=== PATIENT | female | born 2000 | race Caucasian/White ===

== ENCOUNTER 2024-07-01 18:38 | Emergency (ER) | payer SELFPAY ==
[2024-07-01 18:44] VITALS: BP 146/86; PULSE 109; TEMP 38.1; O2SAT 99; BMI 25.6
[2024-07-01 19:16] LABS: Internal Control Within Normal Limits; Strep A Antigen Screen Negative
[2024-07-01 19:18] LABS: Influenza Virus A Antigen Negative; Influenza Virus B Antigen Negative; Internal Control Within Normal Limits; SARS-CoV-2 Ag NEGATIVE (NEGATIVE)
--- NOTE | 2024-07-01 19:43 | ED_ITS ---
HPI HPI - General Adult General Chief complaint: Upper Respiratory Infection Stated complaint: sore throat Time Seen by Provider: 07/01/24 19:16 Source: patient and friend Mode of arrival: walk-in Limitations: no limitations History of Present Illness HPI narrative: Patient is a 24-year-old female who presents to the emergency department for evaluation of multiple complaints. She states her primary concern is a sore throat for the last 2 days associated with nasal congestion, cough and low-grade fevers. She further complains of vaginal lesions and rectal pain. She was seen at the [facility] emergency department 2 days ago when the lesions started and states that she had swabs performed to be checked for STDs, she also had her urine specimen checked. She states that she was not prescribed any medication for the lesions on the vagina states she also has sharp rectal pain. She has a history of constipation and takes MiraLAX infrequently although she has not had any significant abdominal pain or vomiting. No concern for . Related Data Previous Rx's ?Medication ?Instructions ?Recorded acyclovir 400 mg tablet 400 mg PO Q8H 10 days #30 tabs 07/01/24 nqrwflkyndcutva-ivlszrmrmwakdjf-RX 10 ml PO Q6H PRN cold symptoms 07/01/24 2 mg-30 mg-10 mg/5 mL oral syrup #200 mL (Bromfed DM) hydrocodone 5 mg-acetaminophen 325 1 tab PO Q6H PRN pain 3 days #12 07/01/24 mg tablet tabs ketorolac 10 mg tablet 10 mg PO TID PRN pain #10 tabs 07/01/24 lidocaine 5 % topical cream 1 applic topical QID PRN pain #30 07/01/24 grams ondansetron 4 mg disintegrating 4 mg PO Q6H PRN nausea and 07/01/24 tablet vomiting #12 tabs polyethylene glycol 3350 17 17 g PO DAILY #238 grams 07/01/24 gram/dose oral powder (Miralax) Allergies Allergy/AdvReac Type Severity Reaction Status Date / Time No Known Drug Allergies Allergy Verified 07/01/24 18:49 Opioid HPI Opioid Management Most Recent Opioid Data: No Data to Display Review of Systems ROS Constitutional Reports: fever; Denies: chills Ears, nose, mouth, and throat Reports: throat pain and nasal congestion Cardiovascular Denies: chest pain Respiratory Reports: cough; Denies: shortness of breath Gastrointestinal Reports: nausea and constipation; Denies: abdominal pain, vomiting or diarrhea Genitourinary Reports: painful urination and genital lesion Musculoskeletal Denies: back pain Integumentary/Breast Reports: rash, skin pain, sores and new lesion Hematologic/Lymphatic Denies: easy bruising or easy bleeding [facility] Social History Little interest or pleasure in doing things: not at all Feeling down, depressed, or hopeless: not at all Exam Narrative Exam Narrative: Gen.: Awake, alert, in no distress Head: Normocephalic, atraumatic ENT: Moist mucous membranes, pharyngeal erythema with no tonsillar edema or exudate. Uvula midline. Clear speech. No trismus or drooling. Right TM is mildly erythematous and injected, bulging, left TM is also bulging Respiratory: No respiratory distress, lungs clear bilaterally, no wheezing or rhonchi Cardio: Regular rate and rhythm Gastrointestinal: Abdomen is soft, nondistended and nontender to palpation : exam performed with Kelin Betancourt RN at bedside throughout the duration of the exam. Patient is noted to have multiple ulcerated lesions to the labia as well as less ulcerated lesions to the rectum. No noted hemorrhoids or rectal bleeding. No purulence noted. Extremities: Moves extremities equally Psych: Normal mood and affect Neuro: No focal neuro deficit Skin: Warm, dry, intact Constitutional Vital Signs, click to edit/add: Last Vital Signs Temp 100.5 F H 07/01/24 18:44 Pulse 109 H 07/01/24 18:44 Resp 18 07/01/24 18:44 BP 146/86 H 07/01/24 18:44 Pulse Ox 99 07/01/24 18:44 O2 Del Method Room Air 07/01/24 18:44 Course Vital Signs Vital signs: Vital Signs Temperature 100.5 F H 07/01/24 18:44 Pulse Rate 109 H 07/01/24 18:44 Respiratory Rate 18 07/01/24 18:44 Blood Pressure 146/86 H 07/01/24 18:44 Pulse Oximetry 99 07/01/24 18:44 Oxygen Delivery Method Room Air 07/01/24 18:44 Temperature 100.5 F H 07/01/24 18:44 Pulse Rate 109 H 07/01/24 18:44 Respiratory Rate 18 07/01/24 18:44 Blood Pressure 146/86 H 07/01/24 18:44 Pulse Oximetry 99 07/01/24 18:44 Oxygen Delivery Method Room Air 07/01/24 18:44 Medical Decision Making MDM Narrative Medical decision making narrative: Physical exam is consistent with upper respiratory infection, right otitis media. Patient was negative for COVID, influenza and strep. She was given Decadron and will be started on antibiotics and Bromfed for her upper respiratory symptoms. Her exam is consistent with genital herpes. She was placed on a stool softener for constipation as well as started on acyclovir, topical analgesia, NSAIDs and a short course of analgesics. She was referred to gynecology and were instructed to return to the ER if symptoms change or worsen. SUPERVISED APC VISIT, PHYSICIAN ATTESTATION: Based on the medical record the care appears appropriate. ? Medical Records Medical records reviewed: Yes I reviewed the patient's medical records Lab Data Lab results reviewed: Yes I reviewed the patient's lab results Labs: Lab Results 07/01/24 Range/Units 18:54 Influenza Type A Ag Negative Influenza Type B Ag Negative SARS-CoV-2 Ag (CV2AG) Negative (NEGATIVE) Streptococcus Screen Negative Discharge Plan Discharge Chief Complaint: Upper Respiratory Infection Clinical Impression: Upper respiratory infection, Pharyngitis, Acute right otitis media, Genital herpes Patient Disposition: Home, Self-Care Time of Disposition Decision: 19:39 Condition: Good Prescriptions / Home Meds: New acyclovir 400 mg tablet 400 mg PO Q8H 10 Days Qty: 30 0RF hydrocodone-acetaminophen 5-325 mg tablet 1 tab PO Q6H PRN (Reason: pain) 3 Days Qty: 12 0RF Rx Instructions: DX: R10.9 ketorolac 10 mg tablet 10 mg PO TID PRN (Reason: pain) Qty: 10 0RF gwrlwibngtkjkof-xvolxovmf-RS [Bromfed DM] 2-30-10 mg/5 mL syrup 10 ml PO Q6H PRN (Reason: cold symptoms) Qty: 200 0RF ondansetron 4 mg tablet,disintegrating 4 mg PO Q6H PRN (Reason: nausea and vomiting) Qty: 12 0RF polyethylene glycol 3350 [Miralax] 17 gram/dose powder 17 g PO DAILY Qty: 238 0RF lidocaine 5 % cream 1 applic topical QID PRN (Reason: pain) Qty: 30 0RF Print Language: Tanzanian Instructions: Genital Herpes Infection (ED), Ear Infection (ED), Upper Respiratory Infection (ED) Referrals: RUDY ANTHONY [Physician] - As soon as possible AUSTYN URBAN [Primary Care Provider] - 1 week
[2024-07-01] MEDS: ACETAMINOPHEN 325 MG TABLET 650 MG PO (19:59)
[2024-07-01] MEDS: LIDOCAINE 2% JELLY 20 ML UR (20:00)
[2024-07-01] MEDS: ACYCLOVIR 200 MG CAPSULE 400 MG PO (20:00)
[2024-07-01] MEDS: DEXAMETHASONE SOD PHOS 10 MG/ML VIAL PO (20:00)
== END 2024-07-01 20:06 | disposition home or self-care (01) ==
PROVIDERS: Emergency Medicine; Emergency Provider Emergency Medicine; Family Provider Family Medicine; PCP Family Medicine
DX: J06.9 Acute upper respiratory infection, unspecified (principal); J02.9 Acute pharyngitis, unspecified; H66.91 Otitis media, unspecified, right ear; B00.9 Herpesviral infection, unspecified; Z20.822 Contact with and (suspected) exposure to COVID-19
CPT/HCPCS: 87070; 87804; 87811; 87880; 99285; J1100

== ENCOUNTER 2024-07-13 16:33 | Emergency (ER) | payer OTHER, SELFPAY ==
[2024-07-13 16:36] VITALS: BP 126/82; PULSE 104; TEMP 37.4; O2SAT 100; BMI 25.6
--- NOTE | 2024-07-13 16:53 | ED.SKABFB1 ---
HPI - Skin/Abscess/Foreign Bdy General Chief complaint: Skin/Abscess/Foreign Body Stated complaint: HARD LUMPS ON LEG, SWELLING Time Seen by Provider: 07/13/24 16:34 Source: patient Mode of arrival: walk-in Limitations: no limitations History of Present Illness HPI narrative: 24-year-old female presents to the emergency department for painful raised red areas on both lower extremities. Its between her ankles and her knees and is not elsewhere on her body. Her sleeping partner does not have anything like this. She was on Macrobid about a week ago and about 2 weeks ago she had a viral illness. Related Data Previous Rx's ?Medication ?Instructions ?Recorded acyclovir 400 mg tablet 400 mg PO Q8H 10 days #30 tabs 07/01/24 onalowtumewruhf-yqyamjbhxpiycal-CC 10 ml PO Q6H PRN cold symptoms 07/01/24 2 mg-30 mg-10 mg/5 mL oral syrup #200 mL (Bromfed DM) hydrocodone 5 mg-acetaminophen 325 1 tab PO Q6H PRN pain 3 days #12 07/01/24 mg tablet tabs ketorolac 10 mg tablet 10 mg PO TID PRN pain #10 tabs 07/01/24 lidocaine 5 % topical cream 1 applic topical QID PRN pain #30 07/01/24 grams ondansetron 4 mg disintegrating 4 mg PO Q6H PRN nausea and 07/01/24 tablet vomiting #12 tabs polyethylene glycol 3350 17 17 g PO DAILY #238 grams 07/01/24 gram/dose oral powder (Miralax) acetaminophen 300 mg-codeine 30 mg 1 tab PO Q6H PRN pain 5 days #20 07/13/24 tablet tabs prednisone 10 mg tablet See Rx Instructions .Route 07/13/24 .COMPLEX #30 tabs Allergies Allergy/AdvReac Type Severity Reaction Status Date / Time No Known Drug Allergies Allergy Verified 07/01/24 18:49 Review of Systems ROS Narrative A ten point review of systems is negative except as noted above. PFSH PFSH Social History Little interest or pleasure in doing things: not at all Feeling down, depressed, or hopeless: not at all Exam Narrative Exam Narrative: Nurses note and vital signs reviewed and patient is not hypoxic. General: The patient appears well and in no apparent distress. Patient is resting comfortably on cart. Skin: Warm, dry, no pallor noted. There are numerous erythematous round to oval raised areas on both lower extremities, only between the knees and ankles. Head: Normocephalic, atraumatic Eye: Normal conjunctiva, no drainage Ears, Nose, Mouth, and Throat: oral mucosa is moist. Nares patent. Cardiovascular: Regular Rate and Rhythm Respiratory: Patient is in no distress, no accessory muscle use, lungs are clear to auscultation, no wheezing, rales or rhonchi Back: non-tender GI: Soft and nontender Musculoskeletal: No joint swelling Neurological: A&O, normal speech Psychiatric: Cooperative Constitutional Vital Signs, click to edit/add: Last Vital Signs Temp 99.4 F 07/13/24 16:36 Pulse 104 H 07/13/24 16:36 Resp 18 07/13/24 16:36 BP 126/82 07/13/24 16:36 Pulse Ox 100 07/13/24 16:36 O2 Del Method Room Air 07/13/24 16:36 Course Vital Signs Vital signs: Vital Signs Temperature 99.4 F 07/13/24 16:36 Pulse Rate 104 H 07/13/24 16:36 Respiratory Rate 18 07/13/24 16:36 Blood Pressure 126/82 07/13/24 16:36 Pulse Oximetry 100 07/13/24 16:36 Oxygen Delivery Method Room Air 07/13/24 16:36 Temperature 99.4 F 07/13/24 16:36 Pulse Rate 104 H 07/13/24 16:36 Respiratory Rate 18 07/13/24 16:36 Blood Pressure 126/82 07/13/24 16:36 Pulse Oximetry 100 07/13/24 16:36 Oxygen Delivery Method Room Air 07/13/24 16:36 MDM - Skin/Abscess/Foreign Bdy MDM Narrative Medical decision making narrative: Her workup is negative. My clinical impression is that she has erythema nodosum. The cause is uncertain. She was recently on Macrobid and recently had a viral illness. It could also be idiopathic. Findings are discussed with the patient and her family and she is prescribed prednisone. Treatment diagnosis and follow-up were discussed with the patient and her family. Differential Diagnosis Differential diagnosis: Likely viral exanthem, urticaria, cellulitis, insect bites, contact dermatitis and other (Erythema nodosum) Lab Data Attestation: I reviewed the patient's lab results. Labs: Lab Results 07/13/24 Range/Units 16:52 WBC 16.5 H (4.0-11.0) 10^3/uL RBC 4.41 (4.20-5.40) 10^6/uL Hgb 12.4 (12.0-16.0) g/dL Hct 38.5 (36.0-48.0) % MCV 87.3 (81.0-99.0) fL MCH 28.1 (26.7-34.0) pg MCHC 32.2 (29.9-35.2) g/dL RDW 12.9 (11.0-15.0) % Plt Count 369 (150-450) 10^3/uL MPV 9.9 (9.5-13.5) fL Neut % (Auto) 78.3 H (43.0-75.0) % Lymph % (Auto) 14.8 L (20.5-60.0) % [place] % (Auto) 5.4 (1.7-12.0) % Eos % (Auto) 0.7 L (0.9-7.0) % Baso % (Auto) 0.4 (0.2-2.0) % Neut # (Auto) 13.0 H (1.4-6.5) 10^3/uL Lymph # (Auto) 2.4 (1.2-3.8) 10^3/uL [place] # (Auto) 0.9 H (0.3-0.8) 10^3/uL Eos # (Auto) 0.1 (0.0-0.7) 10^3/uL Baso # (Auto) 0.1 (0.0-0.1) 10^3/uL Abs Immat Gran (auto) 0.06 H (0.00-0.03) 10^3/uL Imm/Tot Granulo (auto) 0.4 (0.0-0.5) % Sodium 140 (136-145) mmol/L Potassium 3.8 (3.5-5.1) mmol/L Chloride 103 (98-107) mmol/L Carbon Dioxide 25.7 (21.0-32.0) mmol/L Anion Gap 15.1 BUN 13.0 (7.0-18.0) mg/dL Creatinine 0.91 (0.55-1.02) mg/dL Est GFR ( Amer) >60 (>=60 mL/min/1.73m^2) Est GFR (Non-Af Amer) >60 (>=60 mL/min/1.73m^2) BUN/Creatinine Ratio 14.3 Glucose 98 (74-106) mg/dL Calcium 9.2 (8.5-10.1) mg/dL Serum HCG, Qual Negative (NEGATIVE) Discharge Plan Discharge Chief Complaint: Skin/Abscess/Foreign Body Clinical Impression: Erythema nodosum Patient Disposition: Home, Self-Care Time of Disposition Decision: 17:17 Condition: Good Mode of Transportation: Private Vehicle Prescriptions / Home Meds: New acetaminophen-codeine 300-30 mg tablet 1 tab PO Q6H PRN (Reason: pain) 5 Days Qty: 20 0RF prednisone 10 mg tablet See Rx Instructions .ROUTE .COMPLEX Qty: 30 0RF Rx Instructions: 4 by mouth daily for three days then 3 by mouth daily for three days then 2 by mouth daily for three days then 1 by mouth daily for three days No Action acyclovir 400 mg tablet 400 mg PO Q8H 10 Days Qty: 30 0RF hydrocodone-acetaminophen 5-325 mg tablet 1 tab PO Q6H PRN (Reason: pain) 3 Days Qty: 12 0RF Rx Instructions: DX: R10.9 ketorolac 10 mg tablet 10 mg PO TID PRN (Reason: pain) Qty: 10 0RF idwdaiwhdhxadqv-dnmwqonaw-DL [Bromfed DM] 2-30-10 mg/5 mL syrup 10 ml PO Q6H PRN (Reason: cold symptoms) Qty: 200 0RF ondansetron 4 mg tablet,disintegrating 4 mg PO Q6H PRN (Reason: nausea and vomiting) Qty: 12 0RF polyethylene glycol 3350 [Miralax] 17 gram/dose powder 17 g PO DAILY Qty: 238 0RF lidocaine 5 % cream 1 applic topical QID PRN (Reason: pain) Qty: 30 0RF Print Language: Macedonian Instructions: Acute Rash (ED) Referrals: AUSTYN URBAN [Primary Care Provider] - 1 week
[2024-07-13 16:57] LABS: Basophils Absolute Auto 0.1 10^3/uL (0.0-0.1); Basophils Percent Auto 0.4 % (0.2-2.0); Eosinophils Absolute Auto 0.1 10^3/uL (0.0-0.7); Eosinophils Percent Auto 0.7 % (0.9-7.0); Hematocrit 38.5 % (36.0-48.0); Hemoglobin 12.4 g/dL (12.0-16.0); Immature Granulocytes Abs Auto 0.06 10^3/uL (0.00-0.03); Immature Granulocytes Pct Auto 0.4 % (0.0-0.5); Lymphocytes Absolute Auto 2.4 10^3/uL (1.2-3.8); Lymphocytes Percent Auto 14.8 % (20.5-60.0); Mean Corpuscular HGB Conc 32.2 g/dL (29.9-35.2); Mean Corpuscular Hemoglobin 28.1 pg (26.7-34.0); Mean Corpuscular Volume 87.3 fL (81.0-99.0); Mean Platelet Volume 9.9 fL (9.5-13.5); Monocytes Absolute Auto 0.9 10^3/uL (0.3-0.8); Monocytes Percent Auto 5.4 % (1.7-12.0); Neutrophils Percent Auto 78.3 % (43.0-75.0); Platelet Count 369 10^3/uL (150-450); Red Blood Count 4.41 10^6/uL (4.20-5.40); Red Cell Distribution Width 12.9 % (11.0-15.0); White Blood Count 16.5 10^3/uL (4.0-11.0)
--- OUTSIDE RECORDS SUMMARY | 2024-07-13 16:58 | XMS_ITS | CCD ---
Author Organization [facility] Care Team Providers Care Sprayer Hand Name Role Phone Jenn Urban Primary Care Physician DR MARTELL WEEKS Attending Unavailable DESI, DR MARTELL Cordero Admitting Unavailable MISC, DR CANAS Primary Care Unavailable DESI, DR MARTELL Cordero Consulting Unavailable PAY ., DR ABARCA Attending Unavailable PAY ., DR ABARCA Admitting Unavailable PAY ., DR ABARCA Consulting Unavailable MISC, DR CANAS Primary Care Unavailable MISC, DR CANAS Primary Care Unavailable DIAB ., VINCE Attending Unavailable DIAB ., VINCE Admitting Unavailable DIAB ., VINCE Consulting Unavailable WILMAR, DR ZAMAN Consulting Unavailable Unavailable Primary Care Provider UnavailJenn Hinton MD Primary Care Provider Jenn Urban MD Unavailable Jenn Urban MD Primary Care Provider Luís Greenfield Attending Unavailable Jose Wilkinson Attending Unavailable Jose Wilkinson Attending Unavailable PASTORA OH Attending Unavailable PASTORA OH Referring Unavailable PASTORA OH Admitting Unavailable NATA MEDINA Attending Unavailable Nathaniel Weeks Attending Unavaila Luís Downey Attending Unavailable Luís Perla Admitting Unavailable Luís Perla Attending Unavailable Luís Perla Referring Unavailable Yoli Rahman Admitting Unavailable Yoli Rahman Attending Unavailable Yoli Rahman Referring Unavailable Luís Greenfield Attending Unavailable Luís Greenfield Attending Unavailable Luís Greenfield Attending Unavailable Ole Escalante Attending Unavailable Ole Escalante Admitting Unavailable JENN URBAN Primary Care Unavailable LEVI JOHNSON Attending Unavailable JENN URBAN Primary Care Unavailable LEONIE TIWARI Attending Unavailable PASTORA OH Attending Unavailable JENN URBAN Primary Care Unavailable ABNER ALMAZAN Referring Unavailable MAGO URBAN Attending Unavailable JENN URBAN Primary Care Unavailable ABNER ALMAZAN Referring Unavailable JENN URBAN Primary Care Unavailable ABNER ALMAZAN Attending Unavailable LEVI JOHNSON Referring Unavailable Allergies Allergy Classification Reported Allergen(s) Allergy Type Date of Onset Reaction(s) Facility (10 sources) Loperamide; Translations: [loperamide] Drug Allergy 08-11-2023 [facility] Medications Current Medications Medication Drug Class(es) Dates Sig (Normalized) Sig (Original) acetaminophen 325 mg / HYDROcodone bitartrate 5 mg oral tablet (1 source) Opioid Agonist Start: 04-12-2023 End: 04-15-2023 [place] 325 mg-5 mg oral tablet 1 tab(s), Oral, q6hr for pain for 3 day(s), 10 tab(s), Refill(s) 0, [facility]/pharmacy #[id number], 157.4, cm, 04/12/23 2:00:00 EDT, Height/Length Dosing, 56, kg, 04/12/23 2:00:00 EDT, Weight Dosing Start Date: 04/12/23 Stop Date: 04/15/23 Status: Ordered amoxicillin 875 mg oral tablet (2 sources) Penicillin-class Antibacterial Start: 05-27-2024 End: 06-01-2024 take 1 tablet by mouth every twelve hours amoxicillin 875 mg Tab 875 mg = 1 tab(s), Oral, q12hr, X 5 day(s), # 10 tab(s), Refills(s) 0, Pharmacy: [facility]/pharmacy #[id number], 158, cm, 05/27/24 13:27:00 EDT, Height/Length Dosing, 64.8, kg, 05/27/24 13:27:00 EDT, Weight Dosing Start Date: 05/27/24 Stop Date: 06/01/24 Status: Ordered brompheniramine maleate 0.4 mg/ml / dextromethorphan hydrobromide 2 mg/ml / pseudoephedrine hydrochloride 6 mg/ml oral solution (1 source) alpha-Adrenergic Agonist, Uncompetitive Z-dlxvya-R-aspartat e Receptor Antagonist, Sigma-1 Agonist Start: 06-28-2022 End: 07-05-2022 take 10 mL by mouth four times daily for cough and congestion Bromfed DM oral syrup 10 mL, Oral, QID for cough and congestion for 7 day(s), 280 mL, Refill(s) 0, [facility]/pharmacy #[id number], 157, cm, 06/28/22 17:24:00 EDT, Height/Length Dosing, 56, kg, 06/28/22 17:24:00 EDT, Weight Dosing Start Date: 06/28/22 Stop Date: 07/05/22 Status: Ordered ciprofloxacin 3 mg/ml / dexamethasone 1 mg/ml otic suspension (2 sources) Corticosteroid, Quinolone Antimicrobial Start: 05-27-2024 End: 06-03-2024 Ciprodex 0.3%-0.1% Susp-Otic 4 drop(s), Otic, BID for 7 day(s), 7.5 mL, Refill(s) 0, BOTH ears shake well before using wash hands before applying, [facility]/pharmacy #[id number], 158, cm, 05/27/24 13:27:00 EDT, Height/Length Dosing, 64.8, kg, 05/27/24 13:27:00 EDT, Weight Dosing Start Date: 05/27/24 Stop Date: 06/03/24 Status: Ordered clindamycin 300 mg oral capsule (5 sources) Lincosamide Antibacterial Start: 09-16-2020 take 1 capsule by mouth every eight hours clindamycin 300 mg oral cap 300 mg = 1 cap(s), Oral, q8hr, # 24 cap(s), Refills(s) 0, Pharmacy: [facility]/pharmacy #[id number], 157, cm, 09/16/20 21:21:00 EST, Height/Length Dosing, 52, kg, 09/16/20 21:21:00 EST, Weight Dosing Start Date: 09/16/20 Status: Ordered cloNIDine hydrochloride 0.3 mg oral tablet (20 sources) Central alpha-2 Adrenergic Agonist Start: 05-23-2023 take 2 tablets by mouth once daily at bedtime, then take 2 tablets by mouth once daily at bedtime cloNIDine HCl (CATAPRES) 0.3 mg tablet Take 0.6 mg by mouth daily at bedtime. Take 0.6 mg by mouth daily at bedtime. 05/23/2023 Active Start: 05-18-2017 take 2 tablets by [facility] once daily at bedtime cloNIDine 0.2 mg Tab 0.4 mg = 2 tab(s), Oral, Once a day (at bedtime), Refills(s) 0 Start Date: 05/18/17 Status: Ordered Comment on above: Take 0.6 mg by mouth daily at bedtime. Take 0.6 mg by mouth daily at bedtime. dicyclomine hydrochloride 10 mg oral capsule (4 sources) Anticholinergic Start: 03-19-20 take 1 capsule by mouth four times daily as needed Bentyl 10 mg Cap 10 mg = 1 cap(s), Oral, QID, PRN Other (see comment), For abdominal cramping, # 12 cap(s), Refills(s) 0, Pharmacy: [facility]/pharmacy #[id number], 157, cm, 03/19/23 6:49:00 EDT, Height/Length Dosing, 56, kg, 03/19/23 6:49:00 EDT, Weight Dosing Start Date: 03/19/23 Status: Ordered Start: 11-11-2022 End: 11-18-2022 take 1 capsule by mouth four times daily Bentyl 10 mg Cap 10 mg = 1 cap(s), Oral, QID, X 7 day(s), # 28 cap(s), Refills(s) 0, Pharmacy: [facility]/pharmacy #[id number], 158, cm, 11/11/22 15:01:00 EST, Height/Length Dosing, 57, kg, 11/11/22 15:01:00 EST, Weight Dosing Start Date: 11/11/22 Stop Date: 11/18/22 Status: Ordered enteric contrast (will be provided with radiology test) (1 source) Start: 06-21-2023 End: 06-22-2023 enteric contrast (will be provided with radiology test) For CT ABD/PEL W IVCON Routine order Administer, As Directed One Time Only, via Oral, Rectal, both Oral and Rectal, Enteric Tube, Stoma or Indwelling Catheter, Enteric Contrast as designated per enteric contrast guidelines 1 Each 0 06/21/2023 06/22/2023 Active Comment on above: For CT ABD/PEL W IVC ON Routine order Administer, As Directed One Time Only, via Oral, Rectal, both Oral and Rectal, Enteric Tube, Stoma or Indwelling Catheter, Enteric Contrast as designated per enteric contrast guidelines famotidine 20 mg oral tablet (2 sources) Histamine-2 Receptor Antagonist Start: 03-19-2023 take 1 tablet by mouth once daily Pepcid 20 mg Tab 20 mg = 1 tab(s), Oral, Daily, # 30 tab(s), Refills(s) 0, Pharmacy: [facility]/pharmacy #[id number], 157, cm, 03/19/23 6:49:00 EDT, Height/Length Dosing, 56, kg, 03/19/23 6:49:00 EDT, Weight Dosing Start Date: 03/19/23 Status: Ordered hydrOXYzine hydrochloride 25 mg oral tablet (7 sources) Antihistamine Start: 04-12-2023 hydrOXYzine HCl (ATARAX) 25 mg tablet 04/12/2023 Active ibuprofen 600 mg oral tablet (10 sources) Nonsteroidal Anti-inflammatory Drug Start: 05-18-2021 take 1 tablet by mouth every six hours at mealtime ibuprofen 600 mg Tab 600 mg = 1 tab(s), Oral, q6hr, with food or milk, # 40 tab(s), Refills(s) 0 Start Date: 05/18/21 Status: Ordered Start: 11-28-2018 take 1 tablet by tiffany th every eight hours ibuprofen 400 mg Tab 400 mg = 1 tab(s), Oral, q8hr, # 30 tab(s), Refills(s) 0 Start Date: 11/28/18 Status: Ordered iv contrast (will be provided with radiology test) (1 source) Start: 06-21-2023 End: 06-22-2023 iv contrast (will be provided with radiology test) CT ABD/PEL -Inject, intravenously, once for 1 dose.No IV access, insert saline lock prior to the beginning of sedation, infusion, injection of imaging exam. Discontinue saline lock post exam. If Pt. has a central line or IVAD, may access for administration according to line specific nursing protocol. Once exam is complete flush line and de-access according to line specific nursing protocol in the CT contrast administration guidelines link. 1 Each 0 06/21/2023 06/22/2023 Active Comment on above: CT ABD/PEL -Inject, intravenously, once for 1 dose.No IV access, insert saline lock prior to the beginning of sedation, infusion, injection of imaging exam. Discontinue saline lock post exam. If Pt. has a central line or IVAD, may access for administration according to line specific nursing protocol. Once exam is complete flush line and de-access according to line specific nursing protocol in the CT contrast administration guidelines link. lidocaine hydrochloride 0.02 mg/mg topical gel (2 sources) Antiarrhythmic, Amide Local Anesthetic Start: 06-28-2024 apply 0.1 g topically three times daily lidocaine Top 2% Gel 5 mL 0.1 gm, 5 mL, Topical, TID Pain, 30 mL, Refill(s) 0, [facility] #[id number], 158, cm, 06/28/24 14:54:00 EDT, Height/Length Dosing, 65.1, kg, 06/28/24 14:54:00 EDT, Weight Dosing Start Date: 06/28/24 Status: Ordered linaclotide 0.145 mg oral capsule (7 sources) Guanylate Cyclase-C Agonist Start: 06-12-2023 LINZESS 145 mcg capsule 06/12/2023 Active loratadine 10 mg oral tablet (7 sources) Start: 06-01-2023 take 1 tablet by mouth once loratadine (CLARITIN) 10 mg tablet Take 1 tablet by mouth every afternoon. 06/01/2023 Active Comment on above: Take 1 tablet by tiffany th every afternoon. magnesium citrate 58.2 mg/ml oral solution (3 sources) Start: 06-11-2024 take 8.725 g by mouth twice daily magnesium citrate 8.85% Oral Liq 296 mL 8.725 gram, 150 mL, Oral, BID, 300 mL, Refill(s) 0, may repeat in, [id number], 157.4, cm, 06/11/24 10:45:00 EDT, Height/Length Dosing, 65.8, kg, 06/11/24 10:45:00 EDT, Weight Dosing Start Date: 06/11/24 Status: Ordered bx rating 24 hr methylphenidate hydrochloride 54 mg extended release oral tablet (20 sources) Central Nervous System Stimulant Start: 05-27-2023 take 1 tablet by mouth once daily methylphenidate ER 54 mg biphasic tablet 1 TAB PO DAILY. FILL ON OR AFTER 05-23-23 05/27/2023 Active Start: 05-18-2017 take 1 tablet by tiffany th once daily in the morning methylphenidate 54 mg/24 hr oral tablet, extended release 54 mg = 1 tab(s), Oral, qAM, Refills(s) 0 Start Date: 05/18/17 Status: Ordered Comment on above: 1 TAB PO DAILY. FILL ON OR AFTER 05-23-23 nitrofurantoin, macrocrystals 25 mg / nitrofurantoin, monohydrate 75 mg oral capsule (3 sources) Nitrofuran Antibacterial Start: 4 End: take 1 capsule by mouth twice daily Macrobid 100 mg Cap 100 mg = 1 cap(s), Oral, BID, X 7 day(s), # 14 cap(s), Refills(s) 0, Pharmacy: [facility]/pharmacy #[id number], 158, cm, 06/28/24 14:54:00 EDT, Height/Length Dosing, 65.1, kg, 06/28/24 14:54:00 EDT, Weight Dosing Start Date: 06/28/24 Stop Date: 07/05/24 Status: Ordered Start: 06-11-2024 End: 06-18-2024 take 1 capsule by mouth twice daily Macrobid 100 mg Cap 100 mg = 1 cap(s), Oral, BID, X 7 day(s), # 14 cap(s), Refills(s) 0, Pharmacy: [facility]/pharmacy #[id number], 157.4, cm, 06/11/24 10:45:00 EDT, Height/Length Dosing, 65.8, kg, 06/11/24 10:45:00 EDT, Weight Dosing Start Date: 06/11/24 Stop Date: 06/18/24 Status: Ordered penicillin v potassium 500 mg oral tablet (5 sources) Start: 09-29-2021 take 1 tablet by mouth every six hours penicillin V potassium 500 mg Tab 500 mg = 1 tab(s), Oral, q6hr, # 40 tab(s), Refills(s) 0, Pharmacy: [facility]/pharmacy #[id number], 157.5, cm, 09/29/21 1:19:00 EST, Height/Length Dosing, 56.1, kg, 09/29/21 1:19:00 EST, Weight Dosing Start Date: 09/29/21 Status: Ordered polyethylene glycol 3350 90778 mg powder for oral solution (7 sources) Osmotic Laxative Start: 06-11-2024 polyethylene glycol 3350 Oral Pwdr for Recon 17 gram, Oral, Daily, dissolve in water before taking, # 255 gram, Refills(s) 0, Pharmacy: [facility]/pharmacy #[id number], 157.4, cm, 06/11/24 10:45:00 EDT, Height/Length Dosing, 65.8, kg, 06/11/24 10:45:00 EDT, Weight Dosing Start Date: 06/11/24 Status: Ordered Start: 11-11-2022 polyethylene g lycol 3350 Oral Pwdr for Recon 17 gram, Oral, Daily, dissolve in water before taking, # 527 gram, Refills(s) 0, [id number], cm, 11/11/22 15:01:00 EST, Height/Length Dosing, 57, kg, 11/11/22 15:01:00 EST, Weight Dosing Start Date: 11/11/22 Status: Ordered polyethylene glycol 3350 163237 mg / potassium chloride 2970 mg / sodium bicarbonate 6740 mg / sodium chloride 5860 mg / sodium sulfate 48418 mg powder for oral solution (5 sources) Osmotic Laxative Start: 09-11-2023 peg 3350-Electrolytes (GOLYTELY) 236-22.74-6.74 -5.86 gram suspension Refer to printed patient instructions that will be mailed to you. 4000 mL 09/11/2023 Active Comment on above: Refer to printed pat ient instructions that will be mailed to you. sertraline 50 mg oral tablet (16 sources) Serotonin Reuptake Inhibitor Start: 07-14-2023 take 1 tablet by mouth once daily sertraline 50 mg Tab 50 mg = 1 tab(s), Oral, Daily, Refills(s) 0 Start Date: 07/14/23 Status: Ordered Start: 05-23-2023 sertraline (ZO LOFT) 100 mg tablet Take 50 mg by mouth every afternoon. 05/23/2023 Active Start: 05-23-2023 take 1 tablet by mouth once se rtraline (ZOLOFT) 100 mg tablet Take 1 tablet by mouth every afternoon. 0 05/23/2023 Active Comment on above: Take 1 tablet by tiffany th every afternoon. Take 50 mg by mouth every afternoon. sodium picosulfate-magnesium oxide-citric acid (CLENPIQ) 10 mg-3.5 gram- 12 gram/175 mL oral solution (1 source) Start: 4 End: 4 sodium picosulfate-magnesiu m oxide-citric acid (CLENPIQ) 10 mg-3.5 gram- 12 gram/175 mL oral solution Refer to instructions given by your provider 350 mL 0 02/16/2024 02/18/2024 Active tamsulosin hydrochloride 0.4 mg oral capsule (1 source) alpha-Adrenergic Keely Start: 3 take 1 capsule by mouth once daily Flomax 0.4 mg Cap 0.4 mg = 1 cap(s), Oral, Daily, # 10 cap(s), Refills(s) 0, Pharmacy: [facility]/pharmacy #[id number], 157.4, cm, 04/12/23 2:00:00 EDT, Height/Length Dosing, 56, kg, 04/12/23 2:00:00 EDT, Weight Dosing Start Date: 04/12/23 Status: Ordered Zofran ODT 4 mg Tab-Dis (5 sources) Start: 3 take 1 tablet by mouth every eight hours Zofran ODT 4 mg Tab-Dis 4 mg = 1 tab(s), Oral, q8hr, # 12 tab(s), Refills(s) 0, Pharmacy: [facility]/pharmacy #[id number], 157.4, cm, 04/12/23 2:00:00 EDT, Height/Length Dosing, 56, kg, 04/12/23 2:00:00 EDT, Weight Dosing Start Date: 04/12/23 Status: Ordered Start: 03-19-2023 take 1 tablet by tiffany th every eight hours as needed for nausea Zofran ODT 4 mg Tab-Dis 4 mg = 1 tab(s), Oral, q8hr, PRN Nausea/Vomiting, # 12 tab(s), Refills(s) 0, Pharmacy: [facility]/pharmacy #[id number], 157, cm, 03/19/23 6:49:00 EDT, Height/Length Dosing, 56, kg, 03/19/23 6:49:00 EDT, Weight Dosing Start Date: 03/19/23 Status: Ordered Start: 01-24-2023 take 1 tablet by tiffany th every eight hours as needed for nausea Zofran ODT 4 mg Tab-Dis 4 mg = 1 tab(s), Oral, q8hr, PRN Nausea/Vomiting, # 20 tab(s), Refills(s) 0, Pharmacy: [facility]/pharmacy #[id number], 158, cm, 01/23/23 22:00:00 EDT, Height/Length Dosing, 57, kg, 01/23/23 22:00:00 EDT, Weight Dosing Start Date: 01/24/23 Status: Ordered Completed/Discontinued Medications Medication Drug Class(es) Dates Sig (Normalized) Sig (Original) {24 (drospirenone 3 MG / Ethinyl Estradiol 0.02 MG Oral Tablet) / 4 (Inert Ingredients 1 MG Oral Tablet) } Pack [Vestura] (12 sources) Progestin, Estrogen Start: 12-01-2023 Vestura 3 mg-0.02 mg oral tablet Refill(s) 0 Start Date: 12/01/23 Status: Ordered Start: 08-11-2023 take 1 tablet by tiffany th once daily Drospirenone-Ethinyl Estradiol (YOLIS, Isacc,) 3-0.02 mg per tablet Indications: Encounter for initial prescription of contraceptive pills Take 1 tablet by mouth once daily. 56 tablet 5 08/11/2023 Active Comment on above: Take 1 tablet by tiffany th once daily. 1 ml medroxyPROGESTERone acetate 150 mg/ml prefilled syringe (9 sources) Progestin Start: 3 medroxyPROGESTERone (DEPO-PROVERA) 150 mg/mL 150 MG EVERY 10 WEEKS 0 06/09/2023 Active Start: 11-28-2018 Depo Provera R efills(s) 0 Start Date: 11/28/18 Status: Ordered Comment on above: 150 MG EVERY 10 WEEK S Vitamin D3 50,000 intl units oral capsule (5 sources) Start: 05-18-2017 Vitamin D3 50,000 intl units oral capsule 50,000 International_Unit = 1 cap(s), Oral, Refills(s) 0 Start Date: 05/18/17 Status: Ordered Problems Active Problems Problem Classification Problem Date Documented Da te Episodic/Chronic Alcohol-related disorders (1 source) Alcoholic gastritis; 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-2023 Chronic Attention-deficit, conduct, and disruptive behavior disorders (15 sources) Attention deficit hyperactivity disorder; Translations: [Attention-deficit hyperactivity disorder, unspecified type] 05-07-2012 Chronic Bacterial infection; unspecified site (1 source) Bacterial infectious disease; Translations: [Bacterial infection, unspecified] Onset: 06-28-2024 Episodic Calculus of urinary tract (1 source) Renal colic; Translations: [Unspecified renal colic] Onset: 04-12-2023 Episodic Nausea and vomiting (4 sources) Nausea; Translations: [Nausea] Onset: 10-05-2022 Episodic Noninfectious gastroenteritis (1 source) Noninfective gastroenteritis and colitis, unspecified; Translations: [NONINFECTIVE GE AND COLITIS UNS] Onset: 10-06-2022 Episodic Other aftercare (1 source) Long-term current use of drug therapy; Translations: [Other predatory animal exterminator (current) drug therapy] Episodic Other ear and sense organ disorders (3 sources) Otitis externa of bilateral ears; Translations: [Unspecified otitis externa, bilateral] Onset: 05-27-2024 Chronic Other gastrointestinal disorders (4 sources) Constipation, unspecified; Translations: [Constipation, unspecified] Onset: 11-11-2022 Episodic Other gastrointestinal disorders (1 source) Constipation; Translations: [Other constipation] 10-23-2023 Episodic Other gastrointestinal disorders (1 source) Esophageal dysphagia; Translations: [Other dysphagia] 10-23-2023 Episodic Other lower respiratory disease (1 source) Cough; Translations: [Cough, unspecified] Onset: 06-28-2022 Episodic Other nutritional; endocrine; and metabolic disorders (1 source) Overweight in adulthood with body mass index of 25 or more but less than 30; Translations: [Body mass index (BMI) 25.0-25.9, adult] Onset: 05-27-2024 Episodic Other screening for suspected conditions (not mental disorders or infectious disease) (9 sources) CT of abdomen abnormal; Translations: [Abnormal findings on diagnostic imaging of other abdominal regions, including retroperitoneum] Onset: 12-01-2023 06-22-2023 Episodic Other skin disorders (1 source) Eruption; Translations: [Rash and other nonspecific skin eruption] Onset: 06-28-2024 Episodic Otitis media and related conditions (1 source) Otitis media; Translations: [Otitis media, unspecified, left ear] Onset: 05-27-2024 Episodic Residual codes; unclassified (8 sources) Family history of breast cancer; Translations: [Family history of malignant neoplasm of breast] Onset: 12-01-2023 Episodic Residual codes; unclassified (1 source) Patient encounter status; Translations: [Other specified health status] Onset: 05-27-2024 Episodic Substance-related disorders (1 source) Nicotine dependence, cigarettes, uncomplicated; Translations: [NICOTINE DEPEND CIGARETTES UNCOMP] Onset: 08-10-2022 Chronic Unclassified (1 source) CONTACT W/AND (SUSP) EXPOS COVID-19; Translations: [CONTACT W/AND (SUSP) EXPOS COVID-19] Onset: 10-06-2022 Urinary tract infections (2 sources) Urinary tract infectious disease; Translations: [Urinary tract infection, site not specified] Onset: 06-11-2024 Episodic Past or Other Problems Problem Classification Problem Date Documented Da te Episodic/Chronic Abdominal pain (4 sources) Abdominal pain; Translations: [Unspecified abdominal pain] Onset: 11-11-2022 Episodic Fever of unknown origin (3 sources) Fever, unspecified; Translations: [FEVER UNSPECIFIED] Onset: 08-08-2022 Episodic Influenza (1 source) Influenza due to other identified influenza virus with other respiratory manifestations; Translations: [FLU D/T OTH ID FLU VIR OTH RSP MANF] Onset: 08-10-2022 Episodic Other gastrointestinal disorders (1 source) Other constipation; Translations: [Other constipation] Onset: 10-23-2023 Episodic Other gastrointestinal disorders (1 source) Other dysphagia; Translations: [Esophageal dysphagia] Onset: 10-23-2023 Episodic Other upper respiratory infections (5 sources) Acute upper respiratory infection; Translations: [Acute upper respiratory infection, unspecified] Onset: 06-28-2022 Episodic Peritonitis and intestinal abscess (3 sources) Infectious disease of abdomen; Translations: [Peritonitis, unspecified] Onset: 10-23-2023 06-22-2023 Episodic Viral infection (2 sources) Disease caused by 2019-nCoV; Translations: [COVID-19] Onset: 07-14-2023 Results Test Name Value Interpretation Reference Range Alisha Cooper 07-11-2024 ANNEN Telephone (GASTPR) BELKYSSHERIE ([id number]) 02 F Date Time Provider Department 07/11/24 SARITA RESENDIZ [facility] During your visit today, we recorded the following information about you: Sarita Resendiz RN 07/11/2024 12:26 PM Signed GI Pre-Procedure Spoke with patient: Yes Confirmed date scheduled and patient report time: Yes Procedure Planned:Colonoscopy with or without biopsies based on clinical findings Is the patient on blood thinners?no Procedure Instructions given to patient: Yes, and they verbalized their understanding of instructions given Patient instructed to take prescribed preparation prior to procedure:Yes, and they verbalized their understanding of instructions given Patient instructed to have family/friend present for procedure transport 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 and They verbalized their understanding and agree to have a responsible adult accompany the patient to their procedure and remain in the endoscopy area. 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 Type of instruction given: Verbal by telephone contact. Sarita Resendiz RN Allergies As of Date: 07/11/2024 (No Active Allergies) Date Reviewed: 10/23/2023 Reviewed by: Kim Bourne RN - Fully Assessed Reason for Visit: Appointment [[id number]] Cmt: Pre-procedure instructions. Prescriptions as of 07/11/2024 - peg 3350-Electrolytes (GOLYTELY) 236-22.74-6.74 -5.86 gram suspension Refer to printed patient instructions that will be mailed to you. - Drospirenone-Ethinyl Estradiol (YOLIS, Isacc,) 3-0.02 mg per tablet Take 1 tablet by mouth once daily. - LINZESS 145 mcg capsule - loratadine (CLARITIN) 10 mg tablet Take 1 tablet by mouth every afternoon. - methylphenidate ER 54 mg biphasic tablet 1 TAB PO DAILY. FILL ON OR AFTER 05-23-23 - sertraline (ZOLOFT) 100 mg tablet Take 50 mg by mouth every afternoon. - cloNIDine HCl (CATAPRES) 0.3 mg tablet Take 0.6 mg by mouth daily at bedtime. Take 0.6 mg by mouth daily at bedtime. 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 Typing was confirmed by monoclonal antibody microscopic immunofluorescence. 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 Typing was confirmed by monoclonal antibody microscopic immunofluorescence. Performed at: [facility] [id number] PhD Yo Zamora Performed By: #### 1 [id number] #### [facility] [address] [place] [address] Chlam/GC/Trich,NAAon 024 C. trachomatis rRNA JERMAINE+probe Ql (Unsp spec) Negative Invalid Interpretation Code Negative [facility] Comment on above: Performed By: #### 1 [id number] #### [facility] [address] [place] [address] N. gonorrhoeae rRNA JERMAINE+probe Ql (Unsp spec) Negative Invalid Interpretation Code Negative [facility] Comment on above: Performed By: #### 1 [id number] #### [facility] [address] [place] [address] T. vaginalis rRNA JERMAINE+probe Ql (Unsp spec) Negative Invalid Interpretation Code Negative [facility] Comment on above: Result Comment: Perf ormed at: =G [facility] [address] BRENT Ayala [id number] MD Marck Barakat Performed By: #### 1 [id number] #### [facility] [address] [place] [address] C Urineon 06-30-2024 Bacteria identified Cx Nom (U) Microbiology PROCEDURE: Urine Culture [R1] SOURCE: U CleanCatch BODY SITE: COLLECTED DATE/TIME: 06/28/2024 15:08 EDT RECEIVED DATE/TIME: 06/28/2024 16:16 EDT START DATE/TIME: 06/28/2024 16:16 EDT FREE TEXT SOURCE: Toan Santo PA-C, PA-C, Toan FINAL REPORTS Final Report [] Verified Date/Time: 06/30/2024 09:37 EDT <10,000 cfu/ml Mixed skin contaminants Performing Locations R1: [facility], [address] [place] [address], [phone] , , Normal [facility] Comment on above: Performed By: #### 2 [id number] #### [facility] [address] [place] [id number] ED Note-Physicianon 06-29-20 ED Note-Physician ED Note-Physician Basic Information Time Seen: Toan Santo PA-C 06/28/2024 15:00 Chief Complaint pt states UTI s/s for 2-3 wks, finished ABX for UTI within last 2 weeks. noticed genital rash 2 days ago, open sores. white vaginal discharge. denies hx of std. denies chance of preg History of Present Illness 24-year-old female comes to the ED with concerns for STD. She states she was treated for urinary tract infection a few weeks ago with antibiotics with improvement. She now has had a reoccurrence of dysuria and urinary frequency. She also has noted a rash to the groin area with some itching and white discharge. No known STD exposure but she is concerned for this. No concern for with a Depo-Provera shot. No fever, chills, nausea or vomiting. Review of Systems A 10 point review of systems is negative except as noted above. Medical and Surgical History: Reviewed and noted Social history: Lives at home Tobacco: Denies Physical Exam Vitals & Measurements T: 37.2 ???C(Oral) HR: 102(Peripheral) RR: 16 BP: 123/91 SpO2: 100% HT: 158 cm WT: 65.1 kg BMI: 26.08 Nurses notes and vital signs reviewed and patient is not hypoxic. General: The patient appears well, resting comfortably. Skin: Warm, dry. Head: Atraumatic. Neck: No JVD. Eye: Normal conjunctiva. Ears, Nose, Mouth, and Throat: Moist mucous membranes. Cardiovascular: Strong distal pulses. Chest wall: Respiratory: Respirations are nonlabored. Back: Normal range of motion. Musculoskeletal: Normal ROM with no gross deformity. Gastrointestinal: Urological: External genitalia examination performed with female nurse, Pastora, at bedside. There is a vesicular blistery rash along the labia bilaterally suggestive of herpes. Neurological: Awake and alert. No focal deficits. Follows commands. Psychiatric: Cooperative. Medical Decision Making Patient has lesions concerning for herpetic etiology. Viral culture was obtained. Urinalysis does show evidence of infection. She is treated with topical lidocaine, Macrobid, discharged home with PCP follow-up with STD and viral cultures pending. Patient was encouraged to return to the ED if symptoms worsen or change. Assessment/Plan 1. UTI (urinary tract infection), bacterial (N39.0: Urinary tract infection, site not specified) Bacterial infection, unspecified (A49.9: Bacterial infection, unspecified) Vulvovaginal rash (R21: Rash and other nonspecific skin eruption) Orders: lidocaine topical, 0.1 gm, 5 mL, Topical, TID Pain, 30 mL, Refill(s) 0, [facility]/pharmacy #[id number], 158, cm, 06/28/24 14:54:00 EDT, Height/Length Dosing, 65.1, kg, 06/28/24 14:54:00 EDT, Weight Dosing nitrofurantoin, 100 mg = 1 cap(s), Oral, BID, X 7 day(s), # 14 cap(s), Refills(s) 0, Pharmacy: [facility]/pharmacy #[id number], 158, cm, 06/28/24 14:54:00 EDT, Height/Length Dosing, 65.1, kg, 06/28/24 14:54:00 EDT, Weight Dosing Chlam/GC/Trich,JERMAINE U Beta Hcg Qual UA with Cult Rflx Urine Culture Viral Cult, General Disposition Plan Patient Discharge Condition Disposition: Discharged home Condition: Improved and stable Counseled: Patient and/or family were counseled to workup, results, treatment plan and follow-up recommendations Discharge Prescription List Prescriptions lidocaine Top 2% Gel 5 mL, 0.1 gm= 5 mL, Topical, TID, PRN Macrobid 100 mg Cap, 100 mg= 1 cap(s), Oral, BID Follow-up With When Contact Information Jenn Urban In 3 days 07/01/2024 EDT [address] [place] [id number] Business (1) Additional Instructions: Patient Education Urinary Tract Infection, Adult Problem List/Past Medical History Ongoing ADHD - Attention deficit disorder with hyperactivity Dense breasts Family history of breast cancer in female Historical No qualifying data Procedure/Surgical History Denies. Medications Inpatient No active inpatient medications Home cloNIDine 0.2 mg Tab, 0.4 mg= 2 tab(s), Oral, Once a day (at bedtime) magnesium citrate 8.85% Oral Liq 296 mL, 8.725 gm= 150 mL, Oral, BID methylphenidate 54 mg/24 hr oral tablet, extended release, 54 mg= 1 tab(s), Oral, qAM polyethylene glycol 3350 Oral Pwdr for Recon, 17 gm, Oral, Daily sertraline 50 mg Tab, 50 mg= 1 tab(s), Oral, Daily Vestura 3 mg-0.02 mg oral tablet Allergies No Known Allergies Social History Alcohol - Denies Alcohol Use, 05/07/2012 Current, 08/21/2018 Substance Abuse - Denies Substance Abuse, 05/07/2012 Current, 08/21/2018 Tobacco - Denies Tobacco Use, 05/07/2012 Never (less than 100 in lifetime) Tobacco Use:. Never Smokeless Tobacco Use:. Household tobacco concerns: Yes., 05/27/2024 Never (less than 100 in lifetime) Tobacco Use:., 12/01/2023 Family History Breast cancer: Grandparent. Lab Results UA Spec Desc: Clean Catch (06/28/24 15:08:00) UA Color: Yellow (06/28/24 15:08:00) UA Clarity: Turbid Abnormal (06/28/24 15:08:00) UA Spec Grav: 1.026 (06/28/24 15:08:00) UA pH: 6.0 (06/28/24 15:08:00 (more content not included)... Normal [facility] Comment on above: Result Comment: Elec tronically Signed By: Toan Santo PA-C\.br\Date and Time Signed: 06/28/24 17:19 EDT\.br\Electronically Co-Signed By: Luís Greenfield DO\.br\Date and Time Co-Signed: 06/29/24 07:13 EDT ED Clinical Summaryon 2023 ED Clinical Summary ED Clinical Summary [place] [id number] ED Clinical Summary Person Information Name: SHERIE RIZVI [place] Age: 24 Years : 2000 Sex: Female Language: Belgian PCP: Jenn Urban MD Marital Status: Single MRN: Visit Id: Visit Reason: Urinary frequency; Vaginal discharge; Rash; POS UTI Speciality: Acuity: 4 Enc Type: Emergency Med Service: Emergency Arrival: 06/28/2024 14:46:44 Discharge: 06/28/2024 17:14:35 LOS: 000 02:28 Checkin: 06/28/2024 14:46:44 Checkout: 06/28/2024 17:14:35 Dispo Type: Home (Routine DC) EVENTS: Event Name Event Status Request Date/Time Start Date/Time Complete Date/Time Arrive Complete 06/28/2024 14:46:44 06/28/2024 14:46:44 06/28/2024 14:46:44 Document Home Meds Request 06/28/2024 14:46:44 Triage Complete 06/28/2024 14:46:44 06/28/2024 14:54:49 06/28/2024 14:54:49 Registration Complete 06/28/2024 14:48:08 06/28/2024 14:48:08 06/28/2024 14:48:08 Reg Complete Request 06/28/2024 14:48:08 Reg Bed Request Complete 06/28/2024 14:48:08 06/28/2024 14:48:08 06/28/2024 14:48:08 Bed Assign Complete 06/28/2024 14:54:55 06/28/2024 14:54:55 06/28/2024 14:54:55 Dr Exam Complete 06/28/2024 14:54:55 06/28/2024 15:00:38 06/28/2024 15:00:38 RN Exam Complete 06/28/2024 14:54:55 06/28/2024 16:04:35 06/28/2024 16:04:35 Registration Request 06/28/2024 15:00:38 Dr Exam Complete 06/28/2024 15:00:42 06/28/2024 15:00:42 06/28/2024 15:00:42 Pending Labs Collected 06/28/2024 15:02:15 Lab Complete 06/28/2024 15:02:15 06/28/2024 15:28:08 Urine Collect Complete 06/28/2024 15:02:15 06/28/2024 15:28:08 Pending Labs Inlab 06/28/2024 15:58:04 06/28/2024 15:58:04 Lab Inlab 06/28/2024 15:58:04 06/28/2024 15:58:04 Pending Labs Collected 06/28/2024 16:21:55 Discharge Complete 06/28/2024 16:50:54 06/28/2024 17:23:49 06/28/2024 17:23:49 Transfer Complete 06/28/2024 17:23:49 06/28/2024 17:23:49 06/28/2024 17:23:49 ADDRESS: [address] [id number] PHYS DOC NOTES: MEDICAL INFORMATION: Prescriptions Given: New Medications [id number], [address] [place], [place] [id number], [phone] lidocaine topical (lidocaine Top 2% Gel 5 mL) 5 Milliliter Topical 3 times a day as needed Pain. Refills: 0. nitrofurantoin (Macrobid 100 mg Cap) 1 Capsules By Mouth 2 times a day for 7 Days. Refills: 0. Medications to Continue with No Changes Other Medications clonidine (cloNIDine 0.2 mg Tab) 2 Tablets By Mouth once a day (at bedtime). drospirenone-ethinyl estradiol (Vestura 3 mg-0.02 mg oral tablet) magnesium citrate (magnesium citrate 8.85% Oral Liq 296 mL) 150 Milliliter By Mouth 2 times a day for 2 Doses. may repeat in. Refills: 0. methylphenidate (methylphenidate 54 mg/24 hr oral tablet, extended release) 1 Tablets By Mouth once a day (in the morning). polyethylene glycol 3350 (polyethylene glycol 3350 Oral Pwdr for Recon) 17 Gram By Mouth every day. dissolve in water before taking. Refills: 0. sertraline (sertraline 50 mg Tab) 1 Tablets By Mouth every day. PATIENT EDUCATION INFORMATION: Instructions: Urinary Tract Infection, Adult Follow up: With: Address: When: Jenn Urban [address] [place] [address], [address] [place] [address] Business (1) In 3 days 07/01/2024 DIAGNOSIS: 1:UTI (urinary tract infection), bacterial; Bacterial infection, unspecified; Vulvovaginal rash Normal [facility] ED Patient Summaryon ED Patient Summary ED Patient Summary [address] [address] Patient Discharge Instructions Person Information Name: SHERIE RIZVI Age: 24 Years Arrival Date: 06/28/2024 14:46:44 Discharge Diagnosis: 1:UTI (urinary tract infection), bacterial; Bacterial infection, unspecified; Vulvovaginal rash Primary Care Physician: Jenn Urban MD Provider Information Primary Provider: Luís Greenfield DO Advanced Transportation Program Director:Toan Santo PA-C The exam and treatment you received in the Emergency Department were for an urgent problem and are not intended as complete care. It is important that you follow up with a doctor, nurse practitioner, or physician???s assistant account manager for ongoing care. If your symptoms become worse or you do not improve as expected and you are unable to reach your usual health care provider, you should return to the Emergency Department. We are available 24 hours a day. SHERIE RIZVI has been given the following list of patient education materials, prescriptions and follow-up instructions: Follow-up Instructions: With: Address: When: Jenn Urban [address] [facility] [place] [phone] Business (1) In 3 days 07/01/2024 In the event that this physician does not participate in your insurance network, please consult with your insurance company to find a nearby participating provider. Patient Education Materials: Urinary Tract Infection, Adult A MESSAGE TO ALL PATIENTS REGARDING OPIOIDS PRESCRIPTION OPIOIDS: WHAT YOU NEED TO KNOW Prescription opioids can be used to help relieve abqbbmgk-jr-ayghbc pain and are often prescribed following a surgery or injury, or for certain health conditions. These medications can be an important part of the treatment but also come with serious risks. It is important to work with your healthcare provider to make sure you are getting the safest, most effective care. WHAT ARE THE RISKS AND SIDE EFFECTS OF OPIOID USE? Prescription opioids carry serious risks of addiction and overdose, especially with prolonged use. An opioid overdose, often marked by slowed breathing, can cause sudden . The use of prescription opioids can have a number of side effects as well, even when taken as directed: ??? Tolerance???meaning you might need to take more of the medication for the same pain relief ??? Physical dependence???meaning you have symptoms of withdrawal when a medication is stopped ??? Increased sensitivity to pain ??? Constipation ??? Nausea, vomiting, and dry mouth ??? Sleepiness and dizziness ??? Confusion ??? Depression ??? Low levels of testosterone that can result in lower sex drive, energy, and strength ??? Itching and sweating RISKS ARE GREATER WITH: ??? History of drug misuse, substance use disorder, or overdose ??? Mental health conditions (such as depression or anxiety) ??? Sleep apnea ??? Older age (65 years and older) ??? Avoid alcohol while taking prescription opioids. Also, unless specifically advised by your health care provider, medications to avoid include: ??? Benzodiazepines (such as Xanax or Valium) ??? Muscle relaxants (such as Soma or Flexeril) ??? Hypnotics (such as Ambien or Lunesta) ??? Other prescription opioids KNOW YOUR OPTIONS Talk to your health care provider about ways to manage your pain that don???t involve prescription opioids. Some of these options may actually work better and have fewer risks and side effects. Options may include: ??? Pain relievers such as acetaminophen, ibuprofen, and naproxen ??? Some medication that are also used for depression or seizures ??? Physical therapy and exercise ??? Cognitive behavioral therapy, a psychological, goal-directed approach, in which patients learn how to modify physical, behavioral, and emotional triggers of pain and stress. IF YOU ARE PRESCRIBED OPIOIDS FOR PAIN: ??? Never take opioids in greater amounts or more often than prescribed. ??? Follow up with your primary health care provider. o Work together to create a plan on how to manage your pain. o Talk about ways to help manage your pain that don???t involve prescription opioids. o Talk about any and all concerns and side effects. ??? Help prevent misuse and abuse o Never sell or share prescription opioids. o Never use another person???s prescription opioids. ??? Store prescription opioids in a secure place and out of reach of others (this may include visitors, children, friends, and family). ??? Safely dispose of unused prescription opioids: Find your community drug take-back program or your pharmacy mail-back program, or flush them down the toilet, following guidance from the Food and Drug Administration (www.fda.gov/Drugs/Res ourcesForYou). ??? Visit www.cdc.gov/drugoverdo se to learn about the risks of opioids abuse and overdose (more content not included)... Normal [facility] Reference Laboratory Testing Ordered By: Toan Santo on 06-28-2024 Viral Cult Spec Source Vaginal Invalid Interpretation Code [facility] [employer] Work Phone: SEROLOGYOrdered By: Jalyn sosa on 06-28-2024 HCG.beta subunit (U) [Moles/Vol] Negative Normal [facility] Man Sero U BetaHcg Qualon 06-28-2024 HCG.beta subunit (U) [Moles/Vol] Negative Normal [facility] Comment on above: Performed By: #### 2 [id number] #### [facility] [address] [place] [address] UA with Cult Rflxon 06-28-20 24 Bacteria Auto Ql (U) Trace Normal Trace Fish [facility] Comment on above: Performed By: #### 4 [id number] #### [facility] [address] [place] [address] Bilirubin Ql (U) Negative Normal Negative [facility] Comment on above: Performed By: #### 4 [id number] #### [facility] [address] [place] [address] Clarity (U) Turbid Abnormal Clear [facility] Comment on above: Performed By: #### 4 [id number] #### [facility] [address] [place] [address] Color (U) Yellow Normal Yellow [facility] Comment on above: Result Comment: Micr oscopic readings are only performed on those samples that meet specific criteria set forth by [facility]. Performed By: #### 4 [id number] #### [facility] [address] [place] [address] Epithelial cells.squamous Auto (Urine sed) [#/Area] >10 Invalid Interpretation Code [facility] Comment on above: Performed By: #### 4 [id number] #### [facility] [address] [place] [address] Glucose Ql (U) Negative Normal Negative [facility] Comment on above: Performed By: #### 4 [id number] #### [facility] [address] [place] [address] Hemoglobin Auto test strip (U) [Mass/Vol] 1+ mg/dL Abnormal Negative [facility] Comment on above: Performed By: #### 4 [id number] #### [facility] [address] [place] [address] Ketones Auto test strip Ql (U) Negative Normal Negative [facility] Comment on above: Performed By: #### 4 [id number] #### [facility] [address] [place] [address] Leukocyte esterase Auto test strip Ql (U) 250 Shaylee/uL Abnormal Negative [facility] Comment on above: Performed By: #### 4 [id number] #### [facility] [address] [place] [address] Mucus Auto Ql (U) Trace Normal Negative [facility] Comment on above: Performed By: #### 4 [id number] #### [facility] [address] [place] [address] Nitrite Auto test strip Ql (U) Negative Normal Negative [facility] Comment on above: Performed By: #### 4 [id number] #### [facility] [address] [place] [address] pH (U) 6.0 [pH] Invalid Interpretation Code 5.0-9.0 [facility] Comment on above: Performed By: #### 4 [id number] #### [facility] [address] [place] [address] Protein Ql (U) Trace Abnormal Negative [facility] Comment on above: Performed By: #### 4 [id number] #### [facility] [address] [place] [address] RBC Ql (U) 4-20 Abnormal 0-3 [facility] Comment on above: Performed By: #### 4 [id number] #### [facility] [address] [place] [address] Specific gravity (U) [Rel density] 1.026 Invalid Interpretation Code 1.005-1.030 [facility] Comment on above: Performed By: #### 4 [id number] #### [facility] [address] [place] [address] Urobilinogen (U) [Mass/Vol] Negative Normal Negative [facility] Comment on above: Performed By: #### 4 [id number] #### [facility] [address] [place] [address] WBC Auto (Urine sed) [#/Area] 16-25 Abnormal 0-5 [facility] Comment on above: Performed By: #### 4 [id number] #### [facility] [address] [place] [address] Type of Urine collection method Clean Catch Normal [facility] Comment on above: Performed By: #### 4 [id number] #### [facility] [address] [place] [address] URINALYSISOrdered By: SYSTEM SYSTEM on 06-28-2024 Bacteria Auto Ql (U) Trace /HPF Normal Trace/HPF [facility] UA Auto SS Bilirubin Ql (U) Negative Normal Negativemg/dL [facility] UA Auto SS Clarity (U) Turbid *ABN* (06/28/24 3:08 PM) Invalid Interpretation Code Clear [facility] UA Auto SS Color (U) Yellow 1 (06/28/24 3:08 PM) Normal Yellow [facility] UA Auto SS Comment on above: Interpretive Data: M icroscopic readings are only performed on those samples that meet specific criteria set forth by [facility]. Epithelial cells.squamous Auto (Urine sed) [#/Area] >10 graded/HPF Invalid Interpretation Code [facility] UA Auto SS Glucose Ql (U) Negative Normal Negativemg/dL [facility] UA Auto SS Hemoglobin Auto test strip (U) [Mass/Vol] 1+ mg/dL Invalid Interpretation Code Negativemg/dL [facility] UA Auto SS Ketones Auto test strip Ql (U) Negative Normal Negativemg/dL [facility] UA Auto SS Leukocyte esterase Auto test strip Ql (U) 250 Shaylee/uL Shaylee/uL Invalid Interpretation Code NegativeLeu/uL [facility] UA Auto SS Mucus Auto Ql (U) Trace graded/LPF Normal Negati vegraded/ LPF [facility] UA Auto SS Nitrite Auto test strip Ql (U) Negative Normal Negativemg/dL [facility] UA Auto SS pH (U) 6.0 *NA* (06/28/24 3:08 PM) Invalid Interpretation Code 5.0 - 9.0 [facility] UA Auto SS Protein Ql (U) Trace mg/dL Invalid Interpretation Code Negativemg/dL [facility] UA Auto SS RBC Ql (U) 4-20 graded/HPF Invalid Interpretation Code 0-3graded/HPF [facility] UA Auto SS Specific gravity (U) [Rel density] 1.026 *NA* (06/28/24 3:08 PM) Invalid Interpretation Code 1.005 - 1.030 [facility] UA Auto SS Urobilinogen (U) [Mass/Vol] Negative Normal Negativemg/dL [facility] UA Auto SS WBC Auto (Urine sed) [#/Area] 16-25 graded/HPF Invalid Interpretation Code 0-5graded/HPF [facility] UA Auto SS URINALYSISOrdered By: Toan Santo on 06-28-2024 UA Spec Desc Clean Catch (06/28/24 3:08 PM) Normal [facility] UA Auto SS Work Phone: Viral Cult, Generalon 2023 Viral Cult Spec Source Vaginal Invalid Interpretation Code [facility] Comment on above: Performed By: #### 1 [id number] #### [facility] [address] [place] [address] ED Note-Physicianon 06-17-20 ED Note-Physician ED Note-Physician Basic Information Time Seen: Toan Santo PA-C 06/11/2024 10:41 Chief Complaint abd pain. pressure in bladder. constipated for a few weeks. History of Present Illness 23-year-old female comes into the ED for evaluation abdominal pain. States over the last couple of weeks she has had proper constipation now is developed tenderness along the lower abdomen with pressure in the bladder. She has developed some associated dysuria. No fever, chills, nausea or vomiting. She tried ozlw-tcb-wggnoty Gas-X and Tums without much relief. No concern for . No other complaints or concerns. Review of Systems A 10 point review of systems is negative except as noted above. Medical and Surgical History: Reviewed and noted Social history: Lives at home Tobacco: Denies Physical Exam Vitals & Measurements T: 36.5 ?C(Oral) HR: 84(Monitored) RR: 16 BP: 105/72 SpO2: 99% HT: 157.4 cm WT: 65.8 kg BMI: 26.56 Nurses notes and vital signs reviewed and patient is not hypoxic. General: The patient appears well, resting comfortably. Skin: Warm, dry. Head: Atraumatic. Neck: No JVD. Eye: Normal conjunctiva. Ears, Nose, Mouth, and Throat: Moist mucous membranes. Cardiovascular: Strong distal pulses. Chest wall: Respiratory: Respirations are nonlabored. Back: Normal range of motion. Musculoskeletal: Normal ROM with no gross deformity. Gastrointestinal: Abdomen is soft throughout. No guarding rebound or rigidity. No distention Urological: Neurological: Awake and alert. No focal deficits. Follows commands. Psychiatric: Cooperative. Medical Decision Making Patient overall well-appearing examination. Urinalysis does show evidence of infection. She does have symptoms with this. X-ray consistent with constipation as well. She started on MiraLAX, magnesium citrate and Macrobid. She is discharged home to follow-up with PCP. Patient was encouraged to return to the ED if symptoms worsen or change. Assessment/Plan Constipation (K59.00: Constipation, unspecified) UTI (urinary tract infection) (N39.0: Urinary tract infection, site not specified) Orders: magnesium citrate, 8.725 gram, 150 mL, Oral, BID, 300 mL, Refill(s) 0, may repeat in, [facility]/pharmacy #[id number], 157.4, cm, 06/11/24 10:45:00 EDT, Height/Length Dosing, 65.8, kg, 06/11/24 10:45:00 EDT, Weight Dosing nitrofurantoin, 100 mg = 1 cap(s), Oral, BID, X 7 day(s), # 14 cap(s), Refills(s) 0, Pharmacy: [facility]/pharmacy #[id number], 157.4, cm, 06/11/24 10:45:00 EDT, Height/Length Dosing, 65.8, kg, 06/11/24 10:45:00 EDT, Weight Dosing polyethylene glycol 3350, 17 gram, Oral, Daily, dissolve in water before taking, # 255 gram, Refills(s) 0, Pharmacy: [facility]/pharmacy #[id number], 157.4, cm, 06/11/24 10:45:00 EDT, Height/Length Dosing, 65.8, kg, 06/11/24 10:45:00 EDT, Weight Dosing U Beta Hcg Qual UA with Cult Rflx Urine Culture XR Abdomen 1 View Disposition Plan Patient Discharge Condition Disposition: Admitted to the hospital Condition: Improved and stable Counseled: Patient and/or family were counseled to workup, results, treatment plan and follow-up recommendations Discharge Prescription List Prescriptions Macrobid 100 mg Cap, 100 mg= 1 cap(s), Oral, BID magnesium citrate 8.85% Oral Liq 296 mL, 8.725 gm= 150 mL, Oral, BID polyethylene glycol 3350 Oral Pwdr for Recon, 17 gm, Oral, Daily Follow-up With When Contact Information Jenn Wilmar In 3 days 06/14/2024 EDT [address] [place] [phone]- Business (1) Additional Instructions: Patient Education Urinary Tract Infection, Adult Constipation, Adult Attestation I performed a substantive part of the MDM during the patient?s E/M visit. I personally made or approved the documented management plan and acknowledge its risk of complications. (Independent Interpretation) My (EKG/X-Ray/US/CT) interpretation as above. (Discussion) Management/test interpretation discussed with APC. This report was transcribed using voice recognition software. Every effort was made to ensure accuracy, however, inadvertently computerized school standards coach mistakes may be present. Appropriate healthcare PPE was used in evaluating this patient. Problem List/Past Medical History Ongoing ADHD - Attention deficit disorder with hyperactivity Dense breasts Family history of breast cancer in female Historical No qualifying data Procedure/Surgical History Denies. Medications Inpatient No active inpatient medications Home cloNIDine 0.2 mg Tab, 0.4 mg= 2 tab(s), Oral, Once a day (at bedtime) Macrobid 100 mg Cap, 100 mg= 1 cap(s), Oral, BID magnesium citrate 8.85% Oral Liq 296 mL, 8.725 gm= 150 mL, Oral, BID methylphenidate 54 mg/24 hr oral tablet, extended release, 54 mg= 1 tab(s), Oral, qAM polyethylene glycol 3350 Oral Pwdr for Recon, 17 gm, Oral, Daily sertraline 50 mg Tab, 50 mg= 1 tab(s), Oral, Daily Vestura 3 mg-0.02 mg oral tablet Allergies No Known Allergies Social His (more content not included)... Normal [facility] Comment on above: Result Comment: Elec tronically Signed By: Toan Santo PA-C\.br\Date and Time Signed: 06/11/24 13:25 EDT\.br\Electronically Co-Signed By: Luís Greenfield DO\.br\Date and Time Co-Signed: 06/17/24 07:37 EDT C Urineon 06-13-2024 Bacteria identified Cx Nom (U) Microbiology PROCEDURE: Urine Culture [R1] SOURCE: U CleanCatch BODY SITE: COLLECTED DATE/TIME: 06/11/2024 10:51 EDT RECEIVED DATE/TIME: 06/11/2024 12:31 EDT START DATE/TIME: 06/11/2024 12:31 EDT FREE TEXT SOURCE: Toan Santo PA-C, PA-C, Jansen FINAL REPORTS Final Report [] Verified Date/Time: 06/13/2024 10:42 EDT >100,000 cfu/ml Klebsiella pneumoniae SUSCEPTIBILITY RESULTS __ LEGEND: S=Susceptible, N/R=Not Reported, Blank=Data not available, or drug not advisable or tested, I=Intermediate, ESBL=Extended spectrum beta-lactamase, R=Resistant, TFG=Thymidine-dependen t strain, АНДРЕЙ=Beta-lactamase positive, ÁLVARO=mcg/m;(mg/L), S*=Predicted susceptible interp, R*=Predicted resistant interp Klepne Antibiotic ÁLVARO Dilutn ÁLVARO Interp Ampicillin >16 R Ampicillin/ <=8/4 S Sulbactam Aztreonam <=4 S Cefazolin <=2 S Cefepime <=2 S Ceftazidime <=1 S Ceftazidime/ <=8 S Avibactam Ceftriaxone <=1 S Cefuroxime <=4 S Ciprofloxacin <=0.25 S Ertapenem <=0.5 S Gentamicin <=2 S Levofloxacin <=0.5 S Meropenem <=1 S Nitrofurantoin 64 I Piperacillin/ <=8 S Tazobactam Tetracycline <=4 S Tobramycin <=2 S Trimethoprim/ <=2/38 S Sulfa Performing Locations R1: This test was performed at: [facility], [address] [place] [address], [facility] , , [facility] Comment on above: Performed By: #### 2 [id number] #### [facility] [address] [place] [address] ED Clinical Summaryon 2023 ED Clinical Summary ED Clinical Summary [address] [address] ED Clinical Summary Person Information Name: SHERIE RIZVI/[place]Getachew Age: 23 Years : 2000 Sex: Female Language: Belgian PCP: Jenn Urban MD Marital Status: Single MRN: Visit Id: Visit Reason: Constipation; Abdominal pain; ABD PAIN Speciality: Acuity: 3 Enc Type: Emergency Med Service: Emergency Arrival: 06/11/2024 10:35:30 Discharge: 06/11/2024 12:20:02 LOS: 000 01:45 Checkin: 06/11/2024 10:35:30 Checkout: 06/11/2024 12:20:02 Dispo Type: Home (Routine DC) EVENTS: Event Name Event Status Request Date/Time Start Date/Time Complete Date/Time Arrive Complete 06/11/2024 10:35:30 06/11/2024 10:35:30 06/11/2024 10:35:30 Document Home Meds Request 06/11/2024 10:35:30 Triage Complete 06/11/2024 10:35:30 06/11/2024 10:45:22 06/11/2024 10:45:22 Bed Assign Complete 06/11/2024 10:39:05 06/11/2024 10:39:05 06/11/2024 10:39:05 Dr Exam Complete 06/11/2024 10:39:05 06/11/2024 10:41:58 06/11/2024 10:41:58 RN Exam Complete 06/11/2024 10:39:05 06/11/2024 10:49:03 06/11/2024 10:49:03 Registration Complete 06/11/2024 10:41:58 06/11/2024 10:45:32 06/11/2024 11:09:57 Pending Labs Complete 06/11/2024 10:49:52 06/11/2024 11:12:03 Dr Exam Complete 06/11/2024 10:50:24 06/11/2024 10:50:24 06/11/2024 10:50:24 X-Ray Complete 06/11/2024 10:59:57 06/11/2024 11:29:06 06/11/2024 11:44:55 Pending Labs Complete 06/11/2024 11:00:19 06/11/2024 11:24:50 Lab Complete 06/11/2024 11:00:19 06/11/2024 11:24:50 Urine Collect Complete 06/11/2024 11:00:19 06/11/2024 11:24:50 Reg Complete Request 06/11/2024 11:09:57 Reg Bed Request Complete 06/11/2024 11:09:57 06/11/2024 11:09:57 06/11/2024 11:09:57 Pending Labs Collected 06/11/2024 11:12:04 06/11/2024 11:12:04 Lab Collected 06/11/2024 11:12:04 06/11/2024 11:12:04 Wet Read Complete 06/11/2024 11:44:55 06/11/2024 11:53:13 06/11/2024 11:53:13 Discharge Complete 06/11/2024 12:17:26 06/11/2024 12:23:12 06/11/2024 12:23:12 Transfer Complete 06/11/2024 12:23:12 06/11/2024 12:23:12 06/11/2024 12:23:12 ADDRESS: [address] [id number] PHYS DOC NOTES: MEDICAL INFORMATION: Prescriptions Given: New Medications [id number], [address] [place], [place] [phone], [phone] magnesium citrate (magnesium citrate 8.85% Oral Liq 296 mL) 150 Milliliter By Mouth 2 times a day for 2 Doses. may repeat in. Refills: 0. nitrofurantoin (Macrobid 100 mg Cap) 1 Capsules By Mouth 2 times a day for 7 Days. Refills: 0. polyethylene glycol 3350 (polyethylene glycol 3350 Oral Pwdr for Recon) 17 Gram By Mouth every day. dissolve in water before taking. Refills: 0. Medications to Continue with No Changes Other Medications clonidine (cloNIDine 0.2 mg Tab) 2 Tablets By Mouth once a day (at bedtime). drospirenone-ethinyl estradiol (Vestura 3 mg-0.02 mg oral tablet) methylphenidate (methylphenidate 54 mg/24 hr oral tablet, extended release) 1 Tablets By Mouth once a day (in the morning). sertraline (sertraline 50 mg Tab) 1 Tablets By Mouth every day. PATIENT EDUCATION INFORMATION: Instructions: Urinary Tract Infection, Adult; Constipation, Adult Follow up: With: Address: When: Jenn Urban [address] , [address] [place], [place] [phone] Business (1) In 3 days 06/14/2024 DIAGNOSIS: Constipation; UTI (urinary tract infection) Normal [facility] ED Patient Summaryon ED Patient Summary ED Patient Summary [address] [address] Patient Discharge Instructions Person Information Name: SHERIE RIZVI Age: 23 Years Arrival Date: 06/11/2024 10:35:30 Discharge Diagnosis: Constipation; UTI (urinary tract infection) Primary Care Physician: Jenn Urban MD Provider Information Primary Provider: Luís Greenfield DO Advanced Transportation Program Director:Toan Santo PA-C The exam and treatment you received in the Emergency Department were for an urgent problem and are not intended as complete care. It is important that you follow up with a doctor, nurse practitioner, or physician?s assistant account manager for ongoing care. If your symptoms become worse or you do not improve as expected and you are unable to reach your usual health care provider, you should return to the Emergency Department. We are available 24 hours a day. SHERIE RIZVI has been given the following list of patient education materials, prescriptions and follow-up instructions: Follow-up Instructions: With: Address: When: Jenn Urban [address] [place] [address]., [address] [place] [phone] Business (1) In 3 days 06/14/2024 In the event that this physician does not participate in your insurance network, please consult with your insurance company to find a nearby participating provider. Patient Education Materials: Urinary Tract Infection, Adult; Constipation, Adult A MESSAGE TO ALL PATIENTS REGARDING OPIOIDS PRESCRIPTION OPIOIDS: WHAT YOU NEED TO KNOW Prescription opioids can be used to help relieve ynvrrydi-on-ncmokn pain and are often prescribed following a surgery or injury, or for certain health conditions. These medications can be an important part of the treatment but also come with serious risks. It is important to work with your healthcare provider to make sure you are getting the safest, most effective care. WHAT ARE THE RISKS AND SIDE EFFECTS OF OPIOID USE? Prescription opioids carry serious risks of addiction and overdose, especially with prolonged use. An opioid overdose, often marked by slowed breathing, can cause sudden . The use of prescription opioids can have a number of side effects as well, even when taken as directed: ? Tolerance?meaning you might need to take more of the medication for the same pain relief ? Physical dependence?meaning you have symptoms of withdrawal when a medication is stopped ? Increased sensitivity to pain ? Constipation ? Nausea, vomiting, and dry mouth ? Sleepiness and dizziness ? Confusion ? Depression ? Low levels of testosterone that can result in lower sex drive, energy, and strength ? Itching and sweating RISKS ARE GREATER WITH: ? History of drug misuse, substance use disorder, or overdose ? Mental health conditions (such as depression or anxiety) ? Sleep apnea ? Older age (65 years and older) ? Avoid alcohol while taking prescription opioids. Also, unless specifically advised by your health care provider, medications to avoid include: ? Benzodiazepines (such as Xanax or Valium) ? Muscle relaxants (such as Soma or Flexeril) ? Hypnotics (such as Ambien or Lunesta) ? Other prescription opioids KNOW YOUR OPTIONS Talk to your health care provider about ways to manage your pain that don?t involve prescription opioids. Some of these options may actually work better and have fewer risks and side effects. Options may include: ? Pain relievers such as acetaminophen, ibuprofen, and naproxen ? Some medication that are also used for depression or seizures ? Physical therapy and exercise ? Cognitive behavioral therapy, a psychological, goal-directed approach, in which patients learn how to modify physical, behavioral, and emotional triggers of pain and stress. IF YOU ARE PRESCRIBED OPIOIDS FOR PAIN: ? Never take opioids in greater amounts or more often than prescribed. ? Follow up with your primary health care provider. o Work together to create a plan on how to manage your pain. o Talk about ways to help manage your pain that don?t involve prescription opioids. o Talk about any and all concerns and side effects. ? Help prevent misuse and abuse o Never sell or share prescription opioids. o Never use another person?s prescription opioids. ? Store prescription opioids in a secure place and out of reach of others (this may include visitors, children, friends, and family). ? Safely dispose of unused prescription opioids: Find your community drug take-back program or your pharmacy mail-back program, or flush them down the toilet, following guidance from the Food and Drug Administration (www.fda.gov/Drugs/Res ourcesForYou). ? Visit www.cdc.gov/drugoverdo se to learn about the risks of opioids abuse and overdose. ? If you believe you may be struggling with addiction, tell your health healthcare educator and ask (more content not included)... Normal [facility] SEROLOGYOrdered By: Lili Guerrero on 06-11-2024 HCG.beta subunit (U) [Moles/Vol] Negative Normal [facility] Sero U BetaHcg Qualon 06-11-2024 HCG.beta subunit (U) [Moles/Vol] Negative Normal [facility] Comment on above: Performed By: #### 2 [id number] #### [facility] [address] [place] [address] UA with Cult Rflxon 06-11-20 24 Bacteria Auto Ql (U) Trace Normal Trace Fish er [facility] Comment on above: Performed By: #### 4 [id number] #### [facility] [address] [place] [address] Bilirubin Ql (U) Negative Normal Negative [facility] Comment on above: Performed By: #### 4 [id number] #### [facility] [address] [place] [address] Clarity (U) Clear Normal Clear [facility] Comment on above: Performed By: #### 4 [id number] #### [facility] [address] [place] [address] Color (U) Light-Yellow Normal Yellow [facility] Comment on above: Result Comment: Micr oscopic readings are only performed on those samples that meet specific criteria set forth by [facility]. Performed By: #### 4 [id number] #### [facility] [address] [place] [address] Epithelial cells.squamous Auto (Urine sed) [#/Area] 5-8 Invalid Interpretation Code [facility] Comment on above: Performed By: #### 4 [id number] #### [facility] [address] [place] [address] Glucose Ql (U) Negative Normal Negative [facility] Comment on above: Performed By: #### 4 [id number] #### [facility] [address] [place] [address] Hemoglobin Auto test strip (U) [Mass/Vol] Negative Normal Negative [facility] Comment on above: Performed By: #### 4 [id number] #### [facility] [address] [place] [address] Ketones Auto test strip Ql (U) Negative Normal Negative [facility] Comment on above: Performed By: #### 4 [id number] #### [facility] [address] [place] [address] Leukocyte esterase Auto test strip Ql (U) 25 Shaylee/uL Normal Negative [facility] Comment on above: Performed By: #### 4 [id number] #### [facility] [address] [place] [address] Mucus Auto Ql (U) Negative Normal Negative [facility] Comment on above: Performed By: #### 4 [id number] #### [facility] [address] [place] [address] Nitrite Auto test strip Ql (U) Negative Normal Negative [facility] Comment on above: Performed By: #### 4 [id number] #### [facility] [address] [place] [address] pH (U) 6.5 [pH] Invalid Interpretation Code 5.0-9.0 [facility] Comment on above: Performed By: #### 4 [id number] #### [facility] [address] [place] [address] Protein Ql (U) Negative Normal Negative [facility] Comment on above: Performed By: #### 4 [id number] #### [facility] [address] [place] [address] RBC Ql (U) 0-3 Normal 0-3 [facility] Comment on above: Performed By: #### 4 [id number] #### [facility] [address] [place] [address] Specific gravity (U) [Rel density] 1.014 Invalid Interpretation Code 1.005-1.030 [facility] Comment on above: Performed By: #### 4 [id number] #### [facility] [address] [place] [address] Urobilinogen (U) [Mass/Vol] Negative Normal Negative [facility] Comment on above: Performed By: #### 4 [id number] #### [facility] [address] [place] [address] WBC Auto (Urine sed) [#/Area] 6-15 Abnormal 0-5 [facility] Comment on above: Performed By: #### 4 [id number] #### [facility] [address] [place] [address] Type of Urine collection method Clean Catch Normal [facility] Comment on above: Performed By: #### 4 [id number] #### [facility] [address] [place] [id number] URINALYSISOrdered By: SYSTEM SYSTEM on 06-11-2024 Bacteria Auto Ql (U) Trace /HPF Normal Trace/HPF [facility] UA Auto SS Bilirubin Ql (U) Negative Normal Negativemg/dL [facility] UA Auto SS Clarity (U) Clear (06/11/24 10:51 AM) Normal Clear FT UA Auto SS Color (U) Light-Yellow 1 (06/11/24 10:51 AM) Normal Yellow [facility] UA Auto SS Comment on above: Interpretive Data: M icroscopic readings are only performed on those samples that meet specific criteria set forth by [facility]. Epithelial cells.squamous Auto (Urine sed) [#/Area] 5-8 graded/HPF Invalid Interpretation Code [facility] UA Auto SS Glucose Ql (U) Negative Normal Negativemg/dL [facility] UA Auto SS Hemoglobin Auto test strip (U) [Mass/Vol] Negative Normal Negativemg/dL [facility] UA Aut o SS Ketones Auto test strip Ql (U) Negative Normal Negativemg/dL [facility] UA Auto SS Leukocyte esterase Auto test strip Ql (U) 25 Shaylee/uL Shaylee/uL Normal NegativeLeu/uL [facility] UA Auto SS Mucus Auto Ql (U) Negative Normal Negativegr aded/ LPF [facility] UA Auto SS Nitrite Auto test strip Ql (U) Negative Normal Negativemg/dL [facility] UA Auto SS pH (U) 6.5 *NA* (06/11/24 10:51 AM) Invalid Interpretation Code 5.0 - 9.0 [facility] UA Auto SS Protein Ql (U) Negative Normal Negativemg/dL [facility] UA Auto SS RBC Ql (U) 0-3 graded/HPF Normal 0-3graded/HPF [facility] UA Auto SS Specific gravity (U) [Rel density] 1.014 *NA* (06/11/24 10:51 AM) Invalid Interpretation Code 1.005 - 1.030 [facility] UA Auto SS Urobilinogen (U) [Mass/Vol] Negative Normal Negativemg/dL [facility] UA Auto SS WBC Auto (Urine sed) [#/Area] 6-15 graded/HPF Invalid Interpretation Code 0-5graded/HPF [facility] UA Auto SS URINALYSISOrdered By: Toan Santo on 06-11-2024 UA Spec Desc Clean Catch (06/11/24 10:51 AM) Normal [facility] UA Auto SS Work Phone: XR Abdomen 1 Viewon 06-11-20 XR Abdomen 1 View Exam Date/Time: 06/11/2024 11:44 EDT Reason for Exam: Constipation Report IMPRESSION: NONOBSTRUCTIVE BOWEL GAS PATTERN. STOOL THROUGHOUT THE COLON MAY REPRESENT CONSTIPATION. EXAMINATION: XR Abdomen 1 View HISTORY: Constipation. Lower abdominal pain. TECHNIQUE: Frontal view of the abdomen and pelvis COMPARISON: 04/28/2023 FINDINGS: No calcifications identified over the bilateral renal shadows or expected course of the ureters. Pelvic phleboliths are again identified. Nonobstructive bowel gas pattern. Stool is present throughout the colon. No evidence of free air. No acute osseous abnormality. Ordering Provider: Toan Santo FINAL REPORT Dictated: 06/11/2024 12:04 pm Syed Briones DO Signed (Electronic Signature): 06/11/2024 12:04 pm Signed by: Syed Briones DO Transcribed by: VALERIE Technologist: HOLDEN Technical Comments Radiation Dose: Ka,r in mGy = na DAP = na Normal [facility] ED Clinical Summaryon 2023 ED Clinical Summary ED Clinical Summary [address] [address] ED Clinical Summary Person Information Name: SHERIE RIZVI/[place] Age: 23 Years : 2000 Sex: Female Language: Belgian PCP: Jenn Urban MD Marital Status: Single Visit Id: Visit Reason: Jaw pain; Ear pain; EAR PAIN Speciality: Acuity: 4 Enc Type: Emergency Med Service: Emergency Arrival: 05/29/2024 01:47:05 Discharge: 05/29/2024 03:04:59 LOS: 000 01:17 Checkin: 05/29/2024 01:47:05 Checkout: 05/29/2024 03:04:59 Dispo Type: Home (Routine DC) EVENTS: Event Name Event Status Request Date/Time Start Date/Time Complete Date/Time Arrive Complete 05/29/2024 01:47:05 05/29/2024 01:47:05 05/29/2024 01:47:05 Document Home Meds Request 05/29/2024 01:47:05 Triage Complete 05/29/2024 01:47:05 05/29/2024 02:19:49 05/29/2024 02:19:49 Registration Complete 05/29/2024 01:50:19 05/29/2024 01:50:19 05/29/2024 01:50:19 Reg Complete Request 05/29/2024 01:50:19 Reg Bed Request Complete 05/29/2024 01:50:19 05/29/2024 01:50:19 05/29/2024 01:50:19 Bed Assign Complete 05/29/2024 02:20:20 05/29/2024 02:20:20 05/29/2024 02:20:20 Dr Exam Complete 05/29/2024 02:20:20 05/29/2024 02:22:25 05/29/2024 02:22:25 RN Exam Complete 05/29/2024 02:20:20 05/29/2024 02:35:37 05/29/2024 02:35:37 Registration Request 05/29/2024 02:22:25 Meds Admin Complete 05/29/2024 02:42:03 05/29/2024 02:59:35 Discharge Complete 05/29/2024 02:42:48 05/29/2024 03:05:04 05/29/2024 03:05:04 Transfer Complete 05/29/2024 03:05:04 05/29/2024 03:05:04 05/29/2024 03:05:04 ADDRESS: [address] [id number] PHYS DOC NOTES: MEDICAL INFORMATION: Prescriptions Given: Medications to Continue with No Changes Other Medications amoxicillin (amoxicillin 875 mg Tab) 1 Tablets By Mouth every 12 hours for 5 Days. Refills: 0. ciprofloxacin-dexameth asone otic (Ciprodex 0.3%-0.1% Susp-Otic) 4 Drops Otic 2 times a day for 7 Days. BOTH ears shake well before using wash hands before applying. Refills: 0. clonidine (cloNIDine 0.2 mg Tab) 2 Tablets By Mouth once a day (at bedtime). drospirenone-ethinyl estradiol (Vestura 3 mg-0.02 mg oral tablet) methylphenidate (methylphenidate 54 mg/24 hr oral tablet, extended release) 1 Tablets By Mouth once a day (in the morning). sertraline (sertraline 50 mg Tab) 1 Tablets By Mouth every day. PATIENT EDUCATION INFORMATION: Instructions: Otitis Externa Follow up: With: Address: When: Jennkiah Urban [address] [place] [address], [address] [place], [place] [phone] Business (1) In 3 days DIAGNOSIS: Otitis externa of both ears Normal [facility] ED Note-Physicianon 05-29-20 ED Note-Physician ED Note-Physician Basic Information Time Seen: Jose Wilkinson DO 05/29/2024 02:22 Chief Complaint Bilateral ear pain with radiation to jaw and neck and worsening. Seen at urgent care on Monday and started on antibiotics. Motrin not helping with pain. Dark yellow drainage on Monday. History of Present Illness HPI: Patient is a 23-year-old female with past medical history of ADHD who presents the ED for bilateral ear pain. She states that over the weekend she had gone swimming and shortly after developed pain and drainage bilateral ears. She was seen in urgent care on Monday and started on pulse oral amoxicillin as well as Ciprodex topical drops. She states that she is continue to have pain and swelling and does not feel that the drops are penetrating all the way into the ear. ROS: Pertinent review of systems conducted and is negative except as noted above. Physical exam: General: nontoxic appearing and in no distress HEENT: Mucous membranes moist. Middle ears with trace swelling of the ear canal with some purulent drainage. TMs are clear. Neuro: awake and alert Neck: supple, trachea midline Card: Heart regular rate and rhythm no murmur Resp: Lungs clear to auscultation no wheeze or rhonchi Physical Exam Vitals & Measurements T: 36.8 ?C(Oral) HR: 99(Peripheral) RR: 16 BP: 134/86 SpO2: 97% HT: 157.4 cm WT: 66.5 kg BMI: 26.84 Medical Decision Making MEDICAL DECISION MAKING Number and Complexity of Problems Differential Diagnosis: [] [facility] Data External documents reviewed: N/A My EKG interpretation: Noted in chart if applicable My CT interpretation: N/A My X-ray interpretation: Noted in chart if applicable My Ultrasound interpretation: N/A Decision rules/scores evaluated: N/A Discussed with: N/A Treatment and Disposition ED Course: Patient is nontoxic-appearing no distress. She does have an exam concerning for otitis externa. We will switch her eardrops to Polytrim and we will place a wick so that the medicine gets all the way into the ear canal. She continue uxea-anb-eteuzmu pain medications and follow-up with her primary care physician. Shared decision making: As above Code status: N/A Assessment/Plan Otitis externa of both ears (H60.93: Unspecified otitis externa, bilateral) Orders: polymyxin B-trimethoprim ophthalmic, 4 drop(s), Soln-Opth, Ear-Both, Once, Stop date 05/29/24 2:41:00 EDT, STAT, Start date 05/29/24 2:41:00 EDT Disposition Plan Discharge Prescription List Prescriptions No active prescription medications Follow-up With When Contact Information Jenn Urban In 3 days [address] [place] [phone]- Business (1) Additional Instructions: Patient Education Otitis Externa Problem List/Past Medical History Ongoing ADHD - Attention deficit disorder with hyperactivity Dense breasts Family history of breast cancer in female Historical No qualifying data Procedure/Surgical History Denies. Medications Inpatient polymyxin B-trimethoprim Opth Consuelo, 4 drop(s), Ear-Both, Once Home amoxicillin 875 mg Tab, 875 mg= 1 tab(s), Oral, q12hr Ciprodex 0.3%-0.1% Susp-Otic, 4 drop(s), Otic, BID cloNIDine 0.2 mg Tab, 0.4 mg= 2 tab(s), Oral, Once a day (at bedtime) methylphenidate 54 mg/24 hr oral tablet, extended release, 54 mg= 1 tab(s), Oral, qAM sertraline 50 mg Tab, 50 mg= 1 tab(s), Oral, Daily Vestura 3 mg-0.02 mg oral tablet Allergies No Known Allergies Social History Alcohol - Denies Alcohol Use, 05/07/2012 Current, 08/21/2018 Substance Abuse - Denies Substance Abuse, 05/07/2012 Current, 08/21/2018 Tobacco - Denies Tobacco Use, 05/07/2012 Never (less than 100 in lifetime) Tobacco Use:. Never Smokeless Tobacco Use:. Household tobacco concerns: Yes., 05/27/2024 Never (less than 100 in lifetime) Tobacco Use:., 12/01/2023 Family History Breast cancer: Grandparent. Lab Results No qualifying data available. Diagnostic Results No qualifying data available. Normal [facility] Comment on above: Result Comment: Elec tronically Signed By: Jose Wilkinson DO\.br\Date and Time Signed: 05/29/24 02:44 EDT ED Patient Summaryon 024 ED Patient Summary ED Patient Summary [place] [id number] Patient Discharge Instructions Person Information Name: SHERIE RIZVI Age: 23 Years Arrival Date: 05/29/2024 01:47:05 Discharge Diagnosis: Otitis externa of both ears Primary Care Physician: Jenn Urban MD Provider Information Primary Provider: Jose Wilkinson DO Advanced Transportation Program Director:None The exam and treatment you received in the Emergency Department were for an urgent problem and are not intended as complete care. It is important that you follow up with a doctor, nurse practitioner, or physician?s assistant account manager for ongoing care. If your symptoms become worse or you do not improve as expected and you are unable to reach your usual health care provider, you should return to the Emergency Department. We are available 24 hours a day. SHERIE RIZVI has been given the following list of patient education materials, prescriptions and follow-up instructions: Follow-up Instructions: With: Address: When: Jenn Urban [address] [place], [place] [address]., [address] [place] [phone] Business (1) In 3 days In the event that this physician does not participate in your insurance network, please consult with your insurance company to find a nearby participating provider. Patient Education Materials: Otitis Externa A MESSAGE TO ALL PATIENTS REGARDING OPIOIDS PRESCRIPTION OPIOIDS: WHAT YOU NEED TO KNOW Prescription opioids can be used to help relieve bumesmay-ne-xjmkhw pain and are often prescribed following a surgery or injury, or for certain health conditions. These medications can be an important part of the treatment but also come with serious risks. It is important to work with your healthcare provider to make sure you are getting the safest, most effective care. WHAT ARE THE RISKS AND SIDE EFFECTS OF OPIOID USE? Prescription opioids carry serious risks of addiction and overdose, especially with prolonged use. An opioid overdose, often marked by slowed breathing, can cause sudden . The use of prescription opioids can have a number of side effects as well, even when taken as directed: ? Tolerance?meaning you might need to take more of the medication for the same pain relief ? Physical dependence?meaning you have symptoms of withdrawal when a medication is stopped ? Increased sensitivity to pain ? Constipation ? Nausea, vomiting, and dry mouth ? Sleepiness and dizziness ? Confusion ? Depression ? Low levels of testosterone that can result in lower sex drive, energy, and strength ? Itching and sweating RISKS ARE GREATER WITH: ? History of drug misuse, substance use disorder, or overdose ? Mental health conditions (such as depression or anxiety) ? Sleep apnea ? Older age (65 years and older) ? Avoid alcohol while taking prescription opioids. Also, unless specifically advised by your health care provider, medications to avoid include: ? Benzodiazepines (such as Xanax or Valium) ? Muscle relaxants (such as Soma or Flexeril) ? Hypnotics (such as Ambien or Lunesta) ? Other prescription opioids KNOW YOUR OPTIONS Talk to your health care provider about ways to manage your pain that don?t involve prescription opioids. Some of these options may actually work better and have fewer risks and side effects. Options may include: ? Pain relievers such as acetaminophen, ibuprofen, and naproxen ? Some medication that are also used for depression or seizures ? Physical therapy and exercise ? Cognitive behavioral therapy, a psychological, goal-directed approach, in which patients learn how to modify physical, behavioral, and emotional triggers of pain and stress. IF YOU ARE PRESCRIBED OPIOIDS FOR PAIN: ? Never take opioids in greater amounts or more often than prescribed. ? Follow up with your primary health care provider. o Work together to create a plan on how to manage your pain. o Talk about ways to help manage your pain that don?t involve prescription opioids. o Talk about any and all concerns and side effects. ? Help prevent misuse and abuse o Never sell or share prescription opioids. o Never use another person?s prescription opioids. ? Store prescription opioids in a secure place and out of reach of others (this may include visitors, children, friends, and family). ? Safely dispose of unused prescription opioids: Find your community drug take-back program or your pharmacy mail-back program, or flush them down the toilet, following guidance from the Food and Drug Administration (www.fda.gov/Drugs/Res ourcesForYou). ? Visit www.cdc.gov/drugoverdo se to learn about the risks of opioids abuse and overdose. ? If you believe you may be struggling with addiction, tell your health healthcare educator and ask for guidance or call [facility]S National Helpline at 6-910-817-HELP. v Fátima (more content not included)... Normal [facility] Ambulatory Visit Summaryon 0 05-27-2024 Ambulatory Visit Summary Ambulatory Visit Summary BELKYS SHERIE M :2000 Visit Date:05/27/2024 Ambulatory Visit Instructions Your Diagnosis Otitis media of left ear Otitis externa of both ears, Otitis externa of both ears BMI 25.0-25.9,adult Nonsmoker Your Care Team Attending Physician - ADAM MAXWELL, NATA Primary Care Physician - Jenn Urban MD This Is Your Medications List amoxicillin (amoxicillin 875 mg Tab) ciprofloxacin-dexameth asone otic (Ciprodex 0.3%-0.1% Susp-Otic) clonidine (cloNIDine 0.2 mg Tab) drospirenone-ethinyl estradiol (Vestura 3 mg-0.02 mg oral tablet) methylphenidate (methylphenidate 54 mg/24 hr oral tablet, extended release) sertraline (sertraline 50 mg Tab) Procedures Performed Denies. Discharge Vitals Temperature (Oral) 37.0 ?C Heart Rate (Peripheral) 107 Respiratory Rate 16 Blood Pressure 114/82 Height 158 cm Height 62 in Weight 64.8 kg Weight 142.56 lb BMI 25.96 Medications What How Much When Why Instructions New amoxicillin (amoxicillin 875 mg Tab) 1 Tablets By Mouth Every 12 hours Otitis media of left ear Otitis externa of both ears Duration: 5 Days Pickup at [facility]/pharmacy #[id number] New ciprofloxacin-dexameth asone otic (Ciprodex 0.3%-0.1% Susp-Otic) 4 Drops Otic 2 times a day Otitis media of left ear Otitis externa of both ears Duration: 7 Days BOTH ears shake well before using wash hands before applying Pickup at [facility]/pharmacy #[id number] Unchanged clonidine (cloNIDine 0.2 mg Tab) 2 Tablets By Mouth Once a day (at bedtime) Unchanged drospirenone-ethinyl estradiol (Vestura 3 mg-0.02 mg oral tablet) Unchanged methylphenidate (methylphenidate 54 mg/ 24 hr oral tablet, extended release) 1 Tablets By Mouth Once a day (in the morning) Unchanged sertraline (sertraline 50 mg Tab) 1 Tablets By Mouth Every day Pharmacy Information [facility]/pharmacy #[id number]: [address] [place] [address], [place] [id number] [phone] Allergies No Known Allergies Problems Ongoing - Any problem that you are currently receiving treatment for. ADHD - Attention deficit disorder with hyperactivity Dense breasts Family history of breast cancer in female Patient Survey You may receive a survey via text or e-mail asking about your office visit. Please share your experience with us by completing your survey. We appreciate your feedback and thank you for choosing us for your care. Normal [facility] Family Medicine Office/Clini c Noteon 05-27-2024 Family Medicine Office/Clinic Note Family Medicine Office/Clinic Note Chief Complaint bilateral ear pain HPI Staff 23 y/o female presents with complaints of possible bilateral ear infection, she was [place] and had pain prior, but now is having a brown colored discharge coming out of right ear OTC-Tylenol History of Present Illness I have reviewed and verified the staff HPI to be accurate for this encounter. Portions of this record have been created with voice recognition software. Occasional wrong-word or ?yjxgw-k-kzaw? substitutions may have occurred due to the inherent limitations of voice recognition software. 23-year-old female presents with complaint of possible bilateral ear infection. Patient states she already had some ear discomfort but was swimming in [facility] over the weekend and noticed increased pain. She also noted some discolored brown drainage out of her right ear. She has been using Tylenol and ibuprofen without much relief. She denies any fever or chills. She also denies any nasal drainage or cough. She did use some diluted peroxide in her right ear. She did call into work today due to the discomfort. Review of Systems PHQ Score Initial Depression Screen Score: 0 SCORE ROS negative unless otherwise stated in HPI. Physical Exam Vitals & Measurements T: 37.0 ?C(Oral) HR: 107(Peripheral) RR: 16 BP: 114/82 SpO2: 97% HT: 62 in HT: 158 cm WT: 64.8 kg WT: 142.56 lb BMI: 25.96 General: Well developed, well nourished, in no acute distress Eyes: Pupils equal, round, and reactive to light. Conjunctivae and sclerae normal, and extraocular movements intact Ears: not assessed Nose: No deformity, discharge, inflammation, or lesions Mouth: Mucous membranes moist. Normal oropharynx, and posterior pharynx without lesions or exudates. Tongue normal Neck: Palpable anterior cervical nodes bilaterally Lungs: clear to auscultation throughout, no wheezing, no rales. No respiratory distress Cardio: regular rate and rhythm, no murmur tachycardic at 107 Abdomen: not assessed Musculoskeletal: not assessed Extremity: not assessed Neurologic: Grossly normal Skin: not assessed Mental Status: Alert and oriented x3. Normal mood and affect Assessment/Plan Based on history of ear discomfort on top of swimming is likely she does have acute otitis externa. Upon exam of the ears the left ear appears just to have an otitis externa however the right ear drum is red and inflamed so we will treat that with an oral antibiotic. Is possible that the drainage she was receiving back with the peroxide flushes was wax. Will treat her with amoxicillin 875 mg 1 every 12 hours x 5 days as well as Ciprodex drops bilaterally for otitis externa twice daily x 7 days. She may continue Tylenol or ibuprofen for the discomfort or any fever. She does not have improvement of her symptoms in the next 2 to 3 days she should follow-up with her primary care. Patient verbalized understanding and agreement with this plan. 1. Otitis media of left ear (H66.92: Otitis media, unspecified, left ear) Will treat with amoxicillin 875 mg p.o. twice daily x 5 days. Finish course. Fluids/rest, PRN tylenol/ibuprofen for pain and/or fever encouraged. Discussed other cold symptoms remain viral in nature- typical duration 7-14 days. Encouraged to follow up with PCP for recheck in about 2-3 days to ensure infection resolving, especially if symptoms worsening or fevers. Patient and/or parent verbalized understanding of treatment plan. Ordered: amoxicillin, 875 mg = 1 tab(s), Oral, q12hr, X 5 day(s), # 10 tab(s), Refills(s) 0, Pharmacy: [facility]/pharmacy #[id number], 158, cm, 05/27/24 13:27:00 EDT, Height/Length Dosing, 64.8, kg, 05/27/24 13:27:00 EDT, Weight Dosing ciprofloxacin-dexameth asone otic, 4 drop(s), Otic, BID for 7 day(s), 7.5 mL, Refill(s) 0, BOTH ears shake well before using wash hands before applying, [facility]/pharmacy #[id number], 158, cm, 05/27/24 13:27:00 EDT, Height/Length Dosing, 64.8, kg, 05/27/24 13:27:00 EDT, Weight Dosing 2. Otitis externa of both ears, (H60.93: Unspecified otitis externa, bilateral)Otitis externa of both ears Ciprodex otic drops 4 drops in each ear twice a day for 7 days. Ordered: amoxicillin, 875 mg = 1 tab(s), Oral, q12hr, X 5 day(s), # 10 tab(s), Refills(s) 0, Pharmacy: [facility]/pharmacy #[id number], 158, cm, 05/27/24 13:27:00 EDT, Height/Length Dosing, 64.8, kg, 05/27/24 13:27:00 EDT, Weight Dosing ciprofloxacin-dexameth asone otic, 4 drop(s), Otic, BID for 7 day(s), 7.5 mL, Refill(s) 0, BOTH ears shake well before using wash hands before applying, [facility]/pharmacy #[id number], 158, cm, 05/27/24 13:27:00 EDT, Height/Length Dosing, 64.8, kg, 05/27/24 13:27:00 EDT, Weight Dosing BMI 25.0-25.9,adult (Z68.25: Body mass index [BMI] 25.0-25.9, adult) The standard range for ages 18 and older is >=18.5 and < 25 kg/m2. Your BMI today was above this range, this falls in the overweight to obese category and there are medical benefits to weight loss. We can offer counselling, (more content not included)... [facility] Comment on above: Result Comment: Elec tronically Signed By: Severino MARQUES, Lizet\.br\Date and Time Signed: 05/27/24 13:57 EDT Patient Letter [facility] Patient [place] [facility] Patient Letter [facility] [address] [facility] [address] [place] [phone] May 27, 2024 SHERIE RIZVI [address] [place] [address] : 2000 Please excuse SHERIE RIZVI from work . Date and/or Time of Absence: From: 05/27/24 To: 05/27/24 May return to work on: 05/28/24 Restrictions: None Comments: Please excuse due to an acute illness. Provider Signature: SHELLI Chatterjee Nurse Practitioner [facility] [address] [address] [facility] NURSING PROGon 04-01-2024 NURSING PROG HNO ID: [id number] Author: FABIANA GUEVARA RN Service: ? Author Type: Registered Nurse Type: Nursing Progress Note Filed: 04/01/2024 10:37 Note Text: GI Pre-Procedure Spoke with patient: Left message- Attempted to reach the patient at the contact number that they provided [phone] (home) . 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 Failure to have a responsible adult accompany the patient to their procedure appointment prevents the use of sedation or anesthesia for their procedure; and can result in cancellation of the procedure NPO instructions were reviewed. Clear liquids the day before the procedure, stop all liquids 4 hours before the procedure Instructions to contact their primary care provider regarding their medications and which medications to stop in preparation for their procedure Instructions to completely read and follow the written instructions that they recieved regarding their procedure. Number to call with questions or concerns [phone] Number to call to cancel their procedure [phone] Fabiana Guevara RN [facility] 02-13-2024 [facility] Telephone (GASTBD) SHERIE RIZVI ([id number]) 4 F Date Time Provider Department 02/13/24 ABNER ALMAZAN GASTBD During your visit today, we recorded the following information about you: Mirna Melendez 02/13/2024 9:14 AM Signed Sherie is calling Abner Almazan MD today to request order for another colonoscopy , as she was not able to complete the other one. Also asking for different prep, as she is tiny and could not drink all of the liquid required the last time. Please return call once entered. No chief complaint on file. Patient has been identified by name and birthdate. Duration of symptoms: N/A Person calling: self Call patient at: on cell [phone] (home) [phone] (cell) Was an appointment scheduled: No Closing statement: Symptom Call: Thank you for calling [facility], your call is very important. A nurse will call in approximately 2-4 hours during business hours. If this is an emergency, please contact 911. Ines Leal LPN 02/13/2024 9:[address] Almazan patient called into the office today and requesting a new order for a colonoscopy, due to her not being able to complete the last one. Patient also requesting a different prep she states that she could not drink all the liquid due to her being small. Please advise Ines Watts LPN February 13, 2024 9:34 AM Ines Watts LPN 02/16/2024 4:14 PM Signed Nurse called patient no answer message left to call office. Ines Watts LPN February 16, 2024 4:14 PM Allergies As of Date: 02/13/2024 (No Active Allergies) Date Reviewed: 10/23/2023 Reviewed by: Kim Bourne RN - Fully Assessed Reason for Visit: Orders [681] Prescriptions as of 02/19/2024 - peg 3350-Electrolytes (GOLYTELY) 236-22.74-6.74 -5.86 gram suspension Refer to printed patient instructions that will be mailed to you. - Drospirenone-Ethinyl Estradiol (YOLIS, 28,) 3-0.02 mg per tablet Take 1 tablet by mouth once daily. - LINZESS 145 mcg capsule - loratadine (CLARITIN) 10 mg tablet Take 1 tablet by mouth every afternoon. - methylphenidate ER 54 mg biphasic tablet 1 TAB PO DAILY. FILL ON OR AFTER 05-23-23 - sertraline (ZOLOFT) 100 mg tablet Take 50 mg by mouth every afternoon. - cloNIDine HCl (CATAPRES) 0.3 mg tablet Take 0.6 mg by mouth daily at bedtime. Take 0.6 mg by mouth daily at bedtime. - hydrOXYzine HCl (ATARAX) 25 mg tablet Problem List As Of Date: 02/13/2024 (None) Encounter Status:Closed by INES WATTS on 02/16/24 Normal [facility] MRI Breast w/o and w/ Contra Blanche kovacsfei 12-22-2023 MRI Breast w/o and w/ Contrast, Bilat Exam Date/Time: 12/19/2023 15:36 EDT Reason for Exam: Right breast mass findings discordant with imaging previously taken;Other (please specify) Report IMPRESSION: BIRADS 1 NEGATIVE, NORMAL INTERVAL FOLLOW-UP EXAM: MRI Breast w/o and w/ Contrast, Bilat DATE: 12/19/2023 12:46 PM CLINICAL HISTORY: Right breast mass findings discordant with imaging previously taken. COMPARISONS: Bilateral breast ultrasound 10/10/2023. TECHNIQUE: This study was performed on a 1.5 Mony magnet. A dedicated in vivo seven channel breast coil was used. T1 weighted images and fat sat T2 weighted images were initially obtained. Dynamic Breast MR imaging was then performed with fat sat pre and post-T1 weighted images after the patient received 20 cc of MultiHance gadolinium contrast. Multiplanar images of both breasts were displayed. Post-contrast MIP; time-signal intensity curves; angio-maps; and subtraction images were generated at the dedicated breast [employer] workstation FINDINGS: Both breasts are heterogeneously dense with moderate background parenchymal enhancement. There are no suspicious masses, areas of abnormal masslike enhancement, suspicious lymphadenopathy, or other findings of concern identified. CAD analysis was performed and used in the interpretation. Board Certified Radiologists. Accredited by the ACR and FDA. MAMMOGRAPHY IS VERY IMPORTANT TO YOUR HEALTH. THE CURRENT [place] [employer] GUIDELINES RECOMMENDS ANNUAL MAMMOGRAPHY BEGINNING AT AGE 40. THIS FACILITY UTILIZES A REMINDER SYSTEM TO ENSURE ALL PATIENTS RECEIVE REMINDER NOTIFICATIONS AT THE APPROPRIATE TIME BASED ON THE RECOMMENDATIONS OF THIS EXAM. Report \X09\ Ordering Provider: Luís Perla FINAL REPORT Dictated: 12/22/2023 1:03 pm Jean-Pierre Serrano MD Signed (Electronic Signature): 12/22/2023 1:03 pm Signed by: Jean-Pierre Serrano MD Transcribed by: VALERIE Technologist: TESS Assessment: BI-RADS Category 1-Negative Recommendation: Normal interval follow-up Technical Comments [employer] Contrast amount in ml's: 5.5 Normal [facility] Consent for Treatmenton 12-03 Consent for Treatment [id number]#[id number] 0TIFF Normal [facility] RAD - MISCon 12-19-2023 RAD - MISC [id number]#[id number] 0TIFF Normal [facility] RAD - MRI Screening Formon 0 12-19-2023 RAD - MRI Screening Form [id number] 0TIFF Normal [facility] Insurance Correspondenceon 0 12-11-2023 Insurance Correspondence [id number] 0TIFF Normal [facility] General Surgery Office/Clini c Noteon 12-04-2023 General Surgery Office/Clinic Note Chief Complaint [employer] Breast pain HPI Staff Sherie is a 23 y.o. female here for breast lumps Dr. Escalante referring US Breast done 10/10/2023 Today patient is accompanied by Mom. She states she has had symptoms for 2 months. She states she has pain and lumps that seem to be worsening. She has switched to pill form of control. She has menses every two months She has decreased caffeine intake. She is not a smoker. Paternal grandmother breast cancer History of Present Illness Sherie Rizvi is a 23-year-old female referred to us by Dr. Escalante for bilateral breast pain and concern for lumps. She had an ultrasound done of both breasts, which showed dense fibroglandular tissue of the right breast and dense fibroglandular tissue of the left breast with no cyst, mass, or suspicious lesions evident. The patient recently switched from an implanted control device to oral contraceptive pills. This coincides roughly with around the time the pain began. She has not yet had a period since making the transition to OCPs and so is uncertain whether or not the breast pain and lumps change in conjunction with her cycle. She denies any skin or nipple retraction, thickening, or peau d'orange. She also denies any nipple discharge. The patient has a family history of breast cancer in her maternal great grandmother as well as her paternal grandmother. She says she has a few relatives on her mother's side who had a history of uterine and ovarian cancer, but she cannot recall the number exactly. Review of Systems Constitutional: No fever, no sweats, no weight loss. Eyes: No glasses, no blurred vision, no visual loss. ENMT: No dentures, no hoarseness, no swallowing difficulties, no hearing loss, no ear infection(s), no nose bleeds. Cardiovascular: Normal blood pressure, no chest pain, regular heartbeat, no heart murmur. Respiratory: No shortness of breath, no cough, no wheezing, no asthma. Gastrointestinal: No nausea, no vomiting, no diarrhea, no constipation, no blood in stool, no change in bowel habits, no abdominal pain, no hepatitis. Genitourinary: No kidney stones, no urine infection, no difficulty passing urine. Musculoskeletal: No pain, no weakness. Skin: No changing moles, no rash, no skin lumps. Neurologic: No seizures, no epilepsy, no headache. Psychiatric: No emotional, no psychiatric problem. Endocrine: No thyroid, no diabetes. Heme/Lymph: No bleeding problems, no anemia, no blood clots, no transfusions. Allergy/Immunologic: No swollen lymph nodes/glands, no IV drug abuse. Other: Additional ROS info: Except as noted in the above Review of Systems and in the History of Present Illness, all other systems have been reviewed and are negative or noncontributory. Physical Exam Vitals & Measurements HR: 83(Peripheral) BP: 137/75 HT: 62 in HT: 157 cm WT: 58 kg WT: 127.6 lb BMI: 23.53 General: No acute distress Respiratory: Unlabored breathing on room air Cardiac: Regular rate and rhythm Abdomen: Soft nontender nondistended Breast: She has diffusely dense right breast tissue, although a mass may be palpable in the lateral retroareolar region. Left breast exam is also consistent with dense breast tissue, but is otherwise normal with no abnormalities in the nipple areolar complex noted nor any changes or abnormalities of the skin in the breast or dominant mass noted on the left side of the breast. Bilateral axillary exams are normal. Assessment/Plan 1. Family history of breast cancer in female (Z80.3: Family history of malignant neoplasm of breast) Given the patient's family history as well as findings which may be discordant with previously taken ultrasounds, we will obtain a bilateral breast MRI with and without contrast and call with results. 2. Dense breasts (R92.2: Inconclusive mammogram) Portions of this record may have been created with voice recognition artificial intelligence software, specifically [employer], Let[employer] and or 1calendar. Substitutions may have occurred voice recognition and artificial intelligence software. Documentation services were performed after patient or guardian consented to allow [employer] to record this visit. GENARO internal control specialist and provider reviewed before signing. GENARO: Freda Don Follow-up No qualifying data available Problem List/Past Medical History Ongoing ADHD - Attention deficit disorder with hyperactivity Dense breasts Family history of breast cancer in female Historical No qualifying data Procedure/Surgical History Denies. Medications cloNIDine 0.2 mg Tab, 0.4 mg= 2 tab(s), Oral, Once a day (at bedtime) methylphenidate 54 mg/24 hr oral tablet, extended release, 54 mg= 1 tab(s), Oral, qAM sertraline 50 mg Tab, 50 mg= 1 tab(s), Oral, Daily Vestura 3 mg-0.02 mg oral tablet Allergies No Known Allergies Social History Alcohol - Denies Alcohol Use, 05/07/2012 Current, 08/21/2018 Rice (more content not included)... Normal [facility] Comment on above: Result Comment: Elec tronically Signed By: Pan PIERCE, Luís Briggs\.br\Date and Time Signed: 12/04/23 08:32 EDT\.br\Electronically Co-Signed By: Freda Don\.br\Date and Time Co-Signed: 12/01/23 09:58 EDT Ambulatory Visit Summaryon 0 12-01-2023 Ambulatory Visit Summary BELKYSSHEREI Singh :2000 Visit Date:12/01/2023 Ambulatory Visit Instructions Your Diagnosis Family history of breast cancer in female Dense breasts Your Care Team Attending Physician - Pan PIERCE, Luís Briggs Primary Care Physician - Wilmar PIERCE, Jenn Mcnamara This Is Your Medications List clonidine (cloNIDine 0.2 mg Tab) drospirenone-ethinyl estradiol (Vestura 3 mg-0.02 mg oral tablet) methylphenidate (methylphenidate 54 mg/24 hr oral tablet, extended release) sertraline (sertraline 50 mg Tab) Procedures Performed Denies. Discharge Vitals Heart Rate (Peripheral) 83 Blood Pressure 137/75 Height 157 cm Height 62 in Weight 58 kg Weight 127.6 lb BMI 23.53 What to do next You Need to Complete the Following MRI Breast w/o and w/ Contrast, Bilat, 12/01/23, Routine, Order for Future Visit, Transport Mode: Ambulatory, Reason: Other (please specify), Reason: Right breast mass findings discordant with imaging previously taken, No, Yes, Family history of breast cancer in female Normal [facility] Physician Referralon 024 Physician Referral [id number] 0TIFF Normal [facility] CNCOon 10-27-2023 CNCO Letter Text Normal [facility] ANES POSTPROC EVALon 024 ANES POSTPROC EVAL HNO ID: [id number] Author: MARY JANE STEVEN MD Service: ? Author Type: Anesthesiologist Type: Anesthesia Postprocedure Evaluation Filed: 10/23/2023 15:26 Note Text: POST ANESTHESIA EVALUATION NOTE : 2000 Procedure Summary Date: 10/23/23 Room / Location: Gastroenterology Anesthesia Start: 1227 Anesthesia Stop: 1306 Procedures: COLONOSCOPY DIAGNOSTIC EGD - THERAPEUTIC, EUS, OR TUBE INTERVENTIONS Diagnosis: Generalized abdominal pain Other constipation Mesenteric panniculitis (HCC) Esophageal dysphagia (Generalized abdominal pain) (Dysphagia) Scheduled Providers: Gayle Arambula MD; Mary Jane Steven MD Responsible Provider: Mary Jane Steven MD Anesthesia Type: MAC ASA Status: 2 Anesthesia Type: MAC Last Vitals Vitals Value Taken Time BP 114/73 10/23/23 1330 Temp 36 ?C (96.8 ?F) 10/23/23 1306 HR SpO2 62 10/23/23 1330 Resp 16 10/23/23 1330 SpO2 100 % 10/23/23 1330 Post Anesthesia Patient Status Patient Evaluation: PACU. PACU/ICU Patient Condition: stable. Anticipated Disposition: phase 2 then home. Neurological Status: aware and responsive. Pulmonary Status: breathing comfortably on room air Airway Control: returned to baseline unsupported. Cardiovascular Status: stable. Pain Management: clinically adequate Postoperative Hydration: acceptable. Intraoperative Events: no significant anesthesia events Post Operative Nausea/Vomiting Status: no significant post operative nausea or vomiting Recommendation: continue current plan of care. Anesthesia Observations No Documentation SIGNATURE: Mary Jane Steven MD PATIENT NAME: Sherie Belkys DATE: October 23, 2023 TIME: 3:25 PM CSN: [id number] Normal [facility] ANES PRE-OPon 10-23-2023 ANES PRE-OP HNO ID: [id number] Author: MARY JANE STEVEN MD Service: ? Author Type: Anesthesiologist Type: Anesthesia Preprocedure Evaluation Filed: 10/23/2023 12:29 Note Text: ANESTHESIOLOGY DAY OF SURGERY NOTE : 2000 Procedure Information Anesthesia Start Date/Time: 10/23/23 1227 Scheduled providers: Gayle Arambula MD; Mago Urban APRN.HYDRAULIC LIFT OPERATOR; Mary Jane Steven MD Procedures: COLONOSCOPY DIAGNOSTIC EGD - THERAPEUTIC, EUS, OR TUBE INTERVENTIONS Location: Gastroenterology Estimated body mass index is 22.86 kg/m? as calculated from the following: Height as of 08/22/23: 157.5 cm (5' 2.01 ). Weight as of this encounter: 56.7 kg (125 lb). Most recent hematocrit and potassium results: Hematocrit 44.9 01/06/2023 Potassium 4.0 01/06/2023 Relevant Problems No relevant active problems I - PHYSICAL EVALUATION AIRWAY Patient intubated: No. Tracheostomy tube not present Mallampati: II. TM distance: >3 FB. Neck ROM: full ROM without neurological symptoms. Mouth opening: adequate. Short neck: no. Thick neck: no DENTAL Normal dental observations. II - ANESTHESIA PLAN ASA Score: 2 Anesthetic Plan: MAC The patient is not a current smoker. NPO Status: adequate Beta Keely Monitoring Plan Monitoring plan: standard ASA. Post Procedure Analgesic Plan Postoperative analgesic plan: parenteral or oral opioids. Informed Consent Anesthetic risks, benefits, alternatives, personnel and consent discussed: yes. Patient / Responsible Green Party agrees to proceed: yes Patient / Surrogate agrees to blood products: blood products not planned Significant changes in the patient condition since the History and Physical, not otherwise documented in primary service progress note: no. Potential Anesthesia issues that may suggest increased risk of complications or contraindication to planned procedure: none. Vitals Value Taken Time BP 105/60 10/23/23 1044 Pulse 65 10/23/23 1044 Resp 16 10/23/23 1044 Temp 36.1 ?C (97 ?F) 10/23/23 1044 SpO2 100 % 10/23/23 1044 Outpatient Medications as of 10/23/2023 Medication Sig - peg 3350-Electrolytes (GOLYTELY) 236-22.74-6.74 -5.86 gram suspension Refer to printed patient instructions that will be mailed to you. - Drospirenone-Ethinyl Estradiol (YOLIS, 28,) 3-0.02 mg per tablet Take 1 tablet by mouth once daily. - LINZESS 145 mcg capsule (Patient not taking: Reported on 09/08/2023) - loratadine (CLARITIN) 10 mg tablet Take 1 tablet by mouth every afternoon. - methylphenidate ER 54 mg biphasic tablet 1 TAB PO DAILY. FILL ON OR AFTER 05-23-23 - sertraline (ZOLOFT) 100 mg tablet Take 50 mg by mouth every afternoon. - cloNIDine HCl (CATAPRES) 0.3 mg tablet Take 0.6 mg by mouth daily at bedtime. Take 0.6 mg by mouth daily at bedtime. - hydrOXYzine HCl (ATARAX) 25 mg tablet No current facility-administered medications on file as of 10/23/2023. I have interviewed and examined the patient. I have reviewed the medical record and/or the pre-anesthesia evaluation, pertinent labs, and test results. This contains updated information obtained within 48 hours of Surgery/Procedure. SIGNATURE: Mary Jane Steven MD PATIENT NAME: Sherie Rizvi DATE: October 23, 2023 TIME: 12:28 PM CSN: [id number] Normal [facility] Colonoscopyon 10-23-2023 Colonoscopy Q3 Patient Name: Sherie Rizvi Procedure Date: 10/23/2023 12:16 PM Date of : 2000 Admit Type: Outpatient Age: 23 Gender: Female Note Status: Finalized Attending MD: Gayle Arambula MD, [id number] Procedure: Colonoscopy Indications: Generalized abdominal pain Providers: Gayle Arambula MD Patient Profile: Last Colonoscopy: date unknown. Referring Physician: Abner Almazan MD (Referring MD) Medicines: General Anesthesia Complications: No immediate complications. Requesting Provider: Procedure: Pre-Anesthesia Assessment: - ASA Grade Assessment: II - A patient with mild systemic disease. After I obtained informed consent, the scope was passed under direct vision. Throughout the procedure, the patient's blood pressure, pulse, and oxygen saturations were monitored continuously. The Colonoscope was introduced through the anus and advanced to 10 cm into the ileum. The colonoscopy was performed without difficulty. The patient tolerated the procedure well. The quality of the bowel preparation was poor. The rectum was photographed. Moderate Sedation: GEN Anesthesia Findings: The perianal and digital rectal examinations were normal. Copious quantities of semi-solid stool was found in the rectum, in the sigmoid colon and in the descending colon, precluding visualization. Impression: - Preparation of the colon was poor. - Stool in the rectum, in the sigmoid colon and in the descending colon. - No specimens collected. Estimated Blood Loss: Estimated blood loss: none. Recommendation: - Patient has a contact number available for emergencies. The signs and symptoms of potential delayed complications were discussed with the patient. Return to normal activities tomorrow. Written discharge instructions were provided to the patient. - Low fiber diet. - Continue present medications. - Repeat colonoscopy in 1 month for screening purposes. Procedure Code(s): --- Professional --- 18551 Diagnosis Code(s): --- Professional --- R10.84 CPT copyright 2020 [employer]. All rights reserved. Attending Participation: I personally performed the entire procedure. Scope In: 12:46:07 PM Scope Out: 12:48:28 PM MD Gayle Sher MD 10/23/2023 12:54:37 PM This report has been signed electronically by Gayle Arambula MD Number of Addenda: 0 Note Initiated On: 10/23/2023 12:16 PM Normal [facility] EGD Study observation Narrat iveon 10-23-2023 [facility] Flexible sigmoidoscopy study on 10-23-2023 [facility] NURSING PROGon 10-23-2023 NURSING PROG HNO ID: [id number] Author: GUNJAN REID RN Service: Nursing Author Type: Registered Nurse Type: Nursing Progress Note Filed: 10/23/2023 13:30 Note Text: AMBULATORY PATIENT EDUCATION NOTE TOPIC: GI PROCEDURES: Colonoscopy with or without biopsies based on clinical findings Esophagogastroduodenos copy(EGD) with or without biopies based on clinical findings, removal of polyps or lesions READINESS TO LEARN INSTRUCTION PROVIDED TO: Patient and family member COGNITIVE ABILITY: Alert and oriented PTED MOTIVATION TO LEARN: Interested FAMILY SUPPORT: High - Very involved in pt care IPATIENT LEARNS BEST BY: Individual Instruction Written Instruction - Hand-outs Verbal Instruction FACTORS AFFECTING LEARNING: None PHYSICAL LIMITATIONS AFFECTING LEARNING: None LEARNING RESPONSE METHOD OF INSTRUCTION: Individual instruction PATIENT / FAMILY RESPONSE: Verbalizes understanding of: WORSENING CONDITION-Signs and symptoms of a worsening condition that warrant a call to the physician FOLLOW-UP PLAN: Complete - No need for follow-up SUPPLEMENTAL MATERIAL: Procedure Discharge Instructions REFERRAL (RECOMMENDATION): None Electronically Signed By: Gunjan Reid RN Normal [facility] NURSING PROG HNO ID: [id number] Author: ELIZA ACOSTA RN Service: ? Author Type: Registered Nurse Type: Nursing Progress Note Filed: 10/23/2023 10:44 Note Text: PRE OP LEARNING ASSESSMENT PROCEDURE/SURGERY: GI PROCEDURES: Colonoscopy and EGD READINESS TO LEARN COGNITIVE ABILITY: Alert and oriented MOTIVATION TO LEARN: Eager FAMILY SUPPORT: High - Very involved in pt care PATIENT LEARNS BEST BY: Individual Instruction FACTORS AFFECTING LEARNING: None PHYSICAL LIMITATIONS AFFECTING LEARNING: None Electronically Signed By: Eliza Acosta RN In Department: GASTROENTEROLOGY Normal [facility] SURGICAL PATHOLOGYon 024 CASE REPORT Normal [facility] Comment on above: Order Comment: Speci men Type: TISSUE SPECIMENOrdering Facility: [facility] Address: [address] [place] [address] Result Comment: Surg [facility] Pathology Report Case: [id number] Authorizing Provider: Gayle Arambula MD Collected: 10/23/2023 12:37 PM Ordering Location: Gastroenterology Received: 10/23/2023 04:29 PM Pathologist: Carlos Schuster MD Specimens: A) - DUODENUM BIOPSY, Duodenum biopsy r/o celiac disease B) - STOMACH BIOPSY, stomach biopsy r/o H. Pylori C) - ESOPHAGUS LOWER BIOPSY, Lower esophagus biopsy r/o EOE D) - ESOPHAGUS MID BIOPSY, Mid esophagus biopsy r/o EOE Performed By: #### S ####[facility] LABCLIA [id number] [address] STATES OF [place] DIAGNOSIS COMMENT Normal [facility] Comment on above: Order Comment: Speci men Type: TISSUE SPECIMENOrdering Facility: [facility] Address: [address] [place] [address] Result Comment: A. T he finding of patchy intraepithelial lymphocytosis is not specific, and may be present in many conditions such as infection, drug reaction, celiac disease, non-gluten food sensitivity, autoimmune diseases, bacterial overgrowth, morbid obesity, immunodeficiency disorders, inflammatory bowel disease, and change secondary to local inflammation. Clinical correlation is necessary for a definitive diagnosis. B. Immunohistochemistry for gastrin highlights G cells in gastric antral mucosa. Laboratory Developed Test (LDT) Disclaimer: Performance characteristics of immunohistochemical, immunofluorescent and chromogenic in-situ hybridization tests have been determined by the performing laboratory within [facility] Medicine [place] ([facility], [facility], [facility], [facility], [facility], [facility], or [facility]) in a manner consistent with CLIA requirements. One or more of these tests have not been cleared or approved by the FDA. [facility] is regulated under CLIA as qualified to perform high-complexity testing. These tests are used for clinical purposes. They should not be regarded as investigational or for research. Positive and negative controls stain appropriately. Performed By: #### S ####[facility] LABCLIA [id number] [address] [place] FINAL DIAGNOSIS Normal [facility] Comment on above: Order Comment: Speci men Type: TISSUE SPECIMENOrdering Facility: [facility] Address: [address] [place] [address] Result Comment: A. D uodenum, biopsy: - Duodenal mucosa with patchy intraepithelial lymphocytosis. - No evidence of villous blunting. - See comment. B. Stomach, biopsy: - Chronic active antral gastritis. - Immunohistochemical stain for Helicobacter pylori is negative. C, D. Esophagus, lower and mid, biopsy: - Squamous epithelium with no significant diagnostic alteration. - No evidence of intraepithelial eosinophils. Performed By: #### S ####[facility] LABCLIA [id number] [address] OF [facility] FINAL PERFORMING LAB Normal [facility] Comment on above: Order Comment: Speci men Type: TISSUE SPECIMENOrdering Facility: [facility] Address: [address] [place] [address] Result Comment: Diag nostic interpretation performed at [facility], [address] [place] [address] CLIA# [id number] Dead Mail Checker: Patrick Ron M.D. Performed By: #### S ####[facility] LABCLIA [id number] [address] GROSS DESCRIPTION Normal [facility] Comment on above: Order Comment: Speci men Type: TISSUE SPECIMENOrdering Facility: [facility] Address: [address] [place] [address] Result Comment: A. D UODENUM BIOPSY Received in formalin are multiple pieces of chavez, soft tissue aggregating to 1.0 x 0.3 x 0.2 cm. Totally submitted in one cassette. B. STOMACH BIOPSY Received in formalin are multiple pieces of chavez, soft tissue aggregating to 0.8 x 0.3 x 0.2 cm. Totally submitted in one cassette. C. ESOPHAGUS LOWER BIOPSY Received in formalin are multiple pieces of chavez-white, soft tissue aggregating to 0.8 x 0.2 x 0.1 cm. Totally submitted in one cassette. D. ESOPHAGUS MID BIOPSY Received in formalin are multiple pieces of chavez-white, soft tissue aggregating to 1.4 x 0.3 x 0.2 cm. Totally submitted in one cassette. Gross examination performed at [facility], [address] [place] [address] MARK October 23, 2023 8:01 PM Performed By: #### S ####[facility] DELMI [id number] JODYRichard [place] [id number] [place] Allison 10-16-2023 CNPN Telephone (GASTPR) SHERIE RIZVI ([id number]) 4 F Date Time Provider Department 10/16/23 JUAN LUIS ONEIL [facility] During your visit today, we recorded the following information about you: Juan Luis Oneil RN 10/16/2023 12:10 PM Signed Attempted to reach the patient at the contact number that they provided [phone] (home) . 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 Failure to have a responsible adult accompany the patient to their procedure appointment prevents the use of sedation or anesthesia for their procedure; and can result in cancellation of the procedure NPO instructions were reviewed. Clear liquids the day before the procedure, stop all liquids 4 hours before the procedure Instructions to contact their primary care provider regarding their medications and which medications to stop in preparation for their procedure Instructions to completely read and follow the written instructions that they recieved regarding their procedure. Number to call with questions or concerns [phone] Number to call to cancel their procedure [phone] Juan Luis Oneil RN Allergies As of Date: 10/16/2023 (No Active Allergies) Date Reviewed: 09/08/2023 Reviewed by: Javid Dinero MA - Fully Assessed Prescriptions as of 10/16/2023 - peg 3350-Electrolytes (GOLYTELY) 236-22.74-6.74 -5.86 gram suspension Refer to printed patient instructions that will be mailed to you. - Drospirenone-Ethinyl Estradiol (YOLIS, 28,) 3-0.02 mg per tablet Take 1 tablet by mouth once daily. - LINZESS 145 mcg capsule - loratadine (CLARITIN) 10 mg tablet Take 1 tablet by mouth every afternoon. - methylphenidate ER 54 mg biphasic tablet 1 TAB PO DAILY. FILL ON OR AFTER 05-23-23 - sertraline (ZOLOFT) 100 mg tablet Take 50 mg by mouth every afternoon. - cloNIDine HCl (CATAPRES) 0.3 mg tablet Take 0.6 mg by mouth daily at bedtime. Take 0.6 mg by mouth daily at bedtime. - hydrOXYzine HCl (ATARAX) 25 mg tablet Problem List As Of Date: 10/16/2023 (None) Encounter Status:Closed by JUAN LUIS ONEIL on 10/16/23 Normal [facility] Consent for Treatmenton Consent for Treatment [id number] 0TIFF Normal [facility] US Breast Unilateral Lt Comp leteon 10-10-2023 US Breast Unilateral Lt Complete Exam Date/Time: 10/10/2023 14:20 EST Reason for Exam: N63.0 Report IMPRESSION: BI-RADS CATEGORY 1: NEGATIVE. CLINICAL MANAGEMENT OF CLINICALLY PALPABLE FINDINGS IS SUGGESTED. CLINICAL HISTORY: N63.0. COMMENT: An ultrasound was obtained at all clock face positions and in the central/ retroareolar region of the left breast. There are ultrasound findings consistent with dense fibroglandular tissue in the left breast. No mass, no cyst, nor suspicious lesion is evident. An ultrasound was obtained at all clock face positions and in the central/ retroareolar region of the right breast. There are ultrasound findings consistent with dense fibroglandular tissue in the right breast. No mass, no cyst, nor suspicious lesion is evident. Ordering Provider: Yoli Rahman FINAL REPORT Dictated: 10/10/2023 4:18 pm Jose Luis Peguero M.D. Signed (Electronic Signature): 10/10/2023 4:18 pm Signed by: Jose Luis Peguero M.D. Transcribed by: VALERIE Technologist: CARLOS Heard [facility] US Breast Unilateral Rt Comp leteon 10-10-2023 US Breast Unilateral Rt Complete Exam Date/Time: 10/10/2023 14:19 EST Reason for Exam: N63.0 Report PLEASE REFER TO THE ULTRASOUND BREAST UNILATERAL LEFT COMPLETE REPORT. Ordering Provider: Yoli Rahman FINAL REPORT Dictated: 10/10/2023 4:19 pm Jose Luis Peguero M.D. Signed (Electronic Signature): 10/10/2023 4:19 pm Signed by: Jose Luis Peguero M.D. Transcribed by: VALERIE Technologist: CARLOS Heard [facility] Physician Orderon 10-06-2023 Physician Order [id number]#1.0 0TIFF [facility] TSH SerPl-aCncon 09-20-2023 TSH Qn 1.880 m[IU]/L Normal 0.270-4.200 [facility] Comment on above: Order Comment: Speci men Type: BLOOD SPECIMENOrdering Facility: [facility] Address: [address] [place] [address] Result Comment: If t he patient is , TSH reference range varies by gestational period: First Trimester (weeks 9-12): 0.180-2.990 mIU/L Second Trimester: 0.110-3.980 mIU/L Third Trimester: 0.480-4.710 mIU/L Sivakumar Arnett et al. A Practical Approach for the Verifications and Determination of Site- and Trimester-Specific Reference Intervals for Thyroid Function tests in . Thyroid, 2019:29:3:412-420. Negrito Sosa, et al. 2017 Guidelines of the [place] [employer] for the Diagnosis and Management of Thyroid Disease during and the . Thyroid, 2017:27:3:315-389. Performed By: #### 3 016-3 ####[facility] LABCLIA [id number] [place] [address] [place] CNOVon 08-22-2023 CNOV Office Visit (GENBMI ) SHERIE RIZVI ([id number]) 4 F Date Time Provider Department 08/22/23 4:00 PM LEVI JOHNSON During your visit today, we recorded the following information about you: Pulse Blood pressure Weight Height 94/minute 142/88 57.5 kg 1.575 m Levi Johnson MD 08/23/2023 3:50 PM Signed GENERAL SURGERY NEW PATIENT CONSULTATION HISTORY AND PHYSICAL Date: August 22, 2023 Time: 4:18 PM Name: Sherie Rizvi Ms. Rizvi is here today for my opinion regarding recurrent abdominal pain My final recommendation will be communicated back to the requesting physician by way of shared medical record or letter. HPI: Sherie Rizvi is a 23 year old female with intermittent chronic abdominal pain. Patient has been experiencing abdominal pain that comes and goes. No noticeable triggers. Not associated with eating in particular. Feels constipated much of the time. Feels that stool is skinnier in caliber. Also has significant bloating. Pain is lower quadrants, or periumbilical. Pain is sometimes accompanied by flu-like symptoms, where pt states she has general malaise. No other PMH. Does have constipation at baseline PSH: none EtOH: none currently No smoking, vaping, drugs No previous EGD or colonoscopy PAST MEDICAL HISTORY: PAST MEDICAL HISTORY Diagnosis Date Acute alcoholic gastritis without hemorrhage 03/19/2023 PAST SURGICAL HISTORY: PAST SURGICAL HISTORY Procedure Laterality Date COLONOSCOPY SCREENING ~12 years old; inflammation found FAMILY HISTORY: No family history on file. SOCIAL HISTORY: Social History Tobacco Use Smoking status: Never Smokeless tobacco: Never Vaping Use Vaping Use: Never used Substance Use Topics Alcohol use: Not Currently Drug use: Never MEDICATIONS: Prior to Admission Medications: Drospirenone-Ethinyl Estradiol (YOLIS, 28,) 3-0.02 mg per tablet Take 1 tablet by mouth once daily. LINZESS 145 mcg capsule loratadine (CLARITIN) 10 mg tablet Take 1 tablet by mouth every afternoon. methylphenidate ER 54 mg biphasic tablet 1 TAB PO DAILY. FILL ON OR AFTER 05-23-23 cloNIDine HCl (CATAPRES) 0.3 mg tablet Take 0.6 mg by mouth daily at bedtime. Take 0.6 mg by mouth daily at bedtime. hydrOXYzine HCl (ATARAX) 25 mg tablet sertraline (ZOLOFT) 100 mg tablet Take 1 tablet by mouth every afternoon. No current facility-administered medications for this visit. ALLERGIES: ALLERGIES Allergen Reactions Loperamide Rash REVIEW OF SYSTEMS: GENERAL: no major changes in weight NECK: +LN in bneck RESPIRATORY: Negative for cough, wheezing or shortness of breath. CARDIOVASCULAR: Negative for chest pain, leg swelling or palpitations. GI: see HPI : No history of dysuria, hematuria. Haw had kidney stones before MUSCULOSKELETAL: +arthritis SKIN: Negative for lesions, rash, and itching. PSYCH: +medications for sleep ENDOCRINE: no DM, recent steroids PHYSICAL EXAM: BP 142/88 Pulse 94 Ht 157.5 cm (5' 2.01 ) Wt 57.5 kg (126 lb 11.2 oz) BMI 23.17 kg/m? General appearance: AO, NAD Skin: warm Lungs: bilateral chest rise Heart: RRR Abdomen: soft, +bloating, mild epigastric TTP, no guarding on exam Extremities: Normal exam of the extremities Notes reviewed: Kimberlyn Oh CT scans reviewed: mesenteric lymphadenopathy that appears grossly stable across two scans, small lymph nodes overall IMPRESSION: Patient is a 23yo F with no significant PMH who presents for second opinion regarding mesenteric lymphadenopathy and the need for biopsy. I discussed with her that these findings are nonspecific, and surgical biopsy is not indicated as it is unlikely to be diagnostic, especially in the absence of any other GI workup. Importantly, she has multiple GI complaints (primarily chronic constipation and ongoing bloating) that require further workup regardless. PLAN: Referral to GI, consult order placed Patient understands and agrees with plan Levi Johnson MD Advanced Laparoscopic and Bariatric Surgery cc: Referring provider No referring provider defined for this encounter. Medical Decision Making: Problems: Moderate: 1+ chronic illnesses with change Data: Unique source(s) for external note(s) reviewed: 2 Independent interpretation of test from other physician/QHCP Medical Decision Making Level: 4 - Moderate Allergies As of Date: 08/22/2023 Noted Allergy Reaction LOPERAMIDE 08/11/2023 2 - Rash Date Reviewed: 08/22/2023 Reviewed by: Olivia Shearer MA - Fully Assessed Reason for Visit: New Patient [172] Primary Visit Diagnosis:Generalized abdominal pain [R10.84] Order(s):CONSULT TO GASTROENTEROLOGY [1619] Order #: [id number]: 1 FUTURE Prescriptions as of 08/23/2023 - Drospirenone-Ethinyl Estradiol (YOLIS, 28,) 3-0.02 mg per tablet Take 1 tablet by mouth once daily. - LINZESS 145 mcg capsule - l (more content not included)... Normal [facility] C. trachomatis+N. gonorrhoea e DNA JERMAINE+probe Ql (Unsp spec)on 08-11-2023 C. trachomatis rRNA JERMAINE+probe Ql (Unsp spec) Negative Normal Negative for Chlamydia trachomatis by amplificaton [facility] Comment on above: Order Comment: Speci men Type: SWABOrdering Facility: [facility] Address: [address] [place] [address] Performed By: #### 3 6902-5 ####[facility] [id number] [address] [place] N. gonorrhoeae rRNA JERMAINE+probe Ql (Unsp spec) Negative Normal Negative for Neisseria gonorrhoeae by amplification [facility] Comment on above: Order Comment: Speci men Type: SWABOrdering Facility: [facility] Address: [address] [place] [address] Performed By: #### 3 6902-5 ####[facility] LABIA [id number] [place] [address] [place] CNOVon 08-11-2023 CNOV Office Visit (OBEM ) SHERIE RIVZI ([id number]) 4 F Date Time Provider Department 08/11/23 1:30 PM LEONIE TIWARI During your visit today, we recorded the following information about you: Blood pressure Weight 130/98 57.7 kg Leonie Tiwari MD 08/11/2023 6:08 PM Signed Sherie Belkys is a 23 year old female who presents for annual exam and pap smear. HPI: Pt has been on depo-Provera X 5 years. Not seeing any periods. Sexually active. No hx of STDs. She thinks that a CT scan has shown an ovarian cyst, but review of her multiple CT scans does not reveal any cysts. Had one HPV vaccination, but no further doses were given. OB History No obstetric history on file. 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 No pertinent family history. Social History Tobacco Use Smoking status: Never Smokeless tobacco: Never Vaping Use Vaping Use: Never used Substance Use Topics Alcohol use: Not Currently Drug use: Never Current Outpatient Medications Medication Sig Drospirenone-Ethinyl Estradiol (YOLIS, 28,) 3-0.02 mg per tablet Take 1 tablet by mouth once daily. LINZESS 145 mcg capsule loratadine (CLARITIN) 10 mg tablet Take 1 tablet by mouth every afternoon. methylphenidate ER 54 mg biphasic tablet 1 TAB PO DAILY. FILL ON OR AFTER 05-23-23 sertraline (ZOLOFT) 100 mg tablet Take 1 tablet by mouth every afternoon. cloNIDine HCl (CATAPRES) 0.3 mg tablet Take 0.6 mg by mouth daily at bedtime. Take 0.6 mg by mouth daily at bedtime. hydrOXYzine HCl (ATARAX) 25 mg tablet No current facility-administered medications for this visit. Allergies As of Date: 08/11/2023 Allergen Noted Reaction LOPERAMIDE 08/11/2023 Rash Fully Assessed 08/11/2023 REVIEW OF SYSTEMS Abdomen: No bloating, early satiety, indigestion, or increased flatulence. No abdominal pain, nausea, vomiting, diarrhea, or constipation. Bladder: No dysuria, gross hematuria, urinary frequency, urinary urgency, or incontinence. Breast: No breast lumps, nipple d/c, overlying skin changes, redness or skin retraction. Expanded ROS: N/A Allergies and current medication updated:Yes EXAM: BP 130/98 Wt 127 lb 3.3 oz (57.7kg) GENERAL: pleasant, female in no apparent distress HEENT: Normocephalic, atraumatic, mucus membranes moist, and no lesions NECK: Supple, full range of motion, no adenopathy, and thyroid normal DERMATOLOGY: Normal, without lesions, non-icteric, and non-hirsute BREAST: soft, non-tender, symmetric, no dominant mass, normal nipple-areolar complex, no lymphadenopathy, and no nipple discharge CHEST: Normal inspiratory effort ABDOMEN: soft, non-tender, and no masses PELVIC: external genitalia normal, normal Bartholin's glands, urethra, Verlot's glands, no vulvar lesions, no cervical lesions, good vaginal support, physiologic discharge present, normal appearing perineal body and perianal region NEURO: alert and oriented x3,exam grossly non-focal EXTREMITIES: normal ASSESSMENT AND PLAN: Encounter Diagnosis ICD-10-CM 1. Encounter for initial prescription of contraceptive pills Z30.011 Drospirenone-Ethinyl Estradiol (YOLIS, 28,) 3-0.02 mg per tablet 2. HPV vaccine counseling Z71.85 3. Cervical cancer screening Z12.4 PAP TEST 4. Screen for STD (sexually transmitted disease) Z11.3 GONORRHEA/CHLAMYDIA NAAT CANCELED: GONORRHEA/CHLAMYDIA NAAT 1- pap smear done 2- GC/Chlamydia swab done 3- Advised to stop depo-Provera due to its negative effect on bone mass in long-term use. Will start her on Yolis oral contraceptive pills with every two month menstruation. 4- HPV vaccine series initiated. Next in 2 mo and third in 6 months. 5- RTO in 6 mo to follow up on the pill use. I have spent 45 minutes with the patient during history taking, exam, review of chart, documentation in the chart, education, counselling and medical decision making. Leonie Tiwari MD Allergies As of Date: 08/11/2023 Noted Allergy Reaction LOPERAMIDE 08/11/2023 2 - Rash Date Reviewed: 08/11/2023 Reviewed by: Leonie Tiwari MD - Fully Assessed Reason for Visit: Well Woman [1463] Primary Visit Diagnosis:Encounter for initial prescription of contraceptive pills [Z30.011] Other Visit Diagnoses:HPV vaccine counseling [Z71.85] Cervical cancer screening [Z12.4] Screen for STD (sexually transmitted disease) [Z11.3] Order(s):Drospirenone- Ethinyl Estradiol (YOLIS, 28,) 3-0.02 mg per tabletTake 1 ta (more content not included)... Normal [facility] PAP TESTon 08-11-2023 ADEQUACY Normal [facility] Comment on above: Order Comment: Speci men Type: FLUID SPECIMENOrdering Facility: [facility] Address: [address] [place] [address] Result Comment: Sati sfactory for interpretation Excess blood Performed By: #### L [id number] ####[facility] LABCLIA [id number] [place] [address] [place] CASE REPORT Normal [facility] Comment on above: Order Comment: Speci men Type: FLUID SPECIMENOrdering Facility: [facility] Address: [address] [place] [address] Result Comment: Gyne cologic Cytology Report Case: [id number] Authorizing Provider: Leonie Tiwari MD Collected: 08/11/2023 03:24 PM Ordering Location: Obstetrics/Gynecology Received: 08/14/2023 07:54 AM First Screen: Abhishek Lee Tech Specimen: Pap Test, ThinPrep, Cervix Performed By: #### L [id number] ####[facility]CL[facility] [id number] [place] [address] [place] CLINICAL HISTORY, CYTOLOGY, PET TRAINING INSTRUCTOR Routine Exam Normal [facility] Comment on above: Order Comment: Speci men Type: FLUID SPECIMENOrdering Facility: [facility] Address: [address] [place] [address] Performed By: #### L [id number] ####[facility]CLIA [id number] [place] [address] [place] FINAL PERFORMING LAB Normal [facility] Comment on above: Order Comment: Speci men Type: FLUID SPECIMENOrdering Facility: [facility] Address: [address] [place] [address] Result Comment: Tech nical component, tech brazer tester screening performed at [facility], [address] [place] [address] CLIA# [id number] Diagnostic interpretation performed at [facility], [address] [place] [address] CLIA# [id number] Dead Mail Checker: Patrick Ron M.D. Performed By: #### L [id number] ####[facility]CLIA [id number] [place] [address] [place] GROSS DESCRIPTION A. Cervix Normal [facility] Comment on above: Order Comment: Speci men Type: FLUID SPECIMENOrdering Facility: [facility] Address: [address] [place] [address] Result Comment: Glac ial Acetic Acid added. Performed By: #### L [id number] ####[facility]CL[facility] [id number] [place] [address] [place] HPV REFLEX HPV if Atypical Normal [facility] Comment on above: Order Comment: Speci men Type: FLUID SPECIMENOrdering Facility: [facility] Address: [address] [place] [address] Performed By: #### L [id number] ####[facility]CLIA [id number] [place] [address] [place] INTERPRETATION, CYTOLOGY, PET TRAINING INSTRUCTOR Normal [facility] Comment on above: Order Comment: Speci men Type: FLUID SPECIMENOrdering Facility: [facility] Address: [address] [place] [address] Result Comment: Nega tive for intraepithelial lesion or malignancy. Performed By: #### L [id number] ####[facility]CL[facility] [id number] [place] [id number] [place] LMP 08/09/2023 Normal [facility] Comment on above: Order Comment: Speci men Type: FLUID SPECIMENOrdering Facility: [facility] Address: [address] [place] [address] Performed By: #### L [id number] ####[facility]CL[facility] [id number] [place] [address] [place] PAP DISCLAIMER COMMENT The Pap Smear is a screening test for cervical cancer. False negative results occur with all screening tests, emphasizing the need for rescreening at recommended intervals, and clinical correlation. Normal [facility] Comment on above: Order Comment: Speci men Type: FLUID SPECIMENOrdering Facility: [facility] Address: [address] [place] [address] Performed By: #### L [id number] ####[facility] LABIA [id number] [place] [address] [place] PAP ELECTRIC HOIST OPERATOR COMMENT This specimen has be en analyzed by the ThinPrep Imaging System, an automated imaging and review system, which assists the laboratory in evaluating cells on ThinPrep Pap tests. Following automated imaging, selected lamas from every slide are reviewed by a tech brazer tester. Normal [facility] Comment on above: Order Comment: Speci men Type: FLUID SPECIMENOrdering Facility: [facility] Address: [address] [place] [address] Performed By: #### L [id number] ####[facility] LABIA [id number] [place] [address] [place] Physician Referralon 023 Physician Referral [id number] 0TIFF Normal [facility] Physician Referral [id number] 0TIFF Normal [facility] CT Abdomen/Pelvis w/ Contras ton 07-18-2023 CT Abdomen/Pelvis w/ Contrast Exam Date/Time: 07/17/2023 07:38 EST Reason for Exam: K65.9 Peritonitis, unspecified Report IMPRESSION: PREVIOUSLY NOTED RIGHT HYDRONEPHROSIS AND DISTAL RIGHT URETER CALCULUS ARE NO LONGER EVIDENT. RETROPERITONEAL AND MESENTERIC LYMPH NODES NOTED ON PRIOR CT SCANS ARE STABLE IN APPEARANCE. THERE IS A SMALL AMOUNT OF FREE FLUID IN THE PELVIS, THAT IS NONSPECIFIC. THIS COULD BE PHYSIOLOGIC OR COULD BE DUE TO RUPTURED CYST. CLINICAL EVALUATION/MANAGEMENT IS SUGGESTED. CLINICAL HISTORY: K65.9 Peritonitis, unspecified. COMPARISON: 04/12/2023. COMMENT: Images were obtained following the administration of oral and intravenous contrast. The liver, spleen, pancreas, gallbladder, and adrenal glands appear normal. There is a 1 mm nonobstructing calculus in the inferior right kidney. Both kidneys are otherwise unremarkable in appearance. The renal collecting systems are not dilated. No definite ureteral calculus is demonstrated. There are small calcified phleboliths in the pelvis, including calcifications in proximity to distal ureters. There are multiple retroperitoneal and mesenteric lymph nodes, most are small and some are mildly prominent/enlarged, but with the lymph nodes stable in appearance. Mesenteric and retroperitoneal fatty tissues are unremarkable, without evidence of edema or inflammation or infiltration. The abdominal aorta is normal. No aneurysm is noted. Major venous structures are contrast opacified and unremarkable, without evidence of intraluminal filling defect. There is orally administered contrast in the stomach, small bowel, and colon. The bowel loops are not dilated, and there is no evidence of bowel obstruction. The appendix is normal. Fecal material in the colon limits evaluation. There is no evidence of diverticulitis. No abdominal inflammatory complex nor free air is noted. The uterus is retroverted. The urinary bladder is not fully distended with fluid, but is otherwise unremarkable. The uterus is retroverted on this study. There are small follicular ovarian cysts. There is a small amount of free fluid in the pelvis, this is nonspecific, and may be physiologic or due to ruptured cyst. No pelvic lymphadenopathy is evident. There are small nonspecific bilateral inguinal lymph nodes. The bony structures are unremarkable. All CT scans at this facility use dose modulation, iterative reconstruction, and/or Report weight based dosing when appropriate to reduce radiation dose to as low as reasonably achievable. Ordering Provider: PASTOR[place] FINAL REPORT Dictated: 07/18/2023 3:20 pm Jose Luis Peguero M.D. Signed (Electronic Signature): 07/18/2023 3:20 pm Signed by: Jose Luis Peguero M.D. Transcribed by: VALERIE Technologist: ROSA Technical Comments GFR (mL/min/1/73m2) na Contrast: Isovue 300 Contrast amount in ml's: 100 Rectal Contrast Given? No Oral contrast amount in ml's: 900 Normal [facility] Reportability Response - [facility] Health[facility] 07-18-2023 Reportability Response - Public Health {[id number]}XML Normal [facility] Consent for Treatmenton 07-05 Consent for Treatment [id number] 0TIFF Normal [facility] Consent for Treatmenton 07-05 Consent for Treatment [id number] 0TIFF [facility] Discharge Instructionson Discharge Instructions [id number]. 00TIFF [facility] ED Clinical Summaryon 2022 ED Clinical Summary [place] [id number] ED Clinical Summary Person Information Name: SHERIE RIZVI/Josh_Getachew Age: 23 Years : 2000 Sex: Female Language: Belgian PCP: Jenn Urban MD Marital Status: Single Phone: [phone] MRN: [id number] Visit Id: Visit Reason: Ear pain; Headache; Fever; FEVER Speciality: Acuity: 3 Enc Type: Emergency Med Service: Emergency Arrival: 07/14/2023 05:17:39 Discharge: 07/14/2023 06:36:54 LOS: 000 01:19 Checkin: 07/14/2023 05:17:39 Checkout: 07/14/2023 06:36:54 Dispo Type: Home (Routine DC) EVENTS: Event Name Event Status Request Date/Time Start Date/Time Complete Date/Time Arrive Complete 07/14/2023 05:17:39 07/14/2023 05:17:39 07/14/2023 05:17:39 Document Home Meds Request 07/14/2023 05:17:39 Triage Complete 07/14/2023 05:17:39 07/14/2023 05:25:50 07/14/2023 05:25:50 Dr Exam Complete 07/14/2023 05:19:28 07/14/2023 05:19:28 07/14/2023 05:19:28 Registration Complete 07/14/2023 05:19:28 07/14/2023 05:20:12 07/14/2023 05:20:12 Reg Complete Request 07/14/2023 05:20:12 Reg Bed Request Complete 07/14/2023 05:20:12 07/14/2023 05:20:12 07/14/2023 05:20:12 Bed Assign Complete 07/14/2023 05:26:01 07/14/2023 05:26:01 07/14/2023 05:26:01 RN Exam Complete 07/14/2023 05:26:01 07/14/2023 05:39:04 07/14/2023 05:39:04 Pending Labs Complete 07/14/2023 05:31:38 07/14/2023 06:33:16 Lab Complete 07/14/2023 05:31:38 07/14/2023 06:33:16 Swab Complete 07/14/2023 05:31:38 07/14/2023 06:18:48 Meds Admin Complete 07/14/2023 05:35:57 07/14/2023 05:46:28 Pending Labs Complete 07/14/2023 05:52:27 07/14/2023 05:52:27 07/14/2023 05:52:28 Discharge Complete 07/14/2023 06:22:08 07/14/2023 06:37:00 07/14/2023 06:37:00 Transfer Complete 07/14/2023 06:37:00 07/14/2023 06:37:00 07/14/2023 06:37:00 [facility] [id number] PHYS DOC NOTES: MEDICAL INFORMATION: Prescriptions Given: Medications to Continue with No Changes Other Medications clonidine (cloNIDine 0.2 mg Tab) 2 Tablets By Mouth once a day (at bedtime). medroxyPROGESTERone (Depo Provera) methylphenidate (methylphenidate 54 mg/24 hr oral tablet, extended release) 1 Tablets By Mouth once a day (in the morning). sertraline (sertraline 50 mg Tab) 1 Tablets By Mouth every day. PATIENT EDUCATION INFORMATION: Instructions: COVID-19 Follow up: With: Address: When: Jenn Urban [address] [place] [address] Ave[address] [place] [address] Business (1) In 3 days DIAGNOSIS: Acute COVID-19 Normal [facility] ED Note-Physicianon 07-14-20 23 ED Note-Physician Basic Information Time Seen: Minh Jose 07/14/2023 05:19 Chief Complaint Fever, headache, ear pain, swollen lymph nodes since yesterday afternoon. States concern with infection in body. Ibuprofen at 0200 History of Present Illness HPI: Patient is a 23-year-old female with past medical history of ADHD who presents the ED for fever. Patient states that since yesterday afternoon she has had fever and chills. She states that she has had some intermittent headaches as well as feeling of pressure and discomfort in her ears intermittently. She feels like she has some swollen lymph nodes. She denies any sore throat, cough, runny nose. She denies any nausea vomiting or diarrhea. She denies any urinary symptoms. She has been taking ibuprofen every few hours for this. ROS: Pertinent review of systems conducted and is negative except as noted above. Physical exam: General: nontoxic appearing and in no distress HEENT: Mucous membranes moist. Lungs are clear bilaterally. No tonsillar enlargement or exudate. Posterior pharynx is patent. Neuro: awake and alert Neck: supple, trachea midline Card: Heart regular rate and rhythm no murmur Resp: Lungs clear to auscultation no wheeze or rhonchi Ext: No gross deformity or edema Physical Exam Vitals & Measurements T: 37.5 ?C(Oral) HR: 93(Peripheral) RR: 16 BP: 115/82 SpO2: 98% HT: 157 cm WT: 57.5 kg BMI: 23.33 Medical Decision Making MEDICAL DECISION MAKING Number and Complexity of Problems Differential Diagnosis: [] [facility] Data External documents reviewed: N/A My EKG interpretation: Noted in chart if applicable My CT interpretation: N/A My X-ray interpretation: Noted in chart if applicable My Ultrasound interpretation: N/A Decision rules/scores evaluated: N/A Discussed with: N/A Treatment and Disposition ED Course: Out the ED the patient is well-appearing and in no distress. She is afebrile here in the ED. She has had some intermittent ear pressure and intermittent headaches as well as fever and chills. Ears are clear on my examination. We will obtain COVID and flu swab as well as a Monospot. Patient is positive for COVID-19. I discussed this with the patient at bedside. We discussed the plan of discharge with self-isolation and oral Tylenol and NSAIDs as needed. She will continue oral hydration at rest. She will follow-up with her primary care provider. Shared decision making: As above Code status: N/A Assessment/Plan Acute COVID-19 (U07.1: COVID-19) Orders: acetaminophen, 650 mg = 2 tab(s), Tab, Oral, Once, Stop date 07/14/23 5:35:00 EST, STAT, Start date 07/14/23 5:35:00 EST, 07/14/23 5:35:00 EST ondansetron, 4 mg = 1 tab(s), Oral, q8hr, PRN Nausea/Vomiting, # 20 tab(s), Refills(s) 0, Pharmacy: [facility] #[id number], 158, cm, 01/23/23 22:00:00 EDT, Height/Length Dosing, 57, kg, 01/23/23 22:00:00 EDT, Weight Dosing penicillin V potassium, 500 mg = 1 tab(s), Oral, q6hr, # 40 tab(s), Refills(s) 0, Pharmacy: [facility]/pharm[facility] #[id number], 157.5, cm, 09/29/21 1:19:00 EST, Height/Length Dosing, 56.1, kg, 09/29/21 1:19:00 EST, Weight Dosing Extra Green Li Tube Extra Lav Tube Influenza A&B Ag Mononucleosis Screen Rapid COVID Antigen [place] Medications Administered Given acetaminophen 325 mg Tab, 650 mg, Oral Disposition Plan Discharge Prescription List Prescriptions No active prescription medications Follow-up With When Contact Information Jenn Urban In 3 days [address] [facility]. [address] [place] [address]- [facility] (1) Additional Instructions: Patient Education COVID-19 Problem List/Past Medical History Ongoing ADHD - Attention deficit disorder with hyperactivity Historical No qualifying data Procedure/Surgical History Denies. Medications Inpatient No active inpatient medications Home Bentyl 10 mg Cap, 10 mg= 1 cap(s), Oral, QID, PRN clindamycin 300 mg oral cap, 300 mg= 1 cap(s), Oral, q8hr cloNIDine 0.2 mg Tab, 0.4 mg= 2 tab(s), Oral, Once a day (at bedtime) Depo Provera Flomax 0.4 mg Cap, 0.4 mg= 1 cap(s), Oral, Daily ibuprofen 400 mg Tab, 400 mg= 1 tab(s), Oral, q8hr ibuprofen 600 mg Tab, 600 mg= 1 tab(s), Oral, q6hr methylphenidate 54 mg/24 hr oral tablet, extended release, 54 mg= 1 tab(s), Oral, qAM penicillin V potassium 500 mg Tab, 500 mg= 1 tab(s), Oral, q6hr Pepcid 20 mg Tab, 20 mg= 1 tab(s), Oral, Daily polyethylene glycol 3350 Oral Pwdr for Recon, 17 gm, Oral, Daily Vitamin D3 50,000 intl units oral capsule, [address]63 International_Unit= 1 cap(s), Oral, Not taking Zofran ODT 4 mg Tab-Dis, 4 mg= 1 tab(s), Oral, q8hr, PRN Zofran ODT 4 mg Tab-Dis, 4 mg= 1 tab(s), Oral, q8hr, PRN Zofran ODT 4 mg Tab-Dis, 4 mg= 1 tab(s), Oral, q8hr Allergies No Known Allergies Social History Alcohol - Denies Alcohol Use, 05/07/2012 Current, 08/21/2018 Substance Abuse - Denies Substance Abuse, 05/07/2012 Current, 08/21/2018 Tobacco - Denies Tobacco Use, 05/07/2012 Never (less than 100 in lifetim (more content not included)... Normal [facility] Comment on above: Result Comment: Elec tronically Signed By: Jose Wilkinson DO\.br\Date and Time Signed: 07/14/23 06:22 EST ED Patient Summaryon 023 ED Patient Summary [address] [address] Patient Discharge Instructions Person Information Name: SHERIE RIZVI Age: 23 Years Arrival Date: 07/14/2023 05:17:39 Discharge Diagnosis: Acute COVID-19 Primary Care Physician: Jenn Urban MD Provider Information Primary Provider: Jose Wilkinson DO Advanced Transportation Program Director:None The exam and treatment you received in the Emergency Department were for an urgent problem and are not intended as complete care. It is important that you follow up with a doctor, nurse practitioner, or physician?s assistant account manager for ongoing care. If your symptoms become worse or you do not improve as expected and you are unable to reach your usual health care provider, you should return to the Emergency Department. We are available 24 hours a day. SHERIE RIZVI has been given the following list of patient education materials, prescriptions and follow-up instructions: Follow-up Instructions: With: Address: When: Jenn Urban [address] [place] [address] [address] [place] [phone] Business (1) In 3 days In the event that this physician does not participate in your insurance network, please consult with your insurance company to find a nearby participating provider. Patient Education Materials: COVID-19 A MESSAGE TO ALL PATIENTS REGARDING OPIOIDS PRESCRIPTION OPIOIDS: WHAT YOU NEED TO KNOW Prescription opioids can be used to help relieve tqqjpljb-no-bbqxju pain and are often prescribed following a surgery or injury, or for certain health conditions. These medications can be an important part of the treatment but also come with serious risks. It is important to work with your healthcare provider to make sure you are getting the safest, most effective care. WHAT ARE THE RISKS AND SIDE EFFECTS OF OPIOID USE? Prescription opioids carry serious risks of addiction and overdose, especially with prolonged use. An opioid overdose, often marked by slowed breathing, can cause sudden . The use of prescription opioids can have a number of side effects as well, even when taken as directed: ? Tolerance?meaning you might need to take more of the medication for the same pain relief ? Physical dependence?meaning you have symptoms of withdrawal when a medication is stopped ? Increased sensitivity to pain ? Constipation ? Nausea, vomiting, and dry mouth ? Sleepiness and dizziness ? Confusion ? Depression ? Low levels of testosterone that can result in lower sex drive, energy, and strength ? Itching and sweating RISKS ARE GREATER WITH: ? History of drug misuse, substance use disorder, or overdose ? Mental health conditions (such as depression or anxiety) ? Sleep apnea ? Older age (65 years and older) ? Avoid alcohol while taking prescription opioids. Also, unless specifically advised by your health care provider, medications to avoid include: ? Benzodiazepines (such as Xanax or Valium) ? Muscle relaxants (such as Soma or Flexeril) ? Hypnotics (such as Ambien or Lunesta) ? Other prescription opioids KNOW YOUR OPTIONS Talk to your health care provider about ways to manage your pain that don?t involve prescription opioids. Some of these options may actually work better and have fewer risks and side effects. Options may include: ? Pain relievers such as acetaminophen, ibuprofen, and naproxen ? Some medication that are also used for depression or seizures ? Physical therapy and exercise ? Cognitive behavioral therapy, a psychological, goal-directed approach, in which patients learn how to modify physical, behavioral, and emotional triggers of pain and stress. IF YOU ARE PRESCRIBED OPIOIDS FOR PAIN: ? Never take opioids in greater amounts or more often than prescribed. ? Follow up with your primary health care provider. o Work together to create a plan on how to manage your pain. o Talk about ways to help manage your pain that don?t involve prescription opioids. o Talk about any and all concerns and side effects. ? Help prevent misuse and abuse o Never sell or share prescription opioids. o Never use another person?s prescription opioids. ? Store prescription opioids in a secure place and out of reach of others (this may include visitors, children, friends, and family). ? Safely dispose of unused prescription opioids: Find your community drug take-back program or your pharmacy mail-back program, or flush them down the toilet, following guidance from the Food and Drug Administration (www.fda.gov/Drugs/Res ourcesForYou). ? Visit www.cdc.gov/drugoverdo se to learn about the risks of opioids abuse and overdose. ? If you believe you may be struggling with addiction, tell your health healthcare educator and ask for guidance or call [facility]S National Helpline at 2-040-008-PDUK. y Source: Department of Health and [facility] (more content not included)... Normal [facility] Influenza A&B Agon Influenzae A Ag Negative Normal Negative [facility] Comment on above: Performed By: #### 1 [id number], [id number] #### [facility] [address] [place] [address] Influenzae B Ag Negative Normal Negative [facility] Comment on above: Result Comment: Test sensitivity and specificity vary for age group, specimen type, antigen types, and prevalence of disease. Test results must be evaluated in conjunction with other clinical data available to the physician. Individuals who received nasally administered Influenza A vaccine may have positive test results up to 3 days after vaccination. Performed By: #### 1 [id number], [id number] #### [facility] [address] [place] [address] MICRO OTHER TESTSOrdered By: Yessy Guerrero on 07-14-2023 Influenzae A Ag Negative (07/14/23 5:47 AM) Normal Negative [facility] Influenzae B Ag Negative 1 (07/14/23 5:47 AM) Normal Negative [facility] Comment on above: Interpretive Data: T est sensitivity and specificity vary for age group, specimen type, antigen types, and prevalence of disease. Test results must be evaluated in conjunction with other clinical data available to the physician. Individuals who received nasally administered Influenza A vaccine may have positive test results up to 3 days after vaccination. Rapid COV Int NEG Ctl Pass (07/14/23 5:47 AM) Normal [facility] Rapid COV Int POS Ctl Pass (07/14/23 5:47 AM) Normal [facility] SARS-CoV+SARS-CoV-2 (COVID-19) Ag IA.rapid Ql (Resp) Detected 2 *ABN* (07/14/23 5:47 AM) Invalid Interpretation Code Not Detected [facility] Comment on above: Interpretive Data: Orquidea bentley [employer] Veritor System for Rapid Detection of SARS-CoV-2 is a chromatographic digital immunoassay intended for the direct and qualitative detection of SARS-CoV-2 nucleocapsid antigens in nasal swabs from individuals who are suspected of COVID-19 by their healthcare provider within the first five days of the onset of symptoms. Negative results should be treated as presumptive, do not rule out SARS-CoV-2 infection and should not be used as the sole basis for treatment or patient management decisions, including infection control decisions. Negative results should be considered in the context of a patient s recent exposures, history and the presence of clinical signs and symptoms consistent with COVID-19, and confirmed with a molecular assay, if necessary, for patient management. For in vitro diagnostic use. In the [place], only for use under an Emergency Use Authorization. In the [place], this test has not been FDA cleared or approved; this test has been authorized by FDA under an EUA for use by authorized laboratories; use by laboratories certified under the CLIA, 42 U.S.C. 263a, that meet requirements to perform moderate, high, or waived complexity tests and at the Point of Care (POC), i.e., in patient care settings operating under a CLIA Certificate of Waiver, Certificate of Compliance, or Certificate of Accreditation. This test has been authorized only for the detection of proteins from SARS-CoV-2, not for any other viruses or pathogens; and, in the [place], this test is only authorized for the duration of the declaration that circumstances exist justifying the authorization of emergency use of in vitro diagnostics for detection and/or diagnosis of the virus that causes COVID-19 under Section 564(b)(1) of the Act, 21 U.S.C. 360bbb-3(b)(1), unless the authorization is terminated or revoked sooner. [place] Screenon 07-14-2023 Heterophile Ab LA Ql (S) Negative Normal Negative [facility] Comment on above: Performed By: #### 2 [id number] ####[facility] [address] [place] [address] Prescriptions/Work Noteson 1 09-13-2022 Prescriptions/Work Notes [id number]#1. 00TIFF Normal [facility] Rapid COVID Antigen ([facility])on 07-14-2023 Rapid COV Int NEG Ctl Pass Normal [facility] Comment on above: Performed By: #### 1 [id number], [id number] #### [facility] [address] [place] [address] Rapid COV Int POS Ctl Pass Normal [facility] Comment on above: Performed By: #### 1 [id number], [id number] #### [facility] [address] [place] [address] SARS-CoV+SARS-CoV-2 (COVID-19) Ag IA.rapid Ql (Resp) Detected Abnormal Not Detected [facility] Comment on above: Result Comment: The [employer]? System for Rapid Detection of SARS-CoV-2 is a chromatographic digital immunoassay intended for the direct and qualitative detection of SARS-CoV-2 nucleocapsid antigens in nasal swabs from individuals who are suspected of COVID-19 by their healthcare provider within the first five days of the onset of symptoms. Negative results should be treated as presumptive, do not rule out SARS-CoV-2 infection and should not be used as the sole basis for treatment or patient management decisions, including infection control decisions. Negative results should be considered in the context of a patient?s recent exposures, history and the presence of clinical signs and symptoms consistent with COVID-19, and confirmed with a molecular assay, if necessary, for patient management. For in vitro diagnostic use. In the [place], only for use under an Emergency Use Authorization. In the [place], this test has not been FDA cleared or approved; this test has been authorized by FDA under an EUA for use by authorized laboratories; use by laboratories certified under the CLIA, 42 U.S.C. ?263a, that meet requirements to perform moderate, high, or waived complexity tests and at the Point of Care (POC), i.e., in patient care settings operating under a CLIA Certificate of Waiver, Certificate of Compliance, or Certificate of Accreditation. This test has been authorized only for the detection of proteins from SARS-CoV-2, not for any other viruses or pathogens; and, in the [place], this test is only authorized for the duration of the declaration that circumstances exist justifying the authorization of emergency use of in vitro diagnostics for detection and/or diagnosis of the virus that causes COVID-19 under Section 564(b)(1) of the Act, 21 U.S.C. ? 360bbb-3(b)(1), unless the authorization is terminated or revoked sooner. Performed By: #### 1 [id number], [id number] #### [facility] [address] [place] [id number] [facility] Reportability Response - Public Health {[id number]}XML Normal [facility] SEROLOGYOrdered By: Lili Guerrero on 07-14-2023 Heterophile Ab LA Ql (S) Negative (07/14/23 5:46 AM) Normal Negative [facility] Physician Orderon 07-11-2023 Physician Order [id number]#1.0 0TIFF Normal [facility] Insurance Correspondenceon 1 09-09-2022 Insurance Correspondence [id number]#1. 00TIFF Normal [facility] Physician Referralon 023 Physician Referral [id number]#1.0 0TIFF Normal [facility] CHEMISTRYOrdered By: SYSTEM SYSTEM on 04-12-2023 Anion gap [Moles/Vol] 13 mmol/L Normal 6 - 16 mEq/L [facility] Calcium [Mass/Vol] 8.8 mg/dL Low 8.9 - 11. 1 mg/dL [facility] Chloride [Moles/Vol] 106 mmol/L Normal 101 - 1 11 mmol/L [facility] CO2 [Moles/Vol] 24 mmol/L Normal 21 - 31 mmol/L [facility] Creatinine [Mass/Vol] 0.9 mg/dL Normal 0.5 - 1.3 mg/dL [facility] Remisol GFR/1.73 sq M.predicted among non-blacks MDRD (S/P/Bld) [Vol rate/Area] 94 mL/min/1.73 m2 Normal >=59mL/min/1.73 m2 [facility] Chem S Glucose [Mass/Vol] 109 mg/dL Normal 55 - 199 mg/dL [facility] Remisol Potassium [Moles/Vol] 3.6 mmol/L Normal 3.5 - 5.3 mmol/L [facility] Sodium [Moles/Vol] 139 mmol/L Normal 135 - 145 mmol/L [facility] Remisol Urea nitrogen [Mass/Vol] 16 mg/dL Normal 5 - 21 mg/dL [facility] Remisol Urea nitrogen/Creatinine [Mass ratio] 18 mg/mg Normal 10 - 20 [facility] HEMATOLOGYOrdered By: SYSTEM SYSTEM on 04-12-2023 Basophils/100 WBC (Bld) 0.4 % Normal 0.0 - 2.0 % [facility] Basophils/Leukocytes Auto (Bld) [Pure # fraction] 0.0 E9/L Normal 0.0 - 0.2 E9/L [facility] Eosinophils/100 WBC (Bld) 1.2 % Normal 0.0 - 8.0 % [facility] Eosinophils/Leukocyt es Auto (Bld) [Pure # fraction] 0.1 E9/L Normal 0.0 - 0.5 E9/L [facility] Lymphocytes/100 WBC (Bld) 31.9 % Normal 14.0 - 50.0 % [facility] Lymphocytes/Leukocyt es Auto (Bld) [Pure # fraction] 3.0 E9/L Normal 1.0 - 4.0 E9/L [facility] Monocytes/100 WBC (Bld) 5.8 % Normal 4.0 - 14.0 % [facility] Monocytes/Leukocytes Auto (Bld) [Pure # fraction] 0.5 E9/L Normal 0.2 - 1.0 E9/L [facility] Neutrophils/100 WBC (Bld) 60.7 % Normal 36.0 - 75.0 % [facility] Neutrophils/Leukocyt es Auto (Bld) [Pure # fraction] 5.7 E9/L Normal 2.0 - 7.5 E9/L [facility] HEMATOLOGYOrdered By: Shadi Pack on 04-12-2023 Erythrocyte distribution width (RBC) [Ratio] 13.1 % Normal 10.9 - 14.2 % [facility] Hematocrit (Bld) [Volume fraction] 36.0 % Normal 34.0 - 46.0 % [facility] Hemoglobin (Bld) [Mass/Vol] 12.1 g/dL Normal 12.0 - 16.0 gm/dL [facility] MCH (RBC) [Entitic mass] 28.3 pg Normal 27.0 - 34.0 pg [facility] MCHC (RBC) [Mass/Vol] 33.5 g/dL Normal 31.4 - 36.0 gm/dL [facility] MCV (RBC) [Entitic vol] 84.4 fL Normal 80.0 - 100.0 fL [facility] Platelet mean volume (Bld) [Entitic vol] 8.4 fL Normal 6.4 - 10.8 fL [facility] Platelets (Bld) [#/Vol] 271.0 E9/L Normal 150.0 - 500.0 E9/L [facility] RBC (Bld) [#/Vol] 4.3 E12/L Normal 4.3 - 5.9 E12/L [facility] WBC corrected for nucl RBC Auto (Bld) [#/Vol] 9.5 E9/L Normal 4.0 - 11.0 E9/L [facility] SEROLOGYOrdered By: Shadi mccord on 04-12-2023 HCG.beta subunit (U) [Moles/Vol] Negative Normal [facility] URINALYSISOrdered By: Shadi Pack on 04-12-2023 Bacteria LM Ql (Urine sed) Trace /HPF Normal Trace/HPF [facility] Auto SS Bilirubin Ql (U) Negative (04/12/23 2:05 AM) Normal Negative [facility] UA Auto SS Calcium oxalate crystals LM Ql (Urine sed) Present (04/12/23 2:05 AM) Normal [facility] UA Auto SS Clarity (U) Clear (04/12/23 2:05 AM) Normal Clear [facility] UA Auto SS Color (U) Yellow (04/12/23 2:05 AM) Normal Yellow [facility] UA Auto SS Epithelial cells.squamous LM.HPF (Urine sed) [#/Area] 3-4 /HPF Normal 0-2/HPF [facility] UA Auto SS Glucose Test strip (U) [Mass/Vol] Negative (04/12/23 2:05 AM) Normal Negative [facility] UA Auto SS Hemoglobin Ql (U) 2+ *ABN* (04/12/23 2:05 AM) Invalid Interpretation Code Negative [facility] UA Auto SS Ketones (U) [Mass/Vol] Negative (04/12/23 2:05 AM) Normal Negative [facility] UA Auto SS [place].plasma/Lithi um.RBC (Bld) [Mass ratio] 4-20 /HPF Normal 0-3/HPF [facility] UA Auto SS Mucus Ql (Urine sed) Trace (04/12/23 2:05 AM) Normal [facility] UA Auto SS Nitrite Ql (U) Negative (04/12/23 2:05 AM) Normal Negative [facility] UA Auto SS pH (U) 6.0 *NA* (04/12/23 2:05 AM) Invalid Interpretation Code 5.0 - 9.0 [facility] UA Auto SS Protein (U) [Mass/Vol] Trace *ABN* (04/12/23 2:05 AM) Invalid Interpretation Code Negative [facility] UA Auto SS Specific gravity (U) [Rel density] >=1.030 *NA* (04/12/23 2:05 AM) Invalid Interpretation Code 1.005 - 1.030 [facility] Auto SS UA Spec Desc Clean Catch (04/12/23 2:05 AM) Normal [facility] Auto SS Urobilinogen Qn (U) [id number] {Angelic'U}/dL Normal 0.0 - 1.0 EU/dL [facility] UA Auto SS WBC Auto Ql (U) Negative (04/12/23 2:05 AM) Normal Negative [facility] UA Auto SS WBC LM.HPF (Urine sed) [#/Area] 0-5 /HPF Normal 0-5/HPF [facility] UA Auto SS CHEMISTRYOrdered By: SYSTEM SYSTEM on 03-19-2023 Albumin [Mass/Vol] 3.7 g/dL Normal 3.3 - 5.0 gm/dL [facility] Remisol Albumin/Globulin [Mass ratio] 1.1 {ratio} Normal 1.1 - 2.2 [facility] ALP [Catalytic activity/Vol] 98 [iU]/d Normal 21 - 98 Int._Unit/L [facility] ALT No additional P-5'-P [Catalytic activity/Vol] 15 [iU]/d Normal 6 - 46 Int._Unit/L [facility] Anion gap [Moles/Vol] 11 mmol/L Normal 6 - 16 mEq/L [facility] AST [Catalytic activity/Vol] 21 [iU]/d Normal 5 - 43 Int._Unit/L [facility]isol Bilirubin [Mass/Vol] 0.8 mg/dL Normal 0.0 - 1.1 mg/dL [facility] Bilirubin.direct [Mass/Vol] 0.2 mg/dL Normal 0.1 - 0.4 mg/dL [facility]isol Bilirubin.indirect [Mass or moles/Vol] 0.6 mg/dL Normal 0.1 - 0.9 mg/dL [facility] Remisol Calcium [Mass/Vol] 9.1 mg/dL Normal 8.9 - 11. 1 mg/dL [facility] Chloride [Moles/Vol] 105 mmol/L Normal 101 - 1 11 mmol/L [facility] CO2 [Moles/Vol] 26 mmol/L Normal 21 - 31 mmol/L [facility] Rem[facility] Creatinine [Mass/Vol] 0.8 mg/dL Normal 0.5 - 1.3 mg/dL [facility]isol GFR/1.73 sq M.predicted among non-blacks MDRD (S/P/Bld) [Vol rate/Area] 108 mL/min/1.73 m2 Normal >=59mL/min/1.73 m2 FT Chem S Globulin (S) [Mass/Vol] 3.3 g/dL Normal 1.4 - 4.0 gm/dL [facility] Glucose [Mass/Vol] 99 mg/dL Normal 55 - 199 mg/dL [facility] Lipase [Catalytic activity/Vol] 30 U/L Normal 13 - 58 unit/L [facility] Potassium [Moles/Vol] 3.9 mmol/L Normal 3.5 - 5.3 mmol/L [facility] Protein [Mass/Vol] 7.0 g/dL Normal 6.0 - 7.8 gm/dL [facility] Remisol Sodium [Moles/Vol] 138 mmol/L Normal 135 - 145 mmol/L [facility] Urea nitrogen [Mass/Vol] 8 mg/dL Normal 5 - 21 mg/dL [facility] Urea nitrogen/Creatinine [Mass ratio] 10 mg/mg Normal 10 - 20 [facility] HEMATOLOGYOrdered By: SYSTEM SYSTEM on 03-19-2023 Basophils/100 WBC (Bld) 1.3 % Normal 0.0 - 2.0 % [facility] Basophils/Leukocytes Auto (Bld) [Pure # fraction] 0.1 E9/L Normal 0.0 - 0.2 E9/L [facility] Eosinophils/100 WBC (Bld) 1.3 % Normal 0.0 - 8.0 % [facility] Eosinophils/Leukocyt es Auto (Bld) [Pure # fraction] 0.1 E9/L Normal 0.0 - 0.5 E9/L [facility] Lymphocytes/100 WBC (Bld) 37.9 % Normal 14.0 - 50.0 % [facility] Lymphocytes/Leukocyt es Auto (Bld) [Pure # fraction] 3.2 E9/L Normal 1.0 - 4.0 E9/L [facility] Monocytes/100 WBC (Bld) 6.3 % Normal 4.0 - 14.0 % [facility] Monocytes/Leukocytes Auto (Bld) [Pure # fraction] 0.5 E9/L Normal 0.2 - 1.0 E9/L [facility] Neutrophils/100 WBC (Bld) 53.2 % Normal 36.0 - 75.0 % [facility] Neutrophils/Leukocyt es Auto (Bld) [Pure # fraction] 4.4 E9/L Normal 2.0 - 7.5 E9/L [facility] HEMATOLOGYOrdered By: Yuliet Marcos on 03-19-2023 Erythrocyte distribution width (RBC) [Ratio] 13.6 % Normal 10.9 - 14.2 % [facility] Hematocrit (Bld) [Volume fraction] 43.9 % Normal 34.0 - 46.0 % [facility] Hemoglobin (Bld) [Mass/Vol] 14.7 g/dL Normal 12.0 - 16.0 gm/dL [facility] MCH (RBC) [Entitic mass] 29.3 pg Normal 27.0 - 34.0 pg [facility] MCHC (RBC) [Mass/Vol] 33.6 g/dL Normal 31.4 - 36.0 gm/dL [facility] MCV (RBC) [Entitic vol] 87.3 fL Normal 80.0 - 100.0 fL [facility] Platelet mean volume (Bld) [Entitic vol] 8.4 fL Normal 6.4 - 10.8 fL [facility] Platelets (Bld) [#/Vol] 263.0 E9/L Normal 150.0 - 500.0 E9/L [facility] RBC (Bld) [#/Vol] 5.0 E12/L Normal 4.3 - 5.9 E12/L [facility] WBC corrected for nucl RBC Auto (Bld) [#/Vol] 8.3 E9/L Normal 4.0 - 11.0 E9/L [facility] SEROLOGYOrdered By: Lili Guerrero on 03-19-2023 Beta hCG Ql Negative (03/19/23 7:08 AM) Normal [facility] SEROLOGYOrdered By: Eddi null on 11-11-2022 HCG.beta subunit (U) [Moles/Vol] Negative Normal [facility] URINALYSISOrdered By: Eddi snowden on 11-11-2022 Bacteria LM Ql (Urine sed) 1+ /HPF Invalid Interpretation Code Trace/HPF [facility] UA Auto SS Bilirubin Ql (U) Negative (11/11/22 4:12 PM) Normal Negative [facility] UA Auto SS Clarity (U) Clear (11/11/22 4:12 PM) Normal Clear [facility] UA Auto SS Color (U) Yellow (11/11/22 4:12 PM) Normal Yellow [facility] UA Auto SS Crystals LM Ql (Urine sed) Present (11/11/22 4:12 PM) Normal [facility] UA Auto SS Epithelial cells.squamous LM.HPF (Urine sed) [#/Area] 5-8 /HPF Normal 0-2/HPF [facility] UA Auto SS Glucose Test strip (U) [Mass/Vol] Negative (11/11/22 4:12 PM) Normal Negative [facility] UA Auto SS Hemoglobin Ql (U) Trace *ABN* (11/11/22 4:12 PM) Invalid Interpretation Code Negative [facility] UA Auto SS Ketones (U) [Mass/Vol] Negative (11/11/22 4:12 PM) Normal Negative [facility] UA Auto SS [place].plasma/Lith[place] um.RBC (Bld) [Mass ratio] 0-3 /HPF Normal 0-3/HPF [facility] UA Auto SS Mucus Ql (Urine sed) Trace (11/11/22 4:12 PM) Normal [facility] UA Auto SS Nitrite Ql (U) Negative (11/11/22 4:12 PM) Normal Negative [facility] UA Auto SS pH (U) 6.0 *NA* (11/11/22 4:12 PM) Invalid Interpretation Code 5.0 - 9.0 [facility] UA Auto SS Protein (U) [Mass/Vol] Negative (11/11/22 4:12 PM) Normal Negative [facility] UA Auto SS Specific gravity (U) [Rel density] 1.015 *NA* (11/11/22 4:12 PM) Invalid Interpretation Code 1.005 - 1.030 [facility] UA Auto SS UA Spec Desc Clean Catch (11/11/22 4:12 PM) Normal [facility] UA Auto SS Urobilinogen Qn (U) 0.7360620 {Angelic'U}/dL Normal 0.0 - 1.0 EU/dL [facility] UA Auto SS WBC Auto Ql (U) Negative (11/11/22 4:12 PM) Normal Negative [facility] UA Auto SS WBC LM.HPF (Urine sed) [#/Area] 6-15 /HPF Invalid Interpretation Code 0-5/HPF [facility] UA Auto SS CARDIAC MARTELL ADMITon 023 CK [Catalytic activity/Vol] 88 U/L Normal 26-[address] [facility] Comment on above: Performed By: #### C KATRIN DEVLIN #### [facility] [address] [place], [place] [address] Dr. Diandra Mays CK.MB [Mass/Vol] ng/mL Normal <=3.60 [facility] Comment on above: Performed By: #### C KATRIN DEVLIN #### [facility] [address] [place] [address] Dr. Diandra Mays HSTROP <4.0 Normal 4.0-51.[address] [facility] Comment on above: Result Comment: CUT- OFF POINTS HAVE BEEN ESTABLISHED BASED ON THE FOURTH UNIVERSAL DEFINITIONS OF MYOCARDIAL INFARCTION. THE UPPER REFERENCE LIMIT (URL) OF TROPONIN, DEFINED THE 99TH PERCENTILE OF cTnI DISTRIBUTION IN A REFERENCE POPULATION, HAS BEEN CONFIRMED THE DECISION THRESHOLD FOR NC DIAGNOSIS. Performed By: #### C KATRIN DEVLIN #### [facility] [address] [place] [address] Dr. Diandra Mays ASTRID 21 ng/mL Normal 9-[address] [facility] Comment on above: Performed By: #### C KATRIN DEVLIN #### [facility] [address] [place] [address] Dr. Diandra Mays CBC AUTO DIFFon 10-05-2022 BASO # 0.1 103/ul Normal 0.0-0.1 [facility] Comment on above: Performed By: #### C BC #### [facility] [address] [place] [address] Dr. Diandra Mays Basophils/100 WBC (Bld) 0.6 % Normal 0.2-2.0 [facility] Comment on above: Performed By: #### C BC #### [facility] [address] [place] [address] Dr. Diandra Mays EO # 0.2 103/ul Normal 0.0-0.7 [facility] Comment on above: Performed By: #### C BC #### [facility] [address] [place] [address] Dr. Diandra Mays Eosinophils/100 WBC (Bld) 1.8 % Normal 0.9-7.[address] [facility] Comment on above: Performed By: #### C BC #### [facility] [address] [place] [address] Dr. Diandra Mays Erythrocyte distribution width (RBC) [Ratio] 14.4 % Normal 11.0-15.0 [facility] Comment on above: Performed By: #### C BC #### [facility] [address] [place] [address] Dr. Diandra Mays Hematocrit (Bld) [Volume fraction] 45.3 % Normal 36.0-48.0 [facility] Comment on above: Performed By: #### C BC #### [facility] [address] [place] [address] Dr. Diandra Mays Hemoglobin (Bld) [Mass/Vol] 14.8 g/dL Normal 12.0-16.0 [facility] Comment on above: Performed By: #### C BC #### [facility] [address] [place] [address] Dr. Diandra Mays IG # 0.03 10e3/ul Normal 0.00-0.03 [facility] Comment on above: Performed By: #### C BC #### [facility] [address] [place] [address] Dr. Diandra Mays IG % 0.3 % Normal 0.0-0.5 [facility] Comment on above: Performed By: #### C BC #### [facility] [address] [place] [address] Dr. Diandra Mays LYMPH # 3.8 103/ul Normal 1.2-3.8 [facility] Comment on above: Performed By: #### C BC #### [facility] [address] [place] [address] Dr. Diandra Mays Lymphocytes/100 WBC (Bld) 33.8 % Normal 20.5-60.0 [facility] Comment on above: Performed By: #### C BC #### [facility] [address] [place] [address] Dr. Diandra Mays MANUAL DIFF REQ NO Normal [facility] Comment on above: Performed By: #### C BC #### [facility] [address] [place] [address] Dr. Diandra Mays MCH (RBC) [Entitic mass] 29.4 pg Normal 26.7-34.0 [facility] Comment on above: Performed By: #### C BC #### [facility] [address] [place] [address] Dr. Diandra Mays MCHC (RBC) [Mass/Vol] 32.7 g/dL Normal 29.9-35.2 [facility] Comment on above: Performed By: #### C BC #### [facility] [address] [place] [address] Dr. Diandra Mays MCV (RBC) [Entitic vol] 90.1 fL Normal 81.0-99.0 [facility] Comment on above: Performed By: #### C BC #### [facility] [address] [place] [address] Dr. Diandra Mays MONO # 0.9 103/ul Critically high 0.3-0.8 [facility] Comment on above: Performed By: #### C BC #### [facility] [address] [place] [address] Dr. Diandra Mays Monocytes/100 WBC (Bld) 8.1 % Normal 1.7-12.0 [facility] Comment on above: Performed By: #### C BC #### [facility] [address] [place] [address] Dr. Diandra Mays NEUT # 6.2 103/ul Normal 1.4-6.5 [facility] Comment on above: Performed By: #### C BC #### [facility] [address] [place] [address] Dr. Diandra Mays Neutrophils/100 WBC (Bld) 55.4 % Normal 43.0-75.0 [facility] Comment on above: Performed By: #### C BC #### [facility] [address] [place] [address] Dr. Diandra Mays Platelet mean volume (Bld) [Entitic vol] 10.1 fL Normal 9.5-13.[address] [facility] Comment on above: Performed By: #### C BC #### [facility] [address] [place] [address] Dr. Diandra Mays PLT 331 103/ul Normal 150-[address] [facility] Comment on above: Performed By: #### C BC #### [facility] [address] [place] [address] Dr. Diandra Mays RBC 5.03 106/ul Normal 4.20-5.[address] [facility] Comment on above: Performed By: #### C BC #### [facility] [address] [place] [address] [address] Diandra Mays WBC 11.1 103/ul Critically high 4.0-11.0 [facility] Comment on above: Performed By: #### C BC #### [facility] [address] [place] [address] [address] Diandra Mays Covid-19 PCR ([facility])on SARS-CoV-2 (COVID-19) RNA JERMAINE+probe Ql (Unsp spec) Not detected Normal NOT DETECTED [facility] Comment on above: Result Comment: This test is not yet approved or cleared by the [place] FDA. When there are no FDA-approved or cleared tests available, and other criteria are met, FDA can make tests available under an emergency access mechanism called an Emergency Use Authorization (EUA). The EUA for this test is supported by the Manager Implementation of Health and Human Service's (HHS's) declaration that circumstances exist to justify the emergency use of in vitro diagnostics for the detection and/or diagnosis of the virus that causes COVID-19. This EUA will remain in effect (meaning this test can be used) for the duration of the COVID-19 declaration justifying emergency of IVDs, unless it is terminated or revoked by FDA (after which the test may no longer be used). When diagnostic testing is negative, the possibility of a false negative should be considered in the context of a patient's recent exposures and the presence of clinical signs and symptoms consistent with SARS-CoV-2. Performed By: #### I NFLUAB #### [facility] [address] [place], [place] [id number] Dr. Diandra Mays ER URINE PROFILEon 3 Bilirubin Ql (U) Negative Normal NEGATIVE [facility] Comment on above: Performed By: #### P MICHAEL CANNON UMICRO #### [facility] [address] [place] [address] [address] [address] Diandra Mays Clarity (U) CLEAR Normal CLEAR [facility] Comment on above: Performed By: #### P MICHAEL CANNON UMICRO #### [facility] [address] [place] [address] [address] Diandra Mays Color (U) YELLOW Normal YELLOW [facility] Comment on above: Performed By: #### P REGU, ERUR, UMICRO #### [facility] [address] [place] [address] [address] Diandra ROWELL A micrscopic examination will be performed if indicated. Normal [facility] Comment on above: Performed By: #### P REGU, ERUR, UMICRO #### [facility] [address] [place] [address] [address] Diandra Mays Glucose Ql (U) Negative Normal NEGATIVE [facility] Comment on above: Performed By: #### P REGU, ERUR, UMICRO #### [facility] [address] [place] [address] [address] Diandra Mays Hemoglobin Ql (U) LARGE Abnormal NEGATIVE [facility] Comment on above: Performed By: #### P REGU, ERUR, UMICRO #### [facility] [address] [place] [address] [address] Diandra Mays Ketones Ql (U) Negative Normal NEGATIVE [facility] Comment on above: Performed By: #### P REGU, ERUR, UMICRO #### [facility] [address] [place] [address] [address] Diandra Mays LEUKOCYTES Negative Normal NEGATIVE [facility] Comment on above: Performed By: #### P REGU, ERUR, UMICRO #### [facility] [address] [place] [place] [address] [address] Diandra Mays Nitrite Ql (U) Negative Normal NEGATIVE [facility] Comment on above: Performed By: #### P REGU, ERUR, UMICRO #### [facility] [address] [place] [address] [address] Diandra Mays pH (U) 6.0 [pH] Normal 5-[address] [facility] Comment on above: Performed By: #### P REGU, ERUR, UMICRO #### [facility] [address] [place] [address] [address] Diandra Mays SPEC GRAVITY >=1.030 Abnormal 1.005-<=1.025 [facility] Comment on above: Performed By: #### P MICHAEL CANNON UMICRO #### [facility] [address] [place] [address] Dr. Diandra Mays UA PROTEIN Negative Normal NEGATIVE/ TRACE [facility] Comment on above: Performed By: #### MICHAEL BIANCHI UMICRO #### [facility] [address] [place] [address] Dr. Diandra Mays UR MICRO IND INDICATED Normal [facility] Comment on above: Performed By: #### P MICHAEL CANNON UMICRO #### [facility] [address] [place] [address] Dr. Diandra Mays Urobilinogen Qn (U) 1.0 {Angelic'U}/dL Normal 0.2 - 1. 0 [facility] Comment on above: Performed By: #### MICHAEL BIANCHI UMICRO #### [facility] [address] [place] [address] Dr. Diandra Mays INFLUENZA A AND B AGon 10-05 INFLUENZA A AG Negative Normal NEGATIVE SEE COMMENT [facility] Comment on above: Performed By: #### I NFLUAB #### [facility] [address] [place] [address] Dr. Diandra Mays INFLUENZA B AG Negative Normal NEGATIVE SEE COMMENT [facility] Comment on above: Performed By: #### I NFLUAB #### [facility] [address] [place] [address] Dr. Diandra Mays URon 10-05-2022 , QUAL Negative Normal NEGATIVE [facility] Comment on above: Performed By: #### P MICHAEL CANNON UMICRO #### [facility] [address] [place] [address] Dr. Diandra Mays PROF 14(COMP METB)on 023 Albumin [Mass/Vol] 3.9 g/dL Normal 3.4-5.0 [facility] Comment on above: Performed By: #### C MP, CMADM #### [facility] [address] [place] [address] [address] Diandra Mays Albumin/Globulin [Mass ratio] 1.1 {ratio} Normal [facility] Comment on above: Performed By: #### C MP, CMADM #### [facility] [address] [place] [address] [address] Diandra Mays ALP [Catalytic activity/Vol] 86 U/L Normal 46-116 [facility] Comment on above: Performed By: #### C MP, CMADM #### [facility] [address] [place] [address] [address] Diandra Mays ALT [Catalytic activity/Vol] 14 U/L Normal 14-59 [facility] Comment on above: Performed By: #### C CLAUS, CMADM #### [facility] [address] [place] [address] [address] Diandra Mays Anion gap [Moles/Vol] 13.1 mmol/L Normal [facility] Comment on above: Performed By: #### C CLAUS, CMADM #### [facility] [address] [place] [address] [address] Diandra Mays AST [Catalytic activity/Vol] 18 U/L Normal 15-37 [facility] Comment on above: Performed By: #### C CLAUS, CMADM #### [facility] [address] [place] [address] [address] Diandra Mays Bilirubin [Mass/Vol] 1.0 mg/dL Normal 0.2-1.0 [facility] Comment on above: Performed By: #### C CLAUS, CMADM #### [facility] [address] [place] [place] [address] [address] Diandra Mays Calcium [Mass/Vol] 9.1 mg/dL Normal 8.5-10.1 [facility] Comment on above: Performed By: #### C CLAUS, CMADM #### [facility] [address] [place] [place] [address] [address] Diandar Mays Chloride [Moles/Vol] 103 mmol/L Normal 98-107 [facility] Comment on above: Performed By: #### C CLAUS, CMADM #### [facility] [address] [place] [address] [address] Diandra Mays CO2 [Moles/Vol] 26.3 mmol/L Normal 21.0-32.0 [facility] Comment on above: Performed By: #### C MP, CMADM #### [facility] [address] [place] [address] [address] Diandra Mays Creatinine [Mass/Vol] 0.74 mg/dL Normal 0.55-1.02 [facility] Comment on above: Performed By: #### C MP, CMADM #### [facility] [address] [place] [address] [address] Diandra Mays EGFR-AF JAMAICAN >60 Normal >=60 [facility] Comment on above: Performed By: #### C MP, CMADM #### [facility] [address] [place] [address] [address] Diandra Mays EGFR-NON AF J[place]ICAN >60 Normal >=60 [facility] Comment on above: Performed By: #### C MP, CMADM #### [facility] [address] [place] [address] [address] Diandra Mays Globulin (S) [Mass/Vol] 3.4 g/dL Normal [facility] Comment on above: Performed By: #### C MP, CMADM #### [facility] [address] [place] [address] [address] Diandra Mays Glucose [Mass/Vol] 91 mg/dL Normal 74-106 [facility] Comment on above: Performed By: #### C MP, CMADM #### [facility] [address] [place] [address] [address] Diandra Mays Potassium [Moles/Vol] 3.4 mmol/L Critically low 3.5-5.[address] [facility] Comment on above: Performed By: #### C MP, CMADM #### [facility] [address] [place] [address] [address] Diandra Mays Protein [Mass/Vol] 7.3 g/dL Normal 6.4-8.2 [facility] Comment on above: Performed By: #### C CLAUS, CMADM #### [facility] [address] [place] [address] [address] Diandra Mays Sodium [Moles/Vol] 139 mmol/L Normal 136-145 [facility] Comment on above: Performed By: #### C MP, CMADM #### [facility] [address] [place] [place] [address] [address] Diandra Mays Urea nitrogen [Mass/Vol] 13.0 mg/dL Normal 7.0-18.0 [facility] Comment on above: Performed By: #### C CLAUS, CMADM #### [facility] [address] [place] [address] [address] Diandra Mays Urea nitrogen/Creatinine [Mass ratio] 17.6 mg/mg Normal [facility] Comment on above: Performed By: #### C CLAUS, CMADM #### [facility] [address] [place] [address] Dr. Diandra Mays URINE MICROSCOPIC ONLYon BACTERIA NONE SEEN Normal NONE SEEN [facility] Comment on above: Performed By: #### P REGU, ERUR, UMICRO #### [facility] [address] [place] [address] [address] Diandra Mays Bacteria identified Cx Nom (U) NOT INDICATED Normal [facility] Comment on above: Performed By: #### P REGU, ERUR, UMICRO #### [facility] [address] [place] [address] [address] Diandra Mays CAST NONE SEEN Normal NONE SEEN [facility] Comment on above: Performed By: #### P REGU, ERUR, UMICRO #### [facility] [address] [place] [address] [address] Diandra Mays Crystals LM Nom (Urine sed) NONE SEEN Normal NONE SEEN [facility] Comment on above: Performed By: #### P REGU, ERUR, UMICRO #### [facility] [address] [place] [address] [address] Diandra Mays Epithelial cells LM Ql (Urine sed) FEW Abnormal NONE SEEN /RARE [facility] Comment on above: Performed By: #### P REGU, ERUR, UMICRO #### [facility] [address] [place] [address] [address] Diandra Mays MUCOUS NONE SEEN Normal NONE SEEN [facility] Comment on above: Performed By: #### P REGU, ERUR, UMICRO #### [facility] [address] [place] [address] [address] Diandra Mays RBC 20-50 Abnormal 0-[address] [facility] Comment on above: Performed By: #### P REGU, ERUR, UMICRO #### [facility] [address] [place] [address] [address] Diandra Mays WBC 2-5 Abnormal NONE SEEN [facility] Comment on above: Performed By: #### P REGU, ERUR, UMICRO #### [facility] [address] [place] [address] [address] Diandra Mays STREPT SCREENon 08-14-2022 STREP SCREEN A Positive Abnormal NEGATIVE [facility] Comment on above: Performed By: #### S SCRN #### [facility] [address] [place] [address] [address] Diandra [facility]on SARS-CoV-2 (COVID-19) RNA JERMAINE+probe Ql (Unsp spec) Not detected Normal NOT DETECTED [facility] Comment on above: Result Comment: When diagnostic testing is negative, the possibility of a false negative should be considered in the context of a patient's recent exposures and the presence of clinical signs and symptoms consistent with SARS-CoV-2. This test is not yet approved or cleared by the [place] FDA. When there are no FDA-approved or cleared tests available, and other criteria are met, FDA can make tests available under an emergency access mechanism called an Emergency Use Authorization (EUA). The EUA for this test is supported by the Manager Implementation of Health and Human Service's declaration that circumstances exist to justify the emergency use of in vitro diagnostics for the detection and/or diagnosis of the virus that causes COVID-19. This EUA will remain in effect for the duration of the COVID-19 declaration justifying emergency of IVDs, unless it is terminated or revoked by the FDA (after which the test may no longer be used). Performed By: #### C VDTB #### [facility] [address] [place] [address] Dr. Diandra Mays INFLUENZA A AND B AGon 08-08 INFLUBNEG SEE BELOW Normal [facility] Comment on above: Result Comment: Nega tive for Flu B protein antigen. Infection due to Flu B cannot be ruled out. Flu B antigen in the sample may be below the detection limit of the test. Performed By: #### I NFLUAB #### [facility] [address] [place] [address] Dr. Diandra Mays INFLUENZA A AG Positive Abnormal NEGATIVE SEE COMMENT [facility] Comment on above: Performed By: #### I NFLUAB #### [facility] [address] [place] [address] Dr. Diandra Mays INFLUENZA B AG Negative Normal NEGATIVE SEE COMMENT [facility] Comment on above: Performed By: #### I NFLUAB #### [facility] [address] [place] [address] Dr. Diandra Mays INFLUPOS SEE BELOW Normal [facility] Comment on above: Result Comment: NOTE : Live attenuated influenzae vaccine viruses can cause a positive result for a rapid influenza diagnostic test if administered up to 7 days prior to rapid testing. Performed By: #### I NFLUAB #### [facility] [address] [place] [address] Dr. Diandra Mays INTERNAL CONTROLS Within Normal Limits Normal Wi thin Normal Limits [facility] Comment on above: Performed By: #### I NFLUAB #### [facility] [address] [place] [address] Dr. Diandra Mays MICRO OTHER TESTSOrdered By: Rita Elena on 06-28-2022 S. pyogenes Ag IA.rapid Ql (Throat) Negative (06/28/22 6:21 PM) Normal Negative [facility] [place] [facility] Vital Signs Date Time Vital Sign Value Performing Clinician Facility 06-28-2024 14:53-0400 Body temperature 98.96 [degF] Luís Greenfield [facility] 06-28-2024 14:53-0400 Diastolic blood pressure 91 mm[Hg] Luís Gin [facility] 06-28-2024 14:53-0400 Heart rate 102 /min Luís Gin [facility] 06-28-2024 14:53-0400 Respiratory rate 16 /min Luís Gin [facility] 06-28-2024 14:53-0400 SaO2% (BldA) [Mass fraction] 100 % Luís Gin [facility] 06-28-2024 14:53-0400 Systolic blood pressure 123 mm[Hg] Luís Gin [facility] 06-11-2024 12:00-0400 Diastolic blood pressure 72 mm[Hg] Luís Gin [facility] 06-11-2024 12:00-0400 Heart rate 84 /min Luís Gin [facility] 06-11-2024 12:00-0400 SaO2% (BldA) [Mass fraction] 99 % Luís Gin [facility] 06-11-2024 12:00-0400 Systolic blood pressure 105 mm[Hg] Luís Gin [facility] 06-11-2024 11:30-0400 Diastolic blood pressure 71 mm[Hg] Luís Gin [facility] 06-11-2024 11:30-0400 Heart rate 83 /min Luís Gin [facility] 06-11-2024 11:30-0400 Mean blood pressure 83 mm[Hg] Luís Gin [facility] 06-11-2024 11:30-0400 Respiratory rate 16 /min Luís Gin [facility] 06-11-2024 11:30-0400 SaO2% (BldA) [Mass fraction] 98 % Luís Greenfield [facility] 06-11-2024 11:30-0400 Systolic blood pressure 106 mm[Hg] Luís [place] 06-11-2024 10:40-0400 Body temperature 97.7 [degF] Luís [facility] 06-11-2024 10:40-0400 Diastolic blood pressure 102 mm[Hg] Luís [facility] 06-11-2024 10:40-0400 Heart rate 88 /min Luís [facility] 06-11-2024 10:40-0400 Respiratory rate 18 /min Luís [facility] 06-11-2024 10:40-0400 SaO2% (BldA) [Mass fraction] 97 % Luís [facility] 06-11-2024 10:40-0400 Systolic blood pressure 133 mm[Hg] Luís [facility] 05-29-2024 02:03-0400 Body temperature 98.24 [degF] Jose Minh [facility] 05-29-2024 02:03-0400 Diastolic blood pressure 86 mm[Hg] Jose Minh [facility] 05-29-2024 02:03-0400 Heart rate 99 /min Jose Minh [facility] 05-29-2024 02:03-0400 Respiratory rate 16 /min Jose Minh [facility] 05-29-2024 02:03-0400 SaO2% (BldA) [Mass fraction] 97 % Jose Minh [facility] 05-29-2024 02:03-0400 Systolic blood pressure 134 mm[Hg] Jose Minh [facility] 05-27-2024 13:22-0400 Blood Pressure Location [facility] 05-27-2024 13:22-0400 Body temperature 98.6 [degF] [facility] 05-27-2024 13:22-0400 Diastolic blood pressure 82 mm[Hg] [facility] 05-27-2024 13:22-0400 Heart rate 107 /min [facility] 05-27-2024 13:22-0400 Respiratory rate 16 /min [facility] 05-27-2024 13:22-0400 SaO2% (BldA) [Mass fraction] 97 % [facility] 05-27-2024 13:22-0400 Systolic blood pressure 114 mm[Hg] [facility] 12-01-2023 08:47-0400 Blood Pressure Location Luís Perla [facility] 12-01-2023 08:47-0400 Diastolic blood pressure 75 mm[Hg] Luís Perla [facility] 12-01-2023 08:47-0400 Heart rate 83 /min Luís Perla [facility] 12-01-2023 08:47-0400 Systolic blood pressure 137 mm[Hg] Luís Perla [facility] [place] 10-23-2023 13:40-0500 Heart rate 59 /min Gayle Arambula MD Work Phone: [facility] 10-23-2023 13:40-0500 SaO2% (BldA) [Mass fraction] 100 % Gayle Arambula MD Work Phone: [facility] 10-23-2023 13:30-0500 Diastolic blood pressure 73 mm[Hg] Gayle Arambula MD Work Phone: [facility] 10-23-2023 13:30-0500 Respiratory rate 16 /min Gayle Arambula MD Work Phone: [facility] 10-23-2023 13:30-0500 Systolic blood pressure 114 mm[Hg] Gayle Arambula MD Work Phone: [facility] 10-23-2023 13:06-0500 Body temperature 96.8 [degF] Gayle Arambula MD Work Phone: [facility] 10-23-2023 10:47-0500 Body weight 56.7 kg Gayle Arambula MD Work Phone: [facility] 07-14-2023 06:30-0500 Body temperature 98.6 [degF] Jose Minh [facility] 07-14-2023 06:30-0500 Diastolic blood pressure 94 mm[Hg] Jose Minh [facility] 07-14-2023 06:30-0500 Heart rate 95 /min Jose Minh [facility] 07-14-2023 06:30-0500 Mean blood pressure 101 mm[Hg] Jose Minh [facility] 07-14-2023 06:30-0500 Respiratory rate 16 /min Jose Minh [facility] 07-14-2023 06:30-0500 SaO2% (BldA) [Mass fraction] 98 % Jose Minh [facility] 07-14-2023 06:30-0500 Systolic blood pressure 115 mm[Hg] Jose Minh [facility] 07-14-2023 06:00-0500 Heart rate 88 /min Jose Minh [facility] 07-14-2023 06:00-0500 Mean blood pressure 104 mm[Hg] Jose Minh [facility] 07-14-2023 06:00-0500 Respiratory rate 17 /min Jose Minh [facility] 07-14-2023 06:00-0500 SaO2% (BldA) [Mass fraction] 99 % Jose Minh [facility] 07-14-2023 05:31-0500 Body temperature 98.6 [degF] Jose Minh [facility] 07-14-2023 05:31-0500 Diastolic blood pressure 91 mm[Hg] Jose Minh [facility] 07-14-2023 05:31-0500 Heart rate 92 /min Jose Minh [facility] 07-14-2023 05:31-0500 Respiratory rate 16 /min Jose Minh [facility] 07-14-2023 05:31-0500 SaO2% (BldA) [Mass fraction] 98 % Jose Minh [facility] 07-14-2023 05:31-0500 Systolic blood pressure 129 mm[Hg] Jose Minh [facility] 07-14-2023 05:21-0500 Heart rate 93 /min Jose Minh [facility] 06-21-2023 14:09-0400 Body height 157.5 cm Pastora Oh MD Work Phone: [facility] 06-21-2023 14:09-0400 Body weight 54.43 kg Pastora Oh MD Work Phone: [facility] 06-21-2023 14:09-0400 Diastolic blood pressure 87 mm[Hg] Pastora Oh MD Work Phone: [facility] 06-21-2023 14:09-0400 Heart rate 78 /min Pastora Oh MD Work Phone: [facility] 06-21-2023 14:09-0400 Systolic blood pressure 142 mm[Hg] Pastora Oh MD Work Phone: [facility] 04-12-2023 03:40-0400 Body temperature 98.06 [degF] Kaylinn Dokken [facility] 04-12-2023 03:40-0400 Diastolic blood pressure 81 mm[Hg] Kaylinn Dokken [facility] 04-12-2023 03:40-0400 Heart rate 63 /min Kaylinn Dokken [facility] 04-12-2023 03:40-0400 Mean blood pressure 92 mm[Hg] Kaylinn Dokken [facility] 04-12-2023 03:40-0400 SaO2% (BldA) [Mass fraction] 99 % Kaylinn Dokken [facility] 04-12-2023 03:40-0400 Systolic blood pressure 115 mm[Hg] Kaylinn Dokken [facility] 04-12-2023 03:00-0400 Diastolic blood pressure 86 mm[Hg] Kaylinn Dokken [facility] 04-12-2023 03:00-0400 Heart rate 64 /min Kaylinn Dokken [facility] 04-12-2023 03:00-0400 Mean blood pressure 95 mm[Hg] Kaylinn Dokken [facility] 04-12-2023 03:00-0400 Systolic blood pressure 113 mm[Hg] Kaylinn Dokken [facility] 04-12-2023 01:56-0400 Body temperature 98.24 [degF] Kaylinn Dokken [facility] 04-12-2023 01:56-0400 Diastolic blood pressure 82 mm[Hg] Kaylinn Dokken [facility] 04-12-2023 01:56-0400 Heart rate 65 /min Kaylinn Dokken [facility] 04-12-2023 01:56-0400 Respiratory rate 20 /min Kaylinn Dokken [facility] 04-12-2023 01:56-0400 SaO2% (BldA) [Mass fraction] 99 % Kaylinn Dokken [facility] 04-12-2023 01:56-0400 Systolic blood pressure 118 mm[Hg] Kaylinn Dokken [facility] 03-19-2023 08:49-0400 Diastolic blood pressure 83 mm[Hg] Jose Wilkinson [facility] 03-19-2023 08:49-0400 Heart rate 86 /min Jose Minh [facility] 03-19-2023 08:49-0400 Mean blood pressure 97 mm[Hg] Jose Minh [facility] 03-19-2023 08:49-0400 SaO2% (BldA) [Mass fraction] 98 % Jose Minh [facility] 03-19-2023 08:49-0400 Systolic blood pressure 124 mm[Hg] Jose Minh [facility] 03-19-2023 06:46-0400 Body temperature 97.7 [degF] Jose Minh [facility] 03-19-2023 06:46-0400 Diastolic blood pressure 88 mm[Hg] Jose Minh [facility] 03-19-2023 06:46-0400 Heart rate 89 /min Jose Minh [facility] 03-19-2023 06:46-0400 Respiratory rate 18 /min Jose Minh [facility] 03-19-2023 06:46-0400 SaO2% (BldA) [Mass fraction] 97 % Jose Minh [facility] 03-19-2023 06:46-0400 Systolic blood pressure 130 mm[Hg] Jose Minh [facility] 11-11-2022 23:00-0500 Heart rate 72 /min Kaylinn Dokken [facility] 11-11-2022 23:00-0500 Mean blood pressure 97 mm[Hg] Kaylinn Dokken [facility] 11-11-2022 22:00-0500 Diastolic blood pressure 103 mm[Hg] Kaylinn Dokken [facility] 11-11-2022 22:00-0500 Heart rate 68 /min Kaylinn Dokken [facility] 11-11-2022 22:00-0500 Mean blood pressure 110 mm[Hg] Kaylinn Dokken [facility] 11-11-2022 20:57-0500 Body temperature 98.24 [degF] Kaylinn Dokken [facility] 11-11-2022 20:57-0500 Diastolic blood pressure 83 mm[Hg] Kaylinn Dokken [facility] 11-11-2022 20:57-0500 Heart rate 73 /min Kaylinn Dokken [facility] 11-11-2022 20:57-0500 Respiratory rate 16 /min Kaylinn Dokken [facility] 11-11-2022 20:57-0500 SaO2% (BldA) [Mass fraction] 100 % Kaylinn Dokken [facility] 11-11-2022 20:57-0500 Systolic blood pressure 124 mm[Hg] Kaylinn Dokken [facility] 11-11-2022 17:00-0500 Diastolic blood pressure 76 mm[Hg] Rey Bruce [facility] 11-11-2022 17:00-0500 Heart rate 87 /min Rey Bruce [facility] 11-11-2022 17:00-0500 Respiratory rate 18 /min Rey Barrera [facility] 11-11-2022 17:00-0500 SaO2% (BldA) [Mass fraction] 97 % Rey Barrera [facility] 11-11-2022 17:00-0500 Systolic blood pressure 134 mm[Hg] Rey Barrera [facility] 11-11-2022 14:59-0500 Body temperature 98.06 [degF] Rey Barrera [facility] 11-11-2022 14:59-0500 Diastolic blood pressure 83 mm[Hg] Rey Barrera [facility] 11-11-2022 14:59-0500 Heart rate 102 /min Rey Barrera [facility] 11-11-2022 14:59-0500 Respiratory rate 16 /min Rey Barrera [facility] 11-11-2022 14:59-0500 SaO2% (BldA) [Mass fraction] 99 % Rey Barrera [facility] 11-11-2022 14:59-0500 Systolic blood pressure 129 mm[Hg] Rey Barrera [facility] 06-28-2022 17:23-0400 Body temperature 98.42 [degF] Luís [facility] [facility] 06-28-2022 17:23-0400 Diastolic blood pressure 86 mm[Hg] Luís [place] [facility] 06-28-2022 17:23-0400 Heart rate 102 /min Luís [facility] [facility] 06-28-2022 17:23-0400 Respiratory rate 14 /min Luís [place] [facility] 06-28-2022 17:23-0400 Systolic blood pressure 123 mm[Hg] Luís [facility] Encounters Encounter Date Encounter Type Care Provider Facility Start: 07-11-2024 End: 07-11-2024 Telephone encounter Sarita Resendiz RNmachine sign writer Comment on above: Appointment (Pre-pro cedure instructions.) Start: 07-04-2024 End: 07-04-2024 ambulatory Ole Escalante [facility] Start: 07-04-2024 End: 07-04-2024 Lab Drop off Ole Escalante [facility] Start: 06-28-2024 End: 06-28-2024 Emergency department patient visit Luís Greenfield [facility] Start: 06-11-2024 End: 06-11-2024 Emergency department patient visit Luís Greenfield Facility[facility] Start: 05-29-2024 End: 05-29-2024 Emergency department patient visit Jose SStormy Wilkinson [facility] Start: 05-27-2024 End: 05-27-2024 ambulatory [facility] Facility:[facility] Start: 05-27-2024 End: 05-27-2024 Patient encounter procedure [facility] Start: 02-16-2024 Orders Only Abner Almazan MD Work Phone: Gastroenterology Comment on above: Generalized abdomina l pain (Primary Dx) Start: 02-13-2024 Telephone encounter Abner Gutierrez MD Work Phone: Gastroenterology Comment on above: Orders Start: 01-29-2024 ambulatory Luís Greenfield Facility: [facility] Start: 12-19-2023 End: 12-19-2023 ambulatory Luís SosaStormy Andersonlesley [facility] Start: 12-19-2023 End: 12-19-2023 Patient encounter procedure Luís Perla [facility] Start: 12-01-2023 End: 12-01-2023 ambulatory Luís Perla Facility:[facility] Start: 12-01-2023 End: 12-01-2023 Patient encounter procedure Luís Perla [facility] [place] Start: 10-23-2023 End: 10-23-2023 ambulatory JENN URBAN Facility:[facility] Start: 10-23-2023 End: 10-23-2023 Subsequent hospital visit by physician Gayle Arambula MD Work Phone: Gastroenterology Comment on above: Generalized abdomina l pain [R10.84] Start: 10-16-2023 Telephone encounter Juan Luis Oneil RNmachine sign writer Start: 10-10-2023 End: 10-10-2023 ambulatory Yoli Rahman [facility] Start: 10-02-2023 End: 10-02-2023 ambulatory Armstrong Trey Kirkpatrickbriani Facility:[facility] Start: 10-02-2023 End: 10-02-2023 Patient encounter procedure Armstrong Chavojose Kayabriani [facility] Start: 09-20-2023 End: 09-20-2023 ambulatory JENN F URBAN Facility:[facility] Start: 09-11-2023 End: 09-11-2023 ambulatory JENN F URBAN Facility:[facility] Start: 08-22-2023 End: 08-22-2023 ambulatory JENN F URBAN Facility:[facility] Start: 08-11-2023 End: 08-11-2023 ambulatory JENN F URBAN Facility:[facility] Start: 08-01-2023 End: 08-01-2023 ambulatory PASTORA [place] Facility:[facility] Start: 07-25-2023 ambulatory [facility] Facility:[facility] Start: 07-17-2023 End: 07-17-2023 ambulatory PASTORA HO Facility[facility] Start: 07-14-2023 End: 07-14-2023 Emergency department patient visit Jose Wilkinson [facility] Start: 06-22-2023 Telephone encounter Pastora Oh MD Work Phone: General Surgery Comment on above: Patient Update Start: 06-21-2023 End: 06-21-2023 Patient encounter procedure Pastora Oh MD Work Phone: General Surgery Comment on above: Abnormal CT of the a bdomen (Primary Dx); Infection in abdomen (HCC) Start: 06-19-2023 ambulatory Analilia cordero APRN.CNP Work Phone: Gastroenterology Start: 04-12-2023 End: 04-12-2023 Emergency department patient visit Desean Mayes [facility] Start: 03-19-2023 End: 03-19-2023 Emergency department patient visit Jose Wilkinson [facility] Start: 11-11-2022 End: 11-11-2022 Emergency department patient visit Desean Mayes [facility] Start: 11-11-2022 End: 11-11-2022 Emergency department patient visit Rey Barrera [facility] Start: 10-05-2022 End: 10-05-[address] [facility] [place]: Start: 08-14-2022 End: 08-14-[address] MARTELL WEEKS Facility:[facility] Start: 08-08-2022 End: 08-08-[address] RIMA Burrows Facility:[facility] Start: 06-28-2022 End: 06-28-2022 Emergency department patient visit Luís Greenfield [facility] Procedures Date Procedure Procedure Detail Performing Clinician Start: 10-23-2023 Esophagoscp rig drew soral hypopharynx crv esoph Abner Almazan MD Work Phone: Start: 10-23-2023 Colonoscopy flx dx w /collj spec when pfrmd Abner Almazan MD Work Phone: Denies Luís [facility]field Plan of Treatment Date Care Activity Detail Author Start: 08-11-2026 Screening for malignant neoplasm of cervix [facility] Start: 05-04-2025 Urine microalbumin profile [facility] Start: 08-11-2024 GC (Gonorrhea) Screening (18-24) GC (Gonorrhea) Screening (18-24) [facility] Start: 08-11-2024 Screening for Chlamydia trachomatis Chlamydia Screening (18) [facility] Start: 07-18-2024 End: 07-18-2024 Patient encounter procedure 07/18/2024 7:30 AM EST Appointment Gastroenterology [address] [place] [address] Gayle Arambula MD [address] [id number] Generalized abdominal pain [R10.84] Gastroenterology Comment on above: Generalized abdominal pain [R10.84] Start: 05-05-2024 Covid-19 Vaccine ( season) Covid-19 Vaccine ( season) [facility] Start: 05-05-2024 Influenza vaccination [facility] Start: 09-04-2023 Behavioral Health Screening Behavioral Health Screening [facility] Start: 09-04-2023 Depression Assessment Depression Assessment [facility] Start: 09-01-2023 Covid-19 Vaccine ( season) Covid-19 Vaccine ( season) [facility] Start: 05-05-2023 Influenza vaccination Influenza Vaccine (#1) [facility] Start: 09-04-2022 Depression Assessment Depression Assessment [facility] Start: 2021 Urine microalbumin profile DTaP,Tdap,Td Vaccine (1 - Tdap) [facility] Start: 2020 Anxiety Screening Anxiety Screening [facility] Start: 2020 Chlamydia Screening () Chlamydia Screening (-) [facility] Start: 2020 Depression Screening Depression Screening [facility] Start: 2020 GC (Gonorrhea) Screening () GC (Gonorrhea) Screening () [facility] Start: 2020 Hepatitis C Screening Hepatitis C Screening [facility] Start: 2020 Hepatitis C screening Hepatitis C Screening [facility] Start: 2020 HIV Screening HIV Screening [facility] Start: 2020 HIV screening HIV Screening [facility] Start: 2018 Meningococcal B Vaccine: Consider Based On Risk (1 of 2 - Patient Seeks Protection) Meningococcal B Vaccine: Consider Based On Risk (1 of 2 - Patient Seeks Protection) [facility] Start: 2016 Peds To Adult Transition Annual Assessment Peds To Adult Transition Annual Assessment [facility] Start: 11-02-2015 HPV Vaccine (2 - 2-dose series) HPV Vaccine (2 - 2-dose series) [facility] Start: 2014 Peds To Adult Transition Initial Discussion Peds To Adult Transition Initial Discussion [facility] Start: 2011 HPV Vaccine (1 - 2-dose series) HPV Vaccine (1 - 2-dose series) [facility] Start: 2002 Covid-19 Vaccine (#1) Covid-19 Vaccine (#1) [facility] Start: 2002 Hepatitis B Vaccine (1 of 3 - 3-dose series) Hepatitis B Vaccine (1 of 3 - 3-dose series) [facility] End: 07-20-2024 Ct abdomen & pelvis w/contrast material CT ABD/PEL W IVCON Radiology Routine Infection in abdomen (HCC) 1 Occurrences starting 06/21/2023 until 07/20/[address] [facility] Work Phone: Comment on above: 1 Occurrences starting 06/21/2023 until 07/20/2024 End: 02-15-2025 Flexible sigmoidoscopy study COLONOSCOPY DIAGNOSTIC Endoscopy Routine Generalized abdominal pain 1 Occurrences starting 02/16/2024 until 02/15/[address] [facility] Work Phone: Comment on above: 1 Occurrences starting 02/16/2024 until 02/15/[address] [facility] Work Phone: Comment on above: Release Upon Ordering for 1 Occurrences starting 10/23/2023, 1 completed [facility] Immunizations Immunization Date Immunization Notes Care Provider Flora masterson 08-11-2023 HPV, unspecified formulation Nathaniel Weeks [facility] 08-11-2023 Human Papillomavirus 9-valent vaccine Juan Luis Oneil RN [facility] 06-22-2020 meningococcal ACWY vaccine, unspecified formulation Jose Minh [facility] 05-04-2015 HPV, unspecified formulation Jose Minh [facility] 05-04-2015 meningococcal ACWY vaccine, unspecified formulation Jose Minh [facility] 05-04-2015 tetanus toxoid, redu natalie diphtheria toxoid, and acellular pertussis vaccine, adsorbed Jose Minh [facility] 05-23-2008 diphtheria, tetanus toxoids and acellular pertussis vaccine, unspecified formulation Juan Luis Oneil RN [facility] 05-23-2008 DTaP, unspecified formulation Jose Minh [facility] 05-23-2008 Hep A, unspecified formulation Jose Minh [facility] 05-23-2008 hepatitis A vaccine, unspecified formulation Juan Luis Oneil RN [facility] 05-23-2008 measles, mumps and rubella virus vaccine Jose Minh [facility] 05-23-2008 poliovirus vaccine, unspecified formulation Jose Minh [facility] 05-23-2008 varicella virus vaccine Jose Minh [facility] 01-04-2006 diphtheria, tetanus toxoids and acellular pertussis vaccine, unspecified formulation Juan Luis Oneil RN [facility] 01-04-2006 DTaP, unspecified formulation Jose Minh [facility] 09-29-2004 DTaP-hepatitis B and poliovirus vaccine Jose Minh [facility] 09-29-2004 haemophilus influenz ae type b vaccine, conjugate unspecified formulation Juan Luis Oneil RN [facility] 09-29-2004 Hib, unspecified formulation Jose Minh [facility] 09-29-2004 measles, mumps and rubella virus vaccine Jose Minh [facility] 09-29-2004 varicella virus vaccine Jose Minh [facility] 2002 diphtheria, tetanus toxoids and acellular pertussis vaccine, unspecified formulation Juan Luis Oneil RN [facility] 2002 DTaP, unspecified formulation Jose Minh [facility] 2002 haemophilus influenz ae type b vaccine, PRP-OMP conjugate Jose Minh [facility] 2002 poliovirus vaccine, unspecified formulation Jose Minh [facility] 2002 diphtheria, tetanus toxoids and acellular pertussis vaccine, unspecified formulation Juan Luis Oneil RN [facility] 2002 DTaP, unspecified formulation Jose Minh [facility] 2002 haemophilus influenz ae type b vaccine, PRP-OMP conjugate JoseMystery Sciencener [facility] 2002 hepatitis B vaccine, pediatric or pediatric/adolescent dosage JoseMystery Sciencener [facility] 2002 poliovirus vaccine, unspecified formulation [employer] [facility] 2002 hepatitis B vaccine, pediatric or pediatric/adolescent dosage JoseMystery Sciencener [facility] NEGATED: Highlighted row has not occurred!12-01-2023 influenza virus vaccine, unspecified formulation Luís Perla [facility] [place] Payers Date Payer Category Payer Medicaid [place] [employer] [facility] [place] [id number] 2022-Present [phone] [address] [address] [place] [address] Medicaid [id number] 2002 Unknown [id number] 2002 Unknown [id number] 2.16.840.1.759270.3.579.2.593 2002 Unknown [id number] 2.16.840.1.681370.3.579.2.593 2002 Unknown [id number] 2.16.840.1.280492.3.579.2.727 2002 Unknown [id number] 2.16.840.1.484802.3.579.2.727 2002 Unknown [id number] 2.16.840.1.053589.3.579.2.727 2002 Unknown [id number] 2.16.840.1.992306.3.579.2.727 2002 Unknown [id number] 2.16.840.1.452073.3.579.2.727 2002 Unknown [id number] 2.16.840.1.051610.3.579.2.727 2002 Unknown [id number] 2.16.840.1.221527.3.579.2.727 2002 Unknown [id number] 2.16.840.1.782309.3.579.2.727 2002 Unknown [id number] 2.16.840.1.181698.3.579.2.727 2002 Unknown [id number] 2.16.840.1.294546.3.579.2.727 2002 Unknown [id number] 2.16.840.1.460692.3.579.2.727 2002 Unknown [id number] 2.16.840.1.325976.3.579.2.727 2002 Unknown [id number] 2.16.840.1.284065.3.579.2.727 2002 Unknown [id number] [id number] 1959 Unknown [id number] Social History Date Type Detail Facility Start: 11-28-2018 End: 06-21-2023 Tobacco smoking status Never smoked tobacco (finding) [facility] Start: 01-07-2023 End: 08-22-2023 Sex Assigned At Female [facility] Tobacco smoking status NHIS Tobacco smoking consumption unknown [facility] Work Phone: Start: 01-07-2023 End: 08-22-2023 History of Social function [facility] National Score (1-100), lower number is lower risk 75 [facility] Start: 2002 Sex Assigned At Not on file [facility] Start: 06-21-2023 Tobacco use and exposure Smokeless tobacco non-user [facility] Start: 06-22-2023 End: 10-23-2023 Alcohol intake Ex-drinker (finding) [facility] Functional Status Date Assessment Result Facility 06-28-2024 Functional Status N/A [facility] 06-11-2024 Functional Status N/A [facility] 05-29-2024 Functional Status N/A [facility] 05-27-2024 Functional Status N/A [facility] 07-14-2023 Functional Status N/A [facility] 04-12-2023 Functional Status N/A [facility] 03-19-2023 Functional Status N/A [facility] 11-11-2022 Functional Status N/A [facility] 11-11-2022 Functional Status N/A [facility] 06-28-2022 Functional Status N/A [facility] Clinical Notes 06-28-2022 to 07-11-2024 Telephone Encounter - Sarita Resendiz RN - 07/11/2024 12:25 PM ESTTelephone Encounter - Sarita Resendiz RN - 07/11/2024 12:25 PM EST Note Date & Type Note Facility 07-11-2024 Telephone encount er Note GI Pre-Procedure Spoke with patient: Yes Confirmed date scheduled and patient report time: Yes Procedure Planned:Colonoscopy with or without biopsies based on clinical findings Is the patient on blood thinners?no Procedure Instructions given to patient: Yes, and they verbalized their understanding of instructions given Patient instructed to take prescribed preparation prior to procedure:Yes, and they verbalized their understanding of instructions given Patient instructed to have family/friend present for procedure transport 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 and They verbalized their understanding and agree to have a responsible adult accompany the patient to their procedure and remain in the endoscopy area. 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 Type of instruction given: Verbal by telephone contact. Sarita Resendiz RN [facility] 07-11-2024 Miscellaneous Notes Formattin g of this note might be different from the original. 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 and They verbalized their understanding and agree to have a responsible adult accompany the patient to their procedure and remain in the endoscopy area. 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 Type of instruction given: Verbal by telephone contact. Sarita Resendiz RN documented in this encounter [facility] 07-04-2024 Evaluation + Plan note Diagnostic Tests PendingHSV [facility] [employer] 07/04/24 [facility] 06-28-2024 Hospital Discharg e instructions Patient Education 06/28/2024 17:23:50 Urinary Tract Infection, Adult Urinary Tract Infection, Adult A urinary tract infection (UTI) is an infection of any part of the urinary tract. The urinary tract includes the kidneys, ureters, bladder, and urethra. These organs make, store, and get rid of urine in the body. An upper UTI affects the ureters and kidneys. A lower UTI affects the bladder and urethra. What are the causes? Most urinary tract infections are caused by bacteria in your genital area around your urethra, where urine leaves your body. These bacteria grow and cause inflammation of your urinary tract. What increases the risk? You are more likely to develop this condition if: You have a urinary catheter that stays in place. You are not able to control when you urinate or have a bowel movement (incontinence). You are female and you: ?Use a spermicide or diaphragm for control. ?Have low estrogen levels. ?Are . You have certain genes that increase your risk. You are sexually active. You take antibiotic medicines. You have a condition that causes your flow of urine to slow down, such as: ?An enlarged prostate, if you are male. ?Blockage in your urethra. ?A kidney stone. ?A nerve condition that affects your bladder control (neurogenic bladder). ?Not getting enough to drink, or not urinating often. You have certain medical conditions, such as: ?Diabetes. ?A weak disease-fighting system (immunesystem). ?Sickle cell disease. ?Gout. ?Spinal cord injury. What are the signs or symptoms? Symptoms of this condition include: Needing to urinate right away (urgency). Frequent urination. This may include small amounts of urine each time you urinate. Pain or burning with urination. Blood in the urine. Urine that smells bad or unusual. Trouble urinating. Cloudy urine. Vaginal discharge, if you are female. Pain in the abdomen or the lower back. You may also have: Vomiting or a decreased appetite. Confusion. Irritability or tiredness. A fever or chills. Diarrhea. The first symptom in older adults may be confusion. In some cases, they may not have any symptoms until the infection has worsened. How is this diagnosed? This condition is diagnosed based on your medical history and a physical exam. You may also have other tests, including: Urine tests. Blood tests. Tests for STIs (sexually transmitted infections). If you have had more than one UTI, a cystoscopy or imaging studies may be done to determine the cause of the infections. How is this treated? Treatment for this condition includes: Antibiotic medicine. Ysvm-fui-pzuqrzb medicines to treat discomfort. Drinking enough water to stay hydrated. If you have frequent infections or have other conditions such as a kidney stone, you may need to see a health care provider who specializes in the urinary tract (urologist). In rare cases, urinary tract infections can cause sepsis. Sepsis is a life-threatening condition that occurs when the body responds to an infection. Sepsis is treated in the hospital with IV antibiotics, fluids, and other medicines. Follow these instructions at home: Medicines Take vzoi-adx-fxdqync and prescription medicines only as told by your health care provider. If you were prescribed an antibiotic medicine, take it as told by your health care provider. Do not stop using the antibiotic even if you start to feel better. General instructions Make sure you: ?Empty your bladder often and completely. Do not hold urine for long periods of time. ?Empty your bladder after sex. ?Wipe from front to back after urinating or having a bowel movement if you are female. Use each tissue only one time when you wipe. Drink enough fluid to keep your urine pale yellow. Keep all follow-up visits. This is important. Contact a health care provider if: Your symptoms do not get better after 1 2 days. Your symptoms go away and then return. Get help right away if: You have severe pain in your back or your lower abdomen. You have a fever or chills. You have nausea or vomiting. Summary A urinary tract infection (UTI) is an infection of any part of the urinary tract, which includes the kidneys, ureters, bladder, and urethra. Most urinary tract infections are caused by bacteria in your genital area. Treatment for this condition often includes antibiotic medicines. If you were prescribed an antibiotic medicine, take it as told by your health care provider. Do not stop using the antibiotic even if you start to feel better. Keep all follow-up visits. This is important. This information is not intended to replace advice given to you by your health care provider. Make sure you discuss any questions you have with your health care provider. Document Revised: 03/28/2021 Document Reviewed: 04/02/2021 [employer] Patient Education 2023 [employer]. Follow Up Care 06/28/2024 14:47:32 With:Jenn Urban Address: [address] [place] [address]. [address] [place] [address]- Business (1) When:07/01/2024 16:50:51 [facility] 06-28-2024 Note ED Patient Education Note Obstetrics and Gynecology Urinary Tract Infection, Adult A urinary tract infection (UTI) is an infection of any part of the urinary tract. The urinary tract includes the kidneys, ureters, bladder, and urethra. These organs make, store, and get rid of urine in the body. An upper UTI affects the ureters and kidneys. A lower UTI affects the bladder and urethra. What are the causes? Most urinary tract infections are caused by bacteria in your genital area around your urethra, where urine leaves your body. These bacteria grow and cause inflammation of your urinary tract. What increases the risk? You are more likely to develop this condition if: ??? You have a urinary catheter that stays in place. ??? You are not able to control when you urinate or have a bowel movement (incontinence). ??? You are female and you: ? Use a spermicide or diaphragm for control. ? Have low estrogen levels. ? Are . ??? You have certain genes that increase your risk. ??? You are sexually active. ??? You take antibiotic medicines. ??? You have a condition that causes your flow of urine to slow down, such as: ? An enlarged prostate, if you are male. ? Blockage in your urethra. ? A kidney stone. ? A nerve condition that affects your bladder control (neurogenic bladder). ? Not getting enough to drink, or not urinating often. ??? You have certain medical conditions, such as: ? Diabetes. ? A weak disease-fighting system (immunesystem). ? Sickle cell disease. ? Gout. ? Spinal cord injury. What are the signs or symptoms? Symptoms of this condition include: ??? Needing to urinate right away (urgency). ??? Frequent urination. This may include small amounts of urine each time you urinate. ??? Pain or burning with urination. ??? Blood in the urine. ??? Urine that smells bad or unusual. ??? Trouble urinating. ??? Cloudy urine. ??? Vaginal discharge, if you are female. ??? Pain in the abdomen or the lower back. You may also have: ??? Vomiting or a decreased appetite. ??? Confusion. ??? Irritability or tiredness. ??? A fever or chills. ??? Diarrhea. The first symptom in older adults may be confusion. In some cases, they may not have any symptoms until the infection has worsened. How is this diagnosed? This condition is diagnosed based on your medical history and a physical exam. You may also have other tests, including: ??? Urine tests. ??? Blood tests. ??? Tests for STIs (sexually transmitted infections). If you have had more than one UTI, a cystoscopy or imaging studies may be done to determine the cause of the infections. How is this treated? Treatment for this condition includes: ??? Antibiotic medicine. ??? Rnst-vfd-mvscuoo medicines to treat discomfort. ??? Drinking enough water to stay hydrated. If you have frequent infections or have other conditions such as a kidney stone, you may need to see a health care provider who specializes in the urinary tract (urologist). In rare cases, urinary tract infections can cause sepsis. Sepsis is a life-threatening condition that occurs when the body responds to an infection. Sepsis is treated in the hospital with IV antibiotics, fluids, and other medicines. Follow these instructions at home: Medicines ??? Take lmxl-ysh-pkcplgb and prescription medicines only as told by your health care provider. ??? If you were prescribed an antibiotic medicine, take it as told by your health care provider. Do not stop using the antibiotic even if you start to feel better. General instructions ??? Make sure you: ? Empty your bladder often and completely. Do not hold urine for long periods of time. ? Empty your bladder after sex. ? Wipe from front to back after urinating or having a bowel movement if you are female. Use each tissue only one time when you wipe. ??? Drink enough fluid to keep your urine pale yellow. ??? Keep all follow-up visits. This is important. Contact a health care provider if: ??? Your symptoms do not get better after 1?2 days. ??? Your symptoms go away and then return. Get help right away if: ??? You have severe pain in your back or your lower abdomen. ??? You have a fever or chills. ??? You have nausea or vomiting. Summary ??? A urinary tract infection (UTI) is an infection of any part of the urinary tract, which includes the kidneys, ureters, bladder, and urethra. ??? Most urinary tract infections are caused by bacteria in your genital area. ??? Treatment for this condition often includes antibiotic medicines. ??? If you were prescribed an antibiotic medicine, take it as told by your health care provider. Do not stop using the antibiotic even if you start to feel better. ??? Keep all follow-up visits. This is important. This information is not intended to replace advice given to you by your health care provider. Make rasheeda (more content not included)... [facility] 06-28-2024 Evaluation + Plan note Diagnostic Tests PendingChlam/GC/Trich,JERMAINE 06/28/24Urine Culture 06/28/24 [facility] 06-11-2024 Hospital Discharg e instructions Patient Education 06/11/2024 12:23:12 Urinary Tract Infection, Adult Urinary Tract Infection, Adult A urinary tract infection (UTI) is an infection of any part of the urinary tract. The urinary tract includes the kidneys, ureters, bladder, and urethra. These organs make, store, and get rid of urine in the body. An upper UTI affects the ureters and kidneys. A lower UTI affects the bladder and urethra. What are the causes? Most urinary tract infections are caused by bacteria in your genital area around your urethra, where urine leaves your body. These bacteria grow and cause inflammation of your urinary tract. What increases the risk? You are more likely to develop this condition if: You have a urinary catheter that stays in place. You are not able to control when you urinate or have a bowel movement (incontinence). You are female and you: ?Use a spermicide or diaphragm for control. ?Have low estrogen levels. ?Are . You have certain genes that increase your risk. You are sexually active. You take antibiotic medicines. You have a condition that causes your flow of urine to slow down, such as: ?An enlarged prostate, if you are male. ?Blockage in your urethra. ?A kidney stone. ?A nerve condition that affects your bladder control (neurogenic bladder). ?Not getting enough to drink, or not urinating often. You have certain medical conditions, such as: ?Diabetes. ?A weak disease-fighting system (immunesystem). ?Sickle cell disease. ?Gout. ?Spinal cord injury. What are the signs or symptoms? Symptoms of this condition include: Needing to urinate right away (urgency). Frequent urination. This may include small amounts of urine each time you urinate. Pain or burning with urination. Blood in the urine. Urine that smells bad or unusual. Trouble urinating. Cloudy urine. Vaginal discharge, if you are female. Pain in the abdomen or the lower back. You may also have: Vomiting or a decreased appetite. Confusion. Irritability or tiredness. A fever or chills. Diarrhea. The first symptom in older adults may be confusion. In some cases, they may not have any symptoms until the infection has worsened. How is this diagnosed? This condition is diagnosed based on your medical history and a physical exam. You may also have other tests, including: Urine tests. Blood tests. Tests for STIs (sexually transmitted infections). If you have had more than one UTI, a cystoscopy or imaging studies may be done to determine the cause of the infections. How is this treated? Treatment for this condition includes: Antibiotic medicine. Nrmq-bjn-bjiqxtn medicines to treat discomfort. Drinking enough water to stay hydrated. If you have frequent infections or have other conditions such as a kidney stone, you may need to see a health care provider who specializes in the urinary tract (urologist). In rare cases, urinary tract infections can cause sepsis. Sepsis is a life-threatening condition that occurs when the body responds to an infection. Sepsis is treated in the hospital with IV antibiotics, fluids, and other medicines. Follow these instructions at home: Medicines Take yvke-rut-mtvsgup and prescription medicines only as told by your health care provider. If you were prescribed an antibiotic medicine, take it as told by your health care provider. Do not stop using the antibiotic even if you start to feel better. General instructions Make sure you: ?Empty your bladder often and completely. Do not hold urine for long periods of time. ?Empty your bladder after sex. ?Wipe from front to back after urinating or having a bowel movement if you are female. Use each tissue only one time when you wipe. Drink enough fluid to keep your urine pale yellow. Keep all follow-up visits. This is important. Contact a health care provider if: Your symptoms do not get better after 1 2 days. Your symptoms go away and then return. Get help right away if: You have severe pain in your back or your lower abdomen. You have a fever or chills. You have nausea or vomiting. Summary A urinary tract infection (UTI) is an infection of any part of the urinary tract, which includes the kidneys, ureters, bladder, and urethra. Most urinary tract infections are caused by bacteria in your genital area. Treatment for this condition often includes antibiotic medicines. If you were prescribed an antibiotic medicine, take it as told by your health care provider. Do not stop using the antibiotic even if you start to feel better. Keep all follow-up visits. This is important. This information is not intended to replace advice given to you by your health care provider. Make sure you discuss any questions you have with your health care provider. Document Revised: 03/28/2021 Document Reviewed: 04/02/2021 [employer] Patient Education 2023 [employer]. 06/11/2024 12:23:12 Constipation, Adult Constipation, Adult Constipation is when a person has fewer than three bowel movements in a week, has difficulty having a bowel movement, or has stools (feces) that are dry, hard, or larger than normal. Constipation may be caused by an underlying condition. It may become worse with age if a person takes certain medicines and does not take in enough fluids. Follow these instructions at home: Eating and drinking Eat foods that have a lot of fiber, such as beans, whole grains, and fresh fruits and vegetables. Limit foods that are low in fiber and high in fat and processed sugars, such as fried or sweet foods. These include wallisian fries, hamburgers, cookies, candies, and soda. Drink enough fluid to keep your urine pale yellow. General instructions Exercise regularly or as told by your health care provider. Try to do 150 minutes of moderate exercise each week. Use the bathroom when you have the urge to go. Do not hold it in. Take nsku-fkn-diundwo and prescription medicines only as told by your health care provider. This includes any fiber supplements. During bowel movements: ?Practice deep breathing while relaxing the lower abdomen. ?Practice pelvic floor relaxation. Watch your condition for any changes. Let your health care provider know about them. Keep all follow-up visits as told by your health care provider. This is important. Contact a health care provider if: You have pain that gets worse. You have a fever. You do not have a bowel movement after 4 days. You vomit. You are not hungry or you lose weight. You are bleeding from the opening between the buttocks (anus). You have thin, pencil-like stools. Get help right away if: You have a fever and your symptoms suddenly get worse. You leak stool or have blood in your stool. Your abdomen is bloated. You have severe pain in your abdomen. You feel dizzy or you faint. Summary Constipation is when a person has fewer than three bowel movements in a week, has difficulty having a bowel movement, or has stools (feces) that are dry, hard, or larger than normal. Eat foods that have a lot of fiber, such as beans, whole grains, and fresh fruits and vegetables. Drink enough fluid to keep your urine pale yellow. Take dmra-wzy-onuwgiu and prescription medicines only as told by your health care provider. This includes any fiber supplements. This information is not intended to replace advice given to you by your health care provider. Make sure you discuss any questions you have with your health care provider. Document Revised: 07/05/2023 Document Reviewed: 07/05/2023 [employer] Patient Education 2023 [employer]. Follow Up Care 06/11/2024 10:36:26 With:Jenn Urban Address: [address] [place] [address]. [place] [phone] Business (1) When:06/14/2024 12:17:21 [facility] 06-11-2024 Evaluation + Plan note Diagnostic Tests PendingUrine Culture 06/11/24 [facility] 06-11-2024 Note ED Patient Education Note Gastroenterology Constipation, Adult Constipation is when a person has fewer than three bowel movements in a week, has difficulty having a bowel movement, or has stools (feces) that are dry, hard, or larger than normal. Constipation may be caused by an underlying condition. It may become worse with age if a person takes certain medicines and does not take in enough fluids. Follow these instructions at home: Eating and drinking ? Eat foods that have a lot of fiber, such as beans, whole grains, and fresh fruits and vegetables. ? Limit foods that are low in fiber and high in fat and processed sugars, such as fried or sweet foods. These include wallisian fries, hamburgers, cookies, candies, and soda. ? Drink enough fluid to keep your urine pale yellow. General instructions ? Exercise regularly or as told by your health care provider. Try to do 150 minutes of moderate exercise each week. ? Use the bathroom when you have the urge to go. Do not hold it in. ? Take mzah-xko-sszhfgs and prescription medicines only as told by your health care provider. This includes any fiber supplements. ? During bowel movements: ? Practice deep breathing while relaxing the lower abdomen. ? Practice pelvic floor relaxation. ? Watch your condition for any changes. Let your health care provider know about them. ? Keep all follow-up visits as told by your health care provider. This is important. Contact a health care provider if: ? You have pain that gets worse. ? You have a fever. ? You do not have a bowel movement after 4 days. ? You vomit. ? You are not hungry or you lose weight. ? You are bleeding from the opening between the buttocks (anus). ? You have thin, pencil-like stools. Get help right away if: ? You have a fever and your symptoms suddenly get worse. ? You leak stool or have blood in your stool. ? Your abdomen is bloated. ? You have severe pain in your abdomen. ? You feel dizzy or you faint. Summary ? Constipation is when a person has fewer than three bowel movements in a week, has difficulty having a bowel movement, or has stools (feces) that are dry, hard, or larger than normal. ? Eat foods that have a lot of fiber, such as beans, whole grains, and fresh fruits and vegetables. ? Drink enough fluid to keep your urine pale yellow. ? Take alnj-cfg-sazoypq and prescription medicines only as told by your health care provider. This includes any fiber supplements. This information is not intended to replace advice given to you by your health care provider. Make sure you discuss any questions you have with your health care provider. Document Revised: 07/05/2023 Document Reviewed: 07/05/2023 Amanda Patient Education ? 2023 [employer]. Obstetrics and Gynecology Urinary Tract Infection, Adult A urinary tract infection (UTI) is an infection of any part of the urinary tract. The urinary tract includes the kidneys, ureters, bladder, and urethra. These organs make, store, and get rid of urine in the body. An upper UTI affects the ureters and kidneys. A lower UTI affects the bladder and urethra. What are the causes? Most urinary tract infections are caused by bacteria in your genital area around your urethra, where urine leaves your body. These bacteria grow and cause inflammation of your urinary tract. What increases the risk? You are more likely to develop this condition if: ? You have a urinary catheter that stays in place. ? You are not able to control when you urinate or have a bowel movement (incontinence). ? You are female and you: ? Use a spermicide or diaphragm for control. ? Have low estrogen levels. ? Are . ? You have certain genes that increase your risk. ? You are sexually active. ? You take antibiotic medicines. ? You have a condition that causes your flow of urine to slow down, such as: ? An enlarged prostate, if you are male. ? Blockage in your urethra. ? A kidney stone. ? A nerve condition that affects your bladder control (neurogenic bladder). ? Not getting enough to drink, or not urinating often. ? You have certain medical conditions, such as: ? Diabetes. ? A weak disease-fighting system (immunesystem). ? Sickle cell disease. ? Gout. ? Spinal cord injury. What are the signs or symptoms? Symptoms of this condition include: ? Needing to urinate right away (urgency). ? Frequent urination. This may include small amounts of urine each time you urinate. ? Pain or burning with urination. ? Blood in the urine. ? Urine that smells bad or unusual. ? Trouble urinating. ? Cloudy urine. ? Vaginal discharge, if you are female. ? Pain in the abdomen or the lower back. You may also have: ? Vomiting or a decreased appetite. ? Confusion. ? Irritability or tiredness. ? A fever or chills. ? Diarrhea. The first symptom in older adults may be confusion. In tanya (more content not included)... [facility] 05-29-2024 Evaluation + Plan note Extrac james from: Title:ED Note Author:Jose Wilkinson DO Date :05/29/24 Otitis externa of both ears (H60.93: Unspecified otitis externa, bilateral) Orders: polymyxin B-trimethoprim ophthalmic, 4 drop(s), Soln-Opth, Ear-Both, Once, Stop date 05/29/24 2:41:00 EDT, STAT, Start date 05/29/24 2:41:00 EDT [facility] 09-25-2024 Hospital Discharge instructions Patient Education 05/29/2024 03:05:04 Otitis Externa Otitis Externa Otitis externa is an infection of the outer ear canal. The outer ear canal is the area between the outside of the ear and the eardrum. Otitis externa is sometimes called swimmer's ear. What are the causes? Common causes of this condition include: Swimming in dirty water. Moisture in the ear. An injury to the inside of the ear. An object stuck in the ear. A cut or scrape on the outside of the ear or in the ear canal. What increases the risk? You are more likely to develop this condition if you go swimming often. What are the signs or symptoms? The first symptom of this condition is often itching in the ear. Later symptoms of the condition include: Swelling of the ear. Redness in the ear. Ear pain. The pain may get worse when you pull on your ear. Pus coming from the ear. How is this diagnosed? This condition may be diagnosed by examining the ear and testing fluid from the ear for bacteria and funguses. How is this treated? This condition may be treated with: Antibiotic ear drops. These are often given for 10 14 days. Medicines to reduce itching and swelling. Follow these instructions at home: If you were prescribed antibiotic ear drops, use them as told by your health care provider. Do not stop using the antibiotic even if you start to feel better. Take fpqy-ued-vcpfcfq and prescription medicines only as told by your health care provider. Avoid getting water in your ears as told by your health care provider. This may include avoiding swimming or water sports for a few days. Keep all follow-up visits. This is important. How is this prevented? Keep your ears dry. Use the corner of a towel to dry your ears after you swim or bathe. Avoid scratching or putting things in your ear. Doing these things can damage the ear canal or remove the protective wax that lines it, which makes it easier for bacteria and funguses to grow. Avoid swimming in lakes, polluted water, or swimming pools that may not have enough chlorine. Contact a health care provider if: You have a fever. Your ear is still red, swollen, painful, or draining pus after 3 days. Your redness, swelling, or pain gets worse. You have a severe headache. Get help right away if: You have redness, swelling, and pain or tenderness in the area behind your ear. Summary Otitis externa is an infection of the outer ear canal. Common causes include swimming in dirty water, moisture in the ear, or a cut or scrape in the ear. Symptoms include pain, redness, and swelling of the ear canal. If you were prescribed antibiotic ear drops, use them as told by your health care provider. Do not stop using the antibiotic even if you start to feel better. This information is not intended to replace advice given to you by your health care provider. Make sure you discuss any questions you have with your health care provider. Document Revised: 11/03/2021 Document Reviewed: 11/03/2021 [employer] Patient Education 2023 [employer]. Follow Up Care 05/29/2024 01:48:33 With:Jenn Urban Address: [address] [place] [address]. [address] [place], [place] [id number]- Business (1) When:Within 3 Day(s) [facility] 09-25-2024 NoteED Patient Education Note Infectious Disease Otitis Externa Otitis externa is an infection of the outer ear canal. The outer ear canal is the area between the outside of the ear and the eardrum. Otitis externa is sometimes called swimmer's ear. What are the causes? Common causes of this condition include: ? Swimming in dirty water. ? Moisture in the ear. ? An injury to the inside of the ear. ? An object stuck in the ear. ? A cut or scrape on the outside of the ear or in the ear canal. What increases the risk? You are more likely to develop this condition if you go swimming often. What are the signs or symptoms? The first symptom of this condition is often itching in the ear. Later symptoms of the condition include: ? Swelling of the ear. ? Redness in the ear. ? Ear pain. The pain may get worse when you pull on your ear. ? Pus coming from the ear. How is this diagnosed? This condition may be diagnosed by examining the ear and testing fluid from the ear for bacteria and funguses. How is this treated? This condition may be treated with: ? Antibiotic ear drops. These are often given for 10?14 days. ? Medicines to reduce itching and swelling. Follow these instructions at home: ? If you were prescribed antibiotic ear drops, use them as told by your health care provider. Do not stop using the antibiotic even if you start to feel better. ? Take lvjn-zfy-irzqplj and prescription medicines only as told by your health care provider. ? Avoid getting water in your ears as told by your health care provider. This may include avoiding swimming or water sports for a few days. ? Keep all follow-up visits. This is important. How is this prevented? ? Keep your ears dry. Use the corner of a towel to dry your ears after you swim or bathe. ? Avoid scratching or putting things in your ear. Doing these things can damage the ear canal or remove the protective wax that lines it, which makes it easier for bacteria and funguses to grow. ? Avoid swimming in lakes, polluted water, or swimming pools that may not have enough chlorine. Contact a health care provider if: ? You have a fever. ? Your ear is still red, swollen, painful, or draining pus after 3 days. ? Your redness, swelling, or pain gets worse. ? You have a severe headache. Get help right away if: ? You have redness, swelling, and pain or tenderness in the area behind your ear. Summary ? Otitis externa is an infection of the outer ear canal. ? Common causes include swimming in dirty water, moisture in the ear, or a cut or scrape in the ear. ? Symptoms include pain, redness, and swelling of the ear canal. ? If you were prescribed antibiotic ear drops, use them as told by your health care provider. Do not stop using the antibiotic even if you start to feel better. This information is not intended to replace advice given to you by your health care provider. Make sure you discuss any questions you have with your health care provider. Document Revised: 11/03/2021 Document Reviewed: 11/03/2021 [employer] Patient Education ? 2023 [employer].[facility] 05-27-2024 Hospital Discharge instructions Patient Education 05/27/2024 13:56:47 BMI for Adults BMI for Adults Body mass index (BMI) is a number found using a person's weight and height. BMI can help tell how much of a person's weight is made up of fat. BMI does not measure body fat directly. It is used instead of tests that directly measure body fat, which can be difficult and expensive. What are BMI measurements used for? BMI is useful to: Find out if your weight puts you at higher risk for medical problems. Help recommend changes, such as in diet and exercise. This can help you reach a healthy weight. BMIscreening can be done again to see if these changes are working. How is BMI calculated? Your height and weight are measured. The BMI is found from those numbers. This can be done with U.S. or metric measurements. Note that charts and online BMI calculators are available to help you findyour BMI quickly and easily without doing these calculations. To calculate your BMI in U.S. measurements: 1.Measure your weight in pounds (lb). 2.Multiply the number of pounds by 703. So, for an adult who weighs 150 lb, multiply that number by 703: 150 x 703, which equals 105,450. 3.Measure your height in inches. Then multiply that number by itself to get a measurement called inches squared. So, for an adult who is 70 inches tall, the inches squared measurement is 70 inches x 70 inches, which equals 4,900 inches squared. 4.Divide the total from step 2 (number of lb x 703) by the total from step 3 (inches squared): 105,450 4,900 = 21.5. This is your BMI. To calculate your BMI in metric measurements: 1.Measure your weight in kilograms (kg). For this example, the weight is 70 kg. 2.Measure your height in meters (m). Then multiply that number by itself to get a measurement called meters squared. So, for an adult who is 1.75 m tall, the meters squared measurement is 1.75 m x 1.75 m, which equals 3.1 meters squared. 3.Divide the number of kilograms (your weight) by the meters squared number. In this example: 70 3.1 = 22.6. This is your BMI. What do the results mean? BMI charts are used to see if you are underweight, normal weight, overweight, or obese. The following guidelines will be used: Underweight: BMI less than 18.5. Normal weight: BMI between 18.5 and 24.9. Overweight: BMI between 25 and 29.9. Obese: BMI of 30 or above. BMI is a tool and cannot diagnose a condition. Talk with your health care provider about what your BMI means for you. Keep these notes in mind: Weight includes fat and muscle. Someone with a muscular build, such as an athlete, may have a BMI that is higher than 24.9. In cases like these, BMI is not a correct measure of body fat. If you have a BMI of 25 or higher, your provider may need to do more testing to find out if excess body fat is the cause. BMI is measured the same way for males and females. Females usually have more body fat than males of the same height and weight. Where to find more information For more information about BMI, including tools to quickly find your BMI, go to: Centers for Disease Control and Prevention: cdc.gov [place] [employer]: heart.org National Heart, Lung, and Blood [place]: nhlbi.nih.gov This information is not intended to replace advice given to you by your health care provider. Make sure you discuss any questions you have with your health care provider. Document Revised: 05/11/2023 Document Reviewed: 05/04/2023 [employer] Patient Education 2023 [employer] 05/27/2024 13:56:37 Otitis Media, Adult, Iwqn-uz-Ogxk Otitis Media, Adult Otitis media is a condition in which the middle ear is red and swollen (inflamed) and full of fluid. The middle ear is the part of the ear that contains bones for hearing as well as air that helps send sounds to the brain. The condition usually goes away on its own. What are the causes? This condition is caused by a blockage in the eustachian tube. This tube connects the middle ear tothe back of the nose. It normally allows air into the middle ear. The blockage is caused by fluid or swelling. Problems that can cause blockage include: A cold or infection that affects the nose, mouth, or throat. Allergies. An irritant, such as tobacco smoke. Adenoids that have become large. The adenoids are soft tissue located in the back of the throat, behind the nose and the roof of the mouth. Growth or swelling in the upper part of the throat, just behind the nose (nasopharynx). Damage to the ear caused by a change in pressure. This is called barotrauma. What increases the risk? You are more likely to develop this condition if you: Smoke or are exposed to tobacco smoke. Have an opening in the roof of your mouth (cleft palate). Have acid reflux. Have problems in your body's defense system (immune system). What are the signs or symptoms? Symptoms of this condition include: Ear pain. Fever. Problems with hearing. Being tired. Fluid leaking from the ear. Ringing in the ear. How is this treated? This condition can go away on its own within 3 5 days. But if the condition is caused by germs (bacteria) and does not go away on its own, or if it keeps coming back, your doctor may: Give you antibiotic medicines. Give you medicines for pain. Follow these instructions at home: Take bpjp-rap-gwgwbju and prescription medicines only as told by your doctor. If you were prescribed an antibiotic medicine, take it as told by your doctor. Do not stop taking it even if you start to feel better. Keep all follow-up visits. Contact a doctor if: You have bleeding from your nose. There is a lump on your neck. You are not feeling better in 5 days. You feel worse instead of better. Get help right away if: You have pain that is not helped with medicine. You have swelling, redness, or pain around your ear. You get a stiff neck. You cannot move part of your face (paralysis). You notice that the bone behind your ear hurts when you touch it. You get a very bad headache. Summary Otitis media means that the middle ear is red, swollen, and full of fluid. This condition usually goes away on its own. If the problem does not go away, treatment may be needed. You may be given medicines to treat the infection or to treat your pain. If you were prescribed an antibiotic medicine, take it as told by your doctor. Do not stop taking it even if you start to feel better. Keep all follow-up visits. This information is not intended to replace advice given to you by your health care provider. Make sure you discuss any questions you have with your health care provider. Document Revised: 11/29/2021 Document Reviewed: 11/29/2021 [employer] Patient Education 2023 [employer]. 05/27/2024 13:56:30 Ear Drops, Adult, Ioso-vk-Rbau Ear Drops, Adult Your doctor has found that you have a condition that requires you to use ear drops. Ear drops are amedicine that is placed in the ear. You may need to use ear drops in one ear or both ears. The following information offers guidance on how to use your ear drops. Your doctor may also give you more instructions. Supplies needed: Cotton balls. Ear drops. How to put ear drops into your ear 1.Wash your hands with soap and water for at least 20 seconds. If you cannot use soap and water, use hand sharepoint administrator. 2.Make sure your ears are clean and dry. 3.If there is earwax or fluid at the outer part of the ear canal, wipe it out gently with a cotton-tipped swab. 4.Warm the medicine by holding it in your hand for a few minutes. 5.Shake the medicine gently to mix the ear drops. 6.Use the dropper to draw up the ear drops. You will need to squeeze the round part of the dropper to do this. 7.Put the drops in your ear as told. Hold the dropper above your ear. Do not let the dropper touch your ear. The medicine may go in more easily if you pull the flap of your ear up and back while you put the drops in. 8.To make sure your ear soaks up the medicine, do one of these things: Lie down for 10 minutes. The ear with the medicine in it should face up. This will cause the drops to stay in the ear canal and fill the canal. Put a cotton ball in your ear. Do not push it deeper into your ear. Take out the cotton ball when the drops have been soaked up or after 15 30 minutes have passed. 9.If you need to put drops in your other ear, repeat the same steps. Your doctor will tell you if you should put drops in both ears. 10.Wash your hands with soap and water for at least 20 seconds after using ear drops. If you cannotuse soap and water, use hand sharepoint administrator. Follow these instructions at home: Use the ear drops for as long as your doctor tells you to. Do not stop using them even if you startto feel better. Always wash your hands for at least 20 seconds before and after handling the ear drops. Keep the ear drops at room temperature. Do not wash out your ears unless told to by your doctor. Contact a doctor if: Your condition gets worse. Your pain or itching gets worse. Unusual fluid is coming from your ear, especially if the fluid smells bad. You have new trouble hearing. You get a rash around your ear. You have used the ear drops for the amount of time told by your doctor, but you do not feel better. Get help right away if: You feel like the room is spinning and you feel like you might vomit. This condition is called vertigo. The outside of your ear becomes red or swollen. You have a very bad headache with or without a stiff neck. This information is not intended to replace advice given to you by your health care provider. Make sure you discuss any questions you have with your health care provider. Document Revised: 01/24/2023 Document Reviewed: 01/02/2023 [employer] Patient Education 2023 [employer]. Follow Up Care 05/27/2024 12:39:57 With:Wilmar PIERCE, DIANA Alejandre Address:Unknown When: Unknown [facility] 09-23-2024 NotePatient Education Caregiving Ear Drops, Adult Your doctor has found that you have a condition that requires you to use ear drops. Ear drops are amedicine that is placed in the ear. You may need to use ear drops in one ear or both ears. The following information offers guidance on how to use your ear drops. Your doctor may also give you more instructions. Supplies needed: ? Cotton balls. ? Ear drops. How to put ear drops into your ear 1. Wash your hands with soap and water for at least 20 seconds. If you cannot use soap and water, use hand sharepoint administrator. 2. Make sure your ears are clean and dry. 3. If there is earwax or fluid at the outer part of the ear canal, wipe it out gently with a cotton-tipped swab. 4. Warm the medicine by holding it in your hand for a few minutes. 5. Shake the medicine gently to mix the ear drops. 6. Use the dropper to draw up the ear drops. You will need to squeeze the round part of the dropperto do this. 7. Put the drops in your ear as told. Hold the dropper above your ear. Do not let the dropper touchyour ear. The medicine may go in more easily if you pull the flap of your ear up and back while youput the drops in. 8. To make sure your ear soaks up the medicine, do one of these things: ? Lie down for 10 minutes. The ear with the medicine in it should face up. This will cause the drops to stay in the ear canal and fill the canal. ? Put a cotton ball in your ear. Do not push it deeper into your ear. Take out the cotton ball whenthe drops have been soaked up or after 15?30 minutes have passed. 9. If you need to put drops in your other ear, repeat the same steps. Your doctor will tell you if you should put drops in both ears. 10. Wash your hands with soap and water for at least 20 seconds after using ear drops. If you cannot use soap and water, use hand sharepoint administrator. Follow these instructions at home: ? Use the ear drops for as long as your doctor tells you to. Do not stop using them even if you start to feel better. ? Always wash your hands for at least 20 seconds before and after handling the ear drops. ? Keep the ear drops at room temperature. ? Do not wash out your ears unless told to by your doctor. Contact a doctor if: ? Your condition gets worse. ? Your pain or itching gets worse. ? Unusual fluid is coming from your ear, especially if the fluid smells bad. ? You have new trouble hearing. ? You get a rash around your ear. ? You have used the ear drops for the amount of time told by your doctor, but you do not feel better. Get help right away if: ? You feel like the room is spinning and you feel like you might vomit. This condition is called vertigo. ? The outside of your ear becomes red or swollen. ? You have a very bad headache with or without a stiff neck. This information is not intended to replace advice given to you by your health care provider. Make sure you discuss any questions you have with your health care provider. Document Revised: 01/24/2023 Document Reviewed: 01/02/2023 [employer] Patient Education ? 2023 [employer]. ENT Otitis Media, Adult Otitis media is a condition in which the middle ear is red and swollen (inflamed) and full of fluid. The middle ear is the part of the ear that contains bones for hearing as well as air that helps send sounds to the brain. The condition usually goes away on its own. What are the causes? This condition is caused by a blockage in the eustachian tube. This tube connects the middle ear tothe back of the nose. It normally allows air into the middle ear. The blockage is caused by fluid or swelling. Problems that can cause blockage include: ? A cold or infection that affects the nose, mouth, or throat. ? Allergies. ? An irritant, such as tobacco smoke. ? Adenoids that have become large. The adenoids are soft tissue located in the back of the throat, behind the nose and the roof of the mouth. ? Growth or swelling in the upper part of the throat, just behind the nose (nasopharynx). ? Damage to the ear caused by a change in pressure. This is called barotrauma. What increases the risk? You are more likely to develop this condition if you: ? Smoke or are exposed to tobacco smoke. ? Have an opening in the roof of your mouth (cleft palate). ? Have acid reflux. ? Have problems in your body's defense system (immune system). What are the signs or symptoms? Symptoms of this condition include: ? Ear pain. ? Fever. ? Problems with hearing. ? Being tired. ? Fluid leaking from the ear. ? Ringing in the ear. How is this treated? This condition can go away on its own within 3?5 days. But if the condition is caused by germs (bacteria) and does not go away on its own, or if it keeps coming back, your doctor may: ? Give you antibiotic medicines. ? Give you medicines for pain. Follow these instructions at home: (more content not included)...[facility]06-14-2024 Telephone encounter Note* Telephone Encounter - Ines Watts LPN - 02/16/2024 4:12 PM EDT Nurse called patient no answer message left to call office. Ines Watts LPN February 16, 2024 4:14 PM [facility]06-14-2024 Miscellaneous Notes* Telephone Encounter - Ines Watts LPN - 02/16/2024 4:12 PM EDT Nurse called patient no answer message left to call office. Ines Watts LPN February 16, 2024 4:14 PM * Telephone Encounter - Ines Watts LPN - 02/13/2024 9:[address] Almazan patient called into the office today and requesting a new order for a colonoscopy, due toher not being able to complete the last one. Patient also requesting a different prep she states that she could not drink all the liquid due to her being small. Please advise Ines Watts LPN February 13, 2024 9:34 AM * Telephone Encounter - Mirna Melendez - 02/13/2024 9:12 AM EDT Sherie is calling Abner Almazan MD today to request order for another colonoscopy , as she was not able to complete the other one. Also asking for different prep, as she is tiny and could not drink all of the liquid required the last time. Please return call once entered. No chief complaint on file. Patient has been identified by name and birthdate. Duration of symptoms: N/A Person calling: self Call patient at: on cell [phone] (home) [phone] (cell) Was an appointment scheduled: No Closing statement: Symptom Call: Thank you for calling [facility], your call is very important. A nurse will call in approximately 2-4 hours during business hours. If this is an emergency, please contact 911. Mirna Melendez [facility] Instructions* Patient Instructions* Abner Almazan MD - 02/16/2024 2:47 PM EDT Images from the original note were not included. Bowel Preparation Instructions for: CLENPIQ IF YOU DO NOT FOLLOW THESE DIRECTIONS, YOUR COLONOSCOPY WILL BE CANCELLED. Floyd Instructions: Your bowel must be empty so that your doctor can clearly view your colon. Follow all of the instructions in this handout EXACTLY as they are written. Do NOT eat any solid food the ENTIRE day before your colonoscopy. Buy your bowel preparation at least 5 days before your colonoscopy. TRANSPORTATION on the Day of Your Exam A responsible adult MUST be present with you at Check In prior to your colonoscopy and REMAIN in the endoscopy area until you are discharged. You are NOT ALLOWED to drive, take a taxi or bus, or leave the Endoscopy Center ALONE. If you do not have a responsible local city driver (family member or friend) withyou to take you home, your exam cannot be done with sedation and will be cancelled. Please bring a list of all of your current medications, including any Over-the Counter medications with you. Medications If you take insulin, diabetic medications or blood thinners such as Coumadin (warfarin), Plavix (clopidogrel), Ticlid (ticlopidine hydrochloride), Agrylin (anagrelide), Xarelto (Rivaroxaban), Pradaxa(Dabigatran), Eliquis (Apixaban), and Effient (Prasugrel). You MUST call the doctors who orders those medicines for instructions on altering the dosage before your colonoscopy. All other medications should be taken the day of the exam with a sip of water including ASPIRIN. Five (5) Days Before Your Colonoscopy Do NOT take medicines that stop diarrhea - such as Imodium, Kaopectate, or Pepto Bismol. Do NOT take fiber supplements - such as Metamucil, Citrucel, or Perdiem. Do NOT take products that contain iron - such as multi-vitamins (the label lists what is in the products). Three (3) Days Before Your Colonoscopy Do NOT eat high-fiber foods - such as popcorn, beans, seeds (flax, sunflower, quinoa), multigrain bread, nuts, salad/vegetables, or fresh and dried fruit. 1 08/2019 Bowel Preparation Instructions for: CLENPIQ One (1) Day Before Your Colonoscopy Only drink clear liquids the ENTIRE DAY before your colonoscopy. Do NOT eat any solid foods. Drink at least 8 ounces of clear liquids every hour after waking up. The clear liquids you can drink include: Clear Liquid (NO RED LIQUIDS) DO NOT DRINK Gatorade, Pedialyte or Powerade Clear broth or bouillon Coffee or tea (no milk or non-dairy creamer) Carbonated and non-carbonated soft drinks Simeon-Aid or other fruit flavored drinks Strained fruit juices (no pulp) Jell-O, popsicles, hard candy Water Alcohol Milk or non-dairy creamers Noodles or vegetables in soup Juice with pulp Liquid you cannot see through Do not use tobacco/vaping products The bowel preparation solution will be consumed in two parts. Part 1 6 PM - Evening before your colonoscopy Drink one bottle of CLENPIQ. Over the next 5 hours, drink at least 5 cups (8 oz. Each) of clear liquid, at your own pace. You may continue to drink clear liquids until midnight. Part 2 4 1/2 hours before your colonoscopy Drink the bottle of CLENPIQ, then drink one cup (8 oz. Each) of clear liquid, every 15 minutes for at least 4 cups. You may continue to drink clear liquids up to (three) 3 hours before your exam. 2 08/2019 [facility] Telephone encounter Note * Telephone Encounter - Ines Watts LPN - 02/13/2024 9:[address] Almazan patient called into the office today and requesting a new order for a colonoscopy, due toher not being able to complete the last one. Patient also requesting a different prep she states that she could not drink all the liquid due to her being small. Please advise Ines Watts LPN February 13, 2024 9:34 AM [facility]06-11-2024 Telephone encounter Note* Telephone Encounter - Mirna Melendez - 02/13/2024 9:12 AM EDT Sherie is calling Abner Almazan MD today to request order for another colonoscopy , as she was not able to complete the other one. Also asking for different prep, as she is tiny and could not drink all of the liquid required the last time. Please return call once entered. No chief complaint on file. Patient has been identified by name and birthdate. Duration of symptoms: N/A Person calling: self Call patient at: on cell [phone] (home) [phone] (cell) Was an appointment scheduled: No Closing statement: Symptom Call: Thank you for calling [facility], your call is very important. A nurse will call in approximately 2-4 hours during business hours. If this is an emergency, please contact 911. Mirna Melendez [facility]03-29-2024 Evaluation + Plan note Future Scheduled Tests Radiology* MRI Breast w/o and w/ Contrast, Bilat 12/01/23 [facility] General Surgery [place] [id number] Nurse Note* Gunjan Reid RN - 10/23/2023 1:29 PM EST AMBULATORY PATIENT EDUCATION NOTE TOPIC: GI PROCEDURES: Colonoscopy with or without biopsies based on clinical findings Esophagogastroduodenoscopy(EGD) with or without biopies based on clinical findings, removal of polyps or lesions READINESS TO LEARN INSTRUCTION PROVIDED TO: Patient and family member COGNITIVE ABILITY: Alert and oriented PTED MOTIVATION TO LEARN: Interested FAMILY SUPPORT: High - Very involved in pt care IPATIENT LEARNS BEST BY: Individual Instruction Written Instruction - Hand-outs Verbal Instruction FACTORS AFFECTING LEARNING: None PHYSICAL LIMITATIONS AFFECTING LEARNING: None LEARNING RESPONSE METHOD OF INSTRUCTION: Individual instruction PATIENT / FAMILY RESPONSE: Verbalizes understanding of: WORSENING CONDITION- Signs and symptoms of aworsening condition that warrant a call to the physician FOLLOW-UP PLAN: Complete - No need for follow-up SUPPLEMENTAL MATERIAL: Procedure Discharge Instructions REFERRAL (RECOMMENDATION): None * Eliza Acosta RN - 10/23/2023 10:43 AM EST PRE OP LEARNING ASSESSMENT PROCEDURE/SURGERY: GI PROCEDURES: Colonoscopy and EGD READINESS TO LEARN COGNITIVE ABILITY: Alert and oriented MOTIVATION TO LEARN: Eager FAMILY SUPPORT: High - Very involved in pt care PATIENT LEARNS BEST BY: Individual Instruction FACTORS AFFECTING LEARNING: None PHYSICAL LIMITATIONS AFFECTING LEARNING: None Electronically Signed By: Eliza Acosta RN In Department: GASTROENTEROLOGY documented in [facility] encounter[facility] NoteQ3 Patient Name: Sherie Rizvi Procedure Date: 10/23/2023 12:17 PM Date of : 2000 Admit Type: Outpatient Age: 23 Gender: Female Note Status: Finalized Attending MD: Gayle Arambula MD, [id number] Procedure: Upper GI endoscopy Indications: Dysphagia Providers: Gayle Arambula MD Referring Physician: Abner Almazan MD (Referring MD) Medicines: General Anesthesia Complications: No immediate complications. Requesting Provider: Procedure: Pre-Anesthesia Assessment: - ASA Grade Assessment: II - A patient with mild systemic disease. After obtaining informed consent, the endoscope was passed under direct vision. Throughout the procedure, the patient's blood pressure, pulse, and oxygen saturations were monitored continuously. The Endoscope was introduced through the mouth, and advanced to the second part of duodenum. The upper GI endoscopy was accomplished without difficulty. The patient tolerated the procedure well. Moderate Sedation: Gen anesthesia Findings: The examined esophagus was normal. This was biopsied with a cold forceps for evaluation of eosinophilic esophagitis. The entire examined stomach was normal. Biopsies were taken with a cold forceps for histology. The examined duodenum was normal. Biopsies for histology were taken with a cold forceps for evaluation of celiac disease. Impression: - Normal esophagus. Biopsied. - Normal stomach. Biopsied. - Normal examined duodenum. Biopsied. Estimated Blood Loss: Estimated blood loss: none. Recommendation: - Patient has a contact number available for emergencies. The signs and symptoms of potential delayed complications were discussed with the patient. Return to normal activities tomorrow. Written discharge instructions were provided to the patient. - Resume previous diet. - Continue present medications. - Await pathology results. Procedure Code(s): --- Professional --- 73715 Diagnosis Code(s): --- Professional --- R13.10 CPT copyright 2020 [employer]. All rights reserved. Attending Participation: I personally performed the entire procedure. Scope In: 12:35:35 PM Scope Out: 12:42:47 PM MD Gayle Sher MD 10/23/2023 12:56:10 PM This report has been signed electronically by Gayle Arambula MD Number of Addenda: 0 Note Initiated On: 10/23/2023 12:17 [facility]02-12-2024 Miscellaneous Notes* Telephone Encounter - Juan Luis Oneil RN - 10/16/2023 12:10 PM EST Attempted to reach the patient at the contact number that they provided [phone] (home) . 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 Failure to have a responsible adult accompany the patient to their procedure appointment prevents the useof sedation or anesthesia for their procedure; and can result in cancellation of the procedure NPO instructions were reviewed. Clear liquids the day before the procedure, stop all liquids 4 hours before the procedure Instructions to contact their primary care provider regarding their medications and which medications to stop in preparation for their procedure Instructions to completely read and follow the written instructions that they recieved regarding their procedure. Number to call with questions or concerns [phone] Number to call to cancel their procedure [phone] Juan Luis Oneil RN documented in [facility] encounter[facility]01-[facility]-2024 NoteHNO ID: [id number] Author: ABNER ALMAZAN MD Service: ? Author Type: Physician Type: Progress Notes Filed: 09/11/2023 12:06 Note Text: NAME: Sherie Rizvi New Patient Zoom Visit AGE: [age] year old I have communicated my name and active licensure. The patient's identity and physical location were verified at the time of this visit. Either the patient or their legal sales representative cash registers has been informed of the risks and benefits of -- and alternatives to -- treatment through a remote evaluation and consents to proceed with the evaluation remotely. Referred by: Levi Johnson MD [id number] [facility] [id number] Referred for: an opinion regarding abdominal pain, constipation, nausea, and vomitting and my final recommendations will be communicated back to the requesting physician by way of letter. GENERAL ROS: Colon polyps: No Colon cancer: No Other cancer: No Radiation / Chemotherapy: No Crohn's disease / Ulcerative colitis: No High cholesterol or triglycerides: No Ulcers: No Gallstones: No Hepatitis / jaundice: No Heart Disease: No Lung Disease: No Liver problems:No Thyroid disease: No Kidney stones: yes Pancreatitis: No Diabetes: No Arthritis: No Rheumatic fever:No Gastrointestinal bleeding: No Depression or other mental illness:Yes, Anxiety Other personal illness:No FAMILY HISTORY: Liver problems: No Colitis: No Colon cancer:No Other cancers: No PAST SURGICAL HISTORY Procedure Laterality Date COLONOSCOPY SCREENING ~12 years old; inflammation found GI SPECIFIC ROS: Difficulty swallowing / foods sticking in throat:Yes Heartburn:No Hoarseness: No Chronic cough: No Regurgitation: No Chest pain: {No Filling up quickly at meals: Yes Loss of appetite:Yes Nausea: No Vomiting: Yes Abdominal pain:Yes Recent change in bowel movements: Yes Bloody or black, bowel movements: No Constipation: Yes Diarrhea: {No Loss of control of bowel movements: No Night sweats, fever, chills: yes Thought or memory problems: No Fluid in abdomen (ascites):Yes Prominent leg swelling:No Vomiting blood: No Recent change in weight: No CURRENT MEDICATIONS: Current Outpatient Medications Medication Sig Drospirenone-Ethinyl Estradiol (YOLIS, 28,) 3-0.02 mg per tablet Take 1 tablet by mouth once daily. LINZESS 145 mcg capsule loratadine (CLARITIN) 10 mg tablet Take 1 tablet by mouth every afternoon. methylphenidate ER 54 mg biphasic tablet 1 TAB PO DAILY. FILL ON OR AFTER 05-23-23 sertraline (ZOLOFT) 100 mg tablet Take 1 tablet by mouth every afternoon. cloNIDine HCl (CATAPRES) 0.3 mg tablet Take 0.6 mg by mouth daily at bedtime. Take 0.6 mg by mouth daily at bedtime. hydrOXYzine HCl (ATARAX) 25 mg tablet No current facility-administered medications for this visit. ALLERGIES: Loperamide PERSONAL HABITS: Tobacco: No Alcohol: No Coffee: No The above documentation completed by Javid Dinero MA I agree with the Chief Complaint, ROS, and Past Histories independently gathered by the clinical operator command support systems and the remaining scribed note accurately describes my personal service to the patient. Abner Almazan MD ------ PRESENTING COMPLAINT AND HISTORY: New consult Abdominal pain History: Patient presents with a history of abdominal pain in March,. She was seen in her local emergency room. At that time she had nephrolithiasis however the CT scan showed haziness of the mesentery consistent with a diagnosis of mesenteric panniculitis. That time she was noted to have longstanding constipation and was prescribed Linzess. No CT scan performed 04/12/2023 was remarkable for: 3 mm distal right ureteral calculus with mild hydronephrosis. There is susi mesentery and multiple borderline mildly enlarged mesenteric and retroperitoneal lymph nodes. Follow-up CT abdomen pelvis performed 07/20/2023 was remarkable for apparent passage of the previously noted distal right ureteral calculus and resolution of previously noted hydronephrosis. Stable appearance of previously noted retroperitoneal mesenteric lymph nodes. There was small amount of free fluid in the pelvis. Of note, mesenteric retroperitoneal fatty tissues are unremarkable without evidence of edema or inflammation or infiltration. Appendix was found to be normal. There was no evidence for diverticulitis or inflammatory bowel disease. Patient en with chronic constipation and bloating with narrow caliber stools. Pain is lower quadrants, or periumbilical area Her appetite is good and her weight is stable. Patient with progressive solid food dysphagia. She requires water to advance food down her esophagus. No dysphagia to liquids. No early satiety. There is no history of nausea, vomiting, heartburn or hematemesis. There is no history of PUD, cholelithiasis, hepatic or pancreatic disease. BM frequen (more content not included)...[facility]12-19-[facility]23 NoteHNO ID: [id number] Author: Levi Johnson MD Service: ? Author Type: Physician Type: Progress Notes Filed: 08/23/2023 3:50 PM Note Text: GENERAL SURGERY NEW PATIENT CONSULTATION HISTORY AND PHYSICAL Date: August 22, 2023 Time: 4:18 PM Name: Sherie Rizvi Ms. Rizvi is here today for my opinion regarding recurrent abdominal pain My final recommendation will be communicated back to the requesting physician by way of shared medical record or letter. HPI: Sherie Rizvi is a 23 year old female with intermittent chronic abdominal pain. Patient has been experiencing abdominal pain that comes and goes. No noticeable triggers. Not associated with eating in particular. Feels constipated much of the time. Feels that stool is skinnier in caliber. Also has significant bloating. Pain is lower quadrants, or periumbilical. Pain is sometimes accompanied by flu-like symptoms, where pt states she has general malaise. No other PMH. Does have constipation at baseline PSH: none EtOH: none currently No smoking, vaping, drugs No previous EGD or colonoscopy PAST MEDICAL HISTORY: PAST MEDICAL HISTORY Diagnosis Date Acute alcoholic gastritis without hemorrhage 03/19/2023 PAST SURGICAL HISTORY: PAST SURGICAL HISTORY Procedure Laterality Date COLONOSCOPY SCREENING ~12 years old; inflammation found FAMILY HISTORY: No family history on file. SOCIAL HISTORY: Social History Tobacco Use Smoking status: Never Smokeless tobacco: Never Vaping Use Vaping Use: Never used Substance Use Topics Alcohol use: Not Currently Drug use: Never MEDICATIONS: Prior to Admission Medications: Drospirenone-Ethinyl Estradiol (YOLIS, 28,) 3-0.02 mg per tablet Take 1 tablet by mouth once daily. LINZESS 145 mcg capsule loratadine (CLARITIN) 10 mg tablet Take 1 tablet by mouth every afternoon. methylphenidate ER 54 mg biphasic tablet 1 TAB PO DAILY. FILL ON OR AFTER 05-23-23 cloNIDine HCl (CATAPRES) 0.3 mg tablet Take 0.6 mg by mouth daily at bedtime. Take 0.6 mg by mouth daily at bedtime. hydrOXYzine HCl (ATARAX) 25 mg tablet sertraline (ZOLOFT) 100 mg tablet Take 1 tablet by mouth every afternoon. No current facility-administered medications for this visit. ALLERGIES: ALLERGIES Allergen Reactions Loperamide Rash REVIEW OF SYSTEMS: GENERAL: no major changes in weight NECK: +LN in bneck RESPIRATORY: Negative for cough, wheezing or shortness of breath. CARDIOVASCULAR: Negative for chest pain, leg swelling or palpitations. GI: see HPI : No history of dysuria, hematuria. Haw had kidney stones before MUSCULOSKELETAL: +arthritis SKIN: Negative for lesions, rash, and itching. PSYCH: +medications for sleep ENDOCRINE: no DM, recent steroids PHYSICAL EXAM: BP 142/88 Pulse 94 Ht 157.5 cm (5' 2.01 ) Wt 57.5 kg (126 lb 11.2 oz) BMI 23.17 kg/m? General appearance: AO, NAD Skin: warm Lungs: bilateral chest rise Heart: RRR Abdomen: soft, +bloating, mild epigastric TTP, no guarding on exam Extremities: Normal exam of the extremities Notes reviewed: Kimberlyn Oh CT scans reviewed: mesenteric lymphadenopathy that appears grossly stable across two scans, small lymph nodes overall IMPRESSION: Patient is a 23yo F with no significant PMH who presents for second opinion regarding mesenteric lymphadenopathy and the need for biopsy. I discussed with her that these findings are nonspecific, and surgical biopsy is not indicated as it is unlikely to be diagnostic, especially in the absence of any other GI workup. Importantly, she has multiple GI complaints (primarily chronic constipation and ongoing bloating) that require further workup regardless. PLAN: Referral to GI, consult order placed Patient understands and agrees with plan Levi Johnson MD Advanced Laparoscopic and Bariatric Surgery cc: Referring provider No referring provider defined for this encounter. Medical Decision Making: Problems: Moderate: 1+ chronic illnesses with change Data: Unique source(s) for external note(s) reviewed: 2 Independent interpretation of test from other physician/QHCP Medical Decision Making Level: 4 - [facility] NoteHNO ID: [id number] Author: Leonie Tiwari MD Service: ? Author Type: Physician Type: Progress Notes Filed: 08/11/2023 6:08 PM Note Text: Sherie Rizvi is a 23 year old female who presents for annual exam and pap smear. HPI: Pt has been on depo-Provera X 5 years. Not seeing any periods. Sexually active. No hx of STDs. She thinks that a CT scan has shown an ovarian cyst, but review of her multiple CT scans does not reveal any cysts. Had one HPV vaccination, but no further doses were given. OB History No obstetric history on file. 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 No pertinent family history. Social History Tobacco Use Smoking status: Never Smokeless tobacco: Never Vaping Use Vaping Use: Never used Substance Use Topics Alcohol use: Not Currently Drug use: Never Current Outpatient Medications Medication Sig Drospirenone-Ethinyl Estradiol (YOLIS, 28,) 3-0.02 mg per tablet Take 1 tablet by mouth once daily. LINZESS 145 mcg capsule loratadine (CLARITIN) 10 mg tablet Take 1 tablet by mouth every afternoon. methylphenidate ER 54 mg biphasic tablet 1 TAB PO DAILY. FILL ON OR AFTER 05-23-23 sertraline (ZOLOFT) 100 mg tablet Take 1 tablet by mouth every afternoon. cloNIDine HCl (CATAPRES) 0.3 mg tablet Take 0.6 mg by mouth daily at bedtime. Take 0.6 mg by mouth daily at bedtime. hydrOXYzine HCl (ATARAX) 25 mg tablet No current facility-administered medications for this visit. Allergies As of Date: 08/11/2023 Allergen Noted Reaction LOPERAMIDE 08/11/2023 Rash Fully Assessed 08/11/2023 REVIEW OF SYSTEMS Abdomen: No bloating, early satiety, indigestion, or increased flatulence. No abdominal pain, nausea, vomiting, diarrhea, or constipation. Bladder: No dysuria, gross hematuria, urinary frequency, urinary urgency, or incontinence. Breast: No breast lumps, nipple d/c, overlying skin changes, redness or skin retraction. Expanded ROS: N/A Allergies and current medication updated:Yes EXAM: BP 130/98 Wt 127 lb 3.3 oz (57.7kg) GENERAL: pleasant, female in no apparent distress HEENT: Normocephalic, atraumatic, mucus membranes moist, and no lesions NECK: Supple, full range of motion, no adenopathy, and thyroid normal DERMATOLOGY: Normal, without lesions, non-icteric, and non-hirsute BREAST: soft, non-tender, symmetric, no dominant mass, normal nipple-areolar complex, no lymphadenopathy, and no nipple discharge CHEST: Normal inspiratory effort ABDOMEN: soft, non-tender, and no masses PELVIC: external genitalia normal, normal Bartholin's glands, urethra, Verlot's glands, no vulvar lesions, no cervical lesions, good vaginal support, physiologic discharge present, normal appearing perineal body and perianal region NEURO: alert and oriented x3,exam grossly non-focal EXTREMITIES: normal ASSESSMENT AND PLAN: Encounter Diagnosis ICD-10-CM 1. Encounter for initial prescription of contraceptive pills Z30.011 Drospirenone-Ethinyl Estradiol (YOLIS, 28,) 3-0.02 mg per tablet 2. HPV vaccine counseling Z71.85 3. Cervical cancer screening Z12.4 PAP TEST 4. Screen for STD (sexually transmitted disease) Z11.3 GONORRHEA/CHLAMYDIA NAAT CANCELED: GONORRHEA/CHLAMYDIA NAAT 1- pap smear done 2- GC/Chlamydia swab done 3- Advised to stop depo-Provera due to its negative effect on bone mass in long-term use. Will start her on Yolis oral contraceptive pills with every two month menstruation. 4- HPV vaccine series initiated. Next in 2 mo and third in 6 months. 5- RTO in 6 mo to follow up on the pill use. I have spent 45 minutes with the patient during history taking, exam, review of chart, documentation in the chart, education, counselling and medical decision making. Leonie Tiwari [facility]11-28-2023 NoteHNO ID: [id number] Author: Pastora Oh MD Service: ? Author Type: Physician Type: Progress Notes Filed: 08/01/2023 2:01 PM Note Text: VIRTUAL VISIT PROGRESS NOTE This is a virtual visit using [employer] [place] Video Visit. It required patient-provider interaction for the medical decision making as documented below. I have communicated my name and active licensure. The patient's identity and physical location were verified at the time of this visit. Either the patient or their legal sales representative cash registers has been informed of the risks and benefits of -- and alternatives to -- treatment through a remote evaluation and consents to proceed with the evaluation remotely. Sherie Rizvi is a 23 year old female seen for follow-up of abdominal CT scan. In April she had a CT of the abdomen which demonstrated haziness to the mesentery. There was also mildly prominent mesenteric lymph nodes. I had her obtain a repeat CT scan on July 17. Overall she is feeling a little better but continues to have abdominal pains. This is worse with activities. She reports flulike symptoms occasionally. She has been eating okay. She reports constipation. She has also noticed enlarged lymph nodes of her neck. Overall she is very concerned that there is something wrong. HISTORY REVIEWED (electronic chart updated): PAST MEDICAL HISTORY Diagnosis Date Acute alcoholic gastritis without hemorrhage 03/19/2023 PAST SURGICAL HISTORY Procedure Laterality Date COLONOSCOPY SCREENING ~12 years old; inflammation found History reviewed. No pertinent family history. Social History Tobacco Use Smoking status: Never Smokeless tobacco: Never Vaping Use Vaping Use: Never used Substance Use Topics Alcohol use: Not Currently Drug use: Never Current Outpatient Medications Medication Sig LINZESS 145 mcg capsule loratadine (CLARITIN) 10 mg tablet Take 1 tablet by mouth every afternoon. medroxyPROGESTERone (DEPO-PROVERA) 150 mg/mL 150 MG EVERY 10 WEEKS methylphenidate ER 54 mg biphasic tablet 1 TAB PO DAILY. FILL ON OR AFTER 05-23-23 sertraline (ZOLOFT) 100 mg tablet Take 1 tablet by mouth every afternoon. cloNIDine HCl (CATAPRES) 0.3 mg tablet Take 0.6 mg by mouth daily at bedtime. Take 0.6 mg by mouth daily at bedtime. hydrOXYzine HCl (ATARAX) 25 mg tablet No current facility-administered medications for this visit. ALLERGIES No Known Allergies PHYSICAL EXAMINATION: VIDEO EXAM: (if completed, performed via video enabled technology) Patient in no apparent distress. ASSESSMENT: (R59.1) Lymphadenopathy (primary encounter diagnosis) PLAN: Sherie presents through a virtual visit in follow-up of her abdominal CT scan. The report was reviewed with Sherie today. The previously seen haziness to the mesentery has resolved. There are small and mildly prominent/enlarged lymph nodes which are stable in appearance. I explained to Sherie that there is no evidence for intra-abdominal pathology that would require further workup or biopsy. She remains very concerned about her symptoms. She is now palpating enlarged lymph nodes of her neck. I have recommended that she follow-up with her primary care physician. I have also recommended she see gastroenterology for her chronic GI complaints. She can reach out to me through [place] if she has further questions or concerns. She is comfortable with this plan. There are no Patient Instructions on file for this visit. I spent a total of 15 minutes on the date of the service which included preparing to see the patient, apgy-cz-scur patient care, and completing clinical documentation Pastora Oh, [facility]11-10-2023 Evaluation + Plan note Extracted from: Title:ED Note Author:Jose Wilkinson DO Date :07/14/23 Acute COVID-19 (U07.1: COVID -19) Orders: acetaminophen, 650 mg = 2 tab(s), Tab, Oral, Once, Stop date 07/14/23 5:35:00 EST, STAT, Start date 07/14/23 5:35:00 EST, 07/14/23 5:35:00 EST ondansetron, 4 mg = 1 tab(s), Oral, q8hr, PRN Nausea/Vomiting, # 20 tab(s), Refills(s) 0, Pharmacy: [facility] #[id number], 158, cm, 01/23/23 22:00:00 EDT, Height/Length Dosing, 57, kg, 01/23/23 22:00:00 EDT, Weight Dosing penicillin V potassium, 500 mg = 1 tab(s), Oral, q6hr, # 40 tab(s), Refills(s) 0, Pharmacy: [facility]/pharm[facility] #[id number], 157.5, cm, 09/29/21 1:19:00 EST, Height/Length Dosing, 56.1, kg, 09/29/21 1:19:00 EST, Weight Dosing Extra Green Li Tube Extra Lav Tube Influenza A&B Ag Mononucleosis [place] [place] Future Appointments Appointment Date:07/17/2023 07:00:00 AM Scheduled Provider: Location:.[facility] Appointment Type:CT Abdomen/Pelvis Combo (FT) Future Scheduled Tests Radiology* CT Abdomen/Pelvis w/ Contrast 07/17/23 [facility]11-10-2023 Hospital Discharge instructions Patient Education 07/14/2023 06:37:01 COVID-19 COVID-19 COVID-19, or coronavirus disease 2019, is an infection that is caused by a new (novel) coronavirus called SARS-CoV-2. COVID-19 can cause many symptoms. In some people, the virus may not cause any symptoms. In others, it may cause mild or severe symptoms. Some people with severe infection develop severe disease. What are the causes? This illness is caused by a virus. The virus may be in the air as tiny specks of fluid (aerosols) or droplets, or it may be on surfaces. You may catch the virus by: Breathing in droplets from an infected person. Droplets can be spread by a person breathing, speaking, singing, coughing, or sneezing. Touching something, like a table or a doorknob, that has virus on it (is contaminated) and then touching your mouth, nose, or eyes. What increases the risk? Risk for infection: You are more likely to get infected with the COVID-19 virus if: You are within 6 ft (1.8 m) of a person with COVID-19 for 15 minutes or longer. You are providing care for a person who is infected with COVID-19. You are in close personal contact with other people. Close personal contact includes hugging, kissing, or sharing eating or drinking utensils. Risk for serious illness caused by COVID-19: You are more likely to get seriously ill from the COVID-19 virus if: You have cancer. You have a long-term (chronic) disease, such as: ?Chronic lung disease. This includes pulmonary embolism, chronic obstructive pulmonary disease, andcystic fibrosis. ?Long-term disease that lowers your body's ability to fight infection (immunocompromise). ?Serious cardiac conditions, such as heart failure, coronary artery disease, or cardiomyopathy. ?Diabetes. ?Chronic kidney disease. ?Liver diseases. These include cirrhosis, nonalcoholic fatty liver disease, alcoholic liver disease, or autoimmune hepatitis. You have obesity. You are or were recently . You have sickle cell disease. What are the signs or symptoms? Symptoms of this condition can range from mild to severe. Symptoms may appear any time from 2 to 14days after being exposed to the virus. They include: Fever or chills. Shortness of breath or trouble breathing. Feeling tired or very tired. Headaches, body aches, or muscle aches. Runny or stuffy nose, sneezing, coughing, or sore throat. New loss of taste or smell. This is rare. Some people may also have stomach problems, such as nausea, vomiting, or diarrhea. Other people may not have any symptoms of COVID-19. How is this diagnosed? This condition may be diagnosed by testing samples to check for the COVID-19 virus. The most commontests are the PCR test and the antigen test. Tests may be done in the lab or at home. They include: Using a swab to take a sample of fluid from the back of your nose and throat (nasopharyngeal fluid), from your nose, or from your throat. Testing a sample of saliva from your mouth. Testing a sample of coughed-up mucus from your lungs (sputum). How is this treated? Treatment for COVID-19 infection depends on the severity of the condition. Mild symptoms can be managed at home with rest, fluids, and arru-sto-mfjspfa medicines. Serious symptoms may be treated in a hospital intensive care unit (ICU). Treatment in the ICU may include: ?Supplemental oxygen. Extra oxygen is given through a tube in the nose, a face mask, or a henry. ?Medicines. These may include: ?Antivirals, such as monoclonal antibodies. These help your body fight off certain viruses that cancause disease. ?Anti-inflammatories, such as corticosteroids. These reduce inflammation and suppress the immune system. ?Antithrombotics. These prevent or treat blood clots, if they develop. ?Convalescent plasma. This helps boost your immune system, if you have an underlying immunosuppressive condition or are getting immunosuppressive treatments. ?Prone positioning. This means you will lie on your stomach. This helps oxygen to get into your lungs. ?Infection control measures. If you are at risk for more serious illness caused by COVID-19, your health care provider may prescribe two long-acting monoclonal antibodies, given together every 6 months. How is this prevented? To protect yourself: Use preventive medicine (pre-exposure prophylaxis). You may get pre-exposure prophylaxis if you have moderate or severe immunocompromise. Get vaccinated. Anyone 6 months old or older who meets guidelines can get a COVID-19 vaccine or vaccine series. This includes people who are or making breast milk (lactating). Get an added dose of COVID-19 vaccine after your first vaccine or vaccine series if you have moderate to severe immunocompromise. This applies if you have had a solid organ transplant or have been diagnosed with an immunocompromising condition. ?You should get the added dose 4 weeks after you got the first COVID-19 vaccine or vaccine series. ?If you get an mRNA vaccine, you will need a 3-dose primary series. ?If you get the J&J/Kandcae vaccine, you will need a 2-dose primary series, with the second dose being an mRNA vaccine. Talk to your health care provider about getting experimental monoclonal antibodies. This treatment is approved under emergency use authorization to prevent severe illness before or after being exposed to the COVID-19 virus. You may be given monoclonal antibodies if: ?You have moderate or severe immunocompromise. This includes treatments that lower your immune response. People with immunocompromise may not develop protection against COVID-19 when they are vaccinated. ?You cannot be vaccinated. You may not get a vaccine if you have a severe allergic reaction to the vaccine or its components. ?You are not fully vaccinated. ?You are in a facility where COVID-19 is present and: ?Are in close contact with a person who is infected with the COVID-19 virus. ?Are at high risk of being exposed to the COVID-19 virus. ?You are at risk of illness from new variants of the COVID-19 virus. To protect others: If you have symptoms of COVID-19, take steps to prevent the virus from spreading to others. Stay home. Leave your house only to get medical care. Do not use public transit, if possible. Do not travel while you are sick. Wash your hands often with soap and water for at least 20 seconds. If soap and water are not available, use alcohol-based hand sharepoint administrator. Make sure that all people in your household wash their hands well and often. Cough or sneeze into a tissue or your sleeve or elbow. Do not cough or sneeze into your hand or into the air. Where to find more information Centers for Disease Control and Prevention: www.cdc.gov/coronavirus World Health Organization: www.who.int/health-topics/coronavirus Get help right away if: You have trouble breathing. You have pain or pressure in your chest. You are confused. You have bluish lips and fingernails. You have trouble waking from sleep. You have symptoms that get worse. These symptoms may be an emergency. Get help right away. Call 911. Do not wait to see if the symptoms will go away. Do not drive yourself to the hospital. Summary COVID-19 is an infection that is caused by a new coronavirus. Sometimes, there are no symptoms. Other times, symptoms range from mild to severe. Some people witha severe COVID-19 infection develop severe disease. The virus that causes COVID-19 can spread from person to person through droplets or aerosols from breathing, speaking, singing, coughing, or sneezing. Mild symptoms of COVID-19 can be managed at home with rest, fluids, and vzak-vwl-spymcab medicines. This information is not intended to replace advice given to you by your health care provider. Make sure you discuss any questions you have with your health care provider. Document Revised: 08/11/2022 Document Reviewed: 08/11/2022 [employer] Patient Education 2022 [employer]. Follow Up Care 07/14/2023 05:18:44 With:Jenn Urban Address: [address] [place] [address]. [address] [address] Business (1) When:Within 3 Day(s) [facility]11-10-2023 NoteInfectious Disease COVID-19 COVID-19, or coronavirus disease 2019, is an infection that is caused by a new (novel) coronavirus called SARS-CoV-2. COVID-19 can cause many symptoms. In some people, the virus may not cause any symptoms. In others, it may cause mild or severe symptoms. Some people with severe infection develop severe disease. What are the causes? This illness is caused by a virus. The virus may be in the air as tiny specks of fluid (aerosols) or droplets, or it may be on surfaces. You may catch the virus by: ? Breathing in droplets from an infected person. Droplets can be spread by a person breathing, speaking, singing, coughing, or sneezing. ? Touching something, like a table or a doorknob, that has virus on it (is contaminated) and then touching your mouth, nose, or eyes. What increases the risk? Risk for infection: You are more likely to get infected with the COVID-19 virus if: ? You are within 6 ft (1.8 m) of a person with COVID-19 for 15 minutes or longer. ? You are providing care for a person who is infected with COVID-19. ? You are in close personal contact with other people. Close personal contact includes hugging, kissing, or sharing eating or drinking utensils. Risk for serious illness caused by COVID-19: You are more likely to get seriously ill from the COVID-19 virus if: ? You have cancer. ? You have a long-term (chronic) disease, such as: ? Chronic lung disease. This includes pulmonary embolism, chronic obstructive pulmonary disease, and cystic fibrosis. ? Long-term disease that lowers your body's ability to fight infection (immunocompromise). ? Serious cardiac conditions, such as heart failure, coronary artery disease, or cardiomyopathy. ? Diabetes. ? Chronic kidney disease. ? Liver diseases. These include cirrhosis, nonalcoholic fatty liver disease, alcoholic liver disease, or autoimmune hepatitis. ? You have obesity. ? You are or were recently . ? You have sickle cell disease. What are the signs or symptoms? Symptoms of this condition can range from mild to severe. Symptoms may appear any time from 2 to 14days after being exposed to the virus. They include: ? Fever or chills. ? Shortness of breath or trouble breathing. ? Feeling tired or very tired. ? Headaches, body aches, or muscle aches. ? Runny or stuffy nose, sneezing, coughing, or sore throat. ? New loss of taste or smell. This is rare. Some people may also have stomach problems, such as nausea, vomiting, or diarrhea. Other people may not have any symptoms of COVID-19. How is this diagnosed? This condition may be diagnosed by testing samples to check for the COVID-19 virus. The most commontests are the PCR test and the antigen test. Tests may be done in the lab or at home. They include: ? Using a swab to take a sample of fluid from the back of your nose and throat (nasopharyngeal fluid), from your nose, or from your throat. ? Testing a sample of saliva from your mouth. ? Testing a sample of coughed-up mucus from your lungs (sputum). How is this treated? Treatment for COVID-19 infection depends on the severity of the condition. ? Mild symptoms can be managed at home with rest, fluids, and prdr-wrd-eeltmnb medicines. ? Serious symptoms may be treated in a hospital intensive care unit (ICU). Treatment in the ICU mayinclude: ? Supplemental oxygen. Extra oxygen is given through a tube in the nose, a face mask, or a henry. ? Medicines. These may include: ? Antivirals, such as monoclonal antibodies. These help your body fight off certain viruses that can cause disease. ? Anti-inflammatories, such as corticosteroids. These reduce inflammation and suppress the immune system. ? Antithrombotics. These prevent or treat blood clots, if they develop. ? Convalescent plasma. This helps boost your immune system, if you have an underlying immunosuppressive condition or are getting immunosuppressive treatments. ? Prone positioning. This means you will lie on your stomach. This helps oxygen to get into your lungs. ? Infection control measures. If you are at risk for more serious illness caused by COVID-19, your health care provider may prescribe two long-acting monoclonal antibodies, given together every 6 months. How is this prevented? To protect yourself: ? Use preventive medicine (pre-exposure prophylaxis). You may get pre-exposure prophylaxis if you have moderate or severe immunocompromise. ? Get vaccinated. Anyone 6 months old or older who meets guidelines can get a COVID-19 vaccine or vaccine series. This includes people who are or making breast milk (lactating). ? Get an added dose of COVID-19 vaccine after your first vaccine or vaccine series if you have moderate to severe immunocompromise. This applies if you have had a solid organ transplant or have been diagnosed with an immunocompromising condition. ? You should (more content not included)...[facility]10-19-2023 Miscellaneous Notes* Telephone Encounter - Jonna Montes RN - 06/22/2023 3:58 PM EDT Spoke with patient and advised of information per MD. Patient verbalized understanding. She states she is trying to get her CT authorized and is waiting for a call back from her insuranceto clear up some insurance issues first. Provided central scheduling phone number since she states she may have the CT done at a [facility] facility. No further questions at this time. Advised to call if any future problems or concerns. Encounter closed. * Telephone Encounter - Pastora Oh MD - 06/22/2023 3:52 PM EDT I still recommend a repeat CT scan to see if there is something that can be biopsied. * Telephone Encounter - Jonna Montes RN - 06/22/2023 1:36 PM EDT Call from patient. She was seen in office yesterday by Dr Oh for consult of abdominal pain/ abnormal CT. She states that she found some more information on her Mychart records from [facility] in [place]. She said she had a CT done in January 24 in 2022 done with IV contrast. She states that she had small non specific retroperitoneal/mesenteric lymph nodes noted at that time. She states that she did not know that this was found last January. She is wanted to let Dr Oh know and wondered if this would change her plan of care. hSerie says she is very worried about this and is so concerned about the way she is feeling withtiredness/ fatigue, stomach pain to lower abdomen both to right and left sides- feels pressure-liketight ness, nausea, aches and pains all over and chills. States I feel flu like all the time . States Something is not right . States her abdomen is so bloated and she gets constipated quite a bit. No mention of losing weight. She is wondering why she is not having biopsy done . She verbalizes concern because she has not been feeling well for so long. She is worried that nobody is taking me seriously . She verbalizes a lot of concern that this could potentially be cancer. Verbalizes that she would like to have a biopsy. She verbalized I felt I did not say what I really wanted to in the office yesterday and I felt afraid to speak up but I have been feeling so sick and this is really taking a toll on me and am a bitdisappointed having to wait She verbalizes that she is willing to travel further if needed to see someone like a specialist for a biopsy if I have to She states that this is also giving her a lot of mental anxiety as well as taking a physical toll Advised her to call Raulito Emmanuel to get her follow up CT scheduled for July recommended per Dr Oh yesterday. Patient verbalized that she will. Patient very pleasant but worried. Would like a call back for any further recommendation. [phone] (cell) [facility] History of Present illness Narrative* Pastora Oh MD - 06/22/2023 1:22 PM EDT General Surgery New Patient H&P PATIENT NAME: Sherie Rizvi Assessment ASSESSMENT/PLAN: (R93.5) Abnormal CT of the abdomen (primary encounter diagnosis) (K65.9) Infection in abdomen (HCC) Sherie presents with an abnormal CT scan. This demonstrates haziness to the mesentery. I discussed with Sherie and her friend these findings. Recommendation for management of mesenteric panniculitis is to repeat the CT scan in 3 months to see whether the haziness persists. There is a very low risk that this may be a malignancy. Our plan is for her to obtain the CT scan in July. We will follow-up through telephone/virtual visit. She is comfortable with this plan. I do not recommend surgical biopsy at this time without a repeat CT scan. Office Visit on 06/21/23 CT ABD/PEL W IVCON LINZESS 145 mcg capsule loratadine (CLARITIN) 10 mg tablet medroxyPROGESTERone (DEPO-PROVERA) 150 mg/mL methylphenidate ER 54 mg biphasic tablet sertraline (ZOLOFT) 100 mg tablet cloNIDine HCl (CATAPRES) 0.3 mg tablet hydrOXYzine HCl (ATARAX) 25 mg tablet iv contrast (will be provided with radiology test) enteric contrast (will be provided with radiology test) SUBJECTIVE CHIEF COMPLAINT: Patient presents with: Consult: Lower abdominal pains INTERVAL HISTORY OF PRESENT ILLNESS: Sherie is a 22-year-old female who 3 months ago presented tot ER with abdominal pain. This was thought to be due to kidney stones however CT scan showed haziness to the mesentery. 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 She was referred for surgical evaluation. She does report longstanding constipation for which she was recently prescribed Linzess.Recently she has been reporting flulike symptoms including achiness and hot/cold spells. This occurs 2-3 times per week and will last throughout the day. She reports nausea. She denies weight loss. The symptoms have been occurring over the past 1 or 2 months. HISTORIES: PAST MEDICAL HISTORY Diagnosis Date Acute alcoholic gastritis without hemorrhage 03/19/2023 PAST SURGICAL HISTORY Procedure Laterality Date COLONOSCOPY SCREENING ~12 years old; inflammation found ALLERGIES: Patient has no known allergies. MEDICATIONS: Current Outpatient Medications Medication Sig LINZESS 145 mcg capsule loratadine (CLARITIN) 10 mg tablet Take 1 tablet by mouth every afternoon. medroxyPROGESTERone (DEPO-PROVERA) 150 mg/mL 150 MG EVERY 10 WEEKS methylphenidate ER 54 mg biphasic tablet 1 TAB PO DAILY. FILL ON OR AFTER 05-23-23 sertraline (ZOLOFT) 100 mg tablet Take 1 tablet by mouth every afternoon. cloNIDine HCl (CATAPRES) 0.3 mg tablet Take 0.6 mg by mouth daily at bedtime. Take 0.6 mg by mouth daily at bedtime. hydrOXYzine HCl (ATARAX) 25 mg tablet iv contrast (will be provided with radiology test) CT ABD/PEL -Inject, intravenously, once for 1 dose.No IV access, insert saline lock prior to the beginning of sedation, infusion, injection of imaging exam. Discontinue saline lock post exam. If Pt. has a central line or IVAD, may access for administration according to line specific nursing protocol. Once exam is complete flush line and de-accessaccording to line specific nursing protocol in the CT contrast administration guidelines link. enteric contrast (will be provided with radiology test) For CT ABD/PEL W IVCON Routine order Administer, As Directed One Time Only, via Oral, Rectal, both Oral and Rectal, Enteric Tube, Stoma or Indwelling Catheter, Enteric Contrast as designated per enteric contrast guidelines No current facility-administered medications for this visit. History reviewed. No pertinent family history. Social History Tobacco Use Smoking status: Never Smokeless tobacco: Never Vaping Use Vaping Use: Never used Substance Use Topics Alcohol use: Not Currently Drug use: Never OBJECTIVE PHYSICAL EXAM: BP 142/87 Pulse 78 Ht 5' 2 (1.58m) Wt 120 lb (54.4kg) BMI 21.94 kg/(m^2). General: Well developed, well-nourished, in no distress HEENT: Normocephalic, atraumatic. Extraocular movements intact. Sclera are nonicteric. Heart: Regular rate and rhythm, no murmur Lungs: Clear to auscultation, without wheezes Abdomen: Soft, non tender, positive bowel sounds, no masses, no hernia Rectal: Not evaluated Extremities: No edema Neurologic: Alert, oriented, and appropriate. DATA: Diagnostic tests reviewed for today's visit: CT 04/12/2023 report reviewed: 3 mm distal right ureteral calculus with mild hydronephrosis. There is susi mesentery and multipleborderline mildly enlarged mesenteric and retroperitoneal lymph nodes. Pastora Oh MD [facility] Instructions* Patient Instructions* Pastora Oh MD - 06/21/2023 2:27 PM EDT Obtain the CT scan on or after 07/13. We will set up a Virtual Visit or Telephone follow up. [facility] History of Present illness Narrative* Analilia Bowman, JUAN.ANNE - 06/19/2023 11:00 AM EDT Scheduling: Clinical DDI Triage Patient Name: Sherie Rizvi Patient was verified by: Name/Date of Triage process was used for: patient complaint of RFV NOT LISTED Symptoms: RFV not listed; Consult to general surgery for susi mesentary noted on imaging. Pt states she has some recent nausea and worsening abdominal pain. Imaging not noted in her chart. After discussing with patient and chart review, the patient/project controls scheduler were instructed to schedule with General Surgery Appointment was scheduled with Dr. Adriano Bowman APRN.CNP June 19, 2023 11:00 AM [facility] Evaluation + Plan note Extracted from: Title:ED Note Author:Desean Mayes DO Date :04/12/23 Renal colic on right side (N 23: Unspecified renal colic) Orders: acetaminophen-hydrocodone, 1 EA, Tab, Oral, Once, Stop date 04/12/23 3:26:00 EDT, STAT, Start date 04/12/23 3:26:00 EDT acetaminophen-hydrocodone, 1 tab(s), Oral, q6hr for pain for 3 day(s), 10 tab(s), Refill(s) 0, [id number], 157.4, cm, 04/12/23 2:00:00 EDT, Height/Length Dosing, 56, kg, 04/12/23 2:00:00 EDT, Weight Dosing ondansetron, 4 mg = 1 tab(s), Oral, q8hr, # 12 tab(s), Refills(s) 0, Pharmacy: [id number], 157.4, cm, 04/12/23 2:00:00 EDT, Height/Length Dosing, 56, kg, 04/12/23 2:00:00 EDT, Weight Dosing orphenadrine, 60 mg = 2 mL, Injection, IV Push, Once, Stop date 04/12/23 2:05:00 EDT, STAT, Start date 04/12/23 2:05:00 EDT, 04/12/23 2:05:00 EDT tamsulosin, 0.4 mg = 1 cap(s), Oral, Daily, # 10 cap(s), Refills(s) 0, Pharmacy: [id number], 157.4, cm, 04/12/23 2:00:00 EDT, Height/Length Dosing, 56, kg, 04/12/23 2:00:00 EDT, Weight Dosing Automated Diff Basic Metabolic Panel CBC w/ Auto Diff CT Abdomen/Pelvis w/o Contrast eGFR U Beta Hcg Qual UA With Cult Reflex [facility]08-09-2023 Hospital Discharge instructions Patient Education 04/12/2023 04:17:58 Renal Colic, Qujk-wx-Tcns Renal Colic Renal colic is pain that is caused by a kidney stone. The pain can be sharp and very bad. It may befelt in the back, belly, side (flank), or groin. It can cause nausea. Renal colic can come and go. Follow these instructions at home: Medicines Take bejf-uqs-zmwnhvg and prescription medicines only as told by your doctor. Do not drive or use heavy machinery while taking prescription pain medicine. Eating and drinking Drink enough fluid to keep your pee (urine) pale yellow. You may be told to drink at least 8 10 glasses of water each day. Follow instructions from your doctor. If told, change your diet. This may include eating: ?Less salt (sodium). Eat less than 2 grams (2,000 mg) of salt per day. ?Less meat, poultry, fish, and eggs. ?More fruits and vegetables. ?Try not to eat spinach, rhubarb, sweet potatoes, or nuts. Follow instructions from your doctor about what foods and drinks to avoid. General instructions Keep all follow-up visits as told by your doctor. This is important. Collect pee samples as told by your doctor. Strain your pee every time you pee, as told by your doctor. Use the strainer that your doctor recommends. Do not throw out the kidney stone after passing it. Keep the stone so it can be tested by your doctor. Contact a doctor if: You have a fever or chills. Your pee smells bad or looks cloudy. You have pain or burning when you pee. Get help right away if: The pain in your side (flank) or your groin suddenly gets worse. You get confused. You pass out. Summary Renal colic is pain that is caused by a kidney stone. Take tsui-yot-zxknqer and prescription medicines only as told by your doctor. Drink enough fluid to keep your pee pale yellow. You may be told to drink at least 8 10 glasses of water each day. Follow instructions from your doctor. Strain your pee every time you pee, as told by your doctor. Use the strainer that your doctor recommends. Do not throw out the kidney stone after passing it. Keep the stone so it can be tested by your doctor. This information is not intended to replace advice given to you by your health care provider. Make sure you discuss any questions you have with your health care provider. Document Revised: 04/25/2022 Document Reviewed: 04/25/2022 [employer] Patient Education 2022 [employer]. Follow Up Care 04/12/2023 01:50:41 With:Ky CONNELLY Address: [facility] [address], [place] [address]- Business (1) When:04/15/2023 Comments:Take the Flomax once daily until you have completed the course. You can use the pain medication, nausea medication as prescribed as needed for pain. Please follow-up with your primary care doctor in addition to urology for further evaluation and management. Please return to the ED for any new or wor sening symptoms or With:Jenn Urban Address: [address] [place] [address]. [address] [place] [address]- Business (1) When:04/15/2023 [facility]07-16-2023 Evaluation + Plan noteExtracted from: Title:ED Note Author:Rey Barrera DO Date: Acute alcoholic gastritis (K 29.20: Alcoholic gastritis without bleeding) Orders: famotidine, 20 mg = 2 mL, Soln-IV, IV Push, Once, Stop date 03/19/23 6:56:00 EDT, STAT, Start date 03/19/23 6:56:00 EDT, 03/19/23 6:56:00 EDT ondansetron, 4 mg = 2 mL, Injection, IV Push, Once, Stop date 03/19/23 6:56:00 EDT, STAT, Start date 03/19/23 6:56:00 EDT, 03/19/23 6:56:00 EDT Sodium Chloride 0.9% intravenous solution, 1,000 mL, Soln-IV, IV, Once, Stop date 03/19/23 6:56:00 EDT, STAT, Start date 03/19/23 6:56:00 EDT, Infuse over 61, minute(s) Basic Metabolic Panel Beta hCG Qual CBC w/ Auto Diff ED Cardiac Monitoring Hepatic Function Panel Lipase Level Saline Lock Insert UA With Cult Reflex [facility]07-16-2023 Hospital Discharge instructions Patient Education 03/19/2023 08:36:32 Gastritis, Adult Gastritis, Adult Gastritis is inflammation of the stomach. There are two kinds of gastritis: Acute gastritis. This kind develops suddenly. Chronic gastritis. This kind is much more common. It develops slowly and lasts for a long time. Gastritis happens when the lining of the stomach becomes weak or gets damaged. Without treatment, gastritis can lead to stomach bleeding and ulcers. What are the causes? This condition may be caused by: An infection. Drinking too much alcohol. Certain medicines. These include steroids, antibiotics, and some cupl-anm-golgryd medicines, such as aspirin or ibuprofen. Having too much acid in the stomach. Having a disease of the stomach. Other causes may include: An allergic reaction. Some cancer treatments (radiation). Smoking cigarettes or the use of products that contain nicotine or tobacco. In some cases, the cause of this condition is not known. What increases the risk? Having a disease of the intestines. Having a disease in which the body's immune system attacks the body (autoimmune disease), such as Crohn's disease. Using aspirin or ibuprofen and other NSAIDs to treat other conditions, such as heart disease or chronic pain. Stress. What are the signs or symptoms? Symptoms of this condition include: Pain or a burning sensation in the upper abdomen. Nausea. Vomiting. An uncomfortable feeling of fullness after eating. Weight loss. Bad breath. Blood in your vomit or stool (feces). In some cases, there are no symptoms. How is this diagnosed? This condition may be diagnosed based on your medical history, a physical exam, and tests. Tests may include: Your medical history and a description of your symptoms. A physical exam. Tests. These can include: ?Blood tests. ?Stool tests. ?A test in which a thin, flexible instrument with a light and a camera is passed down the esophagusand into the stomach (upper endoscopy). ?A test in which a tissue sample is removed to look at it under a microscope (biopsy). How is this treated? This condition may be treated with medicines. The medicines that are used vary depending on the cause of the gastritis. If the condition is caused by a bacterial infection, you may be given antibiotic medicines. If the condition is caused by too much acid in the stomach, you may be given medicines called H2 blockers, proton pump inhibitors, or antacids. Treatment may also involve stopping the use of certain medicines such as aspirin or ibuprofen and other NSAIDs. Follow these instructions at home: Medicines Take kgyb-tmh-xxmovod and prescription medicines only as told by your health care provider. If you were prescribed an antibiotic medicine, take it as told by your health care provider. Do notstop taking the antibiotic even if you start to feel better. Alcohol use Do not drink alcohol if: ?Your health care provider tells you not to drink. ?You are , may be , or are planning to become . If you drink alcohol: ?Limit your use to: ?0 1 drink a day for women. ?0 2 drinks a day for men. ?Know how much alcohol is in your drink. In the [place] one drink equals one 12 oz bottle of beer (355 mL), one 5 oz glass of wine (148 mL), or one 1 oz glass of hard liquor (44 mL). General instructions Eat small, frequent meals instead of large meals. Avoid foods and drinks that make your symptoms worse. Talk with your health care provider about ways to manage stress, such as getting regular exercise or practicing deep breathing, meditation, or yoga. Do not use any products that contain nicotine or tobacco. These products include cigarettes, chewing tobacco, and vaping devices, such as e-cigarettes. If you need help quitting, ask your health careprovider. Drink enough fluid to keep your urine pale yellow. Keep all follow-up visits. This is important. Contact a health care provider if: Your symptoms get worse. Your abdominal pain gets worse. Your symptoms return after treatment. You have a fever. Get help right away if: You vomit blood or a substance that looks like coffee grounds. You have black or dark red stools. You are unable to keep fluids down. These symptoms may represent a serious problem that is an emergency. Do not wait to see if the symptoms will go away. Get medical help right away. Call your local emergency services (911 in the [place] Do not drive yourself to the hospital. Summary Gastritis is inflammation of the lining of the stomach that can occur suddenly (acute) or develop slowly over time (chronic). This condition is diagnosed with a medical history, a physical exam, or tests. This condition may be treated with medicines to treat infection or medicines to reduce the amount of acid in your stomach. Follow your health care provider's instructions about taking medicines, making changes to your diet, and knowing when to call for help. This information is not intended to replace advice given to you by your health care provider. Make sure you discuss any questions you have with your health care provider. Document Revised: 12/25/2021 Document Reviewed: 12/25/2021 [employer] Patient Education 2022 [employer] Follow Up Care 03/19/2023 06:39:46 With:Jenn Urban Address: [address] [place] [address]. [address] [place] [id number] [facility] (1) When:03/22/2023 08:34:35 Comments:Call the office of your primary care doctor to arrange for follow-up within the above-stated timeframe. Follow-up with your primary care doctor about this ED visit. You should review your labs, imaging, and diagnoses from this ED visit with your primary care physician. There are occasionally non-emergent findings that require additional follow-up after your ED visit. If you were prescribed medications you should discuss possible side-effects and drug interactions with your pharmacist. Call 911 or go to the nearest Emergency Department if you develop any new or worsening symptoms.Seek immediate medical attention if you develop:worsening abdominal pain, new or worsening nausea, new or worsening vomiting, new or worsening diarrhea, chest pain, shortness of breath, pain with urination, problems urinating, fever, chills, weakness, or any new or worsening symptoms. [facility]03-11-2023 Hospital Discharge instructions Patient Education 11/11/2022 22:54:11 Constipation, Adult, Muxs-vc-Doiu Constipation, Adult Constipation is when a person: Poops (has a bowel movement) fewer times in a week than normal. Has a hard time pooping. Has poop that is dry, hard, or bigger than normal. Follow these instructions at home: Eating and drinking Eat foods that have a lot of fiber, such as: ?Fresh fruits and vegetables. ?Whole grains. ?Beans. Eat less of foods that are high in fat, low in fiber, or overly processed, such as: ?Spanish fries. ?Hamburgers. ?Cookies. ?Candy. ?Soda. Drink enough fluid to keep your pee (urine) clear or pale yellow. General instructions Exercise regularly or as told by your doctor. Go to the restroom when you feel like you need to poop. Do not hold it in. Take hdqy-gfa-pdtcltj and prescription medicines only as told by your doctor. These include any fiber supplements. Do pelvic floor retraining exercises, such as: ?Doing deep breathing while relaxing your lower belly (abdomen). ?Relaxing your pelvic floor while pooping. Watch your condition for any changes. Keep all follow-up visits as told by your doctor. This is important. Contact a doctor if: You have pain that gets worse. You have a fever. You have not pooped for 4 days. You throw up (vomit). You are not hungry. You lose weight. You are bleeding from the anus. You have thin, pencil-like poop (stool). Get help right away if: You have a fever, and your symptoms suddenly get worse. You leak poop or have blood in your poop. Your belly feels hard or bigger than normal (is bloated). You have very bad belly pain. You feel dizzy or you faint. This information is not intended to replace advice given to you by your health care provider. Make sure you discuss any questions you have with your health care provider. Document Released: 02/06/2009 Document Revised: 08/03/2018 Document Reviewed: 02/08/2017 [employer] Patient Education 2020 [employer]. Follow Up Care 11/11/2022 20:55:30 With:Jenn Urban Address: [address] [place] [address] [address] [place] [address] Business (1) When:11/14/2022 Comments:Follow-up with your primary care provider in 3 to 5 days. If symptoms worsen, do not improve, or new symptoms arise please report back to emergency department for further evaluation. [facility]03-10-2023 Hospital Discharge instructions Patient Education 11/11/2022 17:32:24 Kidney Stones, Twao-dd-Buys Kidney Stones Kidney stones are rock-like masses that form inside of the kidneys. Kidneys are organs that make pee (urine). A kidney stone may move into other parts of the urinary tract, including: The tubes that connect the kidneys to the bladder (ureters). The bladder. The tube that carries urine out of the body (urethra). Kidney stones can cause very bad pain and can block the flow of pee. The stone usually leaves your body (passes) through your pee. You may need to have a doctor take out the stone. What are the causes? Kidney stones may be caused by: A condition in which certain glands make too much parathyroid hormone (primary hyperparathyroidism). A buildup of a type of crystals in the bladder made of a chemical called uric acid. The body makes uric acid when you eat certain foods. Narrowing (stricture) of one or both of the ureters. A kidney blockage that you were born with. Past surgery on the kidney or the ureters, such as gastric bypass surgery. What increases the risk? You are more likely to develop this condition if: You have had a kidney stone in the past. You have a family history of kidney stones. You do not drink enough water. You eat a diet that is high in protein, salt (sodium), or sugar. You are overweight or very overweight (obese). What are the signs or symptoms? Symptoms of a kidney stone may include: Pain in the side of the belly, right below the ribs (flank pain). Pain usually spreads (radiates) to the groin. Needing to pee often or right away (urgently). Pain when going pee (urinating). Blood in your pee (hematuria). Feeling like you may vomit (nauseous). Vomiting. Fever and chills. How is this treated? Treatment depends on the size, location, and makeup of the kidney stones. The stones will often pass out of the body through peeing. You may need to: Drink more fluid to help pass the stone. In some cases, you may be given fluids through an IV tube put into one of your veins at the hospital. Take medicine for pain. Make changes in your diet to help keep kidney stones from coming back. Sometimes, medical procedures are needed to remove a kidney stone. This may involve: A procedure to break up kidney stones using a beam of light (laser) or shock waves. Surgery to remove the kidney stones. Follow these instructions at home: Medicines Take kdod-cmg-swgheue and prescription medicines only as told by your doctor. Ask your doctor if the medicine prescribed to you requires you to avoid driving or using heavy machinery. Eating and drinking Drink enough fluid to keep your pee pale yellow. You may be told to drink at least 8 10 glasses of water each day. This will help you pass the stone. If told by your doctor, change your diet. This may include: ?Limiting how much salt you eat. ?Eating more fruits and vegetables. ?Limiting how much meat, poultry, fish, and eggs you eat. Follow instructions from your doctor about eating or drinking restrictions. General instructions Collect pee samples as told by your doctor. You may need to collect a pee sample: ?24 hours after a stone comes out. ?8 12 weeks after a stone comes out, and every 6 12 months after that. Strain your pee every time you pee (urinate), for as long as told. Use the strainer that your doctor recommends. Do not throw out the stone. Keep it so that it can be tested by your doctor. Keep all follow-up visits as told by your doctor. This is important. You may need follow-up tests. How is this prevented? To prevent another kidney stone: Drink enough fluid to keep your pee pale yellow. This is the best way to prevent kidney stones. Eat healthy foods. Avoid certain foods as told by your doctor. You may be told to eat less protein. Stay at a healthy weight. Where to find more information National Kidney Foundation (NKF): www.kidney.org [employer] (UCF): www.urologyhealth.org Contact a doctor if: You have pain that gets worse or does not get better with medicine. Get help right away if: You have a fever or chills. You get very bad pain. You get new pain in your belly (abdomen). You pass out (faint). You cannot pee. Summary Kidney stones are rock-like masses that form inside of the kidneys. Kidney stones can cause very bad pain and can block the flow of pee. The stones will often pass out of the body through peeing. Drink enough fluid to keep your pee pale yellow. This information is not intended to replace advice given to you by your health care provider. Make sure you discuss any questions you have with your health care provider. Document Released: 02/06/2009 Document Revised: 01/07/2020 Document Reviewed: 01/07/2020 [employer] Patient Education 2020 [employer]. 11/11/2022 17:32:24 Constipation, Adult, Nhah-kw-Tfhm Constipation, Adult Constipation is when a person: Poops (has a bowel movement) fewer times in a week than normal. Has a hard time pooping. Has poop that is dry, hard, or bigger than normal. Follow these instructions at home: Eating and drinking Eat foods that have a lot of fiber, such as: ?Fresh fruits and vegetables. ?Whole grains. ?Beans. Eat less of foods that are high in fat, low in fiber, or overly processed, such as: ?Spanish fries. ?Hamburgers. ?Cookies. ?Candy. ?Soda. Drink enough fluid to keep your pee (urine) clear or pale yellow. General instructions Exercise regularly or as told by your doctor. Go to the restroom when you feel like you need to poop. Do not hold it in. Take rxdu-nyp-euherba and prescription medicines only as told by your doctor. These include any fiber supplements. Do pelvic floor retraining exercises, such as: ?Doing deep breathing while relaxing your lower belly (abdomen). ?Relaxing your pelvic floor while pooping. Watch your condition for any changes. Keep all follow-up visits as told by your doctor. This is important. Contact a doctor if: You have pain that gets worse. You have a fever. You have not pooped for 4 days. You throw up (vomit). You are not hungry. You lose weight. You are bleeding from the anus. You have thin, pencil-like poop (stool). Get help right away if: You have a fever, and your symptoms suddenly get worse. You leak poop or have blood in your poop. Your belly feels hard or bigger than normal (is bloated). You have very bad belly pain. You feel dizzy or you faint. This information is not intended to replace advice given to you by your health care provider. Make sure you discuss any questions you have with your health care provider. Document Released: 02/06/2009 Document Revised: 08/03/2018 Document Reviewed: 02/08/2017 [employer] Patient Education 2020 [employer]. Follow Up Care 11/11/2022 14:54:15 With:Jenn Urban Address: [address] [place] [address]. [address] [place] [address]- Business (1) When:11/14/2022 17:11:36 Comments:Follow-up with your primary care provider in 3 to 5 days. If symptoms worsen, do not improve, or new symptoms arise please report back to emergency department for further evaluation. [facility]03-10-2023 Evaluation + Plan noteExtracted from: Title:ED Note Author:Joon Pennington PA-C te:11/11/22 Abdominal pain (R10.9: Unspe cified abdominal pain) Constipation (K59.00: Constipation, unspecified) Orders: dicyclomine, 10 mg = 1 cap(s), Oral, QID, X 7 day(s), # 28 cap(s), Refills(s) 0, Pharmacy: [facility]/pharmacy #[id number], 158, cm, 11/11/22 15:01:00 EST, Height/Length Dosing, 57, kg, 11/11/22 15:01:00 EST, Weight Dosing magnesium citrate, 8.725 gm, 150 mL, Oral, Once, 300 mL, Refill(s) 0, [facility]acy #[id number], 158, cm, 11/11/22 15:01:00 EST, Height/Length Dosing, 57, kg, 11/11/22 15:01:00 EST, Weight Dosing mineral oil, 133 mL, Rectal, Once for constipation, 133 mL, Refill(s) 0, [facility]/pharmacy #[id number], 158, cm, 11/11/22 15:01:00 EST, Height/Length Dosing, 57, kg, 11/11/22 15:01:00 EST, Weight Dosing polyethylene glycol 3350, 17 gram, Oral, Daily, dissolve in water before taking, # 527 gram, Refills(s) 0, [id number] 158, cm, 11/11/22 15:01:00 EST, Height/Length Dosing, 57, kg, 11/11/22 15:01:00 EST, Weight Dosing U Beta Hcg Qual UA With Cult Reflex Urine Culture XR Abdomen 1 View Diagnostic Tests Pending * Urine Culture 11/11/22 [facility]03-10-2023 Evaluation + Plan noteExtracted from: Title:ED Note Author:Gorge MAXWELL, Joon Dang te:11/11/22 Constipation (K59.00: Consti pation, unspecified) Nausea (R11.0: Nausea) Orders: dicyclomine, 20 mg = 2 mL, Injection, IntraMuscular, Once, Stop date 11/11/22 21:57:00 EST, STAT, Start date 11/11/22 21:57:00 EST, 11/11/22 21:57:00 EST dicyclomine, 10 mg = 1 cap(s), Oral, QID, X 7 day(s), # 28 cap(s), Refills(s) 0, [id number] 158, cm, 11/11/22 15:01:00 EST, Height/Length Dosing, 57, kg, 11/11/22 15:01:00 EST, Weight Dosing dicyclomine, 20 mg = 1 tab(s), Tab, Oral, Once, Stop date 11/11/22 23:15:00 EST, STAT, Start date 11/11/22 23:15:00 EST, 11/11/22 23:15:00 EST hydrOXYzine, 25 mg = 1 tab(s), Tab, Oral, Once, Stop date 11/11/22 22:21:00 EST, STAT, Start date 11/11/22 22:21:00 EST, 11/11/22 22:21:00 EST magnesium citrate, 300 mL, Liquid, Oral, Once, Stop date 11/11/22 21:09:00 EST, STAT, Start date 11/11/22 21:09:00 EST magnesium citrate, 8.725 gm, 150 mL, Oral, Once, 300 mL, Refill(s) 0, [facility]/pharmacy #[id number], 158, cm, 11/11/22 15:01:00 EST, Height/Length Dosing, 57, kg, 11/11/22 15:01:00 EST, Weight Dosing mineral oil, 133 mL, Rectal, Once for constipation, 133 mL, Refill(s) 0, [facility]/pharmacy #[id number], 158, cm, 11/11/22 15:01:00 EST, Height/Length Dosing, 57, kg, 11/11/22 15:01:00 EST, Weight Dosing ondansetron, 4 mg = 1 tab(s), Tab-Dis, Oral, Once, Stop date 11/11/22 21:07:00 EST, STAT, Start date 11/11/22 21:07:00 EST, 11/11/22 21:07:00 EST polyethylene glycol 3350, 17 gram, Oral, Daily, dissolve in water before taking, # 527 gram, Refills(s) 0, Pharmacy: [facility]/pharmacy #[id number], 158, cm, 11/11/22 15:01:00 EST, Height/Length Dosing, 57, kg, 11/11/22 15:01:00 EST, Weight Dosing U Beta Hcg Qual UA With Cult Reflex Urine Culture XR Abdomen 1 View [facility]10-25-2022 Hospital Discharge instructions Patient Education 06/28/2022 19:00:07 Cough, Adult Cough, Adult Coughing is a reflex that clears your throat and your airways (respiratory system). Coughing helps to heal and protect your lungs. It is normal to cough occasionally, but a cough that happens with other symptoms or lasts a long time may be a sign of a condition that needs treatment. An acute cough may only last 2 3 weeks, while a chronic cough may last 8 or more weeks. Coughing is commonly caused by: Infection of the respiratory systemby viruses or bacteria. Breathing in substances that irritate your lungs. Allergies. Asthma. Mucus that runs down the back of your throat (postnasal drip). Smoking. Acid backing up from the stomach into the esophagus (gastroesophageal reflux). Certain medicines. Chronic lung problems. Other medical conditions such as heart failure or a blood clot in the lung (pulmonary embolism). Follow these instructions at home: Medicines Take fqdh-vhb-euyemcb and prescription medicines only as told by your health care provider. Talk with your health care provider before you take a cough suppressant medicine. Lifestyle Avoid cigarette smoke. Do not use any products that contain nicotine or tobacco, such as cigarettes, e-cigarettes, and chewing tobacco. If you need help quitting, ask your health care provider. Drink enough fluid to keep your urine pale yellow. Avoid caffeine. Do not drink alcohol if your health care provider tells you not to drink. General instructions Pay close attention to changes in your cough. Tell your health care provider about them. Always cover your mouth when you cough. Avoid things that make you cough, such as perfume, candles, cleaning products, or campfire or tobacco smoke. If the air is dry, use a cool mist vaporizer or humidifier in your bedroom or your home to help loosen secretions. If your cough is worse at night, try to sleep in a semi-upright position. Rest as needed. Keep all follow-up visits as told by your health care provider. This is important. Contact a health care provider if you: Have new symptoms. Cough up pus. Have a cough that does not get better after 2 3 weeks or gets worse. Cannot control your cough with cough suppressant medicines and you are losing sleep. Have pain that gets worse or pain that is not helped with medicine. Have a fever. Have unexplained weight loss. Have night sweats. Get help right away if: You cough up blood. You have difficulty breathing. Your heartbeat is very fast. These symptoms may represent a serious problem that is an emergency. Do not wait to see if the symptoms will go away. Get medical help right away. Call your local emergency services (911 in the [place] Do not drive yourself to the hospital. Summary Coughing is a reflex that clears your throat and your airways. It is normal to cough occasionally, but a cough that happens with other symptoms or lasts a long time may be a sign of a condition that needs treatment. Take qksq-ebn-fmortbd and prescription medicines only as told by your health care provider. Always cover your mouth when you cough. Contact a health care provider if you have new symptoms or a cough that does not get better after 23 weeks or gets worse. This information is not intended to replace advice given to you by your health care provider. Make sure you discuss any questions you have with your health care provider. Document Released: 02/17/2012 Document Revised: 09/09/2019 Document Reviewed: 09/09/2019 [employer] Patient Education 2019 [employer]. 06/28/2022 19:00:07 Upper Respiratory Infection, Adult Upper Respiratory Infection, Adult An upper respiratory infection (URI) is a common viral infection of the nose, throat, and upper airpassages that lead to the lungs. The most common type of URI is the common cold. URIs usually get better on their own, without medical treatment. What are the causes? A URI is caused by a virus. You may catch a virus by: Breathing in droplets from an infected person's cough or sneeze. Touching something that has been exposed to the virus (contaminated) and then touching your mouth, nose, or eyes. What increases the risk? You are more likely to get a URI if: You are very young or very old. It is keely or winter. You have close contact with others, such as at a daycare, school, or health care facility. You smoke. You have long-term (chronic) heart or lung disease. You have a weakened disease-fighting (immune) system. You have nasal allergies or asthma. You are experiencing a lot of stress. You work in an area that has poor air circulation. You have poor nutrition. What are the signs or symptoms? A URI usually involves some of the following symptoms: Runny or stuffy (congested) nose. Sneezing. Cough. Sore throat. Headache. Fatigue. Fever. Loss of appetite. Pain in your forehead, behind your eyes, and over your cheekbones (sinus pain). Muscle aches. Redness or irritation of the eyes. Pressure in the ears or face. How is this diagnosed? This condition may be diagnosed based on your medical history and symptoms, and a physical exam. Your health care provider may use a cotton swab to take a mucus sample from your nose (nasal swab). This sample can be tested to determine what virus is causing the illness. How is this treated? URIs usually get better on their own within 7 10 days. You can take steps at home to relieve your symptoms. Medicines cannot cure URIs, but your health care provider may recommend certain medicines to help relieve symptoms, such as: Quub-jcu-djqtvkb cold medicines. Cough suppressants. Coughing is a type of defense against infection that helps to clear the respiratory system, so take these medicines only as recommended by your health care provider. Fever-reducing medicines. Follow these instructions at home: Activity Rest as needed. If you have a fever, stay home from work or school until your fever is gone or until your health care provider says you are no longer contagious. Your health care provider may have you wear a face mask to prevent your infection from spreading. Relieving symptoms Gargle with a salt-water mixture 3 4 times a day or as needed. To make a salt- water mixture, completely dissolve 1 tsp of salt in 1 cup of warm water. Use a cool-mist humidifier to add moisture to the air. This can help you breathe more easily. Eating and drinking Drink enough fluid to keep your urine pale yellow. Eat soups and other clear broths. General instructions Take goci-kab-mbjkmld and prescription medicines only as told by your health care provider. These include cold medicines, fever reducers, and cough suppressants. Do not use any products that contain nicotine or tobacco, such as cigarettes and e-cigarettes. If you need help quitting, ask your health care provider. Stay away from secondhand smoke. Stay up to date on all immunizations, including the yearly (annual) flu vaccine. Keep all follow-up visits as told by your health care provider. This is important. How to prevent the spread of infection to others URIs can be passed from person to person (are contagious). To prevent the infection from spreading: ?Wash your hands often with soap and water. If soap and water are not available, use hand sharepoint administrator. ?Avoid touching your mouth, face, eyes, or nose. ?Cough or sneeze into a tissue or your sleeve or elbow instead of into your hand or into the air. Contact a health care provider if: You are getting worse instead of better. You have a fever or chills. Your mucus is brown or red. You have yellow or brown discharge coming from your nose. You have pain in your face, especially when you bend forward. You have swollen neck glands. You have pain while swallowing. You have white areas in the back of your throat. Get help right away if: You have shortness of breath that gets worse. You have severe or persistent: ?Headache. ?Ear pain. ?Sinus pain. ?Chest pain. You have chronic lung disease along with any of the following: ?Wheezing. ?Prolonged cough. ?Coughing up blood. ?A change in your usual mucus. You have a stiff neck. You have changes in your: ?Vision. ?Hearing. ?Thinking. ?Mood. Summary An upper respiratory infection (URI) is a common infection of the nose, throat, and upper air passages that lead to the lungs. A URI is caused by a virus. URIs usually get better on their own within 7 10 days. Medicines cannot cure URIs, but your health care provider may recommend certain medicines to help relieve symptoms. This information is not intended to replace advice given to you by your health care provider. Make sure you discuss any questions you have with your health care provider. Document Released: 2002 Document Revised: 08/29/2019 Document Reviewed: 04/06/2018 [employer] Patient Education [employer] Follow Up Care 06/28/2022 17:22:04 With:Jenn Urban Address: [address] [place] [address] [address] [place] [phone]- Business (1) When:07/01/2022 18:46:11 [facility]10-25-2022 Evaluation + Plan note Diagnostic Tests Pending * Group A Strep by PCR [facility] Diagnosis Abnormal CT of the abdomen- Primary Nonspecific (abnormal) findings on radiological and other examination of abdominal area, including retroperitoneum Infection in abdomen (HCC) Unspecified peritonitis [facility] Diagnosis Generalized abdominal pain Abdominal pain, generalized Other constipation Mesenteric panniculitis (HCC) Sclerosing mesenteritis Esophageal dysphagia Dysphagia, pharyngoesophageal phase [facility] Diagnosis Generalized abdominal pain- Primary Abdominal pain, generalized documented in [facility] course Narrative No data available for this section [facility] No data available for this section [facility] note No data available for this section [facility] Outpatient Procedure (Routine) - Closed Specialty Diagnoses / Procedures Referred By Stephen watson Referred To Contact [facility] Diagnoses Esophageal dysphagia Procedures EGD - THERAPEUTIC, EUS, OR TUBE INTERVENTIONS EGD BALLOON DILATION ESOPHAGUS <30 MM DIAM Abner Almazan MD [address] [place] [address] [place] [phone] Referral ID Status Reason Start Date Expiration Date V isits Requested Visits Authorized [id number] Closed Auto-Generate d Referral 09/11/2023 09/11/2024 1 1 * Outpatient Procedure (Routine) - Closed Specialty Diagnoses / Procedures Referred By Contac t Referred To Contact [facility] Diagnoses Generalized abdominal pain Other constipation Mesenteric panniculitis (HCC) Procedures COLONOSCOPY DIAGNOSTIC COLONOSCOPY FLX DX W/COLLJ SPEC WHEN Abner De La Torre MD [address] [place] [address] [place] [phone] Referral ID Status Reason Start Date Expiration Date V isits Requested Visits Authorized [id number] Closed Auto-Generate d Referral 09/11/2023 09/11/2024 1 1 [facility] for referral (narrative)* Outpatient Procedure (Routine) - Pending Review Specialty Diagnoses / Procedures Referred By Contac t Referred To Contact [facility] Diagnoses Generalized abdominal pain Procedures COLONOSCOPY DIAGNOSTIC COLONOSCOPY FLX DX W/COLLJ SPEC WHEN Abner De La Torre MD [address] [place] [address] [place] [phone] Referral ID Status Reason Start Date Expiration Date Visits Requested Visits Authorized [id number] Pending Review Auto-Generat ed Referral 02/16/2024 02/15/2025 1 1 [facility] for visit Narrative* Outpatient Procedure (Routine) - Closed Specialty Diagnoses / Procedures Referred By Contac t Referred To Contact [facility] Diagnoses Esophageal dysphagia Procedures EGD - THERAPEUTIC, EUS, OR TUBE INTERVENTIONS EGD BALLOON DILATION ESOPHAGUS <30 MM DIAM Abner Almazan MD [facility] [address] [place] [address] [facility] [place] [address] [place] [address] Referral ID Status Reason Start Date Expiration Date V isits Requested Visits Authorized [id number] Closed Auto-Generate d Referral 09/11/2023 09/11/2024 1 1 [facility] Summary Purpose Family History No Family History Records Found No data available for this section No data available for this section No data available for this section No data available for this section No data available for this section No data available for this section No Family History Records FoundNo Family History Records FoundNo Family History Records Found No data available for this section No data available for this section No Family History Records FoundNo Family History Records FoundNo Family History Records FoundNo Family History Records Found No data available for this section No Family History Records FoundNo Family History Records FoundNo Family History Records FoundNo Family History Records Found Advance Directives No Advanced Directives Records FoundNo Advanced Directives Records FoundNo Advanced Directives Records FoundNo Advanced Directives Records FoundNo Advanced Directives Records FoundNo Advanced Directives Records FoundNo Advanced Directives Records FoundNo Advanced Directives Records FoundNo Advanced Directives Records FoundNo Advanced Directives Records FoundNo Advanced Directives Records FoundNo Advanced Directives Records Found Reason for Referral Specialty Diagnoses / Procedures Referred By Contac t Referred To Contact CT [facility] Diagnoses Infection in abdomen (HCC) Procedures CT ABD/PEL W IVCON CT ABD & PELVIS W/CONTRAST Pastora Oh MD [address] [facility] [address] [place] [address] [place] [address] Referral ID Status Reason Start Date Expiration Date Visits Requested Visits Authorized [id number] Pending Review Auto-Generat ed Referral 3 07/20/2024 1 1 Additional Source Comments Patient Care team informatio n (unrecognized section and content) [facility] Relationship Specialty Start Date End Date Jenn Urban MD [address] [place] [address] PCP - General Family Medicine 08/03/23 Jenn Urban MD [address], [id number] Referring Family Medicine 08/12/23 Spr[facility] Relationship Specialty Start Date End Date Jenn Urban MD [address], [id number] PCP - General Family Medicine 08/03/23 Jenn Urban MD [address], [id number] Referring Family Medicine 08/12/23 Sprayer Hand Relationship Specialty Start Date End Date Jenn Urban MD [address], [id number] PCP - General Family Medicine 08/03/23 Jenn Urban MD [address] [place] [address] Referring Family Medicine 08/12/23 Sprayer Hand Relationship Specialty Start Date End Date Jenn Urban MD [address] [place] [address] PCP - General Family Medicine 08/03/23 Jenn Urban MD [address] [place] [address] Referring Family Medicine 08/12/23 INFORMATION SOURCE (unrecogn ized section and content) DATE CREATED AUTHOR 11/19/2022 [facility] DATE CREATED AUTHOR AUTHOR'S ORGANIZ ATION 06/12/2024 [facility] DATE CREATED AUTHOR AUTHOR'S ORGANIZ ATION 06/13/2024 [facility] DATE CREATED AUTHOR AUTHOR'S ORGANIZ ATION 06/30/2024 [facility] DATE CREATED AUTHOR AUTHOR'S ORGANIZ ATION 07/01/2024 [facility] DATE CREATED AUTHOR AUTHOR'S ORGANIZ ATION 07/06/2024 [facility] DATE CREATED AUTHOR AUTHOR'S ORGANIZ ATION 07/10/2024 [facility] DATE CREATED AUTHOR AUTHOR'S ORGANIZ ATION 07/12/2024 [facility] DATE CREATED AUTHOR AUTHOR'S ORGANIZ ATION 07/13/2024 [facility] Source Comments (unrecognize d section and content) In the event this informatio n is protected by the Federal Confidentiality of Alcohol and Drug Abuse Patient Records regulations: The Federal rules restrict any use of the information to criminally investigate or prosecute any alcohol or drug abuse patient.[facility] the event this information is protected by the Federal Confidentiality of Alcohol and Drug Abuse Patient Records regulations: The Federal rules restrict any use of the information to criminally investigate or prosecute any alcohol or drug abuse patient.[facility] the event this information is protected by the Federal Confidentiality of Alcohol and Drug Abuse Patient Records regulations: The Federal rules restrict any use of the information to criminally investigate or prosecute any alcohol or drug abuse patient.[facility] the event this information is protected by the Federal Confidentiality of Alcohol and Drug Abuse Patient Records regulations: The Federal rules restrict any use of the information to criminally investigate or prosecute any alcohol or drug abuse patient.[facility] the event this information is protected by the Federal Confidentiality of Alcohol and Drug Abuse Patient Records regulations: The Federal rules restrict any use of the information to criminally investigate or prosecute any alcohol or drug abuse patient.[facility] the event this information is protected by the Federal Confidentiality of Alcohol and Drug Abuse Patient Records regulations: The Federal rules restrict any use of the information to criminally investigate or prosecute any alcohol or drug abuse patient.[facility] the event this information is protected by the Federal Confidentiality of Alcohol and Drug Abuse Patient Records regulations: The Federal rules restrict any use of the information to criminally investigate or prosecute any alcohol or drug abuse patient.[facility] the event this information is protected by the Federal Confidentiality of Alcohol and Drug Abuse Patient Records regulations: The Federal rules restrict any use of the information to criminally investigate or prosecute any alcohol or drug abuse patient.[facility] Reason for Visit (unrecogniz ed section and content) Reason Comments Consult Lower abdominal pain s Reason Comments Patient Update Reason Comments Orders Reason Comments Appointment Pre-procedure instru ctions. FOR RECORDS PERTAINING TO PATIENTS WHO ARE OR HAVE BEEN ENROLLED IN A CHEMICAL DEPENDENCY/SUBSTANCEABUSE PROGRAM, SOME INFORMATION MAY BE OMITTED. This clinical summary was aggregated from multiple sources. Caution should be exercised in using it in the provision of clinical care. This summary normalizes information from multiple sources, and as a consequence, information in this document may materially change the coding, format and clinical context of patient data. In addition, data may be omitted in some cases. CLINICAL DECISIONS SHOULD BE BASED ON THE PRIMARY CLINICAL RECORDS. [facility]. provides no warranty or guarantee of the accuracy or completeness of information in this document.
[2024-07-13 17:07] LABS: Anion Gap 15.1; BUN Creatinine Ratio 14.3; Calcium 9.2 mg/dL (8.5-10.1); Carbon Dioxide 25.7 mmol/L (21.0-32.0); Chloride 103 mmol/L (98-107); Estimated GFR (African America >60 (>=60 mL/min/1.73m^2); Estimated GFR (Non-African Ame >60 (>=60 mL/min/1.73m^2); Glucose 98 mg/dL (74-106); Potassium 3.8 mmol/L (3.5-5.1); Sodium 140 mmol/L (136-145)
[2024-07-13 17:09] LABS: HCG Qualitative NEGATIVE (NEGATIVE); Internal Control Within Normal Limits
== END 2024-07-13 17:32 | disposition home or self-care (01) ==
PROVIDERS: Emergency Provider Emergency Medicine; Family Provider Family Medicine; PCP Family Medicine
DX: L52 Erythema nodosum (principal)
CPT/HCPCS: 36415; 80048; 84703; 85025; 99283

== ENCOUNTER 2024-11-20 22:43 | Emergency (ER) | payer OTHER, SELFPAY ==
[2024-11-20 22:49] VITALS: BP 130/94; PULSE 92; TEMP 36.9; O2SAT 98; BMI 26.5
--- OUTSIDE RECORDS SUMMARY | 2024-11-20 22:50 | XMS_ITS | CCD ---
Author Organization [facility] Care Team Providers Care Head Waitress Name Role Phone Jenn Urban Primary Care Physician DESI, DR MARTELL Cordero Attending Unavailable DESI, DR MARTELL Cordero Admitting [...] Provider UnavailJenn Hinton MD Primary Care Provider [phone] Jenn Urban MD Unavailable Jenn Urban MD Primary Care Provider Luís Greenfield Attending Unavailable Luís Greenfield Attending Unavailable Luís Greenfield Attending Unavailable lOe Escalante Attending Unavailable Ole Escalante Admitting Unavailable [...] ALMAZAN Attending Unavailable LEVI JOHNSON Referring Unavailable Jose Wilkinson Attending Unavailable Yessy Guerrero Attending Unavailable Yessy Guerrero Admitting Unavailable Jose Wilkinson Attending Unavailable Yessy Guerrero Attending Unavailable Yessy Guerrero Admitting Unavailable Yessy Guerrero Attending Unavailable Luís Perla Attending Unavailable Luís Perla Admitting Unavailable Luís Perla Attending Unavailable Luís Perla Referring Unavailable Luís Greenfield Attending Unavailable Jose Wilkinson Attending Unavailable NATA MEDINA Attending Unavailable Rey Barrera Attending Unavailable Rey Barrera Attending Unavailable Allergies Allergy Classification Reported Allergen(s) Allergy Type Date of Onset Reaction(s) Facility (13 sources) Loperamide; Translations: [loperamide] Drug Allergy 08-11-2023 [facility] Medications Current Medications Medication Drug Class(es) Dates Sig (Normalized) Sig (Original) acetaminophen 325 mg / HYDROcodone bitartrate 5 mg oral tablet (1 source) Opioid Agonist Start: 04-12-2023 End: 04-15-2023 [place] 325 mg-5 mg oral tablet 1 tab(s), Oral, q6hr for pain for 3 day(s), 10 tab(s), Refill(s) 0, [facility]/pharmacy #[id number], 157.4, cm, 04/12/23 2:00:00 EDT, Height/Length [...] day(s), # 10 tab(s), Refills(s) 0, Pharmacy: [facility]/pharmacy #[id number], 158, cm, 05/27/24 13:27:00 EDT, Height/Length Dosing, 64.8, kg, 05/27/24 13:27:00 EDT, Weight Dosing Start Date: 05/27/24 Stop Date: 06/01/24 Status: Ordered brompheniramine maleate 0.4 mg/ml / dextromethorphan hydrobromide 2 mg/ml / pseudoephedrine hydrochloride 6 mg/ml oral solution (1 source) alpha-Adrenergic Agonist, Uncompetitive G-[id number]-U-aspart[place] te Receptor Antagonist, Sigma-1 Agonist Start: 06-28-2022 End: 07-05-2022 take 10 mL by mouth four times daily for cough and congestion Bromfed DM oral syrup 10 mL, Oral, QID for cough and congestion for 7 day(s), 280 mL, Refill(s) 0, [facility]/pharmacy #[id number], 157, cm, 06/28/22 17:24:00 EDT, Height/Length Dosing, 56, kg, 06/28/22 17:24:00 EDT, Weight Dosing Start Date: 06/28/22 Stop Date: 07/05/22 Status: Ordered cephalexin 500 mg oral capsule (1 source) Cephalosporin Antibacterial Start: 10-28-2024 End: 11-04-2024 take 1 capsule by mouth every twelve hours cephalexin 500 mg Cap 500 mg = 1 cap(s), Oral, q12hr, X 7 day(s), # 14 cap(s), Refills(s) 0, Pharmacy: [facility]/pharmacy #[id number], 158, cm, 10/28/24 6:50:00 EST, Height/Length Dosing, 64, kg, 10/28/24 6:50:00 EST, Weight Dosing Start Date: 10/28/24 Stop Date: 11/04/24 Status: Ordered ciprofloxacin 500 mg oral tablet (2 sources) Quinolone Antimicrobial Start: 10-10-2024 End: 10-20-2024 take 1 tablet by mouth every twelve hours ciprofloxacin 500 mg Tab 500 mg = 1 tab(s), Oral, q12hr, X 10 day(s), # 20 tab(s), Refills(s) 0, Pharmacy: [facility]/pharmacy #[id number], 158, cm, 10/10/24 13:53:00 EST, Height/Length Dosing, 63.1, kg, 10/10/24 13:53:00 EST, Weight Dosing Start Date: 10/10/24 Stop Date: 10/20/24 Status: Ordered ciprofloxacin 3 mg/ml / dexamethasone 1 mg/ml otic suspension (2 sources) Corticosteroid, Quinolone Antimicrobial Start: 05-27-2024 End: 06-03-2024 Ciprodex 0.3%-0.1% Susp-Otic 4 drop(s), Otic, BID for 7 day(s), 7.5 mL, Refill(s) 0, BOTH ears shake well before using wash hands before applying, [facility]/pharmacy #[id number], 158, cm, 05/27/24 13:27:00 EDT, Height/Length Dosing, 64.8, kg, 05/27/24 13:27:00 EDT, Weight Dosing Start Date: 05/27/24 Stop Date: 06/03/24 Status: Ordered clindamycin 300 mg oral capsule (5 sources) Lincosamide Antibacterial Start: 09-16-2020 take 1 capsule by mouth every eight hours clindamycin 300 mg oral cap 300 mg = 1 cap(s), Oral, q8hr, # 24 cap(s), Refills(s) 0, [id number] 157, cm, 09/16/20 21:21:00 EST, Height/Length [...] Active Start: 05-18-2017 take 2 tablets by [facility] once daily at bedtime cloNIDine 0.2 mg [...] cramping, # 12 cap(s), Refills(s) 0, [id number], 157, cm, 03/19/23 6:49:00 EDT, Height/Length Dosing, 56, kg, 03/19/23 6:49:00 EDT, Weight Dosing Start Date: 03/19/23 Status: Ordered Start: 11-11-2022 End: 11-18-2022 take 1 capsule by mouth four times daily Bentyl 10 mg Cap 10 mg = 1 cap(s), Oral, QID, X 7 day(s), # 28 cap(s), Refills(s) 0, Pharmacy: [facility]/pharmacy #[id number], 158, cm, 11/11/22 15:01:00 EST, Height/Length Dosing, 57, kg, 11/11/22 15:01:00 EST, Weight Dosing Start Date: 11/11/22 Stop Date: 11/18/22 Status: Ordered docusate sodium 100 mg oral capsule (3 sources) Start: 10-10-2024 take 1 capsule by mouth once daily as needed for constipation Colace 100 mg Cap 100 mg = 1 cap(s), Oral, Daily, PRN for constipation, # 100 cap(s), Refills(s) 0, [id number], 158, cm, 10/10/24 13:53:00 EST, Height/Length Dosing, 63.1, kg, 10/10/24 13:53:00 EST, Weight Dosing Start Date: 10/10/24 Status: Ordered enteric contrast (will be provided [...] Daily, # 30 tab(s), Refills(s) 0, Pharmacy: [facility]/pharmacy #[id number], 157, cm, 03/19/23 6:49:00 EDT, Height/Length [...] link. lidocaine hydrochloride 0.02 mg/mg topical gel (5 sources) Antiarrhythmic, Amide Local Anesthetic Start: 06-28-2024 [...] afternoon. magnesium citrate 58.2 mg/ml oral solution (6 sources) Start: 06-11-2024 take 8.725 g by [...] PO DAILY. FILL ON OR AFTER 05-23-23 naproxen 500 mg oral tablet (1 source) Nonsteroidal Anti-inflammatory Drug Start: 5 End: 5 take 1 tablet by mouth twice daily naproxen 500 mg Tab 500 mg = 1 tab(s), Oral, BID, X 10 day(s), # 20 tab(s), Refills(s) 0, Pharmacy: [facility]/pharmacy #[id number], 158, cm, 10/28/24 6:50:00 EST, Height/Length Dosing, 64, kg, 10/28/24 6:50:00 EST, Weight Dosing Start Date: 10/28/24 Stop Date: 11/07/24 Status: Ordered nitrofurantoin, macrocrystals 25 mg / nitrofurantoin, monohydrate 75 mg oral capsule (3 sources) Nitrofuran Antibacterial Start: 4 End: 4 take 1 capsule by mouth twice daily Macrobid 100 mg Cap 100 mg = 1 cap(s), Oral, BID, X 7 day(s), # 14 cap(s), Refills(s) 0, Pharmacy: [facility]/pharmacy #[id number], 158, cm, 06/28/24 14:54:00 EDT, Height/Length Dosing, 65.1, kg, 06/28/24 14:54:00 EDT, Weight Dosing Start Date: 06/28/24 Stop Date: 07/05/24 Status: Ordered Start: 06-11-2024 End: 06-18-2024 take 1 capsule by mouth twice daily Macrobid 100 mg Cap 100 mg = 1 cap(s), Oral, BID, X 7 day(s), # 14 cap(s), Refills(s) 0, Pharmacy: [facility]/pharmacy #[id number], 157.4, cm, 06/11/24 10:45:00 EDT, Height/Length Dosing, 65.8, kg, 06/11/24 10:45:00 EDT, Weight Dosing Start Date: 06/11/24 Stop Date: 06/18/24 Status: Ordered ondansetron 4 mg disintegrating oral tablet (1 source) Serotonin-3 Receptor Antagonist Start: 10-28-2024 take 1 tablet by mouth every six hours as needed for nausea ondansetron 4 mg Dis Tab 4 mg = 1 tab(s), Oral, q6hr, PRN Nausea/Vomiting, # 15 tab(s), Refills(s) 0, Pharmacy: [facility]/pharmacy #[id number], 158, cm, 10/28/24 6:50:00 EST, Height/Length Dosing, 64, kg, 10/28/24 6:50:00 EST, Weight Dosing Start Date: 10/28/24 Status: Ordered pantoprazole 20 mg delayed release oral tablet (1 source) Proton Pump Inhibitor Start: 07-29-2024 End: 08-12-2024 take 1 tablet by mouth once daily Pantoprazole [address] Tab 20 mg = 1 tab(s), Oral, Daily, X 14 day(s), # 14 tab(s), Refills(s) 0, [id number] 158, cm, 07/29/24 6:03:00 EST, Height/Length Dosing, 64.6, kg, 07/29/24 6:03:00 EST, Weight Dosing Start Date: 07/29/24 Stop Date: 08/12/24 Status: Ordered penicillin v potassium 500 mg oral tablet (5 sources) Start: 09-29-2021 take 1 tablet by mouth every six hours penicillin V potassium 500 mg Tab 500 mg = 1 tab(s), Oral, q6hr, # 40 tab(s), Refills(s) 0, [id number], 157.5, cm, 09/29/21 1:19:00 EST, Height/Length Dosing, 56.1, kg, 09/29/21 1:19:00 EST, Weight Dosing Start Date: 09/29/21 Status: Ordered phenazopyridine hydrochloride 100 mg oral tablet (3 sources) Start: 10-28-2024 End: 10-31-2024 take 1 tablet by mouth three times daily Pyridium 100 mg Tab 100 mg = 1 tab(s), Oral, TID, X 3 day(s), # 9 tab(s), Refills(s) 0, [id number], 158, cm, 10/28/24 6:50:00 EST, Height/Length Dosing, 64, kg, 10/28/24 6:50:00 EST, Weight Dosing Start Date: 10/28/24 Stop Date: 10/31/24 Status: Ordered Start: 10-10-2024 End: 10-16-2024 take 1 tablet by mouth three times daily as needed for pain Pyridium 200 mg Tab 200 mg = 1 tab(s), Oral, TID, PRN urinary pain, X 3 day(s), # 9 tab(s), Refills(s) 1, Pharmacy: [facility]/pharmacy #[id number], 158, cm, 10/10/24 13:53:00 EST, Height/Length Dosing, 63.1, kg, 10/10/24 13:53:00 EST, Weight Dosing Start Date: 10/10/24 Stop Date: 10/16/24 Status: Ordered polyethylene glycol 3350 51838 mg powder for oral solution (13 sources) Osmotic Laxative Start: 06-11-2024 take 17 g by mouth once daily Miralax 3350 17 gram packet 17 gm, Oral, Daily, # 255 gm, Refills(s) 1, Pharmacy: [facility]/pharmacy #[id number], 158, cm, 10/10/24 13:53:00 EST, Height/Length Dosing, 63.1, kg, 10/10/24 13:53:00 EST, Weight Dosing Start Date: 10/10/24 Status: Ordered Start: 11-11-2022 polyethylene g lycol 3350 Oral Pwdr for Recon 17 gram, Oral, Daily, dissolve in water before taking, # 527 gram, Refills(s) 0, Pharmacy: [facility]/pharmacy #[id number], 158, cm, 11/11/22 15:01:00 EST, Height/Length Dosing, 57, kg, 11/11/22 15:01:00 EST, Weight Dosing Start Date: 11/11/22 Status: Ordered polyethylene glycol 3350 961700 mg / potassium chloride 2970 mg / sodium bicarbonate 6740 mg / sodium chloride 5860 mg / sodium sulfate 47289 mg powder for oral solution (5 sources) Osmotic Laxative Start: 09-11-2023 peg 3350-Electrolytes (GOLYTELY) 236-22.74-6.74 -5.86 gram suspension Refer to printed patient instructions that will be mailed to you. 4000 mL 09/11/2023 Active Comment on above: Refer to printed pat ient instructions that will be mailed to you. sertraline 50 mg oral tablet (19 sources) Serotonin Reuptake Inhibitor Start: 07-14-2023 take [...] gram/175 mL oral solution (1 source) Start: End: sodium picosulfate-magnesiu m oxide-citric acid (CLENPIQ) 10 mg-3.5 gram- 12 gram/175 mL oral solution Refer to instructions given by your provider 350 mL 0 02/16/2024 02/18/2024 Active sucralfate 1000 mg oral tablet (1 source) Aluminum Complex Start: End: take 1 tablet by mouth four times daily Carafate 1 gram Tab 1 gm = 1 tab(s), Oral, QID, X 10 day(s), # 40 tab(s), Refills(s) 0, Pharmacy: [facility]/pharmacy #[id number], 158, cm, 07/29/24 6:03:00 EST, Height/Length Dosing, 64.6, kg, 07/29/24 6:03:00 EST, Weight Dosing Start Date: 07/29/24 Stop Date: 08/08/24 Status: Ordered tamsulosin hydrochloride 0.4 mg oral capsule (2 sources) alpha-Adrenergic Keely Start: take 1 capsule by mouth once daily Flomax 0.4 mg Cap 0.4 mg = 1 cap(s), Oral, Daily, # 10 cap(s), Refills(s) 0, Pharmacy: [facility]/pharmacy #[id number], 158, cm, 10/28/24 6:50:00 EST, Height/Length Dosing, 64, kg, 10/28/24 6:50:00 EST, Weight Dosing Start Date: 10/28/24 Status: Ordered Start: 04-12-2023 take 1 capsule by mo uth once daily Flomax 0.4 mg Cap 0.4 mg = 1 cap(s), Oral, Daily, # 10 cap(s), Refills(s) 0, Pharmacy: [facility]/pharmacy #[id number], 157.4, cm, 04/12/23 2:00:00 EDT, Height/Length Dosing, 56, kg, 04/12/23 2:00:00 EDT, Weight Dosing Start Date: 04/12/23 Status: Ordered Zofran ODT 4 mg Tab-Dis (9 sources) Start: 07-29-2024 take 1 tablet by mouth every eight hours as needed for nausea Zofran ODT 4 mg Tab-Dis 4 mg = 1 tab(s), Oral, q8hr, PRN Nausea/Vomiting, # 16 tab(s), Refills(s) 0, Pharmacy: [facility]/pharmacy #[id number], 158, cm, 07/29/24 6:03:00 EST, Height/Length Dosing, 64.6, kg, 07/29/24 6:03:00 EST, Weight Dosing Start Date: 07/29/24 Status: Ordered Start: 04-12-2023 take 1 tablet by tiffany th every eight hours Zofran ODT 4 mg Tab-Dis 4 mg = 1 tab(s), Oral, q8hr, # 12 tab(s), Refills(s) 0, Pharmacy: [facility]/pharmacy #[id number], 157.4, cm, 04/12/23 2:00:00 EDT, Height/Length Dosing, 56, kg, 04/12/23 2:00:00 EDT, Weight Dosing Start Date: 04/12/23 Status: Ordered Start: 03-19-2023 take 1 tablet by tiffany th every eight hours as needed for nausea Zofran ODT 4 mg Tab-Dis 4 mg = 1 tab(s), Oral, q8hr, PRN Nausea/Vomiting, # 12 tab(s), Refills(s) 0, Pharmacy: [facility]/pharmacy #[id number], 157, cm, 03/19/23 6:49:00 EDT, Height/Length Dosing, 56, kg, 03/19/23 6:49:00 EDT, Weight Dosing Start Date: 03/19/23 Status: Ordered Start: 01-24-2023 take 1 tablet by tiffany th every eight hours as needed for nausea Zofran ODT 4 mg Tab-Dis 4 mg = 1 tab(s), Oral, q8hr, PRN Nausea/Vomiting, # 20 tab(s), Refills(s) 0, Pharmacy: [facility]/pharmacy #[id number], 158, cm, 01/23/23 22:00:00 EDT, Height/Length Dosing, 57, kg, 01/23/23 22:00:00 EDT, Weight Dosing Start Date: 01/24/23 Status: Ordered Completed/Discontinued Medications Medication Drug Class(es) Dates Sig (Normalized) Sig (Original) {24 (drospirenone 3 MG / Ethinyl Estradiol 0.02 MG Oral Tablet) / 4 (Inert Ingredients 1 MG Oral Tablet) } Pack [Vestura] (16 sources) Progestin, Estrogen Start: 12-01-2023 Vestura 3 [...] Date Documented Da te Episodic/Chronic Abdominal pain (5 sources) Abdominal pain; Translations: [Unspecified abdominal pain] Onset: 11-11-2022 Episodic Alcohol-related disorders (1 source) Alcoholic gastritis; 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-2023 Chronic Attention-deficit, conduct, and disruptive behavior disorders (19 sources) Attention deficit hyperactivity disorder; Translations: [Attention-deficit hyperactivity disorder, unspecified type] 05-07-2012 Chronic Bacterial infection; unspecified site (1 source) Bacterial infectious disease; Translations: [Bacterial infection, unspecified] Onset: 06-28-2024 Episodic Calculus of urinary tract (2 sources) Renal colic; Translations: [Unspecified renal colic] Onset: 04-12-2023 Episodic Diabetes mellitus without complication (4 sources) Glycosuria; Translations: [Glycosuria] Onset: 10-10-2024 Episodic Genitourinary symptoms and ill-defined conditions (3 sources) Urinary symptoms 10-10-2024 Episodic Nausea and vomiting (4 sources) Nausea; Translations: [Nausea] Onset: 10-05-2022 Episodic Noninfectious gastroenteritis (1 source) Noninfective gastroenteritis and colitis, unspecified; Translations: [NONINFECTIVE GE AND COLITIS UNS] Onset: 10-06-2022 Episodic Other aftercare (1 source) Long-term current use of drug therapy; Translations: [Other penitentiary (current) drug therapy] Episodic Other ear and [...] conditions (not mental disorders or infectious disease) (13 sources) CT of abdomen abnormal; Translations: [Abnormal findings on diagnostic imaging of other abdominal regions, including retroperitoneum] Onset: 12-01-2023 06-22-2023 Episodic Other skin disorders (1 source) Eruption; Translations: [Rash and other nonspecific skin eruption] Onset: 06-28-2024 Episodic Otitis media and related conditions (1 source) Otitis media; Translations: [Otitis media, unspecified, left ear] Onset: 05-27-2024 Episodic Residual codes; unclassified (12 sources) Family history of breast cancer; Translations: [...] EXPOS COVID-19] Onset: 10-06-2022 Urinary tract infections (11 sources) Urinary tract infectious disease; Translations: [Urinary tract infection, site not specified] Onset: 06-11-2024 Episodic Past or Other Problems Problem Classification Problem Date Documented Da te Episodic/Chronic Fever of unknown origin (3 sources) Fever, [...] Results Test Name Value Interpretation Reference Range Facil itlesley C Urineon 10-30-2024 Bacteria identified Cx Nom (U) Microbiology PROCEDURE: Urine Culture [R1] SOURCE: U CleanCatch BODY SITE: COLLECTED DATE/TIME: 10/28/2024 07:01 EST RECEIVED DATE/TIME: 10/28/2024 11:33 EST START DATE/TIME: 10/28/2024 11:33 EST FREE TEXT SOURCE: Rey Barrera DO, DO, Kevin M. FINAL REPORTS Final Report [] Verified Date/Time: 10/30/2024 09:27 EST <10,000 cfu/ml Mixed skin contaminants Performing Locations R1: This test was performed at: [facility], [address] [place] [address], [id number]- , , Normal [facility] Comment on above: Performed By: #### [id number] #### [facility] [address] [place] [address] ED Note-Physicianon 10-29-19 ED Note-Physician ED Note-Physician Basic Information Time Seen: Param Kingsley PA-C 10/28/2024 07:02 Chief Complaint right lower back pain starting this am. states nausea. states recently finished antibotic for uti. states having pain with urination. denies fever History of Present Illness Patient is a 24-year-old female with PMH of kidney stones and pyelonephritis that presents today for evaluation of her dysuria, urinary frequency nausea and back pain. Patient states that symptoms started this morning. She states that she was just treated for UTI and that her dysuria temporarily improved but has not returned. She never had full resolution of her urinary frequency as the symptoms remain despite antibiotic therapy. She denies any fevers but does note nausea. Denies any vomiting. She states that she feels some pressure in her lower abdomen but no true pain. Denies any cough or congestion or upper respiratory symptoms. She does state that this feels exactly like when she had a kidney stone in the past. Review of Systems A 10 point review of systems is negative except as noted above. Medical and Surgical History: Reviewed and noted Social history: Lives at home Tobacco: Denies Physical Exam Vitals & Measurements T: 36.8 ???C(Oral) HR: 81(Peripheral) RR: 16 BP: 129/85 SpO2: 100% HT: 158 cm WT: 64 kg BMI: 25.64 General: The patient appears well and in no apparent distress. Patient is resting comfortably on cart. Skin: Warm, dry, no pallor noted. Head: Normocephalic, atraumatic Neck: No JVD Eye: PERRLA, EOMI ENT: Moist mucus membranes Cardiovascular: Regular rate and rhythm. Normal peripheral perfusion Respiratory: CTA bilaterally. No respiratory distress no accessory muscle use no obvious audible wheezing Chest Wall: no deformity Musculoskeletal: normal ROM, no deformity, no swelling GI: Soft no obvious distention. No rebound or rigidity. No guarding. No tenderness. Right CVA tenderness. Neurological: A&O moves all extremities equal strength and symmetry Psychiatric: Cooperative and appropriate Medical Decision Making Patient is a 24-year-old female with PMH of kidney stones and pyelonephritis that presents today for evaluation of her dysuria, urinary frequency, nausea, back pain. Symptoms started this morning. She had a UTI a couple of weeks ago and took antibiotics but never truly fully improved. She had improvement of her dysuria but her urinary frequency continued. Is now having return of dysuria with these new associated symptoms. States that it feels exactly what given she had a kidney stone in the past. On exam the patient is afebrile nontoxic-appearing. She does have right-sided CVA tenderness. The remainder of the abdomen soft and nontender with no evidence of guarding or distention. Given patient's history of pyelonephritis as well as kidney stones we did obtain labs as well as CT. labs are WNL including WBC, BUN, creatinine. UA does demonstrate evidence of UTI with positive leuks, WBCs, bacteria and she does have blood present. CT of the abdomen and pelvis demonstrates moderately obstructing approximately 5 to 6 mm proximal right calculus moderate right hydronephrosis. Patient greatly improved with Toradol and Zofran and is pain-free. Patient will be started on Keflex, naproxen, Zofran, Flomax, Pyridium for her symptoms. Did provide her with a urine strainer. Given this is a second time she has had kidney stones and she is only 24 years old I will provide her with urology to follow-up with and provide her with Dr. Benito for this follow-up. We discussed if she has new or worsening symptoms she should promptly return to the ED for reevaluation. Return to ED precautions were reviewed with the patient at length. Assessment/Plan Kidney stone on right side (N20.0: Calculus of kidney) UTI (urinary tract infection) (N39.0: Urinary tract infection, site not specified) Orders: cephalexin, 500 mg = 1 cap(s), Oral, q12hr, X 7 day(s), # 14 cap(s), Refills(s) 0, Pharmacy: [facility]/pharmacy #[id number], 158, cm, 10/28/24 6:50:00 EST, Height/Length Dosing, 64, kg, 10/28/24 6:50:00 EST, Weight Dosing ketorolac, 30 mg = 1 mL, Injection, IV Push, Once, Stop date 10/28/24 7:12:00 EST, STAT, Start date 10/28/24 7:12:00 EST, 10/28/24 7:12:00 EST naproxen, 500 mg = 1 tab(s), Oral, BID, X 10 day(s), # 20 tab(s), Refills(s) 0, Pharmacy: [facility]/pharmacy #[id number], 158, cm, 10/28/24 6:50:00 EST, Height/Length Dosing, 64, kg, 10/28/24 6:50:00 EST, Weight Dosing ondansetron, 4 mg = 1 tab(s), Oral, q6hr, PRN Nausea/Vomiting, # 15 tab(s), Refills(s) 0, Pharmacy: [facility]/pharmacy #[id number], 158, cm, 10/28/24 6:50:00 EST, Height/Length Dosing, 64, kg, 10/28/24 6:50:00 EST, Weight Dosing ondansetron, 4 mg = 2 mL, Injection, IV Push, Once, Stop date 10/28/24 7:12:00 EST, STAT, Start date 10/28/24 7:12:00 EST, 10/28/24 7:12:00 EST phenazopyridine, 100 mg = 1 tab(s), Oral, TID, X 3 day(s), # 9 tab(s), Refills(s) 0, Pharmacy: [facility]/pharmacy #[id number], 158, cm, 10/28/24 6:50:00 EST, Height/Margaret (more content not included)... Normal [facility] Comment on above: Result Comment: Elec tronically Signed By: Param Kingsley PA-C\.br\Date and Time Signed: 10/28/24 14:05 EST\.br\Electronically Co-Signed By: Luís Greenfield DO\.br\Date and Time Co-Signed: 10/29/24 19:18 EST BMPon 10-28-2024 Anion gap [Moles/Vol] 10 mmol/L Normal 6-16 [facility] Comment on above: Performed By: #### [id number] #### [facility] [address] [place] [address] Calcium [Mass/Vol] 9.3 mg/dL Normal 8.9-11.1 [facility] Comment on above: Performed By: #### [id number] #### [facility] [address] [place] [address] Chloride [Moles/Vol] 106 mmol/L Normal 101-111 [facility] Comment on above: Performed By: #### [id number] #### [facility] [address] [place] [address] CO2 [Moles/Vol] 25 mmol/L Normal 21-31 [facility] Comment on above: Performed By: #### [id number] #### [facility] [address] [place] [address] Creatinine [Mass/Vol] 0.8 mg/dL Normal 0.5-1.3 [facility] Comment on above: Performed By: #### [id number] #### [facility] [address] [place] [address] Glucose [Mass/Vol] 110 mg/dL Normal 55-199 [facility] Comment on above: Performed By: #### [id number] #### [facility] [address] [place] [address] Potassium [Moles/Vol] 3.4 mmol/L Low 3.5-5.3 [facility] Comment on above: Performed By: #### [id number] #### [facility] [address] [place] [address] Sodium [Moles/Vol] 138 mmol/L Normal 135-145 [facility] Comment on above: Performed By: #### 2 [id number] #### [facility] Laboratory [address] [place] [address] Urea nitrogen [Mass/Vol] 14 mg/dL Normal 5-21 [facility] Comment on above: Performed By: #### 2 [id number] #### [facility] Laboratory [address] [place] [address] Urea nitrogen/Creatinine [Mass ratio] 18 No Units Normal 10-20 [facility] Comment on above: Performed By: #### 2 [id number] #### [facility] Laboratory [address] [place] [address] CBC w/ Auto Diffon 5 Basophils/100 WBC (Bld) 0.3 % Normal 0.0-2.0 [facility] Comment on above: Performed By: #### 2 [id number] #### [facility] Laboratory [address] [place] [address] Basophils/Leukocytes Auto (Bld) [Pure # fraction] 0.0 E9/L Normal 0.0-0.2 [facility] Comment on above: Performed By: #### 2 [id number] #### [facility] Laboratory [address] [place] [address] Eosinophils (Bld) [#/Vol] 0.1 E9/L Normal 0.0-0.5 [facility] Comment on above: Performed By: #### 2 [id number] #### [facility] Laboratory [address] [place] [address] Eosinophils/100 WBC (Bld) 1.2 % Normal 0.0-8.0 [facility] Comment on above: Performed By: #### 2 [id number] #### [facility] Laboratory [address] [place] [address] Erythrocyte distribution width (RBC) [Ratio] 13.8 % Normal 10.9-14.2 [facility] Comment on above: Performed By: #### 2 [id number] #### [facility] Laboratory [address] [place] [address] Hematocrit (Bld) [Volume fraction] 38.7 % Normal 34.0-46.0 [facility] Comment on above: Performed By: #### 2 [id number] #### [facility] Laboratory [address] [place] [address] Hemoglobin (Bld) [Mass/Vol] 13.1 g/dL Normal 12.0-16.0 [facility] Comment on above: Performed By: #### 2 [id number] #### [facility] Laboratory [address] [place] [address] Lymphocytes (Bld) [#/Vol] 2.3 E9/L Normal 1.0-4.0 [facility] Comment on above: Performed By: #### 2 [id number] #### [facility] Laboratory [address] [place] [address] Lymphocytes/100 WBC (Bld) 22.2 % Normal 14.0-50.0 [facility] Comment on above: Performed By: #### 2 [id number] #### [facility] Laboratory [address] [place] [address] MCH (RBC) [Entitic mass] 29.3 pg Normal 27.0-34.0 [facility] Comment on above: Performed By: #### 2 [id number] #### [facility] Laboratory [address] [place] [address] MCHC (RBC) [Mass/Vol] 33.8 g/dL Normal 31.4-36.0 [facility] Comment on above: Performed By: #### 2 [id number] #### [facility] Laboratory [address] [place] [address] MCV (RBC) [Entitic vol] 86.6 fL Normal 80.0-100.0 [facility] Comment on above: Performed By: #### 2 [id number] #### [facility] [address] [place] [address] Monocytes (Bld) [#/Vol] 0.6 E9/L Normal 0.2-1.0 [facility] Comment on above: Performed By: #### 2 [id number] #### [facility] Laboratory [address] [place] [address] Neutrophils (Bld) [#/Vol] 7.2 E9/L Normal 2.0-7.5 [facility] Comment on above: Performed By: #### 2 [id number] #### [facility] Laboratory [address] [place] [address] Neutrophils/100 WBC (Bld) 70.1 % Normal 36.0-75.0 [facility] Comment on above: Performed By: #### 2 [id number] #### [facility] Laboratory [address] [place] [address] Platelet mean volume (Bld) [Entitic vol] 8.3 fL Normal 6.4-10.8 [facility] Comment on above: Performed By: #### 2 [id number] #### [facility] [address] [place] [address] Platelets (Bld) [#/Vol] 303.0 E9/L Normal 150.0-500.0 [facility] Comment on above: Performed By: #### 2 [id number] #### [facility] Laboratory [address] [place] [address] RBC (Bld) [#/Vol] 4.5 E12/L Normal 4.3-5.9 [facility] Comment on above: Performed By: #### 2 [id number] #### [facility] Laboratory [address] [place] [address] WBC corrected for nucl RBC Auto (Bld) [#/Vol] 10.2 E9/L Normal 4.0-11.0 [facility] Comment on above: Performed By: #### 2 [id number] #### [facility] [address] [place] [address] CHEMISTRYOrdered By: SYSTEM SYSTEM on 10-28-2024 Albumin [Mass/Vol] 4.5 g/dL Normal 3.3 - 5.0 gm/dL R emisol Chem Albumin/Globulin [Mass ratio] 1.9 {ratio} Normal 1.1 - 2.2 Remisol Chem ALP [Catalytic activity/Vol] 63 [iU]/d Normal 21 - 98 Int._Unit/L Remisol Chem ALT No additional P-5'-P [Catalytic activity/Vol] 10 [iU]/d Normal 6 - 46 Int._Unit/L Remisol Chem Anion gap [Moles/Vol] 10 mmol/L Normal 6 - 16 mEq/L Remisol Chem AST [Catalytic activity/Vol] 14 [iU]/d Normal 5 - 43 Int._Unit/L Remisol Chem Bilirubin [Mass/Vol] 0.8 mg/dL Normal 0.0 - 1.1 mg/dL Remisol Chem Bilirubin.direct [Mass/Vol] 0.1 mg/dL Normal 0.0 - 0.4 mg/dL Remisol Chem Bilirubin.indirect [Mass or moles/Vol] 0.7 mg/dL Normal 0.1 - 0.9 mg/dL Remisol Chem Calcium [Mass/Vol] 9.3 mg/dL Normal 8.9 - 11. 1 mg/dL Remisol Chem Chloride [Moles/Vol] 106 mmol/L Normal 101 - 1 11 mmol/L Remisol Chem CO2 [Moles/Vol] 25 mmol/L Normal 21 - 31 mmol/L Remis ol Chem Creatinine [Mass/Vol] 0.8 mg/dL Normal 0.5 - 1.3 mg/dL Remisol Chem eGFR 107 mL/min/1.73 m2 Normal >=59mL/mi n/1.73 m2 Remisol Chem Globulin (S) [Mass/Vol] 2.4 g/dL Normal 1.4 - 4.0 gm/dL Remisol Chem Glucose [Mass/Vol] 110 mg/dL Normal 55 - 199 mg/dL Re misol Chem Lipase [Catalytic activity/Vol] 44 U/L Normal 13 - 58 unit/L Remisol Chem Potassium [Moles/Vol] 3.4 mmol/L Low 3.5 - 5.3 mmol/L Remisol Chem Protein [Mass/Vol] 6.9 g/dL Normal 6.0 - 7.8 gm/dL R emisol Chem Sodium [Moles/Vol] 138 mmol/L Normal 135 - 145 mmol/L Remisol Chem Urea nitrogen [Mass/Vol] 14 mg/dL Normal 5 - 21 mg/dL Remisol Chem Urea nitrogen/Creatinine [Mass ratio] 18 mg/mg Normal 10 - [address] Abdomen/Pelvis w/ Contras ton 10-28-2024 CT Abdomen/Pelvis w/ Contrast Exam Date/Time: 10/28/2024 08:22 EST Reason for Exam: ABDOMINAL PAIN, ACUTE, NONLOCALIZED;Other (please specify) Report IMPRESSION: MODERATELY OBSTRUCTING APPROXIMATELY 5 TO 6 MM PROXIMAL RIGHT URETERAL CALCULUS. THERE ARE SMALL VOLUME FREE FLUID IN THE PELVIS, WHICH IS PROBABLY PHYSIOLOGIC/REACTIVE. EXAM: CT Abdomen/Pelvis w/ Contrast DATE: 10/28/2024 8:01 AM CLINICAL HISTORY: ABDOMINAL PAIN, ACUTE, NONLOCALIZED. COMPARISON: 07/17/2023. TECHNIQUE: Spiral imaging was obtained of the abdomen and pelvis after the uneventful infusion of intravenous contrast. All CT scans at this facility use dose modulation, iterative reconstruction, and/or weight based dosing when appropriate to reduce radiation dose to as low as reasonably achievable. Unless otherwise stated, incidental findings identified in this report do not require routine follow-up imaging. FINDINGS: Liver: No enlargement, significant fatty infiltration, suspicious mass or lesion. Biliary: The gallbladder is unremarkable. No abnormal biliary ductal dilatation. Pancreas: No suspicious mass, organized fluid collection, surrounding inflammation, or abnormal pancreatic ductal dilatation. Spleen: Unremarkable. Adrenals: Unremarkable. Kidneys: Moderate right hydronephrosis secondary to an approximately 5 to 6 mm calculus (average Hounsfield units approximately 1000) within the proximal third of the right ureter approximately 17 cm superior to the right UVJ. Approximately 2 to 3 mm right upper pole renal calculus. No other significant urinary tract calculi, or suspicious mass. GI tract: No abnormal dilation, wall thickening, or suspicious mass. Normal appendix. Lymph nodes: No pathologically enlarged lymph nodes. Vasculature: No aneurysm or dissection. Mesentery/peritoneum/r etroperitoneum: Very small volume of low-density free fluid in the dependent pelvis. No organized fluid collection or suspicious mass. Pelvis: The urinary bladder, uterus, and adnexa appear within normal limits. Musculoskeletal: No acute osseous findings identified. Lower thorax: Noncontributory. Report Ordering Provider: Param Kingsley FINAL REPORT Dictated: 10/28/2024 8:56 am Jean-Pierre Serrano MD Signed (Electronic Signature): 10/28/2024 8:56 am Signed by: Jean-Pierre Serrano MD Transcribed by: VALERIE Technologist: HERIBERTO Heard [facility] ED Clinical Summaryon 2024 ED Clinical Summary ED Clinical Summary [place] [id number] ED Clinical Summary Person Information Name: SHERIE RIZVI [facility] Age: 24 Years : 2000 Sex: Female Language: Thai PCP: Jenn Urban MD Marital Status: Single Visit Id: Visit Reason: Nausea; Back pain; Dysuria; LOWER BACK PAIN Speciality: Acuity: 3 Enc Type: Emergency Med Service: Emergency Arrival: 10/28/2024 06:45:36 Discharge: 10/28/2024 09:29:05 LOS: 000 02:44 Checkin: 10/28/2024 06:45:36 Checkout: 10/28/2024 09:29:05 Dispo Type: Home (Routine DC) EVENTS: Event Name Event Status Request Date/Time Start Date/Time Complete Date/Time Arrive Complete 10/28/2024 06:45:36 10/28/2024 06:45:36 10/28/2024 06:45:36 Document Home Meds Request 10/28/2024 06:45:36 Triage Complete 10/28/2024 06:45:36 10/28/2024 06:50:28 10/28/2024 06:50:28 Registration Complete 10/28/2024 06:47:38 10/28/2024 06:47:38 10/28/2024 06:47:38 Reg Complete Request 10/28/2024 06:47:38 Reg Bed Request Complete 10/28/2024 06:47:39 10/28/2024 06:47:39 10/28/2024 06:47:39 Pending Labs Complete 10/28/2024 06:53:19 10/28/2024 07:36:28 Lab Complete 10/28/2024 06:53:19 10/28/2024 07:12:39 Urine Collect Complete 10/28/2024 06:53:19 10/28/2024 07:12:39 RN Exam Complete 10/28/2024 06:53:59 10/28/2024 06:53:59 10/28/2024 06:53:59 Bed Assign Complete 10/28/2024 06:54:06 10/28/2024 06:54:06 10/28/2024 06:54:06 Dr Exam Complete 10/28/2024 06:54:06 10/28/2024 07:02:35 10/28/2024 07:02:35 Registration Request 10/28/2024 07:02:35 Dr Exam Complete 10/28/2024 07:08:31 10/28/2024 07:08:31 10/28/2024 07:08:31 CT Complete 10/28/2024 07:12:47 10/28/2024 08:01:41 10/28/2024 08:22:16 Pending Labs Complete 10/28/2024 07:12:47 10/28/2024 07:55:28 Lab Complete 10/28/2024 07:12:47 10/28/2024 07:55:28 Meds Admin Complete 10/28/2024 07:12:47 10/28/2024 07:27:16 Pending Labs Complete 10/28/2024 07:32:20 10/28/2024 07:32:20 10/28/2024 07:55:28 Lab Complete 10/28/2024 07:32:20 10/28/2024 07:32:20 10/28/2024 07:55:28 Pending Labs Collected 10/28/2024 07:36:28 10/28/2024 07:36:28 Lab Collected 10/28/2024 07:36:28 10/28/2024 07:36:28 Pending Labs Complete 10/28/2024 07:37:15 10/28/2024 07:37:15 10/28/2024 07:37:15 Patient Care Complete 10/28/2024 09:11:25 10/28/2024 09:29:27 Discharge Complete 10/28/2024 09:14:41 10/28/2024 09:31:16 10/28/2024 09:31:16 Transfer Complete 10/28/2024 09:31:16 10/28/2024 09:31:16 10/28/2024 09:31:16 ADDRESS: [address] [place] [id number] PHYS DOC NOTES: MEDICAL INFORMATION: Prescriptions Given: New Medications [facility]/pharmacy #[id number], [address], [place] [id number], [phone] cephalexin (cephalexin 500 mg Cap) 1 Capsules By Mouth every 12 hours for 7 Days. Refills: 0. naproxen (naproxen 500 mg Tab) 1 Tablets By Mouth 2 times a day for 10 Days. Refills: 0. phenazopyridine (Pyridium 100 mg Tab) 1 Tablets By Mouth 3 times a day for 3 Days. Refills: 0. tamsulosin (Flomax 0.4 mg Cap) 1 Capsules By Mouth every day. Refills: 0. Medications to Continue Taking That Have Changed [facility]/pharmacy #[id number], [address], [place] [id number], [phone] START: ondansetron (ondansetron 4 mg Dis Tab) 1 Tablets By Mouth every 6 hours as needed Nausea/Vomiting. Refills: 0. Other Medications START: ondansetron (Zofran ODT 4 mg Tab-Dis) 1 Tablets By Mouth every 8 hours as needed Nausea/Vomiting. Refills: 0. Medications to Continue with No Changes Other Medications clonidine (cloNIDine 0.2 mg Tab) 2 Tablets By Mouth once a day (at bedtime). docusate (Colace 100 mg Cap) 1 Capsules By Mouth every day as needed for constipation. Refills: 0. drospirenone-ethinyl estradiol (Vestura 3 mg-0.02 mg oral tablet) polyethylene glycol 3350 (Miralax 3350 17 gram packet) 17 Gram By Mouth every day. Refills: 1. PATIENT EDUCATION INFORMATION: Instructions: Urinary Tract Infection, Adult; Kidney Stones Follow up: With: Address: When: BRIDGET BENITO In 3 days 10/31/2024 Comments: Please call urology office to set up close follow-up appointment. Take medications as directed. Strain all urine. Return to ED if symptoms worsen or new symptoms arise. With: Address: When: Jenn Urban [address] [place] [address], [address] [place] [phone] Business (1) In 3 days 10/31/2024 DIAGNOSIS: Kidney stone on right side; UTI (urinary tract infection) Normal [facility] ED Patient Summaryon 025 ED Patient Summary ED Patient Summary [address] [address] Patient Discharge Instructions Person Information Name: SHERIE RIZVI Age: 24 Years Arrival Date: 10/28/2024 06:45:36 Discharge Diagnosis: Kidney stone on right side; UTI (urinary tract infection) Primary Care Physician: Jenn Urban MD Provider Information Primary Provider: Luís Greenfield DO Advanced Senior Investment Manager:Param Kingsley PA-C The exam and treatment you received in the Emergency Department were for an urgent problem and are not intended as complete care. It is important that you follow up with a doctor, nurse practitioner, or physician???s legal administrative assistant for ongoing care. If your symptoms become worse or you do not improve as expected and you are unable to reach your usual health care provider, you should return to the Emergency Department. We are available 24 hours a day. SHERIE RIZVI has been given the following list of patient education materials, prescriptions and follow-up instructions: Follow-up Instructions: With: Address: When: BRIDGET NKSHAI In 3 days 10/31/2024 Comments: Please call urology office to set up close follow-up appointment. Take medications as directed. Strain all urine. Return to ED if symptoms worsen or new symptoms arise. With: Address: When: Jenn Urban [address] [place] [address] Business (1) In 3 days 10/31/2024 In the event that this physician does not participate in your insurance network, please consult with your insurance company to find a nearby participating provider. Patient Education Materials: Urinary Tract Infection, Adult; Kidney Stones A MESSAGE TO ALL PATIENTS REGARDING OPIOIDS PRESCRIPTION OPIOIDS: WHAT YOU NEED TO KNOW Prescription opioids can be used to help relieve nwjipvcz-zy-nfjkgi pain and are often prescribed following a [...] community drug take-back program or your pharmacy mail-jaci (more content not included)... Normal [facility] Extra Blueon 10-28-2024 Tube Collected Plasma Yes Invalid Interpretation Code [facility] Comment on above: Performed By: #### 1 [id number] #### [facility] Laboratory [address] [place] [address] HEMATOLOGYOrdered By: SYSTEM SYSTEM on 10-28-2024 Basophils/100 WBC (Bld) 0.3 % Normal 0.0 - 2.0 % Remisol Heme Basophils/Leukocytes Auto (Bld) [Pure # fraction] 0.0 E9/L Normal 0.0 - 0.2 E9/L Remisol Heme Eosinophils (Bld) [#/Vol] 0.1 E9/L Normal 0.0 - 0.5 E9/L Remisol Heme Eosinophils/100 WBC (Bld) 1.2 % Normal 0.0 - 8.0 % Remisol Heme Erythrocyte distribution width (RBC) [Ratio] 13.8 % Normal 10.9 - 14.2 % Remisol Heme Hematocrit (Bld) [Volume fraction] 38.7 % Normal 34.0 - 46.0 % Remisol Heme Hemoglobin (Bld) [Mass/Vol] 13.1 g/dL Normal 12.0 - 16.0 gm/dL Remisol Heme Lymphocytes (Bld) [#/Vol] 2.3 E9/L Normal 1.0 - 4.0 E9/L Remisol Heme Lymphocytes/100 WBC (Bld) 22.2 % Normal 14.0 - 50.0 % Remisol Heme MCH (RBC) [Entitic mass] 29.3 pg Normal 27.0 - 34.0 pg Remisol Heme MCHC (RBC) [Mass/Vol] 33.8 g/dL Normal 31.4 - 36.0 gm/dL Remisol Heme MCV (RBC) [Entitic vol] 86.6 fL Normal 80.0 - 100.0 fL Remisol Heme Monocytes (Bld) [#/Vol] 0.6 E9/L Normal 0.2 - 1.0 E9/L Remisol Heme Monocytes/100 WBC (Bld) 6.2 % Normal 4.0 - 14.0 % Remisol Heme Neutrophils (Bld) [#/Vol] 7.2 E9/L Normal 2.0 - 7.5 E9/L Remisol Heme Neutrophils/100 WBC (Bld) 70.1 % Normal 36.0 - 75.0 % Remisol Heme Platelet mean volume (Bld) [Entitic vol] 8.3 fL Normal 6.4 - 10.8 fL Remisol Heme Platelets (Bld) [#/Vol] 303.0 E9/L Normal 150.0 - 500.0 E9/L Remisol Heme RBC (Bld) [#/Vol] 4.5 E12/L Normal 4.3 - 5.9 E12/L Re misol Heme WBC corrected for nucl RBC Auto (Bld) [#/Vol] 10.2 E9/L Normal 4.0 - 11.0 E9/L Remisol Heme Hep Func Panelon 10-28-2024 Albumin [Mass/Vol] 4.5 g/dL Normal 3.3-5.0 [facility] Comment on above: Performed By: #### 2 [id number] #### [facility] Laboratory [address] [place] [address] Albumin/Globulin (S) [Mass conc ratio] 1.9 Normal 1.1-2.2 [facility] Comment on above: Performed By: #### 2 [id number] #### [facility] Laboratory [address] [place] [address] ALP [Catalytic activity/Vol] 63 Int._Unit/L Normal 21-98 [facility] Comment on above: Performed By: #### 2 [id number] #### [facility] Laboratory [address] [place] [address] ALT No additional P-5'-P [Catalytic activity/Vol] 10 Int._Unit/L Normal 6-46 [facility] Comment on above: Performed By: #### 2 [id number] #### [facility] Laboratory [address] [place] [address] AST [Catalytic activity/Vol] 14 Int._Unit/L Normal 5-43 [facility] Comment on above: Performed By: #### 2 [id number] #### [facility] Laboratory [address] [place] [address] Bilirubin [Mass/Vol] 0.8 mg/dL Normal 0.0-1.1 [facility] Comment on above: Performed By: #### 2 [id number] #### [facility] Laboratory [address] [place] [address] Bilirubin.direct [Mass/Vol] 0.1 mg/dL Normal 0.0-0.4 [facility] Comment on above: Performed By: #### 2 [id number] #### [facility] Laboratory [address] [place] [address] Bilirubin.indirect [Mass or moles/Vol] 0.7 mg/dL Normal 0.1-0.9 [facility] Comment on above: Performed By: #### 2 [id number] #### [facility] Laboratory [address] [place] [address] Globulin (S) [Mass/Vol] 2.4 g/dL Normal 1.4-4.0 [facility] Comment on above: Performed By: #### 2 [id number] #### [facility] Laboratory [address] [place] [address] Protein [Mass/Vol] 6.9 g/dL Normal 6.0-7.8 [facility] Comment on above: Performed By: #### 2 [id number] #### [facility] [address] [place] [address] Lipase Levelon 10-28-2024 Lipase [Catalytic activity/Vol] 44 U/L Normal 13-58 [facility] Comment on above: Performed By: #### 2 [id number] #### [facility] Laboratory [address] [place] [address] SEROLOGYOrdered By: Dionne peter on 10-28-2024 HCG.beta subunit (U) [Moles/Vol] Negative Normal [facility] Man Sero U BetaHcg Qualon 10-28-2024 HCG.beta subunit (U) [Moles/Vol] Negative Normal [facility] Comment on above: Performed By: #### 2 [id number] #### [facility] Laboratory [address] [place] [address] UA with Cult Rflxon 10-28-19 25 Bacteria Auto Ql (U) 1+ /HPF Abnormal Trace Fish [facility] Comment on above: Performed By: #### 4 [id number] #### [facility] [address] [place] [address] Bilirubin Ql (U) Negative Normal Negative [facility] Comment on above: Performed By: #### 4 [id number] #### [facility] [address] [place] [address] Calcium oxalate crystals Computer assisted Ql (U) Present Abnormal [facility] Comment on above: Performed By: #### 4 [id number] #### [facility] [address] [place] [address] Clarity (U) Turbid Abnormal Clear [facility] Comment on above: Performed By: #### 4 [id number] #### [facility] [address] [place] [address] Color (U) Yellow Normal Yellow [facility] Comment on above: Result Comment: Micr oscopic readings are only performed on those samples that meet specific criteria set forth by [facility] Laboratory. Performed By: #### 4 [id number] #### [facility] [address] [place] [address] Epithelial cells.squamous Auto (Urine sed) [#/Area] 0-2 Invalid Interpretation Code [facility] Comment on above: Performed By: #### 4 [id number] #### [facility] [address] [place] [address] Glucose Ql (U) Negative Normal Negative [facility] Comment on above: Performed By: #### 4 [id number] #### [facility] [address] [place] [address] Hemoglobin Auto test strip (U) [Mass/Vol] 3+ mg/dL Abnormal Negative [facility] Comment on above: Performed By: #### 4 [id number] #### [facility] [address] [place] [address] Ketones Auto test strip Ql (U) Negative Normal Negative [facility] Comment on above: Performed By: #### 4 [id number] #### [facility] [address] [place] [address] Leukocyte esterase Auto test strip Ql (U) 75 Shaylee/uL Abnormal Negative [facility] Comment on above: Performed By: #### 4 [id number] #### [facility] [address] [place] [address] Mucus Auto Ql (U) 1+ [id number] Abnormal Negative [facility] Comment on above: Performed By: #### 4 [id number] #### [facility] [address] [place] [address] Nitrite Auto test strip Ql (U) Negative Normal Negative [facility] Comment on above: Performed By: #### 4 [id number] #### [facility] Laboratory [address] [place], [place] [address] 15033 pH (U) 5.5 [pH] Invalid Interpretation Code 5.0-9.0 [facility] Comment on above: Performed By: #### 4 [id number] #### [facility] [address] [place] [address] 59091 Protein Ql (U) 1+ mg/dL Abnormal Negative [facility] Comment on above: Performed By: #### 4 [id number] #### [facility] [address] [place] [address] 62235 RBC Ql (U) >75 Abnormal 0-3 [facility] Comment on above: Performed By: #### 4 [id number] #### [facility] [address] [place] [address] 37742 Specific gravity (U) [Rel density] 1.030 Invalid Interpretation Code 1.005-1.030 [facility] Comment on above: Performed By: #### 4 [id number] #### [facility] [address] [place] [address] 84439 Urobilinogen (U) [Mass/Vol] Negative Normal Negative [facility] Comment on above: Performed By: #### 4 [id number] #### [facility] [address] [place] [address] 43027 WBC Auto (Urine sed) [#/Area] 16-25 Abnormal 0-5 [facility] Comment on above: Performed By: #### 4 [id number] #### [facility] [address] [place] [address] 82260 Type of Urine collection method Clean Catch Normal [facility] Comment on above: Performed By: #### 4 [id number] #### [facility] [address] [place] [address] 11508 URINALYSISOrdered By: SYSTEM SYSTEM on 10-28-2024 Bacteria Auto Ql (U) 1+ /HPF Invalid Interpretation Code Trace/HPF [facility] UA Auto SS Bilirubin Ql (U) Negative Normal Negativemg/dL [facility] UA Auto SS Calcium oxalate crystals Computer assisted Ql (U) Present graded/HPF Invalid Interpretation Code [facility] UA Auto SS Clarity (U) Turbid *ABN* (10/28/24 7:01 AM) Invalid Interpretation Code Clear [facility] UA Auto SS Color (U) Yellow 1 (10/28/24 7:01 AM) Normal Yellow [facility] UA Auto SS Comment on above: Interpretive Data: M icroscopic readings are only performed on those samples that meet specific criteria set forth by [facility]. Epithelial cells.squamous Auto (Urine sed) [#/Area] 0-2 graded/HPF Invalid Interpretation Code [facility] UA Auto SS Glucose Ql (U) Negative Normal Negativemg/dL [facility] UA Auto SS Hemoglobin Auto test strip (U) [Mass/Vol] 3+ mg/dL Invalid Interpretation Code Negativemg/dL [facility] UA Auto SS Ketones Auto test strip Ql (U) Negative Normal Negativemg/dL [facility] UA Auto SS Leukocyte esterase Auto test strip Ql (U) 75 Shaylee/uL Shaylee/uL Invalid Interpretation Code NegativeLeu/uL [facility] UA Auto SS Mucus Auto Ql (U) 1+ graded/LPF Invalid Interpretation Code Negativegraded/ LPF [facility] UA Auto SS Nitrite Auto test strip Ql (U) Negative Normal Negativemg/dL [facility] UA Auto SS pH (U) 5.5 *NA* (10/28/24 7:01 AM) Invalid Interpretation Code 5.0 - 9.0 [facility] UA Auto SS Protein Ql (U) 1+ mg/dL Invalid Interpretation Code Negativemg/dL [facility] UA Auto SS RBC Ql (U) >75 graded/HPF Invalid Interpretation Code 0-3graded/HPF [facility] UA Auto SS Specific gravity (U) [Rel density] 1.030 *NA* (10/28/24 7:01 AM) Invalid Interpretation Code 1.005 - 1.030 [facility] UA Auto SS Urobilinogen (U) [Mass/Vol] Negative Normal Negativemg/dL [facility] UA Auto SS WBC Auto (Urine sed) [#/Area] 16-25 graded/HPF Invalid Interpretation Code 0-5graded/HPF [facility] UA Auto SS URINALYSISOrdered By: Rey Barrera on 10-28-2024 UA Spec Desc Clean Catch (10/28/24 7:01 AM) Normal [facility] UA Auto SS Work Phone: eGFRon 10-28-2024 eGFR 107 mL/min/1.73 m2 Normal >=59 [facility] Comment on above: Performed By: #### 1 [id number] #### [facility] [address] [place] [address] MRI Breast w/o and w/ Contra st Bilaton 10-16-2024 MRI Breast w/o and w/ Contrast, Bilat Exam Date/Time: 12/19/2023 15:36 EDT Reason for Exam: Right breast mass findings discordant with imaging previously taken;Other (please specify) Addendum SYSTEM TYPOGRAPHICAL ERROR IN THE ORIGINAL REPORT TEMPLATE. Please disregard the sentence, Dynamic Breast MR imaging was then performed with fat sat pre and post-T1 weighted images after the patient received 20 cc of MultiHance gadolinium contrast. in the TECHNIQUE paragraph. The actual contrast and dose is included in the attached exam data. Ordering Provider: Luís Perla FINAL REPORT Dictated: 10/16/2024 3:17 pm Jean-Pierre Serrano MD Signed (Electronic Signature): 10/16/2024 3:17 pm Signed by: Jean-Pierre Serrano MD Transcribed by: VALERIE Technologist: TESS Assessment: BI-RADS Category 1-Negative Recommendation: Normal interval follow-up Report IMPRESSION: BIRADS 1 NEGATIVE, NORMAL INTERVAL [...] images were generated at the dedicated breast [employer] workstation FINDINGS: Report Both breasts are heterogeneously dense with moderate background parenchymal enhancement. There are no suspicious masses, areas of abnormal masslike enhancement, suspicious lymphadenopathy, or other findings of concern identified. CAD analysis was performed and used in the interpretation. Board Certified Radiologists. Accredited by the ACR and FDA. MAMMOGRAPHY IS VERY IMPORTANT TO YOUR HEALTH. THE CURRENT [employer] GUIDELINES RECOMMENDS ANNUAL MAMMOGRAPHY BEGINNING AT AGE 40. THIS FACILITY UTILIZES A REMINDER SYSTEM TO ENSURE ALL PATIENTS RECEIVE REMINDER NOTIFICATIONS AT THE APPROPRIATE TIME BASED ON THE RECOMMENDATIONS OF THIS EXAM. \X09\ Ordering Provider: Luís Perla FINAL REPORT Dictated: 12/22/2023 1:03 pm Jean-Pierre Serrano MD Signed (Electronic Signature): 12/22/2023 1:03 pm Signed by: Jean-Pierre Serrano MD Transcribed by: VALERIE Technologist: TESS Assessment: BI-RADS Category 1-Negative Recommendation: Normal interval follow-up Technical Comments [employer] Contrast amount in ml's: 5.5 Report last revised on 10/16/2024 15:17 EST by Jean-Pierre Serrano MD [facility] C Urineon 10-12-2024 Bacteria identified Cx Nom (U) Microbiology PROCEDURE: Urine Culture [R1] SOURCE: U CleanCatch BODY SITE: COLLECTED DATE/TIME: 10/10/2024 14:04 EST RECEIVED DATE/TIME: 10/10/2024 16:41 EST START DATE/TIME: 10/10/2024 16:41 EST FREE TEXT SOURCE: Yessy Feliciano Elizabeth L FINAL REPORTS Final Report [] Verified Date/Time: 10/12/2024 10:08 EST 75,000 cfu/ml Escherichia coli <10,000 cfu/ml Mixed skin contaminants SUSCEPTIBILITY RESULTS __ LEGEND: S=Susceptible, N/R=Not Reported, Blank=Data not available, or drug not advisable or tested, I=Intermediate, ESBL=Extended spectrum beta-lactamase, R=Resistant, TFG=Thymidine-dependen t strain, АНДРЕЙ=Beta-lactamase positive, ÁLVARO=mcg/m;(mg/L), S*=Predicted susceptible interp, R*=Predicted resistant interp EC Antibiotic ÁLVARO Dilutn ÁLVARO Interp Ampicillin <=8 S Ampicillin/ <=8/4 S Sulbactam Aztreonam <=4 S Cefazolin <=2 S Cefepime <=2 S Ceftazidime <=1 S Ceftazidime/ <=8 S Avibactam Ceftriaxone <=1 S Cefuroxime <=4 S Ciprofloxacin <=0.25 S Ertapenem <=0.5 S Gentamicin <=2 S Levofloxacin <=0.5 S Meropenem <=1 S Nitrofurantoin <=32 S Piperacillin/ <=8 S Tazobactam Tetracycline <=4 S Tobramycin <=2 S Trimethoprim/ >2/38 R Sulfa Performing Locations R1: This test was performed at: [facility], [address] [place] [address], [facility]- , , [facility] Comment on above: Performed By: #### 2 [id number] #### [facility] [address] [place] [address] Ambulatory Visit Summaryon 0 10-10-2024 Ambulatory Visit Summary Ambulatory Visit Summary SHERIE RIZVI :2000 Visit Date:10/10/2024 Ambulatory Visit Instructions Your Diagnosis Pyelonephritis Glucosuria UTI (urinary tract infection) Your Care Team Attending Physician - Cesar MARQUES, Yessy Arnett Primary Care Physician - Wilmar PIERCE, Jenn F This Is Your Medications List ciprofloxacin (ciprofloxacin 500 mg Tab) clonidine (cloNIDine 0.2 mg Tab) docusate (Colace 100 mg Cap) drospirenone-ethinyl estradiol (Vestura 3 mg-0.02 mg oral tablet) lidocaine topical (lidocaine Top 2% Gel 5 mL) magnesium citrate (magnesium citrate 8.85% Oral Liq 296 mL) methylphenidate (methylphenidate 54 mg/24 hr oral tablet, extended release) ondansetron (Zofran ODT 4 mg Tab-Dis) phenazopyridine (Pyridium 200 mg Tab) polyethylene glycol 3350 (Miralax 3350 17 gram packet) polyethylene glycol 3350 (polyethylene glycol 3350 Oral Pwdr for Recon) sertraline (sertraline 50 mg Tab) Procedures Performed Denies. Discharge Vitals Temperature (Oral) 36.9 ???C Heart Rate (Peripheral) 87 Respiratory Rate 18 Blood Pressure 108/80 Height 158 cm Height 62 in Weight 63.1 kg Weight 139.112 lb BMI 25.28 What to do next You Need to Schedule the Following Appointments Follow Up with JENN URBAN When: Where: Medications What How Much When Why Instructions New ciprofloxacin (ciprofloxacin 500 mg Tab) 1 Tablets By Mouth Every 12 hours Pyelonephritis Duration: 10 Days Pickup at [facility]/pharmacy #[id number] New docusate (Colace 100 mg Cap) 1 Capsules By Mouth Every day as needed for for constipation Pickup at [facility]/pharmacy #6173 New phenazopyridine (Pyridium 200 mg Tab) 1 Tablets By Mouth 3 times a day as needed for urinary pain Duration: 3 Days Refills: 1 Pickup at [facility]/pharmacy #6173 Changed polyethylene glycol 3350 (Miralax 3350 17 gram packet) 17 Gram By Mouth Every day Pickup at [facility]/pharmacy #6173 Changed polyethylene glycol 3350 (polyethylene glycol 3350 Oral Pwdr for Recon) 17 Gram By Mouth Every day dissolve in water before taking Unchanged clonidine (cloNIDine 0.2 mg Tab) 2 Tablets By Mouth Once a day (at bedtime) Unchanged drospirenone-ethinyl estradiol (Vestura 3 mg-0.02 mg oral tablet) Unchanged lidocaine topical (lidocaine Top 2% Gel 5 mL) 5 Milliliter Topical 3 times a day as needed for Pain Unchanged magnesium citrate (magnesium citrate 8.85% Oral Liq 296 mL) 150 Milliliter By Mouth 2 times a day Duration: 2 Doses may repeat in Unchanged methylphenidate (methylphenidate 54 mg/ 24 hr oral tablet, extended release) 1 Tablets By Mouth Once a day (in the morning) Unchanged ondansetron (Zofran ODT 4 mg Tab-Dis) 1 Tablets By Mouth Every 8 hours as needed for Nausea/Vomiting Unchanged sertraline (sertraline 50 mg Tab) 1 Tablets By Mouth Every day Pharmacy Information [facility]/pharmacy #[id number]: [address] [place], [place] [id number] [phone] Medications and Immunizations Administered Not Given influenza virus vaccine, inactivated, Patient Refuses Allergies No Known Allergies Problems Ongoing - Any problem that you are currently receiving treatment for. ADHD - Attention deficit disorder with hyperactivity Dense breasts Family history of breast cancer in female Glucosuria Pyelonephritis UTI (urinary tract infection) UTI symptoms Patient Survey You may receive a survey via text or e-mail asking about your office visit. Please share your experience with us by completing your survey. We appreciate your feedback and thank you for choosing us for your care. Education Materials Urinary Tract Infection, Adult A urinary tract [...] ? Not getting enough to drink, or n (more content not included)... Normal [facility] CBC w/ Auto Diffon 5 Basophils/100 WBC (Bld) 0.5 % Normal 0.0-2.0 [facility] Comment on above: Performed By: #### 2 [id number] #### [facility] [address] [place] [address] 79195 Basophils/Leukocytes Auto (Bld) [Pure # fraction] 0.1 E9/L Normal 0.0-0.2 [facility] Comment on above: Performed By: #### 2 [id number] #### [facility] [address] [place] [address] Eosinophils (Bld) [#/Vol] 0.2 E9/L Normal 0.0-0.5 [facility] Comment on above: Performed By: #### 2 [id number] #### [facility] [address] [place] [address] Eosinophils/100 WBC (Bld) 1.5 % Normal 0.0-8.0 [facility] Comment on above: Performed By: #### 2 [id number] #### [facility] [address] [place] [address] Erythrocyte distribution width (RBC) [Ratio] 14.0 % Normal 10.9-14.2 [facility] Comment on above: Performed By: #### 2 [id number] #### [facility] [address] [place] [address] Hematocrit (Bld) [Volume fraction] 41.6 % Normal 34.0-46.0 [facility] Comment on above: Performed By: #### 2 [id number] #### [facility] [address] [place] [address] Hemoglobin (Bld) [Mass/Vol] 13.8 g/dL Normal 12.0-16.0 [facility] Comment on above: Performed By: #### 2 [id number] #### [facility] [address] [place] [address] Lymphocytes (Bld) [#/Vol] 2.7 E9/L Normal 1.0-4.0 [facility] Comment on above: Performed By: #### 2 [id number] #### [facility] [address] [place] [address] Lymphocytes/100 WBC (Bld) 20.1 % Normal 14.0-50.0 [facility] Comment on above: Performed By: #### 2 [id number] #### [facility] [address] [place] [address] MCH (RBC) [Entitic mass] 28.8 pg Normal 27.0-34.0 [facility] Comment on above: Performed By: #### 2 [id number] #### [facility] [address] [place] [address] 98040 MCHC (RBC) [Mass/Vol] 33.3 g/dL Normal 31.4-36.0 [facility] Comment on above: Performed By: #### 2 [id number] #### [facility] [address] [place] [address] 91376 MCV (RBC) [Entitic vol] 86.6 fL Normal 80.0-100.0 [facility] Comment on above: Performed By: #### 2 [id number] #### [facility] [address] [place] [address] Monocytes (Bld) [#/Vol] 0.6 E9/L Normal 0.2-1.0 [facility] Comment on above: Performed By: #### 2 [id number] #### [facility] [address] [place] [address] Neutrophils (Bld) [#/Vol] 9.9 E9/L High 2.0-7.5 [facility] Comment on above: Performed By: #### 2 [id number] #### [facility] [address] [place] [address] Neutrophils/100 WBC (Bld) 73.6 % Normal 36.0-75.0 [facility] Comment on above: Performed By: #### 2 [id number] #### [facility] [address] [place] [address] Platelet 369.0 E9/L Normal 150.0-500.0 [facility] Comment on above: Performed By: #### 2 [id number] #### [facility] [address] [place] [address] Platelet mean volume (Bld) [Entitic vol] 8.6 fL Normal 6.4-10.8 [facility] Comment on above: Performed By: #### 2 [id number] #### [facility] [address] [place] [address] RBC (Bld) [#/Vol] 4.8 E12/L Normal 4.3-5.9 [facility] Comment on above: Performed By: #### 2 [id number] #### [facility] [address] [place] [address] WBC corrected for nucl RBC Auto (Bld) [#/Vol] 13.5 E9/L High 4.0-11.0 [facility] Comment on above: Performed By: #### 2 [id number] #### [facility] [address] [place] [address] CHEMISTRYOrdered By: SYSTEM SYSTEM on 10-10-2024 Albumin [Mass/Vol] 4.7 g/dL Normal 3.3 - 5.0 gm/dL R emisol Chem Albumin/Globulin [Mass ratio] 1.7 {ratio} Normal 1.1 - 2.2 Remisol Chem ALP [Catalytic activity/Vol] 68 [iU]/d Normal 21 - 98 Int._Unit/L Remisol Chem ALT No additional P-5'-P [Catalytic activity/Vol] 14 [iU]/d Normal 6 - 46 Int._Unit/L Remisol Chem Anion gap [Moles/Vol] 11 mmol/L Normal 6 - 16 mEq/L Remisol Chem AST [Catalytic activity/Vol] 16 [iU]/d Normal 5 - 43 Int._Unit/L Remisol Chem Bilirubin [Mass/Vol] 1.2 mg/dL High 0.0 - 1.1 mg/dL Remisol Chem Calcium [Mass/Vol] 9.9 mg/dL Normal 8.9 - 11. 1 mg/dL Remisol Chem Chloride [Moles/Vol] 105 mmol/L Normal 101 - 1 11 mmol/L Remisol Chem CO2 [Moles/Vol] 26 mmol/L Normal 21 - 31 mmol/L Remis ol Chem Creatinine [Mass/Vol] 0.8 mg/dL Normal 0.5 - 1.3 mg/dL Remisol Chem eGFR 107 mL/min/1.73 m2 Normal >=59mL/mi n/1.73 m2 Remisol Chem Globulin (S) [Mass/Vol] 2.8 g/dL Normal 1.4 - 4.0 gm/dL Remisol Chem Glucose [Mass/Vol] 95 mg/dL Normal 55 - 199 mg/dL Re misol Chem Potassium [Moles/Vol] 4.0 mmol/L Normal 3.5 - 5.3 mmol/L Remisol Chem Protein [Mass/Vol] 7.5 g/dL Normal 6.0 - 7.8 gm/dL R emisol Chem Sodium [Moles/Vol] 138 mmol/L Normal 135 - 145 mmol/L Remisol Chem Urea nitrogen [Mass/Vol] 12 mg/dL Normal 5 - 21 mg/dL Remisol Chem Urea nitrogen/Creatinine [Mass ratio] 15 mg/mg Normal 10 - 20 Remisol Chem CMPon 10-10-2024 Albumin [Mass/Vol] 4.7 g/dL Normal 3.3-5.0 [facility] Comment on above: Performed By: #### 2 [id number] #### [facility] [address] [place] [address] Albumin/Globulin (S) [Mass conc ratio] 1.7 Normal 1.1-2.2 [facility] Comment on above: Performed By: #### 2 [id number] #### [facility] [address] [place] [address] ALP [Catalytic activity/Vol] 68 Int._Unit/L Normal 21-98 [facility] Comment on above: Performed By: #### 2 [id number] #### [facility] [address] [place] [address] ALT No additional P-5'-P [Catalytic activity/Vol] 14 Int._Unit/L Normal 6-46 [facility] Comment on above: Performed By: #### 2 [id number] #### [facility] [address] [place] [address] Anion gap [Moles/Vol] 11 mmol/L Normal 6-16 [facility] Comment on above: Performed By: #### 2 [id number] #### [facility] [address] [place] [address] AST [Catalytic activity/Vol] 16 Int._Unit/L Normal 5-43 [facility] Comment on above: Performed By: #### 2 [id number] #### [facility] [address] [place] [address] Bilirubin [Mass/Vol] 1.2 mg/dL High 0.0-1.1 [facility] Comment on above: Performed By: #### 2 [id number] #### [facility] [address] [place] [address] Calcium [Mass/Vol] 9.9 mg/dL Normal 8.9-11.1 [facility] Comment on above: Performed By: #### 2 [id number] #### [facility] [address] [place] [address] Chloride [Moles/Vol] 105 mmol/L Normal 101-111 [facility] Comment on above: Performed By: #### 2 [id number] #### [facility] [address] [place] [address] CO2 [Moles/Vol] 26 mmol/L Normal 21-31 [facility] Comment on above: Performed By: #### 2 [id number] #### [facility] [address] [place] [address] Creatinine [Mass/Vol] 0.8 mg/dL Normal 0.5-1.3 [facility] Comment on above: Performed By: #### 2 [id number] #### [facility] [address] [place] [address] Globulin (S) [Mass/Vol] 2.8 g/dL Normal 1.4-4.0 [facility] Comment on above: Performed By: #### 2 [id number] #### [facility] [address] [place] [address] Glucose [Mass/Vol] 95 mg/dL Normal 55-199 [facility] Comment on above: Performed By: #### 2 [id number] #### [facility] [address] [place] [address] Potassium [Moles/Vol] 4.0 mmol/L Normal 3.5-5.3 [facility] Comment on above: Performed By: #### 2 [id number] #### [facility] [address] [place] [address] Protein [Mass/Vol] 7.5 g/dL Normal 6.0-7.8 [facility] Comment on above: Performed By: #### 2 [id number] #### [facility] [address] [place] [address] Sodium [Moles/Vol] 138 mmol/L Normal 135-145 [facility] Comment on above: Performed By: #### 2 [id number] #### [facility] [address] [place] [address] Urea nitrogen [Mass/Vol] 12 mg/dL Normal 5-21 [facility] Comment on above: Performed By: #### 2 [id number] #### [facility] [address] [place] [address] Urea nitrogen/Creatinine [Mass ratio] 15 No Units Normal 10-20 [facility] Comment on above: Performed By: #### 2 [id number] #### [facility] [address] [place] [address] Family Medicine Office/Clini c Noteon 10-10-2024 Family Medicine Office/Clinic Note Family Medicine Office/Clinic Note Chief Complaint uti symptoms, right ear pain HPI Staff 24 year old female presents with ear pain/uti symptoms, increased discharge and odor Frequency- yes Urgency- yes Small volume void- yes Dysuria- yes Pressure- yes Back pain- no Nocturia- no Fever/chills- no Nausea/vomiting- no UTI or other reason for antbx's last 30 days- no onset this morning OTC- Azo Fevers: no Sinus congestion: no Sneezing: no Ear pain: right ear Ear itching, popping, fullness, ringing, muffled hearing: muffled Ear drainage: yes Sore throat:no Ear pain worse with chewing: no DIfficulty hearing: muffled onset- 10 days History of Present Illness Patient goes to [facility]- Patient denies pain but she has UTIs so frequently. Patient denies any history of diabetes. She does report an occasional marijuana use. No recent vomiting. She reports mild right-sided back pain. She does have a history of kidney stones. Patient has been using Azo for a few days. A lot of bladder pressure reported this morning with no fever. Patient reports chronic constipation and GI issues. She is due for colonoscopy but she has already had an upper endoscopy done. She has been to the ER several times for abdominal pain and has had a CAT scan. 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 Review of Systems PHQ Score Initial Depression Screen Score: 0 SCORE Physical Exam Vitals & Measurements T: 36.9 ???C(Oral) HR: 87(Peripheral) RR: 18 BP: 108/80 SpO2: 94% HT: 62 in HT: 158 cm WT: 63.1 kg WT: 139.112 lb BMI: 25.28 General: alert, no acute distress, well appearing, _pleasant, young female room 2 Skin: warm, dry, intact Head: no trauma, normocephalic Neck: Trachea midline, no adenopathy, no tenderness Eye: normal conjunctiva, sclera clear, _PERRLA ENMT: TM's clear, ear canals with dry flaky patches of skin consistent with the eczema versus psoriasis type irritation, no drainage , no erythema or edema noted, TMs are normal oral mucosa moist, no pharyngeal erythema or exudate, normal dentition Cardiovascular: regular rate and rhythm, normal peripheral perfusion, no edema Respiratory: Lungs CTA, respirations non labored Chest wall: no deformity, non tender Gastrointestinal: soft, non distended, no guarding. Positive CVA tenderness on the right, mild lower suprapubic tenderness otherwise abdomen is soft with no rebound rigidity or guarding Back: No tenderness, Normal ROM, Normal alignment. Neurological: oriented x 4, LOC appropriate for age, CN II-XII intact, motor strength equal & normal bilaterally, sensation equal & normal bilaterally, speech normal Psychiatric: cooperative? , affect appropriate for age? , normal? judgement, normal? psychiatric thoughts. Assessment/Plan Urinalysis may be slightly abnormal due to Pyridium use but patient's urinalysis in office shows 250 glucose positive, greater than 300 protein, ketones were positive, positive for nitrates and leukocyte esterase, pH was 5.0, will treat for complicated UTI with Cipro at this time. Patient is on Depo for contraception. I strongly encouraged her to follow-up with PHARMACEUTICAL SCIENTIST. 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 Denies any outbreak today. Strongly encouraged proper hygiene and oral hydration with water. Encouraged following up with the glucose in the urine with her primary care provider. Encouraged low glucose fluid and avoiding juices and pop. Patient CBC and CMP was collected today will follow-up with patient possibly by the end of the day versus tomorrow with lab results. Culture will be sent. She will be started on Cipro due to the complexity of the UTI. Pyridium as needed for pain sent to the pharmacy as well, strongly encouraged following up with digestive health as well due to chronic constipation. MiraLAX and Colace daily encouraged. Patient was otherwise well-appearing and ambulatory at time of discharge. offered STD testing - she declined. 1. Pyelonephritis (N12: Tubulo-interstitial nephritis, not specified as acute or chronic) Ordered: ciprofloxacin, 500 mg = 1 tab(s), Oral, q12hr, X 10 day(s), # 20 tab(s), Refills(s) 0, Pharmacy: [facility]/pharmacy #[id number], 158, cm, 10/10/24 13:53:00 EST, Height/Length Dosing, 63.1, kg, 10/10/24 13:53:00 EST, Weight Dosing CBC w/ Auto Diff Comprehensive Metabolic Panel 2. Glucosuria (R81: Glycosuria) Ordered: CBC w/ Auto Diff Comprehensive Metabolic Panel 3. UTI (urinary tract infection) (N39.0: Urinary tract infection, site not specified) Ordered: CBC w/ Auto Diff Comprehensive Metabolic Panel Orders: docusate, 100 mg = 1 cap(s), Oral, Daily, PRN for constipation, # 100 cap(s), Refills(s) 0, Pharmacy: [facility]/pharmacy #[id number], 158, cm, 10/10/24 13:53:00 EST, Height/Length Dosing, 63.1, kg, 10/10/24 13:53:00 EST, Weight Dosing phenazopyridine, 200 mg = 1 tab(s), Oral, TID, PRN urinary pain, X 3 day(s), # 9 tab(s), Refills(s) 1, Pharmacy (more content not included)... Normal [facility] Comment on above: Result Comment: Elec tronically Signed By: Yessy Feliciano\.br\Date and Time Signed: 10/10/24 14:44 EST HEMATOLOGYOrdered By: SYSTEM SYSTEM on 10-10-2024 Basophils/100 WBC (Bld) 0.5 % Normal 0.0 - 2.0 % Remisol Heme Basophils/Leukocytes Auto (Bld) [Pure # fraction] 0.1 E9/L Normal 0.0 - 0.2 E9/L Remisol Heme Eosinophils (Bld) [#/Vol] 0.2 E9/L Normal 0.0 - 0.5 E9/L Remisol Heme Eosinophils/100 WBC (Bld) 1.5 % Normal 0.0 - 8.0 % Remisol Heme Erythrocyte distribution width (RBC) [Ratio] 14.0 % Normal 10.9 - 14.2 % Remisol Heme Hematocrit (Bld) [Volume fraction] 41.6 % Normal 34.0 - 46.0 % Remisol Heme Hemoglobin (Bld) [Mass/Vol] 13.8 g/dL Normal 12.0 - 16.0 gm/dL Remisol Heme Lymphocytes (Bld) [#/Vol] 2.7 E9/L Normal 1.0 - 4.0 E9/L Remisol Heme Lymphocytes/100 WBC (Bld) 20.1 % Normal 14.0 - 50.0 % Remisol Heme MCH (RBC) [Entitic mass] 28.8 pg Normal 27.0 - 34.0 pg Remisol Heme MCHC (RBC) [Mass/Vol] 33.3 g/dL Normal 31.4 - 36.0 gm/dL Remisol Heme MCV (RBC) [Entitic vol] 86.6 fL Normal 80.0 - 100.0 fL Remisol Heme Monocytes (Bld) [#/Vol] 0.6 E9/L Normal 0.2 - 1.0 E9/L Remisol Heme Monocytes/100 WBC (Bld) 4.3 % Normal 4.0 - 14.0 % Remisol Heme Neutrophils (Bld) [#/Vol] 9.9 E9/L High 2.0 - 7.5 E9/L Remisol Heme Neutrophils/100 WBC (Bld) 73.6 % Normal 36.0 - 75.0 % Remisol Heme Platelet 369.0 E9/L Normal 150.0 - 500.0 E9/L Remisol Heme Platelet mean volume (Bld) [Entitic vol] 8.6 fL Normal 6.4 - 10.8 fL Remisol Heme RBC (Bld) [#/Vol] 4.8 E12/L Normal 4.3 - 5.9 E12/L Re misol Heme WBC corrected for nucl RBC Auto (Bld) [#/Vol] 13.5 E9/L High 4.0 - 11.0 E9/L Remisol Heme eGFRon 10-10-2024 eGFR 107 mL/min/1.73 m2 Normal >=59 [facility] Comment on above: Performed By: #### 1 [id number] #### [facility] [address] [place] [address] BMPon 07-29-2024 Anion gap [Moles/Vol] 10 mmol/L Normal 6-16 [facility] Comment on above: Performed By: #### 2 [id number] #### [facility] [address] [place] [address] Calcium [Mass/Vol] 9.6 mg/dL Normal 8.9-11.1 [facility] Comment on above: Performed By: #### 2 [id number] #### [facility] [address] [place] [address] Chloride [Moles/Vol] 105 mmol/L Normal 101-111 [facility] Comment on above: Performed By: #### 2 [id number] #### [facility] [address] [place] [address] CO2 [Moles/Vol] 26 mmol/L Normal 21-31 [facility] Comment on above: Performed By: #### 2 [id number] #### [facility] [address] [place] [address] Creatinine [Mass/Vol] 0.9 mg/dL Normal 0.5-1.3 [facility] Comment on above: Performed By: #### 2 [id number] #### [facility] [address] [place] [address] Glucose [Mass/Vol] 114 mg/dL Normal 55-199 [facility] Comment on above: Performed By: #### 2 [id number] #### [facility] [address] [place] [address] Potassium [Moles/Vol] 3.9 mmol/L Normal 3.5-5.3 [facility] Comment on above: Performed By: #### 2 [id number] #### [facility] [address] [place] [address] Sodium [Moles/Vol] 137 mmol/L Normal 135-145 [facility] Comment on above: Performed By: #### 2 [id number] #### [facility] [address] [place] [address] Urea nitrogen [Mass/Vol] 15 mg/dL Normal 5-21 [facility] Comment on above: Performed By: #### 2 [id number] #### [facility] [address] [place] [address] Urea nitrogen/Creatinine [Mass ratio] 17 No Units Normal 10-20 [facility] Comment on above: Performed By: #### 2 [id number] #### [facility] [address] [place] [address] CBC w/ Auto Diffon 4 Basophils/100 WBC (Bld) 0.4 % Normal 0.0-2.0 [facility] Comment on above: Performed By: #### 2 [id number] #### [facility] [address] [place] [address] Basophils/Leukocytes Auto (Bld) [Pure # fraction] 0.1 E9/L Normal 0.0-0.2 [facility] Comment on above: Performed By: #### 2 [id number] #### [facility] [address] [place] [address] Eosinophils (Bld) [#/Vol] 0.1 E9/L Normal 0.0-0.5 [facility] Comment on above: Performed By: #### 2 [id number] #### [facility] [address] [place] [address] Eosinophils/100 WBC (Bld) 0.9 % Normal 0.0-8.0 [facility] Comment on above: Performed By: #### 2 [id number] #### [facility] [address] [place] [address] Erythrocyte distribution width (RBC) [Ratio] 14.6 % High 10.9-14.2 [facility] Comment on above: Performed By: #### 2 [id number] #### [facility] [address] [place] [address] Hematocrit (Bld) [Volume fraction] 40.2 % Normal 34.0-46.0 [facility] Comment on above: Performed By: #### 2 [id number] #### [facility] [address] [place] [address] Hemoglobin (Bld) [Mass/Vol] 13.4 g/dL Normal 12.0-16.0 [facility] Comment on above: Performed By: #### 2 [id number] #### [facility] [address] [place] [address] Lymphocytes (Bld) [#/Vol] 1.9 E9/L Normal 1.0-4.0 [facility] Comment on above: Performed By: #### 2 [id number] #### [facility] [address] [place] [address] Lymphocytes/100 WBC (Bld) 15.0 % Normal 14.0-50.0 [facility] Comment on above: Performed By: #### 2 [id number] #### [facility] [address] [place] [address] MCH (RBC) [Entitic mass] 28.5 pg Normal 27.0-34.0 [facility] Comment on above: Performed By: #### 2 [id number] #### [facility] [address] [place] [address] MCHC (RBC) [Mass/Vol] 33.3 g/dL Normal 31.4-36.0 [facility] Comment on above: Performed By: #### 2 [id number] #### [facility] [address] [place] [address] MCV (RBC) [Entitic vol] 85.5 fL Normal 80.0-100.0 [facility] Comment on above: Performed By: #### 2 [id number] #### [facility] [address] [place] [address] Monocytes (Bld) [#/Vol] 0.6 E9/L Normal 0.2-1.0 [facility] Comment on above: Performed By: #### 2 [id number] #### [facility] [address] [place] [address] Neutrophils (Bld) [#/Vol] 10.1 E9/L High 2.0-7.5 [facility] Comment on above: Performed By: #### 2 903204 #### [facility] [address] [place] [address] Neutrophils/100 WBC (Bld) 78.8 % High 36.0-75.0 [facility] Comment on above: Performed By: #### 2 [id number] #### [facility] [address] [place] [address] Platelet 335.0 E9/L Normal 150.0-500.0 [facility] Comment on above: Performed By: #### 2 [id number] #### [facility] [address] [place] [address] Platelet mean volume (Bld) [Entitic vol] 8.0 fL Normal 6.4-10.8 [facility] Comment on above: Performed By: #### 2 [id number] #### [facility] [address] [place] [address] RBC (Bld) [#/Vol] 4.7 E12/L Normal 4.3-5.9 [facility] Comment on above: Performed By: #### 2 [id number] #### [facility] [address] [place] [address] WBC corrected for nucl RBC Auto (Bld) [#/Vol] 12.9 E9/L High 4.0-11.0 [facility] Comment on above: Performed By: #### 2 [id number] #### [facility] [address] [place] [address] CHEMISTRYOrdered By: SYSTEM SYSTEM on 07-29-2024 Albumin [Mass/Vol] 4.3 g/dL Normal 3.3 - 5.0 gm/dL R emisol Chem Albumin/Globulin [Mass ratio] 1.4 {ratio} Normal 1.1 - 2.2 Remisol Chem ALP [Catalytic activity/Vol] 77 [iU]/d Normal 21 - 98 Int._Unit/L Remisol Chem ALT No additional P-5'-P [Catalytic activity/Vol] 9 [iU]/d Normal 6 - 46 Int._Unit/L Remisol Chem Anion gap [Moles/Vol] 10 mmol/L Normal 6 - 16 mEq/L Remisol Chem AST [Catalytic activity/Vol] 12 [iU]/d Normal 5 - 43 Int._Unit/L Remisol Chem Bilirubin [Mass/Vol] 1.0 mg/dL Normal 0.0 - 1.1 mg/dL Remisol Chem Bilirubin.direct [Mass/Vol] 0.2 mg/dL Normal 0.0 - 0.4 mg/dL Remisol Chem Bilirubin.indirect [Mass or moles/Vol] 0.8 mg/dL Normal 0.1 - 0.9 mg/dL Remisol Chem Calcium [Mass/Vol] 9.6 mg/dL Normal 8.9 - 11. 1 mg/dL Remisol Chem Chloride [Moles/Vol] 105 mmol/L Normal 101 - 1 11 mmol/L Remisol Chem CO2 [Moles/Vol] 26 mmol/L Normal 21 - 31 mmol/L Remis ol Chem Creatinine [Mass/Vol] 0.9 mg/dL Normal 0.5 - 1.3 mg/dL Remisol Chem eGFR 93 mL/min/1.73 m2 Normal >=59mL/min /1.73 m2 Remisol Chem Globulin (S) [Mass/Vol] 3.0 g/dL Normal 1.4 - 4.0 gm/dL Remisol Chem Glucose [Mass/Vol] 114 mg/dL Normal 55 - 199 mg/dL Re misol Chem Lipase [Catalytic activity/Vol] 48 U/L Normal 13 - 58 unit/L Remisol Chem Potassium [Moles/Vol] 3.9 mmol/L Normal 3.5 - 5.3 mmol/L Remisol Chem Protein [Mass/Vol] 7.3 g/dL Normal 6.0 - 7.8 gm/dL R emisol Chem Sodium [Moles/Vol] 137 mmol/L Normal 135 - 145 mmol/L Remisol Chem Urea nitrogen [Mass/Vol] 15 mg/dL Normal 5 - 21 mg/dL Remisol Chem Urea nitrogen/Creatinine [Mass ratio] 17 mg/mg Normal 10 - 20 Remisol Chem ED Clinical Summaryon 2023 ED Clinical Summary ED Clinical Summary [place] [id number] ED Clinical Summary Person Information Name: SHERIE RIZVI He/[facility] Age: 24 Years : 2000 Sex: Female Language: Thai PCP: Jenn Urban MD Marital Status: Single MRN: Visit Id: Visit Reason: Nausea; Abdominal pain; ABD PAIN Speciality: Acuity: 3 Enc Type: Emergency Med Service: Emergency Arrival: 07/29/2024 05:51:54 Discharge: 07/29/2024 06:56:03 LOS: 000 01:05 Checkin: 07/29/2024 05:51:54 Checkout: 07/29/2024 06:56:03 Dispo Type: Home (Routine DC) EVENTS: Event Name Event Status Request Date/Time Start Date/Time Complete Date/Time Arrive Complete 07/29/2024 05:51:54 07/29/2024 05:51:54 07/29/2024 05:51:54 Document Home Meds Request 07/29/2024 05:51:54 Triage Complete 07/29/2024 05:51:54 07/29/2024 06:03:23 07/29/2024 06:03:23 Registration Complete 07/29/2024 05:54:23 07/29/2024 05:54:23 07/29/2024 05:54:23 Reg Complete Request 07/29/2024 05:54:23 Reg Bed Request Complete 07/29/2024 05:54:23 07/29/2024 05:54:23 07/29/2024 05:54:23 Bed Assign Complete 07/29/2024 06:03:32 07/29/2024 06:03:32 07/29/2024 06:03:32 Dr Exam Complete 07/29/2024 06:03:32 07/29/2024 06:05:42 07/29/2024 06:05:42 RN Exam Complete 07/29/2024 06:03:32 07/29/2024 06:09:16 07/29/2024 06:09:16 Registration Request 07/29/2024 06:05:42 Pending Labs Complete 07/29/2024 06:06:42 07/29/2024 06:31:05 Pending Labs Complete 07/29/2024 06:09:28 07/29/2024 06:46:19 Lab Complete 07/29/2024 06:09:28 07/29/2024 06:46:19 Meds Admin Complete 07/29/2024 06:09:28 07/29/2024 06:15:15 Urine Collect Complete 07/29/2024 06:09:28 07/29/2024 06:20:36 Pending Labs Collected 07/29/2024 06:19:45 07/29/2024 06:19:45 Lab Collected 07/29/2024 06:19:45 07/29/2024 06:19:45 Urine Collect Collected 07/29/2024 06:19:45 07/29/2024 06:19:45 Pending Labs Complete 07/29/2024 06:22:56 07/29/2024 06:22:56 07/29/2024 06:46:19 Lab Complete 07/29/2024 06:22:56 07/29/2024 06:22:56 07/29/2024 06:46:19 Pending Labs Complete 07/29/2024 06:29:12 07/29/2024 06:29:12 07/29/2024 06:29:13 Discharge Complete 07/29/2024 06:51:02 07/29/2024 06:56:07 07/29/2024 06:56:07 Transfer Complete 07/29/2024 06:56:07 07/29/2024 06:56:07 07/29/2024 06:56:07 ADDRESS: [address] [id number] PHYS DOC NOTES: MEDICAL INFORMATION: Prescriptions Given: New Medications [facility]/pharmacy #[id number], [address], [place] [id number], [phone] ondansetron (Zofran ODT 4 mg Tab-Dis) 1 Tablets By Mouth every 8 hours as needed Nausea/Vomiting. Refills: 0. pantoprazole (Pantoprazole [address] Tab) 1 Tablets By Mouth every day for 14 Days. Refills: 0. sucralfate (Carafate 1 gram Tab) 1 Tablets By Mouth 4 times a day for 10 Days. Refills: 0. Medications to Continue with No Changes Other Medications clonidine (cloNIDine 0.2 mg Tab) 2 Tablets By Mouth once a day (at bedtime). lidocaine topical (lidocaine Top 2% Gel 5 mL) 5 Milliliter Topical 3 times a day as needed Pain. Refills: 0. magnesium citrate (magnesium citrate 8.85% Oral Liq [...] Mouth every day. PATIENT EDUCATION INFORMATION: Instructions: Abdominal Pain, Adult Follow up: With: Address: When: Jenn Urban [address] [place], [place] [id number] Business (1) In 3 days DIAGNOSIS: Epigastric abdominal pain Normal [facility] ED Note-Physicianon 07-29-20 ED Note-Physician ED Note-Physician Basic Information Time Seen: Jose Wilkinson DO 07/29/2024 06:05 Chief Complaint pt arrives for c/o abd pain x couple of days but worened this morning. pt states pain in the RUQ and LUQ. History of Present Illness HPI: Patient is a 24-year-old female with past medical history of ADHD who presents the ED for abdominal discomfort. Patient states that she has had some intermittent upper abdominal discomfort for the past couple of days but since she woke up this morning it has been constant. She states that it is all way across the upper abdomen but is worse in the epigastric region. She has some mild nausea but no vomiting. She states that she is chronically constipated and there is been no change in bowel movements for her. She denies any fever or chills. She denies any urinary symptoms. She tried oral Tylenol this morning with minimal relief. ROS: Pertinent review of systems conducted and is negative except as noted above. Physical exam: General: nontoxic appearing and in no distress HEENT: Mucous membranes moist Neuro: awake and alert Neck: supple, trachea midline Card: Heart regular rate and rhythm no murmur Resp: Lungs clear to auscultation no wheeze or rhonchi Abd: Soft and nondistended. Epigastric tenderness that rebound or guarding. No CVA tenderness. Ext: No gross deformity or edema Physical Exam Vitals & Measurements T: 36.9 ???C(Oral) HR: 92(Peripheral) RR: 17 BP: 115/77 SpO2: 97% HT: 158 cm WT: 64.6 kg BMI: 25.88 Medical Decision Making MEDICAL DECISION MAKING Number and Complexity of Problems Differential Diagnosis: [] [facility] Data External documents reviewed: N/A My EKG interpretation: Noted in chart if applicable My CT interpretation: N/A My X-ray interpretation: Noted in chart if applicable My Ultrasound interpretation: N/A Decision rules/scores evaluated: N/A Discussed with: N/A Treatment and Disposition ED Course: Patient is well-appearing in no distress. She is afebrile here in the ED. She has very mild tenderness that is worse in the epigastrium. She is nonperitoneal. We will obtain blood work and urinalysis here in the ED. Will give her an oral Zofran as well as a GI cocktail for her symptoms. Lab work shows mild leukocytosis but is otherwise reassuring. Urine shows no signs of infection. On reassessment she states that her nausea has significantly improved and her discomfort has slightly improved. I discussed with her the results of her lab work. I discussed that I felt due to the location and nature of her pain I suspect a possible gastritis. She states that she has had an endoscopy before where she was told the findings were consistent with a chronic gastritis. She does not currently take any medications for this. I discussed the plan of discharge with a prescription for Protonix and Carafate. We will also give her prescription for Zofran as needed. We discussed the need for close follow-up with her primary care physician as well as return precautions. Patient states understanding and agreement with this plan was discharged in stable condition. Shared decision making: As above Code status: N/A Assessment/Plan Epigastric abdominal pain (R10.13: Epigastric pain) Orders: Al hydroxide/Mg hydroxide/simethicone, 30 mL, Susp-Oral, Oral, Once, Stop date 07/29/24 6:09:00 EST, STAT, Start date 07/29/24 6:09:00 EST lidocaine topical, 200 mg, 10 mL, Soln-Oral, Oral, Once, Stop date 07/29/24 6:09:00 EST, STAT, Start date 07/29/24 6:09:00 EST ondansetron, 4 mg = 1 tab(s), Tab-Dis, Oral, Once, Stop date 07/29/24 6:09:00 EST, STAT, Start date 07/29/24 6:09:00 EST, 07/29/24 6:09:00 EST ondansetron, 4 mg = 1 tab(s), Oral, q8hr, PRN Nausea/Vomiting, # 16 tab(s), Refills(s) 0, Pharmacy: [facility]/pharmacy #[id number], 158, cm, 07/29/24 6:03:00 EST, Height/Length Dosing, 64.6, kg, 07/29/24 6:03:00 EST, Weight Dosing pantoprazole, 20 mg = 1 tab(s), Oral, Daily, X 14 day(s), # 14 tab(s), Refills(s) 0, [id number] 158, cm, 07/29/24 6:03:00 EST, Height/Length Dosing, 64.6, kg, 07/29/24 6:03:00 EST, Weight Dosing sucralfate, 1 gm = 1 tab(s), Oral, QID, X 10 day(s), # 40 tab(s), Refills(s) 0, [id number], 158, cm, 07/29/24 6:03:00 EST, Height/Length Dosing, 64.6, kg, 07/29/24 6:03:00 EST, Weight Dosing .UA With Cult Reflex Basic Metabolic Panel CBC w/ Auto Diff eGFR Extra Blue Tube Hepatic Function Panel Lipase Level U Beta Hcg Qual UA with Cult Rflx Medications Administered Given Al hydroxide/Mg hydroxide/simethicone 200 mg-200 mg-20 mg/5 mL oral suspension, 30 mL, Oral lidocaine Viscous Top 2% Consuelo, 200 mg, Oral ondansetron 4 mg Dis Tab, 4 mg, Oral Disposition Plan Discharge Prescription List Prescriptions Carafate 1 gram Tab, 1 gm= 1 tab(s), Oral, QID Pantoprazole [address] Tab, 20 mg= 1 tab(s), Oral, Daily Zofran ODT 4 mg Tab-Dis, 4 mg= 1 tab(s), Oral, q8hr, PRN Follow-up With When Contact Information Jenn Urban In 3 days (more content not included)... Normal [facility] Comment on above: Result Comment: Elec tronically Signed By: Jose Wilkinson DO\.br\Date and Time Signed: 07/29/24 06:52 EST ED Patient Summaryon 024 ED Patient Summary ED Patient Summary [place] [id number] Patient Discharge Instructions Person Information Name: BELKYSSHERIE Age: 24 Years [facility]: [id number] Arrival Date: 07/29/2024 05:51:54 Discharge Diagnosis: Epigastric abdominal pain Primary Care Physician: Jenn Urban MD Provider Information Primary Provider: Jose Wilkinson DO Advanced Senior Investment Manager:Padmini The exam and treatment you received in the Emergency Department were for an urgent problem and are not intended as complete care. It is important that you follow up with a doctor, nurse practitioner, or physician???s legal administrative assistant for ongoing care. If your symptoms become worse or you do not improve as expected and you are unable to reach your usual health care provider, you should return to the Emergency Department. We are available 24 hours a day. SHERIE RIZVI has been given the following list of patient education materials, prescriptions and follow-up instructions: Follow-up Instructions: With: Address: When: Jenn Urban [address] [place], [place] [address]., [address] [place] [phone] Business (1) In 3 days In the event that this physician does not participate in your insurance network, please consult with your insurance company to find a nearby participating provider. Patient Education Materials: Abdominal Pain, Adult A MESSAGE TO ALL PATIENTS REGARDING OPIOIDS PRESCRIPTION OPIOIDS: WHAT YOU NEED TO KNOW Prescription opioids can be used to help relieve [id number] pain and are often prescribed following a [...] the risks of opioids abuse and overdose. ??? If you believe you may be struggling with addiction, tell your health career and guidance counselor and ask (more content not included)... Normal [facility] Extra Blueon 07-29-2024 Tube Collected Plasma Yes Invalid Interpretation Code [facility] Comment on above: Performed By: #### 1 [id number] #### [facility] Laboratory [address] [place] [address] HEMATOLOGYOrdered By: SYSTEM SYSTEM on 07-29-2024 Basophils/100 WBC (Bld) 0.4 % Normal 0.0 - 2.0 % Remisol Heme Basophils/Leukocytes Auto (Bld) [Pure # fraction] 0.1 E9/L Normal 0.0 - 0.2 E9/L Remisol Heme Eosinophils (Bld) [#/Vol] 0.1 E9/L Normal 0.0 - 0.5 E9/L [facility] Heme Eosinophils/100 WBC (Bld) 0.9 % Normal 0.0 - 8.0 % [facility] Heme Erythrocyte distribution width (RBC) [Ratio] 14.6 % High 10.9 - 14.2 % [facility] Heme Hematocrit (Bld) [Volume fraction] 40.2 % Normal 34.0 - 46.0 % Rem[facility] Heme Hemoglobin (Bld) [Mass/Vol] 13.4 g/dL Normal 12.0 - 16.0 gm/dL [facility] Heme Lymphocytes (Bld) [#/Vol] 1.9 E9/L Normal 1.0 - 4.0 E9/L [facility] Heme Lymphocytes/100 WBC (Bld) 15.0 % Normal 14.0 - 50.0 % Remisol Heme MCH (RBC) [Entitic mass] 28.5 pg Normal 27.0 - 34.0 pg Remisol Heme MCHC (RBC) [Mass/Vol] 33.3 g/dL Normal 31.4 - 36.0 gm/dL [facility] Heme MCV (RBC) [Entitic vol] 85.5 fL Normal 80.0 - 100.0 fL Rem[facility] Heme Monocytes (Bld) [#/Vol] 0.6 E9/L Normal 0.2 - 1.0 E9/L Rem[facility] Heme Monocytes/100 WBC (Bld) 4.9 % Normal 4.0 - 14.0 % Remisol Heme Neutrophils (Bld) [#/Vol] 10.1 E9/L High 2.0 - 7.5 E9/L Rem[facility] Heme Neutrophils/100 WBC (Bld) 78.8 % High 36.0 - 75.0 % [facility] Heme Platelet 335.0 E9/L Normal 150.0 - 500.0 E9/L [facility] Heme Platelet mean volume (Bld) [Entitic vol] 8.0 fL Normal 6.4 - 10.8 fL Remisol Heme RBC (Bld) [#/Vol] 4.7 E12/L Normal 4.3 - 5.9 E12/L Re misol Heme WBC corrected for nucl RBC Auto (Bld) [#/Vol] 12.9 E9/L High 4.0 - 11.0 E9/L Remisol Heme Hep Func Panelon 07-29-2024 Albumin [Mass/Vol] 4.3 g/dL Normal 3.3-5.0 [facility] Comment on above: Performed By: #### 2 [id number] #### [facility] Laboratory [address] [place] [address] Albumin/Globulin (S) [Mass conc ratio] 1.4 Normal 1.1-2.2 [facility] Comment on above: Performed By: #### 2 [id number] #### [facility] Laboratory [address] [place] [address] ALP [Catalytic activity/Vol] 77 Int._Unit/L Normal 21-98 [facility] Comment on above: Performed By: #### 2 [id number] #### [facility] Laboratory [address] [place] [address] ALT No additional P-5'-P [Catalytic activity/Vol] 9 Int._Unit/L Normal 6-46 [facility] Comment on above: Performed By: #### 2 [id number] #### [facility] Laboratory [address] [place] [address] AST [Catalytic activity/Vol] 12 Int._Unit/L Normal 5-43 [facility] Comment on above: Performed By: #### 2 [id number] #### [facility] Laboratory [address] [place] [address] Bilirubin [Mass/Vol] 1.0 mg/dL Normal 0.0-1.1 [facility] Comment on above: Performed By: #### 2 [id number] #### [facility] Laboratory [address] [place] [address] Bilirubin.direct [Mass/Vol] 0.2 mg/dL Normal 0.0-0.4 [facility] Comment on above: Performed By: #### 2 [id number] #### [facility] Laboratory [address] [place] [address] Bilirubin.indirect [Mass or moles/Vol] 0.8 mg/dL Normal 0.1-0.9 [facility] Comment on above: Performed By: #### 2 [id number] #### [facility] Laboratory [address] [place] [address] Globulin (S) [Mass/Vol] 3.0 g/dL Normal 1.4-4.0 [facility] Comment on above: Performed By: #### 2 [id number] #### [facility] Laboratory [address] [place] [address] Protein [Mass/Vol] 7.3 g/dL Normal 6.0-7.8 [facility] Comment on above: Performed By: #### 2 [id number] #### [facility] Laboratory [address] [place] [address] Lipase Levelon 07-29-2024 Lipase [Catalytic activity/Vol] 48 U/L Normal 13-58 [facility] Comment on above: Performed By: #### 2 [id number] #### [facility] Laboratory [address] [place] [address] SEROLOGYOrdered By: Haley Cruz on 07-29-2024 HCG.beta subunit (U) [Moles/Vol] Negative Normal [facility] Man Sero U BetaHcg Qualon 07-29-2024 HCG.beta subunit (U) [Moles/Vol] Negative Normal [facility] Comment on above: Performed By: #### 2 [id number] #### [facility] Laboratory [address] [place] [address] UA with Cult Rflxon 07-29-20 24 Bilirubin Ql (U) 1+ mg/dL Abnormal Negative [facility] Comment on above: Performed By: #### 4 [id number] #### [facility] Laboratory [address] [place] [address] Clarity (U) SL CLOUDY Invalid Interpretation Code [facility] Comment on above: Performed By: #### 4 [id number] #### [facility] Laboratory [address] [place] [address] Color (U) YELLOW Normal Yellow [facility] Comment on above: Performed By: #### 4 [id number] #### [facility] Laboratory [address] [place] [address] Crystals.amorphous Computer assisted Ql (U) Present Abnormal [facility] Comment on above: Performed By: #### 4 [id number] #### [facility] Laboratory [address] [place] [address] Epithelial cells.squamous Auto (Urine sed) [#/Area] 0-2 Normal [facility] Comment on above: Performed By: #### 4 [id number] #### [facility] Laboratory [address] [place] [address] Glucose Ql (U) Negative Normal Negative [facility] Comment on above: Performed By: #### 4 [id number] #### [facility] Laboratory [address] [place] [address] Hemoglobin Auto test strip (U) [Mass/Vol] Negative Normal Negative [facility] Comment on above: Performed By: #### 4 [id number] #### [facility] Laboratory [address] [place] [address] Ketones Ql (U) TRACE Abnormal Negative [facility] Comment on above: Performed By: #### 4 [id number] #### [facility] Laboratory [address] [place] [address] Leukocyte esterase Auto test strip Ql (U) Negative Normal Negative [facility] Comment on above: Performed By: #### 4 [id number] #### [facility] Laboratory [address] [place] [address] Nitrite Auto test strip Ql (U) Negative Normal Negative [facility] Comment on above: Performed By: #### 4 [id number] #### [facility] Laboratory [address] [place] [address] pH (U) 6.0 [pH] Invalid Interpretation Code 5.0-9.0 [facility] Comment on above: Performed By: #### 4 [id number] #### [facility] Laboratory [address] [place] [address] Protein Ql (U) TRACE Abnormal Negative [facility] Comment on above: Performed By: #### 4 [id number] #### [facility] Laboratory [address] [place] [address] RBC Ql (U) 0-3 Normal 0-3 [facility] Comment on above: Performed By: #### 4 [id number] #### [facility] Laboratory [address] [place] [id number] Specific gravity (U) [Rel density] >=1.030 Invalid Interpretation Code 1.005-1.030 [facility] Comment on above: Performed By: #### 4 [id number] #### [facility] Laboratory [address] [place] [address] Urobilinogen Qn (U) 1.0 Normal 0.0-1.0 [facility] Comment on above: Performed By: #### 4 [id number] #### [facility] Laboratory [address] [place] [address] WBC Auto (Urine sed) [#/Area] 0-5 Normal 0-5 [facility] Comment on above: Performed By: #### 4 [id number] #### [facility] Laboratory [address] [place] [address] Type of Urine collection method Clean Catch Normal [facility] Comment on above: Performed By: #### 4 [id number] #### [facility] Laboratory [address] [place] [address] URINALYSISOrdered By: Lionel Cruz on 07-29-2024 Bilirubin Ql (U) 1+ mg/dL Invalid Interpretation Code Negativemg/dL [facility] UA Auto SS Clarity (U) SL CLOUDY Invalid Interpretation Code [facility] UA Auto SS Color (U) Yellow (07/29/24 6:08 AM) Normal Yellow [facility] UA Auto SS Crystals.amorphous Computer assisted Ql (U) Present graded/HPF Invalid Interpretation Code [facility] UA Auto SS Epithelial cells.squamous Auto (Urine sed) [#/Area] 0-2 graded/HPF Normal [facility] Aut o SS Glucose Ql (U) Negative (07/29/24 6:08 AM) Normal Negative [facility] UA Auto SS Hemoglobin Auto test strip (U) [Mass/Vol] Negative (07/29/24 6:08 AM) Normal Negative [facility] UA Auto SS Ketones Ql (U) Trace *ABN* (07/29/24 6:08 AM) Invalid Interpretation Code Negative [facility] UA Auto SS Leukocyte esterase Auto test strip Ql (U) Negative (07/29/24 6:08 AM) Normal Negative [facility] UA Auto SS Nitrite Auto test strip Ql (U) Negative (07/29/24 6:08 AM) Normal Negative [facility] UA Auto SS pH (U) 6.0 *NA* (07/29/24 6:08 AM) Invalid Interpretation Code 5.0 - 9.0 [facility] UA Auto SS Protein Ql (U) Trace *ABN* (07/29/24 6:08 AM) Invalid Interpretation Code Negative [facility] UA Auto SS RBC Ql (U) 0-3 graded/HPF Normal 0-3graded/HPF [facility] UA Auto SS Specific gravity (U) [Rel density] >=1.030 *NA* (07/29/24 6:08 AM) Invalid Interpretation Code 1.005 - 1.030 [facility] UA Auto SS Urobilinogen Qn (U) 1.0 (07/29/24 6:08 AM) Normal 0.0 - 1.0 [facility] UA Auto SS WBC Auto (Urine sed) [#/Area] 0-5 graded/HPF Normal 0-5graded/HPF [facility] UA Auto SS URINALYSISOrdered By: Michael Gunter on 07-29-2024 UA Spec Desc Clean Catch (07/29/24 6:08 AM) Normal [facility] Auto SS eGFRon 07-29-2024 eGFR 93 mL/min/1.73 m2 Normal >=59 [facility] Comment on above: Performed By: #### 1 [id number] #### [facility] [address] [place] [address] Allison 07-11-2024 TAMEKA Telephone (GASTPR) SHERIE RIZVI ([id number]) 4 F Date Time Provider Department 07/11/24 [...] have family/friend present for procedure transport home:Patient/patient u.s. representative was told that if they do not [...] area. 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 Typing was confirmed by monoclonal antibody microscopic immunofluorescence. 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 Typing was confirmed by monoclonal antibody microscopic immunofluorescence. Performed at: [facility] [id number] PhD Yo Zamora Performed By: #### 1 [id number] #### [facility] Laboratory [address] [place] [address] Chlam/GC/Trich,NAAon 024 C. trachomatis rRNA JERMAINE+probe Ql (Unsp spec) Negative Invalid Interpretation Code Negative [facility] Comment on above: Performed By: #### 1 [id number] #### [facility] Laboratory [address] [place] [address] N. gonorrhoeae rRNA JERMAINE+probe Ql (Unsp spec) Negative Invalid Interpretation Code Negative [facility] Comment on above: Performed By: #### 1 [id number] #### [facility] Laboratory [address] [place] [address] T. vaginalis rRNA JERMAINE+probe Ql (Unsp spec) Negative Invalid Interpretation Code Negative [facility] Comment on above: Result Comment: Perf ormed at: =G [facility] [address] [facility] [place] [id number] MD Marck Barakat Performed By: #### 1 [id number] #### [facility] Laboratory [address] [place] [address] C Urineon 06-30-2024 Bacteria identified Cx Nom [...] Locations R1: This test was performed at: [facility], [address] [place] [address], [id number]- , , Normal [facility] Comment on above: Performed By: #### 2 [id number] #### [facility] Laboratory [address] [place] [address] ED Note-Physicianon 06-29-20 ED Note-Physician ED Note-Physician [...] Topical, TID Pain, 30 mL, Refill(s) 0, [facility]/pharmacy #[id number], 158, cm, 06/28/24 14:54:00 EDT, Height/Length Dosing, 65.1, kg, 06/28/24 14:54:00 EDT, Weight Dosing nitrofurantoin, 100 mg = 1 cap(s), Oral, BID, X 7 day(s), # 14 cap(s), Refills(s) 0, Pharmacy: [facility]/pharmacy #[id number], 158, cm, 06/28/24 14:54:00 EDT, Height/Length [...] Urban In 3 days 07/01/2024 EDT [address] [place], [place] [address] (1) Additional Instructions: Patient Education Urinary Tract [...] (06/28/24 15:08:00 (more content not included)... Normal [facility] Comment on above: Result Comment: Elec tronically Signed By: Toan Satno PA-C\.br\Date and Time Signed: 06/28/24 17:19 EDT\.br\Electronically Co-Signed By: Luís Greenfield DO\.br\Date and Time Co-Signed: 06/29/24 07:13 EDT ED Clinical Summaryon 2023 ED Clinical Summary ED Clinical Summary [place] [address] ED Clinical Summary Person Information Name: SHERIE RIZVI/[facility] Age: 24 Years : 2000 Sex: Female Language: Thai PCP: Jenn Urban MD Marital Status: Single Visit Id: Visit Reason: Urinary frequency; Vaginal [...] 06/28/2024 17:23:49 06/28/2024 17:23:49 06/28/2024 17:23:49 ADDRESS: [address] [phone] PHYS DOC NOTES: MEDICAL INFORMATION: Prescriptions Given: New Medications [id number], [address] [place], [place] [id number], [phone] lidocaine topical (lidocaine Top 2% Gel 5 [...] Infection, Adult Follow up: With: Address: When: Jennkiah Urban [address] [place] [address], [address] [place] [address] Business (1) In 3 days 07/01/2024 DIAGNOSIS: 1:UTI (urinary tract infection), bacterial; Bacterial infection, unspecified; Vulvovaginal rash Normal [facility] ED Patient Summaryon ED Patient Summary ED Patient Summary [address] [address] Patient Discharge Instructions Person Information Name: BELKYS, SHERIE M Age: 24 Years Arrival Date: 06/28/2024 14:46:44 Discharge Diagnosis: 1:UTI (urinary tract infection), bacterial; Bacterial infection, unspecified; Vulvovaginal rash Primary Care Physician: Jenn Urban MD Provider Information Primary Provider: Luís Greenfield DO Advanced Senior Investment Manager:Toan Santo PA-C The exam and treatment you received in the Emergency Department were for an urgent problem and are not intended as complete care. It is important that you follow up with a doctor, nurse practitioner, or physician???s legal administrative assistant for ongoing care. If your symptoms become worse or you do not improve as expected and you are unable to reach your usual health care provider, you should return to the Emergency Department. We are available 24 hours a day. SHERIE RIZVI has been given the following list of patient education materials, prescriptions and follow-up instructions: Follow-up Instructions: With: Address: When: Jenn Urban [address] [place] [address]., [address] [place] [phone] Business (1) In 3 days 07/01/2024 In the event that this physician does not participate in your insurance network, please consult with your insurance company to find a nearby participating provider. Patient Education Materials: Urinary Tract Infection, Adult A MESSAGE TO ALL PATIENTS REGARDING OPIOIDS PRESCRIPTION OPIOIDS: WHAT YOU NEED TO KNOW Prescription opioids can be used to help relieve lsrbwvok-sf-expqpu pain and are often prescribed following a [...] and overdose (more content not included)... Normal [facility] Reference Laboratory Testing Ordered By: Toan Santo on 06-28-2024 Viral Cult Spec Source Vaginal Invalid Interpretation Code [facility] [employer] Work Phone: SEROLOGYOrdered By: Jalyn sosa on 06-28-2024 HCG.beta subunit (U) [Moles/Vol] Negative Normal [facility] Man Sero U BetaHcg Qualon 06-28-2024 HCG.beta subunit (U) [Moles/Vol] Negative Normal [facility] Comment on above: Performed By: #### 2 [id number] #### [facility] Laboratory [address] [place] [address] UA with Cult Rflxon 06-28-20 24 Bacteria Auto Ql (U) Trace Normal Trace [facility] Comment on above: Performed By: #### 4 [id number] #### [facility] Laboratory [address] [place] [address] Bilirubin Ql (U) Negative Normal Negative [facility] Comment on above: Performed By: #### 4 [id number] #### [facility] Laboratory [address] [place] [address] Clarity (U) Turbid Abnormal Clear [facility] Comment on above: Performed By: #### 4 [id number] #### [facility] Laboratory [address] [place] [address] Color (U) Yellow Normal Yellow [facility] Comment on above: Result Comment: Micr oscopic readings are only performed on those samples that meet specific criteria set forth by [facility] Laboratory. Performed By: #### 4 [id number] #### [facility] Laboratory [address] [place] [address] Epithelial cells.squamous Auto (Urine sed) [#/Area] >10 Invalid Interpretation Code [facility] Comment on above: Performed By: #### 4 [id number] #### [facility] Laboratory [address] [place] [address] Glucose Ql (U) Negative Normal Negative [facility] Comment on above: Performed By: #### 4 [id number] #### [facility] Laboratory [address] [place] [address] Hemoglobin Auto test strip (U) [Mass/Vol] 1+ mg/dL Abnormal Negative [facility] Comment on above: Performed By: #### 4 [id number] #### [facility] Laboratory [address] [place] [address] Ketones Auto test strip Ql (U) Negative Normal Negative [facility] Comment on above: Performed By: #### 4 [id number] #### [facility] Laboratory [address] [place] [address] Leukocyte esterase Auto test strip Ql (U) 250 Shaylee/uL Abnormal Negative [facility] Comment on above: Performed By: #### 4 [id number] #### [facility] Laboratory [address] [place] [address] Mucus Auto Ql (U) Trace Normal Negative [facility] Comment on above: Performed By: #### 4 [id number] #### [facility] Laboratory [address] [place] [address] Nitrite Auto test strip Ql (U) Negative Normal Negative [facility] Comment on above: Performed By: #### 4 [id number] #### [facility] Laboratory [address] [place] [address] pH (U) 6.0 [pH] Invalid Interpretation Code 5.0-9.0 [facility] Comment on above: Performed By: #### 4 [id number] #### [facility] Laboratory [address] [place] [address] Protein Ql (U) Trace Abnormal Negative [facility] Comment on above: Performed By: #### 4 [id number] #### [facility] Laboratory [address] [place] [address] RBC Ql (U) 4-20 Abnormal 0-3 [facility] Comment on above: Performed By: #### 4 [id number] #### [facility] Laboratory [address] [place] [address] Specific gravity (U) [Rel density] 1.026 Invalid Interpretation Code 1.005-1.030 [facility] Comment on above: Performed By: #### 4 [id number] #### [facility] Laboratory [address] [place] [address] Urobilinogen (U) [Mass/Vol] Negative Normal Negative [facility] Comment on above: Performed By: #### 4 [id number] #### [facility] Laboratory [address] [place] [id number] WBC Auto (Urine sed) [#/Area] 16-25 Abnormal 0-5 [facility] Comment on above: Performed By: #### 4 [id number] #### [facility] Laboratory [address] [place] [address] Type of Urine collection method Clean Catch Normal [facility] Comment on above: Performed By: #### 4 [id number] #### [facility] Laboratory [address] [place] [address] URINALYSISOrdered By: SYSTEM SYSTEM on 06-28-2024 Bacteria Auto Ql (U) Trace /HPF Normal Trace/HPF [facility] UA Auto SS Bilirubin Ql (U) Negative Normal Negativemg/dL [facility] UA Auto SS Clarity (U) Turbid *ABN* (06/28/24 3:08 PM) Invalid Interpretation Code Clear [facility] UA Auto SS Color (U) Yellow 1 (06/28/24 3:08 PM) Normal Yellow [facility] UA Auto SS Comment on above: Interpretive Data: M icroscopic readings are only performed on those samples that meet specific criteria set forth by [facility] Laboratory. Epithelial cells.squamous Auto (Urine sed) [#/Area] [...] (U) Trace graded/LPF Normal Negati vegraded/ LPF [facility] UA Auto SS Nitrite Auto test strip Ql (U) Negative Normal Negativemg/dL [facility] UA Auto SS pH (U) 6.0 *NA* (06/28/24 3:08 PM) Invalid Interpretation Code 5.0 - 9.0 [facility] UA Auto SS Protein Ql (U) Trace mg/dL Invalid Interpretation Code Negativemg/dL [facility] UA Auto SS RBC Ql (U) 4-20 graded/HPF Invalid Interpretation Code 0-3graded/HPF [facility] UA Auto SS Specific gravity (U) [Rel density] 1.026 *NA* (06/28/24 3:08 PM) Invalid Interpretation Code 1.005 - 1.030 [facility] UA Auto SS Urobilinogen (U) [Mass/Vol] Negative Normal Negativemg/dL [facility] UA Auto SS WBC Auto (Urine sed) [#/Area] 16-25 graded/HPF Invalid Interpretation Code 0-5graded/HPF [facility] UA Auto SS URINALYSISOrdered By: Toan Santo on 06-28-2024 UA Spec Desc Clean Catch (06/28/24 3:08 PM) Normal [facility] UA Auto SS Work Phone: Viral Cult, Generalon 2023 Viral Cult Spec Source Vaginal Invalid Interpretation Code [facility] Comment on above: Performed By: #### 1 [id number] #### [facility] Laboratory [address] [place] [address] ED Note-Physicianon 06-17-20 ED Note-Physician ED Note-Physician [...] fever, chills, nausea or vomiting. She tried nnyb-tvq-nzbrnfq Gas-X and Tums without much relief. No [...] 300 mL, Refill(s) 0, may repeat in, [facility]/pharmacy #[id number], 157.4, cm, 06/11/24 10:45:00 EDT, Height/Length Dosing, 65.8, kg, 06/11/24 10:45:00 EDT, Weight Dosing nitrofurantoin, 100 mg = 1 cap(s), Oral, BID, X 7 day(s), # 14 cap(s), Refills(s) 0, Pharmacy: [facility]/pharmacy #[id number], 157.4, cm, 06/11/24 10:45:00 EDT, Height/Length Dosing, 65.8, kg, 06/11/24 10:45:00 EDT, Weight Dosing polyethylene glycol 3350, 17 gram, Oral, Daily, dissolve in water before taking, # 255 gram, Refills(s) 0, Pharmacy: [facility]/pharmacy #[id number], 157.4, cm, 06/11/24 10:45:00 EDT, Height/Length [...] Wilmar In 3 days 06/14/2024 EDT [address] Business (1) Additional Instructions: Patient Education Urinary [...] made to ensure accuracy, however, inadvertently computerized machine driller mistakes may be present. Appropriate healthcare PPE [...] Social His (more content not included)... Normal [facility] Comment on above: Result Comment: Elec tronically [...] Locations R1: This test was performed at: [facility], [address] [place] [address], [facility] , , [facility] Comment on above: Performed By: #### 2 [id number] #### [facility] Laboratory [address] [place] [address] ED Clinical Summaryon 2023 ED Clinical Summary ED Clinical Summary [address] [address] ED Clinical Summary Person Information Name: PIPER RIZVIBrandi Hernandez He/[facility] Age: 23 Years : 2000 Sex: Female Language: Thai PCP: Jenn Urban MD Marital Status: Single [...] 06/11/2024 12:23:12 06/11/2024 12:23:12 06/11/2024 12:23:12 ADDRESS: [address] [id number] PHYS DOC NOTES: MEDICAL INFORMATION: Prescriptions Given: New Medications [facility]/pharmacy #[id number], [address], [place] [id number], [phone] magnesium citrate (magnesium citrate 8.85% Oral Liq [...] up: With: Address: When: Jenn Urban [address] [place], [place] [id number] Business (1) In 3 days 06/14/2024 DIAGNOSIS: Constipation; UTI (urinary tract infection) Normal [facility] ED Patient Summaryon 024 ED Patient Summary ED Patient Summary [address] [address] Patient Discharge Instructions Person Information Name: SHERIE RIZVI Age: 23 Years Arrival Date: 06/11/2024 10:35:30 Discharge Diagnosis: Constipation; UTI (urinary tract infection) Primary Care Physician: Jenn Urban MD Provider Information Primary Provider: Luís Greenfield DO Advanced Senior Investment Manager:Toan Santo PA-C The exam and treatment you received in the Emergency Department were for an urgent problem and are not intended as complete care. It is important that you follow up with a doctor, nurse practitioner, or physician?s legal administrative assistant for ongoing care. If your symptoms become worse or you do not improve as expected and you are unable to reach your usual health care provider, you should return to the Emergency Department. We are available 24 hours a day. SHERIE RIZVI has been given the following list of patient education materials, prescriptions and follow-up instructions: Follow-up Instructions: With: Address: When: Jenn Urban [address] [place] [address]., [address] [place] [address] Business (1) In 3 days 06/14/2024 In the event that this physician does not participate in your insurance network, please consult with your insurance company to find a nearby participating provider. Patient Education Materials: Urinary Tract Infection, Adult; Constipation, Adult A MESSAGE TO ALL PATIENTS REGARDING OPIOIDS PRESCRIPTION OPIOIDS: WHAT YOU NEED TO KNOW Prescription opioids can be used to help relieve agymkvje-kf-zcdhlp pain and are often prescribed following a [...] be struggling with addiction, tell your health career and guidance counselor and ask (more content not included)... Normal [facility] SEROLOGYOrdered By: Lili Guerrero on 06-11-2024 HCG.beta subunit (U) [Moles/Vol] Negative Normal [facility] Man Sero U BetaHcg Qualon 06-11-2024 HCG.beta subunit (U) [Moles/Vol] Negative Normal [facility] Comment on above: Performed By: #### 2 [id number] #### [facility] Laboratory [address] [place] [address] UA with Cult Rflxon 06-11-20 24 Bacteria Auto Ql (U) Trace Normal Trace Fish [facility] Comment on above: Performed By: #### 4 [id number] #### [facility] Laboratory [address] [place] [address] Bilirubin Ql (U) Negative Normal Negative [facility] Comment on above: Performed By: #### 4 [id number] #### [facility] Laboratory [address] [place] [address] Clarity (U) Clear Normal Clear [facility] Comment on above: Performed By: #### 4 [id number] #### [facility] Laboratory [address] [place] [address] Color (U) Light-Yellow Normal Yellow [facility] Comment on above: Result Comment: Micr oscopic readings are only performed on those samples that meet specific criteria set forth by [facility] Laboratory. Performed By: #### 4 [id number] #### [facility] Laboratory [address] [place] [address] Epithelial cells.squamous Auto (Urine sed) [#/Area] 5-8 Invalid Interpretation Code [facility] Comment on above: Performed By: #### 4 [id number] #### [facility] Laboratory [address] [place] [address] Glucose Ql (U) Negative Normal Negative [facility] Comment on above: Performed By: #### 4 [id number] #### [facility] Laboratory [address] [place] [address] Hemoglobin Auto test strip (U) [Mass/Vol] Negative Normal Negative [facility] Comment on above: Performed By: #### 4 [id number] #### [facility] [address] [place] [address] Ketones Auto test strip Ql (U) Negative Normal Negative [facility] Comment on above: Performed By: #### 4 [id number] #### [facility] [address] [place] [address] Leukocyte esterase Auto test strip Ql (U) 25 Shaylee/uL Normal Negative [facility] Comment on above: Performed By: #### 4 [id number] #### [facility] Laboratory [address] [place] [address] Mucus Auto Ql (U) Negative Normal Negative [facility] Comment on above: Performed By: #### 4 [id number] #### [facility] [address] [place] [address] Nitrite Auto test strip Ql (U) Negative Normal Negative [facility] Comment on above: Performed By: #### 4 [id number] #### [facility] [address] [place] [address] pH (U) 6.5 [pH] Invalid Interpretation Code 5.0-9.0 [facility] Comment on above: Performed By: #### 4 [id number] #### [facility] Laboratory [address] [place] [address] Protein Ql (U) Negative Normal Negative [facility] Comment on above: Performed By: #### 4 [id number] #### [facility] [address] [place] [address] RBC Ql (U) 0-3 Normal 0-3 [facility] Comment on above: Performed By: #### 4 [id number] #### [facility] Laboratory [address] [place] [address] Specific gravity (U) [Rel density] 1.014 Invalid Interpretation Code 1.005-1.030 [facility] Comment on above: Performed By: #### 4 [id number] #### [facility] Laboratory [address] [place] [address] Urobilinogen (U) [Mass/Vol] Negative Normal Negative [facility] Comment on above: Performed By: #### 4 [id number] #### [facility] [address] [place] [address] WBC Auto (Urine sed) [#/Area] 6-15 Abnormal 0-5 [facility] Comment on above: Performed By: #### 4 [id number] #### [facility] Laboratory [address] [place] [address] Type of Urine collection method Clean Catch Normal [facility] Comment on above: Performed By: #### 4 [id number] #### [facility] Laboratory [address] [place] [address] URINALYSISOrdered By: SYSTEM SYSTEM on 06-11-2024 Bacteria Auto Ql (U) Trace /HPF Normal Trace/HPF [facility]A Auto SS Bilirubin Ql (U) Negative Normal Negativemg/dL [facility] UA Auto SS Clarity (U) Clear (06/11/24 10:51 AM) Normal Clear [facility] UA Auto SS Color (U) Light-Yellow 1 (06/11/24 10:51 AM) Normal Yellow [facility] UA Auto SS Comment on above: Interpretive Data: M icroscopic readings are only performed on those samples that meet specific criteria set forth by [facility] Laboratory. Epithelial cells.squamous Auto (Urine sed) [#/Area] 5-8 graded/HPF Invalid Interpretation Code [facility] UA Auto SS Glucose Ql (U) Negative Normal Negativemg/dL [facility] UA Auto SS Hemoglobin Auto test strip (U) [Mass/Vol] Negative Normal Negativemg/dL [facility]A Aut o SS Ketones Auto test [...] AM) Invalid Interpretation Code 5.0 - 9.0 [facility] UA Auto SS Protein Ql (U) Negative Normal Negativemg/dL [facility] UA Auto SS RBC Ql (U) 0-3 graded/HPF Normal 0-3graded/HPF [facility]A Auto SS Specific gravity (U) [Rel density] 1.014 *NA* (06/11/24 10:51 AM) Invalid Interpretation Code 1.005 - 1.030 [facility] UA Auto SS Urobilinogen (U) [Mass/Vol] Negative Normal Negativemg/dL [facility] UA Auto SS WBC Auto (Urine sed) [#/Area] 6-15 graded/HPF Invalid Interpretation Code 0-5graded/HPF [facility] UA Auto SS URINALYSISOrdered By: Toan Santo on 06-11-2024 UA Spec Desc Clean Catch (06/11/24 10:51 AM) Normal [facility] UA Auto SS Work Phone: XR Abdomen [...] mGy = na DAP = na Normal [facility] ED Clinical Summaryon 2023 ED Clinical Summary ED Clinical Summary [address] [address] ED Clinical Summary Person Information Name: BELKYS, [facility]IE [facility] Age[facility] 23 Years : 2000 Sex: Female Language: Thai PCP: Jenn Urban MD Marital Status: Single MRN: Visit Id: Visit Reason: Jaw pain; Ear [...] 05/29/2024 03:05:04 05/29/2024 03:05:04 05/29/2024 03:05:04 ADDRESS: [address] [id number] PHYS DOC NOTES: MEDICAL INFORMATION: Prescriptions Given: [...] Otitis Externa Follow up: With: Address: When: Jenn Gibson [address] [place] [address], [address] [place] [address] Business (1) In 3 days DIAGNOSIS: Otitis externa of both ears Normal [facility] ED Note-Physicianon 05-29-20 ED Note-Physician ED Note-Physician [...] and Complexity of Problems Differential Diagnosis: [] [facility] Data External documents reviewed: N/A My [...] way into the ear canal. She continue knrk-qya-whmypdm pain medications and follow-up with her primary [...] Information Jenn Urban In 3 days [address] [place] [address] Business (1) Additional Instructions: Patient Education Otitis [...] Diagnostic Results No qualifying data available. Normal [facility] Comment on above: Result Comment: Elec tronically Signed By: Jose Wilkinson DO\.br\Date and Time Signed: 05/29/24 02:44 EDT ED Patient Summaryon 024 ED Patient Summary ED Patient Summary [place] [id number] Patient Discharge Instructions Person Information Name: SHERIE RIZVI Age: 23 Years Arrival Date: 05/29/2024 01:47:05 Discharge Diagnosis: Otitis externa of both ears Primary Care Physician: Jenn Urban MD Provider Information Primary Provider: Jose Wilkinson DO Advanced Senior Investment Manager:None The exam and treatment you received in the Emergency Department were for an urgent problem and are not intended as complete care. It is important that you follow up with a doctor, nurse practitioner, or physician?s legal administrative assistant for ongoing care. If your symptoms become worse or you do not improve as expected and you are unable to reach your usual health care provider, you should return to the Emergency Department. We are available 24 hours a day. SHERIE RIZVI has been given the following list of patient education materials, prescriptions and follow-up instructions: Follow-up Instructions: With: Address: When: Jenn Urban [address] [place] [address]., [address] [place] [address] Business (1) In 3 days In the event that this physician does not participate in your insurance network, please consult with your insurance company to find a nearby participating provider. Patient Education Materials: Otitis Externa A MESSAGE TO ALL PATIENTS REGARDING OPIOIDS PRESCRIPTION OPIOIDS: WHAT YOU NEED TO KNOW Prescription opioids can be used to help relieve jczjwqvo-wa-pxyshb pain and are often prescribed following a [...] be struggling with addiction, tell your health career and guidance counselor and ask for guidance or call [facility] National Helpline at 1-770-478-HELP. v Fátima (more content not included)... Normal [facility] Ambulatory Visit Summaryon 0 05-27-2024 Ambulatory Visit Summary Ambulatory Visit Summary SHERIE RIZVI :2000 Visit Date:05/27/2024 Ambulatory Visit Instructions Your [...] both ears Duration: 5 Days Pickup at [facility]/pharmacy #6173 New ciprofloxacin-dexameth asone otic (Ciprodex 0.3%-0.1% Susp-Otic) 4 Drops Otic 2 times a day Otitis media of left ear Otitis externa of both ears Duration: 7 Days BOTH ears shake well before using wash hands before applying Pickup at [facility]/pharmacy #6173 Unchanged clonidine (cloNIDine 0.2 mg Tab) 2 Tablets By Mouth Once a day (at bedtime) Unchanged drospirenone-ethinyl estradiol (Vestura 3 mg-0.02 mg oral tablet) Unchanged methylphenidate (methylphenidate 54 mg/ 24 hr oral tablet, extended release) 1 Tablets By Mouth Once a day (in the morning) Unchanged sertraline (sertraline 50 mg Tab) 1 Tablets By Mouth Every day Pharmacy Information [facility]/pharmacy #6173: [address], [place] [id number] [phone] Allergies No Known Allergies Problems Ongoing - [...] for choosing us for your care. Normal [facility] Office/Clini c Noteon 05-27-2024 Family [...] with voice recognition software. Occasional wrong-word or ?lojnj-f-cqtg? substitutions may have occurred due to the inherent limitations of voice recognition software. 23-year-old female presents with complaint of possible bilateral ear infection. Patient states she already had some ear discomfort but was swimming in [facility] over the weekend and noticed increased pain. [...] day(s), # 10 tab(s), Refills(s) 0, Pharmacy: [facility]/pharmacy #6173, 158, cm, 05/27/24 13:27:00 EDT, Height/Length Dosing, 64.8, kg, 05/27/24 13:27:00 EDT, Weight Dosing ciprofloxacin-dexameth asone otic, 4 drop(s), Otic, BID for 7 day(s), 7.5 mL, Refill(s) 0, BOTH ears shake well before using wash hands before applying, [facility]/pharmacy #6173, 158, cm, 05/27/24 13:27:00 EDT, Height/Length Dosing, 64.8, kg, 05/27/24 13:27:00 EDT, Weight Dosing 2. Otitis externa of both ears, (H60.93: Unspecified otitis externa, bilateral)Otitis externa of both ears Ciprodex otic drops 4 drops in each ear twice a day for 7 days. Ordered: amoxicillin, 875 mg = 1 tab(s), Oral, q12hr, X 5 day(s), # 10 tab(s), Refills(s) 0, [facility] 158, cm, 05/27/24 13:27:00 EDT, Height/Length Dosing, 64.8, kg, 05/27/24 13:27:00 EDT, Weight Dosing ciprofloxacin-dexameth asone otic, 4 drop(s), Otic, BID for 7 day(s), 7.5 mL, Refill(s) 0, BOTH ears shake well before using wash hands before applying, [facility]/pharmacy #6173, 158, cm, 05/27/24 13:27:00 EDT, Height/Length [...] can offer counselling, (more content not included)... Normal [facility] Comment on above: Result Comment: Elec tronically Signed By: Severino MARQUES, Lizet\.br\Date and Time Signed: 05/27/24 13:57 EDT [facility] Patient Letter [facility] [address] [place] [id number] May 27, 2024 SHERIE RIZVI [address] [place] [address] : 2000 Please excuse SHERIE RIZVI from work . Date and/or Time of Absence: From: 05/27/24 To: 05/27/24 May return to work on: 05/28/24 Restrictions: None Comments: Please excuse due to an acute illness. Provider Signature: SHELLI Chatterjee Nurse Practitioner [facility] Care [address] [place] [address] [facility] NURSING PROGon 04-01-2024 NURSING PROG HNO ID: [id number] Author: FABIANA GUEVARA RN Service: ? Author Type: Registered Nurse Type: Nursing Progress Note Filed: 04/01/2024 10:37 Note Text: GI Pre-Procedure Spoke with patient: Left message- Attempted to reach the patient at the contact number that they provided [phone] (home) . Unable to speak with patient so without identifying the patient the following information was left on their voice mail: Date of procedure, location and report time Prep instructions A message was left informing the patient/patient u.s. representative they must have a responsible adult accompany [...] Number to call with questions or concerns [phone] Number to call to cancel their procedure [phone] Fabiana Guevara RN [facility] Allison 02-13-2024 [facility] Telephone (GASTBD) SHERIE RIZVI ([id number]) 4 F Date Time Provider Department 02/13/24 ABNER ALMAZAN During your visit today, we recorded the [...] calling: self Call patient at: on cell [phone] (home) [phone] (cell) Was an appointment scheduled: No Closing statement: Symptom Call: Thank you for calling [facility], your call is very important. A [...] Allergies) Date Reviewed: 10/23/2023 Reviewed by: Kim Bourne, UMANG - Fully Assessed Reason for Visit: Orders [...] Status:Closed by INES WATTS on 02/16/24 Normal [facility] Consent for Treatmenton 12-03 Consent for Treatment [id number] 0TIFF Normal [facility] RAD - MISCon 12-19-2023 RAD - MISC [id number] 0TIFF Normal [facility] RAD - MRI Screening Formon 0 12-19-2023 RAD - MRI Screening Form [id number]#[id number] 0TIFF Normal [facility] Insurance Correspondenceon 0 12-11-2023 Insurance Correspondence [id number] 0TIFF Normal [facility] General Surgery Office/Clini c Noteon 12-04-2023 General Surgery Office/Clinic Note Chief Complaint PLAYER PIANO TECHNICIAN Breast pain HPI Staff Sherie is a [...] with voice recognition artificial intelligence software, specifically [employer], [employer] and or [employer]. Substitutions may have occurred voice recognition and artificial intelligence software. Documentation services were performed after patient or guardian consented to allow [employer] to record this visit. GENARO office support specialist and provider reviewed before signing. GENARO: [...] 08/21/2018 Rice (more content not included)... Normal [facility] Comment on above: Result Comment: Elec tronically Signed By: Luís Perla MD\.br\Date and Time Signed: 12/04/23 08:32 EDT\.br\Electronically Co-Signed By: Freda Don\.br\Date and Time Co-Signed: 12/01/23 09:58 EDT Ambulatory Visit Summaryon 0 12-01-2023 Ambulatory Visit Summary SHERIE RIZVI :2000 Visit Date:12/01/2023 Ambulatory Visit Instructions Your Diagnosis Family history of breast cancer in female Dense breasts Your Care Team Attending Physician - Luís Perla MD Primary Care Physician - Wilmar PIERCE, Jenn [...] history of breast cancer in female Normal [facility] Physician Referralon 024 Physician Referral [id number] 30 [id number] 0TIFF Normal [facility] CNCOon 10-27-2023 CNCO Letter Text Normal [facility] ANES POSTPROC EVALon 024 ANES POSTPROC EVAL HNO ID: [id number] Author: MARY JANE STEVEN MD Service: ? [...] October 23, 2023 TIME: 3:25 PM CSN: [id number] Normal [facility] ANES PRE-OPon 10-23-2023 ANES PRE-OP HNO ID: [id number] Author: MARY JANE STEVEN MD Service: ? Author Type: Anesthesiologist Type: Anesthesia Preprocedure Evaluation Filed: 10/23/2023 12:29 Note Text: ANESTHESIOLOGY DAY OF SURGERY NOTE : 2000 Procedure Information Anesthesia Start Date/Time: 10/23/23 1227 Scheduled providers: Gayle Arambula MD; Mago Urban APRN.DAG SPRAYER; Mary Jane Steven MD Procedures: COLONOSCOPY DIAGNOSTIC [...] and consent discussed: yes. Patient / Responsible Constitution Party agrees to proceed: yes Patient / [...] October 23, 2023 TIME: 12:28 PM CSN: [id number] Normal [facility] Colonoscopyon 10-23-2023 Colonoscopy Q3 Patient Name: Sherie Breauxn Procedure Date: 10/23/2023 12:16 PM Date of : 2000 Admit Type: Outpatient Age: 23 Gender: Female Note Status: Finalized Attending MD: Gayle Arambula MD, [id number] Procedure: Colonoscopy Indications: Generalized abdominal pain Providers: [...] screening purposes. Procedure Code(s): --- Professional --- 88794 Diagnosis Code(s): --- Professional --- R10.84 CPT copyright 2020 [employer]. All rights reserved. Attending Participation: I personally performed the entire procedure. Scope In: 12:46:07 PM Scope Out: 12:48:28 PM MD Gayle Sher MD 10/23/2023 12:54:37 PM This report has been signed electronically by Gayle Arambula MD Number of Addenda: 0 Note Initiated On: 10/23/2023 12:16 PM Normal [facility] EGD Study observation Narrat iveon 10-23-2023 [facility] Flexible sigmoidoscopy study on 10-23-2023 [facility] NURSING PROGon 10-23-2023 NURSING PROG HNO ID: [id number] Author: GUNJAN REID RN Service: Nursing Author [...] Electronically Signed By: Gunjan Reid RN Normal [facility] NURSING PROG HNO ID: [id number] Author: ELIZA ACOSTA RN Service: ? Author [...] Eliza Acosta RN In Department: GASTROENTEROLOGY Normal [facility] SURGICAL PATHOLOGYon 024 CASE REPORT Normal [facility] Comment on above: Order Comment: Speci men Type: TISSUE SPECIMENOrdering Facility: [facility] Address: [address] [place] [address] Result Comment: Surg ical Pathology Report Case: [id number] Authorizing Provider: Gayle Arambula MD Collected: 10/23/2023 12:37 PM Ordering Location: Gastroenterology Received: 10/23/2023 04:29 PM Pathologist: Carlos Schuster MD Specimens: A) - DUODENUM BIOPSY, Duodenum biopsy r/o celiac disease B) - STOMACH BIOPSY, stomach biopsy r/o H. Pylori C) - ESOPHAGUS LOWER BIOPSY, Lower esophagus biopsy r/o EOE D) - ESOPHAGUS MID BIOPSY, Mid esophagus biopsy r/o EOE Performed By: #### S ####[facility] LABCLIA [id number] [address] DIAGNOSIS COMMENT Normal [facility] Comment on above: Order Comment: Mariia kaplan Type: TISSUE SPECIMENOrdering Facility: [facility] Address: [address] [place] [address] Result Comment: A. T he finding of [...] been determined by the performing laboratory within [facility]???s Syed Pena [facility] Pathology and Laboratory Medicine [place] ([facility], [facility], [facility], [facility], [facility], [facility], or [facility]) in a manner consistent with CLIA requirements. One or more of these tests have not been cleared or approved by the FDA. [facility] is regulated under CLIA as qualified to perform high-complexity testing. These tests are used for clinical purposes. They should not be regarded as investigational or for research. Positive and negative controls stain appropriately. Performed By: #### S ####[facility] LABCLIA [id number] [address] FINAL DIAGNOSIS Normal [facility] Comment on above: Order Comment: Mariia kaplan Type: TISSUE SPECIMENOrdering Facility: [facility] Address: [address] [place] [address] Result Comment: A. D uodenum, biopsy: - Duodenal mucosa with patchy intraepithelial lymphocytosis. - No evidence of villous blunting. - See comment. B. Stomach, biopsy: - Chronic active antral gastritis. - Immunohistochemical stain for Helicobacter pylori is negative. C, D. Esophagus, lower and mid, biopsy: - Squamous epithelium with no significant diagnostic alteration. - No evidence of intraepithelial eosinophils. Performed By: #### S ####[facility] LABCLIA [id number] [place] [address] [place] [facility] FINAL PERFORMING LAB Normal [facility] Comment on above: Order Comment: Speci men Type: TISSUE SPECIMENOrdering Facility: [facility] Address: [address] [place] [address] Result Comment: Diag nostic interpretation performed at [facility], [address] [place] [address] CLIA# [id number] Special Crimes Investigator: Patrick Ron M.D. Performed By: #### S ####[facility] LABCLIA [id number] [address] STATES OF [facility] GROSS DESCRIPTION Normal [facility] Comment on above: Order Comment: Speci men Type: TISSUE SPECIMENOrdering Facility: [facility] Address: [address] [place] [address] Result Comment: A. D UODENUM BIOPSY Received [...] in one cassette. Gross examination performed at [facility], [address] [place] [id number] KK October 23, 2023 8:01 PM Performed By: #### S ####[facility] LABCLIA [id number] JODYRichard [place] [id number] [facility] CNPFrances 10-16-2023 CNPN Telephone (GASTPR) SHERIE RIZVI ([id number]) 4 F Date Time Provider Department 10/16/23 JUAN LUIS ONEIL [facility] During your visit today, we recorded the following information about you: Juan Luis Oneil RN 10/16/2023 12:10 PM Signed Attempted to reach the patient at the contact number that they provided [phone] (home) . Unable to speak with patient so without identifying the patient the following information was left on their voice mail: Date of procedure, location and report time Prep instructions A message was left informing the patient/patient u.s. representative they must have a responsible adult accompany [...] Number to call with questions or concerns [phone] Number to call to cancel their procedure [phone] Juan Luis Oneil RN Allergies As of [...] by JUAN LUIS ONEIL on 10/16/23 Normal [facility] TSH SerPl-aCncon 09-20-2023 TSH Qn 1.880 m[IU]/L Normal 0.270-4.200 [facility] Comment on above: Order Comment: Speci men Type: BLOOD SPECIMENOrdering Facility: [facility] Address: [address] [place], [place] [address] Result Comment: If t he patient is , TSH reference range varies by gestational period: First Trimester (weeks 9-12): 0.180-2.990 mIU/L Second Trimester: 0.110-3.980 mIU/L Third Trimester: 0.480-4.710 mIU/L Sivakumar Anrett et al. A Practical Approach for the Verifications and Determination of Site- and Trimester-Specific Reference Intervals for Thyroid Function tests in . Thyroid, 2019:29:3:412-420. Negrito Sosa et al. 2017 Guidelines of the [place] Thyroid Association for the Diagnosis and Management of Thyroid Disease during and the . Thyroid, 2017:27:3:315-389. Performed By: #### 3 016-3 ####[facility] LABCLIA [id number] JODYRichard [facility] [id number] [place], [place] [id number] [place] CNOVon 08-22-2023 CNOV Office Visit (GENBMI ) SHERIE RIZVI ([id number]) 4 F Date Time Provider Department 08/22/23 4:00 PM LEVI JOHNSONTimoteo During your visit today, we recorded the [...] 2 Independent interpretation of test [facility] Medical Decision Making Level: 4 - Moderate Allergies As of Date: 08/22/2023 Noted Allergy Reaction LOPERAMIDE 08/11/2023 2 - Rash Date Reviewed: 08/22/2023 Reviewed by: Olivia Shearer MA - Fully Assessed Reason for Visit: New Patient [172] Primary Visit Diagnosis:Generalized abdominal pain [R10.84] Order(s):CONSULT TO GASTROENTEROLOGY [9010] Order #: [id number]: 1 FUTURE Prescriptions as of 08/23/2023 - Drospirenone-Ethinyl Estradiol (YOLIS, 28,) 3-0.02 mg per tablet Take 1 tablet by mouth once daily. - LINZESS 145 mcg capsule - l (more content not included)... Normal [facility] C. trachomatis+N. gonorrhoea e DNA JERMAINE+probe Ql (Unsp spec)on 08-11-2023 C. trachomatis rRNA JERMAINE+probe Ql (Unsp spec) Negative Normal Negative for Chlamydia trachomatis by amplificaton [facility] Comment on above: Order Comment: Speci men Type: SWABOrdering Facility: [facility] Address: [address] [place] [address] Performed By: #### 3 6902-5 ####[facility] LABCLIA [id number] [address] STATES OF HE N. gonorrhoeae rRNA JERMAINE+probe Ql (Unsp spec) Negative Normal Negative for Neisseria gonorrhoeae by amplification [facility] Comment on above: Order Comment: Speci men Type: SWABOrdering Facility: [facility] Address: [address] [place] [address] Performed By: #### 3 6902-5 ####[facility] LABCLIA [id number] [place] [address] [place] CNOVon 08-11-2023 CNOV Office Visit (OBGMEM ) SHERIE RIZVI ([id number]) 4 F Date Time Provider Department 08/11/23 [...] OB History No obstetric history on file. Manager Language History LMP: Drug Induced Amenorrhea Age at Menarche: Age at First : Age at Menopause: Manager Language History Comments: Sexual Activity: No sexual activity [...] external genitalia normal, normal Bartholin's glands, urethra, Stonega's glands, no vulvar lesions, no cervical lesions, [...] 1 ta (more content not included)... Normal [facility] PAP TESTon 08-11-2023 ADEQUACY Normal [facility] Comment on above: Order Comment: Speci men Type: FLUID SPECIMENOrdering Facility: [facility] Address: [address] [place] [address] Result Comment: Sati sfactory for interpretation Excess blood Performed By: #### L [id number] ####[facility] LABCLIA [id number] [place] [address] [place] CASE REPORT Normal [facility] Comment on above: Order Comment: Speci men Type: FLUID SPECIMENOrdering Facility: [facility] Address: [address] [place] [address] Result Comment: Gyne cologic Cytology Report Case: [id number] Authorizing Provider: Leonie Tiwari MD Collected: 08/11/2023 03:24 PM Ordering Location: Obstetrics/Gynecology Received: 08/14/2023 07:54 AM First Screen: Abhishek Lee Tech Specimen: Pap Test, ThinPrep, Cervix Performed By: #### L [id number] ####[facility] LABCLIA [id number] [place] [address] [place] CLINICAL HISTORY, CYTOLOGY, PHARMACEUTICAL SCIENTIST Routine Exam Normal [facility] Comment on above: Order Comment: Speci men Type: FLUID SPECIMENOrdering Facility: [facility] Address: [address] [place] [address] Performed By: #### L [id number] ####[facility] LABCLIA [id number] [address] [address] [place] FINAL PERFORMING LAB Normal [facility] Comment on above: Order Comment: Speci men Type: FLUID SPECIMENOrdering Facility: [facility] Address: [address] [place] [id number] Result Comment: Tech nical component, physical therapy coordinator screening performed at [facility], [address] [place] [address] CLIA# [id number] Diagnostic interpretation performed at [facility], [address] [place] [address] CLIA# [id number] Special Crimes Investigator: Patrick Ron M.D. Performed By: #### L [id number] ####[facility] LABCLIA [id number] [address] [address] [place] GROSS DESCRIPTION A. Cervix Normal [facility] Comment on above: Order Comment: Speci men Type: FLUID SPECIMENOrdering Facility: [facility] Address: [address] [place] [address] Result Comment: Glac ial Acetic Acid added. Performed By: #### L [id number] ####[facility] LABCLIA [id number] [address] [address] [place] HPV REFLEX HPV if Atypical Normal [facility] Comment on above: Order Comment: Speci men Type: FLUID SPECIMENOrdering Facility: [facility] Address: [address] [place] [address] Performed By: #### L [id number] ####[facility] LABCLIA [id number] [address] [address] [place] INTERPRETATION, CYTOLOGY, PHARMACEUTICAL SCIENTIST Normal [facility] Comment on above: Order Comment: Speci men Type: FLUID SPECIMENOrdering Facility: [facility] Address: [address] [place] [address] Result Comment: Nega tive for intraepithelial lesion or malignancy. Performed By: #### L [id number] ####[facility] LABCLIA [id number] [address] [address] [place] [facility] 08/09/2023 Normal [facility] Comment on above: Order Comment: Speci men Type: FLUID SPECIMENOrdering Facility: [facility] Address: [address] [place] [address] Performed By: #### L [id number] ####[facility] LABCLIA [id number] [place] [address] [place] PAP DISCLAIMER COMMENT The Pap Smear is a screening test for cervical cancer. False negative results occur with all screening tests, emphasizing the need for rescreening at recommended intervals, and clinical correlation. Normal [facility] Comment on above: Order Comment: Speci men Type: FLUID SPECIMENOrdering Facility: [facility] Address: [address] [place] [address] Performed By: #### L [id number] ####[facility] LABCLIA [id number] [place] [address] [place] PAP INTRAMURAL DIRECTOR COMMENT This specimen has be en analyzed by the ThinPrep Imaging System, an automated imaging and review system, which assists the laboratory in evaluating cells on ThinPrep Pap tests. Following automated imaging, selected lamas from every slide are reviewed by a physical therapy coordinator. Normal [facility] Comment on above: Order Comment: Speci men Type: FLUID SPECIMENOrdering Facility: [facility] Address: [address] [place] [address] Performed By: #### L [id number] ####[facility] LABCLIA [id number] [place] [address] [place] MICRO OTHER TESTSOrdered By: Yessy Guerrero on 07-14-2023 Influenzae A Ag Negative (07/14/23 5:47 AM) Normal Negative [facility] Man Sero Influenzae B Ag Negative 1 (07/14/23 5:47 AM) Normal Negative [facility] Sero Comment on above: Interpretive Data: T [...] NEG Ctl Pass (07/14/23 5:47 AM) Normal [facility] Man Sero Rapid COV Int POS Ctl Pass (07/14/23 5:47 AM) Normal [facility] Sero SARS-CoV+SARS-CoV-2 (COVID-19) Ag IA.rapid Ql (Resp) Detected 2 *ABN* (07/14/23 5:47 AM) Invalid Interpretation Code Not Detected [facility] Sero Comment on above: Interpretive Data: T he [employer] Veritor System for Rapid Detection of SARS-CoV-2 [...] the authorization is terminated or revoked sooner. SEROLOGYOrdered By: Lili Guerrero on 07-14-2023 Heterophile Ab LA Ql (S) Negative (07/14/23 5:46 AM) Normal Negative [facility] Man Sero CHEMISTRYOrdered By: SYSTEM SYSTEM on 04-12-2023 Anion gap [Moles/Vol] 13 mmol/L Normal 6 - 16 mEq/L [facility] Calcium [Mass/Vol] 8.8 mg/dL Low 8.9 - 11. 1 mg/dL [facility] Chloride [Moles/Vol] 106 mmol/L Normal 101 - 1 11 mmol/L [facility] CO2 [Moles/Vol] 24 mmol/L Normal 21 - 31 mmol/L [facility] Creatinine [Mass/Vol] 0.9 mg/dL Normal 0.5 - 1.3 mg/dL [facility] GFR/1.73 sq M.predicted among non-blacks MDRD (S/P/Bld) [Vol rate/Area] 94 mL/min/1.73 m2 Normal >=59mL/min/1.73 m2 [facility] Chem S Glucose [Mass/Vol] 109 mg/dL Normal 55 - 199 mg/dL [facility] Potassium [Moles/Vol] 3.6 mmol/L Normal 3.5 - 5.3 mmol/L [facility] Sodium [Moles/Vol] 139 mmol/L Normal 135 - 145 mmol/L [facility] Urea nitrogen [Mass/Vol] 16 mg/dL Normal 5 - 21 mg/dL [facility] Urea nitrogen/Creatinine [Mass ratio] 18 mg/mg Normal 10 - 20 [facility] HEMATOLOGYOrdered By: SYSTEM SYSTEM on 04-12-2023 Basophils/100 WBC (Bld) 0.4 % Normal 0.0 - 2.0 % [facility] HemeAutoSS Basophils/Leukocytes Auto (Bld) [Pure # fraction] 0.0 E9/L Normal 0.0 - 0.2 E9/L [facility]eAutoSS Eosinophils/100 WBC (Bld) 1.2 % Normal 0.0 - 8.0 % [facility] [...] 60.7 % Normal 36.0 - 75.0 % [facility]AutoSS Neutrophils/Leukocyt es Auto (Bld) [Pure # fraction] 5.7 E9/L Normal 2.0 - 7.5 E9/L [facility]eAutoSS HEMATOLOGYOrdered By: Shadi Pack on 04-12-2023 Erythrocyte distribution width (RBC) [Ratio] 13.1 % Normal 10.9 - 14.2 % [facility] Hematocrit (Bld) [Volume fraction] 36.0 % Normal 34.0 - 46.0 % [facility] Hemoglobin (Bld) [Mass/Vol] 12.1 g/dL Normal 12.0 - 16.0 gm/dL [facility] MCH (RBC) [Entitic mass] 28.3 pg Normal 27.0 - 34.0 pg [facility] MCHC (RBC) [Mass/Vol] 33.5 g/dL Normal 31.4 - 36.0 gm/dL [facility] MCV (RBC) [Entitic vol] 84.4 fL Normal 80.0 - 100.0 fL [facility] Platelet mean volume (Bld) [Entitic vol] 8.4 fL Normal 6.4 - 10.8 fL [facility]eAutoSS Platelets (Bld) [#/Vol] 271.0 E9/L Normal 150.0 - 500.0 E9/L [facility] RBC (Bld) [#/Vol] 4.3 E12/L Normal 4.3 - 5.9 E12/L [facility]eAutoSS WBC corrected for nucl RBC Auto (Bld) [#/Vol] 9.5 E9/L Normal 4.0 - 11.0 E9/L [facility] HemeAutoSS SEROLOGYOrdered By: Shadi mccord on 04-12-2023 HCG.beta subunit (U) [Moles/Vol] Negative Normal [facility]ero URINALYSISOrdered By: Shadi Pack on 04-12-2023 Bacteria LM Ql (Urine sed) Trace /HPF Normal Trace/HPF [facility] UA Auto [...] AM) Normal Negative [facility] UA Auto SS [place].plasma/Lithi um.RBC (Bld) [Mass ratio] 4-20 /HPF Normal [...] AM) Invalid Interpretation Code 1.005 - 1.030 [facility] UA Auto SS UA Spec Desc Clean Catch (04/12/23 2:05 AM) Normal [facility] UA Auto SS Urobilinogen Qn (U) [id number] {Angelic'U}/dL Normal 0.0 - 1.0 EU/dL [facility] UA Auto SS WBC Auto Ql (U) Negative (04/12/23 2:05 AM) Normal Negative [facility] UA Auto SS WBC LM.HPF (Urine sed) [#/Area] 0-5 /HPF Normal 0-5/HPF [facility] UA Auto SS CHEMISTRYOrdered By: SYSTEM SYSTEM on 03-19-2023 Albumin [Mass/Vol] 3.7 g/dL Normal 3.3 - 5.0 gm/dL F [facility] Remisol Albumin/Globulin [Mass ratio] 1.1 {ratio} Normal [...] 30 U/L Normal 13 - 58 unit/L [facility] Potassium [Moles/Vol] 3.9 mmol/L Normal 3.5 - 5.3 mmol/L [facility] Protein [Mass/Vol] 7.0 g/dL Normal 6.0 - 7.8 gm/dL [facility] Remisol Sodium [Moles/Vol] 138 mmol/L Normal 135 [...] 37.9 % Normal 14.0 - 50.0 % [facility]eAutoSS Lymphocytes/Leukocyt es Auto (Bld) [Pure # fraction] 3.2 E9/L Normal 1.0 - 4.0 E9/L [facility] Monocytes/100 WBC (Bld) 6.3 % Normal 4.0 - 14.0 % [facility]eAutoSS Monocytes/Leukocytes Auto (Bld) [Pure # fraction] 0.5 E9/L Normal 0.2 - 1.0 E9/L [facility] Neutrophils/100 WBC (Bld) 53.2 % Normal 36.0 - 75.0 % [facility]eAutoSS Neutrophils/Leukocyt es Auto (Bld) [Pure # fraction] 4.4 E9/L Normal 2.0 - 7.5 E9/L [facility] HemeAutoSS HEMATOLOGYOrdered By: Yuliet Marcos on 03-19-2023 Erythrocyte distribution width (RBC) [Ratio] 13.6 % Normal 10.9 - 14.2 % [facility]eAutoSS Hematocrit (Bld) [Volume fraction] 43.9 % Normal 34.0 - 46.0 % [facility] Hemoglobin (Bld) [Mass/Vol] 14.7 g/dL Normal 12.0 - 16.0 gm/dL [facility] MCH (RBC) [Entitic mass] 29.3 pg Normal 27.0 - 34.0 pg [facility] MCHC (RBC) [Mass/Vol] 33.6 g/dL Normal 31.4 - 36.0 gm/dL [facility] MCV (RBC) [Entitic vol] 87.3 fL Normal 80.0 - 100.0 fL [facility] Platelet mean volume (Bld) [Entitic vol] 8.4 fL Normal 6.4 - 10.8 fL [facility] Platelets (Bld) [#/Vol] 263.0 E9/L Normal 150.0 - 500.0 E9/L [facility] RBC (Bld) [#/Vol] 5.0 E12/L Normal 4.3 - 5.9 E12/L [facility] WBC corrected for nucl RBC Auto (Bld) [#/Vol] 8.3 E9/L Normal 4.0 - 11.0 E9/L [facility] SEROLOGYOrdered By: Lili Guerreor on 03-19-2023 Beta hCG Ql Negative (03/19/23 7:08 AM) Normal [facility]ero SEROLOGYOrdered By: Eddi null on 11-11-2022 HCG.beta subunit (U) [Moles/Vol] Negative Normal [facility] URINALYSISOrdered By: Eddi snowden on [...] PM) Normal Negative [facility] UA Auto SS [place].plasma/Lithi um.RBC (Bld) [Mass ratio] 0-3 /HPF Normal [...] PM) Invalid Interpretation Code 1.005 - 1.030 [facility] UA Auto SS UA Spec Desc Clean Catch (11/11/22 4:12 PM) Normal [facility] UA Auto SS Urobilinogen Qn (U) [id number] {Angelic'U}/dL Normal 0.0 - 1.0 EU/dL [facility] UA Auto SS WBC Auto Ql (U) Negative (11/11/22 4:12 PM) Normal Negative [facility] UA Auto SS WBC LM.HPF (Urine sed) [#/Area] 6-15 /HPF Invalid Interpretation Code 0-5/HPF [facility] UA Auto SS CARDIAC MARTELL ADMITon 023 CK [Catalytic activity/Vol] 88 U/L Normal 26-192 [facility] Comment on above: Performed By: #### C KATRIN DEVLIN #### [facility] [address] [place] [address] Dr. Diandra Mays CK.MB [Mass/Vol] ng/mL Normal <=3.60 [facility] Comment on above: Performed By: #### C KATRIN DEVLIN #### [facility] [address] [place] [address] Dr. Diandra Mays HSTROP <4.0 Normal 4.0-51.3 [facility] Comment on above: Result Comment: CUT- OFF POINTS HAVE BEEN ESTABLISHED BASED ON THE FOURTH UNIVERSAL DEFINITIONS OF MYOCARDIAL INFARCTION. THE UPPER REFERENCE LIMIT (URL) OF TROPONIN, DEFINED THE 99TH PERCENTILE OF cTnI DISTRIBUTION IN A REFERENCE POPULATION, HAS BEEN CONFIRMED THE DECISION THRESHOLD FOR [place] DIAGNOSIS. Performed By: #### C KATRIN DEVLIN #### [facility] [address] [place] [address] Dr. Diandra Mays ASTRID 21 ng/mL Normal 9-82 [facility] Comment on above: Performed By: #### C KATRIN DEVLIN #### [facility] [address] [place] [address] Dr. Diandra Masy CBC AUTO DIFFon 10-05-2022 BASO # 0.1 103/ul Normal 0.0-0.1 [facility] Comment on above: Performed By: #### C BC #### [facility] [address] [place] [address] Dr. Diandra Mays Basophils/100 WBC (Bld) 0.6 % Normal 0.2-2.0 [facility] Comment on above: Performed By: #### C BC #### [facility] [address] [place] [address] Dr. Diandra Mays EO # 0.2 103/ul Normal 0.0-0.7 [facility] Comment on above: Performed By: #### C BC #### [facility] [address] [place] [address] Dr. Diandra Mays Eosinophils/100 WBC (Bld) 1.8 % Normal 0.9-7.0 [facility] Comment on above: Performed By: #### C BC #### [facility] [address] [place] [address] Dr. Diandra Mays Erythrocyte distribution width (RBC) [Ratio] 14.4 % Normal 11.0-15.0 [facility] Comment on above: Performed By: #### C BC #### [facility] [address] [place] [address] Dr. Diandra Mays Hematocrit (Bld) [Volume fraction] 45.3 % Normal 36.0-48.0 [facility] Comment on above: Performed By: #### C BC #### [facility] [address] [place] [address] Dr. Diandra Mays Hemoglobin (Bld) [Mass/Vol] 14.8 g/dL Normal 12.0-16.0 [facility] Comment on above: Performed By: #### C BC #### [facility] [address] [place] [address] Dr. Diandra Mays IG # 0.03 10e3/ul Normal 0.00-0.03 [facility] Comment on above: Performed By: #### C BC #### [facility] [address] [place] [address] Dr. Diandra Mays IG % 0.3 % Normal 0.0-0.5 [facility] Comment on above: Performed By: #### C BC #### [facility] [address] [place] [address] Dr. Diandra Mays LYMPH # 3.8 103/ul Normal 1.2-3.8 [facility] Comment on above: Performed By: #### C BC #### [facility] [address] [place] [address] Dr. Diandra Mays Lymphocytes/100 WBC (Bld) 33.8 % Normal 20.5-60.0 [facility] Comment on above: Performed By: #### C BC #### [facility] [address] [place] [address] Dr. Diandra Mays MANUAL DIFF REQ NO Normal [facility] Comment on above: Performed By: #### C BC #### [facility] [address] [place] [address] Dr. Diandra Mays MCH (RBC) [Entitic mass] 29.4 pg Normal 26.7-34.0 [facility] Comment on above: Performed By: #### C BC #### [facility] [address] [place] [address] Dr. Diandra Mays MCHC (RBC) [Mass/Vol] 32.7 g/dL Normal 29.9-35.2 [facility] Comment on above: Performed By: #### C BC #### [facility] [address] [place] [address] Dr. Diandra Mays MCV (RBC) [Entitic vol] 90.1 fL Normal 81.0-99.0 [facility] Comment on above: Performed By: #### C BC #### [facility] [address] [place] [address] Dr. Diandra Mays MONO # 0.9 103/ul Critically high 0.3-0.8 [facility] Comment on above: Performed By: #### C BC #### [facility] [address] [place] [address] Dr. Diandra Mays Monocytes/100 WBC (Bld) 8.1 % Normal 1.7-12.0 [facility] Comment on above: Performed By: #### C BC #### [facility] [address] [place] [address] Dr. Diandra Mays NEUT # 6.2 103/ul Normal 1.4-6.5 [facility] Comment on above: Performed By: #### C BC #### [facility] [address] [place] [address] Dr. Diandra Mays Neutrophils/100 WBC (Bld) 55.4 % Normal 43.0-75.0 [facility] Comment on above: Performed By: #### C BC #### [facility] [address] [place] [address] Dr. Diandra Mays Platelet mean volume (Bld) [Entitic vol] 10.1 fL Normal 9.5-13.5 [facility] Comment on above: Performed By: #### C BC #### [facility] [address] [place] [address] Dr. Diandra Mays PLT 331 103/ul Normal 150-450 [facility] Comment on above: Performed By: #### C BC #### [facility] [address] [place] [address] Dr. Diandra Mays RBC 5.03 106/ul Normal 4.20-5.40 [facility] Comment on above: Performed By: #### C BC #### [facility] [address] [place] [address] Dr. Diandra Mays WBC 11.1 103/ul Critically high 4.0-11.0 [facility] Comment on above: Performed By: #### C BC #### [facility] [address] [place] [address] Dr. Diandra Mays Covid-19 PCR (CVDTB)on SARS-CoV-2 (COVID-19) RNA JERMAINE+probe Ql (Unsp spec) Not detected Normal NOT DETECTED [facility] Comment on above: Result Comment: This test is not yet approved or cleared by the [place] FDA. When there are no FDA-approved or cleared tests available, and other criteria are met, FDA can make tests available under an emergency access mechanism called an Emergency Use Authorization (EUA). The EUA for this test is supported by the [place] of Health and Human Service's (HHS's) declaration [...] SARS-CoV-2. Performed By: #### I NFLUAB #### [facility] [address] [place] [address] Dr. Diandra Mays ER URINE PROFILEon 3 Bilirubin Ql (U) Negative Normal NEGATIVE [facility] Comment on above: Performed By: #### P REGU, ERUR, UMICRO #### [facility] [address] [place] [address] Dr. Diandra Mays Clarity (U) CLEAR Normal CLEAR [facility] Comment on above: Performed By: #### P REGU, ERUR, UMICRO #### [facility] [address] [place] [address] Dr. Diandra Mays Color (U) YELLOW Normal YELLOW [facility] Comment on above: Performed By: #### P REGU, ERUR, UMICRO #### [facility] [address] [place] [address] Dr. Diandra ROWELL A micrscopic examination will be performed if indicated. Normal [facility] Comment on above: Performed By: #### P REGU, ERUR, UMICRO #### [facility] [address] [place] [address] Dr. Diandra Mays Glucose Ql (U) Negative Normal NEGATIVE [facility] Comment on above: Performed By: #### P REGU, ERUR, UMICRO #### [facility] [address] [place] [address] Dr. Diandra Mays Hemoglobin Ql (U) LARGE Abnormal NEGATIVE [facility] Comment on above: Performed By: #### P REGU, ERUR, UMICRO #### [facility] [address] [address] [address] Diandra Mays Ketones Ql (U) Negative Normal NEGATIVE [facility] Comment on above: Performed By: #### P REGU, ERUR, UMICRO #### [facility] [address] [address] [address] Diandra Mays LEUKOCYTES Negative Normal NEGATIVE [facility] Comment on above: Performed By: #### P REGU, ERUR, UMICRO #### [facility] [address] [address] [address] Diandra Mays Nitrite Ql (U) Negative Normal NEGATIVE [facility] Comment on above: Performed By: #### P REGU, ERUR, UMICRO #### [facility] [address] [place] [address] Dr. Diandra Mays pH (U) 6.0 [pH] Normal 5-9 [facility] Comment on above: Performed By: #### P REGU, ERUR, UMICRO #### [facility] [address] [place] [address] Dr. Diandra Mays SPEC GRAVITY >=1.030 Abnormal 1.005-<=1.025 [facility] Comment on above: Performed By: #### P REGU ERUR, UMICRO #### [facility] [address] [place] [address] Dr. Diandra Mays UA PROTEIN Negative Normal NEGATIVE/ TRACE [facility] Comment on above: Performed By: #### P REGU, ERUR, UMICRO #### [facility] [address] [place] [address] Dr. Diandra Mays UR MICRO IND INDICATED Normal [facility] Comment on above: Performed By: #### P REGU ERUR, UMICRO #### [facility] [address] [place] [address] Dr. Diandra Mays Urobilinogen Qn (U) 1.0 {Angelic'U}/dL Normal 0.2 - 1. 0 [facility] Comment on above: Performed By: #### P REGU, ERUR, UMICRO #### [facility] [address] [address] [address] Diandra Mays INFLUENZA A AND B AGon 10-05 INFLUENZA A AG Negative Normal NEGATIVE SEE COMMENT [facility] Comment on above: Performed By: #### I NFLUAB #### [facility] [address] [address] [address] Diandra Mays INFLUENZA B AG Negative Normal NEGATIVE SEE COMMENT [facility] Comment on above: Performed By: #### I NFLUAB #### [facility] [address] [address] [address] Diadnra Mays URon 10-05-2022 , QUAL Negative Normal NEGATIVE [facility] Comment on above: Performed By: #### P MICHAEL CANNON ESPERANZARO #### [facility] [address] [address] [address] Diandra Mays PROF 14(COMP METB)on 023 Albumin [Mass/Vol] 3.9 g/dL Normal 3.4-5.0 [facility] Comment on above: Performed By: #### C CLAUS, CMADM #### [facility] [address] [address] [address] Diandra Mays Albumin/Globulin [Mass ratio] 1.1 {ratio} Normal [facility] Comment on above: Performed By: #### C CLAUS, CMADM #### [facility] [address] [address] [address] Diandra Mays ALP [Catalytic activity/Vol] 86 U/L Normal 46-116 [facility] Comment on above: Performed By: #### C CLAUS, CMADM #### [facility] [address] [address] [address] Diandra Mays ALT [Catalytic activity/Vol] 14 U/L Normal 14-59 [facility] Comment on above: Performed By: #### C CLAUS, CMADM #### [facility] [address] [address] [address] Diandra Mays Anion gap [Moles/Vol] 13.1 mmol/L Normal [facility] Comment on above: Performed By: #### C CLAUS, CMADM #### [facility] [address] [address] [address] Diandra Mays AST [Catalytic activity/Vol] 18 U/L Normal 15-37 [facility] Comment on above: Performed By: #### C MP, CMADM #### [facility] [address] [address] [address] Diandra Mays Bilirubin [Mass/Vol] 1.0 mg/dL Normal 0.2-1.0 [facility] Comment on above: Performed By: #### C MP, CMADM #### [facility] [address] [address] [address] Diandra Mays Calcium [Mass/Vol] 9.1 mg/dL Normal 8.5-10.1 [facility] Comment on above: Performed By: #### C MP, CMADM #### [facility] [address] [address] [address] Diandra Mays Chloride [Moles/Vol] 103 mmol/L Normal 98-107 [facility] Comment on above: Performed By: #### C MP, CMADM #### [facility] [address] [address] [address] Diandra Mays CO2 [Moles/Vol] 26.3 mmol/L Normal 21.0-32.0 [facility] Comment on above: Performed By: #### C MP, CMADM #### [facility] [address] [address] [address] Diandra Mays Creatinine [Mass/Vol] 0.74 mg/dL Normal 0.55-1.02 [facility] Comment on above: Performed By: #### C MP, CMADM #### [facility] [address] [address] [address] Diandra Mays EGFR-AF CANADIAN >60 Normal >=60 [facility] Comment on above: Performed By: #### C MP, CMADM #### [facility] [address] [address] [address] Diandra Mays EGFR-NON AF CANADIAN >60 Normal >=60 [facility] Comment on above: Performed By: #### C MP, CMADM #### [facility] [address] [address] [address] Diandra Mays Globulin (S) [Mass/Vol] 3.4 g/dL Normal [facility] Comment on above: Performed By: #### C MP, CMADM #### [facility] [address] [address] [address] Diandra Mays Glucose [Mass/Vol] 91 mg/dL Normal 74-106 [facility] Comment on above: Performed By: #### C MP, CMADM #### [facility] [address] [address] [address] Diandra Mays Potassium [Moles/Vol] 3.4 mmol/L Critically low 3.5-5.1 [facility] Comment on above: Performed By: #### C CLAUS, CMADM #### [facility] [address] [place] [address] Dr. Diandra Mays Protein [Mass/Vol] 7.3 g/dL Normal 6.4-8.2 [facility] Comment on above: Performed By: #### C CLAUS, CMADM #### [facility] [address] [address] [address] Diandra Mays Sodium [Moles/Vol] 139 mmol/L Normal 136-145 [facility] Comment on above: Performed By: #### C CLAUS, CMADM #### [facility] [address] [address] [address] Diandra Mays Urea nitrogen [Mass/Vol] 13.0 mg/dL Normal 7.0-18.0 [facility] Comment on above: Performed By: #### C CLAUS, CMADM #### [facility] [address] [address] [address] Diandra Mays Urea nitrogen/Creatinine [Mass ratio] 17.6 mg/mg Normal [facility] Comment on above: Performed By: #### C CLAUS, CMADM #### [facility] [address] [address] [address] Diandra Mays URINE MICROSCOPIC ONLYon BACTERIA NONE SEEN Normal NONE SEEN [facility] Comment on above: Performed By: #### P REGU, ERUR, UMICRO #### [facility] [address] [address] [address] Diandra Mays Bacteria identified Cx Nom (U) NOT INDICATED Normal [facility] Comment on above: Performed By: #### P REGU, ERUR, UMICRO #### [facility] [address] [address] [address] Diandra Mays CAST NONE SEEN Normal NONE SEEN [facility] Comment on above: Performed By: #### P REGU, ERUR, UMICRO #### [facility] [address] [address] [address] Diandra Mays Crystals LM Nom (Urine sed) NONE SEEN Normal NONE SEEN [facility] Comment on above: Performed By: #### P REGU, ERUR, UMICRO #### [facility] [address] [address] [address] Diandra Mays Epithelial cells LM Ql (Urine sed) FEW Abnormal NONE SEEN /RARE [facility] Comment on above: Performed By: #### P REGU, ERUR, UMICRO #### [facility] [address] [address] [address] Diandra Mays MUCOUS NONE SEEN Normal NONE SEEN [facility] Comment on above: Performed By: #### P REGU, ERUR, UMICRO #### [facility] [address] [address] [address] Diandra Mays RBC 20-50 Abnormal 0-2 [facility] Comment on above: Performed By: #### P REGU, ERUR, UMICRO #### [facility] [address] [address] [address] Diandra Mays WBC 2-5 Abnormal NONE SEEN [facility] Comment on above: Performed By: #### P REGU, ERUR, UMICRO #### [facility] [address] [address] [address] Diandra Mays STREPT SCREENon 08-14-2022 STREP SCREEN A Positive Abnormal NEGATIVE [facility] Comment on above: Performed By: #### S SCRN #### [facility] [address] [place] [address] Dr. Diandra Mays Covid-19 PCR ([facility])on SARS-CoV-2 (COVID-19) RNA JERMAINE+probe Ql (Unsp spec) Not detected Normal NOT DETECTED [facility] Comment on above: Result Comment: [...] for this test is supported by the [employer] Manager of Health and Human Service's declaration that [...] used). Performed By: #### C VDTB #### [facility] [address] [place] [address] Dr. Diandra Mays INFLUENZA A AND B AGon 08-08 [facility] SEE BELOW Normal [facility] Comment on above: Result Comment: Nega tive for Flu B protein antigen. Infection due to Flu B cannot be ruled out. Flu B antigen in the sample may be below the detection limit of the test. Performed By: #### I NFLUAB #### [facility] [address] [place] [address] Dr. Diandra Mays INFLUENZA A AG Positive Abnormal NEGATIVE SEE COMMENT [facility] Comment on above: Performed By: #### I NFLUAB #### [facility] [address] [place] [address] Dr. Diandra Mays INFLUENZA B AG Negative Normal NEGATIVE SEE COMMENT [facility] Comment on above: Performed By: #### I NFLUAB #### [facility] [address] [place], [place] [address] Dr. Diandra Mays INFLUPOSH SEE BELOW Normal [facility] Comment on above: Result Comment: NOTE : Live attenuated influenzae vaccine viruses can cause a positive result for a rapid influenza diagnostic test if administered up to 7 days prior to rapid testing. Performed By: #### I NFLUAB #### [facility] [address] [place], [place] [address] Dr. Diandra Mays INTERNAL CONTROLS Within Normal Limits Normal Wi thin Normal Limits [facility] Comment on above: Performed By: #### I NFLUAB #### [facility] [address] [place], [place] [address] Dr. Diandra Mays MICRO OTHER TESTSOrdered By: Rita Elena on 06-28-2022 S. pyogenes Ag IA.rapid Ql (Throat) Negative (06/28/22 6:21 PM) Normal Negative [facility] Man Sero Vital Signs Date Time Vital Sign Value Performing Clinician Facility 10-28-2024 09:00-0500 Diastolic blood pressure 82 mm[Hg] Rey Barrera [facility] 10-28-2024 09:00-0500 Heart rate 73 /min Rey Barrera [facility] 10-28-2024 09:00-0500 Mean blood pressure 92 mm[Hg] Rey Barrera [facility] 10-28-2024 09:00-0500 SaO2% (BldA) [Mass fraction] 97 % Rey Barrera [facility] 10-28-2024 09:00-0500 Systolic blood pressure 112 mm[Hg] Rey Barrera [facility] 10-28-2024 08:24-0500 Diastolic blood pressure 70 mm[Hg] Rey Barrera [facility] 10-28-2024 08:24-0500 Heart rate 79 /min Rey Barrera [facility] 10-28-2024 08:24-0500 Mean blood pressure 83 mm[Hg] Rey Barrera [facility] 10-28-2024 08:24-0500 Respiratory rate 16 /min Rey Barrera [facility] 10-28-2024 08:24-0500 SaO2% (BldA) [Mass fraction] 99 % Rey Barrera [facility] 10-28-2024 08:24-0500 Systolic blood pressure 109 mm[Hg] Rey Barrera [facility] 10-28-2024 07:42-0500 Diastolic blood pressure 107 mm[Hg] Rey Barrera [facility] 10-28-2024 07:42-0500 Heart rate 81 /min Rey Barrera [facility] 10-28-2024 07:42-0500 Mean blood pressure 119 mm[Hg] Rey Barrera [facility] 10-28-2024 07:42-0500 SaO2% (BldA) [Mass fraction] 99 % Rey Barrera [facility] 10-28-2024 07:42-0500 Systolic blood pressure 144 mm[Hg] Rey Barrera [facility] 10-28-2024 06:47-0500 Body temperature 98.24 [degF] Rey Barrera [facility] 10-28-2024 06:47-0500 Heart rate 81 /min Reyneda Barrera [facility] 10-10-2024 13:51-0500 Blood Pressure Location Yessy Guerrero [facility] 10-10-2024 13:51-0500 Body temperature 98.42 [degF] Yessy Guerrero [facility] 10-10-2024 13:51-0500 Diastolic blood pressure 80 mm[Hg] Yessy Guerrero [facility] 10-10-2024 13:51-0500 Heart rate 87 /min Yessy Guerrero [facility] 10-10-2024 13:51-0500 Respiratory rate 18 /min Yessy Guerrero [facility] 10-10-2024 13:51-0500 SaO2% (BldA) [Mass fraction] 94 % Yessy Guerrero [facility] 10-10-2024 13:51-0500 Systolic blood pressure 108 mm[Hg] Yessy Guerrero [facility] 07-29-2024 05:59-0500 Body temperature 98.42 [degF] Jose Minh [facility] 07-29-2024 05:59-0500 Diastolic blood pressure 77 mm[Hg] Jose Minh [facility] 07-29-2024 05:59-0500 Heart rate 92 /min Jose Minh [facility] 07-29-2024 05:59-0500 Respiratory rate 17 /min Jose Minh [facility] 07-29-2024 05:59-0500 SaO2% (BldA) [Mass fraction] 97 % Jose Minh [facility] 07-29-2024 05:59-0500 Systolic blood pressure 115 mm[Hg] Jose Minh [facility] 06-28-2024 14:53-0400 Body temperature 98.96 [degF] Luís Shannone [facility] 06-28-2024 14:53-0400 Diastolic blood pressure 91 mm[Hg] Luís Gin [facility] 06-28-2024 14:53-0400 Heart rate 102 /min Luís Gin [facility] 06-28-2024 14:53-0400 Respiratory rate 16 /min Luís Gin [facility] 06-28-2024 14:53-0400 SaO2% (BldA) [Mass fraction] 100 % Luís Gin [facility] 06-28-2024 14:53-0400 Systolic blood pressure 123 mm[Hg] Luís Gin [facility] 06-11-2024 12:00-0400 Diastolic blood pressure 72 mm[Hg] Luís Gin [facility] 06-11-2024 12:00-0400 Heart rate 84 /min Luís Gin [facility] 06-11-2024 12:00-0400 SaO2% (BldA) [Mass fraction] 99 % Luís Gin [facility] 06-11-2024 12:00-0400 Systolic blood pressure 105 mm[Hg] Luís Gin [facility] 06-11-2024 11:30-0400 Diastolic blood pressure 71 mm[Hg] Luís Gin [facility] 06-11-2024 11:30-0400 Heart rate 83 /min Luís Gin [facility] 06-11-2024 11:30-0400 Mean blood pressure 83 mm[Hg] Luís Gin [facility] 06-11-2024 11:30-0400 Respiratory rate 16 /min Luís Greenfield [facility] 06-11-2024 11:30-0400 SaO2% (BldA) [Mass fraction] 98 % Luís Greenfield [facility] 06-11-2024 11:30-0400 Systolic blood pressure 106 mm[Hg] Luís Shannone [facility] 06-11-2024 10:40-0400 Body temperature 97.7 [degF] Luís Greenfield [facility] 06-11-2024 10:40-0400 Diastolic blood pressure 102 mm[Hg] Luís Greenfield [facility] 06-11-2024 10:40-0400 Heart rate 88 /min Luís Greenfield [facility] 06-11-2024 10:40-0400 Respiratory rate 18 /min Luís Greenfield [facility] 06-11-2024 10:40-0400 SaO2% (BldA) [Mass fraction] 97 % Luís Greenfield [facility] 06-11-2024 10:40-0400 Systolic blood pressure 133 mm[Hg] Luís Greenfield [facility] 05-29-2024 02:03-0400 Body temperature 98.24 [degF] Jose Minh [facility] 05-29-2024 02:03-0400 Diastolic blood pressure 86 mm[Hg] Jose Minh [facility] 05-29-2024 02:03-0400 Heart rate 99 /min Jose Minh [facility] 05-29-2024 02:03-0400 Respiratory rate 16 /min Jose Minh [facility] 05-29-2024 02:03-0400 SaO2% (BldA) [Mass fraction] 97 % Jose Minh [facility] 05-29-2024 02:03-0400 Systolic blood pressure 134 mm[Hg] Jose Minh [facility] 05-27-2024 13:22-0400 Blood Pressure Location NATA MEDINA [facility] 05-27-2024 13:22-0400 Body temperature 98.6 [degF] WALDORF MEDINA [facility] 05-27-2024 13:22-0400 Diastolic blood pressure 82 mm[Hg] WALDORF MEDINA [facility] 05-27-2024 13:22-0400 Heart rate 107 /min WALDORF MEDINA [facility] 05-27-2024 13:22-0400 Respiratory rate 16 /min WALDORF MEDINA [facility] 05-27-2024 13:22-0400 SaO2% (BldA) [Mass fraction] 97 % WALDORF MEDINA [facility] 05-27-2024 13:22-0400 Systolic blood pressure 114 mm[Hg] WALDORF MEDNIA [facility] 12-01-2023 08:47-0400 Blood Pressure Location Luís Perla [facility] [place] 12-01-2023 08:47-0400 Diastolic blood pressure 75 mm[Hg] Luís Perla [facility] [place] 12-01-2023 08:47-0400 Heart rate 83 /min Luís Perla [facility] [place] 12-01-2023 08:47-0400 Systolic blood pressure 137 mm[Hg] Luís Perla [facility] 10-23-2023 13:40-0500 Heart rate 59 /min Gayle Arambula MD Work Phone: [facility] 10-23-2023 13:40-0500 SaO2% (BldA) [Mass fraction] 100 % Gayle Arambula MD Work Phone: [facility] 10-23-2023 13:30-0500 Diastolic blood pressure 73 mm[Hg] Gayle Arambula MD Work Phone: [facility] 10-23-2023 13:30-0500 Respiratory rate 16 /min Gayle Arambula MD Work Phone: [facility] 10-23-2023 13:30-0500 Systolic blood pressure 114 mm[Hg] Gayle Arambula MD Work Phone: [facility] 10-23-2023 13:06-0500 Body temperature 96.8 [degF] Gayle Arambula MD Work Phone: [facility] 10-23-2023 10:47-0500 Body weight 56.7 kg Gayle Arambula MD Work Phone: [facility] 07-14-2023 06:30-0500 Body temperature 98.6 [degF] Jose Minh [facility] 07-14-2023 06:30-0500 Diastolic blood pressure 94 mm[Hg] Jose Minh [facility] 07-14-2023 06:30-0500 Heart rate 95 /min Jose Minh [facility] 07-14-2023 06:30-0500 Mean blood pressure 101 mm[Hg] Jose Minh [facility] 07-14-2023 06:30-0500 Respiratory rate 16 /min Jose Minh [facility] 07-14-2023 06:30-0500 SaO2% (BldA) [Mass fraction] 98 % Jose Minh [facility] 07-14-2023 06:30-0500 Systolic blood pressure 115 mm[Hg] Jose Minh [facility] 07-14-2023 06:00-0500 Heart rate 88 /min Jose Minh [facility] 07-14-2023 06:00-0500 Mean blood pressure 104 mm[Hg] Jose Minh [facility] 07-14-2023 06:00-0500 Respiratory rate 17 /min Jose Minh [facility] 07-14-2023 06:00-0500 SaO2% (BldA) [Mass fraction] 99 % Jose Minh [facility] 07-14-2023 05:31-0500 Body temperature 98.6 [degF] Jose Mnih [facility] 07-14-2023 05:31-0500 Diastolic blood pressure 91 mm[Hg] Jose Minh [facility] 07-14-2023 05:31-0500 Heart rate 92 /min Jose Minh [facility] 07-14-2023 05:31-0500 Respiratory rate 16 /min Jose Minh [facility] 07-14-2023 05:31-0500 SaO2% (BldA) [Mass fraction] 98 % Jose Minh [facility] 07-14-2023 05:31-0500 Systolic blood pressure 129 mm[Hg] Jose Minh [facility] 07-14-2023 05:21-0500 Heart rate 93 /min Jose Wilkinson [facility] 06-21-2023 14:09-0400 Body height 157.5 cm Pastora Oh MD Work Phone: [facility] 06-21-2023 14:09-0400 Body weight 54.43 kg Pastora Oh MD Work Phone: [facility] 06-21-2023 14:09-0400 Diastolic blood pressure 87 mm[Hg] Pastora Oh MD Work Phone: [facility] 06-21-2023 14:09-0400 Heart rate 78 /min Pastora Oh MD Work Phone: [facility] 06-21-2023 14:09-0400 Systolic blood pressure 142 mm[Hg] Pastora Oh MD Work Phone: [facility] 04-12-2023 03:40-0400 Body temperature 98.06 [degF] Kaylinn Dokken [facility] 04-12-2023 03:40-0400 Diastolic blood pressure 81 mm[Hg] Kaylinn Dokken [facility] 04-12-2023 03:40-0400 Heart rate 63 /min Kaylinn Dokken [facility] 04-12-2023 03:40-0400 Mean blood pressure 92 mm[Hg] Kaylinn Dokken [facility] 04-12-2023 03:40-0400 SaO2% (BldA) [Mass fraction] 99 % Kaylinn Dokken [facility] 04-12-2023 03:40-0400 Systolic blood pressure 115 mm[Hg] Kaylinn Dokken [facility] 04-12-2023 03:00-0400 Diastolic blood pressure 86 mm[Hg] Kaylinn Dokken [facility] 04-12-2023 03:00-0400 Heart rate 64 /min Kaylinn Dokken [facility] 04-12-2023 03:00-0400 Mean blood pressure 95 mm[Hg] Kaylinn Dokken [facility] 04-12-2023 03:00-0400 Systolic blood pressure 113 mm[Hg] Kaylinn Dokken [facility] 04-12-2023 01:56-0400 Body temperature 98.24 [degF] Kaylinn Dokken [facility] 04-12-2023 01:56-0400 Diastolic blood pressure 82 mm[Hg] Kaylinn Dokken [facility] 04-12-2023 01:56-0400 Heart rate 65 /min Kaylinn Dokken [facility] 04-12-2023 01:56-0400 Respiratory rate 20 /min Kaylinn Dokken [facility] 04-12-2023 01:56-0400 SaO2% (BldA) [Mass fraction] 99 % Kaylinn Dokken [facility] 04-12-2023 01:56-0400 Systolic blood pressure 118 mm[Hg] Kaylinn Dokken [facility] 03-19-2023 08:49-0400 Diastolic blood pressure 83 mm[Hg] Jose Minh [facility] 03-19-2023 08:49-0400 Heart rate 86 /min Jose Minh [facility] 03-19-2023 08:49-0400 Mean blood pressure 97 mm[Hg] Jose Minh [facility] 03-19-2023 08:49-0400 SaO2% (BldA) [Mass fraction] 98 % Jose Minh [facility] 03-19-2023 08:49-0400 Systolic blood pressure 124 mm[Hg] Jose Minh [facility] 03-19-2023 06:46-0400 Body temperature 97.7 [degF] Jose Minh [facility] 03-19-2023 06:46-0400 Diastolic blood pressure 88 mm[Hg] Jose Minh [facility] 03-19-2023 06:46-0400 Heart rate 89 /min Jose Minh [facility] 03-19-2023 06:46-0400 Respiratory rate 18 /min Jose Minh [facility] 03-19-2023 06:46-0400 SaO2% (BldA) [Mass fraction] 97 % Jose Minh [facility] 03-19-2023 06:46-0400 Systolic blood pressure 130 mm[Hg] Jose Minh [facility] 11-11-2022 23:00-0500 Heart rate 72 /min Desean Villarrealen [facility] 11-11-2022 23:00-0500 Mean blood pressure 97 mm[Hg] Kaylinn Dokken [facility] 11-11-2022 22:00-0500 Diastolic blood pressure 103 mm[Hg] Kaylinn Dokken [facility] 11-11-2022 22:00-0500 Heart rate 68 /min Kaylinn Dokken [facility] 11-11-2022 22:00-0500 Mean blood pressure 110 mm[Hg] Kaylinn Dokken [facility] 11-11-2022 20:57-0500 Body temperature 98.24 [degF] Kaylinn Dokken [facility] 11-11-2022 20:57-0500 Diastolic blood pressure 83 mm[Hg] Kaylinn Dokken [facility] 11-11-2022 20:57-0500 Heart rate 73 /min Kaylinn Dokken [facility] 11-11-2022 20:57-0500 Respiratory rate 16 /min Kaylinn Dokken [facility] 11-11-2022 20:57-0500 SaO2% (BldA) [Mass fraction] 100 % Kaylinn Dokken [facility] 11-11-2022 20:57-0500 Systolic blood pressure 124 mm[Hg] Kaylinn Dokken [facility] 11-11-2022 17:00-0500 Diastolic blood pressure 76 mm[Hg] Rey Bruce [facility] 11-11-2022 17:00-0500 Heart rate 87 /min Rey Bruce [facility] 11-11-2022 17:00-0500 Respiratory rate 18 /min Rey Barrera [facility] 11-11-2022 17:00-0500 SaO2% (BldA) [Mass fraction] 97 % Rey Barrera [facility] 11-11-2022 17:00-0500 Systolic blood pressure 134 mm[Hg] Rey Barrera [facility] 11-11-2022 14:59-0500 Body temperature 98.06 [degF] Rey Barrera [facility] 11-11-2022 14:59-0500 Diastolic blood pressure 83 mm[Hg] Rey Barrera [facility] 11-11-2022 14:59-0500 Heart rate 102 /min Rey Barrera [facility] 11-11-2022 14:59-0500 Respiratory rate 16 /min Rey Barrera [facility] 11-11-2022 14:59-0500 SaO2% (BldA) [Mass fraction] 99 % Rey Barrera [facility] 11-11-2022 14:59-0500 Systolic blood pressure 129 mm[Hg] Rey Barrera [facility] 06-28-2022 17:23-0400 Body temperature 98.42 [degF] Luís Greenfield [facility] 06-28-2022 17:23-0400 Diastolic blood pressure 86 mm[Hg] Luís Greenfield [facility] 06-28-2022 17:23-0400 Heart rate 102 /min Luís Greenfield [facility] 06-28-2022 17:23-0400 Respiratory rate 14 /min Luís Greenfield [facility] 06-28-2022 17:23-0400 Systolic blood pressure 123 mm[Hg] Luís Greenfield [facility] Encounters Encounter Date Encounter Type Care Provider Facility Start: 10-28-2024 End: 10-28-2024 Emergency department patient visit Rey Barrera Facility:[facility] Start: 10-10-2024 End: 10-10-2024 Lab Drop off Yessy Guerrero [facility] Start: 10-10-2024 End: 10-10-2024 ambulatory Yessy Guerrero Facility: [place] Start: 10-10-2024 End: 10-10-2024 Patient encounter procedure Yessy Guerrero [facility] Start: 07-29-2024 End: 07-29-2024 Emergency department patient visit Jose Wilkinson [facility] Start: 07-11-2024 End: 07-11-2024 Telephone encounter 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 Comment on above: Appointment (Pre-pro cedure instructions.) Start: 07-04-2024 End: 07-04-2024 ambulatory Ole Escalante Facility:[facility] Start: 07-04-2024 End: 07-04-2024 Lab Drop off Ole Escalante [facility] Start: 06-28-2024 End: 06-28-2024 Emergency department patient visit Luís Greenfield [facility] Start: 06-11-2024 End: 06-11-2024 Emergency department patient visit Luís Gin Facility:[facility] Start: 05-29-2024 End: 05-29-2024 Emergency department patient visit Jose Wilkinson [facility] Start: 05-27-2024 End: 05-27-2024 ambulatory NATA MEDINA Facility:[facility] Start: 05-27-2024 End: 05-27-2024 Patient encounter procedure LOCATED WITHIN [facility] Start: 02-16-2024 Orders Only Abner Almazan MD Work Phone: Gastroenterology Comment on above: Generalized abdomina l pain (Primary Dx) Start: 02-13-2024 Telephone encounter Abner Gutierrez MD Work Phone: Gastroenterology Comment on above: Orders Start: 01-29-2024 ambulatory Luís Perla Facility:[facility] Start: 12-19-2023 End: 12-19-2023 ambulatory Luís Perla Facility:[facility] Start: 12-19-2023 End: 12-19-2023 Patient encounter procedure Luís Perla [facility] Start: 12-01-2023 End: 12-01-2023 ambulatory Luís Perla Facility:[facility] Start: 12-01-2023 End: 12-01-2023 Patient encounter procedure Luís Perla [facility] [place] Start: 10-23-2023 End: 10-23-2023 ambulatory JENN URBAN Facility:[facility] Start: 10-23-2023 End: 10-23-2023 Subsequent hospital visit by physician Gayle Arambula MD Work Phone: Gastroenterology Comment on above: Generalized abdomina l pain [R10.84] Start: 10-16-2023 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 Start: 10-02-2023 End: 10-02-2023 Patient encounter procedure Nathaniel Weeks [facility] Start: 09-20-2023 End: 09-20-2023 ambulatory JENN F URBAN Facility:[facility] Start: 09-11-2023 End: 09-11-2023 ambulatory JENN F URBAN Facility:[facility] Start: 08-22-2023 End: 08-22-2023 ambulatory JENN F URBAN Facility:[facility] Start: 08-11-2023 End: 08-11-2023 ambulatory JENN F URBAN Facility:[facility] Start: 08-01-2023 End: 08-01-2023 ambulatory PASTORA OH Facility:[facility] Start: 07-14-2023 End: 07-14-2023 Emergency department patient visit Jose Wilkinson [facility] Start: 06-22-2023 Telephone encounter Pastora Oh [...] department patient visit Desean Mayes [facility] Start: 03-19-2023 End: 03-19-2023 Emergency department patient visit Jose Wilkinson [facility] Start: 11-11-2022 End: 11-11-2022 Emergency department patient visit Desean Mayes [facility] Start: 11-11-2022 End: 11-11-2022 Emergency department patient visit Rey HernandezStormy Barrera [facility] Start: 10-05-2022 End: 10-05-[address] DOCTOR FUNG Facility:[facility] Start: 08-14-2022 End: 08-14-[address] MARTELL WEEKS Facility:[facility] Start: 08-08-2022 End: 08-08-[address] RIMA Burrows Facility:[facility] Start: 06-28-2022 End: 06-28-2022 Emergency department patient visit Luís Greenfield [facility] Procedures Date Procedure Procedure Detail Performing Clinician Start: 10-23-2023 Esophagoscp rig drew soral hypopharynx crv esoph Abner Almazan MD Work Phone: Start: 10-23-2023 Colonoscopy flx dx w /collj spec when pfrmd Abner Almazan MD Work Phone: Denies Luís Gin Plan of Treatment Date Care Activity Detail Author Start: 08-11-2026 Screening for malignant neoplasm of cervix [facility] Start: 05-04-2025 Urine microalbumin profile [facility] Start: 08-11-2024 GC (Gonorrhea) Screening (18-24) GC (Gonorrhea) Screening (18-24) [facility] Start: 08-11-2024 Screening for Chlamydia trachomatis Chlamydia Screening (18) [facility] Start: 07-18-2024 End: 07-18-2024 Patient encounter procedure 07/18/2024 7:30 AM EST Appointment Gastroenterology [address] [phone] Gayle Arambula MD [address] [phone] Generalized abdominal pain [R10.84] Gastroenterology Comment on above: Generalized abdominal pain [R10.84] Start: 05-05-2024 Covid-19 Vaccine ( season) Covid-19 Vaccine ( season) [facility] Start: 05-05-2024 Influenza vaccination [facility] Start: 09-04-2023 Behavioral Health Screening Behavioral Health Screening [facility] Start: 09-04-2023 Depression Assessment Depression Assessment [facility] Start: 05-05-2023 Covid-19 Vaccine ( season) Covid-19 Vaccine ( season) [facility] Start: 05-05-2023 Influenza vaccination Influenza Vaccine (#1) [facility] Start: 09-04-2022 Depression Assessment Depression Assessment [facility] Start: 2021 Urine microalbumin profile DTaP,Tdap,Td Vaccine (1 - Tdap) [facility] Start: 2020 Anxiety Screening Anxiety Screening [facility] Start: 2020 Chlamydia Screening (18-24) Chlamydia Screening (18-24) [facility] Start: 2020 Depression Screening Depression Screening [facility] Start: 2020 GC (Gonorrhea) Screening (18-24) GC (Gonorrhea) Screening (18-24) [facility] Start: 2020 Hepatitis C Screening Hepatitis C Screening [facility] Start: 2020 Hepatitis C screening Hepatitis C Screening [facility] Start: 2020 HIV Screening HIV Screening [facility] Start: 2020 HIV screening HIV Screening [facility] Start: 2018 Meningococcal B Vaccine: Consider Based On Risk (1 of 2 - Patient Seeks Protection) Meningococcal B Vaccine: Consider Based On Risk (1 of 2 - Patient Seeks Protection) [facility] Start: 2016 Peds To Adult Transition Annual Assessment Peds To Adult Transition Annual Assessment [facility] Start: 11-02-2015 HPV Vaccine (2 - 2-dose series) HPV Vaccine (2 - 2-dose series) [facility] Start: 2014 Peds To Adult Transition Initial Discussion Peds To Adult Transition Initial Discussion [facility] Start: 2011 HPV Vaccine (1 - 2-dose series) HPV Vaccine (1 - 2-dose series) [facility] Start: 2002 Covid-19 Vaccine (#1) Covid-19 Vaccine (#1) [facility] Start: 2002 Hepatitis B Vaccine (1 of 3 - 3-dose series) Hepatitis B Vaccine (1 of 3 - 3-dose series) [facility] End: 07-20-2024 Ct abdomen & pelvis w/contrast material CT ABD/PEL W IVCON Radiology Routine Infection in abdomen (HCC) 1 Occurrences starting 06/21/2023 until 07/20/2024 [facility] Work Phone: Comment on above: 1 Occurrences starting 06/21/2023 until 07/20/2024 End: 02-15-2025 Flexible sigmoidoscopy study COLONOSCOPY DIAGNOSTIC Endoscopy Routine Generalized abdominal pain 1 Occurrences starting 02/16/2024 until 02/15/2025 [facility] Work Phone: Comment on above: 1 Occurrences starting 02/16/2024 until 02/15/2025 SURGICAL PATHOLOGY [facility] Work Phone: Comment on above: Release Upon Ordering for 1 Occurrences starting 10/23/2023, 1 completed [facility] Immunizations Immunization Date Immunization Notes Care Provider [facility] 08-11-2023 HPV, unspecified formulation Armstrong Kayajeffry [facility] 08-11-2023 Human Papillomavirus 9-valent vaccine Juan Luis Oneil RN [facility] 06-22-2020 meningococcal ACWY vaccine, unspecified formulation Jose Minh [facility] 05-04-2015 HPV, unspecified formulation Jose Minh [facility] 05-04-2015 meningococcal ACWY vaccine, unspecified formulation Jose Minh [facility] 05-04-2015 tetanus toxoid, redu natalie diphtheria toxoid, and acellular pertussis vaccine, adsorbed Jose Minh [facility] 05-23-2008 diphtheria, tetanus toxoids and acellular pertussis vaccine, unspecified formulation Juan Luis Oneil RN [facility] 05-23-2008 DTaP, unspecified formulation Jose Minh [facility] 05-23-2008 Hep A, unspecified formulation Jose Minh [facility] 05-23-2008 hepatitis A vaccine, unspecified formulation Juan Luis Oneil RN [facility] 05-23-2008 measles, mumps and rubella virus vaccine Jose Minh [facility] 05-23-2008 poliovirus vaccine, unspecified formulation Jose Minh [facility] 05-23-2008 varicella virus vaccine Jose Minh [facility] 01-04-2006 diphtheria, tetanus toxoids and acellular pertussis vaccine, unspecified formulation Juan Luis Oneil RN [facility] 01-04-2006 DTaP, unspecified formulation Jose Minh [facility] 09-29-2004 DTaP-hepatitis B and poliovirus vaccine Jose Minh [facility] 09-29-2004 haemophilus influenz ae type b vaccine, conjugate unspecified formulation Juan Luis Oneil RN [facility] 09-29-2004 Hib, unspecified formulation Jose Minh [facility] 09-29-2004 measles, mumps and rubella virus vaccine Ojse Minh [facility] 09-29-2004 varicella virus vaccine Jose Minh [facility] 2002 diphtheria, tetanus toxoids and acellular pertussis vaccine, unspecified formulation Juan Luis Oneil RN [facility] 2002 DTaP, unspecified formulation Jose Minh [facility] 2002 haemophilus influenz ae type b vaccine, PRP-OMP conjugate Jose Minh [facility] 2002 poliovirus vaccine, unspecified formulation Jose Minh [facility] 2002 diphtheria, tetanus toxoids and acellular pertussis vaccine, unspecified formulation Juan Luis Oneil RN [facility] 2002 DTaP, unspecified formulation Jose Minh [facility] 2002 haemophilus influenz ae type b vaccine, PRP-OMP conjugate Jose Minh [facility] 2002 hepatitis B vaccine, pediatric or pediatric/adolescent dosage Jose Minh [facility] 2002 poliovirus vaccine, unspecified formulation Jose Minh [facility] 2002 hepatitis B vaccine, pediatric or pediatric/adolescent dosage Jose Minh [facility] NEGATED: Highlighted row has not occurred!10-10-2024 influenza virus vaccine, unspecified formulation Yessy Guerrero [facility] NEGATED: Highlighted row has not occurred!12-01-2023 influenza virus vaccine, unspecified formulation Luís Quentineric [facility] [place] Payers Date Payer Category Payer Medicaid [employer] [place] [id number] 2022-Present [phone] [address] [address] [place] [address] Medicaid [id number] 2002 Unknown [id number] 2002 Unknown [id number] 2002 Unknown [id number] [id number] 2002 Unknown [id number] [id number] 2002 Unknown [id number] [id number] 2002 Unknown [id number] [id number] 2002 Unknown [id number] [id number] 2002 Unknown [id number] [id number] 2002 Unknown [id number] [id number] 2002 Unknown [id number] [id number] 2002 Unknown [id number] [id number] 2002 Unknown [id number] [id number] 2002 Unknown [id number] [id number] 2002 Unknown [id number] [id number] 2002 Unknown [id number] [id number] 2002 Unknown [id number] [id number] 2002 Unknown [id number] [id number] 2002 Unknown [id number] 1959 Unknown [id number] Social History Date Type Detail Facility Start: 11-28-2018 End: 10-10-2024 Tobacco smoking status Never smoked tobacco (finding) [facility] Start: 01-07-2023 End: 08-22-2023 Sex Assigned At Female [facility] Tobacco smoking status NHIS Tobacco smoking consumption unknown [facility] Work Phone: Start: 01-07-2023 End: 08-22-2023 History of Social function [facility] National Score (1-100), lower number is lower risk [facility] Start: 2002 Sex Assigned At Not on file [facility] Start: 06-21-2023 Tobacco use and exposure Smokeless tobacco non-user [facility] Start: 06-22-2023 End: 10-23-2023 Alcohol intake Ex-drinker (finding) [facility] Functional Status Date Assessment Result Facility 10-28-2024 Functional Status N/A [facility] 10-10-2024 Functional Status N/A [facility] 07-29-2024 Functional Status N/A [facility] 06-28-2024 Functional Status N/A [facility] 06-11-2024 Functional Status N/A [facility] 05-29-2024 Functional Status N/A [facility] 05-27-2024 Functional Status N/A [facility] 07-14-2023 Functional Status N/A [facility] 04-12-2023 Functional Status N/A [facility] 03-19-2023 Functional Status N/A [facility] 11-11-2022 Functional Status N/A [facility] 11-11-2022 Functional Status N/A [facility] 06-28-2022 Functional Status N/A [facility] Clinical Notes 06-28-2022 to 10-28-2024 Note Date & Type Note Facility 10-28-2024 Evaluation + Plan note Diagnostic Tests PendingUrine Culture 10/28/24 [facility] 10-28-2024 Hospital Discharge instructions Patient Education 10/28/2024 09:31:17 Urinary Tract Infection, Adult Urinary Tract Infection, [...] Treatment for this condition includes: Antibiotic medicine. Aleq-ogg-odekahw medicines to treat discomfort. Drinking enough water [...] Follow these instructions at home: Medicines Take myzb-klp-dltdsbz and prescription medicines only as told by [...] provider. Document Revised: 03/28/2021 Document Reviewed: 04/02/2021 [employer] Patient Education 2023 [employer]. 10/28/2024 09:31:17 Kidney Stones Kidney Stones Kidney stones are solid, rock-like deposits that form inside of the kidneys. The kidneys are a pair of organs that make urine. A kidney stone may form in a kidney and move into other parts of the urinary tract, including the tubes that connect the kidneys to the bladder (ureters), the bladder, and the tube that carries urine out of the body (urethra). As the stone moves through these areas, it can cause intense pain and block the flow of urine. Kidney stones are created when high levels of certain minerals are found in the urine. The stones are usually passed out of the body through urination, but in some cases, medical treatment may be needed to remove them. What are the causes? Kidney stones may be caused by: A condition in which certain glands produce too much parathyroid hormone (primary hyperparathyroidism), which causes too much calcium buildup in the blood. A buildup of uric acid crystals in the bladder (hyperuricosuria). Uric acid is a chemical that the body produces when you eat certain foods. It usually leaves the body in the urine. Narrowing (stricture) of one or both of the ureters. A kidney blockage that is present at (congenital obstruction). Past surgery on the kidney or the ureters. What increases the risk? The following factors may make you more likely to develop this condition: Having had a kidney stone in the past. Having a family history of kidney stones. Not drinking enough water. Eating a diet that is high in protein, salt (sodium), or sugar. Being overweight or obese. What are the signs or symptoms? Symptoms of a kidney stone may include: Pain in the side of the abdomen, right below the ribs (flank pain). Pain usually spreads (radiates) to the groin. Needing to urinate often or urgently. Painful urination. Blood in the urine (hematuria). Nausea. Vomiting. Fever and chills. How is this diagnosed? This condition may be diagnosed based on: Your symptoms and medical history. A physical exam. Blood tests. Urine tests. These may be done before and after the stone passes out of your body through urination. Imaging tests, such as a CT scan, abdominal X-ray, or ultrasound. A procedure to examine the inside of the bladder (cystoscopy). How is this treated? Treatment for kidney stones depends on the size, location, and makeup of the stones. Kidney stones will often pass out of the body through urination. You may need to: Increase your fluid intake to help pass the stone. In some cases, you may be given fluids through an IV and may need to be monitored in the hospital. Take medicine for pain. Make changes in your diet to help prevent kidney stones from coming back. Sometimes, procedures are needed to remove a kidney stone. This may involve: A procedure to break up kidney stones using: ?A focused beam of light (laser therapy). ?Shock waves (extracorporeal shock wave lithotripsy). Surgery to remove kidney stones. This may be needed if you have severe pain or have stones that block your urinary tract. Follow these instructions at home: Medicines Take tbpy-int-jlirpmp and prescription medicines only as told by your health care provider. Ask your health care provider if the medicine prescribed to you requires you to avoid driving or using heavy machinery. Eating and drinking Drink enough fluid to keep your urine pale yellow. You may be instructed to drink at least 8 10 glasses of water each day. This will help you pass the kidney stone. If directed, change your diet. This may include: ?Limiting how much sodium you eat. ?Eating more fruits and vegetables. ?Limiting how much animal protein you eat. Animal proteins include red meat, poultry, fish, and eggs. ?Eating a normal amount of calcium (1,000 1,300 mg per day). Follow instructions from your health care provider about eating or drinking restrictions. General instructions Collect urine samples as told by your health care provider. You may need to collect a urine sample: ?24 hours after you pass the stone. ?8 12 weeks after you pass the kidney stone, and every 6 12 months after that. Strain your urine every time you urinate, for as long as directed. Use the strainer that your health care provider recommends. Do not throw out the kidney stone after passing it. Keep the stone so it can be tested by your health care provider. Testing the makeup of your kidney stone may help prevent you from getting kidney stones in the future. Keep all follow-up visits. You may need follow-up X-rays or ultrasounds to make sure that your stone has passed. How is this prevented? To prevent another kidney stone: Drink enough fluid to keep your urine pale yellow. This is the best way to prevent kidney stones. Eat a healthy diet. Follow recommendations from your health care provider about foods to avoid. Recommendations vary depending on the type of kidney stone that you have. You may be instructed to eat a low-protein diet. Maintain a healthy weight. Where to find more information National Kidney Foundation (NKF): www.kidney.org [facility] (UCF): www.urologyhealth.org Contact a health care provider if: You have pain that gets worse or does not get better with medicine. Get help right away if: You have a fever or chills. You develop severe pain. You develop new abdominal pain. You faint. You are unable to urinate. Summary Kidney stones are solid, rock-like deposits that form inside of the kidneys. Kidney stones can cause nausea, vomiting, blood in the urine, abdominal pain, and the urge to urinate often. Treatment for kidney stones depends on the size, location, and makeup of the stones. Kidney stones will often pass out of the body through urination. Kidney stones can be prevented by drinking enough fluids, eating a healthy diet, and maintaining a healthy weight. This information is not intended to replace advice given to you by your health care provider. Make sure you discuss any questions you have with your health care provider. Document Revised: 11/30/2022 Document Reviewed: 11/30/2022 [employer] Patient Education 2023 [employer]. Follow Up Care 10/28/2024 06:46:22 With:BRIDGET BENITO Address:Unknown When:10/31/2024 09:14:15 Comments:Please call urology office to set up close follow-up appointment. Take medications as directed. Strain all urine. Return to ED if symptoms worsen or new symptoms arise. With:Jenn Urban Address: [address] [place] [address]- Business (1) When:10/31/2024 09:14:15 [facility] 10-28-2024 Note ED Patient Education Note Obstetrics and [...] this condition includes: ??? Antibiotic medicine. ??? Ykyv-mwy-wdartvj medicines to treat discomfort. ??? Drinking enough [...] these instructions at home: Medicines ??? Take sevf-oey-ohvtwhz and prescription medicines only as told by [...] provider. Make rasheeda (more content not included)... [facility] 10-10-2024 Hospital Discharge instructions Patient Education 10/10/2024 14:41:48 Urinary Tract Infection, Adult Urinary Tract Infection, [...] Treatment for this condition includes: Antibiotic medicine. Jovh-bfy-ptdajcv medicines to treat discomfort. Drinking enough water [...] Follow these instructions at home: Medicines Take bahn-nda-apbcznw and prescription medicines only as told by [...] provider. Document Revised: 03/28/2021 Document Reviewed: 04/02/2021 [employer] Patient Education 2023 [employer]. 10/10/2024 14:41:37 Pyelonephritis, Adult Pyelonephritis, Adult Pyelonephritis is an infection that occurs in the kidney. The kidneys are the organs that filter the blood and move waste from the bloodstream to the urine. Urine passes out of the kidneys through tubes called ureters and goes into the bladder. There are two main types of this condition: Acute pyelonephritis. These are infections that come on quickly and without any warning. Chronic pyelonephritis. These infections last for a long time. In most cases, the infection clears up with treatment. In more severe cases, an infection can spread to the bloodstream or lead to other problems with the kidneys. What are the causes? This condition is often caused by bacteria. The bacteria may travel: From the bladder up to the kidney. This may happen after you have a bladder infection (cystitis) or urinary tract infection (UTI). From the bloodstream to the kidney. What increases the risk? You are more likely to develop this condition if: You are female. Your risk is even higher if you are . You are older. You have: ?Diabetes. ?Prostatitis. This is inflammation of the prostate gland. ?Kidney stones or bladder stones. ?Problems with your kidneys or ureters. ?Cancer. ?Spinal cord injury or nerve damage around the bladder. You have a soft tube (catheter) placed in your bladder. You are sexually active and use spermicides. You have or have had a UTI. What are the signs or symptoms? Symptoms of this condition include: An urge to urinate that is strong or does not go away. You may also urinate more often than normal. A burning or stinging feeling when you urinate. Pain. This may be in your abdomen, back, side, or groin. Fever or chills. Nausea or vomiting. Urine that is bloody, dark, cloudy, or smells bad. How is this diagnosed? This condition may be diagnosed based on your medical history and a physical exam. You may also have tests, such as: Urine tests. Blood tests. Imaging tests of the kidneys. These may include an ultrasound or CT scan. How is this treated? Treatment for this condition depends on the severity of the infection. If the infection is mild and found early, you may be given antibiotics to take by mouth. You will need to drink lots of fluids. If the infection is more severe, you may need to stay in the hospital and receive antibiotics through an IV. You may also get fluids through an IV. After you leave the hospital, you may need to take antibiotics by mouth. Other treatments may be needed. These will depend on the cause of the infection. Follow these instructions at home: Eating and drinking Drink enough fluid to keep your urine pale yellow. Avoid caffeine, tea, and carbonated drinks. These can irritate the bladder. General instructions Take zwaf-unz-xvnrxvf and prescription medicines as told by your health care provider. Finish your antibiotics even if you start to feel better. Urinate often. Avoid holding in urine for long periods of time. Urinate before and after sex. If you are female, cleanse from front to back after a bowel movement. Use each tissue only once. Keep all follow-up visits. Your health care provider will want to make sure your infection is gone. Contact a health care provider if: Your symptoms do not get better after 2 days of treatment. Your symptoms get worse. You have a fever or chills. You cannot take your antibiotics. Get help right away if: You vomit each time that you eat or drink. You have severe pain in your back or side. You are very weak, or you faint. This information is not intended to replace advice given to you by your health care provider. Make sure you discuss any questions you have with your health care provider. Document Revised: 03/13/2023 Document Reviewed: 03/13/2023 [employer] Patient Education 2023 [employer]. Follow Up Care 10/10/2024 11:53:54 With:JENN URBAN Address: When: Unknown [facility] 10-10-2024 Note Patient Education Nephrology Pyelonephritis, Adult Pyelonephritis is an infection that occurs in the kidney. The kidneys are the organs that filter the blood and move waste from the bloodstream to the urine. Urine passes out of the kidneys through tubes called ureters and goes into the bladder. There are two main types of this condition: ??? Acute pyelonephritis. These are infections that come on quickly and without any warning. ??? Chronic pyelonephritis. These infections last for a long time. In most cases, the infection clears up with treatment. In more severe cases, an infection can spread to the bloodstream or lead to other problems with the kidneys. What are the causes? This condition is often caused by bacteria. The bacteria may travel: ??? From the bladder up to the kidney. This may happen after you have a bladder infection (cystitis) or urinary tract infection (UTI). ??? From the bloodstream to the kidney. What increases the risk? You are more likely to develop this condition if: ??? You are female. Your risk is even higher if you are . ??? You are older. ??? You have: ? Diabetes. ? Prostatitis. This is inflammation of the prostate gland. ? Kidney stones or bladder stones. ? Problems with your kidneys or ureters. ? Cancer. ? Spinal cord injury or nerve damage around the bladder. ??? You have a soft tube (catheter) placed in your bladder. ??? You are sexually active and use spermicides. ??? You have or have had a UTI. What are the signs or symptoms? Symptoms of this condition include: ??? An urge to urinate that is strong or does not go away. You may also urinate more often than normal. ??? A burning or stinging feeling when you urinate. ??? Pain. This may be in your abdomen, back, side, or groin. ??? Fever or chills. ??? Nausea or vomiting. ??? Urine that is bloody, dark, cloudy, or smells bad. How is this diagnosed? This condition may be diagnosed based on your medical history and a physical exam. You may also have tests, such as: ??? Urine tests. ??? Blood tests. ??? Imaging tests of the kidneys. These may include an ultrasound or CT scan. How is this treated? Treatment for this condition depends on the severity of the infection. ??? If the infection is mild and found early, you may be given antibiotics to take by mouth. You will need to drink lots of fluids. ??? If the infection is more severe, you may need to stay in the hospital and receive antibiotics through an IV. You may also get fluids through an IV. After you leave the hospital, you may need to take antibiotics by mouth. Other treatments may be needed. These will depend on the cause of the infection. Follow these instructions at home: Eating and drinking ??? Drink enough fluid to keep your urine pale yellow. ??? Avoid caffeine, tea, and carbonated drinks. These can irritate the bladder. General instructions ??? Take jmxv-fie-kmpuwvx and prescription medicines as told by your health care provider. Finish your antibiotics even if you start to feel better. ??? Urinate often. Avoid holding in urine for long periods of time. ??? Urinate before and after sex. ??? If you are female, cleanse from front to back after a bowel movement. Use each tissue only once. ??? Keep all follow-up visits. Your health care provider will want to make sure your infection is gone. Contact a health care provider if: ??? Your symptoms do not get better after 2 days of treatment. ??? Your symptoms get worse. ??? You have a fever or chills. ??? You cannot take your antibiotics. Get help right away if: ??? You vomit each time that you eat or drink. ??? You have severe pain in your back or side. ??? You are very weak, or you faint. This information is not intended to replace advice given to you by your health care provider. Make sure you discuss any questions you have with your health care provider. Document Revised: 03/13/2023 Document Reviewed: 03/13/2023 [employer] Patient Education ? 2023 [employer]. Obstetrics and Gynecology Urinary Tract Infection, Adult [...] you: ? Use a spermicide or diaphragm f (more content not included)... [facility] 10-10-2024 Evaluation + Plan note Diagnostic Tests PendingUrine Culture 10/10/24 [facility] 07-29-2024 Evaluation + Plan note Extrac james from: Title:ED Note Author:Jose Wilkinson DO Date :07/29/24 Epigastric abdominal pain (R 10.13: Epigastric pain) Orders: Al hydroxide/Mg hydroxide/simethicone, 30 mL, Susp-Oral, Oral, Once, Stop date 07/29/24 6:09:00 EST, STAT, Start date 07/29/24 6:09:00 EST lidocaine topical, 200 mg, 10 mL, Soln-Oral, Oral, Once, Stop date 07/29/24 6:09:00 EST, STAT, Start date 07/29/24 6:09:00 EST ondansetron, 4 mg = 1 tab(s), Tab-Dis, Oral, Once, Stop date 07/29/24 6:09:00 EST, STAT, Start date 07/29/24 6:09:00 EST, 07/29/24 6:09:00 EST ondansetron, 4 mg = 1 tab(s), Oral, q8hr, PRN Nausea/Vomiting, # 16 tab(s), Refills(s) 0, [id number], 158, cm, 07/29/24 6:03:00 EST, Height/Length Dosing, 64.6, kg, 07/29/24 6:03:00 EST, Weight Dosing pantoprazole, 20 mg = 1 tab(s), Oral, Daily, X 14 day(s), # 14 tab(s), Refills(s) 0, [id number], 158, cm, 07/29/24 6:03:00 EST, Height/Length Dosing, 64.6, kg, 07/29/24 6:03:00 EST, Weight Dosing sucralfate, 1 gm = 1 tab(s), Oral, QID, X 10 day(s), # 40 tab(s), Refills(s) 0, [id number], 158, cm, 07/29/24 6:03:00 EST, Height/Length Dosing, 64.6, kg, 07/29/24 6:03:00 EST, Weight Dosing .UA With Cult Reflex Basic Metabolic Panel CBC w/ Auto Diff eGFR Extra Blue Tube Hepatic Function Panel Lipase Level U Beta Hcg Qual UA with Cult Rflx [facility] 11-25-2024 Hospital Discharge instructions Patient Education 07/29/2024 06:56:07 Abdominal Pain, Adult Abdominal Pain, Adult Pain in the abdomen (abdominal pain) can be caused by many things. In most cases, it gets better with no treatment or by being treated at home. But in some cases, it can be serious. Your health care provider will ask questions about your medical history and do a physical exam to try to figure out what is causing your pain. Follow these instructions at home: Medicines Take edzq-fri-vzzvqeg and prescription medicines only as told by your provider. Do not take medicines that help you poop (laxatives) unless told by your provider. General instructions Watch your condition for any changes. Drink enough fluid to keep your pee (urine) pale yellow. Contact a health care provider if: Your pain changes, gets worse, or lasts longer than expected. You have severe cramping or bloating in your abdomen, or you vomit. Your pain gets worse with meals, after eating, or with certain foods. You are constipated or have diarrhea for more than 2 3 days. You are not hungry, or you lose weight without trying. You have signs of dehydration. These may include: ?Dark pee, very little pee, or no pee. ?Cracked lips or dry mouth. ?Sleepiness or weakness. You have pain when you pee (urinate) or poop. Your abdominal pain wakes you up at night. You have blood in your pee. You have a fever. Get help right away if: You cannot stop vomiting. Your pain is only in one part of the abdomen. Pain on the right side could be caused by appendicitis. You have bloody or black poop (stool), or poop that looks like tar. You have trouble breathing. You have chest pain. These symptoms may be an emergency. Get help right away. Call 911. Do not wait to see if the symptoms will go away. Do not drive yourself to the hospital. This information is not intended to replace advice given to you by your health care provider. Make sure you discuss any questions you have with your health care provider. Document Revised: 06/07/2023 Document Reviewed: 06/07/2023 [employer] Patient Education 2023 [employer]. Follow Up Care 07/29/2024 05:52:33 With:Jenn Urban Address: [address] [place] [address]. [place] [address]- Business (1) When:Within 3 Day(s) [facility] 11-25-2024 NoteED Patient Education Note Gastroenterology Abdominal Pain, Adult Pain in the abdomen (abdominal pain) can be caused by many things. In most cases, it gets better with no treatment or by being treated at home. But in some cases, it can be serious. Your health care provider will ask questions about your medical history and do a physical exam to try to figure out what is causing your pain. Follow these instructions at home: Medicines ??? Take nxkt-vry-pawppnn and prescription medicines only as told by your provider. ??? Do not take medicines that help you poop (laxatives) unless told by your provider. General instructions ??? Watch your condition for any changes. ??? Drink enough fluid to keep your pee (urine) pale yellow. Contact a health care provider if: ??? Your pain changes, gets worse, or lasts longer than expected. ??? You have severe cramping or bloating in your abdomen, or you vomit. ??? Your pain gets worse with meals, after eating, or with certain foods. ??? You are constipated or have diarrhea for more than 2?3 days. ??? You are not hungry, or you lose weight without trying. ??? You have signs of dehydration. These may include: ? Dark pee, very little pee, or no pee. ? Cracked lips or dry mouth. ? Sleepiness or weakness. ??? You have pain when you pee (urinate) or poop. ??? Your abdominal pain wakes you up at night. ??? You have blood in your pee. ??? You have a fever. Get help right away if: ??? You cannot stop vomiting. ??? Your pain is only in one part of the abdomen. Pain on the right side could be caused by appendicitis. ??? You have bloody or black poop (stool), or poop that looks like tar. ??? You have trouble breathing. ??? You have chest pain. These symptoms may be an emergency. Get help right away. Call 911. ??? Do not wait to see if the symptoms will go away. ??? Do not drive yourself to the hospital. This information is not intended to replace advice given to you by your health care provider. Make sure you discuss any questions you have with your health care provider. Document Revised: 06/07/2023 Document Reviewed: 06/07/2023 [employer] Patient Education ? 2023 [employer] 07-11-2024 Telephone encounter Note* Telephone Encounter - Sarita Resendiz RN - 07/11/2024 12:25 PM EST GI Pre-Procedure Spoke with patient: Yes Confirmed date scheduled and patient report time: Yes Procedure Planned:Colonoscopy with or without biopsies based on clinical findings Is the patient on blood thinners?no Procedure Instructions given to patient: Yes, and they verbalized their understanding of instructions given Patient instructed to take prescribed preparation prior to procedure:Yes, and they verbalized theirunderstanding of instructions given Patient instructed to have family/friend present for procedure transport home:Patient/patient u.s. representative was told that if they do not have a responsible adult accompany them to their procedure; and remain in the endoscopy area until they are discharged; that their procedure cannot be done with s edation or anesthesia and may be cancelled. and They verbalized their understanding and agree to have a responsible adult accompany the patient to their procedure and remain in the endoscopy area. 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 Type of instruction given: Verbal by telephone contact. Sarita Resendiz RN [facility]11-07-2024 Miscellaneous Notes* Telephone Encounter - Sarita Resendiz RN - 07/11/2024 12:25 PM EST GI Pre-Procedure Spoke with patient: Yes Confirmed date scheduled and patient report time: Yes Procedure Planned:Colonoscopy with or without biopsies based on clinical findings Is the patient on blood thinners?no Procedure Instructions given to patient: Yes, and they verbalized their understanding of instructions given Patient instructed to take prescribed preparation prior to procedure:Yes, and they verbalized theirunderstanding of instructions given Patient instructed to have family/friend present for procedure transport home:Patient/patient u.s. representative was told that if they do not have a responsible adult accompany them to their procedure; and remain in the endoscopy area until they are discharged; that their procedure cannot be done with s edation or anesthesia and may be cancelled. and They verbalized their understanding and agree to have a responsible adult accompany the patient to their procedure and remain in the endoscopy area. 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 Type of instruction given: Verbal by telephone contact. Sarita Resendiz RN documented in [facility] Evaluation + Plan note Diagnostic Tests Pending * HSV Cult & Typing 07/04/24 [facility] 10-25-2024 Hospital Discharge instructions Patient Education 06/28/2024 17:23:50 Urinary Tract Infection, Adult Urinary Tract Infection, Adult A urinary tract infection (UTI) is an infection of any part of the urinary tract. The urinary tractincludes the kidneys, ureters, bladder, and urethra. These organs make, store, and get rid of urinein the body. An upper UTI affects the [...] Treatment for this condition includes: Antibiotic medicine. Zwlc-kig-plmzowx medicines to treat discomfort. Drinking enough water to stay hydrated. If you have frequent infections or have other conditions such as a kidney stone, you may need to see a health care provider who specializes in the urinary tract (urologist). In rare cases, urinary tract infections can cause sepsis. Sepsis is a life- threatening condition that occurs when the body responds to an infection. Sepsis is treated in the hospital with IV antibiotics, fluids, and other medicines. Follow these instructions at home: Medicines Take baln-mkk-edtswgc and prescription medicines only as told by your health care provider. If you were prescribed an antibiotic medicine, take it as told by your health care provider. Do notstop using the antibiotic even if you start [...] by your health care provider. Do notstop using the antibiotic even if you start to feel better. Keep all follow-up visits. This is important. This information is not intended to replace advice given to you by your health care provider. Make sure you discuss any questions you have with your health care provider. Document Revised: 03/28/2021 Document Reviewed: 04/02/2021 [employer] Patient Education 2023 [employer]. Follow Up Care 06/28/2024 14:47:32 With:Jenn Wilmar Address: [address] [place] [address]- Business (1) When:07/01/2024 16:50:51 [facility] 10-25-2024 NoteED Patient Education Note Obstetrics and Gynecology Urinary Tract Infection, Adult A urinary tract infection (UTI) is an infection of any part of the urinary tract. The urinary tractincludes the kidneys, ureters, bladder, and urethra. These organs make, store, and get rid of urinein the body. An upper UTI affects the [...] this condition includes: ??? Antibiotic medicine. ??? Ufff-sfv-sndgltn medicines to treat discomfort. ??? Drinking enough water to stay hydrated. If you have frequent infections or have other conditions such as a kidney stone, you may need to see a health care provider who specializes in the urinary tract (urologist). In rare cases, urinary tract infections can cause sepsis. Sepsis is a life- threatening condition that occurs when the body responds to an infection. Sepsis is treated in the hospital with IV antibiotics, fluids, and other medicines. Follow these instructions at home: Medicines ??? Take oemk-ema-fcmswbj and prescription medicines only as told by your health care provider. ??? If you were prescribed an antibiotic medicine, take it as told by your health care provider. Donot stop using the antibiotic even if you [...] as told by your health care provider. Donot stop using the antibiotic even if you start to feel better. ??? Keep all follow-up visits. This is important. This information is not intended to replace advice given to you by your health care provider. Make rasheeda (more content not included)...[facility]10[facility] Evaluation + Plan note Diagnostic Tests Pending * Chlam/GC/Trich,JERMAINE 06/28/24 * Urine Culture 06/28/24 [facility] [id number] Hospital Discharge instructions Patient Education 06/11/2024 12:23:12 Urinary Tract Infection, Adult Urinary Tract Infection, Adult A urinary tract infection (UTI) is an infection of any part of the urinary tract. The urinary tractincludes the kidneys, ureters, bladder, and urethra. These organs make, store, and get rid of urinein the body. An upper UTI affects the [...] Treatment for this condition includes: Antibiotic medicine. Pbbq-fqa-bfemdjk medicines to treat discomfort. Drinking enough water to stay hydrated. If you have frequent infections or have other conditions such as a kidney stone, you may need to see a health care provider who specializes in the urinary tract (urologist). In rare cases, urinary tract infections can cause sepsis. Sepsis is a life- threatening condition that occurs when the body responds to an infection. Sepsis is treated in the hospital with IV antibiotics, fluids, and other medicines. Follow these instructions at home: Medicines Take nimh-zzm-qrzxkzx and prescription medicines only as told by your health care provider. If you were prescribed an antibiotic medicine, take it as told by your health care provider. Do notstop using the antibiotic even if you start [...] by your health care provider. Do notstop using the antibiotic even if you start to feel better. Keep all follow-up visits. This is important. This information is not intended to replace advice given to you by your health care provider. Make sure you discuss any questions you have with your health care provider. Document Revised: 03/28/2021 Document Reviewed: 04/02/2021 [employer] Patient Education 2023 [employer]. 06/11/2024 12:23:12 Constipation, Adult Constipation, Adult Constipation is when a person has fewer than three bowel movements in a week, has difficulty havinga bowel movement, or has stools (feces) that are dry, hard, or larger than normal. Constipation maybe caused by an underlying condition. It may [...] as fried or sweet foods. These include indian fries, hamburgers, cookies, candies, and soda. Drink enough fluid to keep your urine pale yellow. General instructions Exercise regularly or as told by your health care provider. Try to do 150 minutes of moderate exercise each week. Use the bathroom when you have the urge to go. Do not hold it in. Take woym-kxz-inlihmq and prescription medicines only as told by [...] bowel movements in a week, has difficulty havinga bowel movement, or has stools (feces) that are dry, hard, or larger than normal. Eat foods that have a lot of fiber, such as beans, whole grains, and fresh fruits and vegetables. Drink enough fluid to keep your urine pale yellow. Take aeoj-mbg-eaxwslj and prescription medicines only as told by your health care provider. This includes any fiber supplements. This information is not intended to replace advice given to you by your health care provider. Make sure you discuss any questions you have with your health care provider. Document Revised: 07/05/2023 Document Reviewed: 07/05/2023 [employer] Patient Education 2023 [employer]. Follow Up Care 06/11/2024 10:36:26 With:Jenn Urban Address: [address] [place] [address]. [address] [place] [id number] Business (1) When:06/14/2024 12:17:21 [facility] 10-08-2024 Evaluation + Plan note Diagnostic Tests Pending * Urine Culture 06/11/24 [facility] 10-08-2024 NoteED Patient Education Note Gastroenterology Constipation, Adult Constipation is when a person has fewer than three bowel movements in a week, has difficulty havinga bowel movement, or has stools (feces) that are dry, hard, or larger than normal. Constipation maybe caused by an underlying condition. It may [...] as fried or sweet foods. These include indian fries, hamburgers, cookies, candies, and soda. ? Drink enough fluid to keep your urine pale yellow. General instructions ? Exercise regularly or as told by your health care provider. Try to do 150 minutes of moderate exercise each week. ? Use the bathroom when you have the urge to go. Do not hold it in. ? Take xyby-axq-iaiirrl and prescription medicines only as told by [...] keep your urine pale yellow. ? Take vgtl-qsh-bdhymzw and prescription medicines only as told by your health care provider. This includes any fiber supplements. This information is not intended to replace advice given to you by your health care provider. Make sure you discuss any questions you have with your health care provider. Document Revised: 07/05/2023 Document Reviewed: 07/05/2023 [employer] Patient Education ? 2023 [employer]. Obstetrics and Gynecology Urinary Tract Infection, Adult A urinary tract infection (UTI) is an infection of any part of the urinary tract. The urinary tractincludes the kidneys, ureters, bladder, and urethra. These organs make, store, and get rid of urinein the body. An upper UTI affects the [...] be confusion. In tanya (more content not included)...[facility]09-25-[facility] Evaluation + Plan note Extracted from: Title:ED Note Author:Minh Jose KOEHLERStormy Date :05/29/24 Otitis externa of both ears (H60.93: Unspecified otitis externa, bilateral) Orders: polymyxin B-trimethoprim ophthalmic, 4 drop(s), Soln-Opth, Ear-Both, Once, Stop date 05/29/24 2:41:00 EDT, STAT, Start date 05/29/24 2:41:00 EDT [facility] [id number] Hospital Discharge instructions Patient Education 05/29/2024 03:05:04 [...] if you start to feel better. Take jdae-hym-atxnzgf and prescription medicines only as told by [...] provider. Document Revised: 11/03/2021 Document Reviewed: 11/03/2021 [employer] Patient Education 2023 [employer]. Follow Up Care 05/29/2024 01:48:33 With:Jenn Urban Address: [address] [place] [address]. [address] [place], [place] [id number]- Business (1) When:Within 3 Day(s) [facility] 09-25-2024 NoteED Patient Education Note Infectious [...] you start to feel better. ? Take lhat-feo-ezdamoj and prescription medicines only as told by [...] provider. Document Revised: 11/03/2021 Document Reviewed: 11/03/2021 [employer] Patient Education ? 2023 [employer] VenitStormyC[facility] Hospital Discharge instructions Patient Education 05/27/2024 [...] Centers for Disease Control and Prevention: cdc.gov [place] [employer]: heart.org National Heart, Lung, and Blood [place]: nhlbi.nih.gov This information is not intended to replace advice given to you by your health care provider. Make sure you discuss any questions you have with your health care provider. Document Revised: 05/11/2023 Document Reviewed: 05/04/2023 [employer] Patient Education 2023 [employer] 05/27/2024 13:56:37 Otitis Media, Adult, Tsfe-nz-Whoj Otitis Media, Adult Otitis media is a [...] pain. Follow these instructions at home: Take rkyi-roa-vqkbbzz and prescription medicines only as told by [...] provider. Document Revised: 11/29/2021 Document Reviewed: 11/29/2021 [employer] Patient Education 2023 [employer]. 05/27/2024 13:56:30 Ear Drops, Adult, Iuod-si-Jzqr Ear Drops, Adult Your doctor has found [...] cannot use soap and water, use hand wool grower. 2.Make sure your ears are clean and [...] you cannotuse soap and water, use hand wool grower. Follow these instructions at home: Use the [...] provider. Document Revised: 01/24/2023 Document Reviewed: 01/02/2023 [employer] Patient Education 2023 [employer]. Follow Up Care 05/27/2024 12:39:57 With:Wilmar PIERCE, DIANA Alejandre Address:Unknown When: Unknown [facility] 09-23-2024 NotePatient Education Caregiving [...] cannot use soap and water, use hand wool grower. 2. Make sure your ears are clean [...] cannot use soap and water, use hand wool grower. Follow these instructions at home: ? Use [...] provider. Document Revised: 01/24/2023 Document Reviewed: 01/02/2023 [employer] Patient Education ? 2023 [employer]. ENT Otitis Media, Adult Otitis media is [...] these instructions at home: (more content not included)...[facility]06-14-[facility] Telephone encounter Note* Telephone Encounter - Ines Watts LPN - 02/16/2024 4:12 PM EDT Nurse called patient no answer message left to call office. Ines Watts LPN February 16, 2024 4:14 PM [facility]06-14-[facility]24 Miscellaneous Notes* Telephone Encounter - Ines [...] calling: self Call patient at: on cell [phone] (home) [phone] (cell) Was an appointment scheduled: No Closing statement: Symptom Call: Thank you for calling [facility], your call is very important. A nurse will call in approximately 2-4 hours during business hours. If this is an emergency, please contact 911. Mirna Melendez documented in this encounterC[facility]06-14-[facility]24 Instructions* Patient Instructions* Abner Almazan MD - 02/16/2024 2:47 PM EDT Images from the original note were not included. Bowel Preparation Instructions for: ARNULFO IF YOU DO NOT FOLLOW THESE DIRECTIONS, [...] If you do not have a responsible special needs bus driver (family member or friend) withyou to [...] nuts, salad/vegetables, or fresh and dried fruit. 08/2019 Bowel Preparation Instructions for: CLENPIQ One [...] your exam. 2 08/2019 documented in this encounterC[facility]06-11-2024 Telephone encounter Note * Telephone Encounter [...] Watts LPN February 13, 2024 9:34 AM [facility]06-11-2024 Telephone encounter Note* Telephone Encounter - [...] calling: self Call patient at: on cell [phone] (home) [phone] (cell) Was an appointment scheduled: No Closing statement: Symptom Call: Thank you for calling [facility], your call is very important. A nurse will call in approximately 2-4 hours during business hours. If this is an emergency, please contact 911. Mirna Melendez [facility]03-29-2024 Evaluation + Plan note Future Scheduled Tests Radiology* MRI Breast w/o and w/ Contrast, Bilat 12/01/23 [facility] General Surgery [place] [id number] Nurse Note* Gunjan Reid, RN - 10/23/2023 1:29 PM EST AMBULATORY [...] RN In Department: GASTROENTEROLOGY documented in this encounterCleveland [facility]02-19-2024 NoteQ3 Patient Name: Sherei Rizvi Procedure Date: 10/23/2023 12:17 PM Date of : 2000 Admit Type: Outpatient Age: 23 Gender: Female Note Status: Finalized Attending MD: Gayle Arambula MD, [id number] Procedure: Upper GI endoscopy Indications: Dysphagia Providers: [...] pathology results. Procedure Code(s): --- Professional --- 12213 Diagnosis Code(s): --- Professional --- R13.10 CPT copyright 2020 [employer]. All rights reserved. Attending Participation: I personally performed the entire procedure. Scope In: 12:35:35 PM Scope Out: 12:42:47 PM MD Gayle Sher MD 10/23/2023 12:56:10 PM This report has been signed electronically by Gayle Arambula MD Number of Addenda: 0 Note Initiated On: 10/23/2023 12:[address] [facility]02-12-2024 Miscellaneous Notes* Telephone Encounter - Juan Luis Oneil RN - 10/16/2023 12:10 PM EST Attempted to reach the patient at the contact number that they provided [phone] (home) . Unable to speak with patient so without identifying the patient the following information was left on their voice mail: Date of procedure, location and report time Prep instructions A message was left informing the patient/patient u.s. representative they must have a responsible adult accompany [...] Number to call with questions or concerns [phone] Number to call to cancel their procedure [phone] Juan Luis Oneil RN documented in this encounterC[facility]01-[facility]-2024 NoteHNO ID: [id number] Author: ABNER ALMAZAN MD Service: ? Author Type: Physician Type: Progress Notes Filed: 09/11/2023 12:06 Note Text: NAME: Sherie Rizvi New Patient Zoom Visit AGE: [age] year old I have communicated my name and active licensure. The patient's identity and physical location were verified at the time of this visit. Either the patient or their legal u.s. representative has been informed of the risks and benefits of -- and alternatives to -- treatment through a remote evaluation and consents to proceed with the evaluation remotely. Referred by: Levi Johnson MD [id number] [facility] [id number] Referred for: an opinion regarding abdominal pain, [...] Past Histories independently gathered by the clinical legal support analyst and the remaining scribed note accurately describes [...] pancreatic disease. BM frequen (more content not included)...[facility]12-19-2023 NoteHNO ID: [id number] Author: Levi Johnson MD Service: ? Author [...] physician/QHCP Medical Decision Making Level: 4 - ModerateMer[facility]12-08-2023 NoteHNO ID: [id number] Author: Leonie Tiwari MD Service: ? Author [...] OB History No obstetric history on file. Manager Language History LMP: Drug Induced Amenorrhea Age at Menarche: Age at First : Age at Menopause: Manager Language History Comments: Sexual Activity: No sexual activity [...] external genitalia normal, normal Bartholin's glands, urethra, Stonega's glands, no vulvar lesions, no cervical lesions, [...] education, counselling and medical decision making. Leonie Tiwari, [facility]11-28-2023 NoteHNO ID: [id number] Author: Pastora Oh MD Service: ? Author Type: Physician Type: Progress Notes Filed: 08/01/2023 2:01 PM Note Text: VIRTUAL VISIT PROGRESS NOTE This is a virtual visit using [employer] Zoom Video Visit. It required patient-provider interaction for the medical decision making as documented below. I have communicated my name and active licensure. The patient's identity and physical location were verified at the time of this visit. Either the patient or their legal u.s. representative has been informed of the risks and [...] She can reach out to me through [employer] if she has further questions or concerns. She is comfortable with this plan. There are no Patient Instructions on file for this visit. I spent a total of 15 minutes on the date of the service which included preparing to see the patient, xpjm-hd-lrbr patient care, and completing clinical documentation Pastora Oh, [facility]11-10-2023 Evaluation + Plan note Extracted from: Title:ED Note Author:Jose Wilkinson DO Date :07/14/23 Acute COVID-19 (U07.1: COVID -19) Orders: acetaminophen, 650 mg = 2 tab(s), Tab, Oral, Once, Stop date 07/14/23 5:35:00 EST, STAT, Start date 07/14/23 5:35:00 EST, 07/14/23 5:35:00 EST ondansetron, 4 mg = 1 tab(s), Oral, q8hr, PRN Nausea/Vomiting, # 20 tab(s), Refills(s) 0, Pharmacy: [facility]/pharmacy #[id number], 158, cm, 01/23/23 22:00:00 EDT, Height/Length Dosing, 57, kg, 01/23/23 22:00:00 EDT, Weight Dosing penicillin V potassium, 500 mg = 1 tab(s), Oral, q6hr, # 40 tab(s), Refills(s) 0, Pharmacy: [facility]/pharmacy #[id number], 157.5, cm, 09/29/21 1:19:00 EST, Height/Length Dosing, 56.1, kg, 09/29/21 1:19:00 EST, Weight Dosing Extra Green Li Tube Extra Lav Tube Influenza A&B Ag Mononucleosis Screen Rapid COVID Antigen ([facility]) Future Appointments Appointment Date:07/17/2023 07:00:00 AM Scheduled Provider: Location:.[facility] Appointment Type:CT Abdomen/Pelvis Combo (FT) Future Scheduled Tests Radiology* CT Abdomen/Pelvis w/ Contrast 07/17/23 [facility]11-10-2023 Hospital Discharge instructions Patient Education 07/14/2023 [...] managed at home with rest, fluids, and dcnx-crp-zzcokju medicines. Serious symptoms may be treated in [...] 3-dose primary series. ?If you get the J&J/Kandace vaccine, you will need a 2-dose primary [...] water are not available, use alcohol-based hand wool grower. Make sure that all people in your [...] managed at home with rest, fluids, and bxni-izg-eahuiky medicines. This information is not intended to replace advice given to you by your health care provider. Make sure you discuss any questions you have with your health care provider. Document Revised: 08/11/2022 Document Reviewed: 08/11/2022 [employer] Patient Education 2022 [employer]. Follow Up Care 07/14/2023 05:18:44 With:Jenn Urban Address: [address] [place] [address]. [address] [place] [address]- Business (1) When:Within 3 Day(s) [facility]10-19-2023 Miscellaneous Notes* Telephone Encounter - Jonna [...] may have the CT done at a [facility] facility. No further questions at this time. [...] more information on her Mychart records from [facility] in [place]. She said she had a CT done in January 24 in 2022 done with IV contrast. She states that she had small non specific retroperitoneal/mesenteric lymph nodes noted at that time. She states that she did not know that this was found last January. She is wanted to let Dr Oh know and wondered if this would change her plan of care. Sherie says she is very worried about this [...] a call back for any further recommendation. [phone] (cell) documented in this encounterC[facility]10-[facility] History of Present illness Narrative* Pastora [...] Visit on 06/21/23 CT ABD/PEL W IVCON REINIERS 145 mcg capsule loratadine (CLARITIN) 10 mg [...] nodes. Pastora Oh MD documented in this encounterC[facility]10-18-2023 Instructions* Patient Instructions* Pastora Oh MD - 06/21/2023 2:27 PM EDT Obtain the CT scan on or after 07/13. We will set up a Virtual Visit or Telephone follow up. documented in this encounterC[facility]10-16-2023 History of Present illness Narrative* Analilia Bowman APRN.ANNE - 06/19/2023 11:00 AM EDT Scheduling: Clinical [...] discussing with patient and chart review, the patient/pharmacy analyst were instructed to schedule with General Surgery Appointment was scheduled with Dr. Adriano Bowman APRN.CNP June 19, 2023 11:00 AM documented in this encounterCleveland Clinic [facility]08-09-2023 Evaluation + Plan note Extracted from: Title:ED Note Author:Desean Mayes DO Date :04/12/23 Renal colic on right side (N 23: Unspecified renal colic) Orders: acetaminophen-hydrocodone, 1 EA, Tab, Oral, Once, Stop date 04/12/23 3:26:00 EDT, STAT, Start date 04/12/23 3:26:00 EDT acetaminophen-hydrocodone, 1 tab(s), Oral, q6hr for pain for 3 day(s), 10 tab(s), Refill(s) 0, [facility]/pharmacy #[id number], 157.4, cm, 04/12/23 2:00:00 EDT, Height/Length Dosing, 56, kg, 04/12/23 2:00:00 EDT, Weight Dosing ondansetron, 4 mg = 1 tab(s), Oral, q8hr, # 12 tab(s), Refills(s) 0, Pharmacy: [facility]/pharmacy #[id number], 157.4, cm, 04/12/23 2:00:00 EDT, Height/Length Dosing, 56, kg, 04/12/23 2:00:00 EDT, Weight Dosing orphenadrine, 60 mg = 2 mL, Injection, IV Push, Once, Stop date 04/12/23 2:05:00 EDT, STAT, Start date 04/12/23 2:05:00 EDT, 04/12/23 2:05:00 EDT tamsulosin, 0.4 mg = 1 cap(s), Oral, Daily, # 10 cap(s), Refills(s) 0, Pharmacy: [facility]/pharmacy #[id number], 157.4, cm, 04/12/23 2:00:00 EDT, Height/Length Dosing, 56, kg, 04/12/23 2:00:00 EDT, Weight Dosing Automated Diff Basic Metabolic Panel CBC w/ Auto Diff CT Abdomen/Pelvis w/o Contrast eGFR U Beta Hcg Qual UA With Cult Reflex [facility]08-09-2023 Hospital Discharge instructions Patient Education 04/12/2023 04:17:58 Renal Colic, Iqeo-ns-Otag Renal Colic Renal colic is pain that is caused by a kidney stone. The pain can be sharp and very bad. It may befelt in the back, belly, side (flank), or groin. It can cause nausea. Renal colic can come and go. Follow these instructions at home: Medicines Take zzze-mqb-rqzenqi and prescription medicines only as told by [...] is caused by a kidney stone. Take eajp-jcn-egiicab and prescription medicines only as told by [...] provider. Document Revised: 04/25/2022 Document Reviewed: 04/25/2022 [employer] Patient Education 2022 [employer]. Follow Up Care 04/12/2023 01:50:41 With:Ky CONNELLY Address: [facility] [address] [place] [address]- Business (1) When:04/15/2023 Comments:Take the Flomax once daily until you have completed the course. You can use the pain medication, nausea medication as prescribed as needed for pain. Please follow-up with your primary care doctor in addition to urology for further evaluation and management. Please return to the ED for any new or wor sening symptoms or With:Jenn Urban Address: [address] [place] [address]. [address] [place] [address]- Business (1) When:04/15/2023 [facility]07-16-2023 Evaluation + Plan noteExtracted from: Title:ED [...] Insert UA With Cult Reflex [facility]07-16-2023 Hospital Discharge instructions Patient Education 03/19/2023 [...] medicines. These include steroids, antibiotics, and some dqpq-dab-pyspqvf medicines, such as aspirin or ibuprofen. Having [...] Follow these instructions at home: Medicines Take lggq-wzz-adaxmjg and prescription medicines only as told by [...] your local emergency services (911 in the .[place] Do not drive yourself to the hospital. [...] provider. Document Revised: 12/25/2021 Document Reviewed: 12/25/2021 [employer] Patient Education 2022 [employer]. Follow Up Care 03/19/2023 06:39:46 With:Jenn Urban Address: [address] [place] [address]. [place] [id number] [facility] (1) When:03/22/2023 08:34:35 Comments:Call the office of [...] any new or worsening symptoms. [facility]03-11-2023 Hospital Discharge instructions Patient Education 11/11/2022 22:54:11 Constipation, Adult, Zxwc-wn-Uvwg Constipation, Adult Constipation is when a person: [...] in fiber, or overly processed, such as: ?Romanian fries. ?Hamburgers. ?Cookies. ?Candy. ?Soda. Drink enough fluid to keep your pee (urine) clear or pale yellow. General instructions Exercise regularly or as told by your doctor. Go to the restroom when you feel like you need to poop. Do not hold it in. Take wlfn-rll-qomshvb and prescription medicines only as told by [...] 02/06/2009 Document Revised: 08/03/2018 Document Reviewed: 02/08/2017 [employer] Patient Education 2020 [employer]. Follow Up Care 11/11/2022 20:55:30 With:Jenn Urban Address: [address] [place], [place] [address]. [address] [place] [address]- Business (1) When:11/14/2022 Comments:Follow-up with your primary care provider in 3 to 5 days. If symptoms worsen, do not improve, or new symptoms arise please report back to emergency department for further evaluation. [facility]03-10-2023 Hospital Discharge instructions Patient Education 11/11/2022 17:32:24 Kidney Stones, Hufe-ov-Gwwx Kidney Stones Kidney stones are rock-like masses [...] Follow these instructions at home: Medicines Take udqm-xcp-xpntpxh and prescription medicines only as told by [...] 02/06/2009 Document Revised: 01/07/2020 Document Reviewed: 01/07/2020 [employer] Patient Education 2020 [employer]. 11/11/2022 17:32:24 Constipation, Adult, Ehoq-bg-Rybo Constipation, Adult Constipation is when a person: [...] in fiber, or overly processed, such as: ?Romanian fries. ?Hamburgers. ?Cookies. ?Candy. ?Soda. Drink enough fluid to keep your pee (urine) clear or pale yellow. General instructions Exercise regularly or as told by your doctor. Go to the restroom when you feel like you need to poop. Do not hold it in. Take iolu-anx-qquwzjq and prescription medicines only as told by [...] 02/06/2009 Document Revised: 08/03/2018 Document Reviewed: 02/08/2017 [employer] Patient Education 2020 [employer]. Follow Up Care 11/11/2022 14:54:15 With:Jenn Urban Address: [address]. [address] [place] [address]- Business (1) When:11/14/2022 17:11:36 Comments:Follow-up with your primary care provider in 3 to 5 days. If symptoms worsen, do not improve, or new symptoms arise please report back to emergency department for further evaluation. [facility]03-10-2023 Evaluation + Plan noteExtracted from: Title:ED Note Author:Jono Pennington PA-C te:11/11/22 Abdominal pain (R10.9: Unspe cified abdominal pain) Constipation (K59.00: Constipation, unspecified) Orders: dicyclomine, 10 mg = 1 cap(s), Oral, QID, X 7 day(s), # 28 cap(s), Refills(s) 0, Pharmacy: [facility]/pharmacy #[id number], 158, cm, 11/11/22 15:01:00 EST, Height/Length Dosing, 57, kg, 11/11/22 15:01:00 EST, Weight Dosing magnesium citrate, 8.725 gm, 150 mL, Oral, Once, 300 mL, Refill(s) 0, [id number], 158, cm, 11/11/22 15:01:00 EST, Height/Length Dosing, 57, kg, 11/11/22 15:01:00 EST, Weight Dosing mineral oil, 133 mL, Rectal, Once for constipation, 133 mL, Refill(s) 0, [id number], 158, cm, 11/11/22 15:01:00 EST, Height/Length Dosing, 57, kg, 11/11/22 15:01:00 EST, Weight Dosing polyethylene glycol 3350, 17 gram, Oral, Daily, dissolve in water before taking, # 527 gram, Refills(s) 0, Pharmacy: [facility]/pharmacy #[id number], 158, cm, 11/11/22 15:01:00 EST, Height/Length Dosing, 57, kg, 11/11/22 15:01:00 EST, Weight Dosing U Beta Hcg Qual UA With Cult Reflex Urine Culture XR Abdomen 1 View Diagnostic Tests Pending * Urine Culture 11/11/22 [facility]03-10-2023 Evaluation + Plan noteExtracted from: Title:ED Note Author:Gorge MAXWELL, Joon Dang te:11/11/22 Constipation (K59.00: Consti pation, unspecified) Nausea (R11.0: Nausea) Orders: dicyclomine, 20 mg = 2 mL, Injection, IntraMuscular, Once, Stop date 11/11/22 21:57:00 EST, STAT, Start date 11/11/22 21:57:00 EST, 11/11/22 21:57:00 EST dicyclomine, 10 mg = 1 cap(s), Oral, QID, X 7 day(s), # 28 cap(s), Refills(s) 0, Pharmacy: [facility]/pharmacy #[id number], 158, cm, 11/11/22 15:01:00 EST, Height/Length [...] Once for constipation, 133 mL, Refill(s) 0, [id number], 158, cm, 11/11/22 15:01:00 EST, Height/Length Dosing, 57, kg, 11/11/22 15:01:00 EST, Weight Dosing ondansetron, 4 mg = 1 tab(s), Tab-Dis, Oral, Once, Stop date 11/11/22 21:07:00 EST, STAT, Start date 11/11/22 21:07:00 EST, 11/11/22 21:07:00 EST polyethylene glycol 3350, 17 gram, Oral, Daily, dissolve in water before taking, # 527 gram, Refills(s) 0, Pharmacy: [facility]/pharmacy #[id number], 158, cm, 11/11/22 15:01:00 EST, Height/Length Dosing, 57, kg, 11/11/22 15:01:00 EST, Weight Dosing U Beta Hcg Qual UA With Cult Reflex Urine Culture XR Abdomen 1 View [facility]10-25-2022 Hospital Discharge instructions Patient Education 06/28/2022 [...] Follow these instructions at home: Medicines Take bjwh-nmm-yozuaak and prescription medicines only as told by [...] of a condition that needs treatment. Take kqis-sll-weotxpb and prescription medicines only as told by [...] 02/17/2012 Document Revised: 09/09/2019 Document Reviewed: 09/09/2019 [employer] Patient Education 2020 [employer]. 06/28/2022 19:00:07 Upper Respiratory Infection, Adult Upper [...] medicines to help relieve symptoms, such as: Urrm-slg-hoayrcz cold medicines. Cough suppressants. Coughing is a [...] and other clear broths. General instructions Take pgln-uoy-syxbkqf and prescription medicines only as told by [...] and water are not available, use hand wool grower. ?Avoid touching your mouth, face, eyes, or [...] 2002 Document Revised: 08/29/2019 Document Reviewed: 04/06/2018 [employer] Patient Education Ecelles Carson Follow Up Care 06/28/2022 17:22:04 With:Jenn Meltonson Address: [address] [place] [address]. [address] [place] [phone]- Business (1) When:07/01/2022 18:46:11 [facility]10-25-2022 Evaluation + Plan note Diagnostic Tests Pending * Group A Strep by PCR [facility] Diagnosis Abnormal CT of the abdomen- Primary Nonspecific (abnormal) findings on radiological and other examination of abdominal area, including retroperitoneum Infection in abdomen (HCC) Unspecified peritonitis documented in this encounter [facility] Diagnosis Generalized abdominal pain Abdominal pain, generalized Other constipation Mesenteric panniculitis (HCC) Sclerosing mesenteritis Esophageal dysphagia Dysphagia, pharyngoesophageal phase documented in this encounter [facility]* Diagnosis Generalized abdominal pain- Primary Abdominal pain, generalized [facility] Narrative No data available for this section [facility] No data available for this section [facility] note No data available for this section [facility])* Outpatient Procedure (Routine) - Closed Specialty Diagnoses / Procedures Referred By Stephen t Referred To Contact [facility] Diagnoses Esophageal dysphagia Procedures EGD - THERAPEUTIC, EUS, OR TUBE INTERVENTIONS EGD BALLOON DILATION ESOPHAGUS <30 MM DIAM Abner Almazan MD [facility] [address] [place] [address] [address] Referral ID Status Reason Start Date Expiration Date V isits Requested Visits Authorized [id number] Closed Auto-Generate d Referral 09/11/2023 09/11/2024 1 1 * Outpatient Procedure (Routine) - Closed Specialty Diagnoses / Procedures Referred By Contac t Referred To Contact [facility] Diagnoses Generalized abdominal pain Other constipation Mesenteric panniculitis (HCC) Procedures COLONOSCOPY DIAGNOSTIC COLONOSCOPY FLX DX W/COLLJ SPEC WHEN Abner De La Torre MD [facility] [employer] [address] [place] [address] [address] Referral ID Status Reason Start Date Expiration Date V isits Requested Visits Authorized [id number] Closed Auto-Generate d Referral 09/11/2023 09/11/2024 1 1 [facility] for referral (narrative)* Outpatient Procedure (Routine) - Pending Review Specialty Diagnoses / Procedures Referred By Contac t Referred To Contact [facility] Diagnoses Generalized abdominal pain Procedures COLONOSCOPY DIAGNOSTIC COLONOSCOPY FLX DX W/COLLJ SPEC WHEN Abner De La Torre MD [employer] [address] [place], [place] [id number] [place] [id number] Referral ID Status Reason Start Date Expiration Date Visits Requested Visits Authorized [id number] Pending Review Auto-Generat ed Referral 02/16/2024 02/15/2025 1 1 [facility] for visit Narrative* Outpatient Procedure (Routine) - Closed Specialty Diagnoses / Procedures Referred By Contac t Referred To Contact [facility] Diagnoses Esophageal dysphagia Procedures EGD - THERAPEUTIC, EUS, OR TUBE INTERVENTIONS EGD BALLOON DILATION ESOPHAGUS <30 MM DIAM Abner Almazan MD [employer] [address] [place] [address] [facility] [place] [place] [address] [place] [address] Referral ID Status Reason Start Date Expiration Date V isits Requested Visits Authorized [id number] Closed Auto-Generate d Referral 09/11/2023 09/11/2024 1 1 [facility] Summary Purpose Family History No Family [...] Records FoundNo Advanced Directives Records FoundNo Advanced Directiv es Records FoundNo Advanced Directives Records FoundNo Advanced Directives Records FoundNo AdvancedDirectives Records Found Reason for Referral Specialty Diagnoses / Procedures Referred By Stephen t Referred To Contact [facility] Diagnoses Infection in abdomen (HCC) Procedures CT ABD/PEL W IVCON CT ABD & PELVIS W/CONTRAST Pastora Oh MD [address] [address] [place] [address] Referral ID Status Reason Start Date Expiration Date Visits Requested Visits Authorized [id number] Pending Review Auto-Generat ed Referral 3 07/20/2024 1 1 Additional Source Comments Patient Care team informatio n (unrecognized section and content) 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 Specialty Start Date End Date Jenn Urban MD [address] [place] [phone] PCP - General Family Medicine 08/03/23 Jenn Urban MD [address] [phone] Referring Family Medicine 08/12/23 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 Specialty Start Date End Date Jenn Urban MD [address] [address] PCP - General Family Medicine 08/03/23 Jenn Urban MD [address] [phone] Referring Family Medicine 08/12/23 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 Specialty Start Date End Date Jenn Urban MD [address] [phone] PCP - General Family Medicine 08/03/23 Jenn Urban MD [address] [place] [address] [place] [phone] Referring Family Medicine 08/12/23 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 Specialty Start Date End Date Jenn Urban MD [address] [place] [address] PCP - General Family Medicine 08/03/23 Jenn Urban MD [address] [phone] Referring Family Medicine 08/12/23 INFORMATION SOURCE (unrecogn ized section and content) DATE CREATED AUTHOR 11/19/2022 [facility] DATE CREATED AUTHOR AUTHOR'S ORGANIZ ATION 06/13/2024 [facility] DATE CREATED AUTHOR AUTHOR'S ORGANIZ ATION 06/30/2024 [facility] DATE CREATED AUTHOR AUTHOR'S ORGANIZ ATION 07/01/2024 [facility] DATE CREATED AUTHOR AUTHOR'S ORGANIZ ATION 07/06/2024 [facility] DATE CREATED AUTHOR AUTHOR'S ORGANIZ ATION 07/10/2024 [facility] DATE CREATED AUTHOR AUTHOR'S ORGANIZ ATION 07/13/2024 [facility] DATE CREATED AUTHOR AUTHOR'S ORGANIZ ATION 07/30/2024 [facility] DATE CREATED AUTHOR AUTHOR'S ORGANIZ ATION 07/31/2024 [facility] DATE CREATED AUTHOR AUTHOR'S ORGANIZ ATION 10/12/2024 [facility] DATE CREATED AUTHOR AUTHOR'S ORGANIZ ATION 10/13/2024 [facility] DATE CREATED AUTHOR AUTHOR'S ORGANIZ ATION 10/14/2024 [facility] DATE CREATED AUTHOR AUTHOR'S ORGANIZ ATION 10/18/2024 [facility] DATE CREATED AUTHOR AUTHOR'S ORGANIZ ATION 10/28/2024 [facility] DATE CREATED AUTHOR AUTHOR'S ORGANIZ ATION 10/29/2024 [facility] DATE CREATED AUTHOR AUTHOR'S ORGANIZ ATION 10/31/2024 [facility] DATE CREATED AUTHOR AUTHOR'S ORGANIZ ATION 11/01/2024 [facility] Source Comments (unrecognize d section and content) In the event this informatio n is protected by the Federal Confidentiality of Alcohol and Drug Abuse Patient Records regulations: The Federal rules restrict any use of the information to criminally investigate or prosecute any alcohol or drug abuse patient.[facility] the event this information is protected by the Federal Confidentiality of Alcohol and Drug Abuse Patient Records regulations: The Federal rules restrict any use of the information to criminally investigate or prosecute any alcohol or drug abuse patient.[facility] the event this information is protected by the Federal Confidentiality of Alcohol and Drug Abuse Patient Records regulations: The Federal rules restrict any use of the information to criminally investigate or prosecute any alcohol or drug abuse patient.[facility] the event this information is protected by the Federal Confidentiality of Alcohol and Drug Abuse Patient Records regulations: The Federal rules restrict any use of the information to criminally investigate or prosecute any alcohol or drug abuse patient.[facility] the event this information is protected by the Federal Confidentiality of Alcohol and Drug Abuse Patient Records regulations: The Federal rules restrict any use of the information to criminally investigate or prosecute any alcohol or drug abuse patient.[facility] the event this information is protected by the Federal Confidentiality of Alcohol and Drug Abuse Patient Records regulations: The Federal rules restrict any use of the information to criminally investigate or prosecute any alcohol or drug abuse patient.[facility] the event this information is protected by the Federal Confidentiality of Alcohol and Drug Abuse Patient Records regulations: The Federal rules restrict any use of the information to criminally investigate or prosecute any alcohol or drug abuse patient.[facility] the event this information is protected by the Federal Confidentiality of Alcohol and Drug Abuse Patient Records regulations: The Federal rules restrict any use of the information to criminally investigate or prosecute any alcohol or drug abuse patient.[facility] Reason for Visit (unrecogniz ed section [...] BE BASED ON THE PRIMARY CLINICAL RECORDS. [employer] provides no warranty or guarantee of the accuracy or completeness of information in this document.
--- NOTE | 2024-11-20 22:56 | ED_ITS ---
HPI HPI - General Adult General Chief complaint: Back Pain/Injury Stated complaint: KIDNEY STONES Time Seen by Provider: 11/20/24 22:44 Source: patient Mode of arrival: walk-in Limitations: no limitations History of Present Illness HPI narrative: 24-year-old female presents for right flank pain. It started about 2 hours ago and she was not doing anything in particular. There is no injury. She has had kidney stones before and it feels similar. No gross hematuria or fever. She has been nauseous but not vomiting. Related Data Previous Rx's ?Medication ?Instructions ?Recorded hydrocodone 5 mg-acetaminophen 325 1 tab PO Q6H PRN pain 3 days #12 07/01/24 mg tablet tabs ketorolac 10 mg tablet 10 mg PO TID PRN pain #10 tabs 07/01/24 lidocaine 5 % topical cream 1 applic topical QID PRN pain #30 07/01/24 grams ondansetron 4 mg disintegrating 4 mg PO Q6H PRN nausea and 07/01/24 tablet vomiting #12 tabs polyethylene glycol 3350 17 17 g PO DAILY #238 grams 07/01/24 gram/dose oral powder (Miralax) prednisone 10 mg tablet See Rx Instructions .Route 07/13/24 .COMPLEX #30 tabs ondansetron 4 mg disintegrating 4 mg PO Q6H PRN nausea and 11/21/24 tablet vomiting #20 tabs oxycodone-acetaminophen 5 mg-325 1 tab PO Q6H PRN pain 5 days #20 11/21/24 mg tablet (Percocet) tabs tamsulosin 0.4 mg capsule (Flomax) 0.4 mg PO DAILY #7 caps 11/21/24 Allergies Allergy/AdvReac Type Severity Reaction Status Date / Time No Known Drug Allergies Allergy Verified 11/20/24 22:55 Opioid HPI Opioid Management Most Recent Opioid Data: Last Pain Scale 9 11/20/24 23:13 11/20/24 Last ED Pain Assessment 11/20/24 22:49 Review of Systems ROS Narrative A ten point review of systems is negative except as noted above. PFSH PFSH Social History Little interest or pleasure in doing things: not at all Feeling down, depressed, or hopeless: not at all Exam Narrative Exam Narrative: Nurses note and vital signs reviewed and patient is not hypoxic. General: The patient appears uncomfortable. Skin: Warm, dry, no pallor noted. There is no rash noted. Head: Normocephalic, atraumatic Eye: Normal conjunctiva, no drainage Ears, Nose, Mouth, and Throat: oral mucosa is moist. Nares patent. Cardiovascular: Regular Rate and Rhythm Respiratory: Patient is in no distress, no accessory muscle use, lungs are clear to auscultation, no wheezing, rales or rhonchi Back: non-tender, no CVA tenderness bilaterally to percussion. No bruise or rash present. GI: Soft and nontender Musculoskeletal: The patient has no evidence of calf tenderness, no pitting edema, symmetrical pulses noted bilaterally Neurological: A&O, normal speech Psychiatric: Cooperative Constitutional Vital Signs, click to edit/add: Last Vital Signs Temp 98.5 F 11/20/24 22:49 Pulse 92 H 11/20/24 22:49 Resp 16 11/20/24 22:49 BP 130/94 H 11/20/24 22:49 Pulse Ox 98 11/20/24 22:49 O2 Del Method Room Air 11/20/24 22:49 Course Vital Signs Vital signs: Vital Signs Temperature 98.5 F 11/20/24 22:49 Pulse Rate 92 H 11/20/24 22:49 Respiratory Rate 16 11/20/24 22:49 Blood Pressure 130/94 H 11/20/24 22:49 Pulse Oximetry 98 11/20/24 22:49 Oxygen Delivery Method Room Air 11/20/24 22:49 Temperature 98.5 F 11/20/24 22:49 Pulse Rate 92 H 11/20/24 22:49 Respiratory Rate 16 11/20/24 22:49 Blood Pressure 130/94 H 11/20/24 22:49 Pulse Oximetry 98 11/20/24 22:49 Oxygen Delivery Method Room Air 11/20/24 22:49 Medical Decision Making MDM Narrative Medical decision making narrative: 7.1 mm distal right ureteral stone is found on CAT scan. She is feeling improved and was given morphine and Toradol here as well as a Percocet to take home. She was prescribed Percocet, Zofran, and Flomax and was referred to urology. She was instructed to call them in the morning for follow-up. Treatment diagnosis and follow-up were discussed with the patient. Lab Data Lab results reviewed: Yes I reviewed the patient's lab results Labs: Lab Results 11/20/24 11/20/24 Range/Units 22:50 23:00 WBC 15.5 H (4.0-11.0) 10^3/uL RBC 4.30 (4.20-5.40) 10^6/uL Hgb 12.4 (12.0-16.0) g/dL Hct 37.7 (36.0-48.0) % MCV 87.7 (81.0-99.0) fL MCH 28.8 (26.7-34.0) pg MCHC 32.9 (29.9-35.2) g/dL RDW 12.8 (11.0-15.0) % Plt Count 347 (150-450) 10^3/uL MPV 10.3 (9.5-13.5) fL Neut % (Auto) 83.0 H (43.0-75.0) % Lymph % (Auto) 10.6 L (20.5-60.0) % Darke % (Auto) 5.0 (1.7-12.0) % Eos % (Auto) 0.8 L (0.9-7.0) % Baso % (Auto) 0.3 (0.2-2.0) % Neut # (Auto) 12.9 H (1.4-6.5) 10^3/uL Lymph # (Auto) 1.6 (1.2-3.8) 10^3/uL Darke # (Auto) 0.8 (0.3-0.8) 10^3/uL Eos # (Auto) 0.1 (0.0-0.7) 10^3/uL Baso # (Auto) 0.1 (0.0-0.1) 10^3/uL Abs Immat Gran (auto) 0.04 H (0.00-0.03) 10^3/uL Imm/Tot Granulo (auto) 0.3 (0.0-0.5) % Sodium 140 (136-145) mmol/L Potassium 3.6 (3.5-5.1) mmol/L Chloride 103 (98-107) mmol/L Carbon Dioxide 26.7 (21.0-32.0) mmol/L Anion Gap 13.9 BUN 19.0 H (7.0-18.0) mg/dL Creatinine 1.18 H (0.55-1.02) mg/dL Est GFR ( Amer) >60 (>=60 mL/min/1.73m^2) Est GFR (Non-Af Amer) 57 L (>=60 mL/min/1.73m^2) BUN/Creatinine Ratio 16.1 Glucose 107 H (74-106) mg/dL Calcium 9.2 (8.5-10.1) mg/dL Serum HCG, Qual Negative (NEGATIVE) Urine Color Dk. orange (YELLOW) Urine Clarity Clear (CLEAR) Urine pH Color interference A (5.0-9.0) Ur Specific [place] 1.025 (1.005-1.025) Urine Protein Color interference A (NEG/TRACE) mg/dL Urine Glucose (UA) Color interference A (NEGATIVE) mg/dL Urine Ketones Color interference A (NEGATIVE) mg/dL Urine Occult Blood Color interference A (NEGATIVE) Urine Nitrite Color interference A (NEGATIVE) Urine Bilirubin Color interference A (NEGATIVE) Urine Urobilinogen Color interference A (0.2-1.0) EU/dL Ur Leukocyte Esterase Color interference A (NEGATIVE) Urine RBC 0-2 (0-2) #/HPF Urine WBC 0-2 A (NONE SEEN) #/HPF Ur Squamous Epith Cells Moderate A (NONE/RARE) #/LPF Urine Crystals Seen A (None Seen) #/HPF Calcium Oxalate Crystal Many Urine Bacteria None seen (NONE SEEN) #/HPF Urine Casts None seen (NONE SEEN) #/LPF Urine Mucus None seen (NONE SEEN) Ur Culture Indicated? No Urine HCG, Qual Negative (NEGATIVE) Imaging Data CT scan - abdomen: Radiologist's impression: 7.1 mm stone in the distal right ureter with associated partial right renal obstruction, bilateral nephrolithiasis, right greater than left. Right hydronephrosis. Discharge Plan Discharge Chief Complaint: Back Pain/Injury Clinical Impression: Kidney stone Patient Disposition: Home, Self-Care Time of Disposition Decision: 00:33 Condition: Good Mode of Transportation: Private Vehicle Prescriptions / Home Meds: New oxycodone-acetaminophen [Percocet] 5-325 mg tablet 1 tab PO Q6H PRN (Reason: pain) 5 Days Qty: 20 0RF tamsulosin [Flomax] 0.4 mg capsule 0.4 mg PO DAILY Qty: 7 0RF ondansetron 4 mg tablet,disintegrating 4 mg PO Q6H PRN (Reason: nausea and vomiting) Qty: 20 0RF No Action hydrocodone-acetaminophen 5-325 mg tablet 1 tab PO Q6H PRN (Reason: pain) 3 Days Qty: 12 0RF Rx Instructions: DX: R10.9 ketorolac 10 mg tablet 10 mg PO TID PRN (Reason: pain) Qty: 10 0RF ondansetron 4 mg tablet,disintegrating 4 mg PO Q6H PRN (Reason: nausea and vomiting) Qty: 12 0RF polyethylene glycol 3350 [Miralax] 17 gram/dose powder 17 g PO DAILY Qty: 238 0RF lidocaine 5 % cream 1 applic topical QID PRN (Reason: pain) Qty: 30 0RF prednisone 10 mg tablet See Rx Instructions .ROUTE .COMPLEX Qty: 30 0RF Rx Instructions: 4 by mouth daily for three days then 3 by mouth daily for three days then 2 by mouth daily for three days then 1 by mouth daily for three days Print Language: Nigerien Instructions: Kidney Stones (ED), How to Strain Your Urine (ED) Additional Instructions: Call Dr. Duncan' office in the morning. Referrals: Ky Duncan MD [Physician] - AUSTYN URBAN [Primary Care Provider] - 1 week
[2024-11-20] MEDS: ONDANSETRON PF 4 MG/2 ML VIAL IV (23:04)
[2024-11-20] MEDS: MORPHINE SULFATE 4 MG/ML VIAL IV (23:04)
[2024-11-20 23:09] LABS: Basophils Absolute Auto 0.1 10^3/uL (0.0-0.1); Basophils Percent Auto 0.3 % (0.2-2.0); Eosinophils Absolute Auto 0.1 10^3/uL (0.0-0.7); Eosinophils Percent Auto 0.8 % (0.9-7.0); Hematocrit 37.7 % (36.0-48.0); Hemoglobin 12.4 g/dL (12.0-16.0); Immature Granulocytes Abs Auto 0.04 10^3/uL (0.00-0.03); Immature Granulocytes Pct Auto 0.3 % (0.0-0.5); Lymphocytes Absolute Auto 1.6 10^3/uL (1.2-3.8); Lymphocytes Percent Auto 10.6 % (20.5-60.0); Mean Corpuscular HGB Conc 32.9 g/dL (29.9-35.2); Mean Corpuscular Hemoglobin 28.8 pg (26.7-34.0); Mean Corpuscular Volume 87.7 fL (81.0-99.0); Mean Platelet Volume 10.3 fL (9.5-13.5); Monocytes Absolute Auto 0.8 10^3/uL (0.3-0.8); Neutrophils Absolute Auto 12.9 10^3/uL (1.4-6.5); Platelet Count 347 10^3/uL (150-450); Red Cell Distribution Width 12.8 % (11.0-15.0); White Blood Count 15.5 10^3/uL (4.0-11.0)
[2024-11-20 23:10] LABS: Clarity Urine CLEAR (CLEAR); Color Urine DK. ORANGE (YELLOW); Specific Gravity Urine 1.025 (1.005-1.025)
[2024-11-20 23:13] LABS: Bilirubin Urine COLOR INTERFERENCE (NEGATIVE); Blood Urine COLOR INTERFERENCE (NEGATIVE); Glucose Urine UA COLOR INTERFERENCE mg/dL (NEGATIVE); Ketones Urine COLOR INTERFERENCE mg/dL (NEGATIVE); Leukocyte Esterase Urine COLOR INTERFERENCE (NEGATIVE); Nitrite Urine COLOR INTERFERENCE (NEGATIVE); Protein Urine COLOR INTERFERENCE mg/dL (NEG/TRACE); Urobilinogen Urine COLOR INTERFERENCE EU/dL (0.2-1.0); pH Urine COLOR INTERFERENCE (5.0-9.0)
[2024-11-20 23:14] LABS: HCG Qualitative Urine* NEGATIVE (NEGATIVE); Internal Control Within Normal Limits
[2024-11-20 23:17] LABS: Bacteria Urine NONE SEEN #/HPF (NONE SEEN); Calcium Oxalate Crystals Urine MANY; Cast Seen? NONE SEEN #/LPF (NONE SEEN); Crystals Seen? Seen #/HPF (None Seen); Mucus Urine NONE SEEN (NONE SEEN); RBC Urine 0-2 #/HPF (0-2); Squamous Epithelial Cell Urine MODERATE #/LPF (NONE/RARE); Urine Culture Indicated NO; WBC Urine 0-2 #/HPF (NONE SEEN)
[2024-11-20 23:17] LABS: Anion Gap 13.9; BUN Creatinine Ratio 16.1; Calcium 9.2 mg/dL (8.5-10.1); Carbon Dioxide 26.7 mmol/L (21.0-32.0); Chloride 103 mmol/L (98-107); Estimated GFR (African America >60 (>=60 mL/min/1.73m^2); Estimated GFR (Non-African Ame 57 (>=60 mL/min/1.73m^2); Glucose 107 mg/dL (74-106); HCG Qualitative NEGATIVE (NEGATIVE); Internal Control Within Normal Limits; Potassium 3.6 mmol/L (3.5-5.1); Sodium 140 mmol/L (136-145)
[2024-11-21] MEDS: KETOROLAC TROMETHAMINE 30 MG/ML VIAL IVP (00:48)
[2024-11-21] MEDS: OXYCODONE HCL/ACETAMINOPHEN 5MG/325MG 1 TAB PO (00:48)
[2024-11-21 00:55] VITALS: BP 129/90; PULSE 85; O2SAT 97
== END 2024-11-21 00:55 | disposition home or self-care (01) ==
PROVIDERS: Emergency Provider Emergency Medicine; Family Provider Family Medicine; PCP Family Medicine
DX: N13.2 Hydronephrosis with renal and ureteral calculous obstruction (principal); Z87.442 Personal history of urinary calculi
CPT/HCPCS: 36415; 74176; 80048; 81001; 84703; 85025; 96374; 96375; 99285; J1885; J2270; J2405

== ENCOUNTER 2024-12-03 00:24 | Emergency (ER) | payer OTHER, SELFPAY ==
[2024-12-03 00:34] VITALS: BP 112/79; PULSE 108; TEMP 37.4; O2SAT 100; BMI 26.5
--- OUTSIDE RECORDS SUMMARY | 2024-12-03 00:53 | XMS_ITS | CCD ---
Author Organization [facility] Care Team Providers Care Merchandise Pickup/Receiving Associate Name Role Phone Jenn Urban Primary Care [...] Provider UnavailJenn Hinton MD Primary Care Provider [phone] Jenn Urban MD Unavailable Jenn Urban MD Primary Care Provider [phone] Luís Greenfield Attending Unavailable Luís Greenfield Attending [...] JOHNSON Referring Unavailable Jose Wilkinson Attending Unavailable Yesys Guerrero Attending Unavailable Yessy Guerrero Admitting Unavailable Jose Wilkinson Attending Unavailable Yessy Guerrero Attending Unavailable Yessy Guerrero Admitting Unavailable Yessy Guerrero Attending Unavailable Luís Perla Attending Unavailable Luís Perla Admitting Unavailable Luís Perla Attending Unavailable Luís Perla Referring Unavailable Luís Greenfield Attending Unavailable Jose Wilkinson Attending Unavailable NATA MEDINA Attending Unavailable Rey Barrera Attending Unavailable Rey Barrera Attending Unavailable Marybel Will Attending Unavailable Marybel Will MD Attending Provider [phone] Jenn Urban MD Primary Care Provider Jenn Urban Primary Care Unavailable Marybel Will Attending Unavailable Marybel Will Admitting Unavailable Allergies Allergy Classification Reported Allergen(s) Allergy Type Date of Onset Reaction(s) Facility (14 sources) Loperamide; Translations: [loperamide] Drug Allergy 08-11-2023 [facility] Medications Current Medications Medication Drug Class(es) Dates Sig (Normalized) Sig (Original) acetaminophen 325 mg / HYDROcodone bitartrate 5 mg oral tablet (1 source) Opioid Agonist Start: 04-12-2023 End: 04-15-2023 Allen 325 mg-5 mg oral tablet 1 tab(s), [...] day(s), # 10 tab(s), Refills(s) 0, Pharmacy: [facility]/pharmacy #[id number], 158, cm, 05/27/24 13:27:00 EDT, Height/Length Dosing, 64.8, kg, 05/27/24 13:27:00 EDT, Weight Dosing Start Date: 05/27/24 Stop Date: 06/01/24 Status: Ordered brompheniramine maleate 0.4 mg/ml / dextromethorphan hydrobromide 2 mg/ml / pseudoephedrine hydrochloride 6 mg/ml oral solution (1 source) alpha-Adrenergic Agonist, Uncompetitive Z-adgdlj-Q-asparta te Receptor Antagonist, Sigma-1 Agonist Start: 06-28-2022 End: 07-05-2022 take 10 mL by mouth four times daily for cough and congestion Bromfed DM oral syrup 10 mL, Oral, QID for cough and congestion for 7 day(s), 280 mL, Refill(s) 0, [facility]/pharmacy #[id number], 157, cm, 06/28/22 17:24:00 [...] day(s), # 14 cap(s), Refills(s) 0, Pharmacy: [facility]/pharmacy #[id number], 158, cm, 10/28/24 6:50:00 [...] day(s), # 20 tab(s), Refills(s) 0, Pharmacy: [facility]/pharmacy #[id number], 158, cm, 10/10/24 13:53:00 [...] well before using wash hands before applying, [facility]/pharmacy #[id number], 158, cm, 05/27/24 13:27:00 EDT, Height/Length Dosing, 64.8, kg, 05/27/24 13:27:00 EDT, Weight Dosing Start Date: 05/27/24 Stop Date: 06/03/24 Status: Ordered clindamycin 300 mg oral capsule (5 sources) Lincosamide Antibacterial Start: 09-16-2020 take 1 capsule by mouth every eight hours clindamycin 300 mg oral cap 300 mg = 1 cap(s), Oral, q8hr, # 24 cap(s), Refills(s) 0, [id number], cm, 09/16/20 21:21:00 EST, Height/Length Dosing, 52, kg, 09/16/20 21:21:00 EST, Weight Dosing Start Date: 09/16/20 Status: Ordered cloNIDine hydrochloride 0.3 mg oral tablet (20 sources) Central alpha-2 Adrenergic Agonist Start: 11-26-2024 take 1 tablet by mouth at bedtime Clonidine Hcl 0.3 mg tablet Active 0.3 MG PO Bedtime November 26, 2024 12:00am Start: 05-23-2023 take 2 tablets by [facility] once daily at bedtime, then take 2 tablets by mouth once daily at bedtime cloNIDine HCl (CATAPRES) 0.3 mg tablet Take 0.6 mg by mouth daily at bedtime. Take 0.6 mg by mouth daily at bedtime. 05/23/2023 Active Start: 05-18-2017 take 2 tablets by [facility] once daily at bedtime cloNIDine 0.2 mg [...] cramping, # 12 cap(s), Refills(s) 0, Pharmacy: [facility]/pharmacy #[id number], 157, cm, 03/19/23 6:49:00 EDT, Height/Length Dosing, 56, kg, 03/19/23 6:49:00 EDT, Weight Dosing Start Date: 03/19/23 Status: Ordered Start: 11-11-2022 End: 11-18-2022 take 1 capsule by mouth four times daily Bentyl 10 mg Cap 10 mg = 1 cap(s), Oral, QID, X 7 day(s), # 28 cap(s), Refills(s) 0, Pharmacy: [facility]/pharmacy #[id number], 158, cm, 11/11/22 15:01:00 [...] constipation, # 100 cap(s), Refills(s) 0, Pharmacy: [facility]/pharmacy #[id number], 158, cm, 10/10/24 13:53:00 [...] Daily, # 30 tab(s), Refills(s) 0, Pharmacy: [facility]/pharmacy #[id number], 157, cm, 03/19/23 6:49:00 [...] Topical, TID Pain, 30 mL, Refill(s) 0, [facility]/pharmacy #[id number], 158, cm, 06/28/24 14:54:00 EDT, Height/Length [...] day(s), # 20 tab(s), Refills(s) 0, Pharmacy: [facility]/pharmacy #[id number], 158, cm, 10/28/24 6:50:00 [...] day(s), # 14 cap(s), Refills(s) 0, Pharmacy: [facility]/pharmacy #[id number], 158, cm, 06/28/24 14:54:00 EDT, Height/Length Dosing, 65.1, kg, 06/28/24 14:54:00 EDT, Weight Dosing Start Date: 06/28/24 Stop Date: 07/05/24 Status: Ordered Start: 06-11-2024 End: 06-18-2024 take 1 capsule by mouth twice daily Macrobid 100 mg Cap 100 mg = 1 cap(s), Oral, BID, X 7 day(s), # 14 cap(s), Refills(s) 0, Pharmacy: [facility]/pharmacy #[id number], 157.4, cm, 06/11/24 10:45:00 EDT, [...] Nausea/Vomiting, # 15 tab(s), Refills(s) 0, [id number], cm, 10/28/24 6:50:00 EST, Height/Length Dosing, 64, kg, 10/28/24 6:50:00 EST, Weight Dosing Start Date: 10/28/24 Status: Ordered oxybutynin chloride 5 mg oral tablet (1 source) Cholinergic Muscarinic Antagonist Start: 11-26-2024 Oxybutynin Chloride 5 mg tablet Active 5 MG PO 2-3 TIMES PER DAY as needed for bladder spasms November 26, 2024 12:00am pantoprazole 20 mg delayed release oral tablet (1 source) Proton Pump Inhibitor Start: 07-29-2024 End: 08-12-2024 take 1 tablet by mouth once daily Pantoprazole [address] Tab 20 mg = 1 tab(s), Oral, Daily, X 14 day(s), # 14 tab(s), Refills(s) 0, [id number] 158, cm, 07/29/24 6:03:00 EST, Height/Length Dosing, 64.6, kg, 07/29/24 6:03:00 EST, Weight Dosing Start Date: 07/29/24 Stop Date: 08/12/24 Status: Ordered penicillin v potassium 500 mg oral tablet (5 sources) Start: 09-29-2021 take 1 tablet by mouth every six hours penicillin V potassium 500 mg Tab 500 mg = 1 tab(s), Oral, q6hr, # 40 tab(s), Refills(s) 0, Pharmacy: [facility]/pharmacy #[id number], 157.5, cm, 09/29/21 1:19:00 EST, Height/Length Dosing, 56.1, kg, 09/29/21 1:19:00 EST, Weight Dosing Start Date: 09/29/21 Status: Ordered phenazopyridine hydrochloride 100 mg oral tablet (3 sources) Start: 10-28-2024 End: 10-31-2024 take 1 tablet by mouth three times daily Pyridium 100 mg Tab 100 mg = 1 tab(s), Oral, TID, X 3 day(s), # 9 tab(s), Refills(s) 0, Pharmacy: [facility]/pharmacy #[id number], 158, cm, 10/28/24 6:50:00 [...] day(s), # 9 tab(s), Refills(s) 1, Pharmacy: [facility]/pharmacy #[id number], 158, cm, 10/10/24 13:53:00 EST, Height/Length Dosing, 63.1, kg, 10/10/24 13:53:00 EST, Weight Dosing Start Date: 10/10/24 Stop Date: 10/16/24 Status: Ordered polyethylene glycol 3350 58977 mg powder for oral solution (13 sources) Osmotic Laxative Start: 06-11-2024 take 17 g by mouth once daily Miralax 3350 17 gram packet 17 gm, Oral, Daily, # 255 gm, Refills(s) 1, Pharmacy: [facility]/pharmacy #[id number], 158, cm, 10/10/24 13:53:00 EST, Height/Length Dosing, 63.1, kg, 10/10/24 13:53:00 EST, Weight Dosing Start Date: 10/10/24 Status: Ordered Start: 11-11-2022 polyethylene g lycol 3350 Oral Pwdr for Recon 17 gram, Oral, Daily, dissolve in water before taking, # 527 gram, Refills(s) 0, Pharmacy: [facility]/pharmacy #[id number], 158, cm, 11/11/22 15:01:00 EST, Height/Length Dosing, 57, kg, 11/11/22 15:01:00 EST, Weight Dosing Start Date: 11/11/22 Status: Ordered polyethylene glycol 3350 287251 mg / potassium chloride 2970 mg / sodium bicarbonate 6740 mg / sodium chloride 5860 mg / sodium sulfate 07112 mg powder for oral solution (5 sources) [...] oral solution (1 source) Start: End: sodium picosulfate-magnesi um oxide-citric acid (CLENPIQ) 10 mg-3.5 gram- 12 gram/175 mL oral solution Refer to instructions given by your provider 350 mL 0 02/16/2024 02/18/2024 Active sucralfate 1000 mg oral tablet (1 source) Aluminum Complex Start: End: take 1 tablet by mouth four times daily Carafate 1 gram Tab 1 gm = 1 tab(s), Oral, QID, X 10 day(s), # 40 tab(s), Refills(s) 0, Pharmacy: [facility]/pharmacy #[id number], 158, cm, 07/29/24 6:03:00 EST, Height/Length Dosing, 64.6, kg, 07/29/24 6:03:00 EST, Weight Dosing Start Date: 07/29/24 Stop Date: 08/08/24 Status: Ordered sulfamethoxazole 800 mg / trimethoprim 160 mg oral tablet (1 source) Dihydrofolate Reductase Inhibitor Antibacterial, Sulfonamide Antimicrobial Start: take 1 tablet by mouth every twelve hours Sulfamethoxazole-Tr imethoprim (Bactrim Ds) 800-160 mg tablet Active 1 TAB PO Every 12 hours November 26, 2024 12:00am tamsulosin hydrochloride 0.4 mg oral capsule (3 sources) alpha-Adrenergic Keely Start: take 1 capsule by mouth once daily as needed for pain Tamsulosin 0.4 mg capsule Active 0.4 MG PO Daily as needed for stent pain November 26, 2024 4:06pm Start: 10-28-2024 take 1 capsule by [facility] once daily Flomax 0.4 mg Cap 0.4 mg = 1 cap(s), Oral, Daily, # 10 cap(s), Refills(s) 0, Pharmacy: [facility]/pharmacy #[id number], 158, cm, 10/28/24 6:50:00 EST, Height/Length Dosing, 64, kg, 10/28/24 6:50:00 EST, Weight Dosing Start Date: 10/28/24 Status: Ordered Start: 04-12-2023 take 1 capsule by [facility] once daily Flomax 0.4 mg Cap 0.4 mg = 1 cap(s), Oral, Daily, # 10 cap(s), Refills(s) 0, Pharmacy: [facility]/pharmacy #[id number], 157.4, cm, 04/12/23 2:00:00 EDT, Height/Length Dosing, 56, kg, 04/12/23 2:00:00 EDT, Weight Dosing Start Date: 04/12/23 Status: Ordered Zofran ODT 4 mg Tab-Dis (9 sources) Start: 07-29-2024 take 1 tablet by mouth every eight hours as needed for nausea Zofran ODT 4 mg Tab-Dis 4 mg = 1 tab(s), Oral, q8hr, PRN Nausea/Vomiting, # 16 tab(s), Refills(s) 0, Pharmacy: [facility]/pharmacy #[id number], 158, cm, 07/29/24 6:03:00 EST, Height/Length Dosing, 64.6, kg, 07/29/24 6:03:00 EST, Weight Dosing Start Date: 07/29/24 Status: Ordered Start: 04-12-2023 take 1 tablet by tiffany every eight hours Zofran ODT 4 mg Tab-Dis 4 mg = 1 tab(s), Oral, q8hr, # 12 tab(s), Refills(s) 0, Pharmacy: [facility]/pharmacy #[id number], 157.4, cm, 04/12/23 2:00:00 EDT, Height/Length Dosing, 56, kg, 04/12/23 2:00:00 EDT, Weight Dosing Start Date: 04/12/23 Status: Ordered Start: 03-19-2023 take 1 tablet by tiffany every eight hours as needed for nausea Zofran ODT 4 mg Tab-Dis 4 mg = 1 tab(s), Oral, q8hr, PRN Nausea/Vomiting, # 12 tab(s), Refills(s) 0, Pharmacy: [facility]/pharmacy #[id number], 157, cm, 03/19/23 6:49:00 EDT, Height/Length Dosing, 56, kg, 03/19/23 6:49:00 EDT, Weight Dosing Start Date: 03/19/23 Status: Ordered Start: 01-24-2023 take 1 tablet by tiffany every eight hours as needed for nausea Zofran ODT 4 mg Tab-Dis 4 mg = 1 tab(s), Oral, q8hr, PRN Nausea/Vomiting, # 20 tab(s), Refills(s) 0, Pharmacy: [facility]/pharmacy #[id number], 158, cm, 01/23/23 22:00:00 [...] mg/ml prefilled syringe (9 sources) Progestin Start: medroxyPROGESTERone (DEPO-PROVERA) 150 mg/mL 150 MG EVERY [...] current use of drug therapy; Translations: [Other alf (current) drug therapy] Episodic Other ear and [...] Test Name Value Interpretation Reference Range Facil ity [place] urethrocystogram retroon 11-26-2024 [place] urethrocystogram retro [facility] [place] [address] Fluoroscopy Report Signed Patient: Sherie Rizvi MR#: [id number] 0 : 2000 Acct:[id number] Age/Sex: 24 / F ADM Date: 11/26/24 Loc: [place] Room: Type: [facility] Attending Dr: Marybel Will MD Copies to: Marybel Will MD Ordering Provider: Marybel Will MD Date of Service: 11/26/24 FL/FL urethrocystogram retro: RT LITHO Intraoperative study. Reason for exam: Right stent placement. Stone extraction. Findings: 10 images were obtained intraoperatively. Contrast is seen within the right collecting system with stent placement Cumulative Air Kerma in mGy: 2 mGy FL/FL urethrocystogram retro Impression: Intraoperative study. Impression dictated by: Benson Stevenson Jr., Valeria11/26/2024 6:23 PM Dictation Location: RADIO-PC-18 Transcribed By: PWS 11/26/241822 Dictated By: Benson Stevenson Jr, DO 11/26/241821 Signed By: 11/26/241822 Normal [facility] HCG ( test) IA.anniei d Ql (U)Ordered By: Billy Hernandez on 11-26-2024 HCG ( test) Ql (U) Urine human chorionic gonadotropin (hCG) detection by immunoassay [facility] HCG,Urineon 11-26-2024 Beta HCG ( test) Ql (U) Negative Normal [facility] Comment on above: Result Comment: PERF ORMED BY: [place] [address] PATHOLOGIST AIRLINE CUSTOMER SERVICE AGENT SENDY CHIU M.D. Performed By: #### U HCG #### [address] 11-26-2024 L -- ---- Specimen: [id number] Received: 11/27/24 Status: HARRIET Nuno Num: [id number] Spec Type: Surgical Subm Dr: Marybel Will MD Tissues: A Gross Only (URETERAL STONE) Procedures: Level 1 Gross ---- Age/ Patient Sex Location Account Attending Physician ---- Sherie Rizvi [place] [id number] Marybel Will MD ---- SPEC NUM: [id number] RECD: 11/27/24 STATUS: HARRIET NUNO NUM: [id number] CATALINA: 11/26/24-[address]: Marybel Will MD ENTERED: 11/27/[address] [facility] [address]: NIKITA TYPE: Surgical DEPT: S ENTERED BY: [id number] RECV BY: [id number] ORDERED: Level 1 Gross ORDERED: Level 1 Gross Pathological Diagnosis Right ureteral stone, evacuation and retrieving -3 ramirez chavez calculi for gross only examination, pending further chemical analysis to follow Clinical Information R ureteral stone with hydronephrosis Gross Description Part A is received fresh labeled with the patients name, date of , and R ureteral stone are 3 chavez-ramirez, granular, 0.2, 0.3 and 0.4 cm in greatest dimension calculi. [facility] GROSS ONLY-JG Microscopic Description Not provided CPT Codes 87578 ---- ---- Specimen: [id number] Received: 11/27/24 Status: HARRIET Nuno Num: [id number] Spec Type: Surgical Subm Dr: Marybel Will MD Tissues: A Gross Only (URETERAL STONE) Procedures: Level 1 Gross ---- Patient: Sherie Rizvi [id number] (Continued) ---- Signed (signature on file) Ziggy Mays MD 11/28/24 1500 Normal [facility] Ambulatory Visit Summaryon 0 11-25-2024 Ambulatory Visit Summary Ambulatory Visit Summary SHERIE RIZVI :2000 Visit Date:11/25/2024 Ambulatory Visit Instructions Your Diagnosis Ureteral stone with hydronephrosis Kidney stone History of UTI Your Care Team Attending Physician - Suman PIERCE, Marybel Fitzgerald Primary Care Physician - Jenn Urban MD This Is Your Medications List Contact prescribing physician if questions or concerns clonidine (cloNIDine 0.2 mg Tab) docusate (Colace 100 mg Cap) drospirenone-ethinyl estradiol (Vestura 3 mg-0.02 mg oral tablet) ondansetron (Zofran ODT 4 mg Tab-Dis) ondansetron (ondansetron 4 mg Dis Tab) polyethylene glycol 3350 (Miralax 3350 17 gram packet) tamsulosin (Flomax 0.4 mg Cap) Procedures Performed Denies. Discharge Vitals Heart Rate (Peripheral) 84 Respiratory Rate 18 Blood Pressure 120/80 Height 158 cm Height 62 in Weight 64 kg Weight 141.096 lb BMI 25.64 What to do next You Need to Schedule the Following Appointments Follow Up with Suman PIERCE, Marybel Fitzgerald, URL, URO When: Where: Medications What How Much When Instructions Unchanged clonidine (cloNIDine 0.2 mg Tab) 2 Tablets By Mouth Once a day (at bedtime) Contact prescribing physician if questions or concerns Unchanged docusate (Colace 100 mg Cap) 1 Capsules By Mouth Every day as needed for for constipation Contact prescribing physician if questions or concerns Unchanged drospirenone-ethinyl estradiol (Vestura 3 mg-0.02 mg oral tablet) Contact prescribing physician if questions or concerns Unchanged ondansetron (ondansetron 4 mg Dis Tab) 1 Tablets By Mouth Every 6 hours as needed for Nausea/Vomiting Contact prescribing physician if questions or concerns Unchanged ondansetron (Zofran ODT 4 mg Tab-Dis) 1 Tablets By Mouth Every 8 hours as needed for Nausea/Vomiting Contact prescribing physician if questions or concerns Unchanged polyethylene glycol 3350 (Miralax 3350 17 gram packet) 17 Gram By Mouth Every day Contact prescribing physician if questions or concerns Unchanged tamsulosin (Flomax 0.4 mg Cap) 1 Capsules By Mouth Every day Contact prescribing physician if questions or concerns Allergies No Known Allergies Problems Ongoing - Any problem that you are currently receiving treatment for. ADHD - Attention deficit disorder with hyperactivity Dense breasts Family history of breast cancer in female Glucosuria History of UTI Kidney stone Pyelonephritis Ureteral stone with hydronephrosis UTI (urinary tract infection) UTI symptoms Patient Survey You may receive a survey via text or e-mail asking about your office visit. Please share your experience with us by completing your survey. We appreciate your feedback and thank you for choosing us for your care. Education Materials Dietary Guidelines to Help Prevent Kidney Stones Kidney stones are deposits of minerals and salts that form inside your kidneys. Your risk of developing kidney stones may be greater depending on your diet, your lifestyle, the medicines you take, and whether you have certain medical conditions. Most people can lower their risks of developing kidney stones by following these dietary guidelines. Your dietitian may give you more specific instructions depending on your overall health and the type of kidney stones you tend to develop. What are tips for following this plan? Reading food labels ??? Choose foods with no salt added or low-salt labels. Limit your salt (sodium) intake to less than 1,500 mg a day. ??? Choose foods with calcium for each meal and snack. Try to eat about 300 mg of calcium at each meal. Foods that contain 200???500 mg of calcium a serving include: ? 8 oz (237 mL) of milk, iduugej-kjtpwdbvrihu-e airy milk, and calcium-fortifiedfruit juice. Calcium-fortified means that calcium has been added to these drinks. ? 8 oz (237 mL) of kefir, yogurt, and soy yogurt. ? 4 oz (114 g) of tofu. ? 1 oz (28 g) of cheese. ? 1 cup (150 g) of dried figs. ? 1 cup (91 g) of cooked broccoli. ? One 3 oz (85 g) can of sardines or mackerel. Most people need 1,000???1,500 mg of calcium a day. Talk to your dietitian about how much calcium is recommended for you. Shopping ??? Buy plenty of fresh fruits and vegetables. Most people do not need to avoid fruits and vegetables, even if these foods contain nutrients that may contribute to kidney stones. ??? When shopping for convenience foods, choose: ? Whole pieces of fruit. ? Pre-made salads with dressing on the side. ? Low-fat fruit and yogurt smoothies. ??? Avoid buying frozen meals or prepared deli foods. These can be high in sodium. ??? Look for foods with live cultures, such as yogurt and kefir. ??? Choose high-fiber grains, such as whole-wheat breads, oat bran, and wheat cereals. Cooking ??? Do not add salt to food when cooking. Place a salt shaker on the table and allow each person to add their own sa (more content not included)... [facility] Urology Office/Clinic Noteon 11-25-2024 Urology Office/Clinic Note Urology Office/Clinic Note Chief Complaint New Pt. Hospital follow up HPI Staff 24 year old female here for F/U to ER due to Kidney stone 10/28/24' CT done showing MODERATELY OBSTRUCTING APPROXIMATELY 5 TO 6 MM PROXIMAL RIGHT URETERALCALCULUS. C&S 10/10/24 - 75,000 cfu/ml Escherichia coli <10,000 cfu/ml Mixed skin contaminants Pt took AZO last night Pt states she is having a lot of pressure and pain with urination, denies visible blood, feels nausea and flu like symptoms Denies any abdomen/flank pain History of Present Illness Tests reviewed: reviewed UA, external records: labs, UCx, CT, ER records. I have reviewed the previous health record information and history for this patient from external provider I have reviewed and verified the staff HPI to be accurate for this encounter. There have been no associated fever, chills, flank pain, or blood in the urine. Review of Systems PHQ Score Initial Depression Screen Score: 0 SCORE ROS - Provider Constitutional: denies weight loss, denies hot flashes. Eyes: denies eye problems. Gastrointestinal: moderate nausea, denies vomiting. Cardiovascular: denies chest pain or angina. Integumentary: no dryness Musculoskeletal: denies musculoskeletal symptoms. ENMT: denies otolaryngeal symptoms. Respiratory: no shortness of breath. Heme/Lymph: denies easy bleeding tendency, denies easy bruising tendency. Psychiatric: no confusion, no anxiety. Genitourinary: See HPI. Physical Exam Vitals & Measurements HR: 84(Peripheral) RR: 18 BP: 120/80 HT: 62 in HT: 158 cm WT: 141.096 lb WT: 64 kg BMI: 25.64 General Appearance: alert , no acute distress, well nourished, well developed female. Head: normocephalic . Eyes: normal orbit and globe. ENMT: normal examination of external ears. Genitourinary: bladder nonpalpable, no flank tenderness. RLQ mild TTP Psychiatric: cooperative, affect appropriate for age, normal judgement, euthymic mood. Assessment/Plan 24 yo female presents for recent [facility] ER visit x 2 for right ureteral stone. Denies diabetes, CVA, AR. Not on anticoagulation. BBSQ 12 1. Ureteral stone with hydronephrosis (N13.2: Hydronephrosis with renal and ureteral calculous obstruction) KUB 06/27/24 [facility] - neg for obvious stones however large stool burden. Pt presented to [facility] ER 10/28/24 due to dysuria, urinary frequency, nausea and back pain. CT AP w con 10/28/24 [facility] - Moderate right hydronephrosis secondary to an approximately 5 to 6 mm calculus (average Hounsfield units approximately 1000) within the proximal third of the right ureter approximately 17 cm superior to the right UVJ. Labs - Cr 0.8, eGFR 107 Neg UCx Pt later presented to [facility] ER 11/20/24. Labs - Cr 1.18, elevated WBC 15 UA negative for WBCs. No culture was sent. CT AP wo con - 7 mm R distal stone with partial obstruction. Mild R perinephric stranding. Has not passed stone. Denies gross hematuria. Experiencing nausea, similar to flu like symptoms. Pt states she has had a low-grade fever on and off. Pt reports abdominal pressure and painful urination. Pt states this is her 3rd or 4th stone. No prior surgical mgmt. Discussed management options including medical expulsive therapy x 4-6 week vs intervention including extracorporeal shockwave lithotripsy vs ureteroscopy with laser lithotripsy/stone basket extraction possible stent. Risks/benefits of each were discussed including but not limited to: MET- renal damage, pain or infection; ESWL- bleeding, hematoma, pain, infection, inability to break up the stone, ureteral obstruction, cardiac arrhythmias, damage to surrounding structures and need for additional procedures; ureteroscopy - bleeding, pain, infection, damage to surrounding structures, ureteral perforation, stricture, inability to treat the stone and need for additional procedures. If a stent is placed, pt understands this is not permanent and needs to be removed or exchanged within 3 months to prevent encrustation, infection, permanent renal damage and need for more invasive procedures. Pt wishes to proceed with surgical mgmt despite the risk of stone not being present -Schedule cysto, R RPG, R URS, R laser litho, R stent placement under general anesthesia for 11/26/24 -NPO after midnight tonight -Call to cancel if stone has passed visibly 2. Kidney stone (N20.0: Calculus of kidney) CT AP w con 10/28/24 [facility] - 2 to [address] AP wo con 11/20/24 [facility] - bilateral stones. -See #1 Increase fluids, consider met workup in future 3. History of UTI (Z87.440: Personal history of urinary (tract) infections) UCx 06/13/24 - >100k Klebsiella pneumoniae. R to Ampicillin 10/12/24 - 75k E Coli, <10k mixed skin, tx'd with Cipro through primary care UA today shows trace-intact blood, positive NIT and trace leuks (AZO). Risk of sepsis if she has untreated UTI/infected urine proximal to stone Follow-up With When Contact Information Marybel Will MD, URL, URO Additional Instr (more content not included)... [facility] Comment on above: Result Comment: Elec tronically Signed By: Marybel Will MD\.br\Date and Time Signed: 11/25/24 14:37 EDT\.br\Electronically Co-Signed By: Aniyah Ventura\.br\Date and Time Co-Signed: 11/25/24 14:28 EDT\.br\Electronically Co-Signed By: Aniyah Ventura\.br\Date and Time Co-Signed: 11/25/24 14:33 EDT C Urineon 10-30-2024 Bacteria identified Cx Nom (U) Microbiology PROCEDURE: Urine Culture [R1] SOURCE: U CleanCatch BODY SITE: COLLECTED DATE/TIME: 10/28/2024 07:01 EST RECEIVED DATE/TIME: 10/28/2024 11:33 EST START DATE/TIME: 10/28/2024 11:33 EST FREE TEXT SOURCE: Rey Barrera DO. Rey Barrera DO. FINAL REPORTS Final Report [] Verified Date/Time: 10/30/2024 09:27 EST <10,000 cfu/ml Mixed skin contaminants Performing Locations R1: This test was performed at: [facility], [address] [place] [address], [address]- , [place], Normal [facility] Comment on above: Performed By: #### 2 [id number] #### [facility] [address] [place] [address] ED Note-Physicianon 10-29-19 ED Note-Physician ED Note-Physician Basic Information Time Seen: Teetee MAXWELL, Param Feliciano 10/28/2024 07:02 Chief Complaint right lower back [...] day(s), # 14 cap(s), Refills(s) 0, [id number], 158, cm, 10/28/24 6:50:00 EST, Height/Length Dosing, 64, kg, 10/28/24 6:50:00 EST, Weight Dosing ketorolac, 30 mg = 1 mL, Injection, IV Push, Once, Stop date 10/28/24 7:12:00 EST, STAT, Start date 10/28/24 7:12:00 EST, 10/28/24 7:12:00 EST naproxen, 500 mg = 1 tab(s), Oral, BID, X 10 day(s), # 20 tab(s), Refills(s) 0, [id number], 158, cm, 10/28/24 6:50:00 EST, Height/Length Dosing, 64, kg, 10/28/24 6:50:00 EST, Weight Dosing ondansetron, 4 mg = 1 tab(s), Oral, q6hr, PRN Nausea/Vomiting, # 15 tab(s), Refills(s) 0, [id number], 158, cm, 10/28/24 6:50:00 EST, Height/Length Dosing, 64, kg, 10/28/24 6:50:00 EST, Weight Dosing ondansetron, 4 mg = 2 mL, Injection, IV Push, Once, Stop date 10/28/24 7:12:00 EST, STAT, Start date 10/28/24 7:12:00 EST, 10/28/24 7:12:00 EST phenazopyridine, 100 mg = 1 tab(s), Oral, TID, X 3 day(s), # 9 tab(s), Refills(s) 0, [id number], 158, cm, 10/28/24 6:50:00 EST, Height/Margaret (more content not included)... [facility] Comment on above: Result Comment: Elec tronically Signed By: Teetee MAXWELL, Param Feliciano\.br\Date and Time Signed: 10/28/24 14:05 EST\.br\Electronically Co-Signed By: Luís Greenfield DO\.br\Date and Time Co-Signed: 10/29/24 19:18 EST BMPon 10-28-2024 Anion gap [Moles/Vol] 10 mmol/L Normal 6-16 [facility] Comment on above: Performed By: #### 2 [id number] #### [facility] [address] [place] [address] Calcium [Mass/Vol] 9.3 mg/dL Normal 8.9-11.1 [facility] Comment on above: Performed By: #### 2 [id number] #### [facility] [address] [place] [address] Chloride [Moles/Vol] 106 mmol/L Normal 101-111 [facility] Comment on above: Performed By: #### 2 [id number] #### [facility] [address] [place] [address] CO2 [Moles/Vol] 25 mmol/L Normal 21-31 [facility] Comment on above: Performed By: #### 2 675708 #### [facility] [address] [place] [address] Creatinine [Mass/Vol] 0.8 mg/dL Normal 0.5-1.3 [facility] Comment on above: Performed By: #### 2 [id number] #### [facility] [address] [place] [address] Glucose [Mass/Vol] 110 mg/dL Normal 55-199 [facility] Comment on above: Performed By: #### 2 538888 #### [facility] [address] [place] [address] Potassium [Moles/Vol] 3.4 mmol/L Low 3.5-5.3 [facility] Comment on above: Performed By: #### 2 008821 #### [facility] [address] [place] [address] Sodium [Moles/Vol] 138 mmol/L Normal 135-145 [facility] Comment on above: Performed By: #### 2 466708 #### [facility] [address] [place] [address] Urea nitrogen [Mass/Vol] 14 mg/dL Normal 5-21 [facility] Comment on above: Performed By: #### 2 076145 #### [facility] [address] [place] [address] Urea nitrogen/Creatinine [Mass ratio] 18 No Units Normal 10-20 [facility] Comment on above: Performed By: #### 2 [id number] #### [facility] [address] [place] [address] CBC w/ Auto Diffon 5 Basophils/100 WBC (Bld) 0.3 % Normal 0.0-2.0 [facility] Comment on above: Performed By: #### 2 [id number] #### [facility] [address] [place] [address] Basophils/Leukocytes Auto (Bld) [Pure # fraction] 0.0 E9/L Normal 0.0-0.2 [facility] Comment on above: Performed By: #### 2 409415 #### [facility] [address] [place] [address] Eosinophils (Bld) [#/Vol] 0.1 E9/L Normal 0.0-0.5 [facility] Comment on above: Performed By: #### 2 995841 #### [facility] [address] [place] [address] Eosinophils/100 WBC (Bld) 1.2 % Normal 0.0-8.0 [facility] Comment on above: Performed By: #### 2 [id number] #### [facility] [address] [place] [address] Erythrocyte distribution width (RBC) [Ratio] 13.8 % Normal 10.9-14.2 [facility] Comment on above: Performed By: #### 2 130754 #### [facility] [address] [place] [address] Hematocrit (Bld) [Volume fraction] 38.7 % Normal 34.0-46.0 [facility] Comment on above: Performed By: #### 2 739149 #### [facility] [address] [place] [address] Hemoglobin (Bld) [Mass/Vol] 13.1 g/dL Normal 12.0-16.0 [facility] Comment on above: Performed By: #### 2 325112 #### [facility] [address] [place] [address] Lymphocytes (Bld) [#/Vol] 2.3 E9/L Normal 1.0-4.0 [facility] Comment on above: Performed By: #### 2 387405 #### [facility] [address] [place] [address] Lymphocytes/100 WBC (Bld) 22.2 % Normal 14.0-50.0 [facility] Comment on above: Performed By: #### 2 615090 #### [facility] [address] [place] [address] MCH (RBC) [Entitic mass] 29.3 pg Normal 27.0-34.0 [facility] Comment on above: Performed By: #### 2 929617 #### [facility] [address] [place] [address] MCHC (RBC) [Mass/Vol] 33.8 g/dL Normal 31.4-36.0 [facility] Comment on above: Performed By: #### 2 262338 #### [facility] [address] [place] [address] MCV (RBC) [Entitic vol] 86.6 fL Normal 80.0-100.0 [facility] Comment on above: Performed By: #### 2 895014 #### [facility] [address] [place] [address] Monocytes (Bld) [#/Vol] 0.6 E9/L Normal 0.2-1.0 [facility] Comment on above: Performed By: #### 2 395308 #### [facility] [address] [place] [address] Neutrophils (Bld) [#/Vol] 7.2 E9/L Normal 2.0-7.5 [facility] Comment on above: Performed By: #### 2 852167 #### [facility] [address] [place] [address] Neutrophils/100 WBC (Bld) 70.1 % Normal 36.0-75.0 [facility] Comment on above: Performed By: #### 2 626453 #### [facility] [address] [place] [address] Platelet mean volume (Bld) [Entitic vol] 8.3 fL Normal 6.4-10.8 [facility] Comment on above: Performed By: #### 2 140133 #### [facility] [address] [place] [address] Platelets (Bld) [#/Vol] 303.0 E9/L Normal 150.0-500.0 [facility] Comment on above: Performed By: #### 2 905233 #### [facility] [address] [place] [address] RBC (Bld) [#/Vol] 4.5 E12/L Normal 4.3-5.9 [facility] Comment on above: Performed By: #### 2 690068 #### [facility] [address] [place] [address] WBC corrected for nucl RBC Auto (Bld) [#/Vol] 10.2 E9/L Normal 4.0-11.0 [facility] Comment on above: Performed By: #### 2 536427 #### [facility] [address] [place] [address] CHEMISTRYOrdered By: SYSTEM SYSTEM on 10-28-2024 Albumin [...] Signed by: Jean-Pierre Serrano MD Transcribed by: DP Technologist: HERIBERTO Heard [facility] ED Clinical Summaryon 2024 ED Clinical Summary ED Clinical Summary [address] [address] ED Clinical Summary Person Information Name: SHERIE RIZVI[place] Age: 24 Years : 2000 Sex: Female Language: Comoran PCP: Jenn Urban MD Marital Status: Single MRN: Visit Id: Visit Reason: Nausea; Back pain; [...] 10/28/2024 09:31:16 10/28/2024 09:31:16 10/28/2024 09:31:16 ADDRESS: [address] [place] [id number] [facility] DOC NOTES: MEDICAL INFORMATION: Prescriptions Given: New Medications [facility]/pharmacy #[id number], [address] [place], [place] [id number], [phone] cephalexin (cephalexin 500 mg Cap) 1 Capsules [...] Medications to Continue Taking That Have Changed [facility]/pharmacy #[id number], [address] [place], [place] [id number], [phone] START: ondansetron (ondansetron 4 mg Dis Tab) [...] symptoms arise. With: Address: When: Jenn Urban [address] [place] [address] , [address] [place] [address] Business (1) In 3 days 10/31/2024 DIAGNOSIS: Kidney stone on right side; UTI (urinary tract infection) [facility] ED Patient Summaryon 025 ED Patient Summary ED Patient Summary [address] [address] Patient Discharge Instructions Person Information Name: SHERIE RIZVI Age: 24 Years Arrival Date: 10/28/2024 06:45:36 Discharge Diagnosis: Kidney stone on right side; UTI (urinary tract infection) Primary Care Physician: Jenn Urban MD Provider Information Primary Provider: Luís Greenfield DO [employer] Specialist:Param Kingsley PA-C. The exam and treatment you received in the Emergency Department were for an urgent problem and are not intended as complete care. It is important that you follow up with a doctor, nurse practitioner, or physician???s hospital clinic assistant for ongoing care. If your symptoms become worse or you do not improve as expected and you are unable to reach your usual health care provider, you should return to the Emergency Department. We are available 24 hours a day. SHERIE RIZVI has been given the following list of patient education materials, prescriptions and follow-up instructions: Follow-up Instructions: With: Address: When: BRIDGET BENITO In 3 days 10/31/2024 Comments: Please call urology office to set up close follow-up appointment. Take medications as directed. Strain all urine. Return to ED if symptoms worsen or new symptoms arise. With: Address: When: Jenn Urban [address] [place] [address] Business (1) In 3 days 10/31/2024 In the event that this physician does not participate in your insurance network, please consult with your insurance company to find a nearby participating provider. Patient Education Materials: Urinary Tract Infection, Adult; Kidney Stones A MESSAGE TO ALL PATIENTS REGARDING OPIOIDS PRESCRIPTION OPIOIDS: WHAT YOU NEED TO KNOW Prescription opioids can be used to help relieve kpjpsqlq-ee-awmbpc pain and are often prescribed following a [...] pharmacy mail-jaci (more content not included)... [facility] Extra Blueon 10-28-2024 Tube Collected Plasma Yes Invalid Interpretation Code [facility] Comment on above: Performed By: #### 1 [id number] #### [facility] [address] [place] [address] HEMATOLOGYOrdered By: SYSTEM SYSTEM on 10-28-2024 Basophils/100 [...] 10-28-2024 Albumin [Mass/Vol] 4.5 g/dL Normal 3.3-5.0 [facility] Comment on above: Performed By: #### 2 [id number] #### [facility] [address] [place] [address] Albumin/Globulin (S) [Mass conc ratio] 1.9 Normal 1.1-2.2 [facility] Comment on above: Performed By: #### 2 917554 #### [facility] [address] [place] [address] ALP [Catalytic activity/Vol] 63 Int._Unit/L Normal 21-98 [facility] Comment on above: Performed By: #### 2 187472 #### [facility] [address] [place] [address] ALT No additional P-5'-P [Catalytic activity/Vol] 10 Int._Unit/L Normal 6-46 [facility] Comment on above: Performed By: #### 2 727069 #### [facility] [address] [place] [address] AST [Catalytic activity/Vol] 14 Int._Unit/L Normal 5-43 [facility] Comment on above: Performed By: #### 2 696717 #### [facility] [address] [place] [address] Bilirubin [Mass/Vol] 0.8 mg/dL Normal 0.0-1.1 [facility] Comment on above: Performed By: #### 2 815945 #### [facility] [address] [place] [address] Bilirubin.direct [Mass/Vol] 0.1 mg/dL Normal 0.0-0.4 [facility] Comment on above: Performed By: #### 2 946139 #### [facility] [address] [place] [address] Bilirubin.indirect [Mass or moles/Vol] 0.7 mg/dL Normal 0.1-0.9 [facility] Comment on above: Performed By: #### 2 854147 #### [facility] [address] [place] [address] Globulin (S) [Mass/Vol] 2.4 g/dL Normal 1.4-4.0 [facility] Comment on above: Performed By: #### 2 968460 #### [facility] [address] [place] [address] Protein [Mass/Vol] 6.9 g/dL Normal 6.0-7.8 [facility] Comment on above: Performed By: #### 2 108333 #### [facility] [address] [place] [address] Lipase Levelon 10-28-2024 Lipase [Catalytic activity/Vol] 44 U/L Normal 13-58 [facility] Comment on above: Performed By: #### 2 243345 #### [facility] [address] [place] [address] SEROLOGYOrdered By: Dionne peter on 10-28-2024 HCG.beta subunit (U) [Moles/Vol] Negative Normal [facility] Man Sero U BetaHcg Qualon 10-28-2024 HCG.beta subunit (U) [Moles/Vol] Negative [facility] Comment on above: Performed By: #### 2 [id number] #### [facility] [address] [place] [address] UA with Cult Rflxon 10-28-19 25 Bacteria Auto Ql (U) 1+ /HPF Abnormal Trace [facility] Comment on above: Performed By: #### 4 [id number] #### [facility] [address] [place] [address] Bilirubin Ql (U) Negative Normal Negative [facility] Comment on above: Performed By: #### 4 [id number] #### [facility] [address] [place] [address] Calcium oxalate crystals Computer assisted Ql (U) Present Abnormal [facility] Comment on above: Performed By: #### 4 [id number] #### [facility] [address] [place] [address] Clarity (U) Turbid Abnormal Clear [facility] Comment on above: Performed By: #### 4 [id number] #### [facility] [address] [place] [address] Color (U) Yellow Normal Yellow [facility] Comment on above: Result Comment: Micr oscopic readings are only performed on those samples that meet specific criteria set forth by [facility]. Performed By: #### 4 [id number] #### [facility] [address] [place] [address] Epithelial cells.squamous Auto (Urine sed) [#/Area] 0-2 Invalid Interpretation Code [facility] Comment on above: Performed By: #### 4 [id number] #### [facility] [address] [place] [address] Glucose Ql (U) Negative Normal Negative [facility] Comment on above: Performed By: #### 4 [id number] #### [facility] [address] [place] [address] Hemoglobin Auto test strip (U) [Mass/Vol] 3+ mg/dL Abnormal Negative [facility] Comment on above: Performed By: #### 4 [id number] #### [facility] [address] [place] [address] Ketones Auto test strip Ql (U) Negative Normal Negative [facility] Comment on above: Performed By: #### 4 [id number] #### [facility] [address] [place] [address] Leukocyte esterase Auto test strip Ql (U) 75 Shaylee/uL Abnormal Negative [facility] Comment on above: Performed By: #### 4 [id number] #### [facility] [address] [place] [address] Mucus Auto Ql (U) 1+ CD:[id number] Abnormal Negative [facility] Comment on above: Performed By: #### 4 [id number] #### [facility] [address] [place] [address] Nitrite Auto test strip Ql (U) Negative Normal Negative [facility] Comment on above: Performed By: #### 4 [id number] #### [facility] [address] [place] [address] pH (U) 5.5 [pH] Invalid Interpretation Code 5.0-9.0 [facility] Comment on above: Performed By: #### 4 [id number] #### [facility] [address] [place] [address] Protein Ql (U) 1+ mg/dL Abnormal Negative [facility] Comment on above: Performed By: #### 4 [id number] #### [facility] [address] [place] [address] RBC Ql (U) >75 Abnormal 0-3 [facility] Comment on above: Performed By: #### 4 [id number] #### [facility] [address] [place] [address] Specific gravity (U) [Rel density] 1.030 Invalid Interpretation Code 1.005-1.030 [facility] Comment on above: Performed By: #### 4 [id number] #### [facility] [address] [place] [address] Urobilinogen (U) [Mass/Vol] Negative Normal Negative [facility] Comment on above: Performed By: #### 4 [id number] #### [facility] [address] [place] [address] WBC Auto (Urine sed) [#/Area] 16-25 Abnormal 0-5 [facility] Comment on above: Performed By: #### 4 [id number] #### [facility] [address] [place] [address] Type of Urine collection method Clean Catch Normal [facility] Comment on above: Performed By: #### 4 [id number] #### [facility] [address] [place] [id number] URINALYSISOrdered By: SYSTEM SYSTEM on 10-28-2024 Bacteria Auto Ql (U) 1+ /HPF Invalid Interpretation Code Trace/HPF [facility] UA Auto SS Bilirubin Ql (U) Negative Normal Negativemg/dL [facility] UA Auto SS Calcium oxalate crystals Computer assisted Ql (U) Present graded/HPF Invalid Interpretation Code [facility] UA Auto SS Clarity (U) Turbid *ABN* (10/28/24 7:01 AM) Invalid Interpretation Code Clear [facility] UA Auto SS Color (U) Yellow 1 (10/28/24 7:01 AM) Normal Yellow [facility] UA Auto SS Comment on above: Interpretive Data: M icroscopic readings are only performed on those samples that meet specific criteria set forth by [facility]. Epithelial cells.squamous Auto (Urine sed) [...] 75 Shaylee/uL Shaylee/uL Invalid Interpretation Code NegativeLeu/uL [facility] UA Auto SS Mucus Auto Ql (U) 1+ graded/LPF Invalid Interpretation Code Negativegraded/ LPF [facility] UA Auto SS Nitrite Auto test strip Ql (U) Negative Normal Negativemg/dL [facility] UA Auto SS pH (U) 5.5 *NA* (10/28/24 7:01 AM) Invalid Interpretation Code 5.0 - 9.0 [facility] UA Auto SS Protein Ql (U) 1+ mg/dL Invalid Interpretation Code Negativemg/dL [facility] UA Auto SS RBC Ql (U) >75 graded/HPF Invalid Interpretation Code 0-3graded/HPF [facility] UA Auto SS Specific gravity [...] Desc Clean Catch (10/28/24 7:01 AM) Normal [facility] UA Auto SS Work Phone: eGFRon 10-28-2024 eGFR 107 mL/min/1.73 m2 Normal >=59 [facility] Comment on above: Performed By: #### 1 [id number] #### [facility] [address] [place] [address] MRI Breast w/o and w/ Contra st, Bilaton 10-16-2024 MRI Breast w/o and w/ [...] images were generated at the dedicated breast [employer] workstation FINDINGS: Report Both breasts are heterogeneously dense with moderate background parenchymal enhancement. There are no suspicious masses, areas of abnormal masslike enhancement, suspicious lymphadenopathy, or other findings of concern identified. CAD analysis was performed and used in the interpretation. Board Certified Radiologists. Accredited by the ACR and FDA. MAMMOGRAPHY IS VERY IMPORTANT TO YOUR HEALTH. THE CURRENT [employer]LEGE OF RADIOLOGY AND NATIONAL COMPREHENSIVE CANCER [...] 10/16/2024 15:17 EST by Jean-Pierre Serrano MD [facility] C Urineon 10-12-2024 Bacteria identified Cx Nom (U) Microbiology PROCEDURE: Urine Culture [R1] SOURCE: U CleanCatch BODY SITE: COLLECTED DATE/TIME: 10/10/2024 14:04 EST RECEIVED DATE/TIME: 10/10/2024 16:41 EST START DATE/TIME: 10/10/2024 16:41 EST FREE TEXT SOURCE: Cesar MRAQUES, Yessy MARQUES, Yessy Arnett FINAL REPORTS Final Report [] Verified Date/Time: [...] Locations R1: This test was performed at: [facility], [address] [place] [address], [address] , , Normal [facility] Comment on above: Performed By: #### 2 [id number] #### [facility] [address] [place] [address] Ambulatory Visit Summaryon 0 10-10-2024 Ambulatory Visit Summary Ambulatory Visit Summary SHERIE RIZVI :2000 Visit Date:10/10/2024 Ambulatory Visit Instructions Your Diagnosis Pyelonephritis Glucosuria UTI (urinary tract infection) Your Care Team Attending Physician - Cesar MARQUES, Yessy Arnett Primary Care Physician - Wilmar PIERCE, Jenn Mcnamara This Is Your Medications List ciprofloxacin (ciprofloxacin [...] hours Pyelonephritis Duration: 10 Days Pickup at [facility]/pharmacy #6173 New docusate (Colace 100 mg Cap) 1 Capsules By Mouth Every day as needed for for constipation [facility] New phenazopyridine (Pyridium 200 mg Tab) 1 Tablets By Mouth 3 times a day as needed for urinary pain Duration: 3 Days Refills: 1 [facility] Changed polyethylene glycol 3350 (Miralax 3350 17 gram packet) 17 Gram By Mouth Every day [facility] Changed polyethylene glycol 3350 (polyethylene glycol [...] Tablets By Mouth Every day [facility] [address] [place], [place] [id number] [phone] Medications and Immunizations Administered Not Given influenza [...] or n (more content not included)... [facility] CBC w/ Auto Diffon 5 Basophils/100 WBC (Bld) 0.5 % Normal 0.0-2.0 [facility] Comment on above: Performed By: #### 2 [id number] #### [facility] [address] [place] [address] Basophils/Leukocytes Auto (Bld) [Pure # fraction] 0.1 E9/L Normal 0.0-0.2 [facility] Comment on above: Performed By: #### 2 [id number] #### [facility] [address] [place] [address] Eosinophils (Bld) [#/Vol] 0.2 E9/L Normal 0.0-0.5 [facility] Comment on above: Performed By: #### 2 126118 #### [facility] [address] [place] [address] Eosinophils/100 WBC (Bld) 1.5 % Normal 0.0-8.0 [facility] Comment on above: Performed By: #### 2 397351 #### [facility] [address] [place] [address] Erythrocyte distribution width (RBC) [Ratio] 14.0 % Normal 10.9-14.2 [facility] Comment on above: Performed By: #### 2 [id number] #### [facility] [address] [place] [address] Hematocrit (Bld) [Volume fraction] 41.6 % Normal 34.0-46.0 [facility] Comment on above: Performed By: #### 2 107611 #### [facility] [address] [place] [address] Hemoglobin (Bld) [Mass/Vol] 13.8 g/dL Normal 12.0-16.0 [facility] Comment on above: Performed By: #### 2 222607 #### [facility] [address] [place] [address] Lymphocytes (Bld) [#/Vol] 2.7 E9/L Normal 1.0-4.0 [facility] Comment on above: Performed By: #### 2 418293 #### [facility] [address] [place] [address] Lymphocytes/100 WBC (Bld) 20.1 % Normal 14.0-50.0 [facility] Comment on above: Performed By: #### 2 469145 #### [facility] [address] [place] [address] MCH (RBC) [Entitic mass] 28.8 pg Normal 27.0-34.0 [facility] Comment on above: Performed By: #### 2 833385 #### [facility] [address] [place] [address] MCHC (RBC) [Mass/Vol] 33.3 g/dL Normal 31.4-36.0 [facility] Comment on above: Performed By: #### 2 461534 #### [facility] [address] [place] [address] MCV (RBC) [Entitic vol] 86.6 fL Normal 80.0-100.0 [facility] Comment on above: Performed By: #### 2 [id number] #### [facility] [address] [place] [address] Monocytes (Bld) [#/Vol] 0.6 E9/L Normal 0.2-1.0 [facility] Comment on above: Performed By: #### 2 [id number] #### [facility] [address] [place] [address] Neutrophils (Bld) [#/Vol] 9.9 E9/L High 2.0-7.5 [facility] Comment on above: Performed By: #### 2 [id number] #### [facility] [address] [place] [address] Neutrophils/100 WBC (Bld) 73.6 % Normal 36.0-75.0 [facility] Comment on above: Performed By: #### 2 443570 #### [facility] [address] [place] [address] Platelet 369.0 E9/L Normal 150.0-500.0 [facility] Comment on above: Performed By: #### 2 764002 #### [facility] [address] [place] [address] Platelet mean volume (Bld) [Entitic vol] 8.6 fL Normal 6.4-10.8 [facility] Comment on above: Performed By: #### 2 371779 #### [facility] [address] [place] [address] RBC (Bld) [#/Vol] 4.8 E12/L Normal 4.3-5.9 [facility] Comment on above: Performed By: #### 2 232203 #### [facility] [address] [place] [address] WBC corrected for nucl RBC Auto (Bld) [#/Vol] 13.5 E9/L High 4.0-11.0 [facility] Comment on above: Performed By: #### 2 042330 #### [facility] [address] [place] [address] CHEMISTRYOrdered By: SYSTEM SYSTEM on 10-10-2024 Albumin [...] 10-10-2024 Albumin [Mass/Vol] 4.7 g/dL Normal 3.3-5.0 [facility] Comment on above: Performed By: #### 2 150889 #### [facility] [address] [place] [address] Albumin/Globulin (S) [Mass conc ratio] 1.7 Normal 1.1-2.2 [facility] Comment on above: Performed By: #### 2 [id number] #### [facility] [address] [place] [address] ALP [Catalytic activity/Vol] 68 Int._Unit/L Normal 21-98 [facility] Comment on above: Performed By: #### 2 593454 #### [facility] [address] [place] [address] ALT No additional P-5'-P [Catalytic activity/Vol] 14 Int._Unit/L Normal 6-46 [facility] Comment on above: Performed By: #### 2 631941 #### [facility] [address] [place] [address] Anion gap [Moles/Vol] 11 mmol/L Normal 6-16 [facility] Comment on above: Performed By: #### 2 546208 #### [facility] [address] [place] [address] AST [Catalytic activity/Vol] 16 Int._Unit/L Normal 5-43 [facility] Comment on above: Performed By: #### 2 173369 #### [facility] [address] [place] [address] Bilirubin [Mass/Vol] 1.2 mg/dL High 0.0-1.1 [facility] Comment on above: Performed By: #### 2 145316 #### [facility] [address] [place] [address] Calcium [Mass/Vol] 9.9 mg/dL Normal 8.9-11.1 [facility] Comment on above: Performed By: #### 2 450288 #### [facility] [address] [place] [address] Chloride [Moles/Vol] 105 mmol/L Normal 101-111 [facility] Comment on above: Performed By: #### 2 032346 #### [facility] [address] [place] [address] CO2 [Moles/Vol] 26 mmol/L Normal 21-31 [facility] Comment on above: Performed By: #### 2 487341 #### [facility] [address] [place] [address] Creatinine [Mass/Vol] 0.8 mg/dL Normal 0.5-1.3 [facility] Comment on above: Performed By: #### 2 798791 #### [facility] [address] [place] [address] Globulin (S) [Mass/Vol] 2.8 g/dL Normal 1.4-4.0 [facility] Comment on above: Performed By: #### 2 527905 #### [facility] [address] [place] [address] Glucose [Mass/Vol] 95 mg/dL Normal 55-199 [facility] Comment on above: Performed By: #### 2 149003 #### [facility] [address] [place] [address] Potassium [Moles/Vol] 4.0 mmol/L Normal 3.5-5.3 [facility] Comment on above: Performed By: #### 2 655808 #### [facility] [address] [place] [address] Protein [Mass/Vol] 7.5 g/dL Normal 6.0-7.8 [facility] Comment on above: Performed By: #### 2 317666 #### [facility] [address] [place] [address] Sodium [Moles/Vol] 138 mmol/L Normal 135-145 [facility] Comment on above: Performed By: #### 2 784102 #### [facility] [address] [place] [address] Urea nitrogen [Mass/Vol] 12 mg/dL Normal 5-21 [facility] Comment on above: Performed By: #### 2 766545 #### [facility] [address] [place] [address] Urea nitrogen/Creatinine [Mass ratio] 15 No Units Normal 10-20 [facility] Comment on above: Performed By: #### 2 280981 #### [facility] [address] [place] [address] Family Medicine Office/Clini c Noteon 10-10-2024 Family [...] had a CAT scan. 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 Previous lab work reviewed she is been [...] day(s), # 20 tab(s), Refills(s) 0, Pharmacy: [facility]/pharmacy #[id number], 158, cm, 10/10/24 13:53:00 [...] constipation, # 100 cap(s), Refills(s) 0, Pharmacy: [facility]/pharmacy #[id number], 158, cm, 10/10/24 13:53:00 EST, Height/Length Dosing, 63.1, kg, 10/10/24 13:53:00 EST, Weight Dosing phenazopyridine, 200 mg = 1 tab(s), Oral, TID, PRN urinary pain, X 3 day(s), # 9 tab(s), Refills(s) 1, Pharmacy (more content not included)... Normal [facility] Comment on above: Result Comment: Elec [...] 10-10-2024 eGFR 107 mL/min/1.73 m2 Normal >=59 [facility] Comment on above: Performed By: #### 1 [id number] #### [facility] [address] [place] [address] BMPon 07-29-2024 Anion gap [Moles/Vol] 10 mmol/L Normal 6-16 [facility] Comment on above: Performed By: #### 2 610670 #### [facility] [address] [place] [address] Calcium [Mass/Vol] 9.6 mg/dL Normal 8.9-11.1 [facility] Comment on above: Performed By: #### 2 164491 #### [facility] [address] [place] [address] Chloride [Moles/Vol] 105 mmol/L Normal 101-111 [facility] Comment on above: Performed By: #### 2 722784 #### [facility] [address] [place] [address] CO2 [Moles/Vol] 26 mmol/L Normal 21-31 [facility] Comment on above: Performed By: #### 2 927391 #### [facility] [address] [place] [address] Creatinine [Mass/Vol] 0.9 mg/dL Normal 0.5-1.3 [facility] Comment on above: Performed By: #### 2 239912 #### [facility] [address] [place] [address] Glucose [Mass/Vol] 114 mg/dL Normal 55-199 [facility] Comment on above: Performed By: #### 2 854011 #### [facility] [address] [place] [address] Potassium [Moles/Vol] 3.9 mmol/L Normal 3.5-5.3 [facility] Comment on above: Performed By: #### 2 610892 #### [facility] [address] [place] [address] Sodium [Moles/Vol] 137 mmol/L Normal 135-145 [facility] Comment on above: Performed By: #### 2 092691 #### [facility] [address] [place] [address] Urea nitrogen [Mass/Vol] 15 mg/dL Normal 5-21 [facility] Comment on above: Performed By: #### 2 835488 #### [facility] [address] [place] [address] Urea nitrogen/Creatinine [Mass ratio] 17 No Units Normal 10-20 [facility] Comment on above: Performed By: #### 2 451209 #### [facility] [address] [place] [address] CBC w/ Auto Diffon 4 Basophils/100 WBC (Bld) 0.4 % Normal 0.0-2.0 [facility] Comment on above: Performed By: #### 2 783573 #### [facility] [address] [place] [address] Basophils/Leukocytes Auto (Bld) [Pure # fraction] 0.1 E9/L Normal 0.0-0.2 [facility] Comment on above: Performed By: #### 2 271634 #### [facility] [address] [place] [address] Eosinophils (Bld) [#/Vol] 0.1 E9/L Normal 0.0-0.5 [facility] Comment on above: Performed By: #### 2 130392 #### [facility] [address] [place] [address] Eosinophils/100 WBC (Bld) 0.9 % Normal 0.0-8.0 [facility] Comment on above: Performed By: #### 2 637267 #### [facility] [address] [place] [address] Erythrocyte distribution width (RBC) [Ratio] 14.6 % High 10.9-14.2 [facility] Comment on above: Performed By: #### 2 059752 #### [facility] [address] [place] [address] Hematocrit (Bld) [Volume fraction] 40.2 % Normal 34.0-46.0 [facility] Comment on above: Performed By: #### 2 328255 #### [facility] [address] [place] [address] Hemoglobin (Bld) [Mass/Vol] 13.4 g/dL Normal 12.0-16.0 [facility] Comment on above: Performed By: #### 2 672865 #### [facility] [address] [place] [address] Lymphocytes (Bld) [#/Vol] 1.9 E9/L Normal 1.0-4.0 [facility] Comment on above: Performed By: #### 2 422385 #### [facility] [address] [place] [address] Lymphocytes/100 WBC (Bld) 15.0 % Normal 14.0-50.0 [facility] Comment on above: Performed By: #### 2 253604 #### [facility] [address] [place] [address] MCH (RBC) [Entitic mass] 28.5 pg Normal 27.0-34.0 [facility] Comment on above: Performed By: #### 2 627201 #### [facility] [address] [place] [address] MCHC (RBC) [Mass/Vol] 33.3 g/dL Normal 31.4-36.0 [facility] Comment on above: Performed By: #### 2 375025 #### [facility] [address] [place] [address] MCV (RBC) [Entitic vol] 85.5 fL Normal 80.0-100.0 [facility] Comment on above: Performed By: #### 2 725427 #### [facility] [address] [place] [address] Monocytes (Bld) [#/Vol] 0.6 E9/L Normal 0.2-1.0 [facility] Comment on above: Performed By: #### 2 960520 #### [facility] [address] [place] [address] Neutrophils (Bld) [#/Vol] 10.1 E9/L High 2.0-7.5 [facility] Comment on above: Performed By: #### 2 869106 #### [facility] [address] [place] [address] Neutrophils/100 WBC (Bld) 78.8 % High 36.0-75.0 [facility] Comment on above: Performed By: #### 2 194949 #### [facility] [address] [place] [address] Platelet 335.0 E9/L Normal 150.0-500.0 [facility] Comment on above: Performed By: #### 2 698256 #### [facility] [address] [place] [address] Platelet mean volume (Bld) [Entitic vol] 8.0 fL Normal 6.4-10.8 [facility] Comment on above: Performed By: #### 2 010693 #### [facility] [address] [place] [address] RBC (Bld) [#/Vol] 4.7 E12/L Normal 4.3-5.9 [facility] Comment on above: Performed By: #### 2 877972 #### [facility] [address] [place] [address] WBC corrected for nucl RBC Auto (Bld) [#/Vol] 12.9 E9/L High 4.0-11.0 [facility] Comment on above: Performed By: #### 2 090568 #### [facility] [address] [place] [address] CHEMISTRYOrdered By: SYSTEM SYSTEM on 07-29-2024 Albumin [...] 2023 ED Clinical Summary ED Clinical Summary [place] [id number] ED Clinical Summary Person Information Name: SHERIE RIZVI He/[facility] Age: 24 Years : 2000 Sex: Female Language: Comoran PCP: Jenn Urban MD Marital Status: Single [...] 07/29/2024 06:56:07 07/29/2024 06:56:07 07/29/2024 06:56:07 ADDRESS: [address] [id number] PHYS DOC NOTES: MEDICAL INFORMATION: Prescriptions Given: New Medications [id number], [address] [place], [place] [id number], [phone] ondansetron (Zofran ODT 4 mg Tab-Dis) 1 [...] Follow up: With: Address: When: Jenn Urban [address] [place] [address]., [address] [place] [address] Business (1) In 3 days DIAGNOSIS: Epigastric abdominal pain Normal [facility] ED Note-Physicianon 07-29-20 ED Note-Physician ED Note-Physician [...] and Complexity of Problems Differential Diagnosis: [] [facility] Data External documents reviewed: N/A My EKG [...] Nausea/Vomiting, # 16 tab(s), Refills(s) 0, Pharmacy: [facility]/pharmacy #[id number], 158, cm, 07/29/24 6:03:00 EST, Height/Length Dosing, 64.6, kg, 07/29/24 6:03:00 EST, Weight Dosing pantoprazole, 20 mg = 1 tab(s), Oral, Daily, X 14 day(s), # 14 tab(s), Refills(s) 0, Pharmacy: [facility]/pharmacy #[id number], 158, cm, 07/29/24 6:03:00 EST, Height/Length Dosing, 64.6, kg, 07/29/24 6:03:00 EST, Weight Dosing sucralfate, 1 gm = 1 tab(s), Oral, QID, X 10 day(s), # 40 tab(s), Refills(s) 0, Pharmacy: [facility]/pharmacy #[id number], 158, cm, 07/29/24 6:03:00 [...] 3 days (more content not included)... Normal [facility] Comment on above: Result Comment: Elec tronically Signed By: Jose Wilkinson DO\.br\Date and Time Signed: 07/29/24 06:52 EST ED Patient Summaryon 024 ED Patient Summary ED Patient Summary [place] [id number] Patient Discharge Instructions Person Information Name: PIPER RIZVIH Mary Age: 24 Years Arrival Date: 07/29/2024 05:51:54 Discharge Diagnosis: Epigastric abdominal pain Primary Care Physician: Jenn Urban MD Provider Information Primary Provider: Jose Wilkinson DO Advanced Process Control Specialist:None The exam and treatment you received in the Emergency Department were for an urgent problem and are not intended as complete care. It is important that you follow up with a doctor, nurse practitioner, or physician???s hospital clinic assistant for ongoing care. If your symptoms [...] Follow-up Instructions: With: Address: When: Jenn Urban [address] [place] [address] Av[address] [place] [address] Business (1) In 3 days In the event that this physician does not participate in your insurance network, please consult with your insurance company to find a nearby participating provider. Patient Education Materials: Abdominal Pain, Adult A MESSAGE TO ALL PATIENTS REGARDING OPIOIDS PRESCRIPTION OPIOIDS: WHAT YOU NEED TO KNOW Prescription opioids can be used to help relieve muaxwsgz-xa-mntqmu pain and are often prescribed following a [...] struggling with addiction, tell your health healthcare economics manager and ask (more content not included)... Normal [facility] Extra Blueon 07-29-2024 Tube Collected Plasma Yes Invalid Interpretation Code [facility] Comment on above: Performed By: #### 1 [id number] #### [facility] [address] [place] [address] HEMATOLOGYOrdered By: SYSTEM SYSTEM on 07-29-2024 Basophils/100 [...] 07-29-2024 Albumin [Mass/Vol] 4.3 g/dL Normal 3.3-5.0 [facility] Comment on above: Performed By: #### 2 536899 #### [facility] [address] [place] [address] Albumin/Globulin (S) [Mass conc ratio] 1.4 Normal 1.1-2.2 [facility] Comment on above: Performed By: #### 2 318992 #### [facility] [address] [place] [address] ALP [Catalytic activity/Vol] 77 Int._Unit/L Normal 21-98 [facility] Comment on above: Performed By: #### 2 531467 #### [facility] [address] [place] [address] ALT No additional P-5'-P [Catalytic activity/Vol] 9 Int._Unit/L Normal 6-46 [facility] Comment on above: Performed By: #### 2 358689 #### [facility] [address] [place] [address] AST [Catalytic activity/Vol] 12 Int._Unit/L Normal 5-43 [facility] Comment on above: Performed By: #### 2 748353 #### [facility] [address] [place] [address] Bilirubin [Mass/Vol] 1.0 mg/dL Normal 0.0-1.1 [facility] Comment on above: Performed By: #### 2 428325 #### [facility] [address] [place] [address] Bilirubin.direct [Mass/Vol] 0.2 mg/dL Normal 0.0-0.4 [facility] Comment on above: Performed By: #### 2 028639 #### [facility] [address] [place] [address] Bilirubin.indirect [Mass or moles/Vol] 0.8 mg/dL Normal 0.1-0.9 [facility] Comment on above: Performed By: #### 2 250819 #### [facility] [address] [place] [address] Globulin (S) [Mass/Vol] 3.0 g/dL Normal 1.4-4.0 [facility] Comment on above: Performed By: #### 2 326210 #### [facility] [address] [place] [address] Protein [Mass/Vol] 7.3 g/dL Normal 6.0-7.8 [facility] Comment on above: Performed By: #### 2 048501 #### [facility] [address] [place] [address] Lipase Levelon 07-29-2024 Lipase [Catalytic activity/Vol] 48 U/L Normal 13-58 [facility] Comment on above: Performed By: #### 2 610864 #### [facility] [address] [place] [id number] SEROLOGYOrdered By: Haley Cruz on 07-29-2024 HCG.beta subunit (U) [Moles/Vol] Negative Normal [facility] Man Sero U BetaHcg Qualon 07-29-2024 HCG.beta subunit (U) [Moles/Vol] Negative Normal [facility] Comment on above: Performed By: #### 2 [id number] #### [facility] [address] [place] [address] UA with Cult [employer]xon 07-29-20 24 Bilirubin Ql (U) 1+ mg/dL Abnormal Negative [facility] Comment on above: Performed By: #### 4 [id number] #### [facility] [address] [place] [address] Clarity (U) SL CLOUDY Invalid Interpretation Code [facility] Comment on above: Performed By: #### 4 [id number] #### [facility] [address] [place] [address] Color (U) YELLOW Normal Yellow [facility] Comment on above: Performed By: #### 4 [id number] #### [facility] [address] [place] [address] Crystals.amorphous Computer assisted Ql (U) Present Abnormal [facility] Comment on above: Performed By: #### 4 [id number] #### [facility] [address] [place] [address] Epithelial cells.squamous Auto (Urine sed) [#/Area] 0-2 Normal [facility] Comment on above: Performed By: #### 4 [id number] #### [facility] [address] [place] [address] Glucose Ql (U) Negative Normal Negative [facility] Comment on above: Performed By: #### 4 [id number] #### [facility] [address] [place] [address] Hemoglobin Auto test strip (U) [Mass/Vol] Negative Normal Negative [facility] Comment on above: Performed By: #### 4 [id number] #### [facility] [address] [place] [address] Ketones Ql (U) TRACE Abnormal Negative [facility] Comment on above: Performed By: #### 4 [id number] #### [facility] [address] [place] [address] Leukocyte esterase Auto test strip Ql (U) Negative Normal Negative [facility] Comment on above: Performed By: #### 4 [id number] #### [facility] [address] [place] [address] Nitrite Auto test strip Ql (U) Negative Normal Negative [facility] Comment on above: Performed By: #### 4 [id number] #### [facility] [address] [place] [address] pH (U) 6.0 [pH] Invalid Interpretation Code 5.0-9.0 [facility] Comment on above: Performed By: #### 4 [id number] #### [facility] [address] [place] [address] Protein Ql (U) TRACE Abnormal Negative [facility] Comment on above: Performed By: #### 4 [id number] #### [facility] [address] [place] [address] RBC Ql (U) 0-3 Normal 0-3 [facility] Comment on above: Performed By: #### 4 [id number] #### [facility] [address] [place] [address] Specific gravity (U) [Rel density] >=1.030 Invalid Interpretation Code 1.005-1.030 [facility] Comment on above: Performed By: #### 4 [id number] #### [facility] [address] [place] [address] Urobilinogen Qn (U) 1.0 Normal 0.0-1.0 [facility] Comment on above: Performed By: #### 4 [id number] #### [facility] [address] [place] 3[address]157 WBC Auto (Urine sed) [#/Area] 0-5 Normal 0-5 [facility] Comment on above: Performed By: #### 4 [id number] #### [facility] [address] [place] [address] Type of Urine collection method Clean Catch Normal [facility] Comment on above: Performed By: #### 4 [id number] #### [facility] [address] [place] [address] URINALYSISOrdered By: Lionel Cruz on 07-29-2024 Bilirubin Ql (U) 1+ mg/dL Invalid Interpretation Code Negativemg/dL [facility] UA Auto SS Clarity (U) SL CLOUDY Invalid Interpretation Code [facility] UA Auto SS Color (U) Yellow (07/29/24 6:08 AM) Normal Yellow [facility] UA Auto SS Crystals.amorphous Computer assisted Ql (U) Present graded/HPF Invalid Interpretation Code [facility] UA Auto SS Epithelial cells.squamous Auto (Urine sed) [#/Area] 0-2 graded/HPF Normal [facility] UA Aut o SS Glucose Ql (U) Negative (07/29/24 6:08 AM) Normal Negative [facility] UA Auto SS Hemoglobin Auto test strip (U) [Mass/Vol] Negative (07/29/24 6:08 AM) Normal Negative [facility] UA Auto SS Ketones Ql (U) Trace [...] Desc Clean Catch (07/29/24 6:08 AM) Normal [facility] UA Auto SS eGFRon 07-29-2024 eGFR 93 mL/min/1.73 m2 Normal >=59 [facility] Comment on above: Performed By: #### 1 [id number] #### [facility] [address] [place] [address] 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 Typing was confirmed by monoclonal antibody microscopic immunofluorescence. 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 Typing was confirmed by monoclonal antibody microscopic immunofluorescence. Performed at: [address] [id number] PhD Yo Zamora Performed By: #### 1 [id number] #### [facility] [address] [place] [address] Chlam/GC/Trich,NAAon 024 C. trachomatis rRNA JERMAINE+probe Ql (Unsp spec) Negative Invalid Interpretation Code Negative [facility] Comment on above: Performed By: #### 1 [id number] #### [facility] [address] [place] [address] N. gonorrhoeae rRNA JERMAINE+probe Ql (Unsp spec) Negative Invalid Interpretation Code Negative [facility] Comment on above: Performed By: #### 1 [id number] #### [facility] [address] [place] [address] T. vaginalis rRNA JERMAINE+probe Ql (Unsp spec) Negative Invalid Interpretation Code Negative [facility] Comment on above: Result Comment: Perf ormed at: [facility] [address] BRENT Ayala [id number] MD Marck Barakat Performed By: #### 1 [id number] #### [facility] [address] [place] [address] C Urineon 06-30-2024 Bacteria identified Cx Nom [...] Locations R1: This test was performed at: [facility], [address] [place] [address], [address]- , , Normal [facility] Comment on above: Performed By: #### 2 [id number] #### [facility] [address] [place] [address] ED Note-Physicianon 06-29-20 ED Note-Physician ED Note-Physician [...] day(s), # 14 cap(s), Refills(s) 0, [id number], 158, cm, 06/28/24 14:54:00 EDT, [...] Urban In 3 days 07/01/[address] [place] [address]- Business (1) Additional Instructions: Patient Education Urinary [...] (06/28/24 15:08:00 (more content not included)... Normal [facility] Comment on above: Result Comment: Elec tronically Signed By: Toan Santo PA-C\.br\Date and Time Signed: 06/28/24 17:19 EDT\.br\Electronically Co-Signed By: Luís Greenfield DO\.br\Date and Time Co-Signed: 06/29/24 07:13 EDT ED Clinical Summaryon 2023 ED Clinical Summary ED Clinical Summary [place] [id number] ED Clinical Summary Person Information Name: SHERIE RIZVI He/[facility] Age: 24 Years : 2000 Sex: Female Language: Comoran PCP: Jenn Urban MD Marital Status: Single [...] 06/28/2024 17:23:49 06/28/2024 17:23:49 06/28/2024 17:23:49 ADDRESS: [address] [id number] PHYS DOC NOTES: MEDICAL INFORMATION: Prescriptions Given: New Medications [facility]/pharmacy #[id number], [address] [place], [place] [id number], [phone] lidocaine topical (lidocaine Top 2% Gel 5 [...] Follow up: With: Address: When: Jenn Urban [address] [place] [address], [address] [place] [phone] Business (1) In 3 days 07/01/2024 DIAGNOSIS: 1:UTI (urinary tract infection), bacterial; Bacterial infection, unspecified; Vulvovaginal rash [facility] ED Patient Summaryon 024 ED Patient Summary ED Patient Summary [address] [address] Patient Discharge Instructions Person Information Name: SHERIE RIZVI Age: 24 Years Arrival Date: 06/28/2024 14:46:44 Discharge Diagnosis: 1:UTI (urinary tract infection), bacterial; Bacterial infection, unspecified; Vulvovaginal rash Primary Care Physician: Jenn Urban MD Provider Information Primary Provider: Luís Greenfield DO Advanced Process Control Specialist:Toan Santo PA-C The exam and treatment you received in the Emergency Department were for an urgent problem and are not intended as complete care. It is important that you follow up with a doctor, nurse practitioner, or physician???s hospital clinic assistant for ongoing care. If your symptoms [...] Instructions: With: Address: When: Jenn Urban [address] [facility] [address] [place], [place] [id number] Business (1) In 3 days 07/01/2024 In the event that this physician does not participate in your insurance network, please consult with your insurance company to find a nearby participating provider. Patient Education Materials: Urinary Tract Infection, Adult A MESSAGE TO ALL PATIENTS REGARDING OPIOIDS PRESCRIPTION OPIOIDS: WHAT YOU NEED TO KNOW Prescription opioids can be used to help relieve qdagmbxg-le-dzwafu pain and are often prescribed following a [...] and overdose (more content not included)... [facility] Reference Laboratory Testing Ordered By: Toan Santo on 06-28-2024 Viral Cult Spec Source Vaginal Invalid Interpretation Code [facility] Send[employer] Work Phone: SEROLOGYOrdered By: Jalyn sosa on 06-28-2024 HCG.beta subunit (U) [Moles/Vol] Negative Normal [facility] Man Sero U BetaHcg Qualon 06-28-2024 HCG.beta subunit (U) [Moles/Vol] Negative [facility] Comment on above: Performed By: #### 2 [id number] #### [facility] [address] [place] [address] UA with Cult Rflxon 06-28-20 24 Bacteria Auto Ql (U) Trace Normal Trace [facility] Comment on above: Performed By: #### 4 [id number] #### [facility] [address] [place] [address] Bilirubin Ql (U) Negative Normal Negative [facility] Comment on above: Performed By: #### 4 [id number] #### [facility] [address] [place] [address] Clarity (U) Turbid Abnormal Clear [facility] Comment on above: Performed By: #### 4 [id number] #### [facility] [address] [place] [address] Color (U) Yellow Normal Yellow [facility] Comment on above: Result Comment: Micr oscopic readings are only performed on those samples that meet specific criteria set forth by [facility]. Performed By: #### 4 [id number] #### [facility] [address] [place] [address] Epithelial cells.squamous Auto (Urine sed) [#/Area] >10 Invalid Interpretation Code [facility] Comment on above: Performed By: #### 4 [id number] #### [facility] [address] [place] [address] Glucose Ql (U) Negative Normal Negative [facility] Comment on above: Performed By: #### 4 [id number] #### [facility] [address] [place] [address] Hemoglobin Auto test strip (U) [Mass/Vol] 1+ mg/dL Abnormal Negative [facility] Comment on above: Performed By: #### 4 [id number] #### [facility] [address] [place] [address] Ketones Auto test strip Ql (U) Negative Normal Negative [facility] Comment on above: Performed By: #### 4 [id number] #### [facility] [address] [place] [address] Leukocyte esterase Auto test strip Ql (U) 250 Shaylee/uL Abnormal Negative [facility] Comment on above: Performed By: #### 4 [id number] #### [facility] [address] [place] [address] Mucus Auto Ql (U) Trace Normal Negative [facility] Comment on above: Performed By: #### 4 [id number] #### [facility] [address] [place] [address] Nitrite Auto test strip Ql (U) Negative Normal Negative [facility] Comment on above: Performed By: #### 4 [id number] #### [facility] [address] [place] [address] pH (U) 6.0 [pH] Invalid Interpretation Code 5.0-9.0 [facility] Comment on above: Performed By: #### 4 [id number] #### [facility] [address] [place] [address] Protein Ql (U) Trace Abnormal Negative [facility] Comment on above: Performed By: #### 4 [id number] #### [facility] [address] [place] [address] RBC Ql (U) 4-20 Abnormal 0-3 [facility] Comment on above: Performed By: #### 4 [id number] #### [facility] [address] [place] [address] Specific gravity (U) [Rel density] 1.026 Invalid Interpretation Code 1.005-1.030 [facility] Comment on above: Performed By: #### 4 [id number] #### [facility] [address] [place] [address] Urobilinogen (U) [Mass/Vol] Negative Normal Negative [facility] Comment on above: Performed By: #### 4 [id number] #### [facility] [address] [place] [address] WBC Auto (Urine sed) [#/Area] 16-25 Abnormal 0-5 [facility] Comment on above: Performed By: #### 4 [id number] #### [facility] [address] [place] [address] Type of Urine collection method Clean Catch [facility] Comment on above: Performed By: #### 4 [id number] #### [facility] [address] [place] [address] URINALYSISOrdered By: SYSTEM SYSTEM on 06-28-2024 Bacteria [...] that meet specific criteria set forth by [facility]. Epithelial cells.squamous Auto (Urine sed) [...] Negativemg/dL [facility] UA Auto SS pH (U) 6.0 *NA* (06/28/24 3:08 PM) Invalid Interpretation Code 5.0 - 9.0 [facility] UA Auto SS Protein Ql (U) Trace mg/dL Invalid Interpretation Code Negativemg/dL [facility] UA Auto SS RBC Ql (U) 4-20 graded/HPF Invalid Interpretation Code 0-3graded/HPF [facility] UA Auto SS Specific gravity (U) [Rel density] 1.026 *NA* (06/28/24 3:08 PM) Invalid Interpretation Code 1.005 - 1.030 [facility] UA Auto SS Urobilinogen (U) [Mass/Vol] Negative Normal Negativemg/dL [facility] UA Auto SS WBC Auto (Urine sed) [#/Area] 16-25 graded/HPF Invalid Interpretation Code 0-5graded/HPF [facility] UA Auto SS URINALYSISOrdered By: Toan Santo on 06-28-2024 UA Spec Desc Clean Catch (06/28/24 3:08 PM) Normal [facility] UA Auto SS Work Phone: Viral Cult, Generalon 2023 Viral Cult Spec Source Vaginal Invalid Interpretation Code [facility] Comment on above: Performed By: #### 1 [id number] #### [facility] [address] [place] [address] ED Note-Physicianon 06-17-20 ED Note-Physician ED Note-Physician [...] fever, chills, nausea or vomiting. She tried tsgw-jhv-ygxwnhx Gas-X and Tums without much relief. No [...] 300 mL, Refill(s) 0, may repeat in, [facility]/pharmacy #[id number], 157.4, cm, 06/11/24 10:45:00 EDT, Height/Length Dosing, 65.8, kg, 06/11/24 10:45:00 EDT, Weight Dosing nitrofurantoin, 100 mg = 1 cap(s), Oral, BID, X 7 day(s), # 14 cap(s), Refills(s) 0, Pharmacy: [facility]/pharmacy #6173, 157.4, cm, 06/11/24 10:45:00 EDT, Height/Length Dosing, 65.8, kg, 06/11/24 10:45:00 EDT, Weight Dosing polyethylene glycol 3350, 17 gram, Oral, Daily, dissolve in water before taking, # 255 gram, Refills(s) 0, Pharmacy: [facility]/pharmacy #6173, 157.4, cm, 06/11/24 10:45:00 [...] Daily Follow-up With When Contact Information Jenn Urban In 3 days 06/14/2024 EDT [address] [place] [address]- Business (1) Additional Instructions: Patient Education Urinary [...] made to ensure accuracy, however, inadvertently computerized boat builder and repairer mistakes may be present. Appropriate healthcare PPE [...] Social His (more content not included)... [facility] Comment on above: Result Comment: Elec [...] DATE/TIME: 06/11/2024 12:31 EDT FREE TEXT SOURCE: Hansa MAXWELL, Toan Santo PA-C, Toan FINAL REPORTS Final Report [] [...] Locations R1: This test was performed at: [facility], [address] [place] [address], [address] , [place], [facility] Comment on above: Performed By: #### 2 [id number] #### [facility] [address] [place] [address] ED Clinical Summaryon 2023 ED Clinical Summary ED Clinical Summary [address] [address] ED Clinical Summary Person Information Name: SHERIE RIZVI He/[facility] Age: 23 Years : 2000 Sex: Female Language: Comoran PCP: Jenn Urban MD Marital Status: Single [...] 06/11/2024 12:23:12 06/11/2024 12:23:12 06/11/2024 12:23:12 ADDRESS: [address] [id number] PHYS DOC NOTES: MEDICAL INFORMATION: Prescriptions Given: New Medications [id number], [address] [place], [place] [id number], [phone] magnesium citrate (magnesium citrate 8.85% Oral Liq [...] Follow up: With: Address: When: Jenn Urban [address] [place] [address], [address] [place] [address] Business (1) In 3 days 06/14/2024 DIAGNOSIS: Constipation; UTI (urinary tract infection) [facility] ED Patient Summaryon 024 ED Patient Summary ED Patient Summary [address] [address] Patient Discharge Instructions Person Information Name: SHERIE RIZVI Age: 23 Years Arrival Date: 06/11/2024 10:35:30 Discharge Diagnosis: Constipation; UTI (urinary tract infection) Primary Care Physician: Jenn Urban MD Provider Information Primary Provider: Luís Greenfield DO Advanced Process Control Specialist:Toan Santo PA-C The exam and treatment you received in the Emergency Department were for an urgent problem and are not intended as complete care. It is important that you follow up with a doctor, nurse practitioner, or physician?s hospital clinic assistant for ongoing care. If your symptoms [...] Instructions: With: Address: When: Jenn Urban [address] [facility] [place] [address] Business (1) In 3 days 06/14/2024 In the event that this physician does not participate in your insurance network, please consult with your insurance company to find a nearby participating provider. Patient Education Materials: Urinary Tract Infection, Adult; Constipation, Adult A MESSAGE TO ALL PATIENTS REGARDING OPIOIDS PRESCRIPTION OPIOIDS: WHAT YOU NEED TO KNOW Prescription opioids can be used to help relieve vepgiijt-qn-omztxk pain and are often prescribed following a [...] struggling with addiction, tell your health healthcare economics manager and ask (more content not included)... [facility] SEROLOGYOrdered By: Lili Guerrero on 06-11-2024 HCG.beta subunit (U) [Moles/Vol] Negative Normal [facility] Man Sero U BetaHcg Qualon 06-11-2024 HCG.beta subunit (U) [Moles/Vol] Negative [facility] Comment on above: Performed By: #### 2 [id number] #### [facility] [address] [place] [address] UA with Cult Rflxon 06-11-20 24 Bacteria Auto Ql (U) Trace Normal Trace [facility] Comment on above: Performed By: #### 4 [id number] #### [facility] [address] [place] [address] Bilirubin Ql (U) Negative Normal Negative [facility] Comment on above: Performed By: #### 4 [id number] #### [facility] [address] [place] [address] Clarity (U) Clear Normal Clear [facility] Comment on above: Performed By: #### 4 [id number] #### [facility] [address] [place] [address] Color (U) Light-Yellow Normal Yellow [facility] Comment on above: Result Comment: Micr oscopic readings are only performed on those samples that meet specific criteria set forth by [facility]. Performed By: #### 4 [id number] #### [facility] [address] [place] [address] Epithelial cells.squamous Auto (Urine sed) [#/Area] 5-8 Invalid Interpretation Code [facility] Comment on above: Performed By: #### 4 [id number] #### [facility] [address] [place] [address] Glucose Ql (U) Negative Normal Negative [facility] Comment on above: Performed By: #### 4 [id number] #### [facility] [address] [place] [address] Hemoglobin Auto test strip (U) [Mass/Vol] Negative Normal Negative [facility] Comment on above: Performed By: #### 4 [id number] #### [facility] [address] [place] [address] Ketones Auto test strip Ql (U) Negative Normal Negative [facility] Comment on above: Performed By: #### 4 [id number] #### [facility] [address] [place] [address] Leukocyte esterase Auto test strip Ql (U) 25 Shaylee/uL Normal Negative [facility] Comment on above: Performed By: #### 4 [id number] #### [facility] [address] [place] [address] Mucus Auto Ql (U) Negative Normal Negative [facility] Comment on above: Performed By: #### 4 [id number] #### [facility] [address] [place] [address] Nitrite Auto test strip Ql (U) Negative Normal Negative [facility] Comment on above: Performed By: #### 4 [id number] #### [facility] [address] [place] [address] pH (U) 6.5 [pH] Invalid Interpretation Code 5.0-9.0 [facility] Comment on above: Performed By: #### 4 [id number] #### [facility] [address] [place] [address] Protein Ql (U) Negative Normal Negative [facility] Comment on above: Performed By: #### 4 [id number] #### [facility] [address] [place] [address] RBC Ql (U) 0-3 Normal 0-3 [facility] Comment on above: Performed By: #### 4 [id number] #### [facility] [address] [place] [address] Specific gravity (U) [Rel density] 1.014 Invalid Interpretation Code 1.005-1.030 [facility] Comment on above: Performed By: #### 4 [id number] #### [facility] [address] [place] [address] Urobilinogen (U) [Mass/Vol] Negative Normal Negative [facility] Comment on above: Performed By: #### 4 [id number] #### [facility] [address] [place] [address] WBC Auto (Urine sed) [#/Area] 6-15 Abnormal 0-5 [facility] Comment on above: Performed By: #### 4 [id number] #### [facility] [address] [place] [address] Type of Urine collection method Clean Catch [facility] Comment on above: Performed By: #### 4 [id number] #### [facility] [address] [facility] [place] [facility] [place] [address] URINALYSISOrdered By: SYSTEM SYSTEM on 06-11-2024 Bacteria Auto Ql (U) Trace /HPF Normal Trace/HPF [facility] UA Auto SS Bilirubin Ql (U) Negative Normal Negativemg/dL [facility] UA Auto SS Clarity (U) Clear (06/11/24 10:51 AM) Normal Clear [facility] UA Auto SS Color (U) Light-Yellow 1 (06/11/24 10:51 AM) Normal Yellow [facility] UA Auto SS Comment on above: Interpretive Data: M icroscopic readings are only performed on those samples that meet specific criteria set forth by [facility]. Epithelial cells.squamous Auto (Urine sed) [...] SS Protein Ql (U) Negative Normal Negativemg/dL [facility] UA Auto SS RBC Ql (U) 0-3 graded/HPF Normal 0-3graded/HPF [facility] UA Auto SS Specific gravity (U) [Rel density] 1.014 *NA* (06/11/24 10:51 AM) Invalid Interpretation Code 1.005 - 1.030 [facility] UA Auto SS Urobilinogen (U) [Mass/Vol] Negative Normal Negativemg/dL [facility] UA Auto SS WBC Auto (Urine sed) [#/Area] 6-15 graded/HPF Invalid Interpretation Code 0-5graded/HPF [facility] UA Auto SS URINALYSISOrdered By: Toan Santo on 06-11-2024 UA Spec Desc Clean Catch (06/11/24 10:51 AM) Normal [facility] UA Auto SS Work Phone: XR Abdomen [...] mGy = na DAP = na [facility] ED Clinical Summaryon 2023 ED Clinical Summary ED Clinical Summary [place] [address] ED Clinical Summary Person Information Name: SHERIE RIZVI He/[facility] Age: 23 Years : 2000 Sex: Female Language: Comoran PCP: Jenn Urban MD Marital Status: Single [...] 05/29/2024 03:05:04 05/29/2024 03:05:04 05/29/2024 03:05:04 ADDRESS: [address] [id number] PHYS DOC NOTES: MEDICAL INFORMATION: Prescriptions Given: [...] Externa Follow up: With: Address: When: Jenn Urban [address] [place] [address]., [address] [place] [address] [employer] (1) In 3 days DIAGNOSIS: Otitis externa of both ears [facility] ED Note-Physicianon 05-29-20 ED Note-Physician ED Note-Physician Basic Information Time Seen: Minh Jose 05/29/2024 02:22 Chief Complaint Bilateral ear pain [...] and Complexity of Problems Differential Diagnosis: [] [facility] Data External documents reviewed: N/A My EKG [...] way into the ear canal. She continue qqth-ivc-omnjtaf pain medications and follow-up with her primary [...] Information Jenn Urban In 3 days [address] [place] [address]- Business (1) Additional Instructions: Patient Education Otitis [...] Diagnostic Results No qualifying data available. [facility] Comment on above: Result Comment: Elec tronically Signed By: Jose Wilkinson DO\.br\Date and Time Signed: 05/29/24 02:44 EDT ED Patient Summaryon 024 ED Patient Summary ED Patient Summary [address] [address] Patient Discharge Instructions Person Information Name: BELKYSSHERIE Age: 23 Years Arrival Date: 05/29/2024 01:47:05 Discharge Diagnosis: Otitis externa of both ears Primary Care Physician: Jenn Urban MD Provider Information Primary Provider: Jose Wilkinson DO Advanced Process Control Specialist:None The exam and treatment you received in the Emergency Department were for an urgent problem and are not intended as complete care. It is important that you follow up with a doctor, nurse practitioner, or physician?s hospital clinic assistant for ongoing care. If your symptoms [...] Follow-up Instructions: With: Address: When: Jenn Urban [address] [place], [place] [address]., [address] [place] [id number] Business (1) In 3 days In the event that this physician does not participate in your insurance network, please consult with your insurance company to find a nearby participating provider. Patient Education Materials: Otitis Externa A MESSAGE TO ALL PATIENTS REGARDING OPIOIDS PRESCRIPTION OPIOIDS: WHAT YOU NEED TO KNOW Prescription opioids can be used to help relieve uylzmdgg-cl-yfszvj pain and are often prescribed following a [...] struggling with addiction, tell your health healthcare economics manager and ask for guidance or call [facility]?S [employer] Helpline at [phone]. rg Shine (more content not included)... [facility] Ambulatory Visit Summaryon 0 05-27-2024 Ambulatory Visit Summary Ambulatory Visit Summary SHERIE RIZVI :2000 Visit Date:05/27/2024 Ambulatory Visit Instructions Your Diagnosis Otitis media of left ear Otitis externa of both ears, Otitis externa of both ears BMI 25.0-25.9,adult Nonsmoker Your Care Team Attending Physician - ADAM MAXWELL, NATA Primary Care Physician - Wilmar PIERCE, Jenn Mcnamara This Is Your Medications List amoxicillin (amoxicillin [...] both ears Duration: 5 Days Pickup at [facility]/pharmacy #6173 New ciprofloxacin-dexameth asone otic (Ciprodex 0.3%-0.1% Susp-Otic) 4 Drops Otic 2 times a day Otitis media of left ear Otitis externa of both ears Duration: 7 Days BOTH ears shake well before using wash hands before applying Pickup at [facility]/pharmacy #6173 Unchanged clonidine (cloNIDine 0.2 mg Tab) 2 Tablets By Mouth Once a day (at bedtime) Unchanged drospirenone-ethinyl estradiol (Vestura 3 mg-0.02 mg oral tablet) Unchanged methylphenidate (methylphenidate 54 mg/ 24 hr oral tablet, extended release) 1 Tablets By Mouth Once a day (in the morning) Unchanged sertraline (sertraline 50 mg Tab) 1 Tablets By Mouth Every day Pharmacy Information [facility]/pharmacy #6173: [address] [place], [place] [id number] [phone] Allergies No Known Allergies Problems Ongoing - [...] for choosing us for your care. [facility] Family Medicine Office/Clini c Noteon 05-27-2024 [...] with voice recognition software. Occasional wrong-word or ?sinbj-y-ydjl? substitutions may have occurred due to the inherent limitations of voice recognition software. 23-year-old female presents with complaint of possible bilateral ear infection. Patient states she already had some ear discomfort but was swimming in [facility] over the weekend and noticed increased pain. [...] day(s), # 10 tab(s), Refills(s) 0, Pharmacy: [facility]/pharmacy #6173, 158, cm, 05/27/24 13:27:00 EDT, Height/Length Dosing, 64.8, kg, 05/27/24 13:27:00 EDT, Weight Dosing ciprofloxacin-dexameth asone otic, 4 drop(s), Otic, BID for 7 day(s), 7.5 mL, Refill(s) 0, BOTH ears shake well before using wash hands before applying, [facility], 158, cm, 05/27/24 13:27:00 EDT, Height/Length Dosing, 64.8, kg, 05/27/24 13:27:00 EDT, Weight Dosing 2. Otitis externa of both ears, (H60.93: Unspecified otitis externa, bilateral)Otitis externa of both ears Ciprodex otic drops 4 drops in each ear twice a day for 7 days. Ordered: amoxicillin, 875 mg = 1 tab(s), Oral, q12hr, X 5 day(s), # 10 tab(s), Refills(s) 0, Pharmacy: [facility]/pharmacy #6173, 158, cm, 05/27/24 13:27:00 EDT, Height/Length Dosing, 64.8, kg, 05/27/24 13:27:00 EDT, Weight Dosing ciprofloxacin-dexameth asone otic, 4 drop(s), Otic, BID for 7 day(s), 7.5 mL, Refill(s) 0, BOTH ears shake well before using wash hands before applying, [facility], 158, cm, 05/27/24 13:27:00 EDT, Height/Length [...] can offer counselling, (more content not included)... [facility] Comment on above: Result Comment: Elec tronically Signed By: Severino MARQUES, Lizet\.br\Date and Time Signed: 05/27/24 13:57 EDT Patient Letter FTon 2023 Patient Letter [facility] Patient Letter [facility] [address] [facility] [facility] [place] [id number] May 27, 2024 SHERIE RIZVI [address] [place] [address] : 2000 Please excuse HSERIE RIZVI from work . Date and/or Time of Absence: From: 05/27/24 To: 05/27/24 May return to work on: 05/28/24 Restrictions: None Comments: Please excuse due to an acute illness. Provider Signature: SHELLI Chatterjee Nurse Practitioner [facility] [address] [facility] [place] [address] [facility] NURSING PROGon 04-01-2024 NURSING PROG HNO ID: [id number] Author: FABIANA GUEVARA RN Service: ? Author Type: Registered Nurse Type: Nursing Progress Note Filed: 04/01/2024 10:37 Note Text: GI Pre-Procedure Spoke with patient: Left message- Attempted to reach the patient at the contact number that they provided [phone] (home) . 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, your call is very important. A [...] Status:Closed by INES WATTS on 02/16/24 Normal [facility] Consent for Treatmenton - Consent for Treatment [id number] 0TIFF [facility] RAD - MISCon 12-19-2023 RAD - MISC [id number]#1.0 0TIFF [facility] RAD - MRI Screening Formon 0 12-19-2023 RAD - MRI Screening Form [id number]#1.0 0TIFF [facility] Insurance Correspondenceon 0 12-11-2023 Insurance Correspondence [id number] 0TIFF [facility] General Surgery Office/Clini c Noteon 12-04-2023 General Surgery Office/Clinic Note 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 Substitutions may have occurred voice recognition and artificial intelligence software. Documentation services were performed after patient or guardian consented to allow [employer] to record this visit. GENARO advanced clinical specialist and provider reviewed before signing. GENARO: [...] Current, 08/21/2018 Rice (more content not included)... [facility] Comment on above: Result Comment: Elec tronically [...] history of breast cancer in female Normal [facility] Physician Referralon 024 Physician Referral [phone] [id number] Normal [facility] CNCOon 10-27-2023 CNCO Letter Text Normal [facility] ANES POSTPROC EVALon 024 ANES POSTPROC EVAL HNO ID: [id number] Author: MARY JANE STEVEN MD Service: ? [...] Mary Jane Steven MD PATIENT NAME: Sherie Breauxn DATE: October 23, 2023 TIME: 3:25 PM CSN: [id number] Normal [facility] ANES PRE-OPon 10-23-2023 ANES PRE-OP HNO ID: [id number] Author: MARY JANE STEVEN MD Service: ? Author Type: Anesthesiologist Type: Anesthesia Preprocedure Evaluation Filed: 10/23/2023 12:29 Note Text: ANESTHESIOLOGY DAY OF SURGERY NOTE : 2000 Procedure Information Anesthesia Start Date/Time: 10/23/23 1227 Scheduled providers: Gayle Arambula MD; Mago Urban APRN.CRNA; Mary Jane Steven MD Procedures: COLONOSCOPY DIAGNOSTIC [...] and consent discussed: yes. Patient / Responsible Democrat agrees to proceed: yes Patient / Surrogate [...] October 23, 2023 TIME: 12:28 PM CSN: [id number] Normal [facility] Colonoscopyon 10-23-2023 Colonoscopy Q3 Patient Name: Sherie Rizvi Procedure Date: 10/23/2023 12:16 PM Date of : 2000 Admit Type: Outpatient Age: 23 Gender: Female Note Status: Finalized Attending MD: Gayle Arambula MD, [id number] Procedure: Colonoscopy Indications: Generalized abdominal pain Providers: [...] screening purposes. Procedure Code(s): --- Professional --- 14745 Diagnosis Code(s): --- Professional --- R10.84 CPT copyright 2020 [employer]. All rights reserved. Attending Participation: I personally performed the entire procedure. Scope In: 12:46:07 PM Scope Out: 12:48:28 PM MD Gayle Sher MD 10/23/2023 12:54:37 PM This report has been signed electronically by Gayle Arambula MD Number of Addenda: 0 Note Initiated On: 10/23/2023 12:16 PM Normal [facility] EGD Study observation Narrat iveon 10-23-[address] [facility] Flexible sigmoidoscopy study on 10-23-[address] [facility] NURSING PROGon 10-23-2023 NURSING PROG HNO ID: [id number] Author: GUNJAN REID, RN Service: Nursing Author Type: Registered Nurse [...] Electronically Signed By: Gunjan Reid RN Normal [facility] NURSING PROG HNO ID: [id number] Author: ELIZA ACOSTA RN Service: ? Author [...] Eliza Acosta RN In Department: GASTROENTEROLOGY Normal [facility] SURGICAL PATHOLOGYon 024 CASE REPORT Normal [facility] Comment on above: Order Comment: Speci men Type: TISSUE SPECIMENOrdering Facility: [facility] Address: [address] [place] [address] Result Comment: Surg ica Pathology Report Case: [id number] Authorizing Provider: Gayle Arambula MD Collected: 10/23/2023 12:37 PM Ordering Location: Gastroenterology Received: 10/23/2023 04:29 PM Pathologist: Carlos Schuster MD Specimens: A) - DUODENUM BIOPSY, Duodenum biopsy r/o celiac disease B) - STOMACH BIOPSY, stomach biopsy r/o H. Pylori C) - ESOPHAGUS LOWER BIOPSY, Lower esophagus biopsy r/o EOE D) - ESOPHAGUS MID BIOPSY, Mid esophagus biopsy r/o EOE Performed By: #### S ####[facility] LABCLIA [id number] [place] [address] [place] DIAGNOSIS COMMENT Normal [facility] Comment on above: Order Comment: Speci eusebio Type: TISSUE SPECIMENOrdering Facility: [facility] Address: [address], [place] [address] Result Comment: A. T he finding of [...] been determined by the performing laboratory within [facility]???s Syed Pena [facility] Pathology and Laboratory Medicine [place] ([facility], [facility] [place] [facility], [facility], [facility], [facility], [facility], or [facility]) in a manner consistent with CLIA requirements. One or more of these tests have not been cleared or approved by the FDA. [facility] is regulated under CLIA as qualified to perform high-complexity testing. These tests are used for clinical purposes. They should not be regarded as investigational or for research. Positive and negative controls stain appropriately. Performed By: #### S ####[facility] LABCLIA [id number] [address] OF [facility] FINAL DIAGNOSIS Normal [facility] Comment on above: Order Comment: Speci men Type: TISSUE SPECIMENOrdering Facility: [facility] Address: [address] [place] [address] Result Comment: A. D uodenum, biopsy: - Duodenal mucosa with patchy intraepithelial lymphocytosis. - No evidence of villous blunting. - See comment. B. Stomach, biopsy: - Chronic active antral gastritis. - Immunohistochemical stain for Helicobacter pylori is negative. C, D. Esophagus, lower and mid, biopsy: - Squamous epithelium with no significant diagnostic alteration. - No evidence of intraepithelial eosinophils. Performed By: #### S ####[facility] LABCLIA [id number] [address] STATES OF [facility] FINAL PERFORMING LAB Normal [facility] Comment on above: Order Comment: Speci men Type: TISSUE SPECIMENOrdering Facility: [facility] Address: [address] [place] [address] Result Comment: Diag nostic interpretation performed at [facility], [address] [place] [address] CLIA# [id number] Orthopedic Nurse: Patrick Ron M.D. Performed By: #### S ####[facility] [id number] [address] STATES OF HE GROSS DESCRIPTION [facility] Comment on above: Order Comment: Speci men Type: TISSUE SPECIMENOrdering Facility: [facility] Address: [address] [place] [address] Result Comment: A. D UODENUM BIOPSY Received [...] in one cassette. Gross examination performed at [facility], [address] [place] [address] October 23, 2023 8:01 PM Performed By: #### S ####[facility] LABIA [id number] [address] OF HE Allison 10-16-2023 TAMEKA Telephone ([facility]) SHERIE RIZVI ([id number]) 4 F Date Time Provider Department 10/16/23 JUAN LUIS ONEIL During your visit today, we recorded the following information about you: Juan Luis Oneil RN 10/16/2023 12:10 PM Signed Attempted to reach the patient at the contact number that they provided [phone] (home) . 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 [...] Number to call with questions or concerns [phone] Number to call to cancel their procedure [phone] Juan Luis Oneil RN Allergies As of [...] by JUAN LUIS ONEIL on 10/16/23 Normal [facility] TSH SerPl-aCncon 09-20-2023 TSH Qn 1.880 m[IU]/L Normal 0.270-4.200 [facility] Comment on above: Order Comment: Speci men Type: BLOOD SPECIMENOrdering Facility: [facility] Address: [address] [place] [address] Result Comment: If t he patient is , TSH reference range varies by gestational period: First Trimester (weeks 9-12): 0.180-2.990 mIU/L Second Trimester: 0.110-3.980 mIU/L Third Trimester: 0.480-4.710 mIU/L Sivakumar Arnett et al. A Practical Approach for the Verifications and Determination of Site- and Trimester-Specific Reference Intervals for Thyroid Function tests in . Thyroid, 2019:29:3:412-420. Negrito Sosa, et al. 2017 Guidelines of the [place] Thy[employer] Association for the Diagnosis and Management of Thyroid Disease during and the . Thyroid, 2017:27:3:315-389. Performed By: #### 3 016-3 ####[facility] LABCLIA [id number] [facility] [id number] [place] [address] [place] CNOVon 08-22-2023 CNOV Office Visit (GENBMI ) SHERIE RIZVI ([id number]) 4 F Date Time Provider Department 08/22/23 4:00 PM LEVI JOHNSONI During your visit today, we recorded the [...] [R10.84] Order(s):CONSULT TO GASTROENTEROLOGY [9010] Order #: [id number]: 1 FUTURE Prescriptions as of 08/23/2023 - Drospirenone-Ethinyl Estradiol (YOLIS, 28,) 3-0.02 mg per tablet Take 1 tablet by mouth once daily. - LINZESS 145 mcg capsule - l (more content not included)... Normal [facility] C. trachomatis+N. gonorrhoea e DNA JERMAINE+probe Ql (Unsp spec)on 08-11-2023 C. trachomatis rRNA JERMAINE+probe Ql (Unsp spec) Negative Normal Negative for Chlamydia trachomatis by amplificaton [facility] Comment on above: Order Comment: Speci men Type: SWABOrdering Facility: [facility] Address: [address] [place] [address] Performed By: #### 3 6902-5 ####[facility] [id number] [place] [address] [place] N. gonorrhoeae rRNA JERMAINE+probe Ql (Unsp spec) Negative Normal Negative for Neisseria gonorrhoeae by amplification [facility] Comment on above: Order Comment: Speci men Type: SWABOrdering Facility: [facility] Address: [address] [place] [address] Performed By: #### 3 6902-5 ####[facility] LABIA [id number] [place] [address] [place] CNOVon 08-11-2023 CNOV Office Visit (OBGMEM ) SHERIE RIZVI ([id number]) 4 F Date Time Provider Department 08/11/23 1:30 PM LEONIE TIWARI OBEM During your visit today, we recorded the [...] OB 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 Normal [facility] PAP TESTon 08-11-2023 ADEQUACY Normal [facility] Comment on above: Order Comment: Speci men Type: FLUID SPECIMENOrdering Facility: [facility] Address: [address] [place] [address] Result Comment: Sati sfactory for interpretation Excess blood Performed By: #### L [id number] ####[facility] LABCLIA [id number] [place] [address] [place] CASE REPORT Normal [facility] Comment on above: Order Comment: Speci men Type: FLUID SPECIMENOrdering Facility: [facility] Address: [address] [place] [address] Result Comment: Gyne cologic Cytology Report Case: [id number] Authorizing Provider: Leonie Tiwari MD Collected: 08/11/2023 03:24 PM Ordering Location: Obstetrics/Gynecology Received: 08/14/2023 07:54 AM First Screen: Abhishek Lee Tech Specimen: Pap Test, ThinPrep, Cervix Performed By: #### L [id number] ####[facility] LABCLIA [id number] [place] [address] [place] CLINICAL HISTORY, CYTOLOGY, WELL DRILL OPERATOR CABLE TOOL Routine Exam Normal [facility] Comment on above: Order Comment: Speci men Type: FLUID SPECIMENOrdering Facility: [facility] Address: [address] [place] [address] Performed By: #### L [id number] ####[facility] LABCLIA [id number] [place] [address] [place] FINAL PERFORMING LAB Normal [facility] Comment on above: Order Comment: Speci men Type: FLUID SPECIMENOrdering Facility: [facility] Address: [address] [place] [address] Result Comment: Tech nical component, refractory bricklayer screening performed at [facility], [address] [id number] CLIA# [id number] Diagnostic interpretation performed at [facility], [address] [id number] CLIA# [id number] Orthopedic Nurse: Patrick Ron M.D. Performed By: #### L [id number] ####[facility] LABCLIA [id number] [place] [address] [place] GROSS DESCRIPTION A. Cervix Normal [facility] Comment on above: Order Comment: Speci men Type: FLUID SPECIMENOrdering Facility: [facility] Address: [address] [place] [address] Result Comment: Glac ial Acetic Acid added. Performed By: #### L [id number] ####[facility] LABCLIA [id number] [place] [address] [place] HPV REFLEX HPV if Atypical Normal [facility] Comment on above: Order Comment: Speci men Type: FLUID SPECIMENOrdering Facility: [facility] Address: [address] [place] [address] Performed By: #### L [id number] ####[facility] LABCLIA [id number] [place] [address] [place] INTERPRETATION, CYTOLOGY, WELL DRILL OPERATOR CABLE TOOL Normal [facility] Comment on above: Order Comment: Speci men Type: FLUID SPECIMENOrdering Facility: [facility] Address: [address] [place] [address] Result Comment: Nega tive for intraepithelial lesion or malignancy. Performed By: #### L [id number] ####[facility] LABCLIA [id number] [place] [address] [place] LMP 08/09/2023 Normal [facility] Comment on above: Order Comment: Speci men Type: FLUID SPECIMENOrdering Facility: [facility] Address: [address] [place] [address] Performed By: #### L [id number] ####[facility] LABCLIA [id number] [address] STATES OF HE PAP DISCLAIMER COMMENT The Pap Smear is a screening test for cervical cancer. False negative results occur with all screening tests, emphasizing the need for rescreening at recommended intervals, and clinical correlation. Normal [facility] Comment on above: Order Comment: Speci men Type: FLUID SPECIMENOrdering Facility: [facility] Address: [address] [place] [address] Performed By: #### L [id number] ####[facility] LABIA [id number] [address] STATES OF HE PAP MEDICAL RECEPTION COMMENT This specimen has be en analyzed by the ThinPrep Imaging System, an automated imaging and review system, which assists the laboratory in evaluating cells on ThinPrep Pap tests. Following automated imaging, selected lamas from every slide are reviewed by a refractory bricklayer. Normal [facility] Comment on above: Order Comment: Speci men Type: FLUID SPECIMENOrdering Facility: [facility] Address: [address] [place] [address] Performed By: #### L [id number] ####[facility] LABIA [id number] [address] STATES OF HE MICRO OTHER TESTSOrdered By: Yessy Guerrero on 07-14-2023 Influenzae A Ag Negative (07/14/23 5:47 AM) Normal Negative [facility] Man Sero Influenzae B Ag Negative 1 (07/14/23 5:47 AM) Normal Negative [facility] Sero Comment on above: Interpretive Data: T [...] POS Ctl Pass (07/14/23 5:47 AM) Normal [facility] Sero SARS-CoV+SARS-CoV-2 (COVID-19) Ag IA.rapid Ql (Resp) Detected 2 *ABN* (07/14/23 5:47 AM) Invalid Interpretation Code Not Detected [facility] Sero Comment on above: Interpretive Data: Orquidea hagan Farehelperitor System for Rapid Detection of SARS-CoV-2 is [...] other viruses or pathogens; and, in the [facility], this test is only authorized for the [...] ratio] 18 mg/mg Normal 10 - 20 [facility] Remisol HEMATOLOGYOrdered By: SYSTEM SYSTEM on 04-12-2023 [...] 5.8 % Normal 4.0 - 14.0 % FT [...] 9.5 E9/L Normal 4.0 - 11.0 E9/L [facility] HemeAutoSS SEROLOGYOrdered By: Shadi mccord on 04-12-2023 HCG.beta subunit (U) [Moles/Vol] Negative Normal [facility] Man Sero URINALYSISOrdered By: Shadi Pack on [...] AM) Normal Negative [facility] UA Auto SS [place].plasma/Lithi um.RBC (Bld) [Mass ratio] 4-20 /HPF Normal [...] Desc Clean Catch (04/12/23 2:05 AM) Normal [facility] UA Auto SS Urobilinogen Qn (U) 0.6720749 {Angelic'U}/dL Normal 0.0 - 1.0 EU/dL [facility] [...] PM) Normal Negative [facility] UA Auto SS [place].plasma/Lithi um.RBC (Bld) [Mass ratio] 0-3 /HPF Normal [...] [facility] UA Auto SS Urobilinogen Qn (U) 0.9505453 {Angelic'U}/dL Normal 0.0 - 1.0 EU/dL [facility] UA Auto SS WBC Auto Ql (U) Negative (11/11/22 4:12 PM) Normal Negative [facility] UA Auto SS WBC LM.HPF (Urine sed) [#/Area] 6-15 /HPF Invalid Interpretation Code 0-5/HPF [facility] UA Auto SS CARDIAC MARTELL ADMITon 023 CK [Catalytic activity/Vol] 88 U/L Normal 26-192 [facility] Comment on above: Performed By: #### C CLAUS, KATRIN #### [facility] [address] [place] [address] Dr. Diandra Mays CK.MB [Mass/Vol] ng/mL Normal <=3.60 [facility] Comment on above: Performed By: #### C KATRIN DEVLIN #### [facility] [address] [place] [address] Dr. Diandra aMys HSTROP <4.0 Normal 4.0-51.3 [facility] Comment on above: Result Comment: CUT- OFF POINTS HAVE BEEN ESTABLISHED BASED ON THE FOURTH UNIVERSAL DEFINITIONS OF MYOCARDIAL INFARCTION. THE UPPER REFERENCE LIMIT (URL) OF TROPONIN, DEFINED THE 99TH PERCENTILE OF cTnI DISTRIBUTION IN A REFERENCE POPULATION, HAS BEEN CONFIRMED THE DECISION THRESHOLD FOR AR DIAGNOSIS. Performed By: #### C KATRIN DEVLIN #### [facility] [address] [place] [address] Dr. Diandra Mays ASTRID 21 ng/mL Normal 9-82 [facility] Comment on above: Performed By: #### C KATRIN DEVLIN #### [facility] [address] [place] [address] Dr. Diandra Mays CBC AUTO DIFFon 10-05-2022 BASO # 0.1 103/ul Normal 0.0-0.1 [facility] Comment on above: Performed By: #### C BC #### [facility] [address] [place] [address] Dr. Diandra Mays Basophils/100 WBC (Bld) 0.6 % Normal 0.2-2.0 [facility] Comment on above: Performed By: #### C BC #### [facility] [address] [place] [address] Dr. Diandra Mays EO # 0.2 103/ul Normal 0.0-0.7 [facility] Comment on above: Performed By: #### C BC #### [facility] [address] [place] [address] Dr. Diandra Mays Eosinophils/100 WBC (Bld) 1.8 % Normal 0.9-7.0 [facility] Comment on above: Performed By: #### C BC #### [facility] [address] [place] [address] Dr. Diandra Mays Erythrocyte distribution width (RBC) [Ratio] 14.4 % Normal 11.0-15.0 [facility] Comment on above: Performed By: #### C BC #### [facility] [address] [place] [address] Dr. Diandra Mays Hematocrit (Bld) [Volume fraction] 45.3 % Normal 36.0-48.0 [facility] Comment on above: Performed By: #### C BC #### [facility] [address] [place] [address] Dr. Diandra Mays Hemoglobin (Bld) [Mass/Vol] 14.8 g/dL Normal 12.0-16.0 [facility] Comment on above: Performed By: #### C BC #### [facility] [address] [place] [address] Dr. Diandra Mays IG # 0.03 10e3/ul Normal 0.00-0.03 [facility] Comment on above: Performed By: #### C BC #### [facility] [address] [place] [address] Dr. Diandra Mays IG % 0.3 % Normal 0.0-0.5 [facility] Comment on above: Performed By: #### C BC #### [facility] [address] [place] [address] Dr. Diandra Mays LYMPH # 3.8 103/ul Normal 1.2-3.8 [facility] Comment on above: Performed By: #### C BC #### [facility] [address] [place] [address] Dr. Diandra Mays Lymphocytes/100 WBC (Bld) 33.8 % Normal 20.5-60.0 [facility] Comment on above: Performed By: #### C BC #### [facility] [address] [place] [address] Dr. Diandra Mays MANUAL DIFF REQ NO Normal [facility] Comment on above: Performed By: #### C BC #### [facility] [address] [place] [address] Dr. Diandra Mays MCH (RBC) [Entitic mass] 29.4 pg Normal 26.7-34.0 [facility] Comment on above: Performed By: #### C BC #### [facility] [address] [place] [address] Dr. Diandra Mays MCHC (RBC) [Mass/Vol] 32.7 g/dL Normal 29.9-35.2 [facility] Comment on above: Performed By: #### C BC #### [facility] [address] [place] [address] Dr. Diandra Mays MCV (RBC) [Entitic vol] 90.1 fL Normal 81.0-99.0 [facility] Comment on above: Performed By: #### C BC #### [facility] [address] [place] [address] Dr. Diandra Mays MONO # 0.9 103/ul Critically high 0.3-0.8 [facility] Comment on above: Performed By: #### C BC #### [facility] [address] [place] [address] Dr. Diandra Mays Monocytes/100 WBC (Bld) 8.1 % Normal 1.7-12.0 [facility] Comment on above: Performed By: #### C BC #### [facility] [address] [place] [address] Dr. Diandra Mays NEUT # 6.2 103/ul Normal 1.4-6.5 [facility] Comment on above: Performed By: #### C BC #### [facility] [address] [place] [address] Dr. Diandra Mays Neutrophils/100 WBC (Bld) 55.4 % Normal 43.0-75.0 [facility] Comment on above: Performed By: #### C BC #### [facility] [address] [place] [address] Dr. Diandra Mays Platelet mean volume (Bld) [Entitic vol] 10.1 fL Normal 9.5-13.5 [facility] Comment on above: Performed By: #### C BC #### [facility] [address] [place] [address] Dr. Diandra Mays PLT 331 103/ul Normal 150-450 [facility] Comment on above: Performed By: #### C BC #### [facility] [address] [place], [place] [address] Dr. Diandra Mays RBC 5.03 106/ul Normal 4.20-5.40 [facility] Comment on above: Performed By: #### C BC #### [facility] [address] [place], [place] [id number] Dr. Diandra Mays WBC 11.1 103/ul Critically high 4.0-11.0 [facility] Comment on above: Performed By: #### C BC #### [facility] [address], [place] [address] Dr. Diandra Mays Covid-19 PCR ([facility])on SARS-CoV-2 (COVID-19) RNA JERMAINE+probe Ql (Unsp spec) Not detected Normal NOT DETECTED [facility] Comment on above: Result Comment: This test is not yet approved or cleared by the [place] FDA. When there are no FDA-approved or cleared tests available, and other criteria are met, FDA can make tests available under an emergency access mechanism called an Emergency Use Authorization (EUA). The EUA for this test is supported by the [place] of Health and Human Service's (HHS's) declaration [...] SARS-CoV-2. Performed By: #### I NFLUAB #### [facility] [address], [place] [address] Dr. Diandra Mays ER URINE PROFILEon 3 Bilirubin Ql (U) Negative Normal NEGATIVE [facility] Comment on above: Performed By: #### P REGU, ERUR, UMICRO #### [facility] [address] [address] [address] Diandra Mays Clarity (U) CLEAR Normal CLEAR [facility] Comment on above: Performed By: #### P REGU, ERUR, UMICRO #### [facility] [address] [address] [address] Diandra Mays Color (U) YELLOW Normal YELLOW [facility] Comment on above: Performed By: #### P REGU, ERUR, UMICRO #### [facility] [address] [address] [address] Diandra ROWELL A micrscopic examination will be performed if indicated. Normal [facility] Comment on above: Performed By: #### P REGU, ERUR, UMICRO #### [facility] [address] [address] [address] Diandra Mays Glucose Ql (U) Negative Normal NEGATIVE [facility] Comment on above: Performed By: #### P REGU, ERUR, UMICRO #### [facility] [address] [address] [address] Diandra Mays Hemoglobin Ql (U) LARGE Abnormal NEGATIVE The [facility] Comment on above: Performed By: #### P REGU, ERUR, UMICRO #### [facility] [address] [address] [address] Diandra Mays Ketones Ql (U) Negative Normal NEGATIVE [facility] Comment on above: Performed By: #### P REGU, ERUR, UMICRO #### [facility] [address] [address] [address] Dianrda Mays LEUKOCYTES Negative Normal NEGATIVE [facility] Comment on above: Performed By: #### P REGU, ERUR, UMICRO #### [facility] [address] [address] [address] Diandra Mays Nitrite Ql (U) Negative Normal NEGATIVE [facility] Comment on above: Performed By: #### P REGU, ERUR, UMICRO #### [facility] [address] [address] [address] Diandra Mays pH (U) 6.0 [pH] Normal 5-9 [facility] Comment on above: Performed By: #### P MICHAEL CANNON UMICRO #### [facility] [address] [place] [address] Dr. Diandra Mays SPEC GRAVITY >=1.030 Abnormal 1.005-<=1.025 [facility] Comment on above: Performed By: #### P MICHAEL CANNON UMICRO #### [facility] [address] [place] [address] Dr. Diandra Mays UA PROTEIN Negative Normal NEGATIVE/ TRACE [facility] Comment on above: Performed By: #### MICHAEL BIANCHI UMICRO #### [facility] [address] [place] [address] Dr. Diandra Mays UR MICRO IND INDICATED Normal [facility] Comment on above: Performed By: #### MICHAEL BIANCHI UMICRO #### [facility] [address] [place] [address] Dr. Diandra Mays Urobilinogen Qn (U) 1.0 {Angelic'U}/dL Normal 0.2 - 1. 0 [facility] Comment on above: Performed By: #### MICHAEL BIANCHI UMICRO #### [facility] [address] [place] [address] Dr. Diandra Mays INFLUENZA A AND B AGon 10-05 INFLUENZA A AG Negative Normal NEGATIVE SEE COMMENT [facility] Comment on above: Performed By: #### I NFLUAB #### [facility] [address] [place] [address] Dr. Diandra Mays INFLUENZA B AG Negative Normal NEGATIVE SEE COMMENT [facility] Comment on above: Performed By: #### I NFLUAB #### [facility] [address] [place] [address] Dr. Diandra Mays URon 10-05-2022 , QUAL Negative Normal NEGATIVE [facility] Comment on above: Performed By: #### P IRVING CANNONR UMICRO #### [facility] [address] [address] [address] Diandra Mays PROF 14(COMP METB)on 023 Albumin [Mass/Vol] 3.9 g/dL Normal 3.4-5.0 [facility] Comment on above: Performed By: #### C CLAUS, CMADM #### [facility] [address] [address] [address] Diandra Mays Albumin/Globulin [Mass ratio] 1.1 {ratio} Normal [facility] Comment on above: Performed By: #### C CLAUS, CMADM #### [facility] [address] [address] [address] Diandra Mays ALP [Catalytic activity/Vol] 86 U/L Normal 46-116 [facility] Comment on above: Performed By: #### C CLAUS, CMADM #### [facility] [address] [place] [address] Dr. Diandra Mays ALT [Catalytic activity/Vol] 14 U/L Normal 14-59 [facility] Comment on above: Performed By: #### C CLAUS, CMADM #### [facility] [address] [address] [address] Diandra Mays Anion gap [Moles/Vol] 13.1 mmol/L Normal [facility] Comment on above: Performed By: #### C CLAUS, CMADM #### [facility] [address] [address] [address] Diandra Mays AST [Catalytic activity/Vol] 18 U/L Normal 15-37 [facility] Comment on above: Performed By: #### C CLAUS, CMADM #### [facility] [address] [address] [address] Diandra Mays Bilirubin [Mass/Vol] 1.0 mg/dL Normal 0.2-1.0 [facility] Comment on above: Performed By: #### C CLAUS, CMADM #### [facility] [address] [address] [address] Diandra Mays Calcium [Mass/Vol] 9.1 mg/dL Normal 8.5-10.1 [facility] Comment on above: Performed By: #### C MP, CMADM #### [facility] [address] [address] [address] Diandra Mays Chloride [Moles/Vol] 103 mmol/L Normal 98-107 [facility] Comment on above: Performed By: #### C MP, CMADM #### [facility] [address] [address] [address] Diandra Mays CO2 [Moles/Vol] 26.3 mmol/L Normal 21.0-32.0 [facility] Comment on above: Performed By: #### C MP, CMADM #### [facility] [address] [address] [address] Diandra Mays Creatinine [Mass/Vol] 0.74 mg/dL Normal 0.55-1.02 [facility] Comment on above: Performed By: #### C MP, CMADM #### [facility] [address] [address] [address] Diandra Mays EGFR-AF MALAGASY >60 Normal >=60 [facility] Comment on above: Performed By: #### C MP, CMADM #### [facility] [address] [address] [address] Diandra Mays EGFR-NON AF MALAGASY >60 Normal >=60 [facility] Comment on above: Performed By: #### C MP, CMADM #### [facility] [address] [address] [address] Diandra Mays Globulin (S) [Mass/Vol] 3.4 g/dL Normal [facility] Comment on above: Performed By: #### C MP, CMADM #### [facility] [address] [address] [address] Diandra Mays Glucose [Mass/Vol] 91 mg/dL Normal 74-106 [facility] Comment on above: Performed By: #### C MP, CMADM #### [facility] [address] [address] [address] Diandra Mays Potassium [Moles/Vol] 3.4 mmol/L Critically low 3.5-5.1 [facility] Comment on above: Performed By: #### C MP, CMADM #### [facility] [address] [address] [address] Diandra Mays Protein [Mass/Vol] 7.3 g/dL Normal 6.4-8.2 [facility] Comment on above: Performed By: #### C MP, CMADM #### [facility] [address] [address] [address] Diandra Mays Sodium [Moles/Vol] 139 mmol/L Normal 136-145 [facility] Comment on above: Performed By: #### C MP, CMADM #### [facility] [address] [place] [address] Dr. Diandra Mays Urea nitrogen [Mass/Vol] 13.0 mg/dL Normal 7.0-18.0 [facility] Comment on above: Performed By: #### C CLAUS, CMADM #### [facility] [address] [place] [address] Dr. Diandra Mays Urea nitrogen/Creatinine [Mass ratio] 17.6 mg/mg Normal [facility] Comment on above: Performed By: #### C MP, CMADM #### [facility] [address] [place] [address] Dr. Diandra Mays URINE MICROSCOPIC ONLYon BACTERIA NONE SEEN Normal NONE SEEN [facility] Comment on above: Performed By: #### P REGU, ERUR, UMICRO #### [facility] [address] [place] [address] Dr. Diandra Mays Bacteria identified Cx Nom (U) NOT INDICATED Normal [facility] Comment on above: Performed By: #### P REGU, ERUR, UMICRO #### [facility] [address] [place] [address] Dr. Diandra Mays CAST NONE SEEN Normal NONE SEEN [facility] Comment on above: Performed By: #### P REGU, ERUR, UMICRO #### [facility] [address] [place] [address] Dr. Diandra Mays Crystals LM Nom (Urine sed) NONE SEEN Normal NONE SEEN [facility] Comment on above: Performed By: #### P REGU, ERUR, UMICRO #### [facility] [address] [address] [address] Diandra Mays Epithelial cells LM Ql (Urine sed) FEW Abnormal NONE SEEN /RARE [facility] Comment on above: Performed By: #### P REGU, ERUR, UMICRO #### [facility] [address] [address] [address] Diandra Mays MUCOUS NONE SEEN Normal NONE SEEN [facility] Comment on above: Performed By: #### P REGU, ERUR, UMICRO #### [facility] [address] [address] [address] Diandra Mays RBC 20-50 Abnormal 0-2 [facility] Comment on above: Performed By: #### P REGU, ERUR, UMICRO #### [facility] [address] [address] [address] Diandra Mays WBC 2-5 Abnormal NONE SEEN [facility] Comment on above: Performed By: #### P REGU, ERUR, UMICRO #### [facility] [address] [address] [address] Diandra Mays STREPT SCREENon 08-14-2022 STREP SCREEN A Positive Abnormal NEGATIVE [facility] Comment on above: Performed By: #### S SCRN #### [facility] [address] [address] [address] Diandra Mays Covid-19 PCR ([facility])on SARS-CoV-2 (COVID-19) RNA JERMAINE+probe Ql (Unsp spec) Not detected Normal NOT DETECTED [facility] Comment on above: Result Comment: [...] for this test is supported by the [place] of Health and Human Service's declaration that [...] used). Performed By: #### C VDTB #### [facility] [address] [place] [address] Dr. Diandra Mays INFLUENZA A AND B AGon 08-08 INFLUBNEG SEE BELOW Normal [facility] Comment on above: Result Comment: Nega tive for Flu B protein antigen. Infection due to Flu B cannot be ruled out. Flu B antigen in the sample may be below the detection limit of the test. Performed By: #### I NFLUAB #### [facility] [address] [place] [address] Dr. Diandra Mays INFLUENZA A AG Positive Abnormal NEGATIVE SEE COMMENT [facility] Comment on above: Performed By: #### I NFLUAB #### [facility] [address] [place] [address] Dr. Diandra Mays INFLUENZA B AG Negative Normal NEGATIVE SEE COMMENT [facility] Comment on above: Performed By: #### I NFLUAB #### [facility] [address] [place] [address] Dr. Diandra Mays INFLUPOS SEE BELOW Normal [facility] Comment on above: Result Comment: NOTE : Live attenuated influenzae vaccine viruses can cause a positive result for a rapid influenza diagnostic test if administered up to 7 days prior to rapid testing. Performed By: #### I NFLUAB #### [facility] [address] [place] [address] Dr. Diandra Mays INTERNAL CONTROLS Within Normal Limits Normal Wi thin Normal Limits [facility] Comment on above: Performed By: #### I NFLUAB #### [facility] [address] [place] [address] Dr. Diandra Mays MICRO OTHER TESTSOrdered By: Rita Elena on 06-28-2022 S. pyogenes Ag IA.rapid Ql (Throat) Negative (06/28/22 6:21 PM) Normal Negative [facility] Man Sero Vital Signs Date Time Vital Sign Value Performing Clinician Facility 11-26-2024 17:15-0400 Diastolic blood pressure 78 mm[Hg] Jenn Urban MD Work Phone: [facility] 11-26-2024 17:15-0400 Heart rate 76 /min Jenn Urban MD Work Phone: [facility] 11-26-2024 17:15-0400 Respiratory rate 16 /min Jenn Urban MD Work Phone: [facility] 11-26-2024 17:15-0400 SaO2% (BldA) [Mass fraction] 97 % Jenn Urban MD Work Phone: [facility] 11-26-2024 17:15-0400 Systolic blood pressure 113 mm[Hg] Jenn Urban MD Work Phone: [facility] 11-26-2024 16:25-0400 Body temperature 97.8 [degF] Jenn Urban MD Work Phone: [facility] 11-26-2024 16:02-0400 Inhaled oxygen flow rate 8 L/min Jenn Urban MD Work Phone: [facility] 11-26-2024 14:02-0400 Body height 157.48 cm Jenn Urban MD Work Phone: [facility] 11-26-2024 14:02-0400 Body weight 65.77 kg Jenn Urban MD Work Phone: [facility] 10-28-2024 09:00-0500 Diastolic blood pressure 82 mm[Hg] Rey Barrera [facility] 10-28-2024 09:00-0500 Heart rate 73 /min Rey Barrera [facility] 10-28-2024 09:00-0500 Mean blood pressure 92 mm[Hg] Rey Bruce [facility] 10-28-2024 09:00-0500 SaO2% (BldA) [Mass fraction] 97 % Rey Bruce [facility] 10-28-2024 09:00-0500 Systolic blood pressure 112 mm[Hg] Rey Bruce [facility] 10-28-2024 08:24-0500 Diastolic blood pressure 70 mm[Hg] Rey Bruce [facility] 10-28-2024 08:24-0500 Heart rate 79 /min Rey Bruce [facility] 10-28-2024 08:24-0500 Mean blood pressure 83 mm[Hg] Rey Bruce [facility] 10-28-2024 08:24-0500 Respiratory rate 16 /min Rey Barrera [facility] 10-28-2024 08:24-0500 SaO2% (BldA) [Mass fraction] 99 % Rey Bruce [facility] 10-28-2024 08:24-0500 Systolic blood pressure 109 mm[Hg] Rey Bruce [facility] 10-28-2024 07:42-0500 Diastolic blood pressure 107 mm[Hg] Rey Bruce [facility] 10-28-2024 07:42-0500 Heart rate 81 /min Rey Bruce [facility] 10-28-2024 07:42-0500 Mean blood pressure 119 mm[Hg] Rey Bruce [facility] 10-28-2024 07:42-0500 SaO2% (BldA) [Mass fraction] 99 % Rey Bruce [facility] 10-28-2024 07:42-0500 Systolic blood pressure 144 mm[Hg] Rey Bruce [facility] 10-28-2024 06:47-0500 Body temperature 98.24 [degF] Rey Barrera [facility] 10-28-2024 06:47-0500 Heart rate 81 /min Rey Barrera [facility] 10-10-2024 13:51-0500 Blood Pressure Location Yessy Guerrero [facility] 10-10-2024 13:51-0500 Body temperature 98.42 [degF] Yessy Guerrero [facility] 10-10-2024 13:51-0500 Diastolic blood pressure 80 mm[Hg] Yessy Guerrero [facility] 10-10-2024 13:51-0500 Heart rate 87 /min Yessy Guerrero [facility] 10-10-2024 13:51-0500 Respiratory rate 18 /min Yessy Guerrero [facility] 10-10-2024 13:51-0500 SaO2% (BldA) [Mass fraction] 94 % Yessy Guerrero [facility] 10-10-2024 13:51-0500 Systolic blood pressure 108 mm[Hg] Yessy Guerrero [facility] 07-29-2024 05:59-0500 Body temperature 98.42 [degF] Jose Wilkinson [facility] 07-29-2024 05:59-0500 Diastolic blood pressure 77 mm[Hg] Jose Wilkinson [facility] 07-29-2024 05:59-0500 Heart rate 92 /min Jose Minh [facility] 07-29-2024 05:59-0500 Respiratory rate 17 /min Jose Minh [facility] 07-29-2024 05:59-0500 SaO2% (BldA) [Mass fraction] 97 % Jose Minh [facility] 07-29-2024 05:59-0500 Systolic blood pressure 115 mm[Hg] Jose Minh [facility] 06-28-2024 14:53-0400 Body temperature 98.96 [degF] Luís Shannone [facility] 06-28-2024 14:53-0400 Diastolic blood pressure 91 mm[Hg] Luís Shannone [facility] 06-28-2024 14:53-0400 Heart rate 102 /min Luís Gin [facility] 06-28-2024 14:53-0400 Respiratory rate 16 /min Luís Gin [facility] 06-28-2024 14:53-0400 SaO2% (BldA) [Mass fraction] 100 % Luís Gin [facility] 06-28-2024 14:53-0400 Systolic blood pressure 123 mm[Hg] Luís Gin [facility] 06-11-2024 12:00-0400 Diastolic blood pressure 72 mm[Hg] Luís Gin [facility] 06-11-2024 12:00-0400 Heart rate 84 /min Luís Gin [facility] 06-11-2024 12:00-0400 SaO2% (BldA) [Mass fraction] 99 % Luís Gin [facility] 06-11-2024 12:00-0400 Systolic blood pressure 105 mm[Hg] Luís Gin [facility] 06-11-2024 11:30-0400 Diastolic blood pressure 71 mm[Hg] Luís Gin [facility] 06-11-2024 11:30-0400 Heart rate 83 /min Luís Gin [facility] 06-11-2024 11:30-0400 Mean blood pressure 83 mm[Hg] Luís Gin [facility] 06-11-2024 11:30-0400 Respiratory rate 16 /min Luís Gin [facility] 06-11-2024 11:30-0400 SaO2% (BldA) [Mass fraction] 98 % Luís Gin [facility] 06-11-2024 11:30-0400 Systolic blood pressure 106 mm[Hg] Luís Gin [facility] 06-11-2024 10:40-0400 Body temperature 97.7 [degF] Luís Gin [facility] 06-11-2024 10:40-0400 Diastolic blood pressure 102 mm[Hg] Luís Gin [facility] 06-11-2024 10:40-0400 Heart rate 88 /min Luís Gin [facility] 06-11-2024 10:40-0400 Respiratory rate 18 /min Luís Gin [facility] 06-11-2024 10:40-0400 SaO2% (BldA) [Mass fraction] 97 % Luís Gin [facility] 06-11-2024 10:40-0400 Systolic blood pressure 133 mm[Hg] Luís Greenfield [facility] 05-29-2024 02:03-0400 Body temperature 98.24 [degF] Jose Minh [facility] 05-29-2024 02:03-0400 Diastolic blood pressure 86 mm[Hg] Jose Minh [facility] 05-29-2024 02:03-0400 Heart rate 99 /min Jose Minh [facility] 05-29-2024 02:03-0400 Respiratory rate 16 /min Jose Minh [facility] 05-29-2024 02:03-0400 SaO2% (BldA) [Mass fraction] 97 % Jose Minh [facility] 05-29-2024 02:03-0400 Systolic blood pressure 134 mm[Hg] Jose Minh [facility] 05-27-2024 13:22-0400 Blood Pressure Location NATA MEDINA [facility] 05-27-2024 13:22-0400 Body temperature 98.6 [degF] NATA MEDNIA [facility] 05-27-2024 13:22-0400 Diastolic blood pressure 82 mm[Hg] NATA MEDINA [facility] 05-27-2024 13:22-0400 Heart rate 107 /min NATA MEDINA [facility] 05-27-2024 13:22-0400 Respiratory rate 16 /min [facility] 05-27-2024 13:22-0400 SaO2% (BldA) [Mass fraction] 97 % NATA BARRETOTIZ [facility] 05-27-2024 13:22-0400 Systolic blood pressure 114 mm[Hg] NATA BARRETOTIZ [facility] 12-01-2023 08:47-0400 Blood Pressure Location Luís Saavedramarlenilesley [facility] [place] 12-01-2023 08:47-0400 Diastolic blood pressure 75 mm[Hg] Luís Perla [facility] [place] 12-01-2023 08:47-0400 Heart rate 83 /min Luís Perla [facility] [place] 12-01-2023 08:47-0400 Systolic blood pressure 137 mm[Hg] Luís Perla [facility] [place] 10-23-2023 13:40-0500 Heart rate 59 /min Gayle Arambula MD Work Phone: [facility] 10-23-2023 13:40-0500 SaO2% (BldA) [Mass fraction] 100 % Gayle Arambula MD Work Phone: [facility] 10-23-2023 13:30-0500 Diastolic blood pressure 73 mm[Hg] Gayle Arambula MD Work Phone: [facility] 10-23-2023 13:30-0500 Respiratory rate 16 /min Gayle Arambula MD Work Phone: [facility] 10-23-2023 13:30-0500 Systolic blood pressure 114 mm[Hg] Gayle Arambula MD Work Phone: [facility] 10-23-2023 13:06-0500 Body temperature 96.8 [degF] Gayle Arambula MD Work Phone: [facility] 10-23-2023 10:47-0500 Body weight 56.7 kg Gayle Aramblua MD Work Phone: [facility] 07-14-2023 06:30-0500 Body temperature 98.6 [degF] Jose Minh [facility] 07-14-2023 06:30-0500 Diastolic blood pressure 94 mm[Hg] Jose Minh [facility] 07-14-2023 06:30-0500 Heart rate 95 /min Jose Minh [facility] 07-14-2023 06:30-0500 Mean blood pressure 101 mm[Hg] Jose Minh [facility] 07-14-2023 06:30-0500 Respiratory rate 16 /min Jose Minh [facility] 07-14-2023 06:30-0500 SaO2% (BldA) [Mass fraction] 98 % Jose Minh [facility] 07-14-2023 06:30-0500 Systolic blood pressure 115 mm[Hg] Jose Minh [facility] 07-14-2023 06:00-0500 Heart rate 88 /min Jose Minh [facility] 07-14-2023 06:00-0500 Mean blood pressure 104 mm[Hg] Jose Minh [facility] 07-14-2023 06:00-0500 Respiratory rate 17 /min Jose Minh [facility] 07-14-2023 06:00-0500 SaO2% (BldA) [Mass fraction] 99 % Jose Minh [facility] 07-14-2023 05:31-0500 Body temperature 98.6 [degF] Jose Minh [facility] 07-14-2023 05:31-0500 Diastolic blood pressure 91 mm[Hg] Jose Mnih [facility] 07-14-2023 05:31-0500 Heart rate 92 /min Jose Minh [facility] 07-14-2023 05:31-0500 Respiratory rate 16 /min Jose Minh [facility] 07-14-2023 05:31-0500 SaO2% (BldA) [Mass fraction] 98 % [facility] [facility] 07-14-2023 05:31-0500 Systolic blood pressure 129 mm[Hg] Jose Minh [facility] 07-14-2023 05:21-0500 Heart rate 93 /min Jose Minh [facility] 06-21-2023 14:09-0400 Body height 157.5 cm Pastora Oh MD Work Phone: [facility] 06-21-2023 14:09-0400 Body weight 54.43 kg Pastora Oh MD Work Phone: [facility] 06-21-2023 14:09-0400 Diastolic blood pressure 87 mm[Hg] Pastora Oh MD Work Phone: [facility] 06-21-2023 14:09-0400 Heart rate 78 /min Pastora Oh MD Work Phone: [facility] 06-21-2023 14:09-0400 Systolic blood pressure 142 mm[Hg] Pastora Oh MD Work Phone: [facility] 04-12-2023 03:40-0400 Body temperature 98.06 [degF] Kaylinn Dokken [facility] 04-12-2023 03:40-0400 Diastolic blood pressure 81 mm[Hg] Kaylinn Dokken [facility] 04-12-2023 03:40-0400 Heart rate 63 /min Kaylinn Dokken [facility] 04-12-2023 03:40-0400 Mean blood pressure 92 mm[Hg] Kaylinn Dokken [facility] 04-12-2023 03:40-0400 SaO2% (BldA) [Mass fraction] 99 % Kaylinn Dokken [facility] 04-12-2023 03:40-0400 Systolic blood pressure 115 mm[Hg] Kaylinn Dokken [facility] 04-12-2023 03:00-0400 Diastolic blood pressure 86 mm[Hg] Kaylinn Dokken [facility] 04-12-2023 03:00-0400 Heart rate 64 /min Kaylinn Dokken [facility] 04-12-2023 03:00-0400 Mean blood pressure 95 mm[Hg] Kaylinn Dokken [facility] 04-12-2023 03:00-0400 Systolic blood pressure 113 mm[Hg] Kaylinn Dokken [facility] 04-12-2023 01:56-0400 Body temperature 98.24 [degF] Kaylinn Dokken [facility] 04-12-2023 01:56-0400 Diastolic blood pressure 82 mm[Hg] Kaylinn Dokken [facility] 04-12-2023 01:56-0400 Heart rate 65 /min Romin Dokken [facility] 04-12-2023 01:56-0400 Respiratory rate 20 /min Brysoninn Dokken [facility] 04-12-2023 01:56-0400 SaO2% (BldA) [Mass fraction] 99 % Romin Dokken [facility] 04-12-2023 01:56-0400 Systolic blood pressure 118 mm[Hg] Brysoninn Dokken [facility] 03-19-2023 08:49-0400 Diastolic blood pressure 83 mm[Hg] Jose Minh [facility] 03-19-2023 08:49-0400 Heart rate 86 /min Jose Minh [facility] 03-19-2023 08:49-0400 Mean blood pressure 97 mm[Hg] Jose Minh [facility] 03-19-2023 08:49-0400 SaO2% (BldA) [Mass fraction] 98 % Jose Minh [facility] 03-19-2023 08:49-0400 Systolic blood pressure 124 mm[Hg] Jose Minh [facility] 03-19-2023 06:46-0400 Body temperature 97.7 [degF] Jose Minh [facility] 03-19-2023 06:46-0400 Diastolic blood pressure 88 mm[Hg] Jose Minh [facility] 03-19-2023 06:46-0400 Heart rate 89 /min Jose Mihn [facility] 03-19-2023 06:46-0400 Respiratory rate 18 /min Jose Minh [facility] 03-19-2023 06:46-0400 SaO2% (BldA) [Mass fraction] 97 % Jose Minh [facility] 03-19-2023 06:46-0400 Systolic blood pressure 130 mm[Hg] Jose Minh [facility] 11-11-2022 23:00-0500 Heart rate 72 /min Kaylinn Dokken [facility] 11-11-2022 23:00-0500 Mean blood pressure 97 mm[Hg] Kaylinn Dokken [facility] 11-11-2022 22:00-0500 Diastolic blood pressure 103 mm[Hg] Kaylinn Dokken [facility] 11-11-2022 22:00-0500 Heart rate 68 /min Kaylinn Dokken [facility] 11-11-2022 22:00-0500 Mean blood pressure 110 mm[Hg] Kaylinn Dokken [facility] 11-11-2022 20:57-0500 Body temperature 98.24 [degF] Kaylinn Dokken [facility] 11-11-2022 20:57-0500 Diastolic blood pressure 83 mm[Hg] Kaylinn Dokken [facility] 11-11-2022 20:57-0500 Heart rate 73 /min Kaylinn Dokken [facility] 11-11-2022 20:57-0500 Respiratory rate 16 /min Kaylinn Dokken [facility] 11-11-2022 20:57-0500 SaO2% (BldA) [Mass fraction] 100 % Desean Mayes [facility] 11-11-2022 20:57-0500 Systolic blood pressure 124 mm[Hg] Desean Mayes [facility] 11-11-2022 17:00-0500 Diastolic blood pressure 76 mm[Hg] Rey Barrera [facility] 11-11-2022 17:00-0500 Heart rate 87 /min Rey Bruce [facility] 11-11-2022 17:00-0500 Respiratory rate 18 /min Rey Bruce [facility] 11-11-2022 17:00-0500 SaO2% (BldA) [Mass fraction] 97 % Rey Bruce [facility] 11-11-2022 17:00-0500 Systolic blood pressure 134 mm[Hg] Rey Bruce [facility] 11-11-2022 14:59-0500 Body temperature 98.06 [degF] Rey Bruce [facility] 11-11-2022 14:59-0500 Diastolic blood pressure 83 mm[Hg] Rey Bruce [facility] 11-11-2022 14:59-0500 Heart rate 102 /min Rey Bruce [facility] 11-11-2022 14:59-0500 Respiratory rate 16 /min Rey Bruce [facility] 11-11-2022 14:59-0500 SaO2% (BldA) [Mass fraction] 99 % Rey Bruce [facility] 11-11-2022 14:59-0500 Systolic blood pressure 129 mm[Hg] Rey Barrera [facility] 06-28-2022 17:23-0400 Body temperature 98.42 [degF] Luís Greenfield [facility] 06-28-2022 17:23-0400 Diastolic blood pressure 86 mm[Hg] Luís Greenfield [facility] 06-28-2022 17:23-0400 Heart rate 102 /min Luís Greenfield [facility] 06-28-2022 17:23-0400 Respiratory rate 14 /min Luís Greenfield [facility] 06-28-2022 17:23-0400 Systolic blood pressure 123 mm[Hg] Luís Greenfield [facility] Encounters Encounter Date Encounter Type Care Provider Facility Start: 11-26-2024 End: 11-26-2024 Admission to same day surgery center Jenn Urban MD Work Phone: [facility] [place] Start: 11-26-2024 End: 11-26-2024 ambulatory Jenn Urban MD Work Phone: [facility] Work Phone: Start: 11-25-2024 End: 11-25-2024 ambulatory Marybel Will Facility:[facility] Start: 11-22-2024 ambulatory Marybel Lue Facility:[facility] Start: 10-28-2024 End: 10-28-2024 Emergency department patient visit Rey Barrera Facility:[facility] Start: 10-10-2024 End: 10-10-2024 Lab Drop off Yessy Guerrero [facility] Start: 10-10-2024 End: 10-10-2024 ambulatory Yessy Guerrero Facility:[facility] Start: 10-10-2024 End: 10-10-2024 Patient encounter procedure Yessy Guerrero [facility] Start: 07-29-2024 End: 07-29-2024 Emergency department patient visit Jose Wilkinson [facility] Start: 07-11-2024 End: 07-11-2024 Telephone encounter Sarita Resendiz RNdigital media sales consultant Comment on above: Appointment (Pre-pro cedure instructions.) Start: 07-04-2024 End: 07-04-2024 ambulatory Ole Escalante Facility:[facility] Start: 07-04-2024 End: 07-04-2024 Lab Drop off Ole Escalante [facility] Start: 06-28-2024 End: 06-28-2024 Emergency department patient visit Luís Greenfield [facility] Start: 06-11-2024 End: 06-11-2024 Emergency department patient visit Luís Greenfield Facility:[facility] Start: 05-29-2024 End: 05-29-2024 Emergency department patient visit Jose Wilkinson [facility] Start: 05-27-2024 End: 05-27-2024 ambulatory NATA MEDINA Facility:[facility] Start: 05-27-2024 End: 05-27-2024 Patient encounter procedure NATA MEDINA [facility] Start: 02-16-2024 Orders Only Abner Almazan MD Work Phone: Gastroenterology Comment on above: Generalized abdomina l pain (Primary Dx) Start: 02-13-2024 Telephone encounter Abner Gutierrez MD Work Phone: Gastroenterology Comment on above: Orders Start: 01-29-2024 ambulatory Luís Quentineric Facility: [facility] Start: 12-19-2023 End: 12-19-2023 ambulatory Luís Perla Facility:[facility] Start: 12-19-2023 End: 12-19-2023 Patient encounter procedure Luís Perla [facility] Start: 12-01-2023 End: 12-01-2023 ambulatory Luís Perla Facility:[facility] Start: 12-01-2023 End: 12-01-2023 Patient encounter procedure Luís Perla [facility] [place] Start: 10-23-2023 End: 10-23-2023 ambulatory JENN F WILMAR Facility:[facility] Start: 10-23-2023 End: 10-23-2023 Subsequent hospital visit by physician Gayle Arambula MD Work Phone: Gastroenterology Comment on above: Generalized abdomina l pain [R10.84] Start: 10-16-2023 Telephone encounter Juan Luis Oneil RNdigital media sales consultant Start: 10-02-2023 End: 10-02-2023 Patient encounter procedure Nathaniel Weeks [facility] Start: 09-20-2023 End: 09-20-2023 ambulatory JENN F URBAN Facility:[facility] Start: 09-11-2023 End: 09-11-2023 ambulatory JENN F URBAN Facility:[facility] Start: 08-22-2023 End: 08-22-2023 ambulatory JENN F URBAN Facility:[facility] Start: 08-11-2023 End: 08-11-2023 ambulatory JENN F URBAN Facility:[facility] Start: 08-01-2023 End: 08-01-2023 ambulatory PASTORA OH Facility:[facility] Start: 07-14-2023 End: 07-14-2023 Emergency department patient visit Jose Wilkinson [facility] Start: 06-22-2023 Telephone encounter Pastora Oh [...] 04-12-2023 Emergency department patient visit Desean Mayes [facility] Start: 03-19-2023 End: 03-19-2023 Emergency department patient visit Jose Wilkinson [facility] Start: 11-11-2022 End: 11-11-2022 Emergency department patient visit Desean Mayes [facility] Start: 11-11-2022 End: 11-11-2022 Emergency department patient visit Rey Brarera [facility] Start: 10-05-2022 End: 10-05-[address] DOCTOR FUNG Facility:[facility] Start: 08-14-2022 End: 08-14-[address] MARTELL WEEKS Facility:[facility] Start: 08-08-2022 End: 08-08-[address] RIMA ESTES . Facility: Start: 06-28-2022 End: 06-28-2022 Emergency department patient visit Luís Greenfield [facility] Procedures Date Procedure Procedure Detail Performing Clinician Start: 11-26-2024 Cystoscopy Jenn Urban MD Work Phone: Start: 10-23-2023 Esophagoscp rig drew soral hypopharynx crv esoph Abner Almazan MD Work Phone: Start: 10-23-2023 Colonoscopy flx dx w /collj spec when pfrmd Abner Almazan MD Work Phone: Denies Luís Gin Plan of Treatment Date Care Activity Detail Author Start: 08-11-2026 Screening for malignant neoplasm of cervix [facility] Start: 05-04-2025 Urine microalbumin profile [facility] Start: 11-26-2024 [facility] Start: 11-26-2024 [facility] Start: 08-11-2024 GC (Gonorrhea) Screening (18-24) GC (Gonorrhea) Screening (18-24) [facility] Start: 08-11-2024 Screening for Chlamydia trachomatis Chlamydia Screening (18-24) [facility] Start: 07-18-2024 End: 07-18-2024 Patient encounter procedure 07/18/2024 7:30 AM EST Appointment Gastroenterology [address] [place] [address] Gayle Arambula MD [address] [address] Generalized abdominal pain [R10.84] Gastroenterology Comment on above: Generalized abdominal pain [R10.84] Start: 05-05-2024 Covid-19 Vaccine ( season) Covid-19 Vaccine ( season) [facility] Start: 05-05-[address] [facility] Start: 09-04-2023 Behavioral Health Screening Behavioral Health Screening [facility] Start: 09-04-2023 Depression Assessment Depression Assessment [facility] Start: 05-05-2023 Covid-19 Vaccine ( season) Covid-19 Vaccine ( season) [facility] Start: 05-05-2023 Influenza vaccination Influenza Vaccine (#1) [facility] Start: 09-04-2022 Depression Assessment Depression Assessment [facility] Start: 2021 Urine microalbumin profile DTaP,Tdap,Td Vaccine (1 - Tdap) [facility] Start: 2020 Anxiety Screening Anxiety Screening [facility] Start: 2020 Chlamydia Screening () Chlamydia Screening (18-) [facility] Start: 2020 Depression Screening Depression Screening [facility] Start: 2020 GC (Gonorrhea) Screening () GC (Gonorrhea) Screening (-) [facility] Start: 2020 Hepatitis C Screening Hepatitis C Screening [facility] Start: 2020 Hepatitis C screening Hepatitis C Screening [facility] Start: 2020 HIV Screening HIV Screening [facility] Start: 2020 HIV screening HIV Screening [facility] Start: 2018 Meningococcal B Vaccine: Consider Based On Risk (1 of 2 - Patient Seeks Protection) Meningococcal B Vaccine: Consider Based On Risk (1 of 2 - Patient Seeks Protection) [facility] Start: 2016 Peds To Adult Transition Annual Assessment Peds To Adult Transition Annual Assessment [facility] Start: 11-02-2015 HPV Vaccine (2 - 2-dose series) HPV Vaccine (2 - 2-dose series) [facility] Start: 2014 Peds To Adult Transition Initial Discussion Peds To Adult Transition Initial Discussion [facility] Start: 2011 HPV Vaccine (1 - 2-dose series) HPV Vaccine (1 - 2-dose series) [facility] Start: 2002 Covid-19 Vaccine (#1) Covid-19 Vaccine (#1) [facility] Start: 2002 Hepatitis B Vaccine (1 of 3 - 3-dose series) Hepatitis B Vaccine (1 of 3 - 3-dose series) [facility] End: 07-20-2024 Ct abdomen & pelvis w/contrast material CT ABD/PEL W IVCON Radiology Routine Infection in abdomen (HCC) 1 Occurrences starting 06/21/2023 until 07/20/2024 [facility] Work Phone: Comment on above: 1 Occurrences starting 06/21/2023 until 07/20/2024 End: 02-15-2025 Flexible sigmoidoscopy study COLONOSCOPY DIAGNOSTIC Endoscopy Routine Generalized abdominal pain 1 Occurrences starting 02/16/2024 until 02/15/2025 [facility] Work Phone: Comment on above: 1 Occurrences starting 02/16/2024 until 02/15/2025 Patient Education Ureteroscopy - Discharge instructions Lithotripsy for kidney stones - Discharge instructions Ureteral stent placement - Discharge instructions Know your Meds [facility] Work Phone: Patient referral [facility] Work Phone: SURGICAL PATHOLOGY [facility] Work Phone: Comment on above: Release Upon Ordering for 1 Occurrences starting 10/23/2023, 1 [facility] Immunizations Immunization Date Immunization Notes Care Provider [facility] 08-11-2023 HPV, unspecified formulation Nathaniel Weeks [facility] 08-11-2023 Human Papillomavirus 9-valent vaccine Juan Luis Oneil RN [facility] 06-22-2020 meningococcal ACWY vaccine, unspecified formulation Jose Minh [facility] 05-04-2015 HPV, unspecified formulation Jose Minh [facility] 05-04-2015 meningococcal ACWY vaccine, unspecified formulation Jose Minh [facility] 05-04-2015 tetanus toxoid, redu natalie diphtheria toxoid, and acellular pertussis vaccine, adsorbed Jose Minh [facility] 05-23-2008 diphtheria, tetanus toxoids and acellular pertussis vaccine, unspecified formulation Juan Luis Oneil RN [facility] 05-23-2008 DTaP, unspecified formulation Jose Minh [facility] 05-23-2008 Hep A, unspecified formulation Jose Minh [facility] 05-23-2008 hepatitis A vaccine, unspecified formulation Juan Luis Oneil RN [facility] 05-23-2008 measles, mumps and rubella virus vaccine Jose Minh [facility] 05-23-2008 poliovirus vaccine, unspecified formulation Jose Minh [facility] 05-23-2008 varicella virus vaccine Jose Minh [facility] 01-04-2006 diphtheria, tetanus toxoids and acellular pertussis vaccine, unspecified formulation Juan Luis Oneil RN [facility] 01-04-2006 DTaP, unspecified formulation Jose Minh [facility] 09-29-2004 DTaP-hepatitis B and poliovirus vaccine Jose Minh [facility] 09-29-2004 haemophilus influenz ae type b vaccine, conjugate unspecified formulation Juan Luis Oneil RN [facility] 09-29-2004 Hib, unspecified formulation Jose Minh [facility] 09-29-2004 measles, mumps and rubella virus vaccine Jose Minh [facility] 09-29-2004 varicella virus vaccine Jose Minh [facility] 2002 diphtheria, tetanus toxoids and acellular pertussis vaccine, unspecified formulation Juan Luis Oneil RN [facility] 2002 DTaP, unspecified formulation Jose Minh [facility] 2002 haemophilus influenz ae type b vaccine, PRP-OMP conjugate Jose Minh [facility] 2002 poliovirus vaccine, unspecified formulation Jose Minh [facility] 2002 diphtheria, tetanus toxoids and acellular pertussis vaccine, unspecified formulation Juan Luis Oneil RN [facility] 2002 DTaP, unspecified formulation Jose Minh [facility] 2002 haemophilus influenz ae type b vaccine, PRP-OMP conjugate Jose Minh [facility] 2002 hepatitis B vaccine, pediatric or pediatric/adolescent dosage Jose Minh [facility] 2002 poliovirus vaccine, unspecified formulation Jose Minh [facility] 2002 hepatitis B vaccine, pediatric or pediatric/adolescent dosage Jose Minh [facility] NEGATED: Highlighted row has not occurred!10-10-2024 influenza virus vaccine, unspecified formulation Yessy Guerrero [facility] NEGATED: Highlighted row has not occurred!12-01-2023 influenza virus vaccine, unspecified formulation Luís Perla [facility] [place] Payers Date Payer Category Payer Self-pay 2022 Medicaid [employer] [place] [id number] 2022-Present [phone] [address] [address] [place] [address] Medicaid [id number] 2002 Unknown [id number] 2002 Unknown [id number] [id number] 2002 Unknown [id number] [id number] 2002 Unknown [id number] [id number] 2002 Unknown [id number] [id number] 2002 Unknown [id number] [id number] 2002 Unknown [id number] 2.16.840.1.084462.3.579.2.727 2002 Unknown [id number] 2.16.840.1.761059.3.579.2.727 2002 Unknown [id number] 2.16.840.1.757367.3.579.2.727 2002 Unknown [id number] 2.16.840.1.525141.3.579.2.727 2002 Unknown [id number] 2.16.840.1.115326.3.579.2.727 2002 Unknown [id number] 2.16.840.1.574327.3.579.2.727 2002 Unknown [id number] 2.16.840.1.872909.3.579.2.727 2002 Unknown [id number] 2.16.840.1.797877.3.579.2.727 2002 Unknown [id number] 2.16.840.1.570514.3.579.2.727 2002 Unknown [id number] 2.16.840.1.089449.3.579.2.727 2002 Unknown [id number] 2.16.840.1.963761.3.579.2.727 2002 Unknown [id number] 2.16.840.1.692256.3.579.2.727 2002 Unknown [id number] [id number] 1959 Unknown [id number] Unknown [id number] Social History Date Type Detail Facility Start: 11-28-2018 End: 10-10-2024 Tobacco smoking status Never smoked tobacco (finding) [facility] Start: 01-07-2023 End: 08-22-2023 Sex Assigned At Female [facility] Tobacco smoking status NHIS Tobacco smoking consumption unknown [facility] Work Phone: Start: 01-07-2023 End: 08-22-2023 History of Social function [facility] National Score (1-100), lower number is lower risk 75 [facility] Start: 2002 Sex Assigned At Not on file [facility] Start: 06-21-2023 Tobacco use and exposure Smokeless tobacco non-user [facility] Start: 06-22-2023 End: 10-23-2023 Alcohol intake Ex-drinker (finding) [facility] Start: 11-26-2024 Sex Female (finding) [facility] Start: 2002 Sex Assigned At Female F [facility] Goals Date Patient Goal Desired Activity /State Functional Status Date Assessment Result Facility 10-28-2024 Functional Status N/A [facility] 10-10-2024 Functional Status N/A [facility] 07-29-2024 Functional Status N/A [facility] 06-28-2024 Functional Status N/A [facility] 06-11-2024 Functional Status N/A [facility] 05-29-2024 Functional Status N/A [facility] 05-27-2024 Functional Status N/A [facility] 07-14-2023 Functional Status N/A [facility] 04-12-2023 Functional Status N/A [facility] 03-19-2023 Functional Status N/A [facility] 11-11-2022 Functional Status N/A [facility] 11-11-2022 Functional Status N/A [facility] 06-28-2022 Functional Status N/A [facility] Clinical Notes 06-28-2022 to 11-26-2024 Note Date & Type Note Facility 11-26-2024 Hospital Discharge instructions Additional Instructions Take Tylenol 650-1000 mg every 6 hours, alternate with ibuprofen 400-800mg every 6 hours in between for pain relief. Tamsulosin daily for stent discomfort. Take at night if you get dizzy or lightheaded, stop if unable to tolerate. Oxybutynin as needed for bladder spasms/stent pain. May cause dry mouth/eyes and constipation. Take stool softeners. You can buy AZO (phenazopyridine) [id number] and use as needed for burning with urination. This will make your urine orange. Drink plenty of water and fluids Start antibiotics the morning of stent removal in 2-3 weeks. You must follow up to ensure your stent is removed. Failure to do so may result in recurrent infections and renal failure. [facility] Work Phone: 11-25-2024 Note Patient Education Nephrology Dietary Guidelines to Help Prevent Kidney Stones Kidney stones are deposits of minerals and salts that form inside your kidneys. Your risk of developing kidney stones may be greater depending on your diet, your lifestyle, the medicines you take, and whether you have certain medical conditions. Most people can lower their risks of developing kidney stones by following these dietary guidelines. Your dietitian may give you more specific instructions depending on your overall health and the type of kidney stones you tend to develop. What are tips for following this plan? Reading food labels ??? Choose foods with no salt added or low-salt labels. Limit your salt (sodium) intake to less than 1,500 mg a day. ??? Choose foods with calcium for each meal and snack. Try to eat about 300 mg of calcium at each meal. Foods that contain 200?500 mg of calcium a serving include: ? 8 oz (237 mL) of milk, stnltfy-sikipyrufcbq-mpoim milk, and calcium-fortifiedfruit juice. Calcium-fortified means that calcium has been added to these drinks. ? 8 oz (237 mL) of kefir, yogurt, and soy yogurt. ? 4 oz (114 g) of tofu. ? 1 oz (28 g) of cheese. ? 1 cup (150 g) of dried figs. ? 1 cup (91 g) of cooked broccoli. ? One 3 oz (85 g) can of sardines or mackerel. Most people need 1,000?1,500 mg of calcium a day. Talk to your dietitian about how much calcium is recommended for you. Shopping ??? Buy plenty of fresh fruits and vegetables. Most people do not need to avoid fruits and vegetables, even if these foods contain nutrients that may contribute to kidney stones. ??? When shopping for convenience foods, choose: ? Whole pieces of fruit. ? Pre-made salads with dressing on the side. ? Low-fat fruit and yogurt smoothies. ??? Avoid buying frozen meals or prepared deli foods. These can be high in sodium. ??? Look for foods with live cultures, such as yogurt and kefir. ??? Choose high-fiber grains, such as whole-wheat breads, oat bran, and wheat cereals. Cooking ??? Do not add salt to food when cooking. Place a salt shaker on the table and allow each person to add their own salt to taste. ??? Use vegetable protein, such as beans, textured vegetable protein (TVP), or tofu, instead of meat in pasta, casseroles, and soups. Meal planning ??? Eat less salt, if told by your dietitian. To do this: ? Avoid eating processed or pre-made food. ? Avoid eating fast food. ??? Eat less animal protein, including cheese, meat, poultry, or fish, if told by your dietitian. To do this: ? Limit the number of times you have meat, poultry, fish, or cheese each week. Eat a diet free of meat at least 2 days a week. ? Eat only one serving each day of meat, poultry, fish, or seafood. ? When you prepare animal proteins, cut pieces into small portion sizes. For most meat and fish, one serving is about the size of the palm of your hand. ??? Eat at least five servings of fresh fruits and vegetables each day. To do this: ? Keep fruits and vegetables on hand for snacks. ? Eat one piece of fruit or a handful of berries with breakfast. ? Have a salad and fruit at lunch. ? Have two kinds of vegetables at dinner. ??? You may be told to limit foods that are high in a substance called oxalate. These include: ? Spinach (cooked), rhubarb, beets, sweet potatoes, and Vincentian chard. ? Peanuts. ? Potato chips, icelandic fries, and baked potatoes with skin on. ? Nuts and nut products. ? Chocolate. ??? If you regularly take a diuretic medicine, make sure to eat at least 1 or 2 servings of fruits or vegetables that are high in potassium each day. These include: ? Avocado. ? Banana. ? [place], prune, carrot, or tomato juice. ? Baked potato. ? Cabbage. ? Beans and split peas. Lifestyle ??? Drink enough fluid to keep your urine pale yellow. This is the most important thing you can do. Spread your fluid intake throughout the day. ??? If you drink alcohol: ? Limit how much you have to: ? 0?1 drink a day for women who are not . ? 0?2 drinks a day for men. ? Know how much alcohol is in your drink. In the [place] one drink equals one 12 oz bottle of beer (355 mL), one 5 oz glass of wine (148 mL), or one 1? oz glass of hard liquor (44 mL). ??? Lose weight if told by your health care provider. Work with your dietitian to find an eating plan and weight loss strategies that work best for you. General information ??? Talk to your health care provider and dietitian about taking daily supplements. Depending on your health and the cause of your kidney stones, you may be told: ? Do not take high-dose supplements of vitamin C (1,000 mg a day or more). ? To take a calcium supplement. ? To take a daily probiotic supplement. ? To take other supplements such as magnesium, fish oil, or vitamin B6. ??? Take ylwt-nor-sowexia and prescription medicines only as told by your health (more content not included)... [facility] 10-28-2024 Evaluation + Plan note Diagnostic Tests PendingUrine Culture 10/28/24 [facility] 10-28-2024 Hospital Discharge instructions Patient Education [...] Treatment for this condition includes: Antibiotic medicine. Bogg-wfv-wbsdcza medicines to treat discomfort. Drinking enough water [...] Follow these instructions at home: Medicines Take cdkw-vzg-wtlgriz and prescription medicines only as told by [...] provider. Document Revised: 03/28/2021 Document Reviewed: 04/02/2021 [employer] Patient Education 2023 [employer]. 10/28/2024 09:31:17 Kidney Stones Kidney Stones Kidney [...] Follow these instructions at home: Medicines Take yuuj-nfl-lobgcbf and prescription medicines only as told by [...] provider. Document Revised: 11/30/2022 Document Reviewed: 11/30/2022 [employer] Patient Education 2023 [employer]. Follow Up Care 10/28/2024 06:46:22 With:BRIDGET BENITO Address:Unknown When:10/31/2024 09:14:15 Comments:Please call urology office to set up close follow-up appointment. Take medications as directed. Strain all urine. Return to ED if symptoms worsen or new symptoms arise. With:Jenn Urban Address: [address] [place] [address]- Business (1) When:10/31/2024 09:14:15 [facility] 10-28-2024 Note ED Patient Education Note [...] this condition includes: ??? Antibiotic medicine. ??? Xxyg-hhs-eaatmmz medicines to treat discomfort. ??? Drinking enough [...] these instructions at home: Medicines ??? Take yeel-tny-ujnqnjy and prescription medicines only as told by [...] provider. Make rasheeda (more content not included)... [facility] 10-10-2024 Hospital Discharge instructions Patient Education 10/10/2024 [...] Treatment for this condition includes: Antibiotic medicine. Wyeb-vhf-jrnmvhb medicines to treat discomfort. Drinking enough water [...] Follow these instructions at home: Medicines Take zxrf-fll-zguuzvs and prescription medicines only as told by [...] provider. Document Revised: 03/28/2021 Document Reviewed: 04/02/2021 [employer] Patient Education 2023 [employer]. 10/10/2024 14:41:37 Pyelonephritis, Adult Pyelonephritis, Adult Pyelonephritis [...] can irritate the bladder. General instructions Take rece-xfc-mkhavus and prescription medicines as told by your [...] provider. Document Revised: 03/13/2023 Document Reviewed: 03/13/2023 [employer] Patient Education 2023 [employer]. Follow Up Care 10/10/2024 11:53:54 With:JENN URBAN Address: When: Unknown [facility] 10-10-2024 Note Patient Education Nephrology [...] irritate the bladder. General instructions ??? Take vltg-ogx-dibtsjf and prescription medicines as told by your [...] provider. Document Revised: 03/13/2023 Document Reviewed: 03/13/2023 [employer] Patient Education ? 2023 [employer]. Obstetrics and Gynecology Urinary Tract Infection, Adult [...] or diaphragm f (more content not included)... [facility] 10-10-2024 Evaluation + Plan note Diagnostic Tests PendingUrine Culture 10/10/24 [facility] 07-29-2024 Evaluation + Plan note Extrac [...] Nausea/Vomiting, # 16 tab(s), Refills(s) 0, [id number], cm, 07/29/24 6:03:00 EST, Height/Length Dosing, 64.6, kg, 07/29/24 6:03:00 EST, Weight Dosing pantoprazole, 20 mg = 1 tab(s), Oral, Daily, X 14 day(s), # 14 tab(s), Refills(s) 0, [id number] 158, cm, 07/29/24 6:03:00 EST, Height/Length Dosing, 64.6, kg, 07/29/24 6:03:00 EST, Weight Dosing sucralfate, 1 gm = 1 tab(s), Oral, QID, X 10 day(s), # 40 tab(s), Refills(s) 0, Pharmacy: [facility] #[id number], 158, cm, 07/29/24 6:03:00 EST, Height/Length Dosing, 64.6, kg, 07/29/24 6:03:00 EST, Weight Dosing .UA With Cult Reflex Basic Metabolic Panel CBC w/ Auto Diff eGFR Extra Blue Tube Hepatic Function Panel Lipase Level U Beta Hcg Qual UA with Cult Rflx [facility] 11-25-2024 Hospital Discharge instructions Patient Education [...] Follow these instructions at home: Medicines Take vohr-ibl-wxvodkc and prescription medicines only as told by [...] provider. Document Revised: 06/07/2023 Document Reviewed: 06/07/2023 [employer] Patient Education 2023 [employer]. Follow Up Care 07/29/2024 05:52:33 With:Jenn Urban Address: [address] [place] [address]. [address] [place] [address]- Business (1) When:Within 3 Day(s) [facility] 11-25-2024 NoteED Patient Education Note Gastroenterology [...] these instructions at home: Medicines ??? Take vyqt-ule-ycplqge and prescription medicines only as told by [...] provider. Document Revised: 06/07/2023 Document Reviewed: 06/07/2023 [employer] Patient Education ? 2023 [employer].[facility] 07-11-2024 Telephone encounter Note* Telephone Encounter - [...] have family/friend present for procedure transport home:Patient/patient apparel trimmings sales representative was told that if they do [...] area. 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 Type of instruction given: Verbal by telephone contact. Sarita Resendiz RN [facility]11-07-2024 Miscellaneous Notes* Telephone Encounter - Sarita [...] have family/friend present for procedure transport home:Patient/patient apparel trimmings sales representative was told that if they do [...] area. 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 Type of instruction given: Verbal by telephone contact. Sarita Resendiz RN [facility] Evaluation + Plan note Diagnostic Tests Pending * HSV Cult & Typing 07/04/24 [facility] 10-25-2024 Hospital Discharge instructions Patient Education [...] Treatment for this condition includes: Antibiotic medicine. Sfih-toq-isiarui medicines to treat discomfort. Drinking enough water [...] Follow these instructions at home: Medicines Take echy-yqp-qyqsuha and prescription medicines only as told by [...] provider. Document Revised: 03/28/2021 Document Reviewed: 04/02/2021 [employer] Patient Education 2023 [employer]. Follow Up Care 06/28/2024 14:47:32 With:Jenn Urban Address: [address] [place] [phone]- Business (1) When:07/01/2024 16:50:51 [facility] 10-25-2024 NoteED Patient Education Note Obstetrics [...] this condition includes: ??? Antibiotic medicine. ??? Qydw-svl-jmixtuf medicines to treat discomfort. ??? Drinking enough [...] these instructions at home: Medicines ??? Take ojsa-iim-oaelpww and prescription medicines only as told by [...] care provider. Make rasheeda (more content not included)...[facility] Evaluation + Plan note Diagnostic Tests Pending * Chlam/GC/Trich,JERMAINE 06/28/24 * Urine Culture 06/28/24 [facility] [id number] Hospital Discharge instructions Patient Education 06/11/2024 12:23:12 [...] Treatment for this condition includes: Antibiotic medicine. Rfzi-zzk-syslgtk medicines to treat discomfort. Drinking enough water [...] Follow these instructions at home: Medicines Take fipu-yfn-mxbwwdt and prescription medicines only as told by [...] provider. Document Revised: 03/28/2021 Document Reviewed: 04/02/2021 [employer] Patient Education 2023 [employer]. 06/11/2024 12:23:12 Constipation, Adult Constipation, Adult Constipation [...] as fried or sweet foods. These include icelandic fries, hamburgers, cookies, candies, and soda. Drink enough fluid to keep your urine pale yellow. General instructions Exercise regularly or as told by your health care provider. Try to do 150 minutes of moderate exercise each week. Use the bathroom when you have the urge to go. Do not hold it in. Take wgbt-prv-gwcqrfg and prescription medicines only as told by [...] to keep your urine pale yellow. Take rqxy-hln-ygciykv and prescription medicines only as told by your health care provider. This includes any fiber supplements. This information is not intended to replace advice given to you by your health care provider. Make sure you discuss any questions you have with your health care provider. Document Revised: 07/05/2023 Document Reviewed: 07/05/2023 [employer] Patient Education 2023 [employer]. Follow Up Care 06/11/2024 10:36:26 With:Jenn Urban Address: [address] [place], [place] [id number] Business (1) When:06/14/2024 12:17:21 [facility] 10-08-2024 Evaluation + Plan note Diagnostic Tests Pending * Urine Culture 06/11/24 [facility] 10-08-2024 NoteED Patient Education Note Gastroenterology [...] as fried or sweet foods. These include icelandic fries, hamburgers, cookies, candies, and soda. ? Drink enough fluid to keep your urine pale yellow. General instructions ? Exercise regularly or as told by your health care provider. Try to do 150 minutes of moderate exercise each week. ? Use the bathroom when you have the urge to go. Do not hold it in. ? Take xgub-gvc-uhnqwum and prescription medicines only as told by [...] keep your urine pale yellow. ? Take wrfs-lmt-wxbjiwj and prescription medicines only as told by your health care provider. This includes any fiber supplements. This information is not intended to replace advice given to you by your health care provider. Make sure you discuss any questions you have with your health care provider. Document Revised: 07/05/2023 Document Reviewed: 07/05/2023 [employer] Patient Education ? 2023 [employer]. Obstetrics and Gynecology Urinary Tract Infection, Adult [...] be confusion. In tanya (more content not included)...[facility]09-25-2024 Evaluation + Plan note Extracted from: Title:ED Note Author:Jose Wilkinson DOStormy Date :05/29/24 Otitis externa of both ears (H60.93: Unspecified otitis externa, bilateral) Orders: polymyxin B-trimethoprim ophthalmic, 4 drop(s), Soln-Opth, Ear-Both, Once, Stop date 05/29/24 2:41:00 EDT, STAT, Start date 05/29/24 2:41:[address] [facility] [id number] Hospital Discharge instructions Patient Education 05/29/2024 03:05:04 [...] if you start to feel better. Take tizr-ycb-qlnxvnv and prescription medicines only as told by [...] provider. Document Revised: 11/03/2021 Document Reviewed: 11/03/2021 [employer] Patient Education 2023 [employer]. Follow Up Care 05/29/2024 01:48:33 With:Jenn Urban Address: [address] [place] [address]. [address] Business (1) When:Within 3 Day(s) [facility] 09-25-2024 NoteED Patient Education Note Infectious [...] you start to feel better. ? Take ilmb-gnh-prtmwab and prescription medicines only as told by [...] provider. Document Revised: 11/03/2021 Document Reviewed: 11/03/2021 [employer] Patient Education ? 2023 [employer]ivSystemsSt[facility] Discharge instructions Patient Education [...] Centers for Disease Control and Prevention: cdc.gov [place] [employer] Association: heart.org National Heart, Lung, and Blood [place]: nhlbi.nih.gov This information is not intended to replace advice given to you by your health care provider. Make sure you discuss any questions you have with your health care provider. Document Revised: 05/11/2023 Document Reviewed: 05/04/2023 [employer] Patient Education 2023 [employer] 05/27/2024 13:56:37 Otitis Media, Adult, Eefl-jl-Cggd Otitis Media, Adult Otitis media is a [...] pain. Follow these instructions at home: Take xked-sro-wnestez and prescription medicines only as told by [...] provider. Document Revised: 11/29/2021 Document Reviewed: 11/29/2021 [employer] Patient Education 2023 [employer] 05/27/2024 13:56:30 Ear Drops, Adult, Lvxp-ps-Moir Ear Drops, Adult Your doctor has found [...] cannot use soap and water, use hand data entry operator. 2.Make sure your ears are clean and [...] you cannotuse soap and water, use hand data entry operator. Follow these instructions at home: Use the [...] provider. Document Revised: 01/24/2023 Document Reviewed: 01/02/2023 [employer] Patient Education 2023 [employer]. Follow Up Care 05/27/2024 12:39:57 With:Wilmar PIERCE, DIANA Alejandre Address:Unknown When: Unknown [facility] 09-23-2024 NotePatient Education Caregiving Ear [...] cannot use soap and water, use hand data entry operator. 2. Make sure your ears are clean [...] cannot use soap and water, use hand data entry operator. Follow these instructions at home: ? Use [...] provider. Document Revised: 01/24/2023 Document Reviewed: 01/02/2023 [employer] Patient Education ? 2023 [employer]. ENT Otitis Media, Adult Otitis media is [...] these instructions at home: (more content not included)...[facility]06-14-20[facility] Telephone encounter Note* Telephone Encounter - Ines Watts LPN - 02/16/2024 4:12 PM EDT Nurse called patient no answer message left to call office. Ines Watts LPN February 16, 2024 4:[address] [facility]06-14-2024 Miscellaneous Notes* Telephone Encounter - Ines [...] calling: self Call patient at: on cell [phone] (home) [phone] (cell) Was an appointment scheduled: No Closing statement: Symptom Call: Thank you for calling [facility], your call is very important. A nurse will call in approximately 2-4 hours during business hours. If this is an emergency, please contact 911. Mirna Melendez documented [facility] Instructions* Patient Instructions* Abner Almazan MD [...] If you do not have a responsible experienced truck driver (family member or friend) withyou to [...] to (three) 3 hours before your exam. 08/[address] [facility] Telephone encounter Note * Telephone Encounter [...] Watts LPN February 13, 2024 9:[address] [facility]06-11-2024 Telephone encounter Note* Telephone Encounter - [...] calling: self Call patient at: on cell [phone] (home) [phone] (cell) Was an appointment scheduled: No Closing statement: Symptom Call: Thank you for calling [facility], your call is very important. A nurse will call in approximately 2-4 hours during business hours. If this is an emergency, please contact 911. Mirna Melendez [facility]03-29-2024 Evaluation + Plan note Future Scheduled Tests Radiology* MRI Breast w/o and w/ Contrast, Bilat 12/01/23 [facility] General Surgery [place] [id number] Nurse Note* Gunjan Reid RN - 10/23/2023 [...] RN In Department: GASTROENTEROLOGY documented [facility] NoteQ3 Patient Name: Sherie Rizvi Procedure Date: 10/23/2023 12:17 PM Date of : 2000 Admit Type: Outpatient Age: 23 Gender: Female Note Status: Finalized Attending MD: Gayle Arambula MD, [id number] Procedure: Upper GI endoscopy Indications: Dysphagia Providers: [...] pathology results. Procedure Code(s): --- Professional --- 28976 Diagnosis Code(s): --- Professional --- R13.10 CPT copyright 2020 [employer]. All rights reserved. Attending Participation: I personally performed the entire procedure. Scope In: 12:35:35 PM Scope Out: 12:42:47 PM MD Gayle Sher MD 10/23/2023 12:56:10 PM This report has been signed electronically by Gayle Arambula MD Number of Addenda: 0 Note Initiated On: 10/23/2023 12:17 [facility]02-12-2024 Miscellaneous Notes* Telephone Encounter - Juan Luis Oneil RN - 10/16/2023 12:10 PM EST Attempted to reach the patient at the contact number that they provided [phone] (home) . 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 [...] Number to call with questions or concerns [phone] Number to call to cancel their procedure [phone] Juan Luis Oneil RN [facility]24 NoteHNO ID: [id number] Author: ABNER ALMAZAN MD Service: ? Author Type: Physician Type: Progress Notes Filed: 09/11/2023 12:06 Note Text: NAME: Sherie Rizvi New Patient Zoom Visit AGE: [age] year old I have communicated my name and active licensure. The patient's identity and physical location were verified at the time of this visit. Either the patient or their legal apparel trimmings sales representative has been informed of the risks and benefits of -- and alternatives to -- treatment through a remote evaluation and consents to proceed with the evaluation remotely. Referred by: Levi Johnson MD [id number] [facility] [id number] Referred for: an opinion regarding abdominal pain, [...] Past Histories independently gathered by the clinical technical support professional and the remaining scribed note accurately describes [...] pancreatic disease. BM frequen (more content not included)...[facility]12-19-2023 NoteHNO ID: [id number] Author: Levi Johnson MD Service: ? Author [...] physician/QHCP Medical Decision Making Level: 4 - ModerateSelect [facility]12-[facility]-2023 NoteHNO ID: [id number] Author: Leonie Tiwari MD Service: ? Author [...] OB History No obstetric history on file. 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 Leonie Tiwari, [facility]11-28-2023 NoteHNO ID: [id number] Author: Pastora Oh MD Service: ? Author Type: Physician Type: Progress Notes Filed: 08/01/2023 2:01 PM Note Text: VIRTUAL VISIT PROGRESS NOTE This is a virtual visit using Point Zoom Video Visit. It required patient-provider interaction for the medical decision making as documented below. I have communicated my name and active licensure. The patient's identity and physical location were verified at the time of this visit. Either the patient or their legal apparel trimmings sales representative has been informed of the risks [...] She can reach out to me through Point if she has further questions or concerns. She is comfortable with this plan. There are no Patient Instructions on file for this visit. I spent a total of 15 minutes on the date of the service which included preparing to see the patient, pjfo-xq-kagn patient care, and completing clinical documentation Pastora Oh, [facility]11-10-2023 Evaluation + Plan note Extracted from: Title:ED Note Author:Jose Wilkinson DO Date :07/14/23 Acute COVID-19 (U07.1: COVID -19) Orders: acetaminophen, 650 mg = 2 tab(s), Tab, Oral, Once, Stop date 07/14/23 5:35:00 EST, STAT, Start date 07/14/23 5:35:00 EST, 07/14/23 5:35:00 EST ondansetron, 4 mg = 1 tab(s), Oral, q8hr, PRN Nausea/Vomiting, # 20 tab(s), Refills(s) 0, [id number], 158, cm, 01/23/23 22:00:00 EDT, Height/Length Dosing, 57, kg, 01/23/23 22:00:00 EDT, Weight Dosing penicillin V potassium, 500 mg = 1 tab(s), Oral, q6hr, # 40 tab(s), Refills(s) 0, [facility]acy: [id number], 157.5, cm, 09/29/21 1:19:00 EST, Height/Length Dosing, 56.1, kg, 09/29/21 1:19:00 EST, Weight Dosing Extra Green Li Tube Extra Lav Tube Influenza A&B Ag Mononucleosis Screen Rapid COVID Antigen ([facility]) Future Appointments Appointment Date:07/17/2023 07:00:00 AM Scheduled Provider: Location:.[facility] Appointment Type:CT Abdomen/Pelvis Combo () Future Scheduled Tests Radiology* CT Abdomen/Pelvis w/ Contrast 07/17/23 [facility]11-10-2023 Hospital Discharge instructions Patient Education 07/14/2023 [...] managed at home with rest, fluids, and gute-esi-zanixwt medicines. Serious symptoms may be treated in [...] water are not available, use alcohol-based hand data entry operator. Make sure that all people in your [...] managed at home with rest, fluids, and xqjj-kgy-puwnzkq medicines. This information is not intended to replace advice given to you by your health care provider. Make sure you discuss any questions you have with your health care provider. Document Revised: 08/11/2022 Document Reviewed: 08/11/2022 [employer] Patient Education 2022 [employer]. Follow Up Care 07/14/2023 05:18:44 With:Jenn Urban Address: [address] [place] [address]. [address] [place] [phone]- Business (1) When:Within 3 Day(s) [facility]10-19-2023 Miscellaneous Notes* Telephone Encounter - Jonna [...] may have the CT done at a [facility] facility. No further questions at this time. [...] she found some more information on her [employer], LL[employer] records from [facility] in [place]. She said she had a CT done [...] a call back for any further recommendation. [phone] (cell) documented [facility] History of Present illness Narrative* Pastora [...] Visit on 06/21/23 CT ABD/PEL W IVCON JÚNIORZESS 145 mcg capsule loratadine (CLARITIN) 10 mg [...] 22-year-old female who 3 months ago presented tothe ER with abdominal pain. This was thought [...] nodes. Pastora Oh MD documented [facility] Instructions* Patient Instructions* Pastora Oh MD - 06/21/2023 2:27 PM EDT Obtain the CT scan on or after 07/13. We will set up a Virtual Visit or Telephone follow up. documented in this [facility] History of Present illness Narrative* Analilia [...] discussing with patient and chart review, the patient/appointment scheduler were instructed to schedule with General Surgery Appointment was scheduled with Dr. Adriano Bowman APRN.ANNE June 19, 2023 11:00 AM documented in this [facility] Evaluation + Plan note Extracted from: Title:ED Note Author:Desean Mayes DO Date :04/12/23 Renal colic on right side (N 23: Unspecified renal colic) Orders: acetaminophen-hydrocodone, 1 EA, Tab, Oral, Once, Stop date 04/12/23 3:26:00 EDT, STAT, Start date 04/12/23 3:26:00 EDT acetaminophen-hydrocodone, 1 tab(s), Oral, q6hr for pain for 3 day(s), 10 tab(s), Refill(s) 0, [facility]/pharmacy #[id number], 157.4, cm, 04/12/23 2:00:00 EDT, Height/Length Dosing, 56, kg, 04/12/23 2:00:00 EDT, Weight Dosing ondansetron, 4 mg = 1 tab(s), Oral, q8hr, # 12 tab(s), Refills(s) 0, Pharmacy: [facility]/pharmacy #[id number], 157.4, cm, 04/12/23 2:00:00 EDT, Height/Length Dosing, 56, kg, 04/12/23 2:00:00 EDT, Weight Dosing orphenadrine, 60 mg = 2 mL, Injection, IV Push, Once, Stop date 04/12/23 2:05:00 EDT, STAT, Start date 04/12/23 2:05:00 EDT, 04/12/23 2:05:00 EDT tamsulosin, 0.4 mg = 1 cap(s), Oral, Daily, # 10 cap(s), Refills(s) 0, Pharmacy: [facility]/pharmacy #[id number], 157.4, cm, 04/12/23 2:00:00 EDT, Height/Length Dosing, 56, kg, 04/12/23 2:00:00 EDT, Weight Dosing Automated Diff Basic Metabolic Panel CBC w/ Auto Diff CT Abdomen/Pelvis w/o Contrast eGFR U Beta Hcg Qual UA With Cult Reflex [facility]08-09-2023 Hospital Discharge instructions Patient Education 04/12/2023 04:17:58 Renal Colic, Revf-mn-Qokw Renal Colic Renal colic is pain that is caused by a kidney stone. The pain can be sharp and very bad. It may befelt in the back, belly, side (flank), or groin. It can cause nausea. Renal colic can come and go. Follow these instructions at home: Medicines Take rpbg-ghg-lfeibrx and prescription medicines only as told by [...] is caused by a kidney stone. Take tbsp-lpj-wovzgkd and prescription medicines only as told by [...] provider. Document Revised: 04/25/2022 Document Reviewed: 04/25/2022 [employer] Patient Education 2022 [employer]. Follow Up Care 04/12/2023 01:50:41 With:Ky CONNELLY Address: [facility] [address], [place] [address]- Business (1) When:04/15/2023 Comments:Take the Flomax once daily until you have completed the course. You can use the pain medication, nausea medication as prescribed as needed for pain. Please follow-up with your primary care doctor in addition to urology for further evaluation and management. Please return to the ED for any new or wor sening symptoms or With:Jenn Urban Address: [address] [place] [address]. [address] [place] [address]- Business (1) When:04/15/2023 [facility]07-16-2023 Evaluation + Plan noteExtracted from: Title:ED [...] Saline Lock Insert UA With Cult Reflex [facility]07-16-2023 Hospital Discharge instructions Patient Education 03/19/2023 [...] medicines. These include steroids, antibiotics, and some soxb-pyt-rjujwoe medicines, such as aspirin or ibuprofen. Having [...] Follow these instructions at home: Medicines Take qujx-xpq-pvslipo and prescription medicines only as told by [...] provider. Document Revised: 12/25/2021 Document Reviewed: 12/25/2021 [employer] Patient Education 2022 [employer]. Follow Up Care 03/19/2023 06:39:46 With:Jenn Urban Address: [address] [place] [address]. [address] [place] [id number] [facility] (1) When:03/22/2023 08:34:35 Comments:Call the office of [...] weakness, or any new or worsening symptoms. [facility]03-11-2023 Hospital Discharge instructions Patient Education 11/11/2022 22:54:11 Constipation, Adult, Jiwa-wh-Hvlm Constipation, Adult Constipation is when a person: [...] in fiber, or overly processed, such as: ?English fries. ?Hamburgers. ?Cookies. ?Candy. ?Soda. Drink enough fluid to keep your pee (urine) clear or pale yellow. General instructions Exercise regularly or as told by your doctor. Go to the restroom when you feel like you need to poop. Do not hold it in. Take uijd-hoo-kjxeffb and prescription medicines only as told by [...] 02/06/2009 Document Revised: 08/03/2018 Document Reviewed: 02/08/2017 [employer] Patient Education 2020 [employer]. Follow Up Care 11/11/2022 20:55:30 With:Jenn Urban Address: [address] [place] [address]. [address] [place] [phone] Business (1) When:11/14/2022 Comments:Follow-up with your primary care provider in 3 to 5 days. If symptoms worsen, do not improve, or new symptoms arise please report back to emergency department for further evaluation. [facility]03-10-2023 Hospital Discharge instructions Patient Education 11/11/2022 17:32:24 Kidney Stones, Ujfh-oc-Xncm Kidney Stones Kidney stones are rock-like masses [...] Follow these instructions at home: Medicines Take ruqt-hsc-sipssvh and prescription medicines only as told by [...] 02/06/2009 Document Revised: 01/07/2020 Document Reviewed: 01/07/2020 [employer] Patient Education 2020 [employer]. 11/11/2022 17:32:24 Constipation, Adult, Kwyb-bc-Riuf Constipation, Adult Constipation is when a person: [...] in fiber, or overly processed, such as: ?English fries. ?Hamburgers. ?Cookies. ?Candy. ?Soda. Drink enough fluid to keep your pee (urine) clear or pale yellow. General instructions Exercise regularly or as told by your doctor. Go to the restroom when you feel like you need to poop. Do not hold it in. Take cshj-gxh-vazgrgb and prescription medicines only as told by [...] 02/06/2009 Document Revised: 08/03/2018 Document Reviewed: 02/08/2017 [employer] Patient Education 2020 [employer]. Follow Up Care 11/11/2022 14:54:15 With:Jenn Urban Address: [address] [place] [address]- Business (1) When:11/14/2022 17:11:36 Comments:Follow-up with your primary care provider in 3 to 5 days. If symptoms worsen, do not improve, or new symptoms arise please report back to emergency department for further evaluation. [facility]03-10-2023 Evaluation + Plan noteExtracted from: Title:ED Note Author:Gorge MAXWELL, Joon Dang te:11/11/22 Abdominal pain (R10.9: Unspe cified abdominal pain) Constipation (K59.00: Constipation, unspecified) Orders: dicyclomine, 10 mg = 1 cap(s), Oral, QID, X 7 day(s), # 28 cap(s), Refills(s) 0, Pharmacy: [facility]/pharmacy #[id number], 158, cm, 11/11/22 15:01:00 [...] taking, # 527 gram, Refills(s) 0, Pharmacy: [facility]/pharmacy #[id number], 158, cm, 11/11/22 15:01:00 EST, Height/Length Dosing, 57, kg, 11/11/22 15:01:00 EST, Weight Dosing U Beta Hcg Qual UA With Cult Reflex Urine Culture XR Abdomen 1 View Diagnostic Tests Pending * Urine Culture 11/11/22 [facility]03-10-2023 Evaluation + Plan noteExtracted from: Title:ED Note Author:Joon Pennington PA-C te:11/11/22 Constipation (K59.00: Consti pation, unspecified) Nausea (R11.0: Nausea) Orders: dicyclomine, 20 mg = 2 mL, Injection, IntraMuscular, Once, Stop date 11/11/22 21:57:00 EST, STAT, Start date 11/11/22 21:57:00 EST, 11/11/22 21:57:00 EST dicyclomine, 10 mg = 1 cap(s), Oral, QID, X 7 day(s), # 28 cap(s), Refills(s) 0, Pharmacy: [facility]/pharmacy #[id number], 158, cm, 11/11/22 15:01:00 [...] mL, Oral, Once, 300 mL, Refill(s) 0, [facility]/pharmacy #[id number], 158, cm, 11/11/22 15:01:00 EST, Height/Length Dosing, 57, kg, 11/11/22 15:01:00 EST, Weight Dosing mineral oil, 133 mL, Rectal, Once for constipation, 133 mL, Refill(s) 0, [facility]/pharmacy #[id number], 158, cm, 11/11/22 15:01:00 EST, Height/Length Dosing, 57, kg, 11/11/22 15:01:00 EST, Weight Dosing ondansetron, 4 mg = 1 tab(s), Tab-Dis, Oral, Once, Stop date 11/11/22 21:07:00 EST, STAT, Start date 11/11/22 21:07:00 EST, 11/11/22 21:07:00 EST polyethylene glycol 3350, 17 gram, Oral, Daily, dissolve in water before taking, # 527 gram, Refills(s) 0, Pharmacy: [facility]/pharmacy #[id number], 158, cm, 11/11/22 15:01:00 EST, Height/Length Dosing, 57, kg, 11/11/22 15:01:00 EST, Weight Dosing U Beta Hcg Qual UA With Cult Reflex Urine Culture XR Abdomen [address] [facility]10-25-2022 Hospital Discharge instructions Patient Education 06/28/2022 [...] Follow these instructions at home: Medicines Take wsmf-tbw-ztpbkeo and prescription medicines only as told by [...] of a condition that needs treatment. Take sojz-lox-ecnxszw and prescription medicines only as told by [...] 02/17/2012 Document Revised: 09/09/2019 Document Reviewed: 09/09/2019 [employer] Patient Education 2020 [employer] 06/28/2022 19:00:07 Upper Respiratory Infection, Adult Upper [...] medicines to help relieve symptoms, such as: Vdvk-cbq-ezryvck cold medicines. Cough suppressants. Coughing is a [...] and other clear broths. General instructions Take zpzn-mbz-qumjhpu and prescription medicines only as told by [...] and water are not available, use hand data entry operator. ?Avoid touching your mouth, face, eyes, or [...] 2002 Document Revised: 08/29/2019 Document Reviewed: 04/06/2018 [employer] Patient Education NaHere Follow Up Care 06/28/2022 17:22:04 With:Jenn Urban Address: [address] [place] [address]. [address] [place] [phone]- Business (1) When:07/01/2022 18:46:11 [facility]10-25-2022 Evaluation + Plan note Diagnostic Tests Pending * Group A Strep by PCR [facility]22 [facility] Diagnosis Abnormal CT of the abdomen- Primary Nonspecific (abnormal) findings on radiological and other examination of abdominal area, including retroperitoneum Infection in abdomen (HCC) Unspecified peritonitis [facility] Diagnosis Generalized abdominal pain Abdominal pain, generalized Other constipation Mesenteric panniculitis (HCC) Sclerosing mesenteritis Esophageal dysphagia Dysphagia, pharyngoesophageal phase documented [facility] this [facility] Diagnosis Generalized abdominal pain- Primary Abdominal pain, generalized documented in this encounter [facility] noteNo assessment information availableUniversity Hospitals St. [facility] Work Phone: Hospital course Narrative No data available for this section [facility] No data available for this section [facility] Progress note No data available for this section [facility] (narrative)* Outpatient Procedure (Routine) - Closed Specialty Diagnoses / Procedures Referred By Contdayton t Referred To Contact [facility] Diagnoses Esophageal dysphagia Procedures EGD - THERAPEUTIC, EUS, OR TUBE INTERVENTIONS EGD BALLOON DILATION ESOPHAGUS <30 MM DIAM Abner Almazan MD [facility] [address] [place] [address] [address] Referral ID Status Reason Start Date Expiration Date V isits Requested Visits Authorized [id number] Closed Auto-Generate d Referral 09/11/2023 09/11/2024 1 1 * Outpatient Procedure (Routine) - Closed Specialty Diagnoses / Procedures Referred By Geronimoac t Referred To Contact [facility] Diagnoses Generalized abdominal pain Other constipation Mesenteric panniculitis (HCC) Procedures COLONOSCOPY DIAGNOSTIC COLONOSCOPY FLX DX W/COLLJ SPEC WHEN Abner De La Torre MD [employer] [address] [place] [address] [place] [phone] Referral ID Status Reason Start Date Expiration Date V isits Requested Visits Authorized [id number] Closed Auto-Generate d Referral 09/11/2023 09/11/2024 1 1 [facility] for referral (narrative)* Outpatient Procedure (Routine) - Pending Review Specialty Diagnoses / Procedures Referred By Stephen watson Referred To Contact [facility] Diagnoses Generalized abdominal pain Procedures COLONOSCOPY DIAGNOSTIC COLONOSCOPY FLX DX W/COLLJ SPEC WHEN Abner De La Torre MD [employer] [address] [place] [address] [place] [phone] Referral ID Status Reason Start Date Expiration Date Visits Requested Visits Authorized [id number] Pending Review Auto-Generat ed Referral 02/16/2024 02/15/2025 1 1 [facility] for visit Narrative* Outpatient Procedure (Routine) - Closed Specialty Diagnoses / Procedures Referred By Stephen t Referred To Contact [facility] Diagnoses Esophageal dysphagia Procedures EGD - THERAPEUTIC, EUS, OR TUBE INTERVENTIONS EGD BALLOON DILATION ESOPHAGUS <30 MM DIAM Abner Almazan MD [employer] [address] [place] [address] [facility] [place] [address] [place] [address] Referral ID Status Reason Start Date Expiration Date V isits Requested Visits Authorized [id number] Closed Auto-Generate d Referral 09/11/2023 09/11/[address] [facility] Summary Purpose Family History No Family History Records Found Relationship Condition Age at Onset Recorded Date/T marco grandparent Cerebrovascular accident (CVA) Unknown mother Overdose Unknown Advance Directives No Advanced Directives Records Found Advance Directive Response Recorded Date/ Time Advance Directives No November 26 1:26pm Reason for Referral Specialty Diagnoses / Procedures Referred By Contac t Referred To Contact CT IMAGING Diagnoses Infection in abdomen (HCC) Procedures CT ABD/PEL W IVCON CT ABD & PELVIS W/CONTRAST Pastora Oh MD [address] [address] [address] [id number] Referral ID Status Reason Start Date Expiration Date Visits Requested Visits Authorized [id number] Pending Review Auto-Generat ed Referral 3 07/20/2024 1 1 Chief Complaint and Reason for Visit Chief Complaint Admit Date right ureteral stome w/hydronephrosis [facility] 2024 1:24pm Additional Source Comments Patient Care team informatio n (unrecognized section and content) Merchandise Pickup/Receiving Associate Relationship Specialty Start Date End Date Jenn Urban MD [address] [phone] PCP - General Family Medicine 08/03/23 Jenn Urban MD [address] [address] Referring Family Medicine 08/12/23 Merchandise Pickup/Receiving Associate Relationship Specialty Start Date End Date Jenn Urban MD [address] [phone] PCP - General Family Medicine 08/03/23 Jenn Urban MD [address] [place] [phone] Referring Family Medicine 08/12/23 Merchandise Pickup/Receiving Associate Relationship Specialty Start Date End Date Jenn Urban MD [address] [place] [phone] PCP - General Family Medicine 08/03/23 Jenn Urban MD [address] [place] [phone] Referring Family Medicine 08/12/23 Merchandise Pickup/Receiving Associate Relationship Specialty Start Date End Date Jenn Urban MD [address] [place] [phone] PCP - General Family Medicine 08/03/23 Jenn Urban MD [address] [place] [phone] Referring Family Medicine 08/12/23 Team Status: Active Member Role Status Dates Jenn Urban MD Primary Care Provider Active Team Status: Inactive Member Role Status Dates Marybel Will MD Attending Provider Active Start : November 26, 2024 End: November 26, 2024 Jenn Urban MD Primary Care Provider Active Start: November 26, 2024 End: November 26, 2024 INFORMATION SOURCE (unrecogn ized section and content) DATE CREATED AUTHOR 11/19/2022 [facility] DATE CREATED AUTHOR AUTHOR'S ORGANIZ ATION 06/13/2024 [facility] DATE CREATED AUTHOR AUTHOR'S ORGANIZ ATION 06/30/2024 [facility] DATE CREATED AUTHOR AUTHOR'S ORGANIZ ATION 07/01/2024 [facility] DATE CREATED AUTHOR AUTHOR'S ORGANIZ ATION 07/06/2024 [facility] DATE CREATED AUTHOR AUTHOR'S ORGANIZ ATION 07/10/2024 [facility] DATE CREATED AUTHOR AUTHOR'S ORGANIZ ATION 07/13/2024 [facility] DATE CREATED AUTHOR AUTHOR'S ORGANIZ ATION 07/30/2024 [facility] DATE CREATED AUTHOR AUTHOR'S ORGANIZ ATION 07/31/2024 [facility] DATE CREATED AUTHOR AUTHOR'S ORGANIZ ATION 10/12/2024 [facility] DATE CREATED AUTHOR AUTHOR'S ORGANIZ ATION 10/13/2024 [facility] DATE CREATED AUTHOR AUTHOR'S ORGANIZ ATION 10/14/2024 [facility] DATE CREATED AUTHOR AUTHOR'S ORGANIZ ATION 10/18/2024 [facility] DATE CREATED AUTHOR AUTHOR'S ORGANIZ ATION 10/28/2024 [facility] DATE CREATED AUTHOR AUTHOR'S ORGANIZ ATION 10/29/2024 [facility] DATE CREATED AUTHOR AUTHOR'S ORGANIZ ATION 10/31/2024 [facility] DATE CREATED AUTHOR AUTHOR'S ORGANIZ ATION 11/26/2024 [facility] DATE CREATED AUTHOR AUTHOR'S ORGANIZ ATION 11/30/2024 [facility] Source Comments (unrecognize d section and content) In the event this informatio n is protected by the Federal Confidentiality of Alcohol and Drug Abuse Patient Records regulations: The Federal rules restrict any use of the information to criminally investigate or prosecute any alcohol or drug abuse patient.[facility] the event this information is protected by the Federal Confidentiality of Alcohol and Drug Abuse Patient Records regulations: The Federal rules restrict any use of the information to criminally investigate or prosecute any alcohol or drug abuse patient.[facility] the event this information is protected by the Federal Confidentiality of Alcohol and Drug Abuse Patient Records regulations: The Federal rules restrict any use of the information to criminally investigate or prosecute any alcohol or drug abuse patient.[facility] the event this information is protected by the Federal Confidentiality of Alcohol and Drug Abuse Patient Records regulations: The Federal rules restrict any use of the information to criminally investigate or prosecute any alcohol or drug abuse patient.[facility] the event this information is protected by the Federal Confidentiality of Alcohol and Drug Abuse Patient Records regulations: The Federal rules restrict any use of the information to criminally investigate or prosecute any alcohol or drug abuse patient.[facility] the event this information is protected by the Federal Confidentiality of Alcohol and Drug Abuse Patient Records regulations: The Federal rules restrict any use of the information to criminally investigate or prosecute any alcohol or drug abuse patient.[facility] the event this information is protected by the Federal Confidentiality of Alcohol and Drug Abuse Patient Records regulations: The Federal rules restrict any use of the information to criminally investigate or prosecute any alcohol or drug abuse patient.[facility] the event this information is protected by the Federal Confidentiality of Alcohol and Drug Abuse Patient Records regulations: The Federal rules restrict any use of the information to criminally investigate or prosecute any alcohol or drug abuse patient.[facility] Reason for Visit (unrecogniz ed section [...] BE BASED ON THE PRIMARY CLINICAL RECORDS. [facility] tocario [facility]. provides no warranty or guarantee of the accuracy or completeness of information in this document.
--- NOTE | 2024-12-03 01:38 | ED_ITS ---
HPI HPI - General Adult General Chief complaint: Abdominal Pain Stated complaint: POST SURGERY COMPLICATION Time Seen by Provider: 12/03/24 00:32 Source: patient Mode of arrival: walk-in Limitations: no limitations History of Present Illness HPI narrative: This 24-year-old female with a history of kidney stones presents for evaluation of right-sided flank pain with nausea. The patient had a stent placed at [facility] [address] last Monday. She states she was discharged home with Toradol and Flomax. She did not receive any additional pain medication but did receive Vicodin from this emergency department when she was diagnosed with a 7 mm kidney stone on November 21. She states that she has nausea and no appetite. She has burning with urination and blood in her urine. She has not had a fever or chills. She has no chest pain or shortness of breath. She denies the possibility of . She states she called the office due to her ongoing pain before they close last and they told her to continue taking her pain medications and call them Monday if her symptoms had not resolved. She states she called them on Monday but they did not get back to her. Related Data Previous Rx's ?Medication ?Instructions ?Recorded hydrocodone 5 mg-acetaminophen 325 1 tab PO Q6H PRN pain 3 days #12 07/01/24 mg tablet tabs ketorolac 10 mg tablet 10 mg PO TID PRN pain #10 tabs 07/01/24 lidocaine 5 % topical cream 1 applic topical QID PRN pain #30 07/01/24 grams ondansetron 4 mg disintegrating 4 mg PO Q6H PRN nausea and 07/01/24 tablet vomiting #12 tabs polyethylene glycol 3350 17 17 g PO DAILY #238 grams 07/01/24 gram/dose oral powder (Miralax) prednisone 10 mg tablet See Rx Instructions .Route 07/13/24 .COMPLEX #30 tabs ondansetron 4 mg disintegrating 4 mg PO Q6H PRN nausea and 11/21/24 tablet vomiting #20 tabs oxycodone-acetaminophen 5 mg-325 1 tab PO Q6H PRN pain 5 days #20 11/21/24 mg tablet (Percocet) tabs tamsulosin 0.4 mg capsule (Flomax) 0.4 mg PO DAILY #7 caps 11/21/24 Allergies Allergy/AdvReac Type Severity Reaction Status Date / Time No Known Drug Allergies Allergy Verified 12/03/24 00:34 Opioid HPI Opioid Management Most Recent Opioid Data: Last Pain Scale 8 12/03/24 02:10 12/03/24 Last NOV Pain Assessment 12/03/24 02:10 Review of Systems ROS Status of ROS 10 or more systems reviewed and unremark able except as noted in history and below PFSH PFSH Social History Little interest or pleasure in doing things: not at all Feeling down, depressed, or hopeless: not at all Exam Narrative Exam Narrative: Vital signs and Nursing Notes reviewed: Patient is afebrile, mildly tachycardic with a pulse of 108, blood pressure is normal, she is not hypoxic with pulse ox of 100% on room air General: Awake, alert, oriented, no acute distress, lying comfortably on the stretcher HEENT: Normocephalic atraumatic, mucous membranes are slightly dry Neck: Supple, no meningeal signs, no anterior or posterior cervical lymphadenopathy Chest: Lungs are clear to auscultation with good air entry, there is no wheezing rhonchi or rales appreciated no accessory muscle use, patient is speaking in complete sentences-no chest wall tenderness to palpation CVS: Regular rate and rhythm S1-S2, at 96 on exam no murmurs rubs or gallops, pulses are brisk and equal bilaterally ABD: Soft, nondistended, nontender, no rebound guarding or rigidity, bowel sounds are normal, no pulsatile masses appreciated, no flank tenderness Extremities: Moving all extremities, no lower extremity tenderness or swelling noted, negative Homans' sign, pulses are brisk and equal bilaterally Skin: Normal in appearance without rash,pallor, petechiae or purpura Neuro: No focal deficits Constitutional Vital Signs, click to edit/add: Last Vital Signs Temp 99.4 F 12/03/24 00:34 Pulse 102 H 12/03/24 01:50 Resp 16 12/03/24 01:50 BP 131/90 12/03/24 01:50 Pulse Ox 100 12/03/24 01:50 O2 Del Method Room Air 12/03/24 01:50 Course Vital Signs Vital signs: Vital Signs Temperature 99.4 F 12/03/24 00:34 Pulse Rate 108 H 12/03/24 00:34 Respiratory Rate 16 04/01/25 00:34 Blood Pressure 112/79 12/03/24 00:34 Pulse Oximetry 100 12/03/24 00:34 Oxygen Delivery Method Room Air 12/03/24 00:34 Temperature 99.4 F 12/03/24 00:34 Pulse Rate 102 H 12/03/24 01:50 Respiratory Rate 16 12/03/24 01:50 Blood Pressure 131/90 12/03/24 01:50 Pulse Oximetry 100 12/03/24 01:50 Oxygen Delivery Method Room Air 12/03/24 01:50 Medical Decision Making MDM Narrative Medical decision making narrative: This 24-year-old female with a history of kidney stones who had a ureteral stent placed last Monday for a 7 mm right sided kidney stone presents for evaluation of worsening pain with nausea. The patient states that the day before she had her stent placed her mother . She has been having pain since that time both emotional and physical. She has not had a fever or chills. Her urine is dark and bloody. She admits that she has been constipated as well. She states that because of the arrangements and other things she has had to take care of in light of her mother's she has not had a chance to take any laxatives. She was not discharged home with any pain medication besides Toradol and Flomax. She had called the urologist office stating that she was having a lot of pain but was told to take the Toradol and Flomax over the weekend and call Monday if she was having ongoing pain. She states she called the office but they did not respond to her. In emergency department she is nontoxic but uncomfortable appearing. Her abdomen is soft. She does not have any reproducible flank pain. An IV was placed and she was medicated with IV fluids, Zofran, Toradol and morphine. On reevaluation she is feeling much better. Routine labs are reviewed. Her white count is elevated today at 17. She has normal lactic acid. Electrolytes are normal. Urine is positive for blood and 2-5 white blood cells per high-power field. In light of her elevated white count and recent instrumentation she was given a gram of IV Rocephin. Urine culture is pending. Due to her recent instrumentation and elevated white count I also ordered a CT scan. The CT scan shows right nephrolithiasis with a right nephroureteral stent with no definite stone identified along the course of the stent, there was no notation of any perinephric stranding concerning for pyelonephritis. It also showed a large amount of formed colonic stool suggesting constipation. The patient was given a dose of Colace prior to discharge and will be discharged home with a prescription for [place], Zofran, Colace and Keflex. She will follow-up with her urologist as scheduled. She was encouraged to drink plenty of fluids and take Metamucil or MiraLAX in addition to the Colace for her constipation. She is in agreement with this plan. Lab Data Labs: Lab Results 12/03/24 12/03/24 Range/Units 01:50 01:55 WBC 17.5 H (4.0-11.0) 10^3/uL RBC 4.48 (4.20-5.40) 10^6/uL Hgb 12.6 (12.0-16.0) g/dL Hct 38.8 (36.0-48.0) % MCV 86.6 (81.0-99.0) fL MCH 28.1 (26.7-34.0) pg MCHC 32.5 (29.9-35.2) g/dL RDW 12.8 (11.0-15.0) % Plt Count 332 (150-450) 10^3/uL MPV 10.3 (9.5-13.5) fL Neut % (Auto) 80.6 H (43.0-75.0) % Lymph % (Auto) 10.7 L (20.5-60.0) % [place] % (Auto) 7.2 (1.7-12.0) % Eos % (Auto) 0.7 L (0.9-7.0) % Baso % (Auto) 0.3 (0.2-2.0) % Neut # (Auto) 14.1 H (1.4-6.5) 10^3/uL Lymph # (Auto) 1.9 (1.2-3.8) 10^3/uL [place] # (Auto) 1.3 H (0.3-0.8) 10^3/uL Eos # (Auto) 0.1 (0.0-0.7) 10^3/uL Baso # (Auto) 0.1 (0.0-0.1) 10^3/uL Abs Immat Gran (auto) 0.08 H (0.00-0.03) 10^3/uL Imm/Tot Granulo (auto) 0.5 (0.0-0.5) % Sodium 139 (136-145) mmol/L Potassium 3.5 (3.5-5.1) mmol/L Chloride 103 (98-107) mmol/L Carbon Dioxide 25.4 (21.0-32.0) mmol/L Anion Gap 14.1 BUN 15.0 (7.0-18.0) mg/dL Creatinine 0.99 (0.55-1.02) mg/dL Est GFR ( Amer) >60 (>=60 mL/min/1.73m^2) Est GFR (Non-Af Amer) >60 (>=60 mL/min/1.73m^2) BUN/Creatinine Ratio 15.2 Glucose 106 (74-106) mg/dL Lactate 0.9 (0.4-2.0) mmol/L Calcium 9.3 (8.5-10.1) mg/dL Total Bilirubin 0.8 (0.2-1.0) mg/dL AST 14 L (15-37) U/L ALT 18 (14-59) U/L Alkaline Phosphatase 87 (46-116) U/L Total Protein 7.8 (6.4-8.2) g/dL Albumin 3.9 (3.4-5.0) g/dL Globulin 3.9 g/dL Albumin/Globulin Ratio 1.0 Urine Color Brown A (YELLOW) Urine Clarity Clear (CLEAR) Urine pH 6.5 (5.0-9.0) Ur Specific [place] 1.025 (1.005-1.025) Urine Protein >=300 A (NEG/TRACE) mg/dL Urine Glucose (UA) Negative (NEGATIVE) mg/dL Urine Ketones Trace A (NEGATIVE) mg/dL Urine Occult Blood Large A (NEGATIVE) Urine Nitrite Negative (NEGATIVE) Urine Bilirubin Small A (NEGATIVE) Urine Urobilinogen 1.0 (0.2-1.0) EU/dL Ur Leukocyte Esterase Small A (NEGATIVE) Urine RBC >100 A (0-2) #/HPF Urine WBC 2-5 A (NONE SEEN) #/HPF Ur Squamous Epith Cells Rare (NONE/RARE) #/LPF Urine Crystals Seen A (None Seen) #/HPF Amorphous Sediment Few Urine Bacteria Small A (NONE SEEN) #/HPF Urine Casts None seen (NONE SEEN) #/LPF Urine Mucus None seen (NONE SEEN) Ur Culture Indicated? Yes[place] [place] Discharge Chief Complaint: Abdominal Pain Clinical Impression: Post-op pain, Constipation Patient Disposition: Home, Self-Care Time of Disposition Decision: 04:55 Condition: Good Prescriptions / Home Meds: No Action hydrocodone-acetaminophen 5-325 mg tablet 1 tab PO Q6H PRN (Reason: pain) 3 Days Qty: 12 0RF Rx Instructions: DX: R10.9 ketorolac 10 mg tablet 10 mg PO TID PRN (Reason: pain) Qty: 10 0RF ondansetron 4 mg tablet,disintegrating 4 mg PO Q6H PRN (Reason: nausea and vomiting) Qty: 12 0RF polyethylene glycol 3350 [Miralax] 17 gram/dose powder 17 g PO DAILY Qty: 238 0RF lidocaine 5 % cream 1 applic topical QID PRN (Reason: pain) Qty: 30 0RF prednisone 10 mg tablet See Rx Instructions .ROUTE .COMPLEX Qty: 30 0RF Rx Instructions: 4 by mouth daily for three days then 3 by mouth daily for three days then 2 by mouth daily for three days then 1 by mouth daily for three days oxycodone-acetaminophen [Percocet] 5-325 mg tablet 1 tab PO Q6H PRN (Reason: pain) 5 Days Qty: 20 0RF tamsulosin [Flomax] 0.4 mg capsule 0.4 mg PO DAILY Qty: 7 0RF ondansetron 4 mg tablet,disintegrating 4 mg PO Q6H PRN (Reason: nausea and vomiting) Qty: 20 0RF Print Language: Kazakh Instructions: Constipation (ED), Kidney Stones (ED), Narcotic Safety (ED) Referrals: AUSTYN URBAN [Primary Care Provider] - 1 week
[2024-12-03 01:50] VITALS: BP 131/90; PULSE 102; O2SAT 100
[2024-12-03 02:00] VITALS: BP 119/80; PULSE 100; O2SAT 100
[2024-12-03 02:10] LABS: Basophils Absolute Auto 0.1 10^3/uL (0.0-0.1); Basophils Percent Auto 0.3 % (0.2-2.0); Eosinophils Absolute Auto 0.1 10^3/uL (0.0-0.7); Eosinophils Percent Auto 0.7 % (0.9-7.0); Hematocrit 38.8 % (36.0-48.0); Hemoglobin 12.6 g/dL (12.0-16.0); Immature Granulocytes Abs Auto 0.08 10^3/uL (0.00-0.03); Immature Granulocytes Pct Auto 0.5 % (0.0-0.5); Lymphocytes Absolute Auto 1.9 10^3/uL (1.2-3.8); Lymphocytes Percent Auto 10.7 % (20.5-60.0); Mean Corpuscular HGB Conc 32.5 g/dL (29.9-35.2); Mean Corpuscular Hemoglobin 28.1 pg (26.7-34.0); Mean Corpuscular Volume 86.6 fL (81.0-99.0); Mean Platelet Volume 10.3 fL (9.5-13.5); Monocytes Absolute Auto 1.3 10^3/uL (0.3-0.8); Monocytes Percent Auto 7.2 % (1.7-12.0); Neutrophils Absolute Auto 14.1 10^3/uL (1.4-6.5); Neutrophils Percent Auto 80.6 % (43.0-75.0); Platelet Count 332 10^3/uL (150-450); Red Blood Count 4.48 10^6/uL (4.20-5.40); Red Cell Distribution Width 12.8 % (11.0-15.0); White Blood Count 17.5 10^3/uL (4.0-11.0)
[2024-12-03] MEDS: KETOROLAC TROMETHAMINE 30 MG/ML VIAL IVP (02:10)
[2024-12-03] MEDS: MORPHINE SULFATE 4 MG/ML VIAL IV (02:10)
[2024-12-03] MEDS: 0.9 % SODIUM CHLORIDE 1,000 ML 1000 ML IV (02:11)
[2024-12-03] MEDS: ONDANSETRON PF 4 MG/2 ML VIAL IV (02:11)
[2024-12-03 02:13] LABS: Bilirubin Urine SMALL (NEGATIVE); Blood Urine LARGE (NEGATIVE); Clarity Urine CLEAR (CLEAR); Color Urine BROWN (YELLOW); Glucose Urine UA NEGATIVE (NEGATIVE); Ketones Urine TRACE mg/dL (NEGATIVE); Leukocyte Esterase Urine SMALL (NEGATIVE); Nitrite Urine NEGATIVE (NEGATIVE); Protein Urine >=300 mg/dL (NEG/TRACE); Specific Gravity Urine 1.025 (1.005-1.025); pH Urine 6.5 (5.0-9.0)
[2024-12-03 02:20] LABS: Amorphous Sediment Urine FEW; Bacteria Urine SMALL #/HPF (NONE SEEN); Cast Seen? NONE SEEN #/LPF (NONE SEEN); Crystals Seen? Seen #/HPF (None Seen); Mucus Urine NONE SEEN (NONE SEEN); RBC Urine >100 #/HPF (0-2); Squamous Epithelial Cell Urine RARE #/LPF (NONE/RARE); Urine Culture Indicated YES-FRMC
[2024-12-03 02:26] LABS: Alanine Aminotransferase 18 U/L (14-59); Albumin Level 3.9 g/dL (3.4-5.0); Alkaline Phosphatase 87 U/L (46-116); Anion Gap 14.1; Aspartate Amino Transferase 14 U/L (15-37); BUN Creatinine Ratio 15.2; Bilirubin Total 0.8 mg/dL (0.2-1.0); Calcium 9.3 mg/dL (8.5-10.1); Carbon Dioxide 25.4 mmol/L (21.0-32.0); Chloride 103 mmol/L (98-107); Estimated GFR (African America >60 (>=60 mL/min/1.73m^2); Estimated GFR (Non-African Ame >60 (>=60 mL/min/1.73m^2); Globulin 3.9 g/dL; Glucose 106 mg/dL (74-106); Potassium 3.5 mmol/L (3.5-5.1); Sodium 139 mmol/L (136-145); Total Protein 7.8 g/dL (6.4-8.2)
[2024-12-03 02:29] LABS: Lactate/Lactic Acid 0.9 mmol/L (0.4-2.0)
[2024-12-03] MEDS: CEFTRIAXONE 1,000 MG in 0.9 % SODIUM CHLORIDE 50 ML 100 MG IV (03:21)
[2024-12-03] MEDS: DOCUSATE SODIUM 100 MG CAPSULE PO (05:05)
[2024-12-03] MEDS: HYDROCODONE/ACET 5-325 MG TABLET 2 TAB PO (05:05)
== END 2024-12-03 05:19 | disposition home or self-care (01) ==
PROVIDERS: Emergency Provider Emergency Medicine; Family Provider Family Medicine; PCP Family Medicine
DX: K59.00 Constipation, unspecified (principal); G89.18 Other acute postprocedural pain; Z87.442 Personal history of urinary calculi; Z98.890 Other specified postprocedural states; Z96.0 Presence of urogenital implants; Z63.4 Disappearance and death of family member
CPT/HCPCS: 36415; 74176; 80053; 81001; 83605; 85025; 87086; 87150; 96365; 96375; 99284; J0696; J1885; J2270; J2405

== ENCOUNTER 2024-12-12 00:48 | Emergency (ER) | payer OTHER, SELFPAY ==
[2024-12-12 00:52] VITALS: BP 130/60; PULSE 80; TEMP 36.7; O2SAT 99; BMI 25.6
--- OUTSIDE RECORDS SUMMARY | 2024-12-12 00:54 | XMS_ITS | CCD ---
Author Organization [facility] Care Team Providers Care 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 Name Role Phone Jenn Urban Primary Care [...] Unavailable Jenn Urban MD Primary Care Provider [phone] Luís Greenfield Attending Unavailable Luís Greenfield Attending [...] Unavailable Rey Barrera Attending Unavailable Marybel Will MD Attending Provider [phone] Jenn Urban MD Primary Care Provider Zaira Coates DO Attending Provider Marybel Will Attending Unavailable Marybel Will Attending Unavailable Marybel Will Referring Unavailable Marybel Will Admitting Unavailable Marybel Will Attending Unavailable Jenn Urban Primary Care Unavailable Zaira Coates Admitting Unavailable Zaira Coates Attending Unavailable Allergies Allergy Classification Reported Allergen(s) Allergy Type Date of Onset Reaction(s) Facility (14 sources) Loperamide; Translations: [loperamide] Drug Allergy 08-11-2023 [facility] Medications Current Medications Medication Drug Class(es) Dates Sig (Normalized) Sig (Original) acetaminophen 325 mg / HYDROcodone bitartrate 5 mg oral tablet (1 source) Opioid Agonist Start: 04-12-2023 End: 04-15-2023 [place] 325 mg-5 mg oral tablet 1 tab(s), Oral, q6hr for pain for 3 day(s), 10 tab(s), Refill(s) 0, [facility]/pharmacy #[id number], 157.4, cm, 04/12/23 2:00:00 EDT, [...] # 10 tab(s), Refills(s) 0, Pharmacy: [facility]/pharmacy #[id number], 158, cm, 05/27/24 13:27:00 EDT, Height/Length Dosing, 64.8, kg, 05/27/24 13:27:00 EDT, Weight Dosing Start Date: 05/27/24 Stop Date: 06/01/24 Status: Ordered brompheniramine maleate 0.4 mg/ml / dextromethorphan hydrobromide 2 mg/ml / pseudoephedrine hydrochloride 6 mg/ml oral solution (1 source) alpha-Adrenergic Agonist, Uncompetitive L-arpqrt-H-asparta te Receptor Antagonist, Sigma-1 Agonist Start: 06-28-2022 End: 07-05-2022 take 10 mL by mouth four times daily for cough and congestion Bromfed DM oral syrup 10 mL, Oral, QID for cough and congestion for 7 day(s), 280 mL, Refill(s) 0, [facility]/pharmacy #[id number], 157, cm, 06/28/22 17:24:00 EDT, [...] # 14 cap(s), Refills(s) 0, Pharmacy: [facility]/pharmacy #[id number], 158, cm, 10/28/24 6:50:00 EST, [...] day(s), # 20 tab(s), Refills(s) 0, Pharmacy: [facility]/pharmacy #[id number], 158, cm, 10/10/24 13:53:00 EST, [...] before using wash hands before applying, [facility]/pharmacy #[id number], 158, cm, 05/27/24 13:27:00 EDT, Height/Length Dosing, 64.8, kg, 05/27/24 13:27:00 EDT, Weight Dosing Start Date: 05/27/24 Stop Date: 06/03/24 Status: Ordered clindamycin 300 mg oral capsule (5 sources) Lincosamide Antibacterial Start: 09-16-2020 take 1 capsule by mouth every eight hours clindamycin 300 mg oral cap 300 mg = 1 cap(s), Oral, q8hr, # 24 cap(s), Refills(s) 0, Pharmacy: [facility]/pharmacy #[id number], 157, cm, 09/16/20 21:21:00 EST, Height/Length Dosing, 52, kg, 09/16/20 21:21:00 EST, Weight Dosing Start Date: 09/16/20 Status: Ordered cloNIDine hydrochloride 0.3 mg oral tablet (20 sources) Central alpha-2 Adrenergic Agonist Start: 11-26-2024 take 1 tablet by mouth at bedtime Clonidine Hcl 0.3 mg tablet Active 0.3 MG PO Bedtime November 26, 2024 12:00am Start: 05-23-2023 take 2 tablets by mo ut once daily at bedtime, then take 2 tablets by mouth once daily at bedtime cloNIDine HCl (CATAPRES) 0.3 mg tablet Take 0.6 mg by mouth daily at bedtime. Take 0.6 mg by mouth daily at bedtime. 05/23/2023 Active Start: 05-18-2017 take 2 tablets by mo ut once daily at bedtime cloNIDine 0.2 mg [...] # 12 cap(s), Refills(s) 0, Pharmacy: [facility]/pharmacy #[id number], 157, cm, 03/19/23 6:49:00 EDT, Height/Length Dosing, 56, kg, 03/19/23 6:49:00 EDT, Weight Dosing Start Date: 03/19/23 Status: Ordered Start: 11-11-2022 End: 11-18-2022 take 1 capsule by mouth four times daily Bentyl 10 mg Cap 10 mg = 1 cap(s), Oral, QID, X 7 day(s), # 28 cap(s), Refills(s) 0, Pharmacy: [facility]/pharmacy #[id number], 158, cm, 11/11/22 15:01:00 EST, [...] constipation, # 100 cap(s), Refills(s) 0, Pharmacy: [facility]/pharmacy #[id number], 158, cm, 10/10/24 13:53:00 EST, [...] # 30 tab(s), Refills(s) 0, Pharmacy: [facility]/pharmacy #[id number], 157, cm, 03/19/23 6:49:00 EDT, [...] day(s), # 20 tab(s), Refills(s) 0, Pharmacy: [facility]/pharmacy #[id number], 158, cm, 10/28/24 6:50:00 EST, [...] # 14 cap(s), Refills(s) 0, Pharmacy: [facility]/pharmacy #[id number], 158, cm, 06/28/24 14:54:00 EDT, Height/Length Dosing, 65.1, kg, 06/28/24 14:54:00 EDT, Weight Dosing Start Date: 06/28/24 Stop Date: 07/05/24 Status: Ordered Start: 06-11-2024 End: 06-18-2024 take 1 capsule by mouth twice daily Macrobid 100 mg Cap 100 mg = 1 cap(s), Oral, BID, X 7 day(s), # 14 cap(s), Refills(s) 0, [id number] 157.[facility], cm, 06/11/24 10:45:00 EDT, Height/Length [...] Nausea/Vomiting, # 15 tab(s), Refills(s) 0, [id number] 158, cm, 10/28/24 6:50:00 EST, Height/Length Dosing, 64, kg, 10/28/24 6:50:00 EST, Weight Dosing Start Date: 10/28/24 Status: Ordered oxybutynin chloride 5 mg oral tablet (2 sources) Cholinergic Muscarinic Antagonist Start: 11-26-2024 Oxybutynin Chloride 5 mg tablet Active 5 MG PO 2-3 TIMES PER DAY as needed for bladder spasms 60 November 26, 2024 12:00am pantoprazole 20 mg delayed release oral tablet (1 source) Proton Pump Inhibitor Start: 07-29-2024 End: 08-12-2024 take 1 tablet by mouth once daily Pantoprazole [address] Tab 20 mg = 1 tab(s), Oral, Daily, X 14 day(s), # 14 tab(s), Refills(s) 0, Pharmacy: [facility]/pharmacy #[id number], 158, cm, 07/29/24 6:03:00 EST, Height/Length Dosing, 64.6, kg, 07/29/24 6:03:00 EST, Weight Dosing Start Date: 07/29/24 Stop Date: 08/12/24 Status: Ordered penicillin v potassium 500 mg oral tablet (5 sources) Start: 09-29-2021 take 1 tablet by mouth every six hours penicillin V potassium 500 mg Tab 500 mg = 1 tab(s), Oral, q6hr, # 40 tab(s), Refills(s) 0, [id number] 157.5, cm, 09/29/21 1:19:00 EST, Height/Length Dosing, 56.1, kg, 09/29/21 1:19:00 EST, Weight Dosing Start Date: 09/29/21 Status: Ordered phenazopyridine hydrochloride 100 mg oral tablet (3 sources) Start: 10-28-2024 End: 10-31-2024 take 1 tablet by mouth three times daily Pyridium 100 mg Tab 100 mg = 1 tab(s), Oral, TID, X 3 day(s), # 9 tab(s), Refills(s) 0, Pharmacy: [facility]/pharmacy #[id number], 158, cm, 10/28/24 6:50:00 EST, Height/Length Dosing, 64, kg, 10/28/24 6:50:00 EST, Weight Dosing Start Date: 10/28/24 Stop Date: 10/31/24 Status: Ordered Start: 10-10-2024 End: 10-16-2024 take 1 tablet by mouth three times daily as needed for pain Pyridium 200 mg Tab 200 mg = 1 tab(s), Oral, TID, PRN urinary pain, X 3 day(s), # 9 tab(s), Refills(s) 1, Pharmacy: [facility]/pharmacy #[id number], 158, cm, 10/10/24 13:53:00 EST, Height/Length Dosing, 63.1, kg, 10/10/24 13:53:00 EST, Weight Dosing Start Date: 10/10/24 Stop Date: 10/16/24 Status: Ordered polyethylene glycol 3350 80159 mg powder for oral solution (13 sources) Osmotic Laxative Start: 06-11-2024 take 17 g by mouth once daily Miralax 3350 17 gram packet 17 gm, Oral, Daily, # 255 gm, Refills(s) 1, Pharmacy: [facility]/pharmacy #[id number], 158, cm, 10/10/24 13:53:00 EST, Height/Length Dosing, 63.1, kg, 10/10/24 13:53:00 EST, Weight Dosing Start Date: 10/10/24 Status: Ordered Start: 11-11-2022 polyethylene g lycol 3350 Oral Pwdr for Recon 17 gram, Oral, Daily, dissolve in water before taking, # 527 gram, Refills(s) 0, Pharmacy: [facility]/pharmacy #[id number], 158, cm, 11/11/22 15:01:00 EST, Height/Length Dosing, 57, kg, 11/11/22 15:01:00 EST, Weight Dosing Start Date: 11/11/22 Status: Ordered polyethylene glycol 3350 111343 mg / potassium chloride 2970 mg / sodium bicarbonate 6740 mg / sodium chloride 5860 mg / sodium sulfate 05400 mg powder for oral solution (5 sources) [...] day(s), # 40 tab(s), Refills(s) 0, Pharmacy: [facility]/pharmacy #[id number], 158, cm, 07/29/24 6:03:00 EST, Height/Length Dosing, 64.6, kg, 07/29/24 6:03:00 EST, Weight Dosing Start Date: 07/29/24 Stop Date: 08/08/24 Status: Ordered sulfamethoxazole 800 mg / trimethoprim 160 mg oral tablet (2 sources) Dihydrofolate Reductase Inhibitor Antibacterial, Sulfonamide Antimicrobial Start: take 1 tablet by mouth every twelve hours Sulfamethoxazole-Tr imethoprim (Bactrim Ds) 800-160 mg tablet Active 1 TAB PO Every 12 hours November 26, 2024 12:00am tamsulosin hydrochloride 0.4 mg oral capsule (4 sources) alpha-Adrenergic Keely Start: take 1 capsule by mouth once daily as needed for pain Tamsulosin 0.4 mg capsule Active 0.4 MG PO Daily as needed for stent pain November 26, 2024 4:06pm Start: 10-28-2024 take 1 capsule by [facility] once daily Flomax 0.4 mg Cap 0.4 mg = 1 cap(s), Oral, Daily, # 10 cap(s), Refills(s) 0, Pharmacy: [facility]/pharmacy #[id number], 158, cm, 10/28/24 6:50:00 EST, Height/Length Dosing, 64, kg, 10/28/24 6:50:00 EST, Weight Dosing Start Date: 10/28/24 Status: Ordered Start: 04-12-2023 take 1 capsule by [facility] once daily Flomax 0.4 mg Cap 0.4 mg = 1 cap(s), Oral, Daily, # 10 cap(s), Refills(s) 0, Pharmacy: [facility]/pharmacy #[id number], 157.4, cm, 04/12/23 2:00:00 EDT, Height/Length Dosing, 56, kg, 04/12/23 2:00:00 EDT, Weight Dosing Start Date: 04/12/23 Status: Ordered Zofran ODT 4 mg Tab-Dis (9 sources) Start: 07-29-2024 take 1 tablet by mouth every eight hours as needed for nausea Zofran ODT 4 mg Tab-Dis 4 mg = 1 tab(s), Oral, q8hr, PRN Nausea/Vomiting, # 16 tab(s), Refills(s) 0, [id number], cm, 07/29/24 6:03:00 EST, Height/Length Dosing, 64.6, kg, 07/29/24 6:03:00 EST, Weight Dosing Start Date: 07/29/24 Status: Ordered Start: 04-12-2023 take 1 tablet by tiffany th every eight hours Zofran ODT 4 mg Tab-Dis 4 mg = 1 tab(s), Oral, q8hr, # 12 tab(s), Refills(s) 0, [id number] 157.4, cm, 04/12/23 2:00:00 EDT, Height/Length Dosing, 56, kg, 04/12/23 2:00:00 EDT, Weight Dosing Start Date: 04/12/23 Status: Ordered Start: 03-19-2023 take 1 tablet by tiffany th every eight hours as needed for nausea Zofran ODT 4 mg Tab-Dis 4 mg = 1 tab(s), Oral, q8hr, PRN Nausea/Vomiting, # 12 tab(s), Refills(s) 0, [id number] 157, cm, 03/19/23 6:49:00 EDT, Height/Length Dosing, 56, kg, 03/19/23 6:49:00 EDT, Weight Dosing Start Date: 03/19/23 Status: Ordered Start: 01-24-2023 take 1 tablet by tiffany th every eight hours as needed for nausea Zofran ODT 4 mg Tab-Dis 4 mg = 1 tab(s), Oral, q8hr, PRN Nausea/Vomiting, # 20 tab(s), Refills(s) 0, Pharmacy: [facility]/pharmacy #[id number], 158, cm, 01/23/23 22:00:00 EDT, [...] tiffany th once daily Drospirenone-Ethinyl Estradiol (YOLIS, 28,) 3-0.02 mg per tablet Indications: Encounter for [...] [Other alf (current) drug therapy] Episodic Other diseases of kidney and ureters (1 source) Hydronephrosis with renal and ureteral calculous obstruction; Translations: [Hydronephrosis with renal and ureteral calculous obstruction] Onset: 11-26-2024 Episodic Other ear and sense organ disorders [...] Name Value Interpretation Reference Range Facil ity Urine Cultureon 12-03-2024 Bacteria identified Cx Nom (U) ORGANISM: Strep agalactiae - (group b) (O:STRAGA) [place] Count 75,000 PERFORMED BY: [place] [address] PATHOLOGIST GUEST LAUNDRY ATTENDANT SENDY CHIU M.D. Normal [facility] Comment on above: Performed By: #### C UU #### [place] [address] [place] Calculi, Urinaryon 5 Ca Oxalate Dihydrate 70 % Normal . [facility] Comment on above: Performed By: #### C ALCULI #### [facility] , Color (U) Santos Normal . [facility] Comment on above: Performed By: #### C ALCULI #### [facility] , Comment: Comment Normal . [facility] Comment on above: Result Comment: Phys leonardo questions regarding Calculi Analysis contact [facility] at: [phone]. Performed By: #### C ALCULI #### [facility] , Composition Comment Normal . [facility] Comment on above: Result Comment: Perc entage (Represents the % composition) Performed By: #### C ALCULI #### [facility] , Disclaimer: Comment Normal . [facility] Comment on above: Result Comment: This test was developed and its performance characteristics determined by [facility]. It has not been cleared or approved by the Food and Drug Administration. Performed at: [address] [id number] Privacy Manager: Don Martinez PhD, Phone: [phone] Performed By: #### C ALCULI #### [facility] , Hydroxyapatite 30 % Normal . [facility] Comment on above: Performed By: #### C ALCULI #### [facility] , Note Comment Normal . [facility] Comment on above: Result Comment: Calc theodore report will follow via computer, mail or liner man delivery. PERFORMED BY: [place] [address] PATHOLOGIST GUEST LAUNDRY ATTENDANT SENDY CHIU M.D. Performed By: #### C ALCULI #### [facility] , Photo Comment Normal . [facility] Comment on above: Result Comment: Phot ograph will follow under a separate cover Performed By: #### C ALCULI #### [facility] , Size 4x3 Normal . [facility] Comment on above: Result Comment: Mult iple pieces received. Dimensions of the largest piece reported. Performed By: #### C ALCULI #### [facility] , Source Comment Normal . [facility] Comment on above: Result Comment: Righ t Ureter Performed By: #### C ALCULI #### [facility] , Weight 15 Normal . [facility] Comment on above: Performed By: #### C ALCULI #### [facility] , [place] urethrocystogram retroon 11-26-2024 [place] urethrocystogram retro [facility] [place] [address] Fluoroscopy Report Signed Patient: Sherie Rizvi MR#: [id number] 0 : 2000 Acct:[id number] Age/Sex: 24 / F ADM Date: 11/26/24 Loc: [place] Room: Type: [facility] Attending Dr: Marybel Will MD Copies to: [...] Intraoperative study. Impression dictated by: Benson Stevenson Jr. DStormyOStormy11/26/2024 6:23 PM Dictation Location: RADIO-PC-18 Transcribed By: PWS 11/26/241822 Dictated By: Benson Stevenson Jr, 11/26/241821 Signed By: 11/26/241822 Normal [facility] HCG ( test) [place] Ql (U)Ordered By: Billy Hernandez on 11-26-2024 HCG ( test) Ql (U) Urine human chorionic gonadotropin (hCG) detection by immunoassay [facility] HCG,Urineon 11-26-2024 Beta HCG ( test) Ql (U) Negative Normal [facility] Comment on above: Result Comment: PERF ORMED BY: [place] [address] PATHOLOGIST GUEST LAUNDRY ATTENDANT SENDY CHIU M.D. Performed By: #### U HCG #### [address] 11-26-2024 L -- ---- Specimen: [id number] Received: 11/27/24 Status: HARRIET Nuno Num: [id number] Spec Type: Surgical Subm Dr: Marybel Will MD Tissues: A Gross Only (URETERAL STONE) Procedures: Level 1 Gross ---- Age/ Patient Sex Location Account Attending Physician ---- Sherie Rizvi [place] [id number] Marybel Will MD ---- SPEC NUM: [id number] RECD: 11/27/24 STATUS: HARRIET NUNO NUM: [id number] CATALINA: 11/26/24-[address]: Marybel Will MD ENTERED: 11/27/[address]: NIKITA TYPE: Surgical DEPT: S ENTERED BY: [id number] RECV BY: [id number] ORDERED: Level 1 Gross ORDERED: Level 1 Gross Pathological Diagnosis Right ureteral stone, evacuation and retrieving -3 ramirez santos calculi for gross only examination, pending further chemical analysis to follow Clinical Information R ureteral stone with hydronephrosis Gross Description Part A is received fresh labeled with the patients name, date of , and R ureteral stone are 3 santos-ramirez, granular, 0.2, 0.3 and 0.4 cm in greatest dimension calculi. The specimen is sent to [facility] for chemical analysis. GROSS ONLY- Microscopic Description Not provided CPT Codes 39927 ---- ---- Specimen: [id number] Received: 11/27/24 Status: HARRIET Nuno Num: [id number] Spec Type: Surgical Subm Dr: Marybel Will MD Tissues: A Gross Only (URETERAL STONE) Procedures: Level 1 Gross ---- Patient: Sherie Rizvi [id number] (Continued) ---- Signed (signature on file) Ziggy Mays MD 11/28/24 1500 Normal [facility] Ambulatory Visit Summaryon 0 11-25-2024 Ambulatory Visit Summary Ambulatory Visit Summary SHERIE RIZVI :2000 Visit Date:11/25/2024 Ambulatory Visit Instructions Your Diagnosis Ureteral stone with hydronephrosis Kidney stone History of UTI Your Care Team Attending Physician - Suman PIERCE, Marybel Fitzgerald Primary Care Physician - Wilmar PIERCE, Jenn Mcnamara This Is Your Medications List Contact prescribing [...] Follow Up with Suman PIERCE, Marybel Fitzgerald, URMelquiades, URO When: Where: Medications What How Much [...] ? 8 oz (237 mL) of milk, iglgbgv-rwxjcqqwpesm-f airy milk, and calcium-fortifiedfruit juice. Calcium-fortified means [...] own sa (more content not included)... Normal [facility] Urology Office/Clinic Noteon 11-25-2024 Urology Office/Clinic [...] Assessment/Plan 24 yo female presents for recent [facility] ER visit x 2 for right ureteral stone. Denies diabetes, CVA, [place]. Not on anticoagulation. BBSQ 12 1. Ureteral stone with hydronephrosis (N13.2: Hydronephrosis with renal and ureteral calculous obstruction) KUB 06/27/24 [facility] - neg for obvious stones however large stool burden. Pt presented to [facility] ER 10/28/24 due to dysuria, urinary frequency, nausea and back pain. CT AP w con 10/28/24 [facility] - Moderate right hydronephrosis secondary to an approximately 5 to 6 mm calculus (average Hounsfield units approximately 1000) within the proximal third of the right ureter approximately 17 cm superior to the right UVJ. Labs - Cr 0.8, eGFR 107 Neg UCx Pt later presented to [facility] ER 11/20/24. Labs - Cr 1.18, elevated [...] of kidney) CT AP w con 10/28/24 [facility] - 2 to [address] AP wo con 11/20/24 [facility] - bilateral stones. -See #1 Increase fluids, [...] to stone Follow-up With When Contact Information Suman PIERCE, Marybel Fitzgerald, URL, URO Additional Instr (more content not included)... [facility] Comment on above: Result Comment: Elec tronically [...] Locations R1: This test was performed at: [facility], [address] [place] [address], [id number]- , [place], [facility] Comment on above: Performed By: #### 2 [id number] #### [facility] [address] [place] [address] [place] [address] ED Note-Physicianon 10-29-19 ED Note-Physician ED Note-Physician [...] # 14 cap(s), Refills(s) 0, Pharmacy: [facility]/pharmacy #[id number], 158, cm, 10/28/24 6:50:00 EST, Height/Length Dosing, 64, kg, 10/28/24 6:50:00 EST, Weight Dosing ketorolac, 30 mg = 1 mL, Injection, IV Push, Once, Stop date 10/28/24 7:12:00 EST, STAT, Start date 10/28/24 7:12:00 EST, 10/28/24 7:12:00 EST naproxen, 500 mg = 1 tab(s), Oral, BID, X 10 day(s), # 20 tab(s), Refills(s) 0, [id number] 158, cm, 10/28/24 6:50:00 EST, Height/Length Dosing, 64, kg, 10/28/24 6:50:00 EST, Weight Dosing ondansetron, 4 mg = 1 tab(s), Oral, q6hr, PRN Nausea/Vomiting, # 15 tab(s), Refills(s) 0, Pharmacy: [facility]/pharmacy #[id number], 158, cm, 10/28/24 6:50:00 EST, Height/Length Dosing, 64, kg, 10/28/24 6:50:00 EST, Weight Dosing ondansetron, 4 mg = 2 mL, Injection, IV Push, Once, Stop date 10/28/24 7:12:00 EST, STAT, Start date 10/28/24 7:12:00 EST, 10/28/24 7:12:00 EST phenazopyridine, 100 mg = 1 tab(s), Oral, TID, X 3 day(s), # 9 tab(s), Refills(s) 0, Pharmacy: [facility]/pharmacy #[id number], 158, cm, 10/28/24 6:50:00 EST, Height/Margaret (more content not included)... Normal [facility] Comment on above: Result Comment: Elec tronically Signed By: Param Kingsley PA-C\.br\Date and Time Signed: 10/28/24 14:05 EST\.br\Electronically Co-Signed By: Luís Greenfield DO\.br\Date and Time Co-Signed: 10/29/24 19:18 EST BMPon 10-28-2024 Anion gap [Moles/Vol] 10 mmol/L Normal 6-16 [facility] Comment on above: Performed By: #### 2 [id number] #### [facility] [address] [place] [address] Calcium [Mass/Vol] 9.3 mg/dL Normal 8.9-11.1 [facility] Comment on above: Performed By: #### 2 [id number] #### [facility] [address] [place] [address] Chloride [Moles/Vol] 106 mmol/L Normal 101-111 [facility] Comment on above: Performed By: #### 2 [id number] #### [facility] [address] [place] [address] CO2 [Moles/Vol] 25 mmol/L Normal 21-31 [facility] Comment on above: Performed By: #### 2 [id number] #### [facility] [address] [place] [address] Creatinine [Mass/Vol] 0.8 mg/dL Normal 0.5-1.3 [facility] Comment on above: Performed By: #### 2 [id number] #### [facility] [address] [place] [address] Glucose [Mass/Vol] 110 mg/dL Normal 55-199 [facility] Comment on above: Performed By: #### 2 [id number] #### [facility] [address] [place] [address] Potassium [Moles/Vol] 3.4 mmol/L Low 3.5-5.3 [facility] Comment on above: Performed By: #### 2 [id number] #### [facility] [address] [place] [address] Sodium [Moles/Vol] 138 mmol/L Normal 135-145 [facility] Comment on above: Performed By: #### 2 [id number] #### [facility] [address] [place] [address] Urea nitrogen [Mass/Vol] 14 mg/dL Normal 5-21 [facility] Comment on above: Performed By: #### 2 [id number] #### [facility] [address] [place] [address] Urea nitrogen/Creatinine [Mass ratio] 18 No Units Normal 10-20 [facility] Comment on above: Performed By: #### 2 [id number] #### [facility] [address] [place] [address] CBC w/ Auto Diffon 5 Basophils/100 WBC (Bld) 0.3 % Normal 0.0-2.0 [facility] Comment on above: Performed By: #### 2 [id number] #### [facility] [address] [place] [address] Basophils/Leukocytes Auto (Bld) [Pure # fraction] 0.0 E9/L Normal 0.0-0.2 [facility] Comment on above: Performed By: #### 2 [id number] #### [facility] [address] [place] [address] Eosinophils (Bld) [#/Vol] 0.1 E9/L Normal 0.0-0.5 [facility] Comment on above: Performed By: #### 2 [id number] #### [facility] [address] [place] [address] Eosinophils/100 WBC (Bld) 1.2 % Normal 0.0-8.0 [facility] Comment on above: Performed By: #### 2 [id number] #### [facility] [address] [place] [address] Erythrocyte distribution width (RBC) [Ratio] 13.8 % Normal 10.9-14.2 [facility] Comment on above: Performed By: #### 2 [id number] #### [facility] [address] [place] [address] Hematocrit (Bld) [Volume fraction] 38.7 % Normal 34.0-46.0 [facility] Comment on above: Performed By: #### 2 [id number] #### [facility] [address] [place] [address] Hemoglobin (Bld) [Mass/Vol] 13.1 g/dL Normal 12.0-16.0 [facility] Comment on above: Performed By: #### 2 [id number] #### [facility] [address] [place] [address] Lymphocytes (Bld) [#/Vol] 2.3 E9/L Normal 1.0-4.0 [facility] Comment on above: Performed By: #### 2 [id number] #### [facility] [address] [place] [address] Lymphocytes/100 WBC (Bld) 22.2 % Normal 14.0-50.0 [facility] Comment on above: Performed By: #### 2 [id number] #### [facility] [address] [place] [address] MCH (RBC) [Entitic mass] 29.3 pg Normal 27.0-34.0 [facility] Comment on above: Performed By: #### 2 [id number] #### [facility] [address] [place] [address] MCHC (RBC) [Mass/Vol] 33.8 g/dL Normal 31.4-36.0 [facility] Comment on above: Performed By: #### 2 193801 #### [facility] [address] [place] [address] MCV (RBC) [Entitic vol] 86.6 fL Normal 80.0-100.0 [facility] Comment on above: Performed By: #### 2 [id number] #### [facility] [address] [place] [address] Monocytes (Bld) [#/Vol] 0.6 E9/L Normal 0.2-1.0 [facility] Comment on above: Performed By: #### 2 [id number] #### [facility] [address] [place] [address] Neutrophils (Bld) [#/Vol] 7.2 E9/L Normal 2.0-7.5 [facility] Comment on above: Performed By: #### 2 615058 #### [facility] [address] [place] [address] Neutrophils/100 WBC (Bld) 70.1 % Normal 36.0-75.0 [facility] Comment on above: Performed By: #### 2 843065 #### [facility] [address] [place] [address] Platelet mean volume (Bld) [Entitic vol] 8.3 fL Normal 6.4-10.8 [facility] Comment on above: Performed By: #### 2 307623 #### [facility] [address] [place] [address] Platelets (Bld) [#/Vol] 303.0 E9/L Normal 150.0-500.0 [facility] Comment on above: Performed By: #### 2 140686 #### [facility] [address] [place] [address] RBC (Bld) [#/Vol] 4.5 E12/L Normal 4.3-5.9 [facility] Comment on above: Performed By: #### 2 163207 #### [facility] [address] [place] [address] WBC corrected for nucl RBC Auto (Bld) [#/Vol] 10.2 E9/L Normal 4.0-11.0 [facility] Comment on above: Performed By: #### 2 004603 #### [facility] [address] [place] [address] CHEMISTRYOrdered By: SYSTEM SYSTEM on 10-28-2024 Albumin [...] by: VALERIE Technologist: HERIBERTO Heard [facility] ED Clinical Summaryon 2024 ED Clinical Summary ED Clinical Summary [place] [id number] ED Clinical Summary Person Information Name: BELKYSPIPERBrandi Linares/[facility] Age: 24 Years : 2000 Sex: Female Language: Spanish PCP: Jenn Urban MD Marital Status: Single [...] 10/28/2024 09:31:16 10/28/2024 09:31:16 10/28/2024 09:31:16 ADDRESS: [address] [place] [id number] PHYS DOC NOTES: MEDICAL INFORMATION: Prescriptions Given: New Medications [facility]/pharmacy #[id number], [address] [place], [place] [id number], [phone] cephalexin (cephalexin 500 mg Cap) 1 Capsules [...] Medications to Continue Taking That Have Changed [facility]/pharmacy #[id number], [address], [place] [id number], [phone] START: ondansetron (ondansetron 4 mg Dis Tab) [...] symptoms arise. With: Address: When: Jenn Urban [address] [place] [address], [address] [place] [address] Business (1) In 3 days 10/31/2024 DIAGNOSIS: Kidney stone on right side; UTI (urinary tract infection) Normal [facility] ED Patient Summaryon 025 ED Patient Summary ED Patient Summary [address] [address] Patient Discharge Instructions Person Information Name: SHERIE RIZVI Age: 24 Years Arrival Date: 10/28/2024 06:45:36 Discharge Diagnosis: Kidney stone on right side; UTI (urinary tract infection) Primary Care Physician: Jenn Urban MD Provider Information Primary Provider: Luís Greenfield DO Advanced Production Hardener:Param Kingsley PA-C. The exam and treatment you received in the Emergency Department were for an urgent problem and are not intended as complete care. It is important that you follow up with a doctor, nurse practitioner, or physician???s child and youth program assistant for ongoing care. If your symptoms [...] symptoms arise. With: Address: When: Jenn Urban [address] [place] [address]., [address] [place] [address] [facility] (1) In 3 days 10/31/2024 In the event that this physician does not participate in your insurance network, please consult with your insurance company to find a nearby participating provider. Patient Education Materials: Urinary Tract Infection, Adult; Kidney Stones A MESSAGE TO ALL PATIENTS REGARDING OPIOIDS PRESCRIPTION OPIOIDS: WHAT YOU NEED TO KNOW Prescription opioids can be used to help relieve gorxjifu-xg-kmjexz pain and are often prescribed following a [...] pharmacy mail-jaci (more content not included)... Normal [facility] Extra Blueon 10-28-2024 Tube Collected Plasma Yes Invalid Interpretation Code [facility] Comment on above: Performed By: #### 1 [id number] #### [facility] [address] [place] [address] HEMATOLOGYOrdered By: SYSTEM SYSTEM on 10-28-2024 Basophils/100 [...] [Mass/Vol] 4.5 g/dL Normal 3.3-5.0 [facility] Comment on above: Performed By: #### 2 162053 #### [facility] [address] [place] [address] Albumin/Globulin (S) [Mass conc ratio] 1.9 Normal 1.1-2.2 [facility] Comment on above: Performed By: #### 2 489405 #### [facility] [address] [place] [address] ALP [Catalytic activity/Vol] 63 Int._Unit/L Normal 21-98 [facility] Comment on above: Performed By: #### 2 064669 #### [facility] [address] [place] [address] ALT No additional P-5'-P [Catalytic activity/Vol] 10 Int._Unit/L Normal 6-46 [facility] Comment on above: Performed By: #### 2 926842 #### [facility] [address] [place] [address] AST [Catalytic activity/Vol] 14 Int._Unit/L Normal 5-43 [facility] Comment on above: Performed By: #### 2 637086 #### [facility] [address] [place] [address] Bilirubin [Mass/Vol] 0.8 mg/dL Normal 0.0-1.1 [facility] Comment on above: Performed By: #### 2 510187 #### [facility] [address] [place] [address] Bilirubin.direct [Mass/Vol] 0.1 mg/dL Normal 0.0-0.4 [facility] Comment on above: Performed By: #### 2 405678 #### [facility] [address] [place] [address] Bilirubin.indirect [Mass or moles/Vol] 0.7 mg/dL Normal 0.1-0.9 [facility] Comment on above: Performed By: #### 2 182883 #### [facility] [address] [place] [address] Globulin (S) [Mass/Vol] 2.4 g/dL Normal 1.4-4.0 [facility] Comment on above: Performed By: #### 2 166375 #### [facility] [address] [place] [address] Protein [Mass/Vol] 6.9 g/dL Normal 6.0-7.8 [facility] Comment on above: Performed By: #### 2 311752 #### [facility] [address] [place] [address] Lipase Levelon 10-28-2024 Lipase [Catalytic activity/Vol] 44 U/L Normal 13-58 [facility] Comment on above: Performed By: #### 2 167224 #### [facility] [address] [place] [address] SEROLOGYOrdered By: Dionne peter on 10-28-2024 HCG.beta subunit (U) [Moles/Vol] Negative Normal [facility] Man Sero U BetaHcg Qualon 10-28-2024 HCG.beta subunit (U) [Moles/Vol] Negative Normal [facility] Comment on above: Performed By: #### 2 [id number] #### [facility] [address] [place] [address] UA with Cult Rflxon 10-28-19 25 Bacteria Auto Ql (U) 1+ /HPF Abnormal Trace Fish er [facility] Comment on above: Performed By: #### 4 [id number] #### [facility] [address] [place] [address] Bilirubin Ql (U) Negative Normal Negative [facility] Comment on above: Performed By: #### 4 [id number] #### [facility] [address] [place] [address] Calcium oxalate crystals Computer assisted Ql (U) Present Abnormal [facility] Comment on above: Performed By: #### 4 [id number] #### [facility] [address] [place] [address] Clarity (U) Turbid Abnormal Clear [facility] Comment on above: Performed By: #### 4 [id number] #### [facility] [address] [place] [address] Color (U) Yellow Normal Yellow [facility] Comment on above: Result Comment: Micr oscopic readings are only performed on those samples that meet specific criteria set forth by [facility]. Performed By: #### 4 [id number] #### [facility] [address] [place] [address] Epithelial cells.squamous Auto (Urine sed) [#/Area] 0-2 Invalid Interpretation Code [facility] Comment on above: Performed By: #### 4 [id number] #### [facility] [address] [place] [address] Glucose Ql (U) Negative Normal Negative [facility] Comment on above: Performed By: #### 4 [id number] #### [facility] [address] [place] [address] Hemoglobin Auto test strip (U) [Mass/Vol] 3+ mg/dL Abnormal Negative [facility] Comment on above: Performed By: #### 4 [id number] #### [facility] [address] [place] [address] Ketones Auto test strip Ql (U) Negative Normal Negative [facility] Comment on above: Performed By: #### 4 [id number] #### [facility] [address] [place] [address] Leukocyte esterase Auto test strip Ql (U) 75 Shaylee/uL Abnormal Negative [facility] Comment on above: Performed By: #### 4 [id number] #### [facility] [address] [place] [address] Mucus Auto Ql (U) 1+ [id number] Abnormal Negative [facility] Comment on above: Performed By: #### 4 [id number] #### [facility] [address] [place] [address] Nitrite Auto test strip Ql (U) Negative Normal Negative [facility] Comment on above: Performed By: #### 4 [id number] #### [facility] [address] [place] [address] pH (U) 5.5 [pH] Invalid Interpretation Code 5.0-9.0 [facility] Comment on above: Performed By: #### 4 [id number] #### [facility] [address] [place] [address] Protein Ql (U) 1+ mg/dL Abnormal Negative [facility] Comment on above: Performed By: #### 4 [id number] #### [facility] [address] [place] [address] RBC Ql (U) >75 Abnormal 0-3 [facility] Comment on above: Performed By: #### 4 [id number] #### [facility] [address] [place] [address] Specific gravity (U) [Rel density] 1.030 Invalid Interpretation Code 1.005-1.030 [facility] Comment on above: Performed By: #### 4 [id number] #### [facility] [address] [place] [address] Urobilinogen (U) [Mass/Vol] Negative Normal Negative [facility] Comment on above: Performed By: #### 4 [id number] #### [facility] [address] [place] [address] WBC Auto (Urine sed) [#/Area] 16-25 Abnormal 0-5 [facility] Comment on above: Performed By: #### 4 [id number] #### [facility] [address] [place] [address] Type of Urine collection method Clean Catch Normal [facility] Comment on above: Performed By: #### 4 [id number] #### [facility] [address] [place] [address] URINALYSISOrdered By: SYSTEM SYSTEM on 10-28-2024 Bacteria [...] specific criteria set forth by [facility]. Epithelial cells.squamous Auto (Urine sed) [...] (U) >75 graded/HPF Invalid Interpretation Code 0-3graded/HPF [facility] UA Auto SS Specific gravity (U) [Rel density] 1.030 *NA* (10/28/24 7:01 AM) Invalid Interpretation Code 1.005 - 1.030 [facility] UA Auto SS Urobilinogen (U) [Mass/Vol] Negative Normal Negativemg/dL [facility] UA Auto SS WBC Auto (Urine sed) [#/Area] 16-25 graded/HPF Invalid Interpretation Code 0-5graded/HPF [facility] UA Auto SS URINALYSISOrdered By: Rey Barrera on 10-28-2024 UA Spec Desc Clean Catch (10/28/24 7:01 AM) Normal [facility] UA Auto SS Work Phone: eGFRon 10-28-2024 eGFR 107 mL/min/1.73 m2 Normal >=59 [facility] Comment on above: Performed By: #### 1 [id number] #### [facility] [address] [place] [address] MRI Breast w/o and w/ Contra st, [...] images were generated at the dedicated breast [employer] workstation FINDINGS: Report Both breasts are heterogeneously dense with moderate background parenchymal enhancement. There are no suspicious masses, areas of abnormal masslike enhancement, suspicious lymphadenopathy, or other findings of concern identified. CAD analysis was performed and used in the interpretation. Board Certified Radiologists. Accredited by the ACR and FDA. MAMMOGRAPHY IS VERY IMPORTANT TO YOUR HEALTH. THE CURRENT [employer] [...] 10/16/2024 15:17 EST by Jean-Pierre Serrano MD Normal [facility] C Urineon 10-12-2024 Bacteria identified Cx Nom (U) Microbiology PROCEDURE: Urine Culture [R1] SOURCE: U CleanCatch BODY SITE: COLLECTED DATE/TIME: 10/10/2024 14:04 EST RECEIVED DATE/TIME: 10/10/2024 16:41 EST START DATE/TIME: 10/10/2024 16:41 EST FREE TEXT SOURCE: Cesar BAG PATCHER-C, Yessy L Cesar BAG PATCHER-C, Yessy L FINAL REPORTS Final Report [] Verified [...] Locations R1: [facility], [address] [place] [address], [address] , [place], Normal [facility] Comment on above: Performed By: #### 2 [id number] #### [facility] [address] [place] [address] Ambulatory Visit Summaryon 0 10-10-2024 Ambulatory Visit Summary Ambulatory Visit Summary BELKYSSHERIE Mary :2000 Visit Date:10/10/2024 Ambulatory Visit Instructions Your Diagnosis Pyelonephritis Glucosuria UTI (urinary tract infection) Your Care Team Attending Physician - Yessy Feliciano Primary Care Physician - Wilmar PIERCE, Jenn [...] hours Pyelonephritis Duration: 10 Days Pickup at [facility]/pharmacy #6199 New docusate (Colace 100 mg Cap) 1 Capsules By Mouth Every day as needed for for constipation Pickup at [facility]/pharmacy #6109 New phenazopyridine (Pyridium 200 mg Tab) 1 Tablets By Mouth 3 times a day as needed for urinary pain Duration: 3 Days Refills: 1 Pickup at [facility]/pharmacy #6173 Changed polyethylene glycol 3350 (Miralax 3350 17 gram packet) 17 Gram By Mouth Every day Pickup at [facility]/pharmacy #6173 Changed polyethylene glycol 3350 (polyethylene [...] By Mouth Every day Pharmacy Information [facility]/pharmacy #6173: [address] [place], [place] [phone] Medications and Immunizations Administered Not Given influenza [...] (more content not included)... Normal [facility] CBC w/ Auto Diffon 5 Basophils/100 WBC (Bld) 0.5 % Normal 0.0-2.0 [facility] Comment on above: Performed By: #### 2 [id number] #### [facility] [address] [place] [address] Basophils/Leukocytes Auto (Bld) [Pure # fraction] 0.1 E9/L Normal 0.0-0.2 [facility] Comment on above: Performed By: #### 2 676265 #### [facility] [address] [place] [address] Eosinophils (Bld) [#/Vol] 0.2 E9/L Normal 0.0-0.5 [facility] Comment on above: Performed By: #### 2 503137 #### [facility] [address] [place] [address] Eosinophils/100 WBC (Bld) 1.5 % Normal 0.0-8.0 [facility] Comment on above: Performed By: #### 2 912131 #### [facility] [address] [place] [address] Erythrocyte distribution width (RBC) [Ratio] 14.0 % Normal 10.9-14.2 [facility] Comment on above: Performed By: #### 2 [id number] #### [facility] [address] [place] [address] Hematocrit (Bld) [Volume fraction] 41.6 % Normal 34.0-46.0 [facility] Comment on above: Performed By: #### 2 [id number] #### [facility] [address] [place] [address] Hemoglobin (Bld) [Mass/Vol] 13.8 g/dL Normal 12.0-16.0 [facility] Comment on above: Performed By: #### 2 095468 #### [facility] [address] [place] [address] Lymphocytes (Bld) [#/Vol] 2.7 E9/L Normal 1.0-4.0 [facility] Comment on above: Performed By: #### 2 [id number] #### [facility] [address] [place] [address] Lymphocytes/100 WBC (Bld) 20.1 % Normal 14.0-50.0 [facility] Comment on above: Performed By: #### 2 006918 #### [facility] [address] [place] [address] MCH (RBC) [Entitic mass] 28.8 pg Normal 27.0-34.0 [facility] Comment on above: Performed By: #### 2 923962 #### [facility] [address] [place] [address] MCHC (RBC) [Mass/Vol] 33.3 g/dL Normal 31.4-36.0 [facility] Comment on above: Performed By: #### 2 279148 #### [facility] [address] [place] [address] MCV (RBC) [Entitic vol] 86.6 fL Normal 80.0-100.0 [facility] Comment on above: Performed By: #### 2 378943 #### [facility] [address] [place] [address] Monocytes (Bld) [#/Vol] 0.6 E9/L Normal 0.2-1.0 [facility] Comment on above: Performed By: #### 2 669471 #### [facility] [address] [place] [address] Neutrophils (Bld) [#/Vol] 9.9 E9/L High 2.0-7.5 [facility] Comment on above: Performed By: #### 2 638937 #### [facility] [address] [place] [address] Neutrophils/100 WBC (Bld) 73.6 % Normal 36.0-75.0 [facility] Comment on above: Performed By: #### 2 118134 #### [facility] [address] [place] [address] Platelet 369.0 E9/L Normal 150.0-500.0 [facility] Comment on above: Performed By: #### 2 512363 #### [facility] [address] [place] [address] Platelet mean volume (Bld) [Entitic vol] 8.6 fL Normal 6.4-10.8 [facility] Comment on above: Performed By: #### 2 [id number] #### [facility] [address] [place] [address] RBC (Bld) [#/Vol] 4.8 E12/L Normal 4.3-5.9 [facility] Comment on above: Performed By: #### 2 124293 #### [facility] [address] [place] [address] WBC corrected for nucl RBC Auto (Bld) [#/Vol] 13.5 E9/L High 4.0-11.0 [facility] Comment on above: Performed By: #### 2 836510 #### [facility] [address] [place] [address] CHEMISTRYOrdered By: SYSTEM SYSTEM on 10-10-2024 Albumin [...] [Mass/Vol] 4.7 g/dL Normal 3.3-5.0 [facility] Comment on above: Performed By: #### 2 060703 #### [facility] [address] [place] [address] Albumin/Globulin (S) [Mass conc ratio] 1.7 Normal 1.1-2.2 [facility] Comment on above: Performed By: #### 2 [id number] #### [facility] [address] [place] [address] ALP [Catalytic activity/Vol] 68 Int._Unit/L Normal 21-98 [facility] Comment on above: Performed By: #### 2 017461 #### [facility] [address] [place] [address] ALT No additional P-5'-P [Catalytic activity/Vol] 14 Int._Unit/L Normal 6-46 [facility] Comment on above: Performed By: #### 2 369849 #### [facility] [address] [place] [address] Anion gap [Moles/Vol] 11 mmol/L Normal 6-16 [facility] Comment on above: Performed By: #### 2 640275 #### [facility] [address] [place] [address] AST [Catalytic activity/Vol] 16 Int._Unit/L Normal 5-43 [facility] Comment on above: Performed By: #### 2 186616 #### [facility] [address] [place] [address] Bilirubin [Mass/Vol] 1.2 mg/dL High 0.0-1.1 [facility] Comment on above: Performed By: #### 2 407539 #### [facility] [address] [place] [address] Calcium [Mass/Vol] 9.9 mg/dL Normal 8.9-11.1 [facility] Comment on above: Performed By: #### 2 272530 #### [facility] [address] [place] [address] Chloride [Moles/Vol] 105 mmol/L Normal 101-111 [facility] Comment on above: Performed By: #### 2 664504 #### [facility] [address] [place] [address] CO2 [Moles/Vol] 26 mmol/L Normal 21-31 [facility] Comment on above: Performed By: #### 2 355753 #### [facility] [address] [place] [address] Creatinine [Mass/Vol] 0.8 mg/dL Normal 0.5-1.3 [facility] Comment on above: Performed By: #### 2 250983 #### [facility] [address] [place] [address] Globulin (S) [Mass/Vol] 2.8 g/dL Normal 1.4-4.0 [facility] Comment on above: Performed By: #### 2 100442 #### [facility] [address] [place] [address] Glucose [Mass/Vol] 95 mg/dL Normal 55-199 [facility] Comment on above: Performed By: #### 2 194757 #### [facility] [address] [place] [address] Potassium [Moles/Vol] 4.0 mmol/L Normal 3.5-5.3 [facility] Comment on above: Performed By: #### 2 938576 #### [facility] [address] [place] [address] Protein [Mass/Vol] 7.5 g/dL Normal 6.0-7.8 [facility] Comment on above: Performed By: #### 2 741839 #### [facility] [address] [place] [address] Sodium [Moles/Vol] 138 mmol/L Normal 135-145 [facility] Comment on above: Performed By: #### 2 527403 #### [facility] [address] [place] [address] Urea nitrogen [Mass/Vol] 12 mg/dL Normal 5-21 [facility] Comment on above: Performed By: #### 2 979122 #### [facility] [address] [place] [address] Urea nitrogen/Creatinine [Mass ratio] 15 No Units Normal 10-20 [facility] Comment on above: Performed By: #### 2 404605 #### [facility] [address] [place] [address] Family Medicine Office/Clini c Noteon 10-10-2024 Family [...] had a CAT scan. 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 Previous lab work reviewed she is been [...] day(s), # 20 tab(s), Refills(s) 0, Pharmacy: [facility]/pharmacy #6173, 158, cm, 10/10/24 13:53:00 EST, [...] constipation, # 100 cap(s), Refills(s) 0, Pharmacy: [facility]/pharmacy #6173, 158, cm, 10/10/24 13:53:00 EST, Height/Length Dosing, 63.1, kg, 10/10/24 13:53:00 EST, Weight Dosing phenazopyridine, 200 mg = 1 tab(s), Oral, TID, PRN urinary pain, X 3 day(s), # 9 tab(s), Refills(s) 1, Pharmacy (more content not included)... Normal [facility] Comment on above: Result Comment: Elec tronically Signed By: Yesys Feliciano\.br\Date and Time Signed: 10/10/24 14:44 EST [...] 107 mL/min/1.73 m2 Normal >=59 [facility] Comment on above: Performed By: #### 1 [id number] #### [facility] [address] [place] [address] BMPon 07-29-2024 Anion gap [Moles/Vol] 10 mmol/L Normal 6-16 [facility] Comment on above: Performed By: #### 2 [id number] #### [facility] [address] [place] [address] Calcium [Mass/Vol] 9.6 mg/dL Normal 8.9-11.1 [facility] Comment on above: Performed By: #### 2 [id number] #### [facility] [address] [place] [address] Chloride [Moles/Vol] 105 mmol/L Normal 101-111 [facility] Comment on above: Performed By: #### 2 [id number] #### [facility] [address] [place] [address] CO2 [Moles/Vol] 26 mmol/L Normal 21-31 [facility] Comment on above: Performed By: #### 2 [id number] #### [facility] [address] [place] [address] Creatinine [Mass/Vol] 0.9 mg/dL Normal 0.5-1.3 [facility] Comment on above: Performed By: #### 2 [id number] #### [facility] [address] [place] [address] Glucose [Mass/Vol] 114 mg/dL Normal 55-199 [facility] Comment on above: Performed By: #### 2 [id number] #### [facility] [address] [place] [address] Potassium [Moles/Vol] 3.9 mmol/L Normal 3.5-5.3 [facility] Comment on above: Performed By: #### 2 [id number] #### [facility] [address] [place] [address] Sodium [Moles/Vol] 137 mmol/L Normal 135-145 [facility] Comment on above: Performed By: #### 2 [id number] #### [facility] [address] [place] [address] Urea nitrogen [Mass/Vol] 15 mg/dL Normal 5-21 [facility] Comment on above: Performed By: #### 2 [id number] #### [facility] [address] [place] [address] Urea nitrogen/Creatinine [Mass ratio] 17 No Units Normal 10-20 [facility] Comment on above: Performed By: #### 2 [id number] #### [facility] [address] [place] [address] CBC w/ Auto Diffon 07-29-202 4 Basophils/100 WBC (Bld) 0.4 % Normal 0.0-2.0 [facility] Comment on above: Performed By: #### 2 [id number] #### [facility] [address] [place] [address] Basophils/Leukocytes Auto (Bld) [Pure # fraction] 0.1 E9/L Normal 0.0-0.2 [facility] Comment on above: Performed By: #### 2 [id number] #### [facility] [address] [place] [address] Eosinophils (Bld) [#/Vol] 0.1 E9/L Normal 0.0-0.5 [facility] Comment on above: Performed By: #### 2 [id number] #### [facility] [address] [place] [address] Eosinophils/100 WBC (Bld) 0.9 % Normal 0.0-8.0 [facility] Comment on above: Performed By: #### 2 [id number] #### [facility] [address] [place] [address] Erythrocyte distribution width (RBC) [Ratio] 14.6 % High 10.9-14.2 [facility] Comment on above: Performed By: #### 2 [id number] #### [facility] [address] [place] [address] Hematocrit (Bld) [Volume fraction] 40.2 % Normal 34.0-46.0 [facility] Comment on above: Performed By: #### 2 757192 #### [facility] [address] [place] [address] Hemoglobin (Bld) [Mass/Vol] 13.4 g/dL Normal 12.0-16.0 [facility] Comment on above: Performed By: #### 2 [id number] #### [facility] [address] [place] [address] Lymphocytes (Bld) [#/Vol] 1.9 E9/L Normal 1.0-4.0 [facility] Comment on above: Performed By: #### 2 [id number] #### [facility] [address] [place] [address] Lymphocytes/100 WBC (Bld) 15.0 % Normal 14.0-50.0 [facility] Comment on above: Performed By: #### 2 787103 #### [facility] [address] [place] [address] MCH (RBC) [Entitic mass] 28.5 pg Normal 27.0-34.0 [facility] Comment on above: Performed By: #### 2 [id number] #### [facility] [address] [place] [address] MCHC (RBC) [Mass/Vol] 33.3 g/dL Normal 31.4-36.0 [facility] Comment on above: Performed By: #### 2 954208 #### [facility] [address] [place] [address] MCV (RBC) [Entitic vol] 85.5 fL Normal 80.0-100.0 [facility] Comment on above: Performed By: #### 2 [id number] #### [facility] [address] [place] [address] Monocytes (Bld) [#/Vol] 0.6 E9/L Normal 0.2-1.0 [facility] Comment on above: Performed By: #### 2 [id number] #### [facility] [address] [place] [address] Neutrophils (Bld) [#/Vol] 10.1 E9/L High 2.0-7.5 [facility] Comment on above: Performed By: #### 2 [id number] #### [facility] [address] [place] [address] Neutrophils/100 WBC (Bld) 78.8 % High 36.0-75.0 [facility] Comment on above: Performed By: #### 2 856812 #### [facility] [address] [place] [address] Platelet 335.0 E9/L Normal 150.0-500.0 [facility] Comment on above: Performed By: #### 2 690405 #### [facility] [address] [place] [address] Platelet mean volume (Bld) [Entitic vol] 8.0 fL Normal 6.4-10.8 [facility] Comment on above: Performed By: #### 2 770889 #### [facility] [address] [place] [address] RBC (Bld) [#/Vol] 4.7 E12/L Normal 4.3-5.9 [facility] Comment on above: Performed By: #### 2 [id number] #### [facility] [address] [place] [address] WBC corrected for nucl RBC Auto (Bld) [#/Vol] 12.9 E9/L High 4.0-11.0 [facility] Comment on above: Performed By: #### 2 134090 #### [facility] [address] [place] [address] CHEMISTRYOrdered By: SYSTEM SYSTEM on 07-29-2024 Albumin [...] 2023 ED Clinical Summary ED Clinical Summary [address] [address] ED Clinical Summary Person Information Name: SHERIE RIZVI He/[facility] Age: 24 Years : 2000 Sex: Female Language: Spanish PCP: Jenn Urban MD Marital Status: Single MRN: [id number] Visit Id: Visit Reason: Nausea; Abdominal pain; [...] 07/29/2024 06:56:07 07/29/2024 06:56:07 07/29/2024 06:56:07 ADDRESS: [address] [id number] PHYS DOC NOTES: MEDICAL INFORMATION: Prescriptions Given: New Medications [facility]/pharmacy #[id number], [address], [place] [id number], [phone] ondansetron (Zofran ODT 4 mg Tab-Dis) 1 [...] up: With: Address: When: Jenn Urban [address] [place] [address]., [address] [place] [phone] Business (1) In 3 days DIAGNOSIS: Epigastric abdominal pain Normal [facility] ED Note-Physicianon 07-29-20 ED Note-Physician ED [...] and Complexity of Problems Differential Diagnosis: [] [facility] Data External documents reviewed: N/A My EKG [...] Nausea/Vomiting, # 16 tab(s), Refills(s) 0, Pharmacy: [facility]/pharmacy #[id number], 158, cm, 07/29/24 6:03:00 EST, Height/Length Dosing, 64.6, kg, 07/29/24 6:03:00 EST, Weight Dosing pantoprazole, 20 mg = 1 tab(s), Oral, Daily, X 14 day(s), # 14 tab(s), Refills(s) 0, [id number] 158, cm, 07/29/24 6:03:00 EST, Height/Length Dosing, 64.6, kg, 07/29/24 6:03:00 EST, Weight Dosing sucralfate, 1 gm = 1 tab(s), Oral, QID, X 10 day(s), # 40 tab(s), Refills(s) 0, [id number] 158, cm, 07/29/24 6:03:00 EST, Height/Length [...] (more content not included)... Normal [facility] Comment on above: Result Comment: Elec tronically Signed By: Jose Wilkinson DO\.br\Date and Time Signed: 07/29/24 06:52 EST ED Patient Summaryon 024 ED Patient Summary ED Patient Summary [address] [address] Patient Discharge Instructions Person Information Name: SHERIE RIZVI Age: 24 Years Arrival Date: 07/29/2024 05:51:54 Discharge Diagnosis: Epigastric abdominal pain Primary Care Physician: Jenn Urban MD Provider Information Primary Provider: Jose Wilkinson DO Advanced Production Hardener:None The exam and treatment you received in the Emergency Department were for an urgent problem and are not intended as complete care. It is important that you follow up with a doctor, nurse practitioner, or physician???s child and youth program assistant for ongoing care. If your symptoms become worse or you do not improve as expected and you are unable to reach your usual health care provider, you should return to the Emergency Department. We are available 24 hours a day. NORA RIZVIANNABrandi Hernandez has been given the following list of patient education materials, prescriptions and follow-up instructions: Follow-up Instructions: With: Address: When: Jenn Urban [address] [place], [place] [phone] Business (1) In 3 days In the event that this physician does not participate in your insurance network, please consult with your insurance company to find a nearby participating provider. Patient Education Materials: Abdominal Pain, Adult A MESSAGE TO ALL PATIENTS REGARDING OPIOIDS PRESCRIPTION OPIOIDS: WHAT YOU NEED TO KNOW Prescription opioids can be used to help relieve rjollyma-hd-wijdcf pain and are often prescribed following a [...] be struggling with addiction, tell your health care team coordinator scheduler and ask (more content not included)... Normal [facility] Extra Blueon 07-29-2024 Tube Collected Plasma Yes Invalid Interpretation Code [facility] Comment on above: Performed By: #### 1 [id number] #### [facility] [address] [place] [address] HEMATOLOGYOrdered By: SYSTEM SYSTEM on 07-29-2024 Basophils/100 [...] [Mass/Vol] 4.3 g/dL Normal 3.3-5.0 [facility] Comment on above: Performed By: #### 2 [id number] #### [facility] [address] [place] [address] Albumin/Globulin (S) [Mass conc ratio] 1.4 Normal 1.1-2.2 [facility] Comment on above: Performed By: #### 2 127055 #### [facility] [address] [place] [address] ALP [Catalytic activity/Vol] 77 Int._Unit/L Normal 21-98 [facility] Comment on above: Performed By: #### 2 [id number] #### [facility] [address] [place] [address] ALT No additional P-5'-P [Catalytic activity/Vol] 9 Int._Unit/L Normal 6-46 [facility] Comment on above: Performed By: #### 2 535559 #### [facility] [address] [place] [address] AST [Catalytic activity/Vol] 12 Int._Unit/L Normal 5-43 [facility] Comment on above: Performed By: #### 2 [id number] #### [facility] [address] [place] [address] Bilirubin [Mass/Vol] 1.0 mg/dL Normal 0.0-1.1 [facility] Comment on above: Performed By: #### 2 755841 #### [facility] [address] [place] [address] Bilirubin.direct [Mass/Vol] 0.2 mg/dL Normal 0.0-0.4 [facility] Comment on above: Performed By: #### 2 981162 #### [facility] [address] [place] [address] Bilirubin.indirect [Mass or moles/Vol] 0.8 mg/dL Normal 0.1-0.9 [facility] Comment on above: Performed By: #### 2 [id number] #### [facility] [address] [place] [address] Globulin (S) [Mass/Vol] 3.0 g/dL Normal 1.4-4.0 [facility] Comment on above: Performed By: #### 2 144751 #### [facility] [address] [place] [address] Protein [Mass/Vol] 7.3 g/dL Normal 6.0-7.8 [facility] Comment on above: Performed By: #### 2 119503 #### [facility] [address] [place] [address] Lipase Levelon 07-29-2024 Lipase [Catalytic activity/Vol] 48 U/L Normal 13-58 [facility] Comment on above: Performed By: #### 2 [id number] #### [facility] [address] [place] [address] SEROLOGYOrdered By: Haley Cruz on 07-29-2024 HCG.beta subunit (U) [Moles/Vol] Negative Normal [facility] Man Sero U BetaHcg Qualon 07-29-2024 HCG.beta subunit (U) [Moles/Vol] Negative Normal [facility] Comment on above: Performed By: #### 2 [id number] #### [facility] [address] [place] [address] UA with Cult [employer]xon 07-29-20 24 Bilirubin Ql (U) 1+ mg/dL Abnormal Negative [facility] Comment on above: Performed By: #### 4 [id number] #### [facility] [address] [place] [address] Clarity (U) SL CLOUDY Invalid Interpretation Code [facility] Comment on above: Performed By: #### 4 [id number] #### [facility] [address] [place] [address] Color (U) YELLOW Normal Yellow [facility] Comment on above: Performed By: #### 4 [id number] #### [facility] [address] [place] [address] Crystals.amorphous Computer assisted Ql (U) Present Abnormal [facility] Comment on above: Performed By: #### 4 [id number] #### [facility] [address] [place] [address] Epithelial cells.squamous Auto (Urine sed) [#/Area] 0-[address] [facility] Comment on above: Performed By: #### 4 [id number] #### [facility] [address] [place] [address] Glucose Ql (U) Negative Normal Negative [facility] Comment on above: Performed By: #### 4 [id number] #### [facility] [address] [place] [address] Hemoglobin Auto test strip (U) [Mass/Vol] Negative Normal Negative [facility] Comment on above: Performed By: #### 4 [id number] #### [facility] [address] [place] [address] Ketones Ql (U) TRACE Abnormal Negative [facility] Comment on above: Performed By: #### 4 [id number] #### [facility] [address] [place] [address] Leukocyte esterase Auto test strip Ql (U) Negative Normal Negative [facility] Comment on above: Performed By: #### 4 [id number] #### [facility] [address] [place] [address] Nitrite Auto test strip Ql (U) Negative Normal Negative [facility] Comment on above: Performed By: #### 4 [id number] #### [facility] [address] [place] [address] pH (U) 6.0 [pH] Invalid Interpretation Code 5.0-9.0 [facility] Comment on above: Performed By: #### 4 [id number] #### [facility] [address] [place] [address] Protein Ql (U) TRACE Abnormal Negative [facility] Comment on above: Performed By: #### 4 [id number] #### [facility] [address] [place] [address] RBC Ql (U) 0-3 Normal 0-3 [facility] Comment on above: Performed By: #### 4 [id number] #### [facility] [address] [place] [address] Specific gravity (U) [Rel density] >=1.030 Invalid Interpretation Code 1.005-1.030 [facility] Comment on above: Performed By: #### 4 [id number] #### [facility] [address] [place] [address] Urobilinogen Qn (U) 1.0 Normal 0.0-1.0 [facility] Comment on above: Performed By: #### 4 [id number] #### [facility] [address] [place] [address] WBC Auto (Urine sed) [#/Area] 0-5 Normal 0-5 [facility] Comment on above: Performed By: #### 4 [id number] #### [facility] [address] [place] [address] Type of Urine collection method Clean Catch Normal [facility] Comment on above: Performed By: #### 4 [id number] #### [facility] [address] [place] [address] URINALYSISOrdered By: Lionel Cruz on 07-29-2024 Bilirubin [...] Auto (Urine sed) [#/Area] 0-2 graded/HPF Normal [facility] UA Aut o SS Glucose Ql (U) [...] AM) Invalid Interpretation Code 1.005 - 1.030 [facility] UA Auto SS Urobilinogen Qn (U) 1.0 (07/29/24 6:08 AM) Normal 0.0 - 1.0 [facility] UA Auto SS WBC Auto (Urine sed) [#/Area] 0-5 graded/HPF Normal 0-5graded/HPF [facility] UA Auto SS URINALYSISOrdered By: Michael Gunter on 07-29-2024 UA Spec Desc Clean Catch (07/29/24 6:08 AM) Normal [facility] UA Auto SS eGFRon 07-29-2024 eGFR 93 mL/min/1.73 m2 Normal >=59 [facility] Comment on above: Performed By: #### 1 [id number] #### [facility] [address] [place] [address] Allison 07-11-2024 TAMEKA Telephone ([facility]) SHERIE RIZVI ([id number]) 4 F Date Time Provider Department 07/11/24 SARITA RESENDIZ [facility] During your visit today, we [...] have family/friend present for procedure transport home:Patient/patient ambulatory service representative was told that if they do [...] area. Any barriers to Patient learning: Patient/Patient Chief Cruiser responded appropriately on phone. 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 Typing was confirmed by monoclonal antibody microscopic immunofluorescence. 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 Typing was confirmed by monoclonal antibody microscopic immunofluorescence. Performed at: [address] [id number] PhD Yo Zamora Performed By: #### 1 [id number] #### [facility] [address] [place] [address] Chlam/GC/Trich,NAAon 024 C. trachomatis rRNA JERMAINE+probe Ql (Unsp spec) Negative Invalid Interpretation Code Negative [facility] Comment on above: Performed By: #### 1 [id number] #### [facility] [address] [place] [address] N. gonorrhoeae rRNA JERMAINE+probe Ql (Unsp spec) Negative Invalid Interpretation Code Negative [facility] Comment on above: Performed By: #### 1 [id number] #### [facility] [address] [place] [address] T. vaginalis rRNA JERMAINE+probe Ql (Unsp spec) Negative Invalid Interpretation Code Negative [facility] Comment on above: Result Comment: Perf ormed at: =G [address] [id number] MD Marck Barakat Performed By: #### 1 [id number] #### [facility] [address] [place] [address] C Urineon 06-30-2024 Bacteria identified Cx Nom (U) Microbiology PROCEDURE: Urine Culture [R1] SOURCE: U CleanCatch BODY SITE: COLLECTED DATE/TIME: 06/28/2024 15:08 EDT RECEIVED DATE/TIME: 06/28/2024 16:16 EDT START DATE/TIME: 06/28/2024 16:16 EDT FREE TEXT SOURCE: Hansa MAXWELL, Toan Santo PA-C, Toan FINAL REPORTS Final Report [] Verified Date/Time: 06/30/2024 09:37 EDT <10,000 cfu/ml Mixed skin contaminants Performing Locations R1: This test was performed at: [facility], [address] [place] [address], [id number] , [place], Normal [facility] Comment on above: Performed By: #### 2 [id number] #### [facility] [address] [place] [address] ED Note-Physicianon 06-29-20 ED Note-Physician ED Note-Physician [...] # 14 cap(s), Refills(s) 0, Pharmacy: [facility]/pharmacy #[id number], 158, cm, 06/28/24 14:54:00 EDT, [...] Urban In 3 days 07/01/2024 EDT [address] [place] [phone]- Business (1) Additional Instructions: Patient Education Urinary [...] (more content not included)... Normal [facility] Comment on above: Result Comment: Elec tronically Signed By: Toan Santo PA-C\.br\Date and Time Signed: 06/28/24 17:19 EDT\.br\Electronically Co-Signed By: Luís Greenfield DO\.br\Date and Time Co-Signed: 06/29/24 07:13 EDT ED Clinical Summaryon 2023 ED Clinical Summary ED Clinical Summary [place] [address] ED Clinical Summary Person Information Name: SHERIE RIZVI He/[facility] Age: 24 Years : 2000 Sex: Female Language: Spanish PCP: Jenn Urban MD Marital Status: Single [...] 06/28/2024 17:23:49 06/28/2024 17:23:49 06/28/2024 17:23:49 ADDRESS: [address] [id number] PHYS DOC NOTES: MEDICAL INFORMATION: Prescriptions Given: New Medications [facility]/pharmacy #[id number], [address], [place] [id number], [phone] lidocaine topical (lidocaine Top 2% Gel 5 [...] up: With: Address: When: Jenn Urban [address] [place] [phone] Business (1) In 3 days 07/01/2024 DIAGNOSIS: 1:UTI (urinary tract infection), bacterial; Bacterial infection, unspecified; Vulvovaginal rash Normal [facility] ED Patient Summaryon 024 ED Patient Summary ED Patient Summary [address] [address] Patient Discharge Instructions Person Information Name: SHERIE RIZVI Age: 24 Years Arrival Date: 06/28/2024 14:46:44 Discharge Diagnosis: 1:UTI (urinary tract infection), bacterial; Bacterial infection, unspecified; Vulvovaginal rash Primary Care Physician: Jenn Urban MD Provider Information Primary Provider: Luís Greenfield DO Advanced Production Hardener:Toan Santo PA-C The exam and treatment you received in the Emergency Department were for an urgent problem and are not intended as complete care. It is important that you follow up with a doctor, nurse practitioner, or physician???s child and youth program assistant for ongoing care. If your symptoms [...] Instructions: With: Address: When: Jenn Urban [address] [place] [address] [employer] (1) In 3 days 07/01/2024 In the event that this physician does not participate in your insurance network, please consult with your insurance company to find a nearby participating provider. Patient Education Materials: Urinary Tract Infection, Adult A MESSAGE TO ALL PATIENTS REGARDING OPIOIDS PRESCRIPTION OPIOIDS: WHAT YOU NEED TO KNOW Prescription opioids can be used to help relieve evhxreyv-yj-tmiyce pain and are often prescribed following a [...] (more content not included)... Normal [facility] Reference Laboratory Testing Ordered By: Toan Santo on 06-28-2024 Viral Cult Spec Source Vaginal Invalid Interpretation Code [facility] [employer] Work Phone: SEROLOGYOrdered By: Jalyn sosa on 06-28-2024 HCG.beta subunit (U) [Moles/Vol] Negative Normal [facility] Man Sero U BetaHcg Qualon 06-28-2024 HCG.beta subunit (U) [Moles/Vol] Negative Normal [facility] Comment on above: Performed By: #### 2 [id number] #### [facility] [facility] [address] [place] [address] UA with Cult Rflxon 06-28-20 24 Bacteria Auto Ql (U) Trace Normal Trace Fish [facility] Comment on above: Performed By: #### 4 [id number] #### [facility] [address] [place] [address] Bilirubin Ql (U) Negative Normal Negative [facility] Comment on above: Performed By: #### 4 [id number] #### [facility] [address] [place] [address] Clarity (U) Turbid Abnormal Clear [facility] Comment on above: Performed By: #### 4 [id number] #### [facility] [address] [place] [address] Color (U) Yellow Normal Yellow [facility] Comment on above: Result Comment: Micr oscopic readings are only performed on those samples that meet specific criteria set forth by [facility]. Performed By: #### 4 [id number] #### [facility] [address] [place] [address] Epithelial cells.squamous Auto (Urine sed) [#/Area] >10 Invalid Interpretation Code [facility] Comment on above: Performed By: #### 4 [id number] #### [facility] [address] [place] [address] Glucose Ql (U) Negative Normal Negative [facility] Comment on above: Performed By: #### 4 [id number] #### [facility] [address] [place] [address] Hemoglobin Auto test strip (U) [Mass/Vol] 1+ mg/dL Abnormal Negative [facility] Comment on above: Performed By: #### 4 [id number] #### [facility] [address] [place] [address] Ketones Auto test strip Ql (U) Negative Normal Negative [facility] Comment on above: Performed By: #### 4 [id number] #### [facility] [address] [place] [address] Leukocyte esterase Auto test strip Ql (U) 250 Shaylee/uL Abnormal Negative [facility] Comment on above: Performed By: #### 4 [id number] #### [facility] [address] [place] [address] Mucus Auto Ql (U) Trace Normal Negative [facility] Comment on above: Performed By: #### 4 [id number] #### [facility] [address] [place] [address] Nitrite Auto test strip Ql (U) Negative Normal Negative [facility] Comment on above: Performed By: #### 4 [id number] #### [facility] [address] [place] [address] pH (U) 6.0 [pH] Invalid Interpretation Code 5.0-9.0 [facility] Comment on above: Performed By: #### 4 [id number] #### [facility] [address] [place] [address] Protein Ql (U) Trace Abnormal Negative [facility] Comment on above: Performed By: #### 4 [id number] #### [facility] [address] [place] [address] RBC Ql (U) 4-20 Abnormal 0-3 [facility] Comment on above: Performed By: #### 4 [id number] #### [facility] [address] [place] [address] Specific gravity (U) [Rel density] 1.026 Invalid Interpretation Code 1.005-1.030 [facility] Comment on above: Performed By: #### 4 [id number] #### [facility] [address] [place] [address] Urobilinogen (U) [Mass/Vol] Negative Normal Negative [facility] Comment on above: Performed By: #### 4 [id number] #### [facility] [address] [place] [address] WBC Auto (Urine sed) [#/Area] 16-25 Abnormal 0-5 [facility] Comment on above: Performed By: #### 4 [id number] #### [facility] [address] [place] [address] Type of Urine collection method Clean Catch Normal [facility] Comment on above: Performed By: #### 4 [id number] #### [facility] [address] [place] [address] URINALYSISOrdered By: SYSTEM SYSTEM on 06-28-2024 Bacteria Auto Ql (U) Trace /HPF Normal Trace/HPF FT UA Auto SS Bilirubin Ql (U) Negative Normal Negativemg/dL FT UA Auto SS Clarity (U) Turbid *ABN* (06/28/24 3:08 PM) Invalid Interpretation Code Clear FT UA Auto SS Color (U) Yellow 1 (06/28/24 3:08 PM) Normal Yellow FT UA Auto SS Comment on above: Interpretive Data: M icroscopic readings are only performed on those samples that meet specific criteria set forth by [facility]. Epithelial cells.squamous Auto (Urine sed) [#/Area] >10 graded/HPF Invalid Interpretation Code FT UA Auto SS Glucose Ql (U) Negative Normal Negativemg/dL FT UA Auto SS Hemoglobin Auto test strip (U) [Mass/Vol] 1+ mg/dL Invalid Interpretation Code Negativemg/dL FT UA Auto SS Ketones Auto test strip Ql (U) Negative Normal Negativemg/dL FT UA Auto SS Leukocyte esterase Auto test strip Ql (U) 250 Shaylee/uL Shaylee/uL Invalid Interpretation Code NegativeLeu/uL FT UA Auto SS Mucus Auto Ql (U) Trace graded/LPF Normal Negati vegraded/ LPF FT UA Auto SS Nitrite Auto test strip Ql (U) Negative Normal Negativemg/dL FT UA Auto SS pH (U) 6.0 *NA* (06/28/24 3:08 PM) Invalid Interpretation Code 5.0 - 9.0 [facility] UA Auto SS Protein Ql (U) Trace mg/dL Invalid Interpretation Code Negativemg/dL FT UA Auto SS RBC Ql (U) 4-20 graded/HPF Invalid Interpretation Code 0-3graded/HPF [facility] UA Auto SS Specific gravity (U) [Rel density] 1.026 *NA* (06/28/24 3:08 PM) Invalid Interpretation Code 1.005 - 1.030 FT UA Auto SS Urobilinogen (U) [Mass/Vol] Negative Normal Negativemg/dL [facility] UA Auto SS WBC Auto (Urine sed) [#/Area] 16-25 graded/HPF Invalid Interpretation Code 0-5graded/HPF [facility] UA Auto SS URINALYSISOrdered By: Toan Santo on 06-28-2024 UA Spec Desc Clean Catch (06/28/24 3:08 PM) Normal [facility] UA Auto SS Work Phone: Viral Cult, Generalon 2023 Viral Cult Spec Source Vaginal Invalid Interpretation Code [facility] Comment on above: Performed By: #### 1 [id number] #### [facility] [address] [place] [address] ED Note-Physicianon 06-17-20 ED Note-Physician ED Note-Physician Basic Information Time Seen: Hansa MAXWELL Toan 06/11/2024 10:41 Chief Complaint abd pain. pressure [...] fever, chills, nausea or vomiting. She tried qhos-fys-rcdeped Gas-X and Tums without much relief. No [...] mL, Refill(s) 0, may repeat in, [facility]/pharmacy #[id number], 157.4, cm, 06/11/24 10:45:00 EDT, Height/Length Dosing, 65.8, kg, 06/11/24 10:45:00 EDT, Weight Dosing nitrofurantoin, 100 mg = 1 cap(s), Oral, BID, X 7 day(s), # 14 cap(s), Refills(s) 0, [id number] 157.4, cm, 06/11/24 10:45:00 EDT, Height/Length Dosing, 65.8, kg, 06/11/24 10:45:00 EDT, Weight Dosing polyethylene glycol 3350, 17 gram, Oral, Daily, dissolve in water before taking, # 255 gram, Refills(s) 0, [id number] 157.4, cm, 06/11/24 10:45:00 EDT, Height/Length [...] Urban In 3 days 06/14/2024 EDT [address] [place] [address]- Business (1) Additional Instructions: Patient Education Urinary [...] made to ensure accuracy, however, inadvertently computerized promotional representative mistakes may be present. Appropriate healthcare PPE [...] (more content not included)... Normal [facility] Comment on above: Result Comment: Elec [...] Locations R1: This test was performed at: [facility], [address] [place] [address], [id number]- , , [facility] Comment on above: Performed By: #### 2 [id number] #### [facility] [address] [place] [address] ED Clinical Summaryon 2023 ED Clinical Summary ED Clinical Summary [address] [address] ED Clinical Summary Person Information Name: SHERIE RIZVI/JoshPaulie Age: 23 Years : 2000 Sex: Female Language: Spanish PCP: Jenn Urban MD Marital Status: Single [...] 06/11/2024 12:23:12 06/11/2024 12:23:12 06/11/2024 12:23:12 ADDRESS: [address] [id number] PHYS DOC NOTES: MEDICAL INFORMATION: Prescriptions Given: New Medications [facility]/pharmacy #[id number], [address], [place] [id number], [phone] magnesium citrate (magnesium citrate 8.85% Oral Liq [...] up: With: Address: When: Jenn Urban [address] [place], [place] [id number] Business (1) In 3 days 06/14/2024 DIAGNOSIS: Constipation; UTI (urinary tract infection) Normal [facility] ED Patient Summaryon 024 ED Patient Summary ED Patient Summary [address] [address] Patient Discharge Instructions Person Information Name: BELKYSNORASHERIE Mary Age: 23 Years Arrival Date: 06/11/2024 10:35:30 Discharge Diagnosis: Constipation; UTI (urinary tract infection) Primary Care Physician: Jenn Urban MD Provider Information Primary Provider: Luís Greenfield DO Advanced Production Hardener:Toan Santo PA-C The exam and treatment you received in the Emergency Department were for an urgent problem and are not intended as complete care. It is important that you follow up with a doctor, nurse practitioner, or physician?s child and youth program assistant for ongoing care. If your symptoms become worse or you do not improve as expected and you are unable to reach your usual health care provider, you should return to the Emergency Department. We are available 24 hours a day. SHERIE RIZVI has been given the following list of patient education materials, prescriptions and follow-up instructions: Follow-up Instructions: With: Address: When: Jenn Wilmar [address] [place] [address] [employer] (1) In 3 days 06/14/2024 In the event that this physician does not participate in your insurance network, please consult with your insurance company to find a nearby participating provider. Patient Education Materials: Urinary Tract Infection, Adult; Constipation, Adult A MESSAGE TO ALL PATIENTS REGARDING OPIOIDS PRESCRIPTION OPIOIDS: WHAT YOU NEED TO KNOW Prescription opioids can be used to help relieve ogfftdqj-qx-cpopiy pain and are often prescribed following a [...] be struggling with addiction, tell your health care team coordinator scheduler and ask (more content not included)... Normal [facility] SEROLOGYOrdered By: Lili Guerrero on 06-11-2024 HCG.beta subunit (U) [Moles/Vol] Negative Normal [facility] Man Sero U BetaHcg Qualon 06-11-2024 HCG.beta subunit (U) [Moles/Vol] Negative Normal [facility] Comment on above: Performed By: #### 2 [id number] #### [facility] [address] [place] [address] UA with Cult Rflxon 06-11-20 24 Bacteria Auto Ql (U) Trace Normal Trace Fish er [facility] Comment on above: Performed By: #### 4 [id number] #### [facility] [address] [place] [address] Bilirubin Ql (U) Negative Normal Negative [facility] Comment on above: Performed By: #### 4 [id number] #### [facility] [address] [place] [address] Clarity (U) Clear Normal Clear [facility] Comment on above: Performed By: #### 4 [id number] #### [facility] [address] [place] [address] Color (U) Light-Yellow Normal Yellow [facility] Comment on above: Result Comment: Micr oscopic readings are only performed on those samples that meet specific criteria set forth by [facility]. Performed By: #### 4 [id number] #### [facility] [address] [place] [address] Epithelial cells.squamous Auto (Urine sed) [#/Area] 5-8 Invalid Interpretation Code [facility] Comment on above: Performed By: #### 4 [id number] #### [facility] [address] [place] [address] Glucose Ql (U) Negative Normal Negative [facility] Comment on above: Performed By: #### 4 [id number] #### [facility] [address] [place] [address] Hemoglobin Auto test strip (U) [Mass/Vol] Negative Normal Negative [facility] Comment on above: Performed By: #### 4 [id number] #### [facility] [address] [place] [address] Ketones Auto test strip Ql (U) Negative Normal Negative [facility] Comment on above: Performed By: #### 4 [id number] #### [facility] [address] [place] [address] Leukocyte esterase Auto test strip Ql (U) 25 Shaylee/uL Normal Negative [facility] Comment on above: Performed By: #### 4 [id number] #### [facility] [address] [place] [address] Mucus Auto Ql (U) Negative Normal Negative [facility] Comment on above: Performed By: #### 4 [id number] #### [facility] [address] [place] [address] Nitrite Auto test strip Ql (U) Negative Normal Negative [facility] Comment on above: Performed By: #### 4 [id number] #### [facility] [address] [place] [address] pH (U) 6.5 [pH] Invalid Interpretation Code 5.0-9.0 [facility] Comment on above: Performed By: #### 4 [id number] #### [facility] [address] [place] [address] Protein Ql (U) Negative Normal Negative [facility] Comment on above: Performed By: #### 4 [id number] #### [facility] [address] [place] [address] RBC Ql (U) 0-3 Normal 0-3 [facility] Comment on above: Performed By: #### 4 [id number] #### [facility] [address] [place], [place] [address] Specific gravity (U) [Rel density] 1.014 Invalid Interpretation Code 1.005-1.030 [facility] Comment on above: Performed By: #### 4 [id number] #### [facility] [address] [place] [address] Urobilinogen (U) [Mass/Vol] Negative Normal Negative [facility] Comment on above: Performed By: #### 4 [id number] #### [facility] [address] [place] [address] WBC Auto (Urine sed) [#/Area] 6-15 Abnormal 0-5 [facility] Comment on above: Performed By: #### 4 [id number] #### [facility] [address] [place] [address] Type of Urine collection method Clean Catch Normal [facility] Comment on above: Performed By: #### 4 [id number] #### [facility] [address] [place] [address] URINALYSISOrdered By: SYSTEM SYSTEM on 06-11-2024 Bacteria Auto Ql (U) Trace /HPF Normal Trace/HPF FT UA Auto SS Bilirubin Ql (U) Negative Normal Negativemg/dL FT UA Auto SS Clarity (U) Clear (06/11/24 10:51 AM) Normal Clear [facility] UA Auto SS Color (U) Light-Yellow 1 (06/11/24 10:51 AM) Normal Yellow [facility] UA Auto SS Comment on above: Interpretive Data: M icroscopic readings are only performed on those samples that meet specific criteria set forth by [facility]. Epithelial cells.squamous Auto (Urine sed) [#/Area] 5-8 graded/HPF Invalid Interpretation Code [facility] UA Auto SS Glucose Ql (U) Negative Normal Negativemg/dL FT UA Auto SS Hemoglobin Auto test strip (U) [Mass/Vol] Negative Normal Negativemg/dL [facility] UA Aut o SS Ketones Auto test strip Ql (U) Negative Normal Negativemg/dL FT UA Auto SS Leukocyte esterase Auto test strip Ql (U) 25 Shaylee/uL Shaylee/uL Normal NegativeLeu/uL [facility] UA Auto SS Mucus Auto Ql (U) Negative Normal Negativegr aded/ LPF FT UA Auto SS Nitrite Auto test strip Ql (U) Negative Normal Negativemg/dL [facility] UA Auto SS pH (U) 6.5 *NA* (06/11/24 10:51 AM) Invalid Interpretation Code 5.0 - 9.0 [facility] UA Auto SS Protein Ql (U) Negative Normal Negativemg/dL [facility] UA Auto SS RBC Ql (U) 0-3 graded/HPF Normal 0-3graded/HPF [facility] UA Auto SS Specific gravity (U) [Rel density] 1.014 *NA* (06/11/24 10:51 AM) Invalid Interpretation Code 1.005 - 1.030 [facility] UA Auto SS Urobilinogen (U) [Mass/Vol] Negative Normal Negativemg/dL [facility] UA Auto SS WBC Auto (Urine sed) [#/Area] 6-15 graded/HPF Invalid Interpretation Code 0-5graded/HPF [facility] UA Auto SS URINALYSISOrdered By: Toan Santo on 06-11-2024 UA Spec Desc Clean Catch (06/11/24 10:51 AM) Normal [facility] UA Auto SS Work Phone: XR Abdomen [...] na DAP = na Normal [facility] ED Clinical Summaryon 2023 ED Clinical Summary ED Clinical Summary [place] [id number] ED Clinical Summary Person Information Name: SHERIE RIZVI He/[facility] Age: 23 Years : 2000 Sex: Female Language: Spanish PCP: Jenn Urban MD Marital Status: Single [...] 05/29/2024 03:05:04 05/29/2024 03:05:04 05/29/2024 03:05:04 ADDRESS: [address] [id number] [facility] DOC NOTES: MEDICAL INFORMATION: Prescriptions Given: Medications [...] Follow up: With: Address: When: Jenn Urban [address] [place] [address], [address] [place] [address] [employer] (1) In 3 days DIAGNOSIS: Otitis externa of both ears Normal [facility] ED Note-Physicianon 05-29-20 ED Note-Physician ED [...] and Complexity of Problems Differential Diagnosis: [] [facility] Data External documents reviewed: N/A My EKG [...] way into the ear canal. She continue vzzp-wyu-gyszotr pain medications and follow-up with her primary [...] Information Jenn Urban In 3 days [address] [place], [place] [address] [employer] (1) Additional Instructions: Patient Education Otitis Externa [...] available. Diagnostic Results No qualifying data available. [facility] Comment on above: Result Comment: Elec tronically Signed By: Jose Wilkinson DO\.br\Date and Time Signed: 05/29/24 02:44 EDT ED Patient Summaryon 024 ED Patient Summary ED Patient Summary [address] [address] Patient Discharge Instructions Person Information Name: SHERIE RIZVI Age: 23 Years Arrival Date: 05/29/2024 01:47:05 Discharge Diagnosis: Otitis externa of both ears Primary Care Physician: Wilmar PIERCE, Jenn Mcnamara Provider Information Primary Provider: Jose Wilkinson DO Advanced Production Hardener:None The exam and treatment you received in the Emergency Department were for an urgent problem and are not intended as complete care. It is important that you follow up with a doctor, nurse practitioner, or physician?s child and youth program assistant for ongoing care. If your symptoms [...] Follow-up Instructions: With: Address: When: Jenn Urban [address] [place] [address]., [address] [place] [address] Business (1) In 3 days In the event that this physician does not participate in your insurance network, please consult with your insurance company to find a nearby participating provider. Patient Education Materials: Otitis Externa A MESSAGE TO ALL PATIENTS REGARDING OPIOIDS PRESCRIPTION OPIOIDS: WHAT YOU NEED TO KNOW Prescription opioids can be used to help relieve mswyzxml-dd-akxsqu pain and are often prescribed following a [...] be struggling with addiction, tell your health care team coordinator scheduler and ask for guidance or call [facility]?S National Helpline at [phone]. don Shine (more content not included)... Normal [facility] Ambulatory Visit Summaryon 0 05-27-2024 Ambulatory [...] ears Duration: 5 Days Pickup at [facility]/pharmacy #6109 New ciprofloxacin-dexameth asone otic (Ciprodex 0.3%-0.1% Susp-Otic) 4 Drops Otic 2 times a day Otitis media of left ear Otitis externa of both ears Duration: 7 Days BOTH ears shake well before using wash hands before applying Pickup at [facility]/pharmacy #6178 Unchanged clonidine (cloNIDine 0.2 mg Tab) 2 Tablets By Mouth Once a day (at bedtime) Unchanged drospirenone-ethinyl estradiol (Vestura 3 mg-0.02 mg oral tablet) Unchanged methylphenidate (methylphenidate 54 mg/ 24 hr oral tablet, extended release) 1 Tablets By Mouth Once a day (in the morning) Unchanged sertraline (sertraline 50 mg Tab) 1 Tablets By Mouth Every day Pharmacy Information [facility]/pharmacy #[id number]: [address] [place], [place] [id number] [phone] Allergies No Known Allergies Problems Ongoing - [...] choosing us for your care. Normal [facility]/Clini c Noteon 05-27-2024 Family [...] with voice recognition software. Occasional wrong-word or ?hnbec-d-kbla? substitutions may have occurred due to the inherent limitations of voice recognition software. 23-year-old female presents with complaint of possible bilateral ear infection. Patient states she already had some ear discomfort but was swimming in [facility] over the weekend and noticed increased pain. [...] # 10 tab(s), Refills(s) 0, Pharmacy: [facility]/pharmacy #[id number], 158, cm, 05/27/24 13:27:00 EDT, [...] # 10 tab(s), Refills(s) 0, Pharmacy: [facility]/pharmacy #[id number], 158, cm, 05/27/24 13:27:00 EDT, Height/Length Dosing, 64.8, kg, 05/27/24 13:27:00 EDT, Weight Dosing ciprofloxacin-dexameth asone otic, 4 drop(s), Otic, BID for 7 day(s), 7.5 mL, Refill(s) 0, BOTH ears shake well before using wash hands before applying, [facility]pharmacy #[id number], 158, cm, 05/27/24 13:27:00 EDT, Height/Length [...] (more content not included)... Normal [facility] Comment on above: Result Comment: Elec tronically Signed By: Lizet Goff\.br\Date and Time Signed: 05/27/24 13:57 EDT [facility] Patient Letter [facility] [address], [place] [phone] May 27, 2024 SHERIE RIZVI [address] [place] [address] : 2000 Please excuse SHERIE RIZVI from work . Date and/or Time of Absence: From: 05/27/24 To: 05/27/24 May return to work on: 05/28/24 Restrictions: None Comments: Please excuse due to an acute illness. Provider Signature: SHELLI Chatterjee Nurse Practitioner [facility] [address] [place] [place] [address] [facility] NURSING PROGon 04-01-2024 NURSING PROG HNO ID: [id number] Author: FABIANA GUEVARA RN Service: ? Author Type: Registered Nurse Type: Nursing Progress Note Filed: 04/01/2024 10:37 Note Text: GI Pre-Procedure Spoke with patient: Left message- Attempted to reach the patient at the contact number that they provided [phone] (home) . Unable to speak with patient so without identifying the patient the following information was left on their voice mail: Date of procedure, location and report time Prep instructions A message was left informing the patient/patient ambulatory service representative they must have a responsible adult [...] Number to call with questions or concerns [phone] Number to call to cancel their procedure [phone] Fabiana Guevara RN [facility] Allison 02-13-2024 TAMEKA Telephone ([facility]) BELKYSSHERIE ([id number]) 4 F Date Time Provider Department 02/13/24 [...] calling: self Call patient at: on cell [phone] (home) [phone] (cell) Was an appointment scheduled: No Closing statement: Symptom Call: Thank you for calling [facility], your call is very important. A nurse [...] Date Reviewed: 10/23/2023 Reviewed by: Kim Bourne, RN - Fully Assessed Reason for Visit: [...] Status:Closed by INES WATTS on 02/16/24 Normal [facility] Consent for Treatmenton 12-03 Consent for Treatment [id number] Normal [facility] RAD - MISCon 12-19-2023 RAD - MISC [id number]#[id number] 0TIFF Normal [facility] RAD - MRI Screening Formon 0 12-19-2023 RAD - MRI Screening Form [id number]#1.0 0TIFF Normal [facility] Insurance Correspondenceon 0 12-11-2023 Insurance Correspondence [id number]#[id number] 0TIFF Normal [facility] General Surgery Office/Clini c Noteon 12-04-2023 General Surgery Office/Clinic Note 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 Substitutions may have occurred voice recognition and artificial intelligence software. Documentation services were performed after patient or guardian consented to allow [employer] to record this visit. GENARO cryptographic center specialist and provider reviewed before signing. GENARO: [...] (more content not included)... Normal [facility] Comment on above: Result Comment: Elec tronically Signed By: Pan PIERCE, Luís Briggs\.br\Date and Time Signed: 12/04/23 08:32 EDT\.br\Electronically Co-Signed By: Freda Don\.br\Date and Time Co-Signed: 12/01/23 09:58 EDT Ambulatory Visit Summaryon 0 12-01-2023 Ambulatory Visit Summary SHERIE RIZVI :2000 MRN:[id number] Visit Date:12/01/2023 Ambulatory Visit Instructions Your Diagnosis [...] breast cancer in female Normal [facility] Physician Referralon 024 Physician Referral [id number]#1.0 0TIFF [facility] CNCOon 10-27-2023 CNCO Letter Text Normal [facility] ANES POSTPROC EVALon 024 ANES POSTPROC EVAL HNO ID: [id number] Author: MARY JANE STEVEN MD Service: ? [...] Sherie Rizvi DATE: October 23, 2023 TIME: 3:25 PM CSN: [id number] Normal [facility] ANES PRE-OPon 10-23-2023 ANES PRE-OP HNO ID: [id number] Author: MARY JANE STEVEN MD Service: ? Author Type: Anesthesiologist Type: Anesthesia Preprocedure Evaluation Filed: 10/23/2023 12:29 Note Text: ANESTHESIOLOGY DAY OF SURGERY NOTE : 2000 Procedure Information Anesthesia Start Date/Time: 10/23/23 1227 Scheduled providers: Gayle Arambula MD; Mago Urban APRN.ORNAMENTAL IRONWORKING SUPERVISOR; Mary Jane Steven MD Procedures: COLONOSCOPY DIAGNOSTIC [...] October 23, 2023 TIME: 12:28 PM CSN: [id number] Normal [facility] Colonoscopyon 10-23-2023 Colonoscopy Q3 Patient Name: Sherie Rizvi Procedure Date: 10/23/2023 12:16 PM Date of : 2000 Admit Type: Outpatient Age: 23 Gender: Female Note Status: Finalized Attending MD: Gayle Arambula MD, [id number] Procedure: Colonoscopy Indications: Generalized abdominal pain Providers: [...] screening purposes. Procedure Code(s): --- Professional --- 36861 Diagnosis Code(s): --- Professional --- R10.84 CPT copyright 2020 [employer]. All rights reserved. Attending Participation: I personally performed the entire procedure. Scope In: 12:46:07 PM Scope Out: 12:48:28 PM MD Gayle Sher MD 10/23/2023 12:54:37 PM This report has been signed electronically by Gayle Arambula MD Number of Addenda: 0 Note Initiated On: 10/23/2023 12:16 PM [facility] EGD Study observation Narrat iveon 10-23-2023 [facility] Flexible sigmoidoscopy study on 10-23-2023 [facility] NURSING PROGon 10-23-2023 NURSING PROG HNO ID: [id number] Author: GUNJAN REID RN Service: Nursing Author [...] Electronically Signed By: Gunjan Reid RN Normal [facility] NURSING PROG HNO ID: [id number] Author: ELIZA ACOSTA RN Service: ? Author [...] Eliza Acosta RN In Department: GASTROENTEROLOGY Normal [facility] SURGICAL PATHOLOGYon 024 CASE REPORT Normal [facility] Comment on above: Order Comment: Speci men Type: TISSUE SPECIMENOrdering Facility: [facility] Address: [address] [place] [address] Result Comment: Surg ical Pathology Report Case: [id number] Authorizing Provider: Gayle Arambula MD Collected: 10/23/2023 12:37 PM Ordering Location: Gastroenterology Received: 10/23/2023 04:29 PM Pathologist: Carlos Schuster MD Specimens: A) - DUODENUM BIOPSY, Duodenum biopsy r/o celiac disease B) - STOMACH BIOPSY, stomach biopsy r/o H. Pylori C) - ESOPHAGUS LOWER BIOPSY, Lower esophagus biopsy r/o EOE D) - ESOPHAGUS MID BIOPSY, Mid esophagus biopsy r/o EOE Performed By: #### S ####[facility] LABCLIA [id number] [place] [address] [place] DIAGNOSIS COMMENT Normal [facility] Comment on above: Order Comment: Mariia kaplan Type: TISSUE SPECIMENOrdering Facility: [facility] Address: [address] [place] [address] Result Comment: A. T he finding of [...] been determined by the performing laboratory within [facility]???s Syed Guzman Pathology and Laboratory Medicine [place] ([facility], [facility], [facility], [facility], [facility], [facility], or [facility]) in a manner consistent with CLIA requirements. One or more of these tests have not been cleared or approved by the FDA. [facility] is regulated under CLIA as qualified to perform high-complexity testing. These tests are used for clinical purposes. They should not be regarded as investigational or for research. Positive and negative controls stain appropriately. Performed By: #### S ####[facility] LABCLIA [id number] [address] FINAL DIAGNOSIS Normal [facility] Comment on above: Order Comment: Speci men Type: TISSUE SPECIMENOrdering Facility: [facility] Address: [address] [place] [address] Result Comment: A. D uodenum, biopsy: - Duodenal mucosa with patchy intraepithelial lymphocytosis. - No evidence of villous blunting. - See comment. B. Stomach, biopsy: - Chronic active antral gastritis. - Immunohistochemical stain for Helicobacter pylori is negative. C, D. Esophagus, lower and mid, biopsy: - Squamous epithelium with no significant diagnostic alteration. - No evidence of intraepithelial eosinophils. Performed By: #### S ####[facility] LABCLIA [id number] [address] FINAL PERFORMING LAB Normal [facility] Comment on above: Order Comment: Speci men Type: TISSUE SPECIMENOrdering Facility: [facility] Address: [address] [place] [address] Result Comment: Diag nostic interpretation performed at [facility], [address] [place] [address] CLIA# [id number] Financial Reporting Specialist: Patrick Ron M.D. Performed By: #### S ####[facility] LABCLIA [id number] [address] STATES [place] GROSS DESCRIPTION Normal [facility] Comment on above: Order Comment: Speci men Type: TISSUE SPECIMENOrdering Facility: [facility] Address: [address] [place] [address] Result Comment: A. D UODENUM BIOPSY Received in formalin are multiple pieces of santos, soft tissue aggregating to 1.0 x 0.3 x 0.2 cm. Totally submitted in one cassette. B. STOMACH BIOPSY Received in formalin are multiple pieces of santos, soft tissue aggregating to 0.8 x 0.3 x 0.2 cm. Totally submitted in one cassette. C. ESOPHAGUS LOWER BIOPSY Received in formalin are multiple pieces of santos-white, soft tissue aggregating to 0.8 x 0.2 x 0.1 cm. Totally submitted in one cassette. D. ESOPHAGUS MID BIOPSY Received in formalin are multiple pieces of santos-white, soft tissue aggregating to 1.4 x 0.3 x 0.2 cm. Totally submitted in one cassette. Gross examination performed at [facility], [address] [place] [address] October 23, 2023 8:01 PM Performed By: #### S ####[facility] LABCLIA [id number] [address] Allison 10-16-2023 CNPN Telephone ([facility]) SHERIE RIZVI ([id number]) [birth year] F Date Time Provider Department 10/16/23 JUAN LUIS ONEIL [facility] During your visit today, we recorded the following information about you: Juan Luis Oneil, RN 10/16/2023 12:10 PM Signed Attempted to reach the patient at the contact number that they provided [phone] (home) . Unable to speak with patient so without identifying the patient the following information was left on their voice mail: Date of procedure, location and report time Prep instructions A message was left informing the patient/patient ambulatory service representative they must have a responsible adult [...] Number to call with questions or concerns [phone] Number to call to cancel their procedure [phone] Juan Luis Oneil RN Allergies As of [...] by JUAN LUIS ONEIL on 10/16/23 Normal [facility] TSH SerPl-aCncon 09-20-2023 TSH Qn 1.880 m[IU]/L Normal 0.270-4.200 [facility] Comment on above: Order Comment: Speci men Type: BLOOD SPECIMENOrdering Facility: [facility] Address: [address] [place] [address] Result Comment: If t he patient is , TSH reference range varies by gestational period: First Trimester (weeks 9-12): 0.180-2.990 mIU/L Second Trimester: 0.110-3.980 mIU/L Third Trimester: 0.480-4.710 mIU/L Sivakumar Arnett et al. A Practical Approach for the Verifications and Determination of Site- and Trimester-Specific Reference Intervals for Thyroid Function tests in . Thyroid, 2019:29:3:412-420. Negrito Sosa, et al. 2017 Guidelines of the [place] [employer] for the Diagnosis and Management of Thyroid Disease during and the . Thyroid, 2017:27:3:315-389. Performed By: #### 3 016-3 ####[facility] LABCLIA [id number] [facility] [id number] [place], [place] [id number] [facility] CNOVon 08-22-2023 CNOV Office Visit (GENBMI ) SHERIE RIZVI ([id number]) 4 F Date Time Provider Department 08/22/23 4:00 PM LEVI JOHNSON GENAGUSTINAI During your visit today, we recorded the following information about you: Pulse Blood pressure Weight Height 94/minute 142/88 57.5 kg 1.575 m Levi Johnson MD 08/23/2023 3:50 PM Signed GENERAL SURGERY NEW PATIENT CONSULTATION HISTORY AND PHYSICAL Date: August 22, 2023 Time: 4:18 PM Name: Sherie Rivzi Ms. Rizvi is here today for my [...] [R10.84] Order(s):CONSULT TO GASTROENTEROLOGY [9010] Order #: [id number]: 1 FUTURE Prescriptions as of 08/23/2023 - Drospirenone-Ethinyl Estradiol (YOLIS, 28,) 3-0.02 mg per tablet Take 1 tablet by mouth once daily. - LINZESS 145 mcg capsule - l (more content not included)... Normal [facility] C. trachomatis+N. gonorrhoea e DNA JERMAINE+probe Ql (Unsp spec)on 08-11-2023 C. trachomatis rRNA JERMAINE+probe Ql (Unsp spec) Negative Normal Negative for Chlamydia trachomatis by amplificaton [facility] Comment on above: Order Comment: Speci men Type: SWABOrdering Facility: [facility] Address: [address] [place] [address] Performed By: #### 3 6902-5 ####[facility] LABCLIA [id number] [address] [place] N. gonorrhoeae rRNA JERMAINE+probe Ql (Unsp spec) Negative Normal Negative for Neisseria gonorrhoeae by amplification [facility] Comment on above: Order Comment: Speci men Type: SWABOrdering Facility: [facility] Address: [address] [place] [address] Performed By: #### 3 6902-5 ####[facility] LABCLIA [id number] [address] [place] CNOVon 08-11-2023 CNOV Office Visit (OBGMEM ) SHERIE RIZVI ([id number]) 4 F Date Time Provider Department 08/11/23 1:30 PM LEONIE TIWARI OBGMEM During your visit today, we recorded the [...] OB History No obstetric history on file. Spray Drier History LMP: Drug Induced Amenorrhea Age at Menarche: Age at First : Age at Menopause: Spray Drier History Comments: Sexual Activity: No sexual activity [...] external genitalia normal, normal Bartholin's glands, urethra, Quinton's glands, no vulvar lesions, no cervical lesions, [...] 1 ta (more content not included)... Normal [facility] PAP TESTon 08-11-2023 ADEQUACY Normal [facility] Comment on above: Order Comment: Speci men Type: FLUID SPECIMENOrdering Facility: [facility] Address: [address] [facility] [place] [address] Result Comment: Sati sfactory for interpretation Excess blood Performed By: #### L [id number] ####[facility] LABCLIA [id number] [place] [facility] [id number] [address] [place] CASE REPORT Normal [facility] Comment on above: Order Comment: Speci men Type: FLUID SPECIMENOrdering Facility: [facility] Address: [address] [place] [address] Result Comment: Gyne cologic Cytology Report Case: [id number] Authorizing Provider: Leonie Tiwari MD Collected: 08/11/2023 03:24 PM Ordering Location: Obstetrics/Gynecology Received: 08/14/2023 07:54 AM First Screen: Abhishek Lee Tech Specimen: Pap Test, ThinPrep, Cervix Performed By: #### L [id number] ####[facility] LABCLIA [id number] [place] [address] [place] CLINICAL HISTORY, CYTOLOGY, AUTOMOTIVE PARTS SALESPERSON Routine Exam Normal [facility] Comment on above: Order Comment: Speci men Type: FLUID SPECIMENOrdering Facility: [facility] Address: [address] [place] [address] Performed By: #### L [id number] ####[facility] LABCLIA [id number] [place] [address] [place] FINAL PERFORMING LAB Normal [facility] Comment on above: Order Comment: Speci men Type: FLUID SPECIMENOrdering Facility: [facility] Address: [address] [place] [address] Result Comment: Tech nical component, facility maintenance technician screening performed at [facility], [facility] [place] [address] CLIA# [id number] Diagnostic interpretation performed at [facility], [address] [id number] CLIA# [id number] Financial Reporting Specialist: Patrick Ron M.D. Performed By: #### L [id number] ####[facility] LABCLIA [id number] [place] [address] [place] GROSS DESCRIPTION A. Cervix Normal [facility] Comment on above: Order Comment: Speci men Type: FLUID SPECIMENOrdering Facility: [facility] Address: [address] [place] [address] Result Comment: Glac ial Acetic Acid added. Performed By: #### L [id number] ####[facility] LABCLIA [id number] [place] [address] [place] HPV REFLEX HPV if Atypical Normal [facility] Comment on above: Order Comment: Speci men Type: FLUID SPECIMENOrdering Facility: [facility] Address: [address] [place] [address] Performed By: #### L [id number] ####[facility] LABCLIA [id number] [place] [address] [place] INTERPRETATION, CYTOLOGY, AUTOMOTIVE PARTS SALESPERSON Normal [facility] Comment on above: Order Comment: Speci men Type: FLUID SPECIMENOrdering Facility: [facility] Address: [address] [place] [address] Result Comment: Nega tive for intraepithelial lesion or malignancy. Performed By: #### L [id number] ####[facility] LABCLIA [id number] [place] [address] [place] LMP 08/09/2023 Normal [facility] Comment on above: Order Comment: Speci men Type: FLUID SPECIMENOrdering Facility: [facility] Address: [address] [place] [address] Performed By: #### L [id number] ####[facility] LABCLIA [id number] [place] [id number] [place] PAP DISCLAIMER COMMENT The Pap Smear is a screening test for cervical cancer. False negative results occur with all screening tests, emphasizing the need for rescreening at recommended intervals, and clinical correlation. Normal [facility] Comment on above: Order Comment: Speci men Type: FLUID SPECIMENOrdering Facility: [facility] Address: [address] [place] [address] Performed By: #### L [id number] ####[facility] LABCLIA [id number] [place] [id number] [place] STATES [place] PAP AIR SAMPLING AND MONITORING COMMENT This specimen has be en analyzed by the ThinPrep Imaging System, an automated imaging and review system, which assists the laboratory in evaluating cells on ThinPrep Pap tests. Following automated imaging, selected lamas from every slide are reviewed by a facility maintenance technician. Normal [facility] Comment on above: Order Comment: Speci men Type: FLUID SPECIMENOrdering Facility: [facility] Address: [address] [place] [address] Performed By: #### L [id number] ####[facility] LABCLIA [id number] [address] MICRO OTHER TESTSOrdered By: Yessy Guerrero on 07-14-2023 Influenzae A Ag Negative (07/14/23 5:47 AM) Normal Negative [facility] Man Sero Influenzae B Ag Negative 1 (07/14/23 5:47 AM) Normal Negative [facility] Sero Comment on above: Interpretive Data: [...] NEG Ctl Pass (07/14/23 5:47 AM) Normal [facility] Man Sero Rapid COV Int POS Ctl Pass (07/14/23 5:47 AM) Normal [facility] Sero SARS-CoV+SARS-CoV-2 (COVID-19) Ag IA.rapid Ql (Resp) Detected 2 *ABN* (07/14/23 5:47 AM) Invalid Interpretation Code Not Detected [facility] Sero Comment on above: Interpretive Data: T he Dumbstruck Veritor System for Rapid Detection of SARS-CoV-2 [...] (S) Negative (07/14/23 5:46 AM) Normal Negative [facility] Man Sero CHEMISTRYOrdered By: SYSTEM SYSTEM on 04-12-2023 Anion gap [Moles/Vol] 13 mmol/L Normal 6 - 16 mEq/L [facility] Remisol Calcium [Mass/Vol] 8.8 mg/dL Low 8.9 - 11. 1 mg/dL [facility] Remisol Chloride [Moles/Vol] 106 mmol/L Normal 101 - 1 11 mmol/L [facility] Remisol CO2 [Moles/Vol] 24 mmol/L Normal 21 - 31 mmol/L [facility] Remisol Creatinine [Mass/Vol] 0.9 mg/dL Normal 0.5 - 1.3 mg/dL [facility] Remisol GFR/1.73 sq M.predicted among non-blacks MDRD (S/P/Bld) [Vol rate/Area] 94 mL/min/1.73 m2 Normal >=59mL/min/1.73 m2 [facility] Chem S Glucose [Mass/Vol] 109 mg/dL Normal [...] 9.5 E9/L Normal 4.0 - 11.0 E9/L [facility] HemeAutoSS SEROLOGYOrdered By: Shadi mccord on 04-12-2023 HCG.beta subunit (U) [Moles/Vol] Negative Normal [facility] Man Sero URINALYSISOrdered By: Shadi Pack on [...] AM) Normal Negative [facility] UA Auto SS Norton.plasma/Lithi um.RBC (Bld) [Mass ratio] 4-20 /HPF Normal [...] Desc Clean Catch (04/12/23 2:05 AM) Normal [facility] UA Auto SS Urobilinogen Qn (U) 0.6712097 {Angelic'U}/dL Normal 0.0 - 1.0 EU/dL FT UA Auto SS WBC Auto Ql (U) [...] 11 mmol/L Normal 6 - 16 mEq/L FT Remisol AST [Catalytic activity/Vol] 21 [iU]/d Normal 5 - 43 Int._Unit/L [facility] Remisol Bilirubin [Mass/Vol] 0.8 mg/dL Normal 0.0 - 1.1 mg/dL [facility] Remisol Bilirubin.direct [Mass/Vol] 0.2 mg/dL Normal 0.1 - 0.4 mg/dL [facility] Remisol Bilirubin.indirect [Mass or moles/Vol] 0.6 mg/dL Normal 0.1 - 0.9 mg/dL [facility] Remisol Calcium [Mass/Vol] 9.1 mg/dL Normal 8.9 - 11. 1 mg/dL FT Remisol Chloride [Moles/Vol] 105 mmol/L Normal 101 - 1 11 mmol/L FT Remisol CO2 [Moles/Vol] 26 mmol/L Normal 21 - 31 mmol/L [facility] Remisol Creatinine [Mass/Vol] 0.8 mg/dL Normal 0.5 - 1.3 mg/dL FT Remisol GFR/1.73 sq M.predicted among non-blacks MDRD (S/P/Bld) [Vol rate/Area] 108 mL/min/1.73 m2 Normal >=59mL/min/1.73 m2 [facility] Chem S Globulin (S) [Mass/Vol] 3.3 g/dL Normal 1.4 - 4.0 gm/dL FT Remisol Glucose [Mass/Vol] 99 mg/dL Normal 55 - 199 mg/dL [facility]isol Lipase [Catalytic activity/Vol] 30 U/L Normal 13 - 58 unit/L [facility] Remisol Potassium [Moles/Vol] 3.9 mmol/L Normal 3.5 - 5.3 mmol/L [facility] Remisol Protein [Mass/Vol] 7.0 g/dL Normal 6.0 - 7.8 gm/dL F [facility] Remisol Sodium [Moles/Vol] 138 mmol/L Normal 135 - 145 mmol/L FT Remisol Urea nitrogen [Mass/Vol] 8 mg/dL Normal 5 - 21 mg/dL FT Remisol Urea nitrogen/Creatinine [Mass ratio] 10 mg/mg [...] hCG Ql Negative (03/19/23 7:08 AM) Normal [facility] Man Sero SEROLOGYOrdered By: Eddi null on 11-11-2022 HCG.beta subunit (U) [Moles/Vol] Negative Normal [facility] Man Sero URINALYSISOrdered By: Eddi snowden on [...] PM) Normal Negative [facility] UA Auto SS Norton.plasma/Lithi um.RBC (Bld) [Mass ratio] 0-3 /HPF Normal [...] PM) Invalid Interpretation Code 1.005 - 1.030 FT UA Auto SS UA Spec Desc Clean Catch (11/11/22 4:12 PM) Normal [facility] UA Auto SS Urobilinogen Qn (U) 0.7115109 {Angelic'U}/dL Normal 0.0 - 1.0 EU/dL FT UA Auto SS WBC Auto Ql (U) Negative (11/11/22 4:12 PM) Normal Negative FT UA Auto SS WBC LM.HPF (Urine sed) [#/Area] 6-15 /HPF Invalid Interpretation Code 0-5/HPF [facility] UA Auto SS CARDIAC MARTELL ADMITon 023 CK [Catalytic activity/Vol] 88 U/L Normal 26-192 [facility] Comment on above: Performed By: #### C KATRIN DEVLIN #### [facility] [address] [place] [address] [address] Diandra Mays CK.MB [Mass/Vol] ng/mL Normal <=3.60 [facility] Comment on above: Performed By: #### C KATRIN DEVLIN #### [facility] [address] [place] [address] [address] Diandra Mays HSTROP <4.0 Normal 4.0-51.3 [facility] Comment on above: Result Comment: CUT- OFF POINTS HAVE BEEN ESTABLISHED BASED ON THE FOURTH UNIVERSAL DEFINITIONS OF MYOCARDIAL INFARCTION. THE UPPER REFERENCE LIMIT (URL) OF TROPONIN, DEFINED THE 99TH PERCENTILE OF cTnI DISTRIBUTION IN A REFERENCE POPULATION, HAS BEEN CONFIRMED THE DECISION THRESHOLD FOR [place] DIAGNOSIS. Performed By: #### C KATRIN DELVIN #### [facility] [address] [place] [address] Dr. Diandra Mays ASTRID 21 ng/mL Normal 9-82 [facility] Comment on above: Performed By: #### C HATTIE DEVLINDM #### [facility] [address] [place] [address] Dr. Diandra Mays CBC AUTO DIFFon 10-05-2022 BASO # 0.1 103/ul Normal 0.0-0.1 [facility] Comment on above: Performed By: #### C BC #### [facility] [address] [place] [address] Dr. Diandra Mays Basophils/100 WBC (Bld) 0.6 % Normal 0.2-2.0 [facility] Comment on above: Performed By: #### C BC #### [facility] [address] [place] [address] Dr. Diandra Mays EO # 0.2 103/ul Normal 0.0-0.7 [facility] Comment on above: Performed By: #### C BC #### [facility] [address] [place] [address] Dr. Diandra Mays Eosinophils/100 WBC (Bld) 1.8 % Normal 0.9-7.0 [facility] Comment on above: Performed By: #### C BC #### [facility] [address] [place] [address] Dr. Diandra Mays Erythrocyte distribution width (RBC) [Ratio] 14.4 % Normal 11.0-15.0 [facility] Comment on above: Performed By: #### C BC #### [facility] [address] [place] [address] Dr. Diandra Mays Hematocrit (Bld) [Volume fraction] 45.3 % Normal 36.0-48.0 [facility] Comment on above: Performed By: #### C BC #### [facility] [address] [place] [address] Dr. Diandra Mays Hemoglobin (Bld) [Mass/Vol] 14.8 g/dL Normal 12.0-16.0 [facility] Comment on above: Performed By: #### C BC #### [facility] [address] [place] [address] Dr. Diandra Mays IG # 0.03 10e3/ul Normal 0.00-0.03 [facility] Comment on above: Performed By: #### C BC #### [facility] [address] [place] [address] Dr. Diandra Mays IG % 0.3 % Normal 0.0-0.5 [facility] Comment on above: Performed By: #### C BC #### [facility] [address] [place] [address] Dr. Diandra Mays LYMPH # 3.8 103/ul Normal 1.2-3.8 [facility] Comment on above: Performed By: #### C BC #### [facility] [address] [place] [address] Dr. Diandra Mays Lymphocytes/100 WBC (Bld) 33.8 % Normal 20.5-60.0 [facility] Comment on above: Performed By: #### C BC #### [facility] [address] [place] [address] Dr. Diandra Mays MANUAL DIFF REQ NO Normal [facility] Comment on above: Performed By: #### C BC #### [facility] [address] [place] [address] Dr. Diandra Mays MCH (RBC) [Entitic mass] 29.4 pg Normal 26.7-34.0 [facility] Comment on above: Performed By: #### C BC #### [facility] [address] [place] [address] Dr. Diandra Mays MCHC (RBC) [Mass/Vol] 32.7 g/dL Normal 29.9-35.2 [facility] Comment on above: Performed By: #### C BC #### [facility] [address] [place] [address] Dr. Diandra Mays MCV (RBC) [Entitic vol] 90.1 fL Normal 81.0-99.0 [facility] Comment on above: Performed By: #### C BC #### [facility] [address] [address] [address] Diandra Masy MONO # 0.9 103/ul Critically high 0.3-0.8 [facility] Comment on above: Performed By: #### C BC #### [facility] [address] [address] [address] Diandra Mays Monocytes/100 WBC (Bld) 8.1 % Normal 1.7-12.0 [facility] Comment on above: Performed By: #### C BC #### [facility] [address] [place] [address] Dr. Diandra Mays NEUT # 6.2 103/ul Normal 1.4-6.5 [facility] Comment on above: Performed By: #### C BC #### [facility] [address] [place] [address] Dr. Diandra Mays Neutrophils/100 WBC (Bld) 55.4 % Normal 43.0-75.0 [facility] Comment on above: Performed By: #### C BC #### [facility] [address] [place] [address] Dr. Diandra Mays Platelet mean volume (Bld) [Entitic vol] 10.1 fL Normal 9.5-13.5 [facility] Comment on above: Performed By: #### C BC #### [facility] [address] [place] [address] Dr. Diandra Mays PLT 331 103/ul Normal 150-450 [facility] Comment on above: Performed By: #### C BC #### [facility] [address] [place] [address] Dr. Diandra Mays RBC 5.03 106/ul Normal 4.20-5.40 [facility] Comment on above: Performed By: #### C BC #### [facility] [address] [place] [address] Dr. Diandra Mays WBC 11.1 103/ul Critically high 4.0-11.0 [facility] Comment on above: Performed By: #### C BC #### [facility] [address] [place] [address] Dr. Diandra Mays Covid-19 PCR (CVDTB)on SARS-CoV-2 (COVID-19) RNA JERMAINE+probe Ql (Unsp spec) Not detected Normal NOT DETECTED [facility] Comment on above: Result Comment: This test is not yet approved or cleared by the [place] FDA. When there are no FDA-approved or cleared tests available, and other criteria are met, FDA can make tests available under an emergency access mechanism called an Emergency Use Authorization (EUA). The EUA for this test is supported by the Client Hr Manager of Health and Human Service's (HHS's) declaration [...] SARS-CoV-2. Performed By: #### I NFLUAB #### [facility] [address] [place] [address] Dr. Diandra Mays ER URINE PROFILEon 3 Bilirubin Ql (U) Negative Normal NEGATIVE [facility] Comment on above: Performed By: #### P MICHAEL CANNON UMICRO #### [facility] [address] [place] [address] Dr. Diandra Mays Clarity (U) CLEAR Normal CLEAR [facility] Comment on above: Performed By: #### P MICHAEL CANNON UMICRO #### [facility] [address] [place] [address] Dr. Diandra Mays Color (U) YELLOW Normal YELLOW [facility] Comment on above: Performed By: #### P MICHAEL CANNON UMICRO #### [facility] [address] [place] [address] Dr. Diandra ROWELL A micrscopic examination will be performed if indicated. Normal [facility] Comment on above: Performed By: #### P REGU, ERUR, UMICRO #### [facility] [address] [address] [address] Diandra Mays Glucose Ql (U) Negative Normal NEGATIVE [facility] Comment on above: Performed By: #### P REGU, ERUR, UMICRO #### [facility] [address] [address] [address] Diandra Mays Hemoglobin Ql (U) LARGE Abnormal NEGATIVE [facility] Comment on above: Performed By: #### P REGU, ERUR, UMICRO #### [facility] [address] [address] [address] Diandra Mays Ketones Ql (U) Negative Normal NEGATIVE [facility] Comment on above: Performed By: #### P REGU, ERUR, UMICRO #### [facility] [address] [address] [address] Diandra Mays LEUKOCYTES Negative Normal NEGATIVE [facility] Comment on above: Performed By: #### P REGU, ERUR, UMICRO #### [facility] [address] [address] [address] Diandra Mays Nitrite Ql (U) Negative Normal NEGATIVE [facility] Comment on above: Performed By: #### P REGU, ERUR, UMICRO #### [facility] [address] [address] [address] Diandra Mays pH (U) 6.0 [pH] Normal 5-9 [facility] Comment on above: Performed By: #### P REGU, ERUR, UMICRO #### [facility] [address] [address] [address] Diandra Mays SPEC GRAVITY >=1.030 Abnormal 1.005-<=1.025 [facility] Comment on above: Performed By: #### P REGU, ERUR, UMICRO #### [facility] [address] [address] [address] Diandra Mays UA PROTEIN Negative Normal NEGATIVE/ TRACE [facility] Comment on above: Performed By: #### P REGIRVING WellsR UMICRO #### [facility] [address] [place] [address] Dr. Diandra Mays UR MICRO IND INDICATED Normal [facility] Comment on above: Performed By: #### P REGIRVING WellsR, UMICRO #### [facility] [address] [place] [address] Dr. Diandra Mays Urobilinogen Qn (U) 1.0 {Angelic'U}/dL Normal 0.2 - 1. 0 [facility] Comment on above: Performed By: #### P MICHAEL CANNON UMICRO #### [facility] [address] [place] [address] Dr. Diandra Mays INFLUENZA A AND B AGon 10-05 INFLUENZA A AG Negative Normal NEGATIVE SEE COMMENT [facility] Comment on above: Performed By: #### I NFLUAB #### [facility] [address] [place] [address] Dr. Diandra Mays INFLUENZA B AG Negative Normal NEGATIVE SEE COMMENT [facility] Comment on above: Performed By: #### I NFLUAB #### [facility] [address] [place] [address] Dr. Diandra Mays URon 10-05-2022 , QUAL Negative Normal NEGATIVE [facility] Comment on above: Performed By: #### P MICHAEL CANNON UMICRO #### [facility] [address] [place] [address] Dr. Diandra Mays PROF 14(COMP METB)on 023 Albumin [Mass/Vol] 3.9 g/dL Normal 3.4-5.0 [facility] Comment on above: Performed By: #### C KATRIN DEVLIN #### [facility] [address] [place] [address] Dr. Diandra Mays Albumin/Globulin [Mass ratio] 1.1 {ratio} Normal [facility] Comment on above: Performed By: #### C MP, CMADM #### [facility] [address] [address] [address] Diandra Mays ALP [Catalytic activity/Vol] 86 U/L Normal 46-116 [facility] Comment on above: Performed By: #### C MP, CMADM #### [facility] [address] [address] [address] Diandra Mays ALT [Catalytic activity/Vol] 14 U/L Normal 14-59 [facility] Comment on above: Performed By: #### C MP, CMADM #### [facility] [address] [address] [address] Diandra Mays Anion gap [Moles/Vol] 13.1 mmol/L Normal [facility] Comment on above: Performed By: #### C CLAUS, CMADM #### [facility] [address] [address] [address] Diandra Mays AST [Catalytic activity/Vol] 18 U/L Normal 15-37 [facility] Comment on above: Performed By: #### C CLAUS, CMADM #### [facility] [address] [address] [address] Diandra Mays Bilirubin [Mass/Vol] 1.0 mg/dL Normal 0.2-1.0 [facility] Comment on above: Performed By: #### C CLAUS, CMADM #### [facility] [address] [address] [address] Diandra Mays Calcium [Mass/Vol] 9.1 mg/dL Normal 8.5-10.1 [facility] Comment on above: Performed By: #### C MP, CMADM #### [facility] [address] [address] [address] Diandra Mays Chloride [Moles/Vol] 103 mmol/L Normal 98-107 [facility] Comment on above: Performed By: #### C CLAUS, CMADM #### [facility] [address] [address] [address] Diandra Mays CO2 [Moles/Vol] 26.3 mmol/L Normal 21.0-32.0 [facility] Comment on above: Performed By: #### C CLAUS, CMADM #### [facility] [address] [address] [address] Diandra Mays Creatinine [Mass/Vol] 0.74 mg/dL Normal 0.55-1.02 [facility] Comment on above: Performed By: #### C MP, CMADM #### [facility] [address] [address] [address] Diandra Mays EGFR-AF SPANISH >60 Normal >=60 [facility] Comment on above: Performed By: #### C MP, CMADM #### [facility] [address] [address] [address] Diandra Mays EGFR-NON AF SPANISH >60 Normal >=60 [facility] Comment on above: Performed By: #### C CLAUS, CMADM #### [facility] [address] [address] [address] Diandra Mays Globulin (S) [Mass/Vol] 3.4 g/dL Normal [facility] Comment on above: Performed By: #### C CLAUS, CMADM #### [facility] [address] [address] [address] Diandra Mays Glucose [Mass/Vol] 91 mg/dL Normal 74-106 [facility] Comment on above: Performed By: #### C CLAUS, CMADM #### [facility] [address] [address] [address] Diandra Mays Potassium [Moles/Vol] 3.4 mmol/L Critically low 3.5-5.1 [facility] Comment on above: Performed By: #### C CLAUS, CMADM #### [facility] [address] [address] [address] Diandra Mays Protein [Mass/Vol] 7.3 g/dL Normal 6.4-8.2 [facility] Comment on above: Performed By: #### C CLAUS, CMADM #### [facility] [address] [address] [address] Diandra Mays Sodium [Moles/Vol] 139 mmol/L Normal 136-145 [facility] Comment on above: Performed By: #### C CLAUS, CMADM #### [facility] [address] [address] [address] Diandra Mays Urea nitrogen [Mass/Vol] 13.0 mg/dL Normal 7.0-18.0 [facility] Comment on above: Performed By: #### C MP, CMADM #### [facility] [address] [address] [address] Diandra Mays Urea nitrogen/Creatinine [Mass ratio] 17.6 mg/mg Normal [facility] Comment on above: Performed By: #### C MP, CMADM #### [facility] [address] [address] [address] Diandra Mays URINE MICROSCOPIC ONLYon BACTERIA NONE SEEN Normal NONE SEEN [facility] Comment on above: Performed By: #### P REGU, ERUR, UMICRO #### [facility] [address] [place] [address] Dr. Diandra Mays Bacteria identified Cx Nom (U) NOT INDICATED Normal [facility] Comment on above: Performed By: #### P REGU, ERUR, UMICRO #### [facility] [address] [address] [address] Diandra Mays CAST NONE SEEN Normal NONE SEEN [facility] Comment on above: Performed By: #### P REGU, ERUR, UMICRO #### [facility] [address] [address] [address] Diandra Mays Crystals LM Nom (Urine sed) NONE SEEN Normal NONE SEEN [facility] Comment on above: Performed By: #### P REGU, ERUR, UMICRO #### [facility] [address] [address] [address] Diandra Mays Epithelial cells LM Ql (Urine sed) FEW Abnormal NONE SEEN /RARE [facility] Comment on above: Performed By: #### P REGU, ERUR, UMICRO #### [facility] [address] [address] [address] Diandra Mays MUCOUS NONE SEEN Normal NONE SEEN [facility] Comment on above: Performed By: #### P REGU, ERUR, UMICRO #### [facility] [address] [address] [address] Diandra Mays RBC 20-50 Abnormal 0-2 [facility] Comment on above: Performed By: #### P MICHAEL CANNON UMICRO #### [facility] [address] [address] [address] Diandra Mays WBC 2-5 Abnormal NONE SEEN [facility] Comment on above: Performed By: #### P MICHAEL CANNON UMICRO #### [facility] [address] [address] [address] Diandra Mays STREPT SCREENon 08-14-2022 STREP SCREEN A Positive Abnormal NEGATIVE [facility] Comment on above: Performed By: #### S SCRN #### [facility] [address] [address] [address] Diandra Mays Covid-19 PCR (CVDTB)on SARS-CoV-2 (COVID-19) RNA JERMAINE+probe Ql (Unsp spec) Not detected Normal NOT DETECTED [facility] Comment on above: Result Comment: When diagnostic [...] for this test is supported by the [place] of Health and Human Service's declaration that [...] longer be used). Performed By: #### C VDTBH #### [facility] [address] [address] [address] Diandra Mays INFLUENZA A AND B AGon 08-08 INFLUBNEGH SEE BELOW Normal [facility] Comment on above: Result Comment: Nega tive for Flu B protein antigen. Infection due to Flu B cannot be ruled out. Flu B antigen in the sample may be below the detection limit of the test. Performed By: #### I NFLUAB #### [facility] [address] [address] [address] Diandra Mays INFLUENZA A AG Positive Abnormal NEGATIVE SEE COMMENT [facility] Comment on above: Performed By: #### I NFLUAB #### [facility] [address] [address] [address] Diandra Mays INFLUENZA B AG Negative Normal NEGATIVE SEE COMMENT [facility] Comment on above: Performed By: #### I NFLUAB #### [facility] [address] [address] [address] Diandra Mays INFLUPOSH SEE BELOW Normal [facility] Comment on above: Result Comment: NOTE : Live attenuated influenzae vaccine viruses can cause a positive result for a rapid influenza diagnostic test if administered up to 7 days prior to rapid testing. Performed By: #### I NFLUAB #### [facility] [address] [address] [address] Diandra Mays INTERNAL CONTROLS Within Normal Limits Normal Wi thin Normal Limits [facility] Comment on above: Performed By: #### I NFLUAB #### [facility] [address] [address] [address] Diandra Mays MICRO OTHER TESTSOrdered By: Rita Elena on 06-28-2022 S. pyogenes Ag IA.rapid Ql (Throat) Negative (06/28/22 6:21 PM) Normal Negative [facility] Vital Signs Date Time Vital Sign Value Performing Clinician Facility 11-26-2024 17:15-0400 Diastolic blood pressure 78 mm[Hg] Jenn Urban MD Work Phone: [facility] 11-26-2024 17:15-0400 Heart rate 76 /min Jenn Urban MD Work Phone: [facility] 11-26-2024 17:15-0400 Respiratory rate 16 /min Jenn Urban MD Work Phone: [facility] 11-26-2024 17:15-0400 SaO2% (BldA) [Mass fraction] 97 % Jenn Urban MD Work Phone: [facility] 11-26-2024 17:15-0400 Systolic blood pressure 113 mm[Hg] Jenn Urban MD Work Phone: [facility] 11-26-2024 16:25-0400 Body temperature 97.8 [degF] Jenn Urban MD Work Phone: [facility] 11-26-2024 16:02-0400 Inhaled oxygen flow rate 8 L/min Jenn Urban MD Work Phone: [facility] 11-26-2024 14:02-0400 Body height 157.48 cm Jenn Urban MD Work Phone: [facility] 11-26-2024 14:02-0400 Body weight 65.77 kg Jnen Urban MD Work Phone: [facility] 10-28-2024 09:00-0500 Diastolic blood pressure 82 mm[Hg] Rey Barrera [facility] 10-28-2024 09:00-0500 Heart rate 73 /min Rey Barrera [facility] 10-28-2024 09:00-0500 Mean blood pressure 92 mm[Hg] Rey Barrera [facility] 10-28-2024 09:00-0500 SaO2% (BldA) [Mass fraction] 97 % Rey Barrera [facility] 10-28-2024 09:00-0500 Systolic blood pressure 112 mm[Hg] Rey Barrera [facility] 10-28-2024 08:24-0500 Diastolic blood pressure 70 mm[Hg] Rey Barrera [facility] 10-28-2024 08:24-0500 Heart rate 79 /min Rey Barrera [facility] 10-28-2024 08:24-0500 Mean blood pressure 83 mm[Hg] Rey Barrera [facility] 10-28-2024 08:24-0500 Respiratory rate 16 /min Rey Bruce [facility] 10-28-2024 08:24-0500 SaO2% (BldA) [Mass fraction] 99 % Rey Bruce [facility] 10-28-2024 08:24-0500 Systolic blood pressure 109 mm[Hg] Rey Bruce [facility] 10-28-2024 07:42-0500 Diastolic blood pressure 107 mm[Hg] Rey Bruce [facility] 10-28-2024 07:42-0500 Heart rate 81 /min Rey Bruce [facility] 10-28-2024 07:42-0500 Mean blood pressure 119 mm[Hg] Rey Bruce [facility] 10-28-2024 07:42-0500 SaO2% (BldA) [Mass fraction] 99 % Rey Bruce [facility] 10-28-2024 07:42-0500 Systolic blood pressure 144 mm[Hg] Rey Bruce [facility] 10-28-2024 06:47-0500 Body temperature 98.24 [degF] Rey Barrera [facility] 10-28-2024 06:47-0500 Heart rate 81 /min Rey Barrera [facility] 10-10-2024 13:51-0500 Blood Pressure Location Yessy Guerrero [facility] 10-10-2024 13:51-0500 Body temperature 98.42 [degF] Yessy Guerrero [facility] 10-10-2024 13:51-0500 Diastolic blood pressure 80 mm[Hg] Yessy Guerrero [facility] 10-10-2024 13:51-0500 Heart rate 87 /min Yessy Guerrero [facility] 10-10-2024 13:51-0500 Respiratory rate 18 /min Yessy Guerrero [facility] 10-10-2024 13:51-0500 SaO2% (BldA) [Mass fraction] 94 % Yessy Guerrero [facility] 10-10-2024 13:51-0500 Systolic blood pressure 108 mm[Hg] Yessy Guerrero [facility] 07-29-2024 05:59-0500 Body temperature 98.42 [degF] Jose Wilkinson [facility] 07-29-2024 05:59-0500 Diastolic blood pressure 77 mm[Hg] Jose Minh [facility] 07-29-2024 05:59-0500 Heart rate 92 /min Jose Minh [facility] 07-29-2024 05:59-0500 Respiratory rate 17 /min Jose Minh [facility] 07-29-2024 05:59-0500 SaO2% (BldA) [Mass fraction] 97 % Jose Minh [facility] 07-29-2024 05:59-0500 Systolic blood pressure 115 mm[Hg] Jose Wilkinson [facility] 06-28-2024 14:53-0400 Body temperature 98.96 [degF] Luís Shannone [facility] 06-28-2024 14:53-0400 Diastolic blood pressure 91 mm[Hg] Luís Gin [facility] 06-28-2024 14:53-0400 Heart rate 102 /min Luís Gin [facility] 06-28-2024 14:53-0400 Respiratory rate 16 /min Luís Shannone [facility] 06-28-2024 14:53-0400 SaO2% (BldA) [Mass fraction] 100 % Luís Gin [facility] 06-28-2024 14:53-0400 Systolic blood pressure 123 mm[Hg] Luís Gin [facility] 06-11-2024 12:00-0400 Diastolic blood pressure 72 mm[Hg] Luís Gin [facility] 06-11-2024 12:00-0400 Heart rate 84 /min Luís Gin [facility] 06-11-2024 12:00-0400 SaO2% (BldA) [Mass fraction] 99 % Luís Gin [facility] 06-11-2024 12:00-0400 Systolic blood pressure 105 mm[Hg] Luís Gin [facility] 06-11-2024 11:30-0400 Diastolic blood pressure 71 mm[Hg] Luís Gin [facility] 06-11-2024 11:30-0400 Heart rate 83 /min Luís Gin [facility] 06-11-2024 11:30-0400 Mean blood pressure 83 mm[Hg] Luís Shannone [facility] 06-11-2024 11:30-0400 Respiratory rate 16 /min Luís Shannone [facility] 06-11-2024 11:30-0400 SaO2% (BldA) [Mass fraction] 98 % Luís Shannone [facility] 06-11-2024 11:30-0400 Systolic blood pressure 106 mm[Hg] Luís Shannone [facility] 06-11-2024 10:40-0400 Body temperature 97.7 [degF] Luís Shannone [facility] 06-11-2024 10:40-0400 Diastolic blood pressure 102 mm[Hg] Luís Shannone [facility] 06-11-2024 10:40-0400 Heart rate 88 /min Luís Shannone [facility] 06-11-2024 10:40-0400 Respiratory rate 18 /min Luís Greenfield [facility] 06-11-2024 10:40-0400 SaO2% (BldA) [Mass fraction] 97 % Luís Shannone [facility] 06-11-2024 10:40-0400 Systolic blood pressure 133 mm[Hg] Luís Shannone [facility] 05-29-2024 02:03-0400 Body temperature 98.24 [degF] Jose Minh [facility] 05-29-2024 02:03-0400 Diastolic blood pressure 86 mm[Hg] Jose Minh [facility] 05-29-2024 02:03-0400 Heart rate 99 /min Jose Minh [facility] 05-29-2024 02:03-0400 Respiratory rate 16 /min Jose Minh [facility] 05-29-2024 02:03-0400 SaO2% (BldA) [Mass fraction] 97 % Jose Minh [facility] 05-29-2024 02:03-0400 Systolic blood pressure 134 mm[Hg] Jose Minh [facility] 05-27-2024 13:22-0400 Blood Pressure Location NATA BARRETOTIZ [facility] 05-27-2024 13:22-0400 Body temperature 98.6 [degF] EXCELSIOR MEDINA [facility] 05-27-2024 13:22-0400 Diastolic blood pressure 82 mm[Hg] EXC[employer]OR [employer] [facility] 05-27-2024 13:22-0400 Heart rate 107 /min [employer] [facility] 05-27-2024 13:22-0400 Respiratory rate 16 /min [facility] [facility] 05-27-2024 13:22-0400 SaO2% (BldA) [Mass fraction] 97 % NATA MEDINA [facility] 05-27-2024 13:22-0400 Systolic blood pressure 114 mm[Hg] NATA MEDINA [facility] 12-01-2023 08:47-0400 Blood Pressure Location Luís Perla [facility] [place] 12-01-2023 08:47-0400 Diastolic blood pressure 75 mm[Hg] Luís Perla [facility] 12-01-2023 08:47-0400 Heart rate 83 /min Luís Perla [facility] 12-01-2023 08:47-0400 Systolic blood pressure 137 mm[Hg] Luís Perla [facility] 10-23-2023 13:40-0500 Heart rate 59 /min Gayle Arambula MD Work Phone: [facility] 10-23-2023 13:40-0500 SaO2% (BldA) [Mass fraction] 100 % Gayle Arambula MD Work Phone: [facility] 10-23-2023 13:30-0500 Diastolic blood pressure 73 mm[Hg] Gayle Arambula MD Work Phone: [facility] 10-23-2023 13:30-0500 Respiratory rate 16 /min Gayle Arambula MD Work Phone: [facility] 10-23-2023 13:30-0500 Systolic blood pressure 114 mm[Hg] Gayle Arambula MD Work Phone: [facility] 10-23-2023 13:06-0500 Body temperature 96.8 [degF] Gayle Arambula MD Work Phone: [facility] 10-23-2023 10:47-0500 Body weight 56.7 kg Gayle Arambula MD Work Phone: [facility] 07-14-2023 06:30-0500 Body temperature 98.6 [degF] Jose Wilkinson [facility] 07-14-2023 06:30-0500 Diastolic blood pressure 94 mm[Hg] Jose Minh [facility] 07-14-2023 06:30-0500 Heart rate 95 /min Jose Minh [facility] 07-14-2023 06:30-0500 Mean blood pressure 101 mm[Hg] Jose Minh [facility] 07-14-2023 06:30-0500 Respiratory rate 16 /min Jose Minh [facility] 07-14-2023 06:30-0500 SaO2% (BldA) [Mass fraction] 98 % Jose Minh [facility] 07-14-2023 06:30-0500 Systolic blood pressure 115 mm[Hg] Jose Minh [facility] 07-14-2023 06:00-0500 Heart rate 88 /min Jose Minh [facility] 07-14-2023 06:00-0500 Mean blood pressure 104 mm[Hg] Jose Minh [facility] 07-14-2023 06:00-0500 Respiratory rate 17 /min Jose Minh [facility] 07-14-2023 06:00-0500 SaO2% (BldA) [Mass fraction] 99 % Jose Minh [facility] 07-14-2023 05:31-0500 Body temperature 98.6 [degF] Jose Minh [facility] 07-14-2023 05:31-0500 Diastolic blood pressure 91 mm[Hg] Jose Minh [facility] 07-14-2023 05:31-0500 Heart rate 92 /min Jose Minh [facility] 07-14-2023 05:31-0500 Respiratory rate 16 /min Jose Minh [facility] 07-14-2023 05:31-0500 SaO2% (BldA) [Mass fraction] 98 % Jose Minh [facility] 07-14-2023 05:31-0500 Systolic blood pressure 129 mm[Hg] Jose Minh [facility] 07-14-2023 05:21-0500 Heart rate 93 /min Jose Minh [facility] 06-21-2023 14:09-0400 Body height 157.5 cm Pastora Oh MD Work Phone: [facility] 06-21-2023 14:09-0400 Body weight 54.43 kg Pastora Oh MD Work Phone: [facility] 06-21-2023 14:09-0400 Diastolic blood pressure 87 mm[Hg] Pastora Oh MD Work Phone: [facility] 06-21-2023 14:09-0400 Heart rate 78 /min Pastora Oh MD Work Phone: [facility] 06-21-2023 14:09-0400 Systolic blood pressure 142 mm[Hg] Pastora Oh MD Work Phone: [facility] 04-12-2023 03:40-0400 Body temperature 98.06 [degF] Kaylinn Dokken [facility] 04-12-2023 03:40-0400 Diastolic blood pressure 81 mm[Hg] Kaylinn Dokken [facility] 04-12-2023 03:40-0400 Heart rate 63 /min Kaylinn Dokken [facility] 04-12-2023 03:40-0400 Mean blood pressure 92 mm[Hg] Kaylinn Dokken [facility] 04-12-2023 03:40-0400 SaO2% (BldA) [Mass fraction] 99 % Kaylinn Dokken [facility] 04-12-2023 03:40-0400 Systolic blood pressure 115 mm[Hg] Kaylinn Dokken [facility] 04-12-2023 03:00-0400 Diastolic blood pressure 86 mm[Hg] Kaylinn Dokken [facility] 04-12-2023 03:00-0400 Heart rate 64 /min Kaylinn Dokken [facility] 04-12-2023 03:00-0400 Mean blood pressure 95 mm[Hg] Kaylinn Dokken [facility] 04-12-2023 03:00-0400 Systolic blood pressure 113 mm[Hg] Kaylinn Dokken [facility] 04-12-2023 01:56-0400 Body temperature 98.24 [degF] Kaylinn Dokken [facility] 04-12-2023 01:56-0400 Diastolic blood pressure 82 mm[Hg] Kaylinn Dokken [facility] 04-12-2023 01:56-0400 Heart rate 65 /min Kaylinn Dokken [facility] 04-12-2023 01:56-0400 Respiratory rate 20 /min Kaylinn Dokken [facility] 04-12-2023 01:56-0400 SaO2% (BldA) [Mass fraction] 99 % Kaylinn Dokken [facility] 04-12-2023 01:56-0400 Systolic blood pressure 118 mm[Hg] Desean Mayes [facility] 03-19-2023 08:49-0400 Diastolic blood pressure 83 mm[Hg] Jose Minh [facility] 03-19-2023 08:49-0400 Heart rate 86 /min Jose Minh [facility] 03-19-2023 08:49-0400 Mean blood pressure 97 mm[Hg] Jose Minh [facility] 03-19-2023 08:49-0400 SaO2% (BldA) [Mass fraction] 98 % Jose Minh [facility] 03-19-2023 08:49-0400 Systolic blood pressure 124 mm[Hg] Jose Minh [facility] 03-19-2023 06:46-0400 Body temperature 97.7 [degF] Jose Minh [facility] 03-19-2023 06:46-0400 Diastolic blood pressure 88 mm[Hg] Jose Minh [facility] 03-19-2023 06:46-0400 Heart rate 89 /min Jose Minh [facility] 03-19-2023 06:46-0400 Respiratory rate 18 /min Jose Minh [facility] 03-19-2023 06:46-0400 SaO2% (BldA) [Mass fraction] 97 % Jose Minh [facility] 03-19-2023 06:46-0400 Systolic blood pressure 130 mm[Hg] Jose Minh [facility] 11-11-2022 23:00-0500 Heart rate 72 /min Kaylinn Dokken [facility] 11-11-2022 23:00-0500 Mean blood pressure 97 mm[Hg] Kaylinn Dokken [facility] 11-11-2022 22:00-0500 Diastolic blood pressure 103 mm[Hg] Kaylinn Dokken [facility] 11-11-2022 22:00-0500 Heart rate 68 /min Kaylinn Dokken [facility] 11-11-2022 22:00-0500 Mean blood pressure 110 mm[Hg] Kaylinn Dokken [facility] 11-11-2022 20:57-0500 Body temperature 98.24 [degF] Kaylinn Dokken [facility] 11-11-2022 20:57-0500 Diastolic blood pressure 83 mm[Hg] Kaylinn Dokken [facility] 11-11-2022 20:57-0500 Heart rate 73 /min Kaylinn Dokken [facility] 11-11-2022 20:57-0500 Respiratory rate 16 /min Kaylinn Dokken [facility] 11-11-2022 20:57-0500 SaO2% (BldA) [Mass fraction] 100 % Kaylinn Dokken [facility] 11-11-2022 20:57-0500 Systolic blood pressure 124 mm[Hg] Kaylinn Dokken [facility] 11-11-2022 17:00-0500 Diastolic blood pressure 76 mm[Hg] Rey Bruce [facility] 11-11-2022 17:00-0500 Heart rate 87 /min Rey Bruce [facility] 11-11-2022 17:00-0500 Respiratory rate 18 /min Rey Barrera [facility] 11-11-2022 17:00-0500 SaO2% (BldA) [Mass fraction] 97 % Rey Barrera [facility] 11-11-2022 17:00-0500 Systolic blood pressure 134 mm[Hg] Rey Barrera [facility] 11-11-2022 14:59-0500 Body temperature 98.06 [degF] Rey Barrera [facility] 11-11-2022 14:59-0500 Diastolic blood pressure 83 mm[Hg] Rey Barrera [facility] 11-11-2022 14:59-0500 Heart rate 102 /min Rey Barrera [facility] 11-11-2022 14:59-0500 Respiratory rate 16 /min Rey Barrera [facility] 11-11-2022 14:59-0500 SaO2% (BldA) [Mass fraction] 99 % Rey Barrera [facility] 11-11-2022 14:59-0500 Systolic blood pressure 129 mm[Hg] Rey Barrera [facility] 06-28-2022 17:23-0400 Body temperature 98.42 [degF] Luís Greenfield [facility] 06-28-2022 17:23-0400 Diastolic blood pressure 86 mm[Hg] Luís Greenfield [facility] 06-28-2022 17:23-0400 Heart rate 102 /min Luís Greenfield [facility] 06-28-2022 17:23-0400 Respiratory rate 14 /min Luís Greenfield [facility] 06-28-2022 17:23-0400 Systolic blood pressure 123 mm[Hg] Luís Greenfield [facility] Encounters Encounter Date Encounter Type Care Provider Facility Start: 12-03-2024 End: 12-03-2024 ambulatory Jenn Urban MD Work Phone: [facility] Work Phone: Start: 12-03-2024 End: 12-03-2024 Departed Referred Jenn Urban MD Work Phone: [facility]LAB [facility] Start: 11-26-2024 End: 11-26-2024 Admission to same day surgery center Jenn Urban MD Work Phone: [facility] Start: 11-26-2024 End: 11-26-2024 ambulatory Jenn Urban MD Work Phone: [facility] Work Phone: Start: 11-25-2024 End: 11-26-2024 ambulatory Marybel Will Facility:[id number] Start: 11-22-2024 ambulatory Marybel Will Facility:[facility] Start: 10-28-2024 End: 10-28-2024 Emergency department patient visit Rey Barrera Facility:[facility] Start: 10-10-2024 End: 10-10-2024 Lab Drop off Yessy Guerrreo [facility] Start: 10-10-2024 End: 10-10-2024 ambulatory Yessy Guerrero Facility:[facility] Start: 10-10-2024 End: 10-10-2024 Patient encounter procedure Yessy Arnett Cesar [facility] Start: 07-29-2024 End: 07-29-2024 Emergency department patient visit Jose Wilkinson [facility] Start: 07-11-2024 End: 07-11-2024 Telephone encounter 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 Resendiz 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 Comment on above: Appointment (Pre-pro cedure instructions.) Start: 07-04-2024 End: 07-04-2024 ambulatory Ole Ramos Boris Facility:[facility] Start: 07-04-2024 End: 07-04-2024 Lab Drop off Ole Escalante [facility] Start: 06-28-2024 End: 06-28-2024 Emergency department patient visit Luís Greenfield [facility] Start: 06-11-2024 End: 06-11-2024 Emergency department patient visit Luís Greenfield Facility:[facility] Start: 05-29-2024 End: 05-29-2024 Emergency department patient visit Jose Wilkinson [facility] Start: 05-27-2024 End: 05-27-2024 ambulatory [facility] Facility:[facility] Start: 05-27-2024 End: 05-27-2024 Patient encounter procedure [facility] Start: 02-16-2024 Orders Only Abner Almazan MD Work Phone: Gastroenterology Comment on above: Generalized abdomina l pain (Primary Dx) Start: 02-13-2024 Telephone encounter Abner Gutierrez MD Work Phone: Gastroenterology Comment on above: Orders Start: 01-29-2024 ambulatory Luís Perla Facility:[facility] Start: 12-19-2023 End: 12-19-2023 ambulatory Luís Perla Facility:[facility] Start: 12-19-2023 End: 12-19-2023 Patient encounter procedure Luís Perla [facility] Start: 12-01-2023 End: 12-01-2023 ambulatory Luís Perla Facility:[facility] Start: 12-01-2023 End: 12-01-2023 Patient encounter procedure Luís Perla [facility] Start: 10-23-2023 End: 10-23-2023 ambulatory JENN URBAN Facility:[facility] Start: 10-23-2023 End: 10-23-2023 Subsequent hospital visit by physician Gayle Arambula MD Work Phone: Gastroenterology Comment on above: Generalized abdomina l pain [R10.84] Start: 10-16-2023 Telephone encounter Juan Luis Oneil RNmilking 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 Start: 10-02-2023 End: 10-02-2023 Patient encounter procedure Armstrongcarlo Kirkpatrickjeffry [facility] Start: 09-20-2023 End: 09-20-2023 ambulatory EJNN F URBAN Facility:[facility] Start: 09-11-2023 End: 09-11-2023 ambulatory JENN F URBAN Facility:[facility] Start: 08-22-2023 End: 08-22-2023 ambulatory JENN F URBAN Facility:[facility] Start: 08-11-2023 End: 08-11-2023 ambulatory JENN F URBAN Facility:[facility] Start: 08-01-2023 End: 08-01-2023 ambulatory PASTORA OH Facility:[facility] Start: 07-14-2023 End: 07-14-2023 Emergency department patient visit Jose Wilkinson [facility] Start: 06-22-2023 Telephone encounter Pastora Oh MD Work Phone: General Surgery Comment on above: Patient Update Start: 06-21-2023 End: 06-21-2023 Patient encounter procedure Pastora Oh MD Work Phone: General Surgery Comment on above: Abnormal CT of the a bdomen (Primary Dx); Infection in abdomen (HCC) Start: 06-19-2023 ambulatory Analilia cordero APRN.MEAT PUMPER Work Phone: Gastroenterology Start: 04-12-2023 End: 04-12-2023 Emergency department patient visit Desean Mayes [facility] Start: 03-19-2023 End: 03-19-2023 Emergency department patient visit Jose Wilkinson [facility] Start: 11-11-2022 End: 11-11-2022 Emergency department patient visit Desean Mayes [facility] Start: 11-11-2022 End: 11-11-2022 Emergency department patient visit Rey Barrera [facility] Start: 10-05-2022 End: 10-05-[address] DOCTOR FUNG Facility:[facility] Start: 08-14-2022 End: 08-14-[address] MARTELL WEEKS Facility:[facility] Start: 08-08-2022 End: 08-08-[address] RIMA Burrows Facility:[facility] Start: 06-28-2022 End: 06-28-2022 Emergency department patient visit Luís Greenfield [facility] Procedures Date Procedure Procedure Detail Performing Clinician Start: 11-26-2024 Cystoscopy Jenn Urban MD Work Phone: Start: 10-23-2023 Esophagoscp rig drew soral hypopharynx crv esoph Abner Almazan MD Work Phone: Start: 10-23-2023 Colonoscopy flx dx w /collj spec when pfrmd Abner Almazan MD Work Phone: Denies Luís Greenfield Plan of Treatment Date Care Activity Detail Author Start: 08-11-2026 Screening for malignant neoplasm of cervix [facility] Start: 05-04-2025 Urine microalbumin profile [facility] Start: 12-03-2024 Bacteria identified in Urine by Culture Urine Culture [facility] Start: 12-03-2024 [address] culture [facility] Start: 11-26-[address] [facility] Start: 11-26-[address] [facility] Start: 11-26-[address] [facility] Start: 08-11-2024 GC (Gonorrhea) Screening (18-24) GC (Gonorrhea) Screening (18-24) [facility] Start: 08-11-2024 Screening for Chlamydia trachomatis Chlamydia Screening (18-24) [facility] Start: 07-18-2024 End: 07-18-2024 Patient encounter procedure 07/18/2024 7:30 AM EST Appointment Gastroenterology [address] [id number] Gayle Arambula MD [address] [address] Generalized abdominal pain [R10.84] Gastroenterology Comment on above: Generalized abdominal pain [R10.84] Start: 05-05-2024 Covid-19 Vaccine ( season) Covid-19 Vaccine () [facility] Start: 05-05-2024 Influenza vaccination [facility] Start: 09-04-2023 Behavioral Health Screening Behavioral Health Screening [facility] Start: 09-04-2023 Depression Assessment Depression Assessment [facility] Start: 05-05-2023 Covid-19 Vaccine ( season) Covid-19 Vaccine ( season) [facility] Start: 05-05-2023 Influenza vaccination Influenza Vaccine (#1) [facility] Start: 09-04-2022 Depression Assessment Depression Assessment [facility] Start: 2021 Urine microalbumin profile DTaP,Tdap,Td Vaccine (1 - Tdap) [facility] Start: 2020 Anxiety Screening Anxiety Screening [facility] Start: 2020 Chlamydia Screening () Chlamydia Screening (18-) [facility] Start: 2020 Depression Screening Depression Screening [facility] Start: 2020 GC (Gonorrhea) Screening (18-24) GC (Gonorrhea) Screening (18-) [facility] Start: 2020 Hepatitis C Screening Hepatitis C Screening [facility] Start: 2020 Hepatitis C screening Hepatitis C Screening [facility] Start: 2020 HIV Screening HIV Screening [facility] Start: 2020 HIV screening HIV Screening [facility] Start: 2018 Meningococcal B Vaccine: Consider Based On Risk (1 of 2 - Patient Seeks Protection) Meningococcal B Vaccine: Consider Based On Risk (1 of 2 - Patient Seeks Protection) [facility] Start: 2016 Peds To Adult Transition Annual Assessment Peds To Adult Transition Annual Assessment [facility] Start: 11-02-2015 HPV Vaccine (2 - 2-dose series) HPV Vaccine (2 - 2-dose series) [facility] Start: 2014 Peds To Adult Transition Initial Discussion Peds To Adult Transition Initial Discussion [facility] Start: 2011 HPV Vaccine (1 - 2-dose series) HPV Vaccine (1 - 2-dose series) [facility] Start: 2002 Covid-19 Vaccine (#1) Covid-19 Vaccine (#1) [facility] Start: 2002 Hepatitis B Vaccine (1 of 3 - 3-dose series) Hepatitis B Vaccine (1 of 3 - 3-dose series) [facility] Bilirubin measurement [facility] Body weight [facility] Calcium carbonate/Total in Stone [facility] Calcium hydrogen phosphate dihydrate/Total in [facility] Calcium oxalate monohydrate/Total in [facility] Calcium phosphate level [facility] Calculus analysis wi th calculus photography [Interpretation] in [facility] Calculus analysis, qualitative [facility] Calculus analysis, quantitative [facility] Calculus analysis, quantitative, infrared spectroscopy [facility] Cellular material [Mass/mass] of Stone by Estimated [facility] Cholesterol [Mass/volume] in Serum or Plasma [facility] End: 07-20-2024 Ct abdomen & pelvis w/contrast material CT ABD/PEL W IVCON Radiology Routine Infection in abdomen (HCC) 1 Occurrences starting 06/21/2023 until 07/20/2024 [facility] Work Phone: Comment on above: 1 Occurrences starting 06/21/2023 until 07/20/2024 Cystine measurement [facility] Determination of calculus chemical composition [facility] Evaluation procedure [facility] End: 02-15-2025 Flexible sigmoidoscopy study COLONOSCOPY DIAGNOSTIC Endoscopy Routine Generalized abdominal pain 1 Occurrences starting 02/16/2024 until 02/15/2025 [facility] Work Phone: Comment on above: 1 Occurrences starting 02/16/2024 until 02/15/2025 Hydroxyapatite [Ener gy Difference] in 24 hour Urine [facility] Laboratory data interpretation [facility] Newberyite/Total in [facility] Patient Education Ureteroscopy - Discharge instructions Lithotripsy for kidney stones - Discharge instructions Ureteral stent placement - Discharge instructions Know your Meds [facility] Work Phone: Patient referral [facility] Work Phone: Specimen source subject [Type] [facility] SURGICAL PATHOLOGY [facility] Work Phone: Comment on above: Release Upon Ordering for 1 Occurrences starting 10/23/2023, 1 completed Triamterene measurement [facility] Triple phosphate/Tot al in [facility] Immunizations Immunization Date Immunization Notes Care Provider Fa cility 08-11-2023 HPV, unspecified formulation Nathaniel Weeks [facility] 08-11-2023 Human Papillomavirus 9-valent vaccine Juan Luis Oneil RN [facility] 06-22-2020 meningococcal ACWY vaccine, unspecified formulation Jose Minh [facility] 05-04-2015 HPV, unspecified formulation Jose Minh [facility] 05-04-2015 meningococcal ACWY vaccine, unspecified formulation Jose Minh [facility] 05-04-2015 tetanus toxoid, redu natalie diphtheria toxoid, and acellular pertussis vaccine, adsorbed Jose Minh [facility] 05-23-2008 diphtheria, tetanus toxoids and acellular pertussis vaccine, unspecified formulation Juan Luis Oneil RN [facility] 05-23-2008 DTaP, unspecified formulation Jose Minh [facility] 05-23-2008 Hep A, unspecified formulation Jose Minh [facility] 05-23-2008 hepatitis A vaccine, unspecified formulation uJan Luis Oneil RN [facility] 05-23-2008 measles, mumps and rubella virus vaccine Jose Minh [facility] 05-23-2008 poliovirus vaccine, unspecified formulation Jose Minh [facility] 05-23-2008 varicella virus vaccine Jose Minh [facility] 01-04-2006 diphtheria, tetanus toxoids and acellular pertussis vaccine, unspecified formulation Juan Luis Oneil RN [facility] 01-04-2006 DTaP, unspecified formulation Jose Minh [facility] 09-29-2004 DTaP-hepatitis B and poliovirus vaccine Jose Minh [facility] 09-29-2004 haemophilus influenz ae type b vaccine, conjugate unspecified formulation Juan Luis Oneil RN [facility] 09-29-2004 Hib, unspecified formulation Jose Minh [facility] 09-29-2004 measles, mumps and rubella virus vaccine Jose Minh [facility] 09-29-2004 varicella virus vaccine Jose Minh [facility] 2002 diphtheria, tetanus toxoids and acellular pertussis vaccine, unspecified formulation Juan Luis Oneil RN [facility] 2002 DTaP, unspecified formulation Jose Minh [facility] 2002 haemophilus influenz ae type b vaccine, PRP-OMP conjugate Jose Minh [facility] 2002 poliovirus vaccine, unspecified formulation Jose Minh [facility] 2002 diphtheria, tetanus toxoids and acellular pertussis vaccine, unspecified formulation Juan Luis Oneil RN [facility] 2002 DTaP, unspecified formulation Jose Minh [facility] 2002 haemophilus influenz ae type b vaccine, PRP-OMP conjugate Jose Minh [facility] 2002 hepatitis B vaccine, pediatric or pediatric/adolescent dosage Jose Wilkinson [facility] 2002 poliovirus vaccine, unspecified formulation Jose Wilkinson [facility] 2002 hepatitis B vaccine, pediatric or pediatric/adolescent dosage Jose Wilkinson [facility] NEGATED: Highlighted row has not occurred!10-10-2024 influenza virus vaccine, unspecified formulation Yessy Guerrero [facility] NEGATED: Highlighted row has not occurred!12-01-2023 influenza virus vaccine, unspecified formulation Luís Perla [facility] [place] Payers Date Payer Category Payer Self-pay 2022 Medicaid [employer] [place] [id number] 2022-Present [id number] [place] [id number] Medicaid [id number] 2002 Unknown [id number] 2.16.840.1.617255.3.579.2.593 2002 Unknown [id number] 2.16.840.1.456052.3.579.2.593 2002 Unknown [id number] 2.16.840.1.481749.3.579.2.593 2002 Unknown [id number] 2.16.840.1.446061.3.579.2.727 2002 Unknown [id number] 2.16.840.1.026120.3.579.2.727 2002 Unknown [id number] 2.16.840.1.542951.3.579.2.727 2002 Unknown [id number] 2.16.840.1.094126.3.579.2.727 2002 Unknown [id number] 2.16.840.1.167504.3.579.2.727 2002 Unknown [id number] 2.16.840.1.581493.3.579.2.727 2002 Unknown [id number] 2.16.840.1.131850.3.579.2.727 2002 Unknown [id number] 2.16.840.1.976403.3.579.2.727 2002 Unknown [id number] 2.16.840.1.575123.3.579.2.727 2002 Unknown [id number] 2.16.840.1.001856.3.579.2.727 2002 Unknown [id number] 2.16.840.1.813229.3.579.2.727 2002 Unknown [id number] 2.16.840.1.092405.3.579.2.727 2002 Unknown [id number] 2.16.840.1.411207.3.579.2.727 2002 Unknown [id number] 2.16.840.1.712497.3.579.2.727 2002 Unknown [id number] 2.16.840.1.329682.3.579.2.727 2002 Unknown [id number] 2.16.840.1.768946.3.579.2.727 2002 Unknown [id number] 2.16.840.1.690022.3.579.2.727 1959 Unknown [id number] Unknown [id number] 2.16.840.1.982529.3.579.2.531 Unknown [id number] 2.16.840.1.223938.3.579.2.531 Social History Date Type Detail Facility Start: 11-28-2018 End: 10-10-2024 Tobacco smoking status Never smoked tobacco (finding) [facility] Start: 01-07-2023 End: 08-22-2023 Sex Assigned At Female [facility] Tobacco smoking status NHIS Tobacco smoking consumption unknown [facility] Work Phone: Start: 01-07-2023 End: 08-22-2023 History of Social function [facility] National Score (1-100), lower number is lower risk 75 [facility] Start: 2000 Sex Assigned At Not on file [facility] Start: 06-21-2023 Tobacco use and exposure Smokeless tobacco non-user [facility] Start: 06-22-2023 End: 10-23-2023 Alcohol intake Ex-drinker (finding) [facility] Start: 11-26-2024 End: 12-04-2024 Sex Female (finding) [facility] Start: 2000 Sex Assigned At Female F [facility] Medical Equipment Procedure Code Equipment Code Equipment Origin al Text Equipment Identifier Dates Cystoscopy, with ureteral calculus manipulation and stent placement Polymeric ureteral stent ([id number] [facility] Start: 11-26-2024 Goals Date Patient Goal Desired Activity /State Functional Status Date Assessment Result Facility 10-28-2024 Functional Status N/A [facility] 10-10-2024 Functional Status N/A [facility] 07-29-2024 Functional Status N/A [facility] 06-28-2024 Functional Status N/A [facility] 06-11-2024 Functional Status N/A [facility] 05-29-2024 Functional Status N/A [facility] 05-27-2024 Functional Status N/A [facility] 07-14-2023 Functional Status N/A [facility] 04-12-2023 Functional Status N/A [facility] 03-19-2023 Functional Status N/A [facility] 11-11-2022 Functional Status N/A [facility] 11-11-2022 Functional Status N/A [facility] 06-28-2022 Functional Status N/A [facility] Clinical Notes 06-28-2022 to 11-26-2024 Note [...] stool softeners. You can buy AZO (phenazopyridine) sxoz-fte-wnhhczx and use as needed for burning with urination. This will make your urine orange. Drink plenty of water and fluids Start antibiotics the morning of stent removal in 2-3 weeks. You must follow up to ensure your stent is removed. Failure to do so may result in recurrent infections and renal failure. [facility] Work Phone: 11-25-2024 Note Patient Education Nephrology [...] ? 8 oz (237 mL) of milk, iwvawml-cnbbsaxoudvv-zzikn milk, and calcium-fortifiedfruit juice. Calcium-fortified means that [...] Spinach (cooked), rhubarb, beets, sweet potatoes, and Cameroonian chard. ? Peanuts. ? Potato chips, polish fries, and baked potatoes with skin on. ? Nuts and nut products. ? Chocolate. ??? If you regularly take a diuretic medicine, make sure to eat at least 1 or 2 servings of fruits or vegetables that are high in potassium each day. These include: ? Avocado. ? Banana. ? Blair, prune, carrot, or tomato juice. ? Baked [...] fish oil, or vitamin B6. ??? Take mwpd-wxn-mzpzuak and prescription medicines only as told by your health (more content not included)... [facility] 10-28-2024 Evaluation + Plan note Diagnostic Tests PendingUrine Culture 10/28/24 [facility] 10-28-2024 Hospital Discharge instructions Patient Education 10/28/2024 [...] Treatment for this condition includes: Antibiotic medicine. Ecox-vjn-noinnkd medicines to treat discomfort. Drinking enough water [...] Follow these instructions at home: Medicines Take xvqk-avt-vpjwmqz and prescription medicines only as told by [...] provider. Document Revised: 03/28/2021 Document Reviewed: 04/02/2021 [employer] Patient Education 2023 [employer]. 10/28/2024 09:31:17 Kidney Stones Kidney Stones Kidney [...] Follow these instructions at home: Medicines Take qvvu-ifj-brllals and prescription medicines only as told by [...] provider. Document Revised: 11/30/2022 Document Reviewed: 11/30/2022 [employer] Patient Education 2023 MyNext[employer]. Follow Up Care 10/28/2024 06:46:22 With:BRIDGET BENITO Address:Unknown When:10/31/2024 09:14:15 Comments:Please call urology office to set up close follow-up appointment. Take medications as directed. Strain all urine. Return to ED if symptoms worsen or new symptoms arise. With:Jenn Urban Address: [address] [place] [address]- Business (1) When:10/31/2024 09:14:15 [facility] 10-28-2024 Note ED Patient Education Note Obstetrics [...] this condition includes: ??? Antibiotic medicine. ??? Jjve-bdt-sqojufr medicines to treat discomfort. ??? Drinking enough [...] these instructions at home: Medicines ??? Take gbpr-edz-zvrzbbv and prescription medicines only as told by [...] rasheeda (more content not included)... [facility] 10-10-2024 Hospital Discharge instructions Patient Education [...] Treatment for this condition includes: Antibiotic medicine. Umib-uzi-bnszaun medicines to treat discomfort. Drinking enough water [...] Follow these instructions at home: Medicines Take jerr-ojq-zziyvnx and prescription medicines only as told by [...] provider. Document Revised: 03/28/2021 Document Reviewed: 04/02/2021 [employer] Patient Education 2023 My[employer]Run. 10/10/2024 14:41:37 Pyelonephritis, Adult Pyelonephritis, Adult Pyelonephritis [...] can irritate the bladder. General instructions Take hxyr-xxi-amjkhmj and prescription medicines as told by your [...] provider. Document Revised: 03/13/2023 Document Reviewed: 03/13/2023 [employer] Patient Education 2023 [employer] Follow Up Care 10/10/2024 11:53:54 With:JENN URBAN Address: When: Unknown [facility] 10-10-2024 Note Patient Education [...] irritate the bladder. General instructions ??? Take dewu-hzw-gpuevxj and prescription medicines as told by your [...] provider. Document Revised: 03/13/2023 Document Reviewed: 03/13/2023 [employer] Patient Education ? 2023 [employer] Obstetrics and Gynecology Urinary Tract Infection, Adult [...] f (more content not included)... [facility] 10-10-2024 Evaluation + Plan note Diagnostic Tests PendingUrine Culture 10/10/24 [facility] 07-29-2024 Evaluation + Plan note Extrac james [...] Nausea/Vomiting, # 16 tab(s), Refills(s) 0, Pharmacy: [facility]/pharmacy #[id number], 158, cm, 07/29/24 6:03:00 EST, Height/Length Dosing, 64.6, kg, 07/29/24 6:03:00 EST, Weight Dosing pantoprazole, 20 mg = 1 tab(s), Oral, Daily, X 14 day(s), # 14 tab(s), Refills(s) 0, Pharmacy: [facility]/pharmacy #[id number], 158, cm, 07/29/24 6:03:00 EST, Height/Length Dosing, 64.6, kg, 07/29/24 6:03:00 EST, Weight Dosing sucralfate, 1 gm = 1 tab(s), Oral, QID, X 10 day(s), # 40 tab(s), Refills(s) 0, Pharmacy: [facility]/pharmacy #[id number], 158, cm, 07/29/24 6:03:00 EST, Height/Length Dosing, 64.6, kg, 07/29/24 6:03:00 EST, Weight Dosing .UA With Cult Reflex Basic Metabolic Panel CBC w/ Auto Diff eGFR Extra Blue Tube Hepatic Function Panel Lipase Level U Beta Hcg Qual UA with Cult Rflx [facility] 11-25-2024 Hospital Discharge instructions Patient Education 07/29/2024 [...] Follow these instructions at home: Medicines Take fjga-swb-gqchgnz and prescription medicines only as told by [...] provider. Document Revised: 06/07/2023 Document Reviewed: 06/07/2023 [employer] Patient Education 2023 MyNextRun. Follow Up Care 07/29/2024 05:52:33 With:Jenn Urban Address: [address] [place] [address]. [address] [place] [address]- Business (1) When:Within 3 Day(s) [facility] 11-25-2024 NoteED Patient Education Note Gastroenterology Abdominal [...] these instructions at home: Medicines ??? Take ydph-kzo-fgjxdno and prescription medicines only as told by [...] provider. Document Revised: 06/07/2023 Document Reviewed: 06/07/2023 [employer] Patient Education ? 2023 MyNextRun.[facility] 07-11-2024 Telephone encounter Note* Telephone Encounter [...] have family/friend present for procedure transport home:Patient/patient ambulatory service representative was told that if they do [...] area. Any barriers to Patient learning: Patient/Patient Chief Cruiser responded appropriately on phone. Type of instruction given: Verbal by telephone contact. Sarita Resendiz RN [facility]11-07-2024 Miscellaneous Notes* Telephone Encounter - Sarita Resendiz [...] have family/friend present for procedure transport home:Patient/patient ambulatory service representative was told that if they do [...] area. Any barriers to Patient learning: Patient/Patient Chief Cruiser responded appropriately on phone. Type of instruction given: Verbal by telephone contact. Sarita Resendiz RN documented in [facility] Evaluation + Plan note Diagnostic Tests Pending * HSV Cult & Typing 07/04/24 [facility] [id number] Hospital Discharge instructions Patient Education 06/28/2024 17:23:50 [...] Treatment for this condition includes: Antibiotic medicine. Ywxr-wkh-cmylchd medicines to treat discomfort. Drinking enough water [...] Follow these instructions at home: Medicines Take vtfb-jyv-izqfcpp and prescription medicines only as told by [...] provider. Document Revised: 03/28/2021 Document Reviewed: 04/02/2021 [employer] Patient Education 2023 MyNextRun. Follow Up Care 06/28/2024 14:47:32 With:Jenn Urban Address: [address] [place] [address]. [address] [place], [place] [phone]- Business (1) When:07/01/2024 16:50:51 [facility] 10-25-2024 NoteED Patient Education Note Obstetrics and [...] this condition includes: ??? Antibiotic medicine. ??? Kbxz-vyn-cxslaim medicines to treat discomfort. ??? Drinking enough [...] these instructions at home: Medicines ??? Take jdto-dho-vvrvruu and prescription medicines only as told by [...] Make rasheeda (more content not included)...[facility]10-25-2024 Evaluation + Plan note Diagnostic Tests Pending * Chlam/GC/Trich,JERMAINE 06/28/24 * Urine Culture 06/28/24 [facility] [id number] Hospital Discharge instructions Patient Education 06/11/2024 12:23:12 [...] Treatment for this condition includes: Antibiotic medicine. Rgki-fsu-encqvpn medicines to treat discomfort. Drinking enough water [...] Follow these instructions at home: Medicines Take cmft-mpm-osgcfzr and prescription medicines only as told by [...] provider. Document Revised: 03/28/2021 Document Reviewed: 04/02/2021 [employer] Patient Education 2023 MyNextRun. 06/11/2024 12:23:12 Constipation, Adult Constipation, Adult Constipation [...] as fried or sweet foods. These include polish fries, hamburgers, cookies, candies, and soda. Drink enough fluid to keep your urine pale yellow. General instructions Exercise regularly or as told by your health care provider. Try to do 150 minutes of moderate exercise each week. Use the bathroom when you have the urge to go. Do not hold it in. Take zkqt-ynf-sxqdkte and prescription medicines only as told by [...] to keep your urine pale yellow. Take xcrs-lbl-sgpyhkh and prescription medicines only as told by your health care provider. This includes any fiber supplements. This information is not intended to replace advice given to you by your health care provider. Make sure you discuss any questions you have with your health care provider. Document Revised: 07/05/2023 Document Reviewed: 07/05/2023 [employer] Patient Education 2023 [employer] Follow Up Care 06/11/2024 10:36:26 With:Jenn Urban Address: [address] [place] [address] [place], [place] [id number] Business (1) When:06/14/2024 12:17:21 [facility] 10-08-2024 Evaluation + Plan note Diagnostic Tests Pending * Urine Culture 06/11/24 [facility] 10-08-2024 NoteED Patient Education Note Gastroenterology Constipation, [...] as fried or sweet foods. These include polish fries, hamburgers, cookies, candies, and soda. ? Drink enough fluid to keep your urine pale yellow. General instructions ? Exercise regularly or as told by your health care provider. Try to do 150 minutes of moderate exercise each week. ? Use the bathroom when you have the urge to go. Do not hold it in. ? Take fojx-mxs-anhmsha and prescription medicines only as told by [...] keep your urine pale yellow. ? Take rprc-foa-licpzso and prescription medicines only as told by your health care provider. This includes any fiber supplements. This information is not intended to replace advice given to you by your health care provider. Make sure you discuss any questions you have with your health care provider. Document Revised: 07/05/2023 Document Reviewed: 07/05/2023 [employer] Patient Education ? 2023 [employer] Obstetrics and Gynecology Urinary Tract Infection, Adult [...] In tanya (more content not included)...[facility]09-25-2024 Evaluation + Plan note Extracted from: Title:ED Note Author:Jose Wilkinson DO Date :05/29/24 Otitis externa of both ears (H60.93: Unspecified otitis externa, bilateral) Orders: polymyxin B-trimethoprim ophthalmic, 4 drop(s), Soln-Opth, Ear-Both, Once, Stop date 05/29/24 2:41:00 EDT, STAT, Start date 05/29/24 2:41:00 EDT [facility] 09-25-2024 Hospital Discharge instructions Patient Education 05/29/2024 [...] if you start to feel better. Take eowl-ljg-bfgkoal and prescription medicines only as told by [...] provider. Document Revised: 11/03/2021 Document Reviewed: 11/03/2021 [employer] Patient Education 2023 MyNextRun. Follow Up Care 05/29/2024 01:48:33 With:Jenn Urban Address: [address] [place] [address]. [address] [place] [phone]- Business (1) When:Within 3 Day(s) [facility] 09-25-2024 NoteED Patient Education Note Infectious Disease [...] you start to feel better. ? Take oirc-qnp-sccqggq and prescription medicines only as told by [...] provider. Document Revised: 11/03/2021 Document Reviewed: 11/03/2021 [employer] Patient Education ? 2023 MyNextRun.[facility] 05-27-2024 Hospital Discharge instructions Patient Education [...] Centers for Disease Control and Prevention: cdc.gov [place] [employer]: heart.org National Heart, Lung, and Blood [place]: nhlbi.nih.gov This information is not intended to replace advice given to you by your health care provider. Make sure you discuss any questions you have with your health care provider. Document Revised: 05/11/2023 Document Reviewed: 05/04/2023 [employer] Patient Education 2023 [employer] 05/27/2024 13:56:37 Otitis Media, Adult, Mrur-vp-Kipi Otitis Media, Adult Otitis media is a [...] pain. Follow these instructions at home: Take ksmx-dfb-yekkfcf and prescription medicines only as told by [...] provider. Document Revised: 11/29/2021 Document Reviewed: 11/29/2021 [employer] Patient Education 2023 [employer] 05/27/2024 13:56:30 Ear Drops, Adult, Ppmm-wr-Xlld Ear Drops, Adult Your doctor has found [...] cannot use soap and water, use hand stoker installation mechanic. 2.Make sure your ears are clean and [...] you cannotuse soap and water, use hand stoker installation mechanic. Follow these instructions at home: Use the [...] provider. Document Revised: 01/24/2023 Document Reviewed: 01/02/2023 [employer] Patient Education 2023 MyNextRun. Follow Up Care 05/27/2024 12:39:57 With:Wilmar PIERCE, DIANA Alejandre Address:Unknown When: Unknown [facility] 09-23-2024 NotePatient Education Caregiving [...] cannot use soap and water, use hand stoker installation mechanic. 2. Make sure your ears are clean [...] cannot use soap and water, use hand stoker installation mechanic. Follow these instructions at home: ? Use [...] provider. Document Revised: 01/24/2023 Document Reviewed: 01/02/2023 [employer] Patient Education ? 2023 [employer] ENT Otitis Media, Adult Otitis media is [...] at home: (more content not included)...[facility]06-14-2024 Telephone encounter Note* Telephone Encounter - Ines Watts LPN - 02/16/2024 4:12 PM EDT Nurse called patient no answer message left to call office. Ines Watts LPN February 16, 2024 4:14 PM [facility]06-14-2024 Miscellaneous Notes* Telephone Encounter - Ines Watts [...] calling: self Call patient at: on cell [phone] (home) [phone] (cell) Was an appointment scheduled: No Closing statement: Symptom Call: Thank you for calling [facility], your call is very important. A nurse will call in approximately 2-4 hours during business hours. If this is an emergency, please contact 911. Mirna Melendez documented in this encounterHol[facility]06-14-2024 Instructions* Patient Instructions* Abner Almazan MD - [...] If you do not have a responsible courtesy car driver (family member or friend) withyou to [...] your exam. 2 08/2019 documented in this encounterHol[facility]06-11-2024 Telephone encounter Note * Telephone Encounter - [...] Watts LPN February 13, 2024 9:34 AM [facility]06-11-2024 Telephone encounter Note* Telephone Encounter - Mirna [...] calling: self Call patient at: on cell [phone] (home) [phone] (cell) Was an appointment scheduled: No Closing statement: Symptom Call: Thank you for calling [facility], your call is very important. A nurse will call in approximately 2-4 hours during business hours. If this is an emergency, please contact 911. Mirna Melendez [facility]03-29-2024 Evaluation + Plan note Future Scheduled Tests Radiology* MRI Breast w/o and w/ Contrast, Bilat 12/01/23 [facility] [place] 02-19-2024 Nurse Note* Gunjan Reid, RN - 10/23/2023 [...] RN In Department: GASTROENTEROLOGY documented in this encounterHolzer Medical Center [facility]02-19-2024 NoteQ3 Patient Name: Sherie Rizvi Procedure Date: 10/23/2023 12:17 PM Date of : 2000 Admit Type: Outpatient Age: 23 Gender: Female Note Status: Finalized Attending MD: Gayle Arambula MD, [id number] Procedure: Upper GI endoscopy Indications: Dysphagia Providers: [...] pathology results. Procedure Code(s): --- Professional --- 95265 Diagnosis Code(s): --- Professional --- R13.10 CPT copyright 2020 [employer]. All rights reserved. Attending Participation: I personally performed the entire procedure. Scope In: 12:35:35 PM Scope Out: 12:42:47 PM MD Gayle Sher MD 10/23/2023 12:56:10 PM This report has been signed electronically by Gayle Arambula MD Number of Addenda: 0 Note Initiated On: 10/23/2023 12:17 [facility]02-12-2024 Miscellaneous Notes* Telephone Encounter - Juan Luis Oneil RN - 10/16/2023 12:10 PM EST Attempted to reach the patient at the contact number that they provided [phone] (home) . Unable to speak with patient so without identifying the patient the following information was left on their voice mail: Date of procedure, location and report time Prep instructions A message was left informing the patient/patient ambulatory service representative they must have a responsible adult [...] Number to call with questions or concerns [phone] Number to call to cancel their procedure [phone] Juan Luis Oneil RN documented in this encounterHolzer [facility]01-08-2024 NoteHNO ID: [id number] Author: ABNER ALMAZAN MD Service: ? Author Type: Physician Type: Progress Notes Filed: 09/11/2023 12:06 Note Text: NAME: Sherieroney Breauxn New Patient Zoom Visit AGE: [age] year old I have communicated my name and active licensure. The patient's identity and physical location were verified at the time of this visit. Either the patient or their legal ambulatory service representative has been informed of the risks and benefits of -- and alternatives to -- treatment through a remote evaluation and consents to proceed with the evaluation remotely. Referred by: Levi Johnson MD [id number] [facility] [id number] Referred for: an opinion regarding abdominal pain, [...] Past Histories independently gathered by the clinical field support engineer and the remaining scribed note accurately describes [...] pancreatic disease. BM frequen (more content not included)...[facility]12-19-2023 NoteHNO ID: [id number] Author: Levi Johnson MD Service: ? Author [...] physician/QHCP Medical Decision Making Level: 4 - ModerateOhiohealth O'[facility]leness [facility]12-08-2023 NoteHNO ID: [id number] Author: Leonie Tiwari MD Service: ? Author [...] OB History No obstetric history on file. 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 Leonie Tiwari [facility]11-28-2023 NoteHNO ID: [id number] Author: Pastora Oh MD Service: ? Author Type: Physician Type: Progress Notes Filed: 08/01/2023 2:01 PM Note Text: VIRTUAL VISIT PROGRESS NOTE This is a virtual visit using [employer] Video Visit. It required patient-provider interaction for the medical decision making as documented below. I have communicated my name and active licensure. The patient's identity and physical location were verified at the time of this visit. Either the patient or their legal ambulatory service representative has been informed of the risks [...] CT scan. The report was reviewed with Sehrie today. The previously seen haziness to the [...] She can reach out to me through [employer]hart if she has further questions or concerns. She is comfortable with this plan. There are no Patient Instructions on file for this visit. I spent a total of 15 minutes on the date of the service which included preparing to see the patient, ablh-ii-olne patient care, and completing clinical documentation Pastora Oh, [facility] Health11-10-2023 Evaluation + Plan note Extracted from: Title:ED Note Author:Jose Wilkinson DO Date :07/14/23 Acute COVID-19 (U07.1: COVID -19) Orders: acetaminophen, 650 mg = 2 tab(s), Tab, Oral, Once, Stop date 07/14/23 5:35:00 EST, STAT, Start date 07/14/23 5:35:00 EST, 07/14/23 5:35:00 EST ondansetron, 4 mg = 1 tab(s), Oral, q8hr, PRN Nausea/Vomiting, # 20 tab(s), Refills(s) 0, Pharmacy: [facility]/pharmacy #[id number], 158, cm, 01/23/23 22:00:00 EDT, Height/Length Dosing, 57, kg, 01/23/23 22:00:00 EDT, Weight Dosing penicillin V potassium, 500 mg = 1 tab(s), Oral, q6hr, # 40 tab(s), Refills(s) 0, Pharmacy: [facility]/pharmacy #[id number], 157.5, cm, 09/29/21 1:19:00 EST, Height/Length Dosing, 56.1, kg, 09/29/21 1:19:00 EST, Weight Dosing Extra Green Li Tube Extra Lav Tube Influenza A&B Ag Mononucleosis Screen Rapid COVID Antigen ([facility]) Future Appointments Appointment Date:07/17/2023 07:00:00 AM Scheduled Provider: Location:[facility].CAT SCAN Appointment Type:CT Abdomen/Pelvis Combo ([facility]) Future Scheduled Tests Radiology* CT Abdomen/Pelvis w/ Contrast 07/17/23 [facility]11-10-2023 Hospital Discharge instructions Patient Education 07/14/2023 06:37:01 [...] managed at home with rest, fluids, and nhgf-sby-hfarljc medicines. Serious symptoms may be treated in [...] water are not available, use alcohol-based hand stoker installation mechanic. Make sure that all people in your [...] managed at home with rest, fluids, and oavb-bid-ngglrzt medicines. This information is not intended to replace advice given to you by your health care provider. Make sure you discuss any questions you have with your health care provider. Document Revised: 08/11/2022 Document Reviewed: 08/11/2022 [employer] Patient Education 2022 MyNextRun. Follow Up Care 07/14/2023 05:18:44 With:Jenn Urban Address: [address] [place] [address]. [address] [place] [phone] Business (1) When:Within 3 Day(s) [facility]10-19-2023 Miscellaneous Notes* Telephone Encounter - Jonna Montes [...] she found some more information on her [employer] records from [facility] Emmanuel in [place]. She said she had a CT done [...] a call back for any further recommendation. [phone] (cell) [facility] History of Present illness Narrative* Pastora Oh MD - 06/22/2023 1:22 PM EDT General Surgery New Patient H&P PATIENT NAME: Sherie Belkys Assessment ASSESSMENT/PLAN: (R93.5) Abnormal CT of the [...] nodes. Pastora Oh MD documented in this [facility]23 Instructions* Patient Instructions* Pastora Oh MD - 06/21/2023 2:27 PM EDT Obtain the CT scan on or after 07/13. We will set up a Virtual Visit or Telephone follow up. 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 Adriano Bowman APRN.CNP June 19, 2023 11:00 AM documented in this encounterHol[facility]-09-2023 Evaluation + Plan note Extracted from: Title:ED [...] # 10 cap(s), Refills(s) 0, Pharmacy: [facility]/pharmacy #[id number], 157.4, cm, 04/12/23 2:00:00 EDT, Height/Length Dosing, 56, kg, 04/12/23 2:00:00 EDT, Weight Dosing Automated Diff Basic Metabolic Panel CBC w/ Auto Diff CT Abdomen/Pelvis w/o Contrast eGFR U Beta Hcg Qual UA With Cult Reflex [facility]08-09-2023 Hospital Discharge instructions Patient Education 04/12/2023 04:17:58 Renal Colic, Sapz-sq-Jcix Renal Colic Renal colic is pain that is caused by a kidney stone. The pain can be sharp and very bad. It may befelt in the back, belly, side (flank), or groin. It can cause nausea. Renal colic can come and go. Follow these instructions at home: Medicines Take ezoz-cqj-drvakjc and prescription medicines only as told by [...] is caused by a kidney stone. Take snsv-zmi-yblrmjs and prescription medicines only as told by [...] provider. Document Revised: 04/25/2022 Document Reviewed: 04/25/2022 [employer] Patient Education 2022 MyNextRun. Follow Up Care 04/12/2023 01:50:41 With:Ky CONNELLY Address: [facility] [address] [place] [address]- Business (1) When:04/15/2023 Comments:Take the Flomax once daily until you have completed the course. You can use the pain medication, nausea medication as prescribed as needed for pain. Please follow-up with your primary care doctor in addition to urology for further evaluation and management. Please return to the ED for any new or wor sening symptoms or With:Jenn Urban Address: [address] [place] [address]. [address] [place] [address]- Business (1) When:04/15/2023 [facility]07-16-2023 Evaluation + Plan noteExtracted from: Title:ED Note [...] Saline Lock Insert UA With Cult Reflex [facility]07-16-2023 Hospital Discharge instructions Patient Education 03/19/2023 08:36:32 [...] medicines. These include steroids, antibiotics, and some fqlk-zlz-xtibkgu medicines, such as aspirin or ibuprofen. Having [...] Follow these instructions at home: Medicines Take cuxb-sjr-kpwiuvu and prescription medicines only as told by [...] provider. Document Revised: 12/25/2021 Document Reviewed: 12/25/2021 [employer] Patient Education 2022 MyNextRun. Follow Up Care 03/19/2023 06:39:46 With:Jenn Urban Address: [address] [place] [address]- Business (1) When:03/22/2023 08:34:35 Comments:Call the office of [...] weakness, or any new or worsening symptoms. [facility]03-11-2023 Hospital Discharge instructions Patient Education 11/11/2022 22:54:11 Constipation, Adult, Lcfx-xc-Fjpy Constipation, Adult Constipation is when a person: [...] in fiber, or overly processed, such as: ?Guatemalan fries. ?Hamburgers. ?Cookies. ?Candy. ?Soda. Drink enough fluid to keep your pee (urine) clear or pale yellow. General instructions Exercise regularly or as told by your doctor. Go to the restroom when you feel like you need to poop. Do not hold it in. Take phpu-yib-vgyczjn and prescription medicines only as told by [...] 02/06/2009 Document Revised: 08/03/2018 Document Reviewed: 02/08/2017 [employer] Patient Education 2020 MyNextRun. Follow Up Care 11/11/2022 20:55:30 With:Jenn Urban Address: [address] [place] [address]. [address] [place] [phone] [facility] (1) When:11/14/2022 Comments:Follow-up with your primary care provider in 3 to 5 days. If symptoms worsen, do not improve, or new symptoms arise please report back to emergency department for further evaluation. [facility]03-10-2023 Hospital Discharge instructions Patient Education 11/11/2022 17:32:24 Kidney Stones, Itaj-oh-Ujdx Kidney Stones Kidney stones are rock-like masses [...] Follow these instructions at home: Medicines Take ehga-uhc-xlzhcxq and prescription medicines only as told by [...] 02/06/2009 Document Revised: 01/07/2020 Document Reviewed: 01/07/2020 [employer] Patient Education 2020 [employer] 11/11/2022 17:32:24 Constipation, Adult, Rerx-kk-Ssaj Constipation, Adult Constipation is when a person: [...] in fiber, or overly processed, such as: ?Guatemalan fries. ?Hamburgers. ?Cookies. ?Candy. ?Soda. Drink enough fluid to keep your pee (urine) clear or pale yellow. General instructions Exercise regularly or as told by your doctor. Go to the restroom when you feel like you need to poop. Do not hold it in. Take xzgz-jcx-doviurq and prescription medicines only as told by [...] 02/06/2009 Document Revised: 08/03/2018 Document Reviewed: 02/08/2017 [employer] Patient Education 2020 MyNextRun. Follow Up Care 11/11/2022 14:54:15 With:Jenn Urban Address: [address] [place] [address]- Business (1) When:11/14/2022 17:11:36 Comments:Follow-up with your primary care provider in 3 to 5 days. If symptoms worsen, do not improve, or new symptoms arise please report back to emergency department for further evaluation. [facility]03-10-2023 Evaluation + Plan noteExtracted from: Title:ED Note Author:Joon Pennington PA-C te:11/11/22 Abdominal pain (R10.9: Unspe cified abdominal pain) Constipation (K59.00: Constipation, unspecified) Orders: dicyclomine, 10 mg = 1 cap(s), Oral, QID, X 7 day(s), # 28 cap(s), Refills(s) 0, Pharmacy: [facility]/pharmacy #[id number], 158, cm, 11/11/22 15:01:00 EST, [...] # 527 gram, Refills(s) 0, Pharmacy: [facility]/pharmacy #[id number], 158, cm, 11/11/22 15:01:00 EST, Height/Length Dosing, 57, kg, 11/11/22 15:01:00 EST, Weight Dosing U Beta Hcg Qual UA With Cult Reflex Urine Culture XR Abdomen 1 View Diagnostic Tests Pending * Urine Culture 11/11/22 [facility]03-10-2023 Evaluation + Plan noteExtracted from: Title:ED Note Author:Joon Pennington PA-C te:11/11/22 Constipation (K59.00: Consti pation, unspecified) Nausea (R11.0: Nausea) Orders: dicyclomine, 20 mg = 2 mL, Injection, IntraMuscular, Once, Stop date 03/10/23 21:57:00 EST, STAT, Start date 11/11/22 21:57:00 EST, 11/11/22 21:57:00 EST dicyclomine, 10 mg = 1 cap(s), Oral, QID, X 7 day(s), # 28 cap(s), Refills(s) 0, Pharmacy: [facility]/pharmacy #[id number], 158, cm, 11/11/22 15:01:00 EST, [...] Oral, Once, 300 mL, Refill(s) 0, [facility]/pharmacy #[id number], 158, cm, 11/11/22 15:01:00 EST, Height/Length Dosing, 57, kg, 11/11/22 15:01:00 EST, Weight Dosing mineral oil, 133 mL, Rectal, Once for constipation, 133 mL, Refill(s) 0, [facility]/pharmacy #[id number], 158, cm, 11/11/22 15:01:00 EST, Height/Length Dosing, 57, kg, 11/11/22 15:01:00 EST, Weight Dosing ondansetron, 4 mg = 1 tab(s), Tab-Dis, Oral, Once, Stop date 11/11/22 21:07:00 EST, STAT, Start date 11/11/22 21:07:00 EST, 11/11/22 21:07:00 EST polyethylene glycol 3350, 17 gram, Oral, Daily, dissolve in water before taking, # 527 gram, Refills(s) 0, Pharmacy: [facility]/pharmacy #[id number], 158, cm, 11/11/22 15:01:00 EST, Height/Length Dosing, 57, kg, 11/11/22 15:01:00 EST, Weight Dosing U Beta Hcg Qual UA With Cult Reflex Urine Culture XR Abdomen 1 View [facility]10-25-2022 Hospital Discharge instructions Patient Education 06/28/2022 19:00:07 [...] Follow these instructions at home: Medicines Take yjxk-sep-skyyzzl and prescription medicines only as told by [...] of a condition that needs treatment. Take wnbr-wpj-braaxwq and prescription medicines only as told by [...] 02/17/2012 Document Revised: 09/09/2019 Document Reviewed: 09/09/2019 [employer] Patient Education 2020 MyNextRun. 06/28/2022 19:00:07 Upper Respiratory Infection, Adult Upper [...] medicines to help relieve symptoms, such as: Hscq-jpo-jikhcck cold medicines. Cough suppressants. Coughing is a [...] and other clear broths. 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 ?Avoid touching your mouth, face, eyes, or [...] 2002 Document Revised: 08/29/2019 Document Reviewed: 04/06/2018 [employer] Patient Education 2020 MyNextRun. Follow Up Care 06/28/2022 17:22:04 With:Jenn Urban Address: [address] [place] [address]. [address] [place] [phone]- Business (1) When:07/01/2022 18:46:11 [facility]10-25-2022 Evaluation + Plan note Diagnostic Tests Pending * Group A Strep by PCR [facility]/28/22 [facility]* Diagnosis Abnormal CT of the abdomen- Primary Nonspecific (abnormal) findings on radiological and other examination of abdominal area, including retroperitoneum Infection in abdomen (HCC) Unspecified peritonitis [facility]* Diagnosis Generalized abdominal pain Abdominal pain, generalized Other constipation Mesenteric panniculitis (HCC) Sclerosing mesenteritis Esophageal dysphagia Dysphagia, pharyngoesophageal phase documented in this encounter [facility] note* Diagnosis Generalized abdominal pain- Primary Abdominal pain, generalized [facility] noteNo assessment information availableC[facility] Work Phone: Hospital course Narrative No data available for this section [facility] Dis[facility] instructions No data available for this section [facility] note No data available for this section [facility] (narrative)* Outpatient Procedure (Routine) - Closed Specialty Diagnoses / Procedures Referred By Stephen watson Referred To Contact [facility] Diagnoses Esophageal dysphagia Procedures EGD - THERAPEUTIC, EUS, OR TUBE INTERVENTIONS EGD BALLOON DILATION ESOPHAGUS <30 MM DIAM Abner Almazan MD [facility] [address] [place] [address] [facility] [place] [address] [place] [address] Referral ID Status Reason Start Date Expiration Date V isits Requested Visits Authorized [id number] Closed Auto-Generate d Referral 09/11/2023 09/11/2024 1 1 * Outpatient Procedure (Routine) - Closed Specialty Diagnoses / Procedures Referred By Stephen watson Referred To Contact [facility] Diagnoses Generalized abdominal pain Other constipation Mesenteric panniculitis (HCC) Procedures COLONOSCOPY DIAGNOSTIC COLONOSCOPY FLX DX W/COLLJ SPEC WHEN Abner De La Torre MD [address] [place] [address] [place] [phone] Referral ID Status Reason Start Date Expiration Date V isits Requested Visits Authorized [id number] Closed Auto-Generate d Referral 09/11/2023 09/11/2024 1 1 [facility] for referral (narrative)* Outpatient Procedure (Routine) - Pending Review Specialty Diagnoses / Procedures Referred By Stephen watson Referred To Contact [facility] Diagnoses Generalized abdominal pain Procedures COLONOSCOPY DIAGNOSTIC COLONOSCOPY FLX DX W/COLLJ SPEC WHEN Abner De La Torre MD [address] [place] [address] [place] [phone] Referral ID Status Reason Start Date Expiration Date Visits Requested Visits Authorized [id number] Pending Review Auto-Generat ed Referral 02/16/2024 02/15/2025 1 1 [facility] for visit Narrative* Outpatient Procedure (Routine) - Closed Specialty Diagnoses / Procedures Referred By Stephen watson Referred To Contact [facility] Diagnoses Esophageal dysphagia Procedures EGD - THERAPEUTIC, EUS, OR TUBE INTERVENTIONS EGD BALLOON DILATION ESOPHAGUS <30 MM DIAM Abner Almazan MD [address] [place] [phone] [place] [phone] Referral ID Status Reason Start Date Expiration Date V isits Requested Visits Authorized [id number] Closed Auto-Generate d Referral 09/11/2023 09/11/2024 1 1 [facility] Summary Purpose Family History No Family History Records Found Relationship Condition Age at Onset Recorded Date/T marco grandparent Cerebrovascular accident (CVA) Unknown mother Overdose Unknown Advance Directives No Advanced Directives Records Found Advance Directive Response Recorded Date/ Time Advance Directives No November 26 025 1:26pm Reason for Referral Specialty Diagnoses / Procedures Referred By Contdayton t Referred To Contact CT IMAGING Diagnoses Infection in abdomen (HCC) Procedures CT ABD/PEL W IVCON CT ABD & PELVIS W/CONTRAST Pastora Oh MD [address] [address] [place] [address] Referral ID Status Reason Start Date Expiration Date Visits Requested Visits Authorized [id number] Pending Review Auto-Generat ed Referral 3 07/20/2024 1 1 Chief Complaint and Reason for Visit Chief Complaint Admit Date right ureteral stome w/hydronephrosis [facility] 2024 1:24pm Chief Complaint Admit Date right ureteral stome w/hydronephrosis [facility] 2024 1:24pm Unknown December 03, 2024 1:50 am Additional Source Comments Patient Care team informatio n (unrecognized section and content) 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 Relationship Specialty Start Date End Date Jenn Urban MD [address] [place] [address] [place] [phone] PCP - General Family Medicine 08/03/23 Jenn Urban MD [address] [place] [address] [place] [phone] Referring Family Medicine 08/12/23 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 Relationship Specialty Start Date End Date Jenn Urban MD [address] [place] [address] [place] [phone] PCP - General Family Medicine 08/03/23 Jenn Urban MD [address] [place] [address] [place] [phone] Referring Family Medicine 08/12/23 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 Relationship Specialty Start Date End Date Jenn Urban MD [address] [phone] PCP - General Family Medicine 08/03/23 Jenn Urban MD [address] [phone] Referring Family Medicine 08/12/23 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 Relationship Specialty Start Date End Date Jenn Urban MD [address] [phone] PCP - General Family Medicine 08/03/23 Jenn Urban MD [address] [phone] Referring Family Medicine 08/12/23 Team Status: Active Member Role Status Dates Jenn Urban MD Primary Care Provider Active Team Status: Inactive Member Role Status Dates Marybel Will MD Attending Provider Active Start : November 26, 2024 End: November 26, 2024 Jenn Urban MD Primary Care Provider Active Start: November 26, 2024 End: November 26, 2024 Team Status: Inactive Member Role Status Dates Zaira Coates DO Attending Provider Active Start: December 03, 2024 End: December 03, 2024 INFORMATION SOURCE (unrecogn ized section and content) DATE CREATED AUTHOR 11/19/2022 [facility] DATE CREATED AUTHOR AUTHOR'S ORGANIZ ATION 06/13/2024 [facility] DATE CREATED AUTHOR AUTHOR'S ORGANIZ ATION 06/30/2024 [facility] DATE CREATED AUTHOR AUTHOR'S ORGANIZ ATION 07/01/2024 [facility] DATE CREATED AUTHOR AUTHOR'S ORGANIZ ATION 07/06/2024 [facility] DATE CREATED AUTHOR AUTHOR'S ORGANIZ ATION 07/10/2024 [facility] DATE CREATED AUTHOR AUTHOR'S ORGANIZ ATION 07/13/2024 [facility] DATE CREATED AUTHOR AUTHOR'S ORGANIZ ATION 07/30/2024 [facility] DATE CREATED AUTHOR AUTHOR'S ORGANIZ ATION 07/31/2024 [facility] DATE CREATED AUTHOR AUTHOR'S ORGANIZ ATION 10/12/2024 [facility] DATE CREATED AUTHOR AUTHOR'S ORGANIZ ATION 10/13/2024 [facility] DATE CREATED AUTHOR AUTHOR'S ORGANIZ ATION 10/14/2024 [facility] DATE CREATED AUTHOR AUTHOR'S ORGANIZ ATION 10/18/2024 [facility] DATE CREATED AUTHOR AUTHOR'S ORGANIZ ATION 10/28/2024 [facility] DATE CREATED AUTHOR AUTHOR'S ORGANIZ ATION 10/29/2024 [facility] DATE CREATED AUTHOR AUTHOR'S ORGANIZ ATION 10/31/2024 [facility] DATE CREATED AUTHOR AUTHOR'S ORGANIZ ATION 12/07/2024 [facility] DATE CREATED AUTHOR AUTHOR'S ORGANIZ ATION 12/08/2024 [facility] Source Comments (unrecognize d section and content) In the event this informatio n is protected by the Federal Confidentiality of Alcohol and Drug Abuse Patient Records regulations: The Federal rules restrict any use of the information to criminally investigate or prosecute any alcohol or drug abuse patient.[facility] the event this information is protected by the Federal Confidentiality of Alcohol and Drug Abuse Patient Records regulations: The Federal rules restrict any use of the information to criminally investigate or prosecute any alcohol or drug abuse patient.[facility] the event this information is protected by the Federal Confidentiality of Alcohol and Drug Abuse Patient Records regulations: The Federal rules restrict any use of the information to criminally investigate or prosecute any alcohol or drug abuse patient.[facility] the event this information is protected by the Federal Confidentiality of Alcohol and Drug Abuse Patient Records regulations: The Federal rules restrict any use of the information to criminally investigate or prosecute any alcohol or drug abuse patient.[facility] the event this information is protected by the Federal Confidentiality of Alcohol and Drug Abuse Patient Records regulations: The Federal rules restrict any use of the information to criminally investigate or prosecute any alcohol or drug abuse patient.[facility] the event this information is protected by the Federal Confidentiality of Alcohol and Drug Abuse Patient Records regulations: The Federal rules restrict any use of the information to criminally investigate or prosecute any alcohol or drug abuse patient.[facility] the event this information is protected by the Federal Confidentiality of Alcohol and Drug Abuse Patient Records regulations: The Federal rules restrict any use of the information to criminally investigate or prosecute any alcohol or drug abuse patient.[facility] the event this information is protected by the Federal Confidentiality of Alcohol and Drug Abuse Patient Records regulations: The Federal rules restrict any use of the information to criminally investigate or prosecute any alcohol or drug abuse patient.[facility] Reason for Visit (unrecogniz ed section and [...] BE BASED ON THE PRIMARY CLINICAL RECORDS. [facility] [employer] [facility]. provides no warranty or guarantee of the accuracy or completeness of information in this document.
[2024-12-12] MEDS: HYDROCODONE/ACET 5-325 MG TABLET 1 TAB PO (01:16)
[2024-12-12 01:31] LABS: Bilirubin Urine SMALL (NEGATIVE); Blood Urine LARGE (NEGATIVE); Clarity Urine CLEAR (CLEAR); Color Urine YELLOW (YELLOW); Glucose Urine UA NEGATIVE (NEGATIVE); Ketones Urine TRACE mg/dL (NEGATIVE); Leukocyte Esterase Urine MODERATE (NEGATIVE); Nitrite Urine NEGATIVE (NEGATIVE); Protein Urine >=300 mg/dL (NEG/TRACE); Specific Gravity Urine 1.025 (1.005-1.025)
[2024-12-12 01:43] LABS: Bacteria Urine SMALL #/HPF (NONE SEEN); RBC Urine 50-75 #/HPF (0-2)
[2024-12-12 01:44] LABS: Cast Seen? NONE SEEN #/LPF (NONE SEEN); Crystals Seen? None Seen #/HPF (None Seen); Mucus Urine NONE SEEN (NONE SEEN); Squamous Epithelial Cell Urine FEW #/LPF (NONE/RARE); Urine Culture Indicated YES-FRMC
--- NOTE | 2024-12-12 02:13 | ED_ITS ---
HPI - Female Genitourinary General Chief complaint: Urogenital-Female Stated complaint: PAIN IN BACK, STENT PAIN, HERE A WEEK AGO Time Seen by Provider: 12/12/24 00:59 Source: patient Mode of arrival: walk-in Limitations: no limitations History of Present Illness HPI Narrative: This 24-year-old female who is seen by myself on December 03, 9 days ago for right sided flank pain after having a ureteral stent placed for a large kidney stone presents for evaluation of ongoing flank pain with mild nausea. The patient had been discharged after receiving the stent without any pain medication and presented the emergency department with pain, nausea and vomiting. She was discharged home with a prescription for Gridley, Zofran Colace and treated empirically for blood in her urine. Her urine grew out group B's staph aga lactia. She states that she called her urologist stating that she wants to get the stent out and the stent is supposed to come out next week however she then told them that she wanted to be sedated to have the stent removed and they told her that it would take longer for them to schedule the stent removal if she was going to have to be sedated for it. She is now reconsidering this but out of her pain medication. She is not having any fever or vomiting. She states the pain in her back is severe making her unable to lie on her right side. Related Data Home Medications ?Medication ?Instructions ?Recorded ?Confirmed cephalexin 500 mg capsule 500 mg PO BID 12/12/24 12/12/24 docusate sodium 100 mg capsule mg PO 12/12/24 oxybutynin chloride 5 mg tablet mg 12/12/24 Previous Rx's ?Medication ?Instructions ?Recorded prednisone 10 mg tablet See Rx Instructions .Route 07/13/24 .COMPLEX #30 tabs ondansetron 4 mg disintegrating 4 mg PO Q6H PRN nausea and 11/21/24 tablet vomiting #20 tabs tamsulosin 0.4 mg capsule (Flomax) 0.4 mg PO DAILY #7 caps 11/21/24 Allergies Allergy/AdvReac Type Severity Reaction Status Date / Time No Known Drug Allergies Allergy Verified 12/12/24 00:56 Review of Systems ROS Status of ROS 10 or more systems reviewed and unremark able except as noted in history and below PFSH PFSH Social History Little interest or pleasure in doing things: not at all Feeling down, depressed, or hopeless: not at all Exam Narrative Exam Narrative: Vital signs and Nursing Notes reviewed: Is afebrile with a normal pulse, normal blood pressure, she is not hypoxic with pulse ox of 99% on room air General: Awake, alert, oriented, no acute distress, lying comfortably on the stretcher-she does not appear to be in any acute distress HEENT: Normocephalic atraumatic, mucous membranes are moist and pink, eyes are clear, normal conjunctiva, vision is grossly intact, posterior pharynx is normal in appearance. Chest: Lungs are clear to auscultation with good air entry, there is no wheezing rhonchi or rales appreciated no accessory muscle use, patient is speaking in complete sentences-no chest wall tenderness to palpation CVS: Regular rate and rhythm S1-S2, no murmurs rubs or gallops, pulses are brisk and equal bilaterally ABD: Soft, nondistended, nontender, no rebound guarding or rigidity, bowel sounds are normal, no pulsatile masses appreciated, no CVA tenderness appreciated Extremities: Moving all extremities, no lower extremity tenderness or swelling noted, negative Homans' sign, pulses are brisk and equal bilaterally Skin: Normal in appearance without rash,pallor, petechiae or purpura Neuro: No focal deficits Constitutional Vital Signs, click to edit/add: Last Vital Signs Temp 98.1 F 12/12/24 00:52 Pulse 80 12/12/24 00:52 Resp 16 12/12/24 00:52 BP 130/60 12/12/24 00:52 Pulse Ox 99 12/12/24 00:52 O2 Del Method Room Air 12/12/24 00:52 Course Vital Signs Vital signs: Vital Signs Temperature 98.1 F 12/12/24 00:52 Pulse Rate 80 12/12/24 00:52 Respiratory Rate 16 12/12/24 00:52 Blood Pressure 130/60 12/12/24 00:52 Pulse Oximetry 99 12/12/24 00:52 Oxygen Delivery Method Room Air 12/12/24 00:52 Temperature 98.1 F 12/12/24 00:52 Pulse Rate 80 12/12/24 00:52 Respiratory Rate 16 12/12/24 00:52 Blood Pressure 130/60 12/12/24 00:52 Pulse Oximetry 99 12/12/24 00:52 Oxygen Delivery Method Room Air 12/12/24 00:52 MDM - Female Genitourinary MDM Narrative Medical decision making narrative: This 24-year-old female presents for evaluation of right flank pain with nausea. She had a ureteral stent placed with Dr. Borja several weeks ago. She was seen in follow-up here on December complaining of pain. She was not discharged home with any pain medication besides Flomax. At that time she was medicated in the emergency department and urine was contaminated with blood and concerning for infection and she was discharged home with prescription for Keflex Zofran Gridley and Colace. She has been taking the Colace and passing gas but still not having much in rooms of bowel movements. She states her pain is severe and she cannot lie back. She did call the urologist office stating that she wants to get the stent out but was told that her urologist is on vacation this week. She has a follow-up appointment when her urologist gets back from vacation. In the meantime she told the urology group that she wanted to be sedated to have the stent removed which may prolong her time with the stent. Her vital signs are stable. She is not having any fever. She appears comfortable. An x-ray was done of the abdomen that shows the stent in good place with a large amount of stool in the right side of the colon. There is no free air or other notable abnormality. Urine was ordered and is clear with large blood and 5-10 white blood cells per high-power field. This is likely not infected at this time. Culture is pending. She is not having any fever. She is not toxic in appearance. Vital signs are stable. She was medicated with a dose of Gridley and Zofran in the emergency department. The results of her x-ray were discussed with her. She states she is taking the Colace but has not taken any cathartics because she is afraid that she will cause her stent to be displaced if she is having to strain hard to have a bowel movement. I encouraged her to take Metamuci your MiraLAX l in addition to the Colace to help start to empty her colon. She is in agreement with this plan. She will be given a short course of pain medication at the time of discharge but I explained to her that I cannot continue to prescribe narcotic medications from the emergency department for her. I did review her [facility] report and she has not received any scheduled medications besides what she was given by me when she was seen in this emergency department on . Lab Data Attestation: I reviewed the patient's lab results. Labs: Lab Results 12/12/24 Range/Units 01:27 Urine Color Yellow (YELLOW) Urine Clarity Clear (CLEAR) Urine pH 7.0 (5.0-9.0) Ur Specific [place] 1.025 (1.005-1.025) Urine Protein >=300 A (NEG/TRACE) mg/dL Urine Glucose (UA) Negative (NEGATIVE) mg/dL Urine Ketones Trace A (NEGATIVE) mg/dL Urine Occult Blood Large A (NEGATIVE) Urine Nitrite Negative (NEGATIVE) Urine Bilirubin Small A (NEGATIVE) Urine Urobilinogen 2.0 A (0.2-1.0) EU/dL Ur Leukocyte Esterase Moderate A (NEGATIVE) Urine RBC 50-75 A (0-2) #/HPF Urine WBC 5-10 A (NONE SEEN) #/HPF Ur Squamous Epith Cells Few A (NONE/RARE) #/LPF Urine Crystals None seen (None Seen) #/HPF Urine Bacteria Small A (NONE SEEN) #/HPF Urine Casts None seen (NONE SEEN) #/LPF Urine Mucus None seen (NONE SEEN) Ur Culture Indicated? Yes-[facility] – [place] Discharge Plan Discharge Chief Complaint: Urogenital-Female Clinical Impression: Post-op pain, Constipation by delayed colonic transit Patient Disposition: Home, Self-Care Time of Disposition Decision: 02:22 Condition: Good Prescriptions / Home Meds: No Action prednisone 10 mg tablet See Rx Instructions .ROUTE .COMPLEX Qty: 30 0RF Rx Instructions: 4 by mouth daily for three days then 3 by mouth daily for three days then 2 by mouth daily for three days then 1 by mouth daily for three days tamsulosin [Flomax] 0.4 mg capsule 0.4 mg PO DAILY Qty: 7 0RF ondansetron 4 mg tablet,disintegrating 4 mg PO Q6H PRN (Reason: nausea and vomiting) Qty: 20 0RF oxybutynin chloride 5 mg tablet cephalexin 500 mg capsule 500 mg PO BID docusate sodium 100 mg capsule PO Print Language: Belgian Instructions: Constipation (ED), High Fiber Diet (ED), Ureteral Stent Placement (DC) Referrals: AUSTYN URBAN [Primary Care Provider] - 1 week Discharge Date/Time: 12/12/24 02:29
== END 2024-12-12 02:29 | disposition home or self-care (01) ==
PROVIDERS: Emergency Provider Emergency Medicine; Family Provider Family Medicine; PCP Family Medicine
DX: K59.09 Other constipation (principal); G89.18 Other acute postprocedural pain; Z96.0 Presence of urogenital implants; N20.0 Calculus of kidney
CPT/HCPCS: 74019; 81001; 87086; 99284

== ENCOUNTER 2025-02-04 16:50 | Emergency (ER) | payer OTHER, SELFPAY ==
[2025-02-04 16:55] VITALS: BP 137/84; PULSE 98; TEMP 36.6; O2SAT 97; BMI 26.5
--- NOTE | 2025-02-04 17:12 | ED_ITS ---
HPI HPI - General Adult General Chief complaint: Upper Respiratory Infection Stated complaint: lump in throat and armpit Time Seen by Provider: 02/04/25 16:53 Source: patient Mode of arrival: ambulance History of Present Illness HPI narrative: 24-year-old female presents for the feeling that she has a lump in her throat and a swollen area in her right armpit. She has had this for the past few days. She is mostly worried about having mono in her throat. No fever or vomiting or drainage from her axilla. She has minimal pain. Related Data Home Medications ?Medication ?Instructions ?Recorded ?Confirmed clonidine HCl 0.3 mg tablet mg 02/04/25 Previous Rx's ?Medication ?Instructions ?Recorded cephalexin 500 mg capsule 500 mg PO QID 10 days #40 ca ps 02/04/25 sulfamethoxazole 800 1 tab PO BID 10 days #20 tab s 02/04/25 mg-trimethoprim 160 mg tablet (Bactrim DS) Allergies Allergy/AdvReac Type Severity Reaction Status Date / Time No Known Drug Allergies Allergy Verified 02/04/25 16:54 Opioid HPI Opioid Management Most Recent Opioid Data: Last Pain Scale 8 12/03/24, 02:10 Review of Systems ROS Narrative A ten point review of systems is negative except as noted above. PFSH PFSH Social History Little interest or pleasure in doing things: not at all Feeling down, depressed, or hopeless: not at all Exam Narrative Exam Narrative: Nurses note and vital signs reviewed and patient is not hypoxic. General: The patient appears well and in no apparent distress. Patient is resting comfortably on cart. Skin: Warm, dry, no pallor noted. There is no rash noted. In the right axilla is a 1 x 1 cm firm, nonfluctuant, raised area with some mild erythema. No open area or drainage Head: Normocephalic, atraumatic Eye: Normal conjunctiva, no drainage Ears, Nose, Mouth, and Throat: oral mucosa is moist. Nares patent. No exudate noted. No swelling. Uvula midline. She is handling oral secretions well. Cardiovascular: Regular Rate and Rhythm Respiratory: Patient is in no distress, no accessory muscle use, lungs are clear to auscultation, no wheezing, rales or rhonchi Back: non-tender GI: Soft and nontender Musculoskeletal: The patient has no evidence of calf tenderness, no pitting edema, symmetrical pulses noted bilaterally Neurological: A&O, normal speech Psychiatric: Cooperative Constitutional Vital Signs, click to edit/add: Last Vital Signs Temp 97.9 F 02/04/25 16:55 Pulse 98 H 02/04/25 16:55 Resp 16 02/04/25 16:55 BP 137/84 02/04/25 16:55 Pulse Ox 97 02/04/25 16:55 O2 Del Method Room Air 02/04/25 16:55 Course Vital Signs Vital signs: Vital Signs Temperature 97.9 F 02/04/25 16:55 Pulse Rate 98 H 02/04/25 16:55 Respiratory Rate 16 02/04/25 16:55 Blood Pressure 137/84 02/04/25 16:55 Pulse Oximetry 97 02/04/25 16:55 Oxygen Delivery Method Room Air 02/04/25 16:55 Temperature 97.9 F 02/04/25 16:55 Pulse Rate 98 H 02/04/25 16:55 Respiratory Rate 16 02/04/25 16:55 Blood Pressure 137/84 02/04/25 16:55 Pulse Oximetry 97 02/04/25 16:55 Oxygen Delivery Method Room Air 02/04/25 16:55 Medical Decision Making MDM Narrative Medical decision making narrative: Strep and monotest are negative. She will be prescribed Bactrim and Keflex for the axillary issue. Incision and drainage is not indicated at this time. It is small and nonfluctuant. Treatment diagnosis and follow-up were discussed with the patient. Differential Diagnosis Differential Diagnosis: Cellulitis, abscess, mono, strep throat Lab Data Lab results reviewed: Yes I reviewed the patient's lab results Labs: Lab Results 02/04/25 02/04/25 Range/Units 17:07 17:18 Monoscreen Negative (NEGATIVE) Streptococcus Screen Negative Discharge Plan Discharge Chief Complaint: Upper Respiratory Infection Clinical Impression: Abscess of axilla, right Patient Disposition: Home, Self-Care Time of Disposition Decision: 18:07 Condition: Good Mode of Transportation: Private Vehicle Prescriptions / Home Meds: New sulfamethoxazole-trimethoprim [Bactrim DS] 800-160 mg tablet 1 tab PO BID 10 Days Qty: 20 0RF cephalexin 500 mg capsule 500 mg PO QID 10 Days Qty: 40 0RF No Action clonidine HCl 0.3 mg tablet Print Language: British Instructions: Abscess (ED) Additional Instructions: Warm compresses for 10 to 15 minutes 4 times a day. Referrals: AUSTYN URBAN [Primary Care Provider, Family Practice] - 1 week
[2025-02-04 17:58] LABS: Internal Control Within Normal Limits; Strep A Antigen Screen Negative
[2025-02-04 18:02] LABS: Internal Control Within Normal Limits; Mono Screen NEGATIVE (NEGATIVE)
== END 2025-02-04 18:50 | disposition home or self-care (01) ==
PROVIDERS: Emergency Provider Emergency Medicine; Family Provider Family Medicine; PCP Family Medicine
DX: L02.411 Cutaneous abscess of right axilla (principal)
CPT/HCPCS: 86308; 87070; 87077; 87880; 99283